=== PATIENT | male | born 1960 | race Caucasian/White ===

== ENCOUNTER 2018-01-31 13:59 | Inpatient (IN) | payer OTHER ==
[~2018-01-31] VITALS: Ht 186.7 cm; Wt 145.1 kg
[2018-01-31 15:31] VITALS: BP 176/78
[2018-01-31] MEDS ORDERED: ASPI-630 PO (16:04)
[2018-01-31] MEDS ORDERED: MULT1TAB52 PO (16:04)
[2018-01-31] MEDS ORDERED: CHOL100013 PO (16:04)
[2018-01-31] MEDS ORDERED: PIOG30TA41 PO (16:04)
[2018-01-31] MEDS ORDERED: LISI-130 PO (16:04)
[2018-01-31 16:24] LABS: BASO # 0.1 x10^3/uL (0.0-0.2); BASO % 1 % (0-3); EOS # 0.1 x10^3/uL (0.0-0.7); EOS % 1 % (0-3); HEMATOCRIT 42.6 % (39.0-53.0); HEMOGLOBIN 14.7 g/dL (13.0-17.5); LYMPH # 1.9 x10^3/uL (1.0-4.8); LYMPH % 24 % (24-48); MEAN CORPUSCULAR HEMOGLOBIN 32 pg (25-35); MEAN CORPUSCULAR HGB CONC 35 g/dL (31-37); MEAN CORPUSCULAR VOLUME 92 fL (79-100); MONO # 0.8 x10^3/uL (0.0-1.1); MONO % 10 % (0-9); NEUT # 5.3 x10^3uL (1.8-7.7); NEUT % 64 % (31-73); PLATELET COUNT 222 x10^3/uL (140-400); RED BLOOD COUNT 4.62 x10^6/uL (4.30-5.70); RED CELL DISTRIBUTION WIDTH 13.6 % (11.5-14.5); WHITE BLOOD COUNT 8.3 x10^3/uL (4.0-11.0)
[2018-01-31] MEDS: MORPHINE SULFATE 4 MG/ML VIAL. IV PRN ×2 (16:37→21:35)
[2018-01-31] MEDS ORDERED: methylPREDNISolone SOD SUCC PF 125 MG/2 ML VIAL. IV ONE (16:45)
[2018-01-31 16:55] LABS: ALBUMIN 3.4 g/dL (3.4-5.0); ALBUMIN/GLOBULIN RATIO 0.8 (1.0-1.7); CALCIUM 9.4 mg/dL (8.5-10.1); CREATININE 0.9 mg/dL (0.7-1.3); POTASSIUM 4.1 mmol/L (3.5-5.1); TOTAL BILIRUBIN 0.5 mg/dL (0.2-1.0); TOTAL PROTEIN 7.9 g/dL (6.4-8.2)
[2018-01-31] MEDS ORDERED: INSULIN LISPRO 300 UNITS/3 ML INSULN.PEN. SQ SCH (17:00)
[2018-01-31] MEDS ORDERED: DEXTROSE 50% 25 GM / 50ML DISP.SYRIN. IV PRN (18:30)
[2018-01-31 19:00] VITALS: BP 163/92
[2018-01-31] MEDS: HYDROcodone/APAP 5/325MG 1 TAB TABLET PO PRN (19:34)
[2018-01-31 23:00] VITALS: BP 170/87
[2018-02-01 03:00] VITALS: BP 162/78
[2018-02-01] MEDS: MORPHINE SULFATE 2 MG/ML VIAL. IV PRN ×2 (03:20→21:31)
[2018-02-01] MEDS ORDERED: PROPOFOL 20 ML IV ONE (06:54)
[2018-02-01 07:00] VITALS: BP 158/85
--- NOTE | 2018-02-01 08:34 | RAD ---
EXAM: Lumbar spine MRI without contrast. HISTORY: Back pain and leg weakness. TECHNIQUE: Multiplanar, multisequence magnetic resonance imaging of the lumbar spine was performed without contrast. COMPARISON: None. FINDINGS: There is a moderate subacute compression fracture of L1 with approximately 50 percent loss of central vertebral body height. There is no significant retropulsion of the cortex at this level. There is a moderate to severe compression fracture at L4 with approximately 75 percent loss of central vertebral height. This demonstrates slight edema along the fracture line, suggesting a late subacute etiology. There is no retropulsion of the cortex at this level. There is a moderate to severe compression fracture of L3 with approximately 75 percent loss of central vertebral height. This demonstrates trace edema along the fracture line, suggesting a late subacute to early chronic etiology. There is no retropulsion of the cortex at this level. There is a chronic mild compression fracture of T11, chronic moderate compression fracture of L2 and chronic minimal compression fracture of L5, none of which demonstrate retropulsion of the cortex into the central canal. There is mild scoliosis. There is grade 1 anterolisthesis of L5 on S1, measuring 12 mm. There are pars defects at this level. There is degenerative endplate remodeling and Schmorl's node formation at all levels. There is disc desiccation at multiple levels. There is endplate remodeling with disc space narrowing predominantly at L5-S1. There is congenital narrowing of the central canal at the upper and mid lumbar levels. There is epidural lipomatosis primarily at the lower lumbar levels and within the sacral canal. At T12-L1, there is mild bilateral facet arthropathy. There is epidural lipomatosis. There is congenital narrowing of the central canal. There is mild central canal stenosis. At L1-L2, there is a mild disc bulge and endplate remodeling. There is mild bilateral facet arthropathy. There is epidural lipomatosis. There is congenital narrowing of the central canal. There is mild bilateral foraminal stenosis. There is moderate central canal stenosis. At L2-L3, there is a disc bulge and endplate osteophytosis. There is mild left greater than right facet arthropathy. There is epidural lipomatosis. There is congenital narrowing of the central canal. There is moderate central canal stenosis with crowding of the nerve roots. At L3-L4, there is a diffuse disc bulge and endplate osteophytosis. There is mild bilateral facet arthropathy. There is epidural lipomatosis. There is congenital narrowing of the central canal. There is moderate to severe central canal stenosis with crowding of the nerve roots. At L4-L5, there is a disc bulge and endplate osteophytosis. There is moderate bilateral facet arthropathy. There is mild right foraminal stenosis. There is epidural lipomatosis. There is mild central canal stenosis. At L5-S1, there is a right foraminal to extra foraminal disc protrusion superior extrusion superimposed on a disc bulge and endplate osteophytosis. There is moderate facet arthropathy. There is grade 1 anterolisthesis with pars defects. There is epidural lipomatosis. There is severe right and mild left foraminal stenosis. There is moderate narrowing of the thecal sac and crowding of the nerve roots due to aforementioned epidural lipomatosis. IMPRESSION: 1. Moderate subacute compression fracture of L1. 2. Moderate to severe suspected late subacute compression fracture of L4. 3. Moderate to severe suspected late subacute to early chronic compression fracture of L3. 4. Chronic mild compression fracture of T11, chronic moderate compression fracture of L2 and chronic minimal compression fracture of L5. 5. Multilevel degenerative change throughout the lumbar spine, described in detail above. The combination of degenerative changes and epidural lipomatosis and congenital narrowing of the central canal results in stenosis noted above. 6. Grade 1 anterolisthesis of L5 on S1 with associated bilateral pars defects. Electronically signed by: Argelia Bradford MD (02/01/2018 8:30 AM) [id number]
[2018-02-01] MEDS: MORPHINE SULFATE 4 MG/ML VIAL. IV PRN ×3 (08:54→17:46)
[2018-02-01] MEDS: MULTIVITAMIN with MINERAL TABLET. PO SCH (08:55)
[2018-02-01] MEDS: PIOGLITAZONE 15 MG TABLET. PO SCH (08:55)
[2018-02-01] MEDS: LISINOPRIL 20 MG TABLET PO SCH (08:55)
[2018-02-01] MEDS: ASPIRIN CHEWABLE 81 MG TABLET. PO SCH (08:55)
[2018-02-01] MEDS: CHOLECALCIFEROL (VITAMIN D3) 1,000 UNIT TABLET PO SCH (08:55)
--- NOTE | 2018-02-01 09:01 | HP ---
ADMIT DATE: 01/31/2018 CHIEF COMPLAINT AND HISTORY OF PRESENT ILLNESS: This 58-year-old white male is well known to me from followup in the office. The patient was admitted for intractable back pain with lumbar radiculopathy. This has been going on at least 6 weeks. We did, after initial denials for MRI of the lumbar spine, have him sit up earlier this week and his pain was so severe he was not able to lay down for it. It was felt that he needed to be admitted for better pain control and possibly sedation to get an MRI done. The pain is predominantly back related, goes down his left thigh on the outside with a burning. It is much worse lying down. He does notice increased pain with cough or sneeze. He denies any definite weakness or bladder difficulties with the same. PAST MEDICAL HISTORY: Remarkable for diabetes, prior Krum-Schlatter surgery as a teenager. 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 MEDICATIONS: Brought with the patient, listed on the computer, have been addressed. ALLERGIES: He has no known drug allergies. SOCIAL HISTORY: He is a tobacco as well as alcohol user, but not to excess. Single, lives with his mom and cares for his elderly mother, works at [employer]. FAMILY HISTORY: Noncontributory. REVIEW OF SYSTEMS: As mentioned above. PHYSICAL EXAMINATION: GENERAL: He is well-developed, well-nourished white male in a moderate amount of distress, sitting up in the bed. VITAL SIGNS: Remarkable for elevated blood pressure, likely due to pain. He is afebrile. HEAD, EYES, EARS, NOSE AND THROAT: Remarkable for glasses. NECK: Supple without adenopathy or thyromegaly. CHEST: Clear to auscultation and percussion. HEART: Regular rate and rhythm without S3, S4 or murmur. ABDOMEN: Soft, nontender, without hepatosplenomegaly or masses. EXTREMITIES: Without cyanosis, clubbing, edema. NEUROLOGIC: He is intact. IMPRESSION: Intractable lumbar radiculopathy. PLAN: At this point, his aspirin will be held in hopes of an epidural steroid injection. I am going to ask Dr. Peralta from pain management for the same. Dr. Deutsch to see him in consultation for possible surgery if needed. He does seem to be somewhat improved this morning after the dose of Solu-Medrol, although it has raised his blood sugars, but this may be something we have to tolerate for the meantime to get him relief enough to be able to function as an outpatient. BUSTER LEMONS MD DR: JAZIEL/helene JOB#: [id number] / [id number]
[2018-02-01] MEDS: INSULIN LISPRO 300 UNITS/3 ML INSULN.PEN. SQ SCH ×3 (09:03→17:56)
[2018-02-01] MEDS: HYDROcodone/APAP 5/325MG 1 TAB TABLET PO PRN ×2 (10:08→15:02)
[2018-02-01] MEDS ORDERED: IOHEXOL 180 MG/ML 10 ML VIAL. ONE (10:37)
[2018-02-01] MEDS ORDERED: methylPREDNISolone ACETATE 80 MG/ML VIAL. ONE (10:37)
[2018-02-01] MEDS ORDERED: methylPREDNISolone ACETATE 40 MG/ML VIAL. ONE (10:37)
[2018-02-01 10:49] VITALS: BP 172/82
[2018-02-01] MEDS ORDERED: DOCUSATE SODIUM 100 MG CAPSULE. PO PRN (12:00)
[2018-02-01 15:00] VITALS: BP 142/78
--- NOTE | 2018-02-01 15:24 | PDOC ---
SUBJECTIVE Subjective low back and left leg pain OBJECTIVE Objective 58 yo male C/O low back and left LE pain X 6 weeks, no specific injury/accident Vital Signs Vital Signs Date Time Temp Pulse Resp B/P (MAP) Pulse Ox O2 Delivery O2 Flow Rate FiO2 02/01/18 15:02 Room Air 02/01/18 14:00 Room Air 02/01/18 13:20 Room Air 02/01/18 11:52 Room Air 02/01/18 10:49 97.9 99 20 172/82 (112) 98 Room Air 97.9 02/01/18 10:08 20 93 Room Air 02/01/18 08:55 87 164/89 02/01/18 08:54 Room Air 02/01/18 08:15 98.1 90 15 173/86 98 Room Air 98.1 02/01/18 07:00 97.7 80 20 158/85 (109) 97 Room Air 97.7 02/01/18 03:53 15 92 Room Air 02/01/18 03:20 17 92 Room Air 02/01/18 03:00 98.2 98 18 162/78 (106) 92 Room Air 98.2 01/31/18 23:00 98.2 105 20 170/87 (114) 92 Room Air 98.2 01/31/18 22:58 14 96 01/31/18 21:35 15 96 Room Air 01/31/18 20:41 14 96 01/31/18 19:34 15 96 Room Air 01/31/18 19:00 98.3 77 18 163/92 (115) 93 Room Air 98.3 01/31/18 16:37 Room Air 01/31/18 16:29 Room Air 01/31/18 15:31 98.0 83 16 176/78 (110) 96 Room Air 98.0 I & O Intake and Output 02/01/18 07:00 Intake Total 100 ml Balance 100 ml Intake Oral 100 ml # Voids 3 PHYSICAL EXAM Physical Exam A&O X 3 HEENT NCAT BS= and clear Heart s1,s2 clear Abd obese, soft nd,nt LE DTR's 1+/$ bilat; motor 4/5left; 5/5right Back with increased pain with extension and when standing ASSESSMENT/PLAN Assessment/Plan MRI reviewed with pt. Rubi MTZ today F/U as OP COMMENT Lab Laboratory Tests Test 01/31/18 15:46 01/31/18 16:10 01/31/18 19:46 02/01/18 08:52 Glucose (Fingerstick) 107 mg/dL (70-99) 245 mg/dL (70-99) 166 mg/dL (70-99) White Blood Count 8.3 x10^3/uL (4.0-11.0) Red Blood Count 4.62 x10^6/uL (4.30-5.70) Hemoglobin 14.7 g/dL (13.0-17.5) Hematocrit 42.6 % (39.0-53.0) Mean Corpuscular Volume 92 fL (79-100) Mean Corpuscular Hemoglobin 32 pg (25-35) Mean Corpuscular Hemoglobin Concent 35 g/dL (31-37) Red Cell Distribution Width 13.6 % (11.5-14.5) Platelet Count 222 x10^3/uL (140-400) Neutrophils (%) (Auto) 64 % (31-73) Lymphocytes (%) (Auto) 24 % (24-48) Monocytes (%) (Auto) 10 % (0-9) Eosinophils (%) (Auto) 1 % (0-3) Basophils (%) (Auto) 1 % (0-3) Neutrophils # (Auto) 5.3 x10^3uL (1.8-7.7) Lymphocytes # (Auto) 1.9 x10^3/uL (1.0-4.8) Monocytes # (Auto) 0.8 x10^3/uL (0.0-1.1) Eosinophils # (Auto) 0.1 x10^3/uL (0.0-0.7) Basophils # (Auto) 0.1 x10^3/uL (0.0-0.2) Sodium Level 132 mmol/L (136-145) Potassium Level 4.1 mmol/L (3.5-5.1) Chloride Level 95 mmol/L (98-107) Carbon Dioxide Level 29 mmol/L (21-32) Anion Gap 8 (6-14) Blood Urea Nitrogen 18 mg/dL (8-26) Creatinine 0.9 mg/dL (0.7-1.3) Estimated GFR (Cockcroft-Gault) 87.0 BUN/Creatinine Ratio 20 (6-20) Glucose Level 127 mg/dL (70-99) Calcium Level 9.4 mg/dL (8.5-10.1) Total Bilirubin 0.5 mg/dL (0.2-1.0) Aspartate Amino Transf (AST/SGOT) 20 U/L (15-37) Alanine Aminotransferase (ALT/SGPT) 29 U/L (16-63) Alkaline Phosphatase 167 U/L (46-116) Total Protein 7.9 g/dL (6.4-8.2) Albumin 3.4 g/dL (3.4-5.0) Albumin/Globulin Ratio 0.8 (1.0-1.7) Test 02/01/18 11:05 Glucose (Fingerstick) 201 mg/dL (70-99) MANJINDER MIN MD Feb 01, 2018 15:24
[2018-02-01 19:00] VITALS: BP 130/68
[2018-02-01 23:00] VITALS: BP 115/73
[2018-02-02] MEDS: HYDROcodone/APAP 5/325MG 1 TAB TABLET PO PRN ×3 (00:44→12:30)
[2018-02-02 03:00] VITALS: BP 155/77
[2018-02-02] MEDS: MORPHINE SULFATE 2 MG/ML VIAL. IV PRN (03:43)
[2018-02-02 07:00] VITALS: BP 165/84
[2018-02-02] MEDS: CHOLECALCIFEROL (VITAMIN D3) 1,000 UNIT TABLET PO SCH (08:35)
[2018-02-02] MEDS: PIOGLITAZONE 15 MG TABLET. PO SCH (08:35)
[2018-02-02] MEDS: MULTIVITAMIN with MINERAL TABLET. PO SCH (08:35)
[2018-02-02] MEDS: ASPIRIN CHEWABLE 81 MG TABLET. PO SCH (08:36)
[2018-02-02] MEDS: LISINOPRIL 20 MG TABLET PO SCH (08:36)
[2018-02-02] MEDS: MORPHINE SULFATE 4 MG/ML VIAL. IV PRN (08:37)
[2018-02-02] MEDS: INSULIN LISPRO 300 UNITS/3 ML INSULN.PEN. SQ SCH ×2 (08:43→12:00)
--- NOTE | 2018-02-02 08:46 | PDOC ---
GENERAL General: see discharge summary. VITAL SIGNS Vital Signs: Vital Signs Date Time Temp Pulse Resp B/P (MAP) Pulse Ox O2 Delivery O2 Flow Rate FiO2 02/02/18 08:43 Room Air 02/02/18 08:36 64 165/84 02/02/18 04:30 13 97 02/02/18 03:00 97.7 97.7 I & O I & O Intake and Output 02/02/18 07:00 Intake Total 780 ml Balance 780 ml Intake Oral 780 ml # Voids 4 ALLERGIES Allergies: Allergies Coded Allergies Type Severity Reaction Last Updated Verified No Known Drug Allergies 01/31/18 No MEDS Medications: Current Medications Medications (Trade) Dose Ordered Sig/Triny Start Time Stop Time Status Last Admin Dose Admin Acetaminophen/ Hydrocodone Bitart (Lortab 5/325) 1 tab PRN Q4HRS PRN 01/31/18 15:45 02/02/18 07:23 1 TAB Aspirin (Children'S Aspirin) 81 mg DAILY 02/01/18 09:00 02/02/18 08:36 81 MG Dextrose (Dextrose 50%-Water Syringe) 12.5 gm PRN Q15MIN PRN 01/31/18 18:30 Docusate Sodium (Colace) 100 mg PRN DAILY PRN 02/01/18 12:00 02/01/18 13:19 100 MG Insulin Human Lispro (HumaLOG) 0-5 UNITS TIDWMEALS 02/01/18 08:00 02/02/18 08:43 2 UNITS Iohexol (Omnipaque 180 Mg/ml) 10 ml STK-MED ONCE 02/01/18 10:37 02/01/18 10:38 DC Lisinopril (Prinivil) 40 mg DAILY 02/01/18 09:00 02/02/18 08:36 40 MG Methylprednisolone Acetate (DEPO-Medrol 40MG VIAL) 40 mg STK-MED ONCE 02/01/18 10:37 02/01/18 10:38 DC Methylprednisolone Acetate (DEPO-Medrol 80MG VIAL) 80 mg STK-MED ONCE 02/01/18 10:37 02/01/18 10:38 DC Methylprednisolone Sodium Succinate (SOLU-Medrol 125MG VIAL) 125 mg 1X ONCE 01/31/18 16:45 01/31/18 16:46 DC 11/28/18 16:37 125 MG Morphine Sulfate (Morphine Sulfate) 4 mg PRN Q4HRS PRN 01/31/18 15:45 02/02/18 08:37 4 MG Multivitamins (Thera M Plus) 1 tab DAILY 02/01/18 09:00 02/02/18 08:35 1 TAB Pioglitazone HCl (Actos) 30 mg DAILY 02/01/18 09:00 02/02/18 08:35 30 MG Polyethylene Glycol (miraLAX PACKET) 34 gm DAILY 02/02/18 09:00 02/02/18 08:35 34 GM Propofol 20 ml @ As Directed STK-MED ONCE 02/01/18 06:54 02/01/18 06:55 DC Vitamin D (Vitamin D3) 1,000 unit DAILY 02/01/18 09:00 02/02/18 08:35 1,000 UNIT LAB Lab: Laboratory Tests Test 02/01/18 08:52 02/01/18 11:05 02/01/18 17:28 02/01/18 19:56 Glucose (Fingerstick) 166 mg/dL (70-99) 201 mg/dL (70-99) 162 mg/dL (70-99) 275 mg/dL (70-99) Test 02/02/18 07:32 Glucose (Fingerstick) 184 mg/dL (70-99) BUSTER LEMONS MD Feb 02, 2018 08:46
[2018-02-02] MEDS ORDERED: POLYETHYLENE GLYCOL 3350 17 GM PACKET. PO SCH (09:00)
[2018-02-02 11:00] VITALS: BP 144/74
--- NOTE | 2018-02-03 21:38 | PN ---
DATE: 02/02/2018 PRIMARY DIAGNOSIS: Intractable lumbar radiculopathy. ADDITIONAL DIAGNOSES: Multiple subacute compression fractures of the dorsal spine of uncertain etiology, diabetes mellitus, prior toe amputation due to diabetes, hypertension. CHIEF COMPLAINT AND HISTORY OF PRESENT ILLNESS: This is a 58-year-old white male well known to me comes in for followup in the office. The patient was admitted for intractable back pain with lumbar radiculopathy. This has been going on for at least 6 weeks. We did after initial denials the MRI of the lumbar spine, had been set up earlier this year to get the same done and pain was so severe he was unable to lay down for it. It was felt he needed to be admitted for pain control and sedation and get the MRI done. Pain is predominantly back related, goes down left thigh on the outside with a severe burning. It is much worse to him lying down. He has noticed increased pain, cough or sneeze. Denies any weakness or bladder dysfunction with the same. SUMMARY OF STAY: The patient was admitted. He was sedated. MRI was obtained. To my surprise, MRI had multiple abnormalities with a moderate subacute compression fracture of L1 and [id number] suspected late subacute compression fracture of L4, moderate-to severe suspected late subacute to early chronic compression fracture of L3 with chronic mild compression fracture of T11 and chronic moderate compression fracture of L1 and chronic minimal compression fracture of L5. He had multilevel degenerative changes throughout the lumbar spine. The combination of degenerative changes epidural lipomatosis and congenital narrowing of the spinal canal results in spinal stenosis with grade 1 anterolisthesis of L5 on S1. Dr. Stu Peralta saw in consultation, did an epidural steroid injection with much improvement in his pain symptomatology, but on the day of discharge, saw neurosurgery, although note not available, but was told they did not feel this was a surgical problem. He was pushing for discharge with his brother visiting from [place], his pain being decreased, and this was accomplished on the day of dismissal. DISPOSITION: The patient is discharged to home, ADA diet, activity as tolerated, office early next week. DISCHARGE MEDICATIONS: Those of his regular home medications and we are going to have to embark on a workup of the reasons why he may have all these compression fractures, as there is no good etiology present by history of an injury to cause such the same. Total protein and his bloods are normal, calcium levels are normal and I am not sure how to explain these unexplained fractures. BUSTER LEMONS MD DR: JAZIEL/helene JOB#: [id number] / [id number]
== END 2018-02-02 13:47 | disposition home or self-care (01) | DRG 552 ==
LOC: 5 SOUTH 13:59
PROVIDERS: ADMIT Family Medicine; ATTEND Family Medicine
PROC: 3E0S33Z Introduction of Anti-inflammatory into Epidural Space, Percutaneous Approach (ICD-10-PCS; principal; 2018-01-31)
PROC: 3E0S3BZ Introduction of Anesthetic Agent into Epidural Space, Percutaneous Approach (ICD-10-PCS; 2018-01-31)
DX: M54.16 Radiculopathy, lumbar region (principal); M48.56XA Collapsed vertebra, not elsewhere classified, lumbar region, initial encounter for fracture; M48.061 Spinal stenosis, lumbar region without neurogenic claudication; I10 Essential (primary) hypertension; E11.9 Type 2 diabetes mellitus without complications; Z89.439 Acquired absence of unspecified foot
CPT/HCPCS: 36415; 62323; 72148; 80053; 82962; 85025; J1030; J1040; J1815; J2270; J2704; J2930; Q9965

== ENCOUNTER 2019-02-01 12:31 | Emergency (ER) | payer SELFPAY ==
[~2019-02-01] VITALS: Ht 185.4 cm; Wt 145.1 kg
[~2019-02-01 12:31] MED LIST: ASPI-630 PO; CHOL100013 PO; LISI-130 PO; MULT1TAB52 PO; PIOG30TA41 PO
[2019-02-01 13:08] VITALS: BP 181/78
--- NOTE | 2019-02-01 14:10 | RAD ---
HIP RIGHT 2V WITH PELVIS DATE: 02/01/2019 12:00 AM INDICATION: Right hip pain for one week COMPARISON: None. FINDINGS: Bones: There is no evidence of acute fracture or dislocation. Joints: The joint spaces are normal. Miscellaneous: None. IMPRESSION: No evidence of acute fracture. Electronically signed by: Camron Thorpe MD (02/01/2019 2:07 PM) [id number]
--- NOTE | 2019-02-01 14:18 | PHYS DOC ---
Past Medical History Past Medical History: Diabetes-Type II, High Cholesterol, Hypertension, Other Additional Past Medical Histor: CHRONIC BACK PAIN (LEIGH ASH APRN) Past Surgical History: Knee Replacement Additional Past Surgical Histo: TOE AMPUTATION (LEIGH ASH APRN) Alcohol Use: Heavy Additional Information: "6PK A DAY, FEW SHOTS" Drug Use: Marijuana (LEIGH ASH APRN) Attending Signature I have participated in the care of this patient and I have reviewed and agree with all pertinent clinical information above including history, exam, and recommendations. (SARAH ALLRED MD) Adult General Chief Complaint Chief Complaint: HIP PAIN HPI HPI Patient is a 59 year old male who presents to the emergency department with complaints of right hip pain for the last week. Patient states that he started to fall in the catching himself awkwardly a week ago. He reports having right hip pain since the injury. Patient denies ever falling. He states he has been taking his hydrocodone at home for relief of the pain reports that the pain persists. He denies any inability to ambulate, he reports pain with ambulation. Currently the patient rates his pain a 6 out of 10 on the pain scale, the pain increases with weightbearing and movement, there are no alleviating factors. All other ROS is neg unless otherwise noted in HPI. (LEIGH ASH APRN) Review of Systems Review of Systems See Above (LEIGH ASH APRN) Allergies Allergies Allergies Coded Allergies Type Severity Reaction Last Updated Verified No Known Drug Allergies 01/31/18 No (SARAH ALLRED MD) Physical Exam Physical Exam See Above Constitutional: Well developed, well nourished, no acute distress, non-toxic appearance, Obese. [] HENT: Normocephalic, atraumatic, bilateral external ears normal, nose normal. [] Eyes: PERRLA, EOMI, conjunctiva normal, no discharge. [] Neck: Normal range of motion, no stridor. [] Lungs & Thorax: Respirations even and unlabored, no retractions, no respiratory distress Skin: Warm, dry, no erythema, no rash. [] Extremities: R hip; no cyanosis, no clubbing, ROM intact, no edema; pain in R groin with ROM. [] Neurologic: Alert and oriented X 3, no focal deficits noted. [] Psychologic: Affect normal, judgement normal, mood normal. [] (LEIGH ASH APRN) Current Patient Data Vital Signs Vital Signs Date Time Temp Pulse Resp B/P (MAP) Pulse Ox O2 Delivery O2 Flow Rate FiO2 02/01/19 13:08 98.8 88 16 181/78 (112) 97 Room Air 98.8 (SARAH ALLRED MD) EKG EKG [] (LEIGH ASH APRN) Radiology/Procedures Radiology/Procedures PROCEDURE: HIP RIGHT 2V WITH PELVIS HIP RIGHT 2V WITH PELVIS DATE: 02/01/2019 12:00 AM INDICATION: Right hip pain for one week COMPARISON: None. FINDINGS: Bones: There is no evidence of acute fracture or dislocation. Joints: The joint spaces are normal. Miscellaneous: None. IMPRESSION: No evidence of acute fracture. [] (LEIGH ASH APRN) Course & Med Decision Making Course & Med Decision Making Pertinent Labs and Imaging studies reviewed. (See chart for details) Patient is a 59-year-old obese male who presented to the emergency department with complaints of right hip pain for the last week. Patient reported a injury 1 week ago. He denied any fall. While in the emergency department the patient did have high blood pressure. Patient denied history of high blood pressure however reports that his blood pressure does get high when he has pain. His x-ray was negative for any acute fracture. Advised the patient that this is likely a strain. Continue taking his hydrocodone we'll prescribe and naproxen. Patient declined a muscle relaxer. Encouraged patient to follow-up with his primary care doctor next week for further evaluation of hypertension and groin strain. Patient verbalized an understanding of home care, medications, follow-up, and return to ED instructions and was in agreement with the plan of care. [] (LEIGH ASH APRN) Dragon Disclaimer Dragon Disclaimer This electronic medical record was generated, in whole or in part, using a voice recognition dictation system. (LEIGH ASH APRN) Departure Departure Impression: Primary Impression: Strain of right hip Additional Impression: Hypertension Disposition: HOME, SELF-CARE Condition: STABLE Referrals: BUSTER LEMONS MD (PCP) Patient Instructions: Hip Pain, Hypertension, [id number], Muscle Strain, [id number] Additional Instructions: Fill the prescription and use as directed. Take your hydrocodone as needed for severe pain. Activity as tolerated. Your blood pressure today was 185/77, follow up with your doctor in 1-2 days about your blood pressure and for reevaluation. Return to the ER if symptoms worsen. Scripts Naproxen (NAPROXEN) 500 Mg Tablet 1 TAB PO BID for pain for 10 Days, #20 TAB 0 Refills Prov: LEIGH ASH APRN 02/01/19 Problem Qualifiers Primary Impression: Strain of right hip Encounter type: initial encounter Qualified Codes: S76.011A - Strain of muscle, fascia and tendon of right hip, initial encounter Additional Impression: Hypertension Hypertension type: unspecified Qualified Codes: I10 - Essential (primary) hypertension LEIGH ASH APRN Feb 01, 2019 14:18 SARAH ALLRED MD Feb 02, 2019 19:03
[2019-02-01] MEDS ORDERED: NAPR-514 PO (14:42)
== END 2019-02-01 15:00 | disposition home or self-care (01) ==
LOC: ER 12:31
DX: S76.011A Strain of muscle, fascia and tendon of right hip, initial encounter (principal); G89.29 Other chronic pain; I10 Essential (primary) hypertension; E11.9 Type 2 diabetes mellitus without complications; E78.00 Pure hypercholesterolemia, unspecified; Z68.41 Body mass index [BMI] 40.0-44.9, adult; E66.9 Obesity, unspecified; F10.20 Alcohol dependence, uncomplicated; F12.90 Cannabis use, unspecified, uncomplicated; Y90.9 Presence of alcohol in blood, level not specified; F17.210 Nicotine dependence, cigarettes, uncomplicated; Z96.659 Presence of unspecified artificial knee joint; W18.39XA Other fall on same level, initial encounter; Y93.89 Activity, other specified; Y92.89 Other specified places as the place of occurrence of the external cause; Y99.8 Other external cause status
CPT/HCPCS: 73502; 99284

== ENCOUNTER 2020-05-04 10:50 | Inpatient (IN) | payer MEDICARE, OTHER ==
[~2020-05-04] VITALS: Ht 185.4 cm; Wt 155.1 kg
[2020-05-04] VITALS (18 sets, daily range): BP systolic 50–144; BP diastolic 32–64
[~2020-05-04 10:50] MED LIST changes: +AMLO-186 PO; +AMOX1TAB11 PO; +DICL75TA PO; +FURO40TA4 PO; +Fluconazole PO; +HYDR-2759 PO; +LISI30TA4 PO; +MULT-445 PO; -MULT1TAB52 PO; +NAPR-514 PO
[2020-05-04 11:28] LABS: BILIRUBIN,URINE SMALL (NEG); CLARITY,URINE CLOUDY; COLOR,URINE AMBER; NITRITE,URINE NEGATIVE (NEG); PROTEIN,URINE 100 mg/dL (NEG-TRACE)
[2020-05-04 11:39] LABS: BASO % 0 % (0-3); EOS % 0 % (0-3); HEMATOCRIT 38.8 % (39.0-53.0); HEMOGLOBIN 13.2 g/dL (13.0-17.5); LYMPH # 0.1 x10^3/uL (1.0-4.8); LYMPH % 14 % (24-48); MEAN CORPUSCULAR HEMOGLOBIN 28 pg (25-35); MEAN CORPUSCULAR HGB CONC 34 g/dL (31-37); MEAN CORPUSCULAR VOLUME 83 fL (79-100); MONO # 0.3 x10^3/uL (0.0-1.1); MONO % 49 % (0-9); NEUT # 0.2 x10^3/uL (1.8-7.7); NEUT % 37 % (31-73); PLATELET COUNT 86 x10^3/uL (140-400); RED BLOOD COUNT 4.68 x10^6/uL (4.30-5.70); RED CELL DISTRIBUTION WIDTH 19.3 % (11.5-14.5)
[2020-05-04 11:41] LABS: WHITE BLOOD COUNT 0.7 x10^3/uL (4.0-11.0)
[2020-05-04 11:41] LABS: BARBITURATES NEG (NEG); BENZODIAZEPINES NEG (NEG); CANNABINOIDS NEG (NEG); COCAINE NEG (NEG); METHADONE NEG (NEG); OPIATES POS (NEG); PHENCYCLIDINE NEG (NEG)
[2020-05-04 11:42] LABS: BACTERIA,URINE MANY /HPF (0-FEW); RBC,URINE 20-40 /HPF (0-2); WBC,URINE >40 /HPF (0-4)
[2020-05-04 11:45] LABS: AMPHETAMINE/METHAMPHETAMINE NEG (NEG)
[2020-05-04] MEDS ORDERED: cefTRIAXone IV Push 1 GM VIAL. IVP ONE (11:45)
[2020-05-04] MEDS ORDERED: IV NORMAL SALINE 1000ML BAG 1,000 ML IV ONE (11:45)
[2020-05-04 11:56] LABS: ALBUMIN 2.5 g/dL (3.4-5.0); ALBUMIN/GLOBULIN RATIO 0.6 (1.0-1.7); CALCIUM 8.4 mg/dL (8.5-10.1); CREATININE 3.4 mg/dL (0.7-1.3); GFR 18.6; POTASSIUM 5.6 mmol/L (3.5-5.1); TOTAL BILIRUBIN 1.8 mg/dL (0.2-1.0); TOTAL PROTEIN 6.4 g/dL (6.4-8.2)
[2020-05-04 12:03] LABS: BASE EXCESS ABG -7 mmol/L (-3-3); HCO3 ABG 18 mmol/L (21-28); PCO2 ABG 34 mmHg (35-46); PO2 ABG 75 mmHg (65-108); SAT O2 ABG 94 % (92-99)
[2020-05-04 12:04] LABS: FIO2 ABG 40%/ 5LNC
--- NOTE | 2020-05-04 12:09 | RAD ---
CT HEAD WITHOUT CONTRAST 05/04/2020 11:23 AM Indication: Reason: BACK PAIN S/P FALL / Spl. Instructions: / History: Procedure: Multidetector CT imaging of the head was performed without the administration of contrast. Findings: There is no evidence of acute intracranial hemorrhage. There is no evidence of acute territ orial infarction. Please note that CT is limited for evaluation of acute ischemia. No mass effect or midline shift is identified . The ventricles and basilar cisterns have an appropriate appearance. No abnormal extra-axial fluid collections are seen. No acute osseous changes are identified. Impression: No evidence of acute intracranial abnormality CT DOSING PQRS STATEMENT: One or more of the following individualized dose reduction techniques were utilized for this examinat ion: 1. Automated exposure control 2. Adjustment of the mA and/or kV according to patient size 3. Use of iterative reconstruction technique Electronically signed by: Will Crooks MD (05/04/2020 12:07 PM) [id number]
--- NOTE | 2020-05-04 12:09 | EKG ---
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
[2020-05-04 12:30] LABS: % BANDS 5 % (0-9); % BASOS 1 % (0-3); % EOS 1 % (0-5); % LYMPHS 17 % (24-48); % MONOS 45 % (0-10); % SEGS 31 % (35-66); PLT ESTIMATE DECREASED (ADEQUATE); TOXIC GRANULATION MARKED; TOXIC VACUOLATION MARKED
--- NOTE | 2020-05-04 12:30 | RAD ---
Examination: CT lumbar spine without contrast HISTORY: History of fall, confusion COMPARISON: MRI from 03/18/2019 TECHNIQUE: Axial CT images of the lumbar spine was performed without contrast. Coronal and sagittal r eformats are performed Exposure: One or more of the following individualized dose reduction techniques were utilized for thi s examination: 1. Automated exposure control 2. Adjustment of the mA and/or kV according to patient size 3. Use of iterative reconstruction technique FINDINGS: Moderate compression changes of T12, L1, L2, L3, L4, L5 vertebral level identified with lucency ident ified in the L1 vertebral body with comminution. Moderate multilevel disc bulge identified in the lum bar spine likely degenerative changes. Mild bibasilar lung atelectasis. Moderate aortic atherosclerosis. IMPRESSION: 1. Lucency identified in the L1 vertebral body with comminution could be subacute or acute fracture. Recommend MRI for further evaluation. 2. Moderate compression changes of the lumbar vertebral bodies likely chronic. Electronically signed by: Nick Garcia MD (05/04/2020 12:28 PM) [id number]
--- NOTE | 2020-05-04 13:10 | RAD ---
XR CHEST 1V 05/04/2020 12:59 PM INDICATION: Shortness of breath, low blood cell count COMPARISON: None available TECHNIQUE: Portable frontal view of the chest is provided. FINDINGS: The cardiomediastinal silhouette is borderline enlarged. Mild pulmonary vascular congestion. No pleural effusions or pneumothorax. Fusion hardware identified within the mid thoracic spine. IMPRESSION: Constellation of findings suggestive of congestive heart failure. Interstitial pneumonitis may have s imilar appearance. Electronically signed by: Tianna Mckenna MD (05/04/2020 1:07 PM) [id number]
--- NOTE | 2020-05-04 13:44 | ED.ADGEN ---
Past Medical History Past Medical History: Diabetes-Type II, High Cholesterol, Hypertension, Other Additional Past Medical Histor: CHRONIC BACK PAIN Past Surgical History: Knee Replacement Additional Past Surgical Histo: TOE AMPUTATION Smoking Status: Current Some Day Smoker Alcohol Use: Heavy Drug Use: Marijuana General Adult EDM: Chief Complaint: MULTIPLE COMPLAINTS HPI: HPI: Patient is 60-year-old male who presents to the emergency room with altered mental status. According to EMS the call was for patient fell on the ground and had back pain. Patient has known chronic back pain. Upon arrival to the emergency room patient appears to be confused. He is unable to answer any questions appropriately. He was able to tell us he thinks he fell yesterday and has been laying on the floor since that time. Other history is unable to be obtained due to patient's altered mental status. Review of Systems: Review of Systems: Unable to obtain Current Medications: Current Medications Medications (Trade) Dose Ordered Sig/Triny Start Time Stop Time Status Last Admin Dose Admin Ceftriaxone Sodium (Rocephin) 1 gm 1X ONCE 05/04/20 11:45 05/04/20 11:46 DC 05/04/20 11:33 1 GM Sodium Chloride 1,000 ml @ 1,000 mls/hr 1X ONCE 05/04/20 11:45 05/04/20 12:44 DC 05/04/20 11:32 1,000 MLS/HR Allergies: Allergies: Allergies Coded Allergies Type Severity Reaction Last Updated Verified No Known Drug Allergies 01/31/18 No Physical Exam: PE: General: Awake, NAD. Ill-appearing HEENT: Atraumatic, EOMI, PERRL, airway patent, dry oral mucosa Neck: Supple, trachea midline Respiratory: Decreased breath sounds bilaterally with diffuse minimal crackles CV: RRR, no murmur GI: Soft, nondistended, nontender, no masses MSK: No obvious deformities Skin: Cool, mottled, decreased capillary refill at greater than 5 seconds Neuro: A&O x0, confused, does not follow commands, GCS12 Current Patient Data: Labs: Laboratory Tests Test 05/04/20 11:04 05/04/20 11:13 05/04/20 11:20 05/04/20 12:04 Glucose (Fingerstick) 171 mg/dL (70-99) H Urine Collection Type Unknown Urine Color Luisa Urine Clarity Cloudy Urine pH 7.0 (<5.0-8.0) Urine Specific [place] 1.020 (1.000-1.030) Urine Protein 100 mg/dL (NEG-TRACE) Urine Glucose (UA) Negative mg/dL (NEG) Urine Ketones (Stick) Trace mg/dL (NEG) Urine Blood Large (NEG) Urine Nitrite Negative (NEG) Urine Bilirubin Small (NEG) Urine Urobilinogen Dipstick 1.0 mg/dL (0.2 mg/dL) Urine Leukocyte Esterase Large (NEG) Urine RBC 20-40 /HPF (0-2) Urine WBC >40 /HPF (0-4) Urine Squamous Epithelial Cells Few /LPF Urine Bacteria Many /HPF (0-FEW) Urine Opiates Screen Pos (NEG) Urine Methadone Screen Neg (NEG) Urine Barbiturates Neg (NEG) Urine Phencyclidine Screen Neg (NEG) Urine Amphetamine/Methamphetamine Neg (NEG) Urine Benzodiazepines Screen Neg (NEG) Urine Cocaine Screen Neg (NEG) Urine Cannabinoids Screen Neg (NEG) Urine Ethyl Alcohol Neg (NEG) White Blood Count 0.7 x10^3/uL (4.0-11.0) *L Red Blood Count 4.68 x10^6/uL (4.30-5.70) Hemoglobin 13.2 g/dL (13.0-17.5) Hematocrit 38.8 % (39.0-53.0) L Mean Corpuscular Volume 83 fL (79-100) Mean Corpuscular Hemoglobin 28 pg (25-35) Mean Corpuscular Hemoglobin Concent 34 g/dL (31-37) Red Cell Distribution Width 19.3 % (11.5-14.5) H Platelet Count 86 x10^3/uL (140-400) L Neutrophils (%) (Auto) 37 % (31-73) Lymphocytes (%) (Auto) 14 % (24-48) L Monocytes (%) (Auto) 49 % (0-9) H Eosinophils (%) (Auto) 0 % (0-3) Basophils (%) (Auto) 0 % (0-3) Neutrophils # (Auto) 0.2 x10^3/uL (1.8-7.7) L Lymphocytes # (Auto) 0.1 x10^3/uL (1.0-4.8) L Monocytes # (Auto) 0.3 x10^3/uL (0.0-1.1) Eosinophils # (Auto) 0.0 x10^3/uL (0.0-0.7) Basophils # (Auto) 0.0 x10^3/uL (0.0-0.2) Segmented Neutrophils % 31 % (35-66) L Band Neutrophils % 5 % (0-9) Lymphocytes % 17 % (24-48) L Monocytes % 45 % (0-10) H Eosinophils % 1 % (0-5) Basophils % 1 % (0-3) Toxic Granulation Marked Toxic Vacuolation Marked Platelet Estimate Decreased (ADEQUATE) Sodium Level 119 mmol/L (136-145) *L Potassium Level 5.6 mmol/L (3.5-5.1) H Chloride Level 85 mmol/L (98-107) L Carbon Dioxide Level 19 mmol/L (21-32) L Anion Gap 15 (6-14) H Blood Urea Nitrogen 92 mg/dL (8-26) H Creatinine 3.4 mg/dL (0.7-1.3) H Estimated GFR (Cockcroft-Gault) 18.6 BUN/Creatinine Ratio 27 (6-20) H Glucose Level 154 mg/dL (70-99) H Lactic Acid Level 3.1 mmol/L (0.4-2.0) H Calcium Level 8.4 mg/dL (8.5-10.1) L Total Bilirubin 1.8 mg/dL (0.2-1.0) H Aspartate Amino Transferase (AST) 117 U/L (15-37) H Alanine Aminotransferase (ALT) 101 U/L (16-63) H Alkaline Phosphatase 256 U/L (46-116) H Ammonia < 10 mcmol/L (11-34) L Creatine Kinase 1234 U/L (39-308) H Troponin I Quantitative < 0.017 ng/mL (0.000-0.055) QN-Nnf-T-Type Natriuretic Peptide 6764 pg/mL (0-124) H Total Protein 6.4 g/dL (6.4-8.2) Albumin 2.5 g/dL (3.4-5.0) L Albumin/Globulin Ratio 0.6 (1.0-1.7) L Lipase 361 U/L (73-393) Ethyl Alcohol Level < 10 mg/dL (0-10) O2 Saturation 94 % (92-99) Arterial Blood pH 7.33 (7.35-7.45) L Arterial Blood pCO2 at Patient Temp 34 mmHg (35-46) L Arterial Blood pO2 at Patient Temp 75 mmHg (65-108) Arterial Blood HCO3 18 mmol/L (21-28) L Arterial Blood Base Excess -7 mmol/L (-3-3) L FiO2 40%/ 5lnc Test 05/04/20 13:44 05/04/20 14:45 SARS-CoV-2 Antigen (Rapid) Negative (NEGATIVE) Lactic Acid Level 3.1 mmol/L (0.4-2.0) H Laboratory Tests 05/04/20 11:20 Laboratory Tests 05/04/20 11:20 Vital Signs: Vital Signs Date Time Temp Pulse Resp B/P (MAP) Pulse Ox O2 Delivery O2 Flow Rate FiO2 05/04/20 13:42 86 18 112/52 (72) 95 Nasal Cannula 5.0 05/04/20 11:08 98.9 98.9 EKG: EKG: [] Heart Score: Risk Factors: Risk Factors: DM, Current or recent (<one month) smoker, HTN, HLP, family history of CAD, obesity. Risk Scores: Score 0 - 3: 2.5% MACE over next 6 weeks - Discharge Home Score 4 - 6: 20.3% MACE over next 6 weeks - Admit for Clinical Observation Score 7 - 10: 72.7% MACE over next 6 weeks - Early Invasive Strategies Radiology/Procedures: Radiology/Procedures: [] Course & Med Decision Making: Course & Med Decision Making Pertinent Labs and Imaging studies reviewed. (See chart for details) Patient is a 57-year-old male with a history of diabetes and hypertension who presents to the Emergency Room with altered mental status. On exam, patient is confused, mottled, hypoxic. At this time it is unclear what is causing the patient's altered mental status, however they do not appear to be at their baseline. Differential includes infection, electrolyte imbalance, ACS, stroke, intracranial bleed, polypharmacy, dehydration, dementia, renal failure rhabdomyolysis, congestive heart failure. Patient does not have hypo-or hyperthermia. No history was provided to suggest seizure with postictal state. Glucose is normal upon arrival. At arrival, patient is protecting their airway and does not need to be intubated. There are signs of trauma, however patient is moving all extremities and there is no obvious deformity. To evaluate the patient's altered mental status, CBC, CMP, UA, troponin, EKG, CT head, CT lumbar spine, blood cultures, lactic, ammonia, Covid test will be ordered. Upon r sureshw work-up patient has bilateral infiltrates and is requiring 5 L of nasal cannula. He is in acute kidney failure with a sodium of 119 and a BUN of 92. Potassium is 5.6. It is unclear at this time whether his infiltrates are due to pneumonia or congestive heart failure. Patient remains confused. His white blood cell count is 0.7. Patient will need to be admitted to the ICU. Nephrology will be consulted. Hematology will also be consulted. Dragon Disclaimer: Dragon Disclaimer: This electronic medical record was generated, in whole or in part, using a voice recognition dictation system. Critical Care Time Critical Care: Authorized and Performed by: Everardo Oneill MD Total critical care time: approximately 45 minutes Due to a high probability of clinically significant, life threatening deterioration, the patient required my highest level of preparedness to intervene emergently and I personally spent this critical care time directly and personally managing the patient. This critical care time included obtaining a history; examining the patient; pulse oximetry; ventilator management if necessary; ordering and review of studies; arranging urgent treatment with development of a management plan; evaluation of patient's response to treatment; frequent reassessment; discussion with patient/family; and, discussions with other providers. This critical care time was performed to assess and manage the high probability of imminent, life-threatening deterioration that could result in multi-organ failure. It was exclusive of separately billable procedures and treating other patients and teaching time. Please see MDM section and the rest of the note for further information on patient assessment and treatment. Departure Departure Impression: Primary Impression: Acute kidney failure Additional Impressions: Hyperuricemia Hyperkalemia Altered mental status Lymphopenia Respiratory failure with hypoxia Disposition: ADMITTED INPT THIS HOSP Condition: GUARDED Referrals: BUSTER LEMONS MD (PCP) Problem Qualifiers EVERARDO ONEILL MD May 04, 2020 13:44
[2020-05-04] MEDS ORDERED: NALOXONE 0.4 MG/ML VIAL. IV ONE (17:00)
[2020-05-04] MEDS ORDERED: NOREPINEPHRINE VIAL 8 MG in IV DEXTROSE 5% 250 ML IV PRN (17:00)
[2020-05-04 17:12] LABS: BASE EXCESS ABG -8 mmol/L (-3-3); HCO3 ABG 21 mmol/L (21-28); PCO2 ABG 54 mmHg (35-46); PO2 ABG 74 mmHg (65-108); SAT O2 ABG 91 % (92-99)
[2020-05-04 17:17] LABS: FIO2 ABG 50
[2020-05-04] MEDS ORDERED: ETOMIDATE 20 MG/10 ML VIAL. IV ONE ×2 (17:20→18:00)
[2020-05-04] MEDS ORDERED: PROPOFOL 0 ML IV ONE (17:20)
[2020-05-04] MEDS ORDERED: SUCCINYLCHOLINE 200 MG/10 ML VIAL. ONE ×2 (17:20→18:00)
[2020-05-04] MEDS ORDERED: ROCURONIUM 50 MG/5 ML VIAL. ONE ×2 (17:20→18:00)
[2020-05-04] MEDS ORDERED: PHENYLEPHRINE in 0.9% NACL PF 1 MG/10 ML SYRINGE. IV ONE (18:00)
[2020-05-04] MEDS ORDERED: PROPOFOL 10 MG/ML (100ML) VIAL. IV ONE (18:00)
[2020-05-04] MEDS: SODIUM BICARBONATE VIAL 150 MEQ in IV DEXTROSE 5% 1,000 ML IV SCH (18:30)
--- NOTE | 2020-05-04 18:33 | RAD ---
Study: XR CHEST 1V Indication: Intubation. OG tube placement. Comparison: 05/04/2020 at 1251 hours Findings: Endotracheal tube tip 4.5 cm above the jennifer. An enteric tube terminates beyond the inferior field o f view. Thoracic dorsal fusion construct. Redemonstrated enlargement of the cardiomediastinal silhouette. Ill-defined haziness of both lungs an d increased interstitial markings are similar to the prior noting differences in patient positioning. Impression: 1. Normally positioned endotracheal tube terminating 4.5 cm above the jennifer. Enteric tube tip is loc ated beyond the inferior field of view. 2. The cardiomediastinal silhouette is again noted to be enlarged. Similar appearance of the lungs fr om the same day comparison. Electronically signed by: ANIRUDH ARTEAGA MD (05/04/2020 6:30 PM) [facility]
[2020-05-04] MEDS: NOREPINEPHRINE VIAL 32 MG in IV DEXTROSE 5% 250 ML IV PRN (19:30)
--- NOTE | 2020-05-04 20:00 | NUR ---
Pt admitted to 102 via gurney at approx 1700. On arrival, pt completely unresponsive and snoring, does not open eyes, move extremities or withdraw from pain. ABG drawn, see results. Dr. Arechiga consulted and notified, decision to intubate patient made, see intervention. Pt also extremely hemodynamically unstable, requiring large doses of vasopressors- see IV spreadsheet. Dr. Doherty consulted, return call received- see orders. Dr. Hanna also notified of consult, pt placed in neutropenic precautions. Patient has 5 brothers, several have called unit. Oldest, Manuel ([phone])- called unit, update given- did say that patient was in the hospital for several months last year, [facility] and then [facility]- not sure of the exact reason. Will obtain records. Admission paperwork done to best of ability.
[2020-05-04 20:02] LABS: BASE EXCESS ABG -9 mmol/L (-3-3); HCO3 ABG 19 mmol/L (21-28); PCO2 ABG 53 mmHg (35-46); PO2 ABG 121 mmHg (65-108); SAT O2 ABG 98 % (92-99)
[2020-05-04 20:05] LABS: FIO2 ABG 100
[2020-05-04 22:26] LABS: CALCIUM 8.1 mg/dL (8.5-10.1); CREATININE 4.1 mg/dL (0.7-1.3); POTASSIUM 5.1 mmol/L (3.5-5.1)
[2020-05-05] VITALS (27 sets, daily range): BP systolic 83–121; BP diastolic 41–61
[2020-05-05] MEDS: SODIUM BICARBONATE VIAL 150 MEQ in IV DEXTROSE 5% 1,000 ML IV SCH ×4 (01:09→23:33)
[2020-05-05] MEDS: MIDAZOLAM 100mg/100ml NS BAG 100 ML IV PRN (05:20)
[2020-05-05 05:36] LABS: BASO # 0.1 x10^3/uL (0.0-0.2); BASO % 0 % (0-3); EOS # 0.8 x10^3/uL (0.0-0.7); EOS % 5 % (0-3); HEMATOCRIT 34.6 % (39.0-53.0); HEMOGLOBIN 11.4 g/dL (13.0-17.5); LYMPH # 0.5 x10^3/uL (1.0-4.8); LYMPH % 3 % (24-48); MEAN CORPUSCULAR HEMOGLOBIN 27 pg (25-35); MEAN CORPUSCULAR HGB CONC 33 g/dL (31-37); MEAN CORPUSCULAR VOLUME 82 fL (79-100); MONO # 0.9 x10^3/uL (0.0-1.1); MONO % 5 % (0-9); NEUT # 14.1 x10^3/uL (1.8-7.7); NEUT % 87 % (31-73); PLATELET COUNT 78 x10^3/uL (140-400); RED BLOOD COUNT 4.21 x10^6/uL (4.30-5.70); RED CELL DISTRIBUTION WIDTH 18.9 % (11.5-14.5); WHITE BLOOD COUNT 16.2 x10^3/uL (4.0-11.0)
[2020-05-05 05:57] LABS: CALCIUM 7.7 mg/dL (8.5-10.1); CREATININE 3.7 mg/dL (0.7-1.3); GFR 16.9; PHOSPHORUS 4.8 mg/dL (2.6-4.7); POTASSIUM 4.7 mmol/L (3.5-5.1)
[2020-05-05 07:04] LABS: % BANDS 9 % (0-9); % LYMPHS 6 % (24-48); % MONOS 6 % (0-10); % SEGS 79 % (35-66)
[2020-05-05 07:05] LABS: PLT ESTIMATE DECREASED (ADEQUATE)
[2020-05-05 07:06] LABS: TOXIC VACUOLATION PRESENT
[2020-05-05 07:07] LABS: TOXIC GRANULATION PRESENT
--- NOTE | 2020-05-05 07:14 | PDOC ---
Date and Time Called to intubate pt for respiratory failure. 7.5 Ettube placed with size 4 glidescope. Etomidate 16mg, Rocuronium 50. SBP 50's after intubation. Total of 800mg of phenylephrine given over 15min. RN increased Levo gtt. [place] placed L radial with use of ultrasound Current Medications Current Medications Sodium Chloride 1,000 ml @ 1,000 mls/hr 1X ONCE IV Last administered on 05/04/20at 11:32; Start 05/04/20 at 11:45; Stop 05/04/20 at 12:44; Status DC Ceftriaxone Sodium (Rocephin) 1 gm 1X ONCE IVP Last administered on 05/04/20at 11:33; Start 05/04/20 at 11:45; Stop 05/04/20 at 11:46; Status DC Norepinephrine Bitartrate 8 mg/ Dextrose 258 ml @ 35.314 mls/ hr CONT PRN IV PER PROTOCOL Last administered on 05/04/20at 17:00; Start 05/04/20 at 17:00; Stop 05/04/20 at 18:09; Status DC Naloxone HCl (Narcan) 0.4 mg 1X ONCE IV Last administered on 05/04/20at 17:00; Start 05/04/20 at 17:00; Stop 05/04/20 at 17:01; Status DC Propofol 0 ml @ As Directed STK-MED ONCE IV ; Start 05/04/20 at 17:20; Stop 05/04/20 at 17:20; Status DC Succinylcholine Chloride ([place]) 200 mg STK-MED ONCE .ROUTE ; Start 05/04/20 at 17:20; Stop 05/04/20 at 17:20; Status DC Rocuronium [place] (Zemuron) 50 mg STK-MED ONCE .ROUTE ; Start 05/04/20 at 17:20; Stop 05/04/20 at 17:21; Status DC Etomidate (A[place]ate) 20 mg STK-MED ONCE IV ; Start 05/04/20 at 17:20; Stop 05/04/20 at 17:21; Status DC Sodium Bicarbonate 150 meq/Dextrose 1,150 ml @ 200 mls/hr Q5H45M IV Last administered on 05/05/20at 06:35; Start 05/04/20 at 18:30 Fentanyl Citrate 30 ml @ 0 mls/hr CONT PRN IV SEE PROTOCOL; Start 05/04/20 at 18:15 Midazolam HCl 100 ml @ 0 mls/hr CONT PRN IV SEE PROTOCOL Last administered on 05/05/20at 05:20; Start 05/04/20 at 18:15 Norepinephrine Bitartrate 32 mg/ Dextrose 282 ml @ 9.65 mls/hr CONT PRN IV PER PROTOCOL Last administered on 05/04/20at 19:30; Start 05/04/20 at 18:15 Active Scripts Active [Fluconazole] 100 MG Tablet 200 Mg PO DAILY 10 Days Amox Tr-K Clv 875-125 Mg Tab (Amoxicillin/Potassium Clav) 1 Each Tablet 1 Tab PO BID 10 Days Reported Hydrocodone-Acetamin 5-325 mg (Hydrocodone/Acetaminophen) 1 Each Tablet 1 Each PO PRN Q6HRS PRN Diclofenac Sodium 75 Mg Tablet.dr 1 Tab PO BID Amlodipine Besylate 5 Mg Tablet 5 Mg PO DAILY Furosemide 40 Mg Tablet 1 Tab PO DAILY Lisinopril 30 Mg Tablet 1 Tab PO DAILY Actos (Pioglitazone Hcl) 30 Mg Tablet 1 Tab PO DAILY Pertinent Labs/Test Laboratory Tests Test 05/04/20 11:04 05/04/20 11:13 05/04/20 11:20 05/04/20 12:04 Glucose (Fingerstick) 171 mg/dL (70-99) Urine Collection Type Unknown Urine Color Luisa Urine Clarity Cloudy Urine pH 7.0 (<5.0-8.0) Urine Specific [place] 1.020 (1.000-1.030) Urine Protein 100 mg/dL (NEG-TRACE) Urine Glucose (UA) Negative mg/dL (NEG) Urine Ketones (Stick) Trace mg/dL (NEG) Urine Blood Large (NEG) Urine Nitrite Negative (NEG) Urine Bilirubin Small (NEG) Urine Urobilinogen Dipstick 1.0 mg/dL (0.2 mg/dL) Urine Leukocyte Esterase Large (NEG) Urine RBC 20-40 /HPF (0-2) Urine WBC >40 /HPF (0-4) Urine Squamous Epithelial Cells Few /LPF Urine Bacteria Many /HPF (0-FEW) Urine Opiates Screen Pos (NEG) Urine Methadone Screen Neg (NEG) Urine Barbiturates Neg (NEG) Urine Phencyclidine Screen Neg (NEG) Urine Amphetamine/Methamphetamine Neg (NEG) Urine Benzodiazepines Screen Neg (NEG) Urine Cocaine Screen Neg (NEG) Urine Cannabinoids Screen Neg (NEG) Urine Ethyl Alcohol Neg (NEG) White Blood Count 0.7 x10^3/uL (4.0-11.0) Red Blood Count 4.68 x10^6/uL (4.30-5.70) Hemoglobin 13.2 g/dL (13.0-17.5) Hematocrit 38.8 % (39.0-53.0) Mean Corpuscular Volume 83 fL (79-100) Mean Corpuscular Hemoglobin 28 pg (25-35) Mean Corpuscular Hemoglobin Concent 34 g/dL (31-37) Red Cell Distribution Width 19.3 % (11.5-14.5) Platelet Count 86 x10^3/uL (140-400) Neutrophils (%) (Auto) 37 % (31-73) Lymphocytes (%) (Auto) 14 % (24-48) Monocytes (%) (Auto) 49 % (0-9) Eosinophils (%) (Auto) 0 % (0-3) Basophils (%) (Auto) 0 % (0-3) Neutrophils # (Auto) 0.2 x10^3/uL (1.8-7.7) Lymphocytes # (Auto) 0.1 x10^3/uL (1.0-4.8) Monocytes # (Auto) 0.3 x10^3/uL (0.0-1.1) Eosinophils # (Auto) 0.0 x10^3/uL (0.0-0.7) Basophils # (Auto) 0.0 x10^3/uL (0.0-0.2) Segmented Neutrophils % 31 % (35-66) Band Neutrophils % 5 % (0-9) Lymphocytes % 17 % (24-48) Monocytes % 45 % (0-10) Eosinophils % 1 % (0-5) Basophils % 1 % (0-3) Toxic Granulation Marked Toxic Vacuolation Marked Platelet Estimate Decreased (ADEQUATE) Sodium Level 119 mmol/L (136-145) Potassium Level 5.6 mmol/L (3.5-5.1) Chloride Level 85 mmol/L (98-107) Carbon Dioxide Level 19 mmol/L (21-32) Anion Gap 15 (6-14) Blood Urea Nitrogen 92 mg/dL (8-26) Creatinine 3.4 mg/dL (0.7-1.3) Estimated GFR (Cockcroft-Gault) 18.6 BUN/Creatinine Ratio 27 (6-20) Glucose Level 154 mg/dL (70-99) Lactic Acid Level 3.1 mmol/L (0.4-2.0) Calcium Level 8.4 mg/dL (8.5-10.1) Total Bilirubin 1.8 mg/dL (0.2-1.0) Aspartate Amino Transf (AST/SGOT) 117 U/L (15-37) Alanine Aminotransferase (ALT/SGPT) 101 U/L (16-63) Alkaline Phosphatase 256 U/L (46-116) Ammonia < 10 mcmol/L (11-34) Creatine Kinase 1234 U/L (39-308) Troponin I Quantitative < 0.017 ng/mL (0.000-0.055) ZA-Qbq-Z-Type Natriuretic Peptide 6764 pg/mL (0-124) Total Protein 6.4 g/dL (6.4-8.2) Albumin 2.5 g/dL (3.4-5.0) Albumin/Globulin Ratio 0.6 (1.0-1.7) Lipase 361 U/L (73-393) Ethyl Alcohol Level < 10 mg/dL (0-10) O2 Saturation 94 % (92-99) Arterial Blood pH 7.33 (7.35-7.45) Arterial Blood pCO2 at Patient Temp 34 mmHg (35-46) Arterial Blood pO2 at Patient Temp 75 mmHg (65-108) Arterial Blood HCO3 18 mmol/L (21-28) Arterial Blood Base Excess -7 mmol/L (-3-3) FiO2 40%/ 5lnc Test 05/04/20 13:44 05/04/20 14:45 05/04/20 16:39 05/04/20 17:05 SARS-CoV-2 Antigen (Rapid) Negative (NEGATIVE) Lactic Acid Level 3.1 mmol/L (0.4-2.0) Glucose (Fingerstick) 120 mg/dL (70-99) O2 Saturation 91 % (92-99) Arterial Blood pH 7.20 (7.35-7.45) Arterial Blood pCO2 at Patient Temp 54 mmHg (35-46) Arterial Blood pO2 at Patient Temp 74 mmHg (65-108) Arterial Blood HCO3 21 mmol/L (21-28) Arterial Blood Base Excess -8 mmol/L (-3-3) FiO2 50 Test 05/04/20 19:38 05/04/20 22:05 05/05/20 05:25 O2 Saturation 98 % (92-99) Arterial Blood pH 7.18 (7.35-7.45) Arterial Blood pCO2 at Patient Temp 53 mmHg (35-46) Arterial Blood pO2 at Patient Temp 121 mmHg (65-108) Arterial Blood HCO3 19 mmol/L (21-28) Arterial Blood Base Excess -9 mmol/L (-3-3) FiO2 100 Sodium Level 117 mmol/L (136-145) 119 mmol/L (136-145) Potassium Level 5.1 mmol/L (3.5-5.1) 4.7 mmol/L (3.5-5.1) Chloride Level 86 mmol/L (98-107) 87 mmol/L (98-107) Carbon Dioxide Level 19 mmol/L (21-32) 22 mmol/L (21-32) Anion Gap 12 (6-14) 10 (6-14) Blood Urea Nitrogen 90 mg/dL (8-26) 94 mg/dL (8-26) Creatinine 4.1 mg/dL (0.7-1.3) 3.7 mg/dL (0.7-1.3) Estimated GFR (Cockcroft-Gault) 15.0 16.9 Glucose Level 210 mg/dL (70-99) 236 mg/dL (70-99) Calcium Level 8.1 mg/dL (8.5-10.1) 7.7 mg/dL (8.5-10.1) White Blood Count 16.2 x10^3/uL (4.0-11.0) Red Blood Count 4.21 x10^6/uL (4.30-5.70) Hemoglobin 11.4 g/dL (13.0-17.5) Hematocrit 34.6 % (39.0-53.0) Mean Corpuscular Volume 82 fL (79-100) Mean Corpuscular Hemoglobin 27 pg (25-35) Mean Corpuscular Hemoglobin Concent 33 g/dL (31-37) Red Cell Distribution Width 18.9 % (11.5-14.5) Platelet Count 78 x10^3/uL (140-400) Neutrophils (%) (Auto) 87 % (31-73) Lymphocytes (%) (Auto) 3 % (24-48) Monocytes (%) (Auto) 5 % (0-9) Eosinophils (%) (Auto) 5 % (0-3) Basophils (%) (Auto) 0 % (0-3) Neutrophils # (Auto) 14.1 x10^3/uL (1.8-7.7) Lymphocytes # (Auto) 0.5 x10^3/uL (1.0-4.8) Monocytes # (Auto) 0.9 x10^3/uL (0.0-1.1) Eosinophils # (Auto) 0.8 x10^3/uL (0.0-0.7) Basophils # (Auto) 0.1 x10^3/uL (0.0-0.2) Segmented Neutrophils % 79 % (35-66) Band Neutrophils % 9 % (0-9) Lymphocytes % 6 % (24-48) Monocytes % 6 % (0-10) Toxic Granulation Present Toxic Vacuolation Present Platelet Estimate Decreased (ADEQUATE) Large Platelets Present Phosphorus Level 4.8 mg/dL (2.6-4.7) Magnesium Level 2.0 mg/dL (1.8-2.4) Creatine Kinase 750 U/L (39-308) Laboratory Tests Test 05/04/20 11:04 05/04/20 11:13 05/04/20 11:20 05/04/20 12:04 Glucose (Fingerstick) 171 mg/dL (70-99) Urine Collection Type Unknown Urine Color Luisa Urine Clarity Cloudy Urine pH 7.0 (<5.0-8.0) Urine Specific [place] 1.020 (1.000-1.030) Urine Protein 100 mg/dL (NEG-TRACE) Urine Glucose (UA) Negative mg/dL (NEG) Urine Ketones (Stick) Trace mg/dL (NEG) Urine Blood Large (NEG) Urine Nitrite Negative (NEG) Urine Bilirubin Small (NEG) Urine Urobilinogen Dipstick 1.0 mg/dL (0.2 mg/dL) Urine Leukocyte Esterase Large (NEG) Urine RBC 20-40 /HPF (0-2) Urine WBC >40 /HPF (0-4) Urine Squamous Epithelial Cells Few /LPF Urine Bacteria Many /HPF (0-FEW) Urine Opiates Screen Pos (NEG) Urine Methadone Screen Neg (NEG) Urine Barbiturates Neg (NEG) Urine Phencyclidine Screen Neg (NEG) Urine Amphetamine/Methamphetamine Neg (NEG) Urine Benzodiazepines Screen Neg (NEG) Urine Cocaine Screen Neg (NEG) Urine Cannabinoids Screen Neg (NEG) Urine Ethyl Alcohol Neg (NEG) White Blood Count 0.7 x10^3/uL (4.0-11.0) Red Blood Count 4.68 x10^6/uL (4.30-5.70) Hemoglobin 13.2 g/dL (13.0-17.5) Hematocrit 38.8 % (39.0-53.0) Mean Corpuscular Volume 83 fL (79-100) Mean Corpuscular Hemoglobin 28 pg (25-35) Mean Corpuscular Hemoglobin Concent 34 g/dL (31-37) Red Cell Distribution Width 19.3 % (11.5-14.5) Platelet Count 86 x10^3/uL (140-400) Neutrophils (%) (Auto) 37 % (31-73) Lymphocytes (%) (Auto) 14 % (24-48) Monocytes (%) (Auto) 49 % (0-9) Eosinophils (%) (Auto) 0 % (0-3) Basophils (%) (Auto) 0 % (0-3) Neutrophils # (Auto) 0.2 x10^3/uL (1.8-7.7) Lymphocytes # (Auto) 0.1 x10^3/uL (1.0-4.8) Monocytes # (Auto) 0.3 x10^3/uL (0.0-1.1) Eosinophils # (Auto) 0.0 x10^3/uL (0.0-0.7) Basophils # (Auto) 0.0 x10^3/uL (0.0-0.2) Segmented Neutrophils % 31 % (35-66) Band Neutrophils % 5 % (0-9) Lymphocytes % 17 % (24-48) Monocytes % 45 % (0-10) Eosinophils % 1 % (0-5) Basophils % 1 % (0-3) Toxic Granulation Marked Toxic Vacuolation Marked Platelet Estimate Decreased (ADEQUATE) Sodium Level 119 mmol/L (136-145) Potassium Level 5.6 mmol/L (3.5-5.1) Chloride Level 85 mmol/L (98-107) Carbon Dioxide Level 19 mmol/L (21-32) Anion Gap 15 (6-14) Blood Urea Nitrogen 92 mg/dL (8-26) Creatinine 3.4 mg/dL (0.7-1.3) Estimated GFR (Cockcroft-Gault) 18.6 BUN/Creatinine Ratio 27 (6-20) Glucose Level 154 mg/dL (70-99) Lactic Acid Level 3.1 mmol/L (0.4-2.0) Calcium Level 8.4 mg/dL (8.5-10.1) Total Bilirubin 1.8 mg/dL (0.2-1.0) Aspartate Amino Transf (AST/SGOT) 117 U/L (15-37) Alanine Aminotransferase (ALT/SGPT) 101 U/L (16-63) Alkaline Phosphatase 256 U/L (46-116) Ammonia < 10 mcmol/L (11-34) Creatine Kinase 1234 U/L (39-308) Troponin I Quantitative < 0.017 ng/mL (0.000-0.055) HT-Zpw-M-Type Natriuretic Peptide 6764 pg/mL (0-124) Total Protein 6.4 g/dL (6.4-8.2) Albumin 2.5 g/dL (3.4-5.0) Albumin/Globulin Ratio 0.6 (1.0-1.7) Lipase 361 U/L (73-393) Ethyl Alcohol Level < 10 mg/dL (0-10) O2 Saturation 94 % (92-99) Arterial Blood pH 7.33 (7.35-7.45) Arterial Blood pCO2 at Patient Temp 34 mmHg (35-46) Arterial Blood pO2 at Patient Temp 75 mmHg (65-108) Arterial Blood HCO3 18 mmol/L (21-28) Arterial Blood Base Excess -7 mmol/L (-3-3) FiO2 40%/ 5lnc Test 05/04/20 13:44 05/04/20 14:45 05/04/20 16:39 05/04/20 17:05 SARS-CoV-2 Antigen (Rapid) Negative (NEGATIVE) Lactic Acid Level 3.1 mmol/L (0.4-2.0) Glucose (Fingerstick) 120 mg/dL (70-99) O2 Saturation 91 % (92-99) Arterial Blood pH 7.20 (7.35-7.45) Arterial Blood pCO2 at Patient Temp 54 mmHg (35-46) Arterial Blood pO2 at Patient Temp 74 mmHg (65-108) Arterial Blood HCO3 21 mmol/L (21-28) Arterial Blood Base Excess -8 mmol/L (-3-3) FiO2 50 Test 05/04/20 19:38 05/04/20 22:05 05/05/20 05:25 O2 Saturation 98 % (92-99) Arterial Blood pH 7.18 (7.35-7.45) Arterial Blood pCO2 at Patient Temp 53 mmHg (35-46) Arterial Blood pO2 at Patient Temp 121 mmHg (65-108) Arterial Blood HCO3 19 mmol/L (21-28) Arterial Blood Base Excess -9 mmol/L (-3-3) FiO2 100 Sodium Level 117 mmol/L (136-145) 119 mmol/L (136-145) Potassium Level 5.1 mmol/L (3.5-5.1) 4.7 mmol/L (3.5-5.1) Chloride Level 86 mmol/L (98-107) 87 mmol/L (98-107) Carbon Dioxide Level 19 mmol/L (21-32) 22 mmol/L (21-32) Anion Gap 12 (6-14) 10 (6-14) Blood Urea Nitrogen 90 mg/dL (8-26) 94 mg/dL (8-26) Creatinine 4.1 mg/dL (0.7-1.3) 3.7 mg/dL (0.7-1.3) Estimated GFR (Cockcroft-Gault) 15.0 16.9 Glucose Level 210 mg/dL (70-99) 236 mg/dL (70-99) Calcium Level 8.1 mg/dL (8.5-10.1) 7.7 mg/dL (8.5-10.1) White Blood Count 16.2 x10^3/uL (4.0-11.0) Red Blood Count 4.21 x10^6/uL (4.30-5.70) Hemoglobin 11.4 g/dL (13.0-17.5) Hematocrit 34.6 % (39.0-53.0) Mean Corpuscular Volume 82 fL (79-100) Mean Corpuscular Hemoglobin 27 pg (25-35) Mean Corpuscular Hemoglobin Concent 33 g/dL (31-37) Red Cell Distribution Width 18.9 % (11.5-14.5) Platelet Count 78 x10^3/uL (140-400) Neutrophils (%) (Auto) 87 % (31-73) Lymphocytes (%) (Auto) 3 % (24-48) Monocytes (%) (Auto) 5 % (0-9) Eosinophils (%) (Auto) 5 % (0-3) Basophils (%) (Auto) 0 % (0-3) Neutrophils # (Auto) 14.1 x10^3/uL (1.8-7.7) Lymphocytes # (Auto) 0.5 x10^3/uL (1.0-4.8) Monocytes # (Auto) 0.9 x10^3/uL (0.0-1.1) Eosinophils # (Auto) 0.8 x10^3/uL (0.0-0.7) Basophils # (Auto) 0.1 x10^3/uL (0.0-0.2) Segmented Neutrophils % 79 % (35-66) Band Neutrophils % 9 % (0-9) Lymphocytes % 6 % (24-48) Monocytes % 6 % (0-10) Toxic Granulation Present Toxic Vacuolation Present Platelet Estimate Decreased (ADEQUATE) Large Platelets Present Phosphorus Level 4.8 mg/dL (2.6-4.7) Magnesium Level 2.0 mg/dL (1.8-2.4) Creatine Kinase 750 U/L (39-308) LAST VITALS Vital Signs Date Time Temp Pulse Resp B/P (MAP) Pulse Ox O2 Delivery O2 Flow Rate FiO2 05/05/20 06:00 57 26 85/44 (58) 98 Ventilator 05/05/20 04:00 98.5 98.5 05/04/20 17:30 5.0 YURIALEXIS Fer JORDAN May 05, 2020 07:14
--- NOTE | 2020-05-05 07:28 | PDOC ---
Infectious Disease Note Vital Sign Vital Signs Vital Signs Date Time Temp Pulse Resp B/P (MAP) Pulse Ox O2 Delivery O2 Flow Rate FiO2 05/05/20 06:00 57 26 85/44 (58) 98 Ventilator 05/05/20 04:00 98.5 98.5 05/04/20 17:30 5.0 Labs Lab Laboratory Tests Test 05/04/20 11:04 05/04/20 11:13 05/04/20 11:20 05/04/20 12:04 Glucose (Fingerstick) 171 mg/dL (70-99) Urine Collection Type Unknown Urine Color Luisa Urine Clarity Cloudy Urine pH 7.0 (<5.0-8.0) Urine Specific [place] 1.020 (1.000-1.030) Urine Protein 100 mg/dL (NEG-TRACE) Urine Glucose (UA) Negative mg/dL (NEG) Urine Ketones (Stick) Trace mg/dL (NEG) Urine Blood Large (NEG) Urine Nitrite Negative (NEG) Urine Bilirubin Small (NEG) Urine Urobilinogen Dipstick 1.0 mg/dL (0.2 mg/dL) Urine Leukocyte Esterase Large (NEG) Urine RBC 20-40 /HPF (0-2) Urine WBC >40 /HPF (0-4) Urine Squamous Epithelial Cells Few /LPF Urine Bacteria Many /HPF (0-FEW) Urine Opiates Screen Pos (NEG) Urine Methadone Screen Neg (NEG) Urine Barbiturates Neg (NEG) Urine Phencyclidine Screen Neg (NEG) Urine Amphetamine/Methamphetamine Neg (NEG) Urine Benzodiazepines Screen Neg (NEG) Urine Cocaine Screen Neg (NEG) Urine Cannabinoids Screen Neg (NEG) Urine Ethyl Alcohol Neg (NEG) White Blood Count 0.7 x10^3/uL (4.0-11.0) Red Blood Count 4.68 x10^6/uL (4.30-5.70) Hemoglobin 13.2 g/dL (13.0-17.5) Hematocrit 38.8 % (39.0-53.0) Mean Corpuscular Volume 83 fL (79-100) Mean Corpuscular Hemoglobin 28 pg (25-35) Mean Corpuscular Hemoglobin Concent 34 g/dL (31-37) Red Cell Distribution Width 19.3 % (11.5-14.5) Platelet Count 86 x10^3/uL (140-400) Neutrophils (%) (Auto) 37 % (31-73) Lymphocytes (%) (Auto) 14 % (24-48) Monocytes (%) (Auto) 49 % (0-9) Eosinophils (%) (Auto) 0 % (0-3) Basophils (%) (Auto) 0 % (0-3) Neutrophils # (Auto) 0.2 x10^3/uL (1.8-7.7) Lymphocytes # (Auto) 0.1 x10^3/uL (1.0-4.8) Monocytes # (Auto) 0.3 x10^3/uL (0.0-1.1) Eosinophils # (Auto) 0.0 x10^3/uL (0.0-0.7) Basophils # (Auto) 0.0 x10^3/uL (0.0-0.2) Segmented Neutrophils % 31 % (35-66) Band Neutrophils % 5 % (0-9) Lymphocytes % 17 % (24-48) Monocytes % 45 % (0-10) Eosinophils % 1 % (0-5) Basophils % 1 % (0-3) Toxic Granulation Marked Toxic Vacuolation Marked Platelet Estimate Decreased (ADEQUATE) Sodium Level 119 mmol/L (136-145) Potassium Level 5.6 mmol/L (3.5-5.1) Chloride Level 85 mmol/L (98-107) Carbon Dioxide Level 19 mmol/L (21-32) Anion Gap 15 (6-14) Blood Urea Nitrogen 92 mg/dL (8-26) Creatinine 3.4 mg/dL (0.7-1.3) Estimated GFR (Cockcroft-Gault) 18.6 BUN/Creatinine Ratio 27 (6-20) Glucose Level 154 mg/dL (70-99) Lactic Acid Level 3.1 mmol/L (0.4-2.0) Calcium Level 8.4 mg/dL (8.5-10.1) Total Bilirubin 1.8 mg/dL (0.2-1.0) Aspartate Amino Transf (AST/SGOT) 117 U/L (15-37) Alanine Aminotransferase (ALT/SGPT) 101 U/L (16-63) Alkaline Phosphatase 256 U/L (46-116) Ammonia < 10 mcmol/L (11-34) Creatine Kinase 1234 U/L (39-308) Troponin I Quantitative < 0.017 ng/mL (0.000-0.055) HG-Sky-C-Type Natriuretic Peptide 6764 pg/mL (0-124) Total Protein 6.4 g/dL (6.4-8.2) Albumin 2.5 g/dL (3.4-5.0) Albumin/Globulin Ratio 0.6 (1.0-1.7) Lipase 361 U/L (73-393) Ethyl Alcohol Level < 10 mg/dL (0-10) O2 Saturation 94 % (92-99) Arterial Blood pH 7.33 (7.35-7.45) Arterial Blood pCO2 at Patient Temp 34 mmHg (35-46) Arterial Blood pO2 at Patient Temp 75 mmHg (65-108) Arterial Blood HCO3 18 mmol/L (21-28) Arterial Blood Base Excess -7 mmol/L (-3-3) FiO2 40%/ 5lnc Test 05/04/20 13:44 05/04/20 14:45 05/04/20 16:39 05/04/20 17:05 SARS-CoV-2 Antigen (Rapid) Negative (NEGATIVE) Lactic Acid Level 3.1 mmol/L (0.4-2.0) Glucose (Fingerstick) 120 mg/dL (70-99) O2 Saturation 91 % (92-99) Arterial Blood pH 7.20 (7.35-7.45) Arterial Blood pCO2 at Patient Temp 54 mmHg (35-46) Arterial Blood pO2 at Patient Temp 74 mmHg (65-108) Arterial Blood HCO3 21 mmol/L (21-28) Arterial Blood Base Excess -8 mmol/L (-3-3) FiO2 50 Test 05/04/20 19:38 05/04/20 22:05 05/05/20 05:25 O2 Saturation 98 % (92-99) Arterial Blood pH 7.18 (7.35-7.45) Arterial Blood pCO2 at Patient Temp 53 mmHg (35-46) Arterial Blood pO2 at Patient Temp 121 mmHg (65-108) Arterial Blood HCO3 19 mmol/L (21-28) Arterial Blood Base Excess -9 mmol/L (-3-3) FiO2 100 Sodium Level 117 mmol/L (136-145) 119 mmol/L (136-145) Potassium Level 5.1 mmol/L (3.5-5.1) 4.7 mmol/L (3.5-5.1) Chloride Level 86 mmol/L (98-107) 87 mmol/L (98-107) Carbon Dioxide Level 19 mmol/L (21-32) 22 mmol/L (21-32) Anion Gap 12 (6-14) 10 (6-14) Blood Urea Nitrogen 90 mg/dL (8-26) 94 mg/dL (8-26) Creatinine 4.1 mg/dL (0.7-1.3) 3.7 mg/dL (0.7-1.3) Estimated GFR (Cockcroft-Gault) 15.0 16.9 Glucose Level 210 mg/dL (70-99) 236 mg/dL (70-99) Calcium Level 8.1 mg/dL (8.5-10.1) 7.7 mg/dL (8.5-10.1) White Blood Count 16.2 x10^3/uL (4.0-11.0) Red Blood Count 4.21 x10^6/uL (4.30-5.70) Hemoglobin 11.4 g/dL (13.0-17.5) Hematocrit 34.6 % (39.0-53.0) Mean Corpuscular Volume 82 fL (79-100) Mean Corpuscular Hemoglobin 27 pg (25-35) Mean Corpuscular Hemoglobin Concent 33 g/dL (31-37) Red Cell Distribution Width 18.9 % (11.5-14.5) Platelet Count 78 x10^3/uL (140-400) Neutrophils (%) (Auto) 87 % (31-73) Lymphocytes (%) (Auto) 3 % (24-48) Monocytes (%) (Auto) 5 % (0-9) Eosinophils (%) (Auto) 5 % (0-3) Basophils (%) (Auto) 0 % (0-3) Neutrophils # (Auto) 14.1 x10^3/uL (1.8-7.7) Lymphocytes # (Auto) 0.5 x10^3/uL (1.0-4.8) Monocytes # (Auto) 0.9 x10^3/uL (0.0-1.1) Eosinophils # (Auto) 0.8 x10^3/uL (0.0-0.7) Basophils # (Auto) 0.1 x10^3/uL (0.0-0.2) Segmented Neutrophils % 79 % (35-66) Band Neutrophils % 9 % (0-9) Lymphocytes % 6 % (24-48) Monocytes % 6 % (0-10) Toxic Granulation Present Toxic Vacuolation Present Platelet Estimate Decreased (ADEQUATE) Large Platelets Present Phosphorus Level 4.8 mg/dL (2.6-4.7) Magnesium Level 2.0 mg/dL (1.8-2.4) Creatine Kinase 750 U/L (39-308) Objective Assessment pt seen, consult dictated Plan Plan of Care // CURT POST MD May 05, 2020 07:28
[2020-05-05] MEDS: NOREPINEPHRINE VIAL 32 MG in IV DEXTROSE 5% 250 ML IV PRN (07:49)
[2020-05-05 08:08] LABS: BASE EXCESS ABG -1 mmol/L (-3-3); HCO3 ABG 22 mmol/L (21-28); PCO2 ABG 32 mmHg (35-46); PO2 ABG 80 mmHg (65-108); SAT O2 ABG 96 % (92-99)
[2020-05-05] MEDS: PIPERACILLIN/TAZOBACTAM 2.25 GM in IV NORMAL SALINE 50ML 50 ML IV SCH ×4 (08:41→23:34)
[2020-05-05] MEDS ORDERED: NORMAL SALINE IV SCH (09:00)
[2020-05-05] MEDS ORDERED: DAPTOMYCIN IV SCH (09:00)
--- NOTE | 2020-05-05 09:13 | PDOC ---
Provider Note Date of Service: DATE: 05/05/20 TIME: 09:12 Provider Note dictated Justifications for Admission Other Justification MARGARET DUDLEY MD May 05, 2020 09:13
--- NOTE | 2020-05-05 09:16 | PDOC2 ---
CONSULT Date of Consult Date of Consult DATE: 05/05/20 TIME: 09:09 Reason for Consult Reason for Consult: AUGUSTINE Identification/Chief Complaint Chief Complaint Unable to Obtain, Intubated, on MV Source Source: Chart review History of Present Illness Reason for Visit: Patient is 60-year-old CM presented to the emergency room with altered mental status. According to EMS the call was for patient fell on the ground and had back pain. Patient has known chronic back pain. Upon arrival to the emergency room patient was confused. He was unable to answer any questions appropriately. He was able to tell that he thinks he fell on Monday and has been laying on the floor since that time. He deteriorated further in the ICU ,became hypoxic, less responsive and required intubation. Currently he is intubated, on vasopressor support. Past Medical History Cardiovascular: HTN GI: Constipation Psych: Addictions Musculoskeletal: low back pain, Osteoarthritis Endocrine: Diabetes Past Surgical History Past Surgical History: Other Current Problem List Problem List Problems Medical Problems: (1) Acute kidney failure Status: Acute (2) Altered mental status Status: Acute (3) Hyperkalemia Status: Acute (4) Hyperuricemia Status: Acute (5) Lymphopenia Status: Acute (6) Respiratory failure with hypoxia Status: Acute Current Medications Current Medications Current Medications Sodium Chloride 1,000 ml @ 1,000 mls/hr 1X ONCE IV Last administered on 05/04/20at 11:32; Start 05/04/20 at 11:45; Stop 05/04/20 at 12:44; Status DC Ceftriaxone Sodium (Rocephin) 1 gm 1X ONCE IVP Last administered on 05/04/20at 11:33; Start 05/04/20 at 11:45; Stop 05/04/20 at 11:46; Status DC Norepinephrine Bitartrate 8 mg/ Dextrose 258 ml @ 35.314 mls/ hr CONT PRN IV PER PROTOCOL Last administered on 05/04/20at 17:00; Start 05/04/20 at 17:00; Stop 05/04/20 at 18:09; Status DC Naloxone HCl (Narcan) 0.4 mg 1X ONCE IV Last administered on 05/04/20at 17:00; Start 05/04/20 at 17:00; Stop 05/04/20 at 17:01; Status DC Propofol 0 ml @ As Directed STK-MED ONCE IV ; Start 05/04/20 at 17:20; Stop 05/04/20 at 17:20; Status DC Succinylcholine Chloride (Anectine) 200 mg STK-MED ONCE .ROUTE ; Start 05/04/20 at 17:20; Stop 05/04/20 at 17:20; Status DC Rocuronium [place] (Zemuron) 50 mg STK-MED ONCE .ROUTE ; Start 05/04/20 at 17:20; Stop 05/04/20 at 17:21; Status DC Etomidate (Amidate) 20 mg STK-MED ONCE IV ; Start 05/04/20 at 17:20; Stop 05/04/20 at 17:21; Status DC Sodium Bicarbonate 150 meq/Dextrose 1,150 ml @ 200 mls/hr Q5H45M IV Last administered on 05/05/20at 06:35; Start 05/04/20 at 18:30 Fentanyl Citrate 30 ml @ 0 mls/hr CONT PRN IV SEE PROTOCOL; Start 05/04/20 at 18:15 Midazolam HCl 100 ml @ 0 mls/hr CONT PRN IV SEE PROTOCOL Last administered on 05/05/20at 05:20; Start 05/04/20 at 18:15 Norepinephrine Bitartrate 32 mg/ Dextrose 282 ml @ 9.65 mls/hr CONT PRN IV PER PROTOCOL Last administered on 05/05/20at 07:49; Start 05/04/20 at 18:15 Piperacillin Sod/ Tazobactam Sod 2.25 gm/Sodium Chloride 50 ml @ 100 mls/hr Q6HRS IV Last administered on 05/05/20at 08:41; Start 05/05/20 at 08:00 Daptomycin 700 mg/ Sodium Chloride 50 ml @ 100 mls/hr Q48H IV Last administered on 05/05/20at 08:42; Start 05/05/20 at 09:00 Active Scripts Active [Fluconazole] 100 MG Tablet 200 Mg PO DAILY 10 Days Amox Tr-K Clv 875-125 Mg Tab (Amoxicillin/Potassium Clav) 1 Each Tablet 1 Tab PO BID 10 Days Reported Hydrocodone-Acetamin 5-325 mg (Hydrocodone/Acetaminophen) 1 Each Tablet 1 Each PO PRN Q6HRS PRN Diclofenac Sodium 75 Mg Tablet.dr 1 Tab PO BID Amlodipine Besylate 5 Mg Tablet 5 Mg PO DAILY Furosemide 40 Mg Tablet 1 Tab PO DAILY Lisinopril 30 Mg Tablet 1 Tab PO DAILY Actos (Pioglitazone Hcl) 30 Mg Tablet 1 Tab PO DAILY Allergies Allergies: Coded Allergies: No Known Drug Allergies (Unverified , 01/31/18) ROS Review of System Unable to Obtain 2/2 Intubated, MV Physical Exam Physical Exam GENERAL: Sedated, not in any distress. HEENT: Both pupils are round and reacting. Orally intubated NECK: Supple, LUNGS: Decreased breath sounds. HEART: S1, S2 regular. No gallop or murmur. ABDOMEN: Soft, obese EXTREMITIES: No edema or cyanosis. SKIN: Unremarkable, No Rash NEUROLOGIC:sedated, orally intubated, moving all the extremities before intubation per the ENRICO Duggan present PSYCH Unable to assess Vital Signs Vital Signs Date Time Temp Pulse Resp B/P (MAP) Pulse Ox O2 Delivery O2 Flow Rate FiO2 05/05/20 09:00 57 26 90/52 (65) 99 Ventilator 05/05/20 08:00 98.7 98.7 05/04/20 17:30 5.0 Assessment & Plan AUGUSTINE - Currently Non Oliguric , ATN, Mild Rhabdo, Cr improving Continue the same management started last evening - dw nursing , Currently in IV Bicarb gtt , UOP adequate, Avoid nephrotoxins HypoNatremia - after correcting for hyperglycemia little some improvement, Monitor . If persistent switch t 3% and dc IV Bicarb Metabolic Acidosis POA - resolved with IV bicarb gtt ? UTI - defer to ID Rhabdo- minimally elevated CK , on IVF , improving Acute hypoxic respiratory failure secondary to acute encephalopathy . Bilateral interstitial infiltrates Encephalopathy. Leukopenia POA - resolved, now Leukocytosis Thrombocytopenia - defer to primary Labs Labs Laboratory Tests Test 05/04/20 11:04 05/04/20 11:13 05/04/20 11:20 05/04/20 12:04 Glucose (Fingerstick) 171 mg/dL (70-99) Urine Collection Type Unknown Urine Color Luisa Urine Clarity Cloudy Urine pH 7.0 (<5.0-8.0) Urine Specific [place] 1.020 (1.000-1.030) Urine Protein 100 mg/dL (NEG-TRACE) Urine Glucose (UA) Negative mg/dL (NEG) Urine Ketones (Stick) Trace mg/dL (NEG) Urine Blood Large (NEG) Urine Nitrite Negative (NEG) Urine Bilirubin Small (NEG) Urine Urobilinogen Dipstick 1.0 mg/dL (0.2 mg/dL) Urine Leukocyte Esterase Large (NEG) Urine RBC 20-40 /HPF (0-2) Urine WBC >40 /HPF (0-4) Urine Squamous Epithelial Cells Few /LPF Urine Bacteria Many /HPF (0-FEW) Urine Opiates Screen Pos (NEG) Urine Methadone Screen Neg (NEG) Urine Barbiturates Neg (NEG) Urine Phencyclidine Screen Neg (NEG) Urine Amphetamine/Methamphetamine Neg (NEG) Urine Benzodiazepines Screen Neg (NEG) Urine Cocaine Screen Neg (NEG) Urine Cannabinoids Screen Neg (NEG) Urine Ethyl Alcohol Neg (NEG) White Blood Count 0.7 x10^3/uL (4.0-11.0) Red Blood Count 4.68 x10^6/uL (4.30-5.70) Hemoglobin 13.2 g/dL (13.0-17.5) Hematocrit 38.8 % (39.0-53.0) Mean Corpuscular Volume 83 fL (79-100) Mean Corpuscular Hemoglobin 28 pg (25-35) Mean Corpuscular Hemoglobin Concent 34 g/dL (31-37) Red Cell Distribution Width 19.3 % (11.5-14.5) Platelet Count 86 x10^3/uL (140-400) Neutrophils (%) (Auto) 37 % (31-73) Lymphocytes (%) (Auto) 14 % (24-48) Monocytes (%) (Auto) 49 % (0-9) Eosinophils (%) (Auto) 0 % (0-3) Basophils (%) (Auto) 0 % (0-3) Neutrophils # (Auto) 0.2 x10^3/uL (1.8-7.7) Lymphocytes # (Auto) 0.1 x10^3/uL (1.0-4.8) Monocytes # (Auto) 0.3 x10^3/uL (0.0-1.1) Eosinophils # (Auto) 0.0 x10^3/uL (0.0-0.7) Basophils # (Auto) 0.0 x10^3/uL (0.0-0.2) Segmented Neutrophils % 31 % (35-66) Band Neutrophils % 5 % (0-9) Lymphocytes % 17 % (24-48) Monocytes % 45 % (0-10) Eosinophils % 1 % (0-5) Basophils % 1 % (0-3) Toxic Granulation Marked Toxic Vacuolation Marked Platelet Estimate Decreased (ADEQUATE) Sodium Level 119 mmol/L (136-145) Potassium Level 5.6 mmol/L (3.5-5.1) Chloride Level 85 mmol/L (98-107) Carbon Dioxide Level 19 mmol/L (21-32) Anion Gap 15 (6-14) Blood Urea Nitrogen 92 mg/dL (8-26) Creatinine 3.4 mg/dL (0.7-1.3) Estimated GFR (Cockcroft-Gault) 18.6 BUN/Creatinine Ratio 27 (6-20) Glucose Level 154 mg/dL (70-99) Lactic Acid Level 3.1 mmol/L (0.4-2.0) Calcium Level 8.4 mg/dL (8.5-10.1) Total Bilirubin 1.8 mg/dL (0.2-1.0) Aspartate Amino Transf (AST/SGOT) 117 U/L (15-37) Alanine Aminotransferase (ALT/SGPT) 101 U/L (16-63) Alkaline Phosphatase 256 U/L (46-116) Ammonia < 10 mcmol/L (11-34) Creatine Kinase 1234 U/L (39-308) Troponin I Quantitative < 0.017 ng/mL (0.000-0.055) CV-Gqs-Z-Type Natriuretic Peptide 6764 pg/mL (0-124) Total Protein 6.4 g/dL (6.4-8.2) Albumin 2.5 g/dL (3.4-5.0) Albumin/Globulin Ratio 0.6 (1.0-1.7) Lipase 361 U/L (73-393) Ethyl Alcohol Level < 10 mg/dL (0-10) O2 Saturation 94 % (92-99) Arterial Blood pH 7.33 (7.35-7.45) Arterial Blood pCO2 at Patient Temp 34 mmHg (35-46) Arterial Blood pO2 at Patient Temp 75 mmHg (65-108) Arterial Blood HCO3 18 mmol/L (21-28) Arterial Blood Base Excess -7 mmol/L (-3-3) FiO2 40%/ 5lnc Test 05/04/20 13:44 05/04/20 14:45 05/04/20 16:39 05/04/20 17:05 SARS-CoV-2 Antigen (Rapid) Negative (NEGATIVE) Lactic Acid Level 3.1 mmol/L (0.4-2.0) Glucose (Fingerstick) 120 mg/dL (70-99) O2 Saturation 91 % (92-99) Arterial Blood pH 7.20 (7.35-7.45) Arterial Blood pCO2 at Patient Temp 54 mmHg (35-46) Arterial Blood pO2 at Patient Temp 74 mmHg (65-108) Arterial Blood HCO3 21 mmol/L (21-28) Arterial Blood Base Excess -8 mmol/L (-3-3) FiO2 50 Test 05/04/20 19:38 05/04/20 22:05 05/05/20 05:25 O2 Saturation 98 % (92-99) Arterial Blood pH 7.18 (7.35-7.45) Arterial Blood pCO2 at Patient Temp 53 mmHg (35-46) Arterial Blood pO2 at Patient Temp 121 mmHg (65-108) Arterial Blood HCO3 19 mmol/L (21-28) Arterial Blood Base Excess -9 mmol/L (-3-3) FiO2 100 Sodium Level 117 mmol/L (136-145) 119 mmol/L (136-145) Potassium Level 5.1 mmol/L (3.5-5.1) 4.7 mmol/L (3.5-5.1) Chloride Level 86 mmol/L (98-107) 87 mmol/L (98-107) Carbon Dioxide Level 19 mmol/L (21-32) 22 mmol/L (21-32) Anion Gap 12 (6-14) 10 (6-14) Blood Urea Nitrogen 90 mg/dL (8-26) 94 mg/dL (8-26) Creatinine 4.1 mg/dL (0.7-1.3) 3.7 mg/dL (0.7-1.3) Estimated GFR (Cockcroft-Gault) 15.0 16.9 Glucose Level 210 mg/dL (70-99) 236 mg/dL (70-99) Calcium Level 8.1 mg/dL (8.5-10.1) 7.7 mg/dL (8.5-10.1) White Blood Count 16.2 x10^3/uL (4.0-11.0) Red Blood Count 4.21 x10^6/uL (4.30-5.70) Hemoglobin 11.4 g/dL (13.0-17.5) Hematocrit 34.6 % (39.0-53.0) Mean Corpuscular Volume 82 fL (79-100) Mean Corpuscular Hemoglobin 27 pg (25-35) Mean Corpuscular Hemoglobin Concent 33 g/dL (31-37) Red Cell Distribution Width 18.9 % (11.5-14.5) Platelet Count 78 x10^3/uL (140-400) Neutrophils (%) (Auto) 87 % (31-73) Lymphocytes (%) (Auto) 3 % (24-48) Monocytes (%) (Auto) 5 % (0-9) Eosinophils (%) (Auto) 5 % (0-3) Basophils (%) (Auto) 0 % (0-3) Neutrophils # (Auto) 14.1 x10^3/uL (1.8-7.7) Lymphocytes # (Auto) 0.5 x10^3/uL (1.0-4.8) Monocytes # (Auto) 0.9 x10^3/uL (0.0-1.1) Eosinophils # (Auto) 0.8 x10^3/uL (0.0-0.7) Basophils # (Auto) 0.1 x10^3/uL (0.0-0.2) Segmented Neutrophils % 79 % (35-66) Band Neutrophils % 9 % (0-9) Lymphocytes % 6 % (24-48) Monocytes % 6 % (0-10) Toxic Granulation Present Toxic Vacuolation Present Platelet Estimate Decreased (ADEQUATE) Large Platelets Present Phosphorus Level 4.8 mg/dL (2.6-4.7) Magnesium Level 2.0 mg/dL (1.8-2.4) Creatine Kinase 750 U/L (39-308) Laboratory Tests Test 05/04/20 11:04 05/04/20 11:13 05/04/20 11:20 05/04/20 12:04 Glucose (Fingerstick) 171 mg/dL (70-99) Urine Collection Type Unknown Urine Color Luisa Urine Clarity Cloudy Urine pH 7.0 (<5.0-8.0) Urine Specific [place] 1.020 (1.000-1.030) Urine Protein 100 mg/dL (NEG-TRACE) Urine Glucose (UA) Negative mg/dL (NEG) Urine Ketones (Stick) Trace mg/dL (NEG) Urine Blood Large (NEG) Urine Nitrite Negative (NEG) Urine Bilirubin Small (NEG) Urine Urobilinogen Dipstick 1.0 mg/dL (0.2 mg/dL) Urine Leukocyte Esterase Large (NEG) Urine RBC 20-40 /HPF (0-2) Urine WBC >40 /HPF (0-4) Urine Squamous Epithelial Cells Few /LPF Urine Bacteria Many /HPF (0-FEW) Urine Opiates Screen Pos (NEG) Urine Methadone Screen Neg (NEG) Urine Barbiturates Neg (NEG) Urine Phencyclidine Screen Neg (NEG) Urine Amphetamine/Methamphetamine Neg (NEG) Urine Benzodiazepines Screen Neg (NEG) Urine Cocaine Screen Neg (NEG) Urine Cannabinoids Screen Neg (NEG) Urine Ethyl Alcohol Neg (NEG) White Blood Count 0.7 x10^3/uL (4.0-11.0) Red Blood Count 4.68 x10^6/uL (4.30-5.70) Hemoglobin 13.2 g/dL (13.0-17.5) Hematocrit 38.8 % (39.0-53.0) Mean Corpuscular Volume 83 fL (79-100) Mean Corpuscular Hemoglobin 28 pg (25-35) Mean Corpuscular Hemoglobin Concent 34 g/dL (31-37) Red Cell Distribution Width 19.3 % (11.5-14.5) Platelet Count 86 x10^3/uL (140-400) Neutrophils (%) (Auto) 37 % (31-73) Lymphocytes (%) (Auto) 14 % (24-48) Monocytes (%) (Auto) 49 % (0-9) Eosinophils (%) (Auto) 0 % (0-3) Basophils (%) (Auto) 0 % (0-3) Neutrophils # (Auto) 0.2 x10^3/uL (1.8-7.7) Lymphocytes # (Auto) 0.1 x10^3/uL (1.0-4.8) Monocytes # (Auto) 0.3 x10^3/uL (0.0-1.1) Eosinophils # (Auto) 0.0 x10^3/uL (0.0-0.7) Basophils # (Auto) 0.0 x10^3/uL (0.0-0.2) Segmented Neutrophils % 31 % (35-66) Band Neutrophils % 5 % (0-9) Lymphocytes % 17 % (24-48) Monocytes % 45 % (0-10) Eosinophils % 1 % (0-5) Basophils % 1 % (0-3) Toxic Granulation Marked Toxic Vacuolation Marked Platelet Estimate Decreased (ADEQUATE) Sodium Level 119 mmol/L (136-145) Potassium Level 5.6 mmol/L (3.5-5.1) Chloride Level 85 mmol/L (98-107) Carbon Dioxide Level 19 mmol/L (21-32) Anion Gap 15 (6-14) Blood Urea Nitrogen 92 mg/dL (8-26) Creatinine 3.4 mg/dL (0.7-1.3) Estimated GFR (Cockcroft-Gault) 18.6 BUN/Creatinine Ratio 27 (6-20) Glucose Level 154 mg/dL (70-99) Lactic Acid Level 3.1 mmol/L (0.4-2.0) Calcium Level 8.4 mg/dL (8.5-10.1) Total Bilirubin 1.8 mg/dL (0.2-1.0) Aspartate Amino Transf (AST/SGOT) 117 U/L (15-37) Alanine Aminotransferase (ALT/SGPT) 101 U/L (16-63) Alkaline Phosphatase 256 U/L (46-116) Ammonia < 10 mcmol/L (11-34) Creatine Kinase 1234 U/L (39-308) Troponin I Quantitative < 0.017 ng/mL (0.000-0.055) [place]-Naq-C-Type Natriuretic Peptide 6764 pg/mL (0-124) Total Protein 6.4 g/dL (6.4-8.2) Albumin 2.5 g/dL (3.4-5.0) Albumin/Globulin Ratio 0.6 (1.0-1.7) Lipase 361 U/L (73-393) Ethyl Alcohol Level < 10 mg/dL (0-10) O2 Saturation 94 % (92-99) Arterial Blood pH 7.33 (7.35-7.45) Arterial Blood pCO2 at Patient Temp 34 mmHg (35-46) Arterial Blood pO2 at Patient Temp 75 mmHg (65-108) Arterial Blood HCO3 18 mmol/L (21-28) Arterial Blood Base Excess -7 mmol/L (-3-3) FiO2 40%/ 5lnc Test 05/04/20 13:44 05/04/20 14:45 05/04/20 16:39 05/04/20 17:05 SARS-CoV-2 Antigen (Rapid) Negative (NEGATIVE) Lactic Acid Level 3.1 mmol/L (0.4-2.0) Glucose (Fingerstick) 120 mg/dL (70-99) O2 Saturation 91 % (92-99) Arterial Blood pH 7.20 (7.35-7.45) Arterial Blood pCO2 at Patient Temp 54 mmHg (35-46) Arterial Blood pO2 at Patient Temp 74 mmHg (65-108) Arterial Blood HCO3 21 mmol/L (21-28) Arterial Blood Base Excess -8 mmol/L (-3-3) FiO2 50 Test 05/04/20 19:38 05/04/20 22:05 05/05/20 05:25 O2 Saturation 98 % (92-99) Arterial Blood pH 7.18 (7.35-7.45) Arterial Blood pCO2 at Patient Temp 53 mmHg (35-46) Arterial Blood pO2 at Patient Temp 121 mmHg (65-108) Arterial Blood HCO3 19 mmol/L (21-28) Arterial Blood Base Excess -9 mmol/L (-3-3) FiO2 100 Sodium Level 117 mmol/L (136-145) 119 mmol/L (136-145) Potassium Level 5.1 mmol/L (3.5-5.1) 4.7 mmol/L (3.5-5.1) Chloride Level 86 mmol/L (98-107) 87 mmol/L (98-107) Carbon Dioxide Level 19 mmol/L (21-32) 22 mmol/L (21-32) Anion Gap 12 (6-14) 10 (6-14) Blood Urea Nitrogen 90 mg/dL (8-26) 94 mg/dL (8-26) Creatinine 4.1 mg/dL (0.7-1.3) 3.7 mg/dL (0.7-1.3) Estimated GFR (Cockcroft-Gault) 15.0 16.9 Glucose Level 210 mg/dL (70-99) 236 mg/dL (70-99) Calcium Level 8.1 mg/dL (8.5-10.1) 7.7 mg/dL (8.5-10.1) White Blood Count 16.2 x10^3/uL (4.0-11.0) Red Blood Count 4.21 x10^6/uL (4.30-5.70) Hemoglobin 11.4 g/dL (13.0-17.5) Hematocrit 34.6 % (39.0-53.0) Mean Corpuscular Volume 82 fL (79-100) Mean Corpuscular Hemoglobin 27 pg (25-35) Mean Corpuscular Hemoglobin Concent 33 g/dL (31-37) Red Cell Distribution Width 18.9 % (11.5-14.5) Platelet Count 78 x10^3/uL (140-400) Neutrophils (%) (Auto) 87 % (31-73) Lymphocytes (%) (Auto) 3 % (24-48) Monocytes (%) (Auto) 5 % (0-9) Eosinophils (%) (Auto) 5 % (0-3) Basophils (%) (Auto) 0 % (0-3) Neutrophils # (Auto) 14.1 x10^3/uL (1.8-7.7) Lymphocytes # (Auto) 0.5 x10^3/uL (1.0-4.8) Monocytes # (Auto) 0.9 x10^3/uL (0.0-1.1) Eosinophils # (Auto) 0.8 x10^3/uL (0.0-0.7) Basophils # (Auto) 0.1 x10^3/uL (0.0-0.2) Segmented Neutrophils % 79 % (35-66) Band Neutrophils % 9 % (0-9) Lymphocytes % 6 % (24-48) Monocytes % 6 % (0-10) Toxic Granulation Present Toxic Vacuolation Present Platelet Estimate Decreased (ADEQUATE) Large Platelets Present Phosphorus Level 4.8 mg/dL (2.6-4.7) Magnesium Level 2.0 mg/dL (1.8-2.4) Creatine Kinase 750 U/L (39-308) Review All relevant outside records, renal labs, imaging studies, telemetry/EKG's were reviewed. Images Images XR CHEST 1V 05/04/2020 12:59 PM INDICATION: Shortness of breath, low blood cell count COMPARISON: None available TECHNIQUE: Portable frontal view of the chest is provided. FINDINGS: The cardiomediastinal silhouette is borderline enlarged. Mild pulmonary vascular congestion. No pleural effusions or pneumothorax. Fusion hardware identified within the mid thoracic spine. IMPRESSION: Constellation of findings suggestive of congestive heart failure. Interstitial pneumonitis may have similar appearance. Examination: CT lumbar spine without contrast HISTORY: History of fall, confusion COMPARISON: MRI from 03/18/2019 TECHNIQUE: Axial CT images of the lumbar spine was performed without contrast. Coronal and sagittal reformats are performed Exposure: One or more of the following individualized dose reduction techniques were utilized for this examination: 1. Automated exposure control 2. Adjustment of the mA and/or kV according to patient size 3. Use of iterative reconstruction technique FINDINGS: Moderate compression changes of T12, L1, L2, L3, L4, L5 vertebral level identified with lucency identified in the L1 vertebral body with comminution. Moderate multilevel disc bulge identified in the lumbar spine likely degenerative changes. Mild bibasilar lung atelectasis. Moderate aortic atherosclerosis. IMPRESSION: 1. Lucency identified in the L1 vertebral body with comminution could be subacute or acute fracture. Recommend MRI for further evaluation. 2. Moderate compression changes of the lumbar vertebral bodies likely chronic. LEYDI MOSLEY MD May 05, 2020 09:16
--- NOTE | 2020-05-05 09:42 | CONS ---
DATE OF CONSULTATION: 05/05/2020 REQUESTING PHYSICIAN: Nitin Deleon MD REASON FOR CONSULTATION: Possible sepsis. HISTORY OF PRESENT ILLNESS: This is a 60-year-old gentleman who has multiple medical problems including obesity, who fell on the ground and had back pain. The patient was not able to get up and the patient was confused, somehow ambulance was called, either by him or the neighbor and the patient was brought in. The patient was okay until he was in ICU, then he further deteriorated, became hypoxic, less responsive and required intubation. The patient is currently orally intubated, on vasopressor support. The patient also was found to have acute kidney injury, hyponatremia. He came in with white count of 0.7, elevated liver function tests, lactic acid 3.1, abnormal urinalysis. His lumbar spine CT was unremarkable. Head CT was unremarkable. A chest x-ray is not showing any acute changes. No nausea, vomiting, diarrhea or fever noted here. PAST MEDICAL HISTORY: Positive for hypertension, hyperlipidemia, obesity, congestive heart failure, osteoarthritis, has had knee replacement. SOCIAL HISTORY: Positive alcohol use. Positive for smoking. No drug use. ALLERGIES: No known drug allergies. CURRENT MEDICATIONS: Reviewed. The patient received 1 dose of Rocephin. REVIEW OF SYSTEMS: As per HPI, all other systems reviewed are negative. PHYSICAL EXAMINATION: GENERAL: Sedated, orally intubated gentleman, not in any distress. VITAL SIGNS: Temperature 98.5, pulse 57, respirations 26, blood pressure 85/44. HEENT: Both pupils are round and reacting. No conjunctival lesion. Orally intubated, unable to see the mouth. NECK: Supple, no JVP, no lymphadenopathy. LUNGS: Decreased breath sounds. HEART: S1, S2 regular. No gallop or murmur. ABDOMEN: Soft, nontender, no organomegaly. EXTREMITIES: No edema or cyanosis. SKIN: Unremarkable. NEUROLOGIC: The patient is sedated, orally intubated, unable to receptionist clerk, although he was moving all the extremities before intubation as per the RN. LABORATORY DATA: White count is 0.7 on admission, today is 16.2; platelets are 86,000. BUN and creatinine is 92 and 3.4, was normal in July of last year, at least in our records. Lactic acid 3.1. AST 117, ALT 101. Total bilirubin 1.8. CK is 1234. Drug screen is negative. Urinalysis showed more than 40 wbc's and 20-40 rbc. COVID rapid antigen negative. PCR is pending. Chest x-ray, CT all that as I mentioned in the HPI. IMPRESSION: 1. Encephalopathy. 2. Leukopenia, rule out sepsis. 3. Respiratory failure. 4. Hyponatremia. 5. Acute kidney injury. 6. Circulatory failure. 7. Obesity. 8. COVID patient under investigation. RECOMMENDATIONS: 1. Continue supportive care. 2. Hydration. 3. Initiate daptomycin and Zosyn. 4. We will follow the blood cultures and also obtain urine culture, supportive care and we will continue to follow. Thank you very much, Dr. Deleon, for giving me the opportunity to participate in this patient's care. CURT POST MD DR: LEOLA/helene JOB#: [id number] / [id number]
--- NOTE | 2020-05-05 09:44 | PDOC2 ---
NEUROLOGY CONSULT Date of Service DOS: DATE: 05/05/20 TIME: 09:31 Reason for Consult Reason for Consult: Altered mental status Referring Physician Referring Physician: Dr. Faith Source Source: Chart review History of Present Illness History of Present Illness The patient is a 60-year-old right-handed male who presented to the emergency department yesterday with altered mental status. We do not know who called emergency medical services, but he was found on the ground with back pain. Patient was confused in the emergency department. He then developed respiratory failure and has been found to be in renal failure. He is sedated on the ventilator but did stir quite a bit for the nurse she says when she relaxed the sedation. We do not do not know of any history of stroke, seizure, or injury. I last saw him in July of last year for chronic back pain, he did have a vertebroplasty in March 2019. 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, vertebroplasty) Family History Family History: Other (dementia) Social History Social History Single, disabled, thanks applied of alcohol a day, smokes a pack of cigarettes per day Current Medications Current Medications Current Medications Sodium Chloride 1,000 ml @ 1,000 mls/hr 1X ONCE IV Last administered on 05/04/20at 11:32; Start 05/04/20 at 11:45; Stop 05/04/20 at 12:44; Status DC Ceftriaxone Sodium (Rocephin) 1 gm 1X ONCE IVP Last administered on 05/04/20at 11:33; Start 05/04/20 at 11:45; Stop 05/04/20 at 11:46; Status DC Norepinephrine Bitartrate 8 mg/ Dextrose 258 ml @ 35.314 mls/ hr CONT PRN IV PER PROTOCOL Last administered on 05/04/20at 17:00; Start 05/04/20 at 17:00; Stop 05/04/20 at 18:09; Status DC Naloxone HCl (Narcan) 0.4 mg 1X ONCE IV Last administered on 05/04/20at 17:00; Start 05/04/20 at 17:00; Stop 05/04/20 at 17:01; Status DC Propofol 0 ml @ As Directed STK-MED ONCE IV ; Start 05/04/20 at 17:20; Stop 05/04/20 at 17:20; Status DC Succinylcholine Chloride (Anectine) 200 mg STK-MED ONCE .ROUTE ; Start 05/04/20 at 17:20; Stop 05/04/20 at 17:20; Status DC Rocuronium [place] (Zemuron) 50 mg STK-MED ONCE .ROUTE ; Start 05/04/20 at 17:20; Stop 05/04/20 at 17:21; Status DC Etomidate (Amidate) 20 mg STK-MED ONCE IV ; Start 05/04/20 at 17:20; Stop 05/04/20 at 17:21; Status DC Sodium Bicarbonate 150 meq/Dextrose 1,150 ml @ 200 mls/hr Q5H45M IV Last administered on 05/05/20at 06:35; Start 05/04/20 at 18:30 Fentanyl Citrate 30 ml @ 0 mls/hr CONT PRN IV SEE PROTOCOL; Start 05/04/20 at 18:15 Midazolam HCl 100 ml @ 0 mls/hr CONT PRN IV SEE PROTOCOL Last administered on 05/05/20at 05:20; Start 05/04/20 at 18:15 Norepinephrine Bitartrate 32 mg/ Dextrose 282 ml @ 9.65 mls/hr CONT PRN IV PER PROTOCOL Last administered on 05/05/20at 07:49; Start 05/04/20 at 18:15 Piperacillin Sod/ Tazobactam Sod 2.25 gm/Sodium Chloride 50 ml @ 100 mls/hr Q6HRS IV Last administered on 05/05/20at 08:41; Start 05/05/20 at 08:00 Daptomycin 700 mg/ Sodium Chloride 50 ml @ 100 mls/hr Q48H IV Last administered on 05/05/20at 08:42; Start 05/05/20 at 09:00 Insulin Glargine (Lantus Syringe) 20 unit DAILY10 SQ ; Start 05/05/20 at 10:00 Insulin Human Lispro (HumaLOG) 0-7 UNITS TIDWMEALS SQ ; Start 05/05/20 at 12:00 Dextrose (Dextrose 50%-Water Syringe) 12.5 gm PRN Q15MIN PRN IV SEE COMMENTS; Start 05/05/20 at 09:15 Active Scripts Active [Fluconazole] 100 MG Tablet 200 Mg PO DAILY 10 Days Amox Tr-K Clv 875-125 Mg Tab (Amoxicillin/Potassium Clav) 1 Each Tablet 1 Tab PO BID 10 Days Reported Hydrocodone-Acetamin 5-325 mg (Hydrocodone/Acetaminophen) 1 Each Tablet 1 Each PO PRN Q6HRS PRN Diclofenac Sodium 75 Mg Tablet.dr 1 Tab PO BID Amlodipine Besylate 5 Mg Tablet 5 Mg PO DAILY Furosemide 40 Mg Tablet 1 Tab PO DAILY Lisinopril 30 Mg Tablet 1 Tab PO DAILY Actos (Pioglitazone Hcl) 30 Mg Tablet 1 Tab PO DAILY Allergies Allergies: Coded Allergies: No Known Drug Allergies (Unverified , 01/31/18) ROS Review of System Negative for fever, chills, weight loss, shortness of breath, chest pain, indigestion, hematochezia, melena, and dysuria. Full 14-point review of systems is negative. Physical Exam Physical Examination General: Well-developed, well-nourished white male in no acute distress HEENT: Normocephalic andatraumatic. Temporal arteriespulsatiler. Neck: Supple without bruit, no meningismus Back: Some mid thoracic tenderness, no obvious deformity Musculoskeletal: Stability:see neurologic. Gait exam:see neurologic. Tone:see neurologic.Strength:see neurologic.Legs: edematous, erythematous Neurological: Mental Status:orientation, memory, attention span/concentration, language, fund of knowledge: Intubated and sedated. Cranial Nerves:Pupils equal and reactive to light, extraocular movements areintact. There is no facial asymmetry. Vestibulo-ocular reflex is intact. All other cranial related problems are negative except as mentioned before.Reflexes:0+ and symmetric with flexor plantar responses. Motor:Withdraws slightly to pain. Coordinationand gait:not tested. Sensory:Not cooperative. Vitals VITALS Vital Signs Date Time Temp Pulse Resp B/P (MAP) Pulse Ox O2 Delivery O2 Flow Rate FiO2 05/05/20 09:00 57 26 90/52 (65) 99 Ventilator 05/05/20 08:00 98.7 98.7 05/04/20 17:30 5.0 Labs Labs Laboratory Tests Test 05/04/20 11:04 05/04/20 11:13 05/04/20 11:20 05/04/20 12:04 Glucose (Fingerstick) 171 mg/dL (70-99) Urine Collection Type Unknown Urine Color Luisa Urine Clarity Cloudy Urine pH 7.0 (<5.0-8.0) Urine Specific [place] 1.020 (1.000-1.030) Urine Protein 100 mg/dL (NEG-TRACE) Urine Glucose (UA) Negative mg/dL (NEG) Urine Ketones (Stick) Trace mg/dL (NEG) Urine Blood Large (NEG) Urine Nitrite Negative (NEG) Urine Bilirubin Small (NEG) Urine Urobilinogen Dipstick 1.0 mg/dL (0.2 mg/dL) Urine Leukocyte Esterase Large (NEG) Urine RBC 20-40 /HPF (0-2) Urine WBC >40 /HPF (0-4) Urine Squamous Epithelial Cells Few /LPF Urine Bacteria Many /HPF (0-FEW) Urine Opiates Screen Pos (NEG) Urine Methadone Screen Neg (NEG) Urine Barbiturates Neg (NEG) Urine Phencyclidine Screen Neg (NEG) Urine Amphetamine/Methamphetamine Neg (NEG) Urine Benzodiazepines Screen Neg (NEG) Urine Cocaine Screen Neg (NEG) Urine Cannabinoids Screen Neg (NEG) Urine Ethyl Alcohol Neg (NEG) White Blood Count 0.7 x10^3/uL (4.0-11.0) Red Blood Count 4.68 x10^6/uL (4.30-5.70) Hemoglobin 13.2 g/dL (13.0-17.5) Hematocrit 38.8 % (39.0-53.0) Mean Corpuscular Volume 83 fL (79-100) Mean Corpuscular Hemoglobin 28 pg (25-35) Mean Corpuscular Hemoglobin Concent 34 g/dL (31-37) Red Cell Distribution Width 19.3 % (11.5-14.5) Platelet Count 86 x10^3/uL (140-400) Neutrophils (%) (Auto) 37 % (31-73) Lymphocytes (%) (Auto) 14 % (24-48) Monocytes (%) (Auto) 49 % (0-9) Eosinophils (%) (Auto) 0 % (0-3) Basophils (%) (Auto) 0 % (0-3) Neutrophils # (Auto) 0.2 x10^3/uL (1.8-7.7) Lymphocytes # (Auto) 0.1 x10^3/uL (1.0-4.8) Monocytes # (Auto) 0.3 x10^3/uL (0.0-1.1) Eosinophils # (Auto) 0.0 x10^3/uL (0.0-0.7) Basophils # (Auto) 0.0 x10^3/uL (0.0-0.2) Segmented Neutrophils % 31 % (35-66) Band Neutrophils % 5 % (0-9) Lymphocytes % 17 % (24-48) Monocytes % 45 % (0-10) Eosinophils % 1 % (0-5) Basophils % 1 % (0-3) Toxic Granulation Marked Toxic Vacuolation Marked Platelet Estimate Decreased (ADEQUATE) Sodium Level 119 mmol/L (136-145) Potassium Level 5.6 mmol/L (3.5-5.1) Chloride Level 85 mmol/L (98-107) Carbon Dioxide Level 19 mmol/L (21-32) Anion Gap 15 (6-14) Blood Urea Nitrogen 92 mg/dL (8-26) Creatinine 3.4 mg/dL (0.7-1.3) Estimated GFR (Cockcroft-Gault) 18.6 BUN/Creatinine Ratio 27 (6-20) Glucose Level 154 mg/dL (70-99) Lactic Acid Level 3.1 mmol/L (0.4-2.0) Calcium Level 8.4 mg/dL (8.5-10.1) Total Bilirubin 1.8 mg/dL (0.2-1.0) Aspartate Amino Transf (AST/SGOT) 117 U/L (15-37) Alanine Aminotransferase (ALT/SGPT) 101 U/L (16-63) Alkaline Phosphatase 256 U/L (46-116) Ammonia < 10 mcmol/L (11-34) Creatine Kinase 1234 U/L (39-308) Troponin I Quantitative < 0.017 ng/mL (0.000-0.055) RA-Kfz-[id number]-Type Natriuretic Peptide 6764 pg/mL (0-124) Total Protein 6.4 g/dL (6.4-8.2) Albumin 2.5 g/dL (3.4-5.0) Albumin/Globulin Ratio 0.6 (1.0-1.7) Lipase 361 U/L (73-393) Ethyl Alcohol Level < 10 mg/dL (0-10) O2 Saturation 94 % (92-99) Arterial Blood pH 7.33 (7.35-7.45) Arterial Blood pCO2 at Patient Temp 34 mmHg (35-46) Arterial Blood pO2 at Patient Temp 75 mmHg (65-108) Arterial Blood HCO3 18 mmol/L (21-28) Arterial Blood Base Excess -7 mmol/L (-3-3) FiO2 40%/ 5lnc Test 05/04/20 13:44 05/04/20 14:45 05/04/20 16:39 05/04/20 17:05 SARS-CoV-2 Antigen (Rapid) Negative (NEGATIVE) Lactic Acid Level 3.1 mmol/L (0.4-2.0) Glucose (Fingerstick) 120 mg/dL (70-99) O2 Saturation 91 % (92-99) Arterial Blood pH 7.20 (7.35-7.45) Arterial Blood pCO2 at Patient Temp 54 mmHg (35-46) Arterial Blood pO2 at Patient Temp 74 mmHg (65-108) Arterial Blood HCO3 21 mmol/L (21-28) Arterial Blood Base Excess -8 mmol/L (-3-3) FiO2 50 Test 05/04/20 19:38 05/04/20 22:05 05/05/20 05:25 O2 Saturation 98 % (92-99) Arterial Blood pH 7.18 (7.35-7.45) Arterial Blood pCO2 at Patient Temp 53 mmHg (35-46) Arterial Blood pO2 at Patient Temp 121 mmHg (65-108) Arterial Blood HCO3 19 mmol/L (21-28) Arterial Blood Base Excess -9 mmol/L (-3-3) FiO2 100 Sodium Level 117 mmol/L (136-145) 119 mmol/L (136-145) Potassium Level 5.1 mmol/L (3.5-5.1) 4.7 mmol/L (3.5-5.1) Chloride Level 86 mmol/L (98-107) 87 mmol/L (98-107) Carbon Dioxide Level 19 mmol/L (21-32) 22 mmol/L (21-32) Anion Gap 12 (6-14) 10 (6-14) Blood Urea Nitrogen 90 mg/dL (8-26) 94 mg/dL (8-26) Creatinine 4.1 mg/dL (0.7-1.3) 3.7 mg/dL (0.7-1.3) Estimated GFR (Cockcroft-Gault) 15.0 16.9 Glucose Level 210 mg/dL (70-99) 236 mg/dL (70-99) Calcium Level 8.1 mg/dL (8.5-10.1) 7.7 mg/dL (8.5-10.1) White Blood Count 16.2 x10^3/uL (4.0-11.0) Red Blood Count 4.21 x10^6/uL (4.30-5.70) Hemoglobin 11.4 g/dL (13.0-17.5) Hematocrit 34.6 % (39.0-53.0) Mean Corpuscular Volume 82 fL (79-100) Mean Corpuscular Hemoglobin 27 pg (25-35) Mean Corpuscular Hemoglobin Concent 33 g/dL (31-37) Red Cell Distribution Width 18.9 % (11.5-14.5) Platelet Count 78 x10^3/uL (140-400) Neutrophils (%) (Auto) 87 % (31-73) Lymphocytes (%) (Auto) 3 % (24-48) Monocytes (%) (Auto) 5 % (0-9) Eosinophils (%) (Auto) 5 % (0-3) Basophils (%) (Auto) 0 % (0-3) Neutrophils # (Auto) 14.1 x10^3/uL (1.8-7.7) Lymphocytes # (Auto) 0.5 x10^3/uL (1.0-4.8) Monocytes # (Auto) 0.9 x10^3/uL (0.0-1.1) Eosinophils # (Auto) 0.8 x10^3/uL (0.0-0.7) Basophils # (Auto) 0.1 x10^3/uL (0.0-0.2) Segmented Neutrophils % 79 % (35-66) Band Neutrophils % 9 % (0-9) Lymphocytes % 6 % (24-48) Monocytes % 6 % (0-10) Toxic Granulation Present Toxic Vacuolation Present Platelet Estimate Decreased (ADEQUATE) Large Platelets Present Phosphorus Level 4.8 mg/dL (2.6-4.7) Magnesium Level 2.0 mg/dL (1.8-2.4) Creatine Kinase 750 U/L (39-308) Laboratory Tests Test 05/04/20 11:04 05/04/20 11:13 05/04/20 11:20 05/04/20 12:04 Glucose (Fingerstick) 171 mg/dL (70-99) Urine Collection Type Unknown Urine Color Luisa Urine Clarity Cloudy Urine pH 7.0 (<5.0-8.0) Urine Specific [place] 1.020 (1.000-1.030) Urine Protein 100 mg/dL (NEG-TRACE) Urine Glucose (UA) Negative mg/dL (NEG) Urine Ketones (Stick) Trace mg/dL (NEG) Urine Blood Large (NEG) Urine Nitrite Negative (NEG) Urine Bilirubin Small (NEG) Urine Urobilinogen Dipstick 1.0 mg/dL (0.2 mg/dL) Urine Leukocyte Esterase Large (NEG) Urine RBC 20-40 /HPF (0-2) Urine WBC >40 /HPF (0-4) Urine Squamous Epithelial Cells Few /LPF Urine Bacteria Many /HPF (0-FEW) Urine Opiates Screen Pos (NEG) Urine Methadone Screen Neg (NEG) Urine Barbiturates Neg (NEG) Urine Phencyclidine Screen Neg (NEG) Urine Amphetamine/Methamphetamine Neg (NEG) Urine Benzodiazepines Screen Neg (NEG) Urine Cocaine Screen Neg (NEG) Urine Cannabinoids Screen Neg (NEG) Urine Ethyl Alcohol Neg (NEG) White Blood Count 0.7 x10^3/uL (4.0-11.0) Red Blood Count 4.68 x10^6/uL (4.30-5.70) Hemoglobin 13.2 g/dL (13.0-17.5) Hematocrit 38.8 % (39.0-53.0) Mean Corpuscular Volume 83 fL (79-100) Mean Corpuscular Hemoglobin 28 pg (25-35) Mean Corpuscular Hemoglobin Concent 34 g/dL (31-37) Red Cell Distribution Width 19.3 % (11.5-14.5) Platelet Count 86 x10^3/uL (140-400) Neutrophils (%) (Auto) 37 % (31-73) Lymphocytes (%) (Auto) 14 % (24-48) Monocytes (%) (Auto) 49 % (0-9) Eosinophils (%) (Auto) 0 % (0-3) Basophils (%) (Auto) 0 % (0-3) Neutrophils # (Auto) 0.2 x10^3/uL (1.8-7.7) Lymphocytes # (Auto) 0.1 x10^3/uL (1.0-4.8) Monocytes # (Auto) 0.3 x10^3/uL (0.0-1.1) Eosinophils # (Auto) 0.0 x10^3/uL (0.0-0.7) Basophils # (Auto) 0.0 x10^3/uL (0.0-0.2) Segmented Neutrophils % 31 % (35-66) Band Neutrophils % 5 % (0-9) Lymphocytes % 17 % (24-48) Monocytes % 45 % (0-10) Eosinophils % 1 % (0-5) Basophils % 1 % (0-3) Toxic Granulation Marked Toxic Vacuolation Marked Platelet Estimate Decreased (ADEQUATE) Sodium Level 119 mmol/L (136-145) Potassium Level 5.6 mmol/L (3.5-5.1) Chloride Level 85 mmol/L (98-107) Carbon Dioxide Level 19 mmol/L (21-32) Anion Gap 15 (6-14) Blood Urea Nitrogen 92 mg/dL (8-26) Creatinine 3.4 mg/dL (0.7-1.3) Estimated GFR (Cockcroft-Gault) 18.6 BUN/Creatinine Ratio 27 (6-20) Glucose Level 154 mg/dL (70-99) Lactic Acid Level 3.1 mmol/L (0.4-2.0) Calcium Level 8.4 mg/dL (8.5-10.1) Total Bilirubin 1.8 mg/dL (0.2-1.0) Aspartate Amino Transf (AST/SGOT) 117 U/L (15-37) Alanine Aminotransferase (ALT/SGPT) 101 U/L (16-63) Alkaline Phosphatase 256 U/L (46-116) Ammonia < 10 mcmol/L (11-34) Creatine Kinase 1234 U/L (39-308) Troponin I Quantitative < 0.017 ng/mL (0.000-0.055) JH-Fhz-L-Type Natriuretic Peptide 6764 pg/mL (0-124) Total Protein 6.4 g/dL (6.4-8.2) Albumin 2.5 g/dL (3.4-5.0) Albumin/Globulin Ratio 0.6 (1.0-1.7) Lipase 361 U/L (73-393) Ethyl Alcohol Level < 10 mg/dL (0-10) O2 Saturation 94 % (92-99) Arterial Blood pH 7.33 (7.35-7.45) Arterial Blood pCO2 at Patient Temp 34 mmHg (35-46) Arterial Blood pO2 at Patient Temp 75 mmHg (65-108) Arterial Blood HCO3 18 mmol/L (21-28) Arterial Blood Base Excess -7 mmol/L (-3-3) FiO2 40%/ 5lnc Test 05/04/20 13:44 05/04/20 14:45 05/04/20 16:39 05/04/20 17:05 SARS-CoV-2 Antigen (Rapid) Negative (NEGATIVE) Lactic Acid Level 3.1 mmol/L (0.4-2.0) Glucose (Fingerstick) 120 mg/dL (70-99) O2 Saturation 91 % (92-99) Arterial Blood pH 7.20 (7.35-7.45) Arterial Blood pCO2 at Patient Temp 54 mmHg (35-46) Arterial Blood pO2 at Patient Temp 74 mmHg (65-108) Arterial Blood HCO3 21 mmol/L (21-28) Arterial Blood Base Excess -8 mmol/L (-3-3) FiO2 50 Test 05/04/20 19:38 05/04/20 22:05 05/05/20 05:25 O2 Saturation 98 % (92-99) Arterial Blood pH 7.18 (7.35-7.45) Arterial Blood pCO2 at Patient Temp 53 mmHg (35-46) Arterial Blood pO2 at Patient Temp 121 mmHg (65-108) Arterial Blood HCO3 19 mmol/L (21-28) Arterial Blood Base Excess -9 mmol/L (-3-3) FiO2 100 Sodium Level 117 mmol/L (136-145) 119 mmol/L (136-145) Potassium Level 5.1 mmol/L (3.5-5.1) 4.7 mmol/L (3.5-5.1) Chloride Level 86 mmol/L (98-107) 87 mmol/L (98-107) Carbon Dioxide Level 19 mmol/L (21-32) 22 mmol/L (21-32) Anion Gap 12 (6-14) 10 (6-14) Blood Urea Nitrogen 90 mg/dL (8-26) 94 mg/dL (8-26) Creatinine 4.1 mg/dL (0.7-1.3) 3.7 mg/dL (0.7-1.3) Estimated GFR (Cockcroft-Gault) 15.0 16.9 Glucose Level 210 mg/dL (70-99) 236 mg/dL (70-99) Calcium Level 8.1 mg/dL (8.5-10.1) 7.7 mg/dL (8.5-10.1) White Blood Count 16.2 x10^3/uL (4.0-11.0) Red Blood Count 4.21 x10^6/uL (4.30-5.70) Hemoglobin 11.4 g/dL (13.0-17.5) Hematocrit 34.6 % (39.0-53.0) Mean Corpuscular Volume 82 fL (79-100) Mean Corpuscular Hemoglobin 27 pg (25-35) Mean Corpuscular Hemoglobin Concent 33 g/dL (31-37) Red Cell Distribution Width 18.9 % (11.5-14.5) Platelet Count 78 x10^3/uL (140-400) Neutrophils (%) (Auto) 87 % (31-73) Lymphocytes (%) (Auto) 3 % (24-48) Monocytes (%) (Auto) 5 % (0-9) Eosinophils (%) (Auto) 5 % (0-3) Basophils (%) (Auto) 0 % (0-3) Neutrophils # (Auto) 14.1 x10^3/uL (1.8-7.7) Lymphocytes # (Auto) 0.5 x10^3/uL (1.0-4.8) Monocytes # (Auto) 0.9 x10^3/uL (0.0-1.1) Eosinophils # (Auto) 0.8 x10^3/uL (0.0-0.7) Basophils # (Auto) 0.1 x10^3/uL (0.0-0.2) Segmented Neutrophils % 79 % (35-66) Band Neutrophils % 9 % (0-9) Lymphocytes % 6 % (24-48) Monocytes % 6 % (0-10) Toxic Granulation Present Toxic Vacuolation Present Platelet Estimate Decreased (ADEQUATE) Large Platelets Present Phosphorus Level 4.8 mg/dL (2.6-4.7) Magnesium Level 2.0 mg/dL (1.8-2.4) Creatine Kinase 750 U/L (39-308) Images Images CT HEAD WITHOUT CONTRAST 05/04/2020 11:23 AM Indication: Reason: BACK PAIN S/P FALL / Spl. Instructions: / History: Procedure: Multidetector CT imaging of the head was performed without the administration of contrast. Findings: There is no evidence of acute intracranial hemorrhage. There is no evidence of acute territorial infarction. Please note that CT is limited for evaluation of acute ischemia. No mass effect or midline shift is identified . The ventricles and basilar cisterns have an appropriate appearance. No abnormal extra-axial fluid collections are seen. No acute osseous changes are identified. Impression: No evidence of acute intracranial abnormality CT lumbar spine without contrast HISTORY: History of fall, confusion COMPARISON: MRI from 03/18/2019 TECHNIQUE: Axial CT images of the lumbar spine was performed without contrast. Coronal and sagittal reformats are performed Exposure: One or more of the following individualized dose reduction techniques were utilized for this examination: 1. Automated exposure control 2. Adjustment of the mA and/or kV according to patient size 3. Use of iterative reconstruction technique FINDINGS: Moderate compression changes of T12, L1, L2, L3, L4, L5 vertebral level identified with lucency identified in the L1 vertebral body with comminution. Moderate multilevel disc bulge identified in the lumbar spine likely degenerative changes. Mild bibasilar lung atelectasis. Moderate aortic atherosclerosis. IMPRESSION: 1. Lucency identified in the L1 vertebral body with comminution could be subacute or acute fracture. Recommend MRI for further evaluation. 2. Moderate compression changes of the lumbar vertebral bodies likely chronic. Assessment/Plan Assessment/Plan Impression: Metabolic encephalopathy due to renal failure, respiratory failure, no evidence of primary neurological issue such as stroke, seizures, central nervous system infection. 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 Recommendations: Treat medical diseases Holding off on additional neurological studies such as electroencephalogram Thank you for letting me help with the patient's care. VERO GOMEZ MD May 05, 2020 09:44
[2020-05-05] MEDS ORDERED: INSULIN GLARGINE SYRINGE. SQ SCH (10:00)
--- NOTE | 2020-05-05 10:36 | HP ---
ADMIT DATE: 05/04/2020 CHIEF COMPLAINT: Unresponsiveness and renal failure. HISTORY OF PRESENT ILLNESS: A 60-year-old patient of Dr. Carroll, known to me, came into the ER with near obtundation, hypotension and acute renal failure. He was found to have severe leukopenia with a white count of 700 and low platelets at 86,000, but no known hematologic problems in the past. Past record, a year and a half ago, showed normal CBC and renal function. He is apparently a diabetic and hypertensive, who takes chronic opioids for pain. He is a smoker and drinker as well. He became progressively more acidotic and unresponsive and was intubated in the ER. He is now on the ventilator with some Levophed drip because of persistent hypotension. No one is able to provide further history at this time as he is still COVID excluded before his family. PAST MEDICAL HISTORY: Unknown at this time. MEDICATIONS: Per old chart including Actos, lisinopril HCT, and amlodipine and opioids as hydrocodone. ALLERGIES: No allergies are known. SOCIAL HISTORY: Unknown. FAMILY HISTORY: Unknown. REVIEW OF SYSTEMS: No other known problems. OBJECTIVE: ENT: Orally intubated. EYES: Unresponsive. NECK: No masses, nodes or bruits. LUNGS: Decreased breath sounds, on the ventilator. CARDIOVASCULAR: Tachycardia. No murmurs heard. ABDOMEN: Obese, soft, benign. EXTREMITIES: He has 3+ edema, reduced pedal pulses. NEUROLOGIC: Unresponsive, obtunded, immobile secondary to medications. ASSESSMENT: Appears to be sepsis with severe metabolic acidosis from acute renal failure, history of hypertension, dehydration and possible substance abuse. He may have a hematologic disorder due to his initially very low white blood cell count, but previous diagnosis of leukemia does not seem to be confirmed. PLAN: As ordered. MARGARET DUDLEY MD DR: OBED/helene JOB#: [id number] / [id number]
--- NOTE | 2020-05-05 10:58 | CONS ---
DATE OF CONSULTATION: PULMONARY CONSULTATION ATTENDING PHYSICIAN: Nitin Deleon MD. REASON FOR CONSULTATION: Respiratory failure, rhabdomyolysis. HISTORY OF PRESENT ILLNESS: The patient is a 60-year-old obese male with a BMI of 51. The patient has history of hypertension, hyperlipidemia, underlying obesity, congestive heart failure. He was brought into the hospital after he fell on the ground and had a back pain. The patient was noted to be confused. The patient was seen in the Emergency Room and then transferred to the ICU. The patient's respiratory status deteriorated and became less responsive and was in respiratory distress as well. The patient was mechanically ventilated and currently is on vasopressor support. He was found to be in acute kidney injury. He was also found to be hyponatremic and leukopenic. The patient is currently making some urine. He has been hydrated. Clinical picture was consistent with rhabdomyolysis. I have reviewed the patient's chest x-ray and his labs. His arterial blood gases initially were highly abnormal. The patient had evidence of metabolic acidosis and hypoxia. ABGs initially showed a pH of 7.33, pCO2 of 34 and a pO2 of 75 with bicarbonate of 18. Followup ABGs got worse with a pH of 7.18, pCO2 of 53 and pO2 of 121 on 100% FiO2 and latest ABGs showed a pH of 7.45, pCO2 of 32 and a pO2 of 79 with bicarbonate of 22, on 60% FiO2, assist control mode, rate of 26. His chest x-ray revealed cardiomegaly along with slightly prominent interstitial infiltrates. The patient has some nails and rods in the thoracic spine. Endotracheal tube is about 3 cm above the jennifer. I have been asked to see him for further evaluation. PAST MEDICAL HISTORY: Significant for history of hypertension, hyperlipidemia, morbid obesity, congestive heart failure, unknown EF. PAST SURGICAL HISTORY: Knee replacement. SOCIAL HISTORY: Positive for alcohol use and smoking. ALLERGIES: None. MEDICATIONS: Reviewed as listed in the MRAD. REVIEW OF SYSTEMS: Unable to obtain from the patient. PHYSICAL EXAMINATION: VITAL SIGNS: Reviewed. Blood pressure 93 systolic, on low dose Levophed. Pulse ox 99%. GENERAL: Visual exam done due to COVID suspicion. He is morbidly obese. He is in sync with the ventilator. ABDOMEN: Obese. EXTREMITIES: With bilateral pitting edema. LABORATORY DATA: Reviewed. ABG discussed in my history of present illness. SARS-COVID rapid was negative. Urine drug screen positive for opiates. Sodium 119, potassium 4.7, bicarbonate 22, BUN 94, creatinine 3.7. His CPK is 1234. White cell count is now 16.2. IMPRESSION: 1. Acute hypoxic respiratory failure secondary to acute encephalopathy and acute rhabdomyolysis along with metabolic acidosis. 2. Acute rhabdomyolysis from fall, details not available. Urine drug screen also positive for opiates. Currently on a bicarbonate drip. Metabolic acidosis improving. CK will need to be repeated. 3. Bilateral interstitial infiltrates, likely suspect interstitial edema. 4. Leukopenia, which is now resolved and has leukocytosis, pending COVID. 5. Acute kidney injury secondary to rhabdomyolysis. 6. Hyponatremia. RECOMMENDATIONS: 1. Continue present assist control mode. We will make changes based on ABGs. We will reduce the rate today. 2. Wean FiO2. 3. Bicarb drip and IV hydration per Renal. 4. Monitor renal function. 5. Empiric antibiotic per ID. 6. Follow Neurology recommendation. 7. Add DVT prophylaxis. 8. Stress ulcer prophylaxis. 9. Discussed with RN and RT. Chart reviewed, imaging studies reviewed, labs reviewed. Critical care time 37 minutes. ASAD BISHOP MD DR: COLLEEN/helene JOB#: [id number] / [id number]
[2020-05-05] MEDS: INSULIN LISPRO 300 UNITS/3 ML VIAL. SQ SCH ×3 (12:03→23:35)
[2020-05-05 12:28] LABS: CALCIUM 7.6 mg/dL (8.5-10.1); CREATININE 3.5 mg/dL (0.7-1.3)
[2020-05-05 12:29] LABS: POTASSIUM 4.1 mmol/L (3.5-5.1)
[2020-05-05 12:43] LABS: FIO2 ABG 60% VENT
[2020-05-05 13:30] LABS: URIC ACID 10.1 mg/dL (3.5-7.2)
--- NOTE | 2020-05-05 14:04 | PDOC2 ---
CONSULT Date of Consult Date of Consult DATE: 05/05/20 TIME: 13:54 Reason for Consult Reason for Consult: Neutropenia and thrombocytopenia Referring Physician Referring Physician: Dr. Deleon Identification/Chief Complaint Chief Complaint Altered mental status Source Source: Caregiver, Chart review History of Present Illness Reason for Visit: Lee Scott is a 60-year-old male with medical history of hypertension, hyperlipidemia, obesity and CHF who was brought to the hospital after a fall. He was initially assessed in the emergency room and was found to be encephalopathy. He subsequently developed worsening acute respiratory failure and shock of undetermined etiology. He required intubation and mechanical ventilation. Lab studies had been obtained at the time of his hospitalization and showed leukope niru with WBC count of 0.7 and neutropenia. Additionally thrombocytopenia was also noted. A review of his baseline labs does not show any abnormalities in CBC. His current laboratory studies also indicate new onset renal failure, hyponatremia. He has been seen by pulmonology, nephrology. Hematology consultation has been sought due to neutropenia noted on admission labs. 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, vertebroplasty) Current Problem List Problem List Problems Medical Problems: (1) Acute kidney failure Status: Acute (2) Altered mental status Status: Acute (3) Hyperkalemia Status: Acute (4) Hyperuricemia Status: Acute (5) Lymphopenia Status: Acute (6) Respiratory failure with hypoxia Status: Acute Current Medications Current Medications Current Medications Sodium Chloride 1,000 ml @ 1,000 mls/hr 1X ONCE IV Last administered on 05/04at 11:32; Start 05/04/20 at 11:45; Stop 05/04/20 at 12:44; Status DC Ceftriaxone Sodium (Rocephin) 1 gm 1X ONCE IVP Last administered on 05/04/20at 11:33; Start 05/04/20 at 11:45; Stop 05/04/20 at 11:46; Status DC Norepinephrine Bitartrate 8 mg/ Dextrose 258 ml @ 35.314 mls/ hr CONT PRN IV PER PROTOCOL Last administered on 05/04/20at 17:00; Start 05/04/20 at 17:00; Stop 05/04/20 at 18:09; Status DC Naloxone HCl (Narcan) 0.4 mg 1X ONCE IV Last administered on 05/04/20at 17:00; Start 05/04/20 at 17:00; Stop 05/04/20 at 17:01; Status DC Propofol 0 ml @ As Directed STK-MED ONCE IV ; Start 05/04/20 at 17:20; Stop 05/04/20 at 17:20; Status DC Succinylcholine Chloride (Anectine) 200 mg STK-MED ONCE .ROUTE ; Start 05/04/20 at 17:20; Stop 05/04/20 at 17:20; Status DC Rocuronium [place] (Zemuron) 50 mg STK-MED ONCE .ROUTE ; Start 05/04/20 at 17:20; Stop 05/04/20 at 17:21; Status DC Etomidate (Amidate) 20 mg STK-MED ONCE IV ; Start 05/04/20 at 17:20; Stop 05/04/20 at 17:21; Status DC Sodium Bicarbonate 150 meq/Dextrose 1,150 ml @ 150 mls/hr Q7H40M IV Last administered on 05/05/20at 06:35; Start 05/04/20 at 18:30 Fentanyl Citrate 30 ml @ 0 mls/hr CONT PRN IV SEE PROTOCOL; Start 05/04/20 at 18:15 Midazolam HCl 100 ml @ 0 mls/hr CONT PRN IV SEE PROTOCOL Last administered on 05/05/20at 05:20; Start 05/04/20 at 18:15 Norepinephrine Bitartrate 32 mg/ Dextrose 282 ml @ 9.65 mls/hr CONT PRN IV PER PROTOCOL Last administered on 05/05/20at 07:49; Start 05/04/20 at 18:15 Piperacillin Sod/ Tazobactam Sod 2.25 gm/Sodium Chloride 50 ml @ 100 mls/hr Q6HRS IV Last administered on 05/05/20at 08:41; Start 05/05/20 at 08:00 Daptomycin 700 mg/ Sodium Chloride 50 ml @ 100 mls/hr Q48H IV Last administered on 05/05/20at 08:42; Start 05/05/20 at 09:00 Insulin Glargine (Lantus Syringe) 20 unit DAILY10 SQ Last administered on 05/05/20at 10:03; Start 05/05/20 at 10:00 Insulin Human Lispro (HumaLOG) 0-7 UNITS Q6HRS SQ Last administered on 05/05/20at 12:03; Start 05/05/20 at 12:00 Dextrose (Dextrose 50%-Water Syringe) 12.5 gm PRN Q15MIN PRN IV SEE COMMENTS; Start 05/05/20 at 09:15 Heparin Sodium (Porcine) (Heparin Sodium) 5,000 unit Q8HRS SQ ; Start 05/05/20 at 14:00 Famotidine (Pepcid Vial) 20 mg QHS IVP ; Start 05/05/20 at 21:00 Phenylephrine HCl (PHENYLEPHRINE in 0.9% NACL PF) 1 mg STK-MED ONCE IV ; Start 05/04/20 at 18:00; Stop 05/05/20 at 12:11; Status DC Etomidate (Amidate) 20 mg STK-MED ONCE IV ; Start 05/04/20 at 18:00; Stop 05/05/20 at 12:28; Status DC Rocuronium [place] (Zemuron) 50 mg STK-MED ONCE .ROUTE ; Start 05/04/20 at 18:00; Stop 05/05/20 at 12:28; Status DC Succinylcholine Chloride (Anectine) 200 mg STK-MED ONCE .ROUTE ; Start 05/04/20 at 18:00; Stop 05/05/20 at 12:28; Status DC Propofol (Diprivan) 1,000 mg STK-MED ONCE IV ; Start 05/04/20 at 18:00; Stop 05/05/20 at 12:28; Status DC Active Scripts Active [Fluconazole] 100 MG Tablet 200 Mg PO DAILY 10 Days Amox Tr-K Clv 875-125 Mg Tab (Amoxicillin/Potassium Clav) 1 Each Tablet 1 Tab PO BID 10 Days Reported Hydrocodone-Acetamin 5-325 mg (Hydrocodone/Acetaminophen) 1 Each Tablet 1 Each PO PRN Q6HRS PRN Diclofenac Sodium 75 Mg Tablet.dr 1 Tab PO BID Amlodipine Besylate 5 Mg Tablet 5 Mg PO DAILY Furosemide 40 Mg Tablet 1 Tab PO DAILY Lisinopril 30 Mg Tablet 1 Tab PO DAILY Actos (Pioglitazone Hcl) 30 Mg Tablet 1 Tab PO DAILY Allergies Allergies: Coded Allergies: No Known Drug Allergies (Unverified , 01/31/18) ROS Review of System Unable to obtain due to clinical status Physical Exam Physical Exam Intubated and sedated HEENT: Atraumatic Lungs: Other (Mechanical breath sounds) Heart: Regular rate Abdomen: Soft Neuro: Other (Unable to assess) Vitals VITALS Vital Signs Date Time Temp Pulse Resp B/P (MAP) Pulse Ox O2 Delivery O2 Flow Rate FiO2 05/05/20 13:00 59 26 95/55 (68) 99 Ventilator 05/05/20 12:00 98.8 98.8 05/04/20 17:30 5.0 Labs Labs Laboratory Tests Test 05/04/20 11:04 05/04/20 11:13 05/04/20 11:20 05/04/20 12:04 Glucose (Fingerstick) 171 mg/dL (70-99) Urine Collection Type Unknown Urine Color Luisa Urine Clarity Cloudy Urine pH 7.0 (<5.0-8.0) Urine Specific [place] 1.020 (1.000-1.030) Urine Protein 100 mg/dL (NEG-TRACE) Urine Glucose (UA) Negative mg/dL (NEG) Urine Ketones (Stick) Trace mg/dL (NEG) Urine Blood Large (NEG) Urine Nitrite Negative (NEG) Urine Bilirubin Small (NEG) Urine Urobilinogen Dipstick 1.0 mg/dL (0.2 mg/dL) Urine Leukocyte Esterase Large (NEG) Urine RBC 20-40 /HPF (0-2) Urine WBC >40 /HPF (0-4) Urine Squamous Epithelial Cells Few /LPF Urine Bacteria Many /HPF (0-FEW) Urine Opiates Screen Pos (NEG) Urine Methadone Screen Neg (NEG) Urine Barbiturates Neg (NEG) Urine Phencyclidine Screen Neg (NEG) Urine Amphetamine/Methamphetamine Neg (NEG) Urine Benzodiazepines Screen Neg (NEG) Urine Cocaine Screen Neg (NEG) Urine Cannabinoids Screen Neg (NEG) Urine Ethyl Alcohol Neg (NEG) White Blood Count 0.7 x10^3/uL (4.0-11.0) Red Blood Count 4.68 x10^6/uL (4.30-5.70) Hemoglobin 13.2 g/dL (13.0-17.5) Hematocrit 38.8 % (39.0-53.0) Mean Corpuscular Volume 83 fL (79-100) Mean Corpuscular Hemoglobin 28 pg (25-35) Mean Corpuscular Hemoglobin Concent 34 g/dL (31-37) Red Cell Distribution Width 19.3 % (11.5-14.5) Platelet Count 86 x10^3/uL (140-400) Neutrophils (%) (Auto) 37 % (31-73) Lymphocytes (%) (Auto) 14 % (24-48) Monocytes (%) (Auto) 49 % (0-9) Eosinophils (%) (Auto) 0 % (0-3) Basophils (%) (Auto) 0 % (0-3) Neutrophils # (Auto) 0.2 x10^3/uL (1.8-7.7) Lymphocytes # (Auto) 0.1 x10^3/uL (1.0-4.8) Monocytes # (Auto) 0.3 x10^3/uL (0.0-1.1) Eosinophils # (Auto) 0.0 x10^3/uL (0.0-0.7) Basophils # (Auto) 0.0 x10^3/uL (0.0-0.2) Segmented Neutrophils % 31 % (35-66) Band Neutrophils % 5 % (0-9) Lymphocytes % 17 % (24-48) Monocytes % 45 % (0-10) Eosinophils % 1 % (0-5) Basophils % 1 % (0-3) Toxic Granulation Marked Toxic Vacuolation Marked Platelet Estimate Decreased (ADEQUATE) Sodium Level 119 mmol/L (136-145) Potassium Level 5.6 mmol/L (3.5-5.1) Chloride Level 85 mmol/L (98-107) Carbon Dioxide Level 19 mmol/L (21-32) Anion Gap 15 (6-14) Blood Urea Nitrogen 92 mg/dL (8-26) Creatinine 3.4 mg/dL (0.7-1.3) Estimated GFR (Cockcroft-Gault) 18.6 BUN/Creatinine Ratio 27 (6-20) Glucose Level 154 mg/dL (70-99) Lactic Acid Level 3.1 mmol/L (0.4-2.0) Calcium Level 8.4 mg/dL (8.5-10.1) Total Bilirubin 1.8 mg/dL (0.2-1.0) Aspartate Amino Transf (AST/SGOT) 117 U/L (15-37) Alanine Aminotransferase (ALT/SGPT) 101 U/L (16-63) Alkaline Phosphatase 256 U/L (46-116) Ammonia < 10 mcmol/L (11-34) Creatine Kinase 1234 U/L (39-308) Troponin I Quantitative < 0.017 ng/mL (0.000-0.055) YP-Jni-X-Type Natriuretic Peptide 6764 pg/mL (0-124) Total Protein 6.4 g/dL (6.4-8.2) Albumin 2.5 g/dL (3.4-5.0) Albumin/Globulin Ratio 0.6 (1.0-1.7) Lipase 361 U/L (73-393) Ethyl Alcohol Level < 10 mg/dL (0-10) O2 Saturation 94 % (92-99) Arterial Blood pH 7.33 (7.35-7.45) Arterial Blood pCO2 at Patient Temp 34 mmHg (35-46) Arterial Blood pO2 at Patient Temp 75 mmHg (65-108) Arterial Blood HCO3 18 mmol/L (21-28) Arterial Blood Base Excess -7 mmol/L (-3-3) FiO2 40%/ 5lnc Test 05/04/20 13:44 05/04/20 14:45 05/04/20 16:39 05/04/20 17:05 SARS-CoV-2 Antigen (Rapid) Negative (NEGATIVE) Lactic Acid Level 3.1 mmol/L (0.4-2.0) Glucose (Fingerstick) 120 mg/dL (70-99) O2 Saturation 91 % (92-99) Arterial Blood pH 7.20 (7.35-7.45) Arterial Blood pCO2 at Patient Temp 54 mmHg (35-46) Arterial Blood pO2 at Patient Temp 74 mmHg (65-108) Arterial Blood HCO3 21 mmol/L (21-28) Arterial Blood Base Excess -8 mmol/L (-3-3) FiO2 50 Test 05/04/20 19:38 05/04/20 22:05 05/05/20 05:25 05/05/20 08:00 O2 Saturation 98 % (92-99) 96 % (92-99) Arterial Blood pH 7.18 (7.35-7.45) 7.46 (7.35-7.45) Arterial Blood pCO2 at Patient Temp 53 mmHg (35-46) 32 mmHg (35-46) Arterial Blood pO2 at Patient Temp 121 mmHg (65-108) 80 mmHg (65-108) Arterial Blood HCO3 19 mmol/L (21-28) 22 mmol/L (21-28) Arterial Blood Base Excess -9 mmol/L (-3-3) -1 mmol/L (-3-3) FiO2 100 60% vent Sodium Level 117 mmol/L (136-145) 119 mmol/L (136-145) Potassium Level 5.1 mmol/L (3.5-5.1) 4.7 mmol/L (3.5-5.1) Chloride Level 86 mmol/L (98-107) 87 mmol/L (98-107) Carbon Dioxide Level 19 mmol/L (21-32) 22 mmol/L (21-32) Anion Gap 12 (6-14) 10 (6-14) Blood Urea Nitrogen 90 mg/dL (8-26) 94 mg/dL (8-26) Creatinine 4.1 mg/dL (0.7-1.3) 3.7 mg/dL (0.7-1.3) Estimated GFR (Cockcroft-Gault) 15.0 16.9 Glucose Level 210 mg/dL (70-99) 236 mg/dL (70-99) Calcium Level 8.1 mg/dL (8.5-10.1) 7.7 mg/dL (8.5-10.1) White Blood Count 16.2 x10^3/uL (4.0-11.0) Red Blood Count 4.17 x10^6/uL (4.30-5.70) Hemoglobin 11.4 g/dL (13.0-17.5) Hematocrit 34.6 % (39.0-53.0) Mean Corpuscular Volume 82 fL (79-100) Mean Corpuscular Hemoglobin 27 pg (25-35) Mean Corpuscular Hemoglobin Concent 33 g/dL (31-37) Red Cell Distribution Width 18.9 % (11.5-14.5) Platelet Count 78 x10^3/uL (140-400) Neutrophils (%) (Auto) 87 % (31-73) Lymphocytes (%) (Auto) 3 % (24-48) Monocytes (%) (Auto) 5 % (0-9) Eosinophils (%) (Auto) 5 % (0-3) Basophils (%) (Auto) 0 % (0-3) Neutrophils # (Auto) 14.1 x10^3/uL (1.8-7.7) Lymphocytes # (Auto) 0.5 x10^3/uL (1.0-4.8) Monocytes # (Auto) 0.9 x10^3/uL (0.0-1.1) Eosinophils # (Auto) 0.8 x10^3/uL (0.0-0.7) Basophils # (Auto) 0.1 x10^3/uL (0.0-0.2) Segmented Neutrophils % 79 % (35-66) Band Neutrophils % 9 % (0-9) Lymphocytes % 6 % (24-48) Monocytes % 6 % (0-10) Toxic Granulation Present Toxic Vacuolation Present Platelet Estimate Decreased (ADEQUATE) Large Platelets Present Absolute Reticulocyte Count 0.058 x10^6/uL (0.020-0.120) Percent Reticulocyte Count 1.4 % (0.5-2.3) Immature Reticulocyte Fraction 0.59 (0.20-0.60) Phosphorus Level 4.8 mg/dL (2.6-4.7) Magnesium Level 2.0 mg/dL (1.8-2.4) Creatine Kinase 750 U/L (39-308) Test 05/05/20 11:47 05/05/20 12:00 Glucose (Fingerstick) 248 mg/dL (70-99) Sodium Level 123 mmol/L (136-145) Potassium Level 4.1 mmol/L (3.5-5.1) Chloride Level 87 mmol/L (98-107) Carbon Dioxide Level 24 mmol/L (21-32) Anion Gap 12 (6-14) Blood Urea Nitrogen 94 mg/dL (8-26) Creatinine 3.5 mg/dL (0.7-1.3) Estimated GFR (Cockcroft-Gault) 18.0 Glucose Level 243 mg/dL (70-99) Uric Acid 10.1 mg/dL (3.5-7.2) Calcium Level 7.6 mg/dL (8.5-10.1) Ferritin 195 ng/mL (26-388) Lactate Dehydrogenase 326 U/L (85-227) Laboratory Tests Test 05/04/20 14:45 05/04/20 16:39 05/04/20 17:05 05/04/20 19:38 Lactic Acid Level 3.1 mmol/L (0.4-2.0) Glucose (Fingerstick) 120 mg/dL (70-99) O2 Saturation 91 % (92-99) 98 % (92-99) Arterial Blood pH 7.20 (7.35-7.45) 7.18 (7.35-7.45) Arterial Blood pCO2 at Patient Temp 54 mmHg (35-46) 53 mmHg (35-46) Arterial Blood pO2 at Patient Temp 74 mmHg (65-108) 121 mmHg (65-108) Arterial Blood HCO3 21 mmol/L (21-28) 19 mmol/L (21-28) Arterial Blood Base Excess -8 mmol/L (-3-3) -9 mmol/L (-3-3) FiO2 50 100 Test 05/04/20 22:05 05/05/20 05:25 05/05/20 08:00 05/05/20 11:47 Sodium Level 117 mmol/L (136-145) 119 mmol/L (136-145) Potassium Level 5.1 mmol/L (3.5-5.1) 4.7 mmol/L (3.5-5.1) Chloride Level 86 mmol/L (98-107) 87 mmol/L (98-107) Carbon Dioxide Level 19 mmol/L (21-32) 22 mmol/L (21-32) Anion Gap 12 (6-14) 10 (6-14) Blood Urea Nitrogen 90 mg/dL (8-26) 94 mg/dL (8-26) Creatinine 4.1 mg/dL (0.7-1.3) 3.7 mg/dL (0.7-1.3) Estimated GFR (Cockcroft-Gault) 15.0 16.9 Glucose Level 210 mg/dL (70-99) 236 mg/dL (70-99) Calcium Level 8.1 mg/dL (8.5-10.1) 7.7 mg/dL (8.5-10.1) White Blood Count 16.2 x10^3/uL (4.0-11.0) Red Blood Count 4.17 x10^6/uL (4.30-5.70) Hemoglobin 11.4 g/dL (13.0-17.5) Hematocrit 34.6 % (39.0-53.0) Mean Corpuscular Volume 82 fL (79-100) Mean Corpuscular Hemoglobin 27 pg (25-35) Mean Corpuscular Hemoglobin Concent 33 g/dL (31-37) Red Cell Distribution Width 18.9 % (11.5-14.5) Platelet Count 78 x10^3/uL (140-400) Neutrophils (%) (Auto) 87 % (31-73) Lymphocytes (%) (Auto) 3 % (24-48) Monocytes (%) (Auto) 5 % (0-9) Eosinophils (%) (Auto) 5 % (0-3) Basophils (%) (Auto) 0 % (0-3) Neutrophils # (Auto) 14.1 x10^3/uL (1.8-7.7) Lymphocytes # (Auto) 0.5 x10^3/uL (1.0-4.8) Monocytes # (Auto) 0.9 x10^3/uL (0.0-1.1) Eosinophils # (Auto) 0.8 x10^3/uL (0.0-0.7) Basophils # (Auto) 0.1 x10^3/uL (0.0-0.2) Segmented Neutrophils % 79 % (35-66) Band Neutrophils % 9 % (0-9) Lymphocytes % 6 % (24-48) Monocytes % 6 % (0-10) Toxic Granulation Present Toxic Vacuolation Present Platelet Estimate Decreased (ADEQUATE) Large Platelets Present Absolute Reticulocyte Count 0.058 x10^6/uL (0.020-0.120) Percent Reticulocyte Count 1.4 % (0.5-2.3) Immature Reticulocyte Fraction 0.59 (0.20-0.60) Phosphorus Level 4.8 mg/dL (2.6-4.7) Magnesium Level 2.0 mg/dL (1.8-2.4) Creatine Kinase 750 U/L (39-308) O2 Saturation 96 % (92-99) Arterial Blood pH 7.46 (7.35-7.45) Arterial Blood pCO2 at Patient Temp 32 mmHg (35-46) Arterial Blood pO2 at Patient Temp 80 mmHg (65-108) Arterial Blood HCO3 22 mmol/L (21-28) Arterial Blood Base Excess -1 mmol/L (-3-3) FiO2 60% vent Glucose (Fingerstick) 248 mg/dL (70-99) Test 05/05/20 12:00 Sodium Level 123 mmol/L (136-145) Potassium Level 4.1 mmol/L (3.5-5.1) Chloride Level 87 mmol/L (98-107) Carbon Dioxide Level 24 mmol/L (21-32) Anion Gap 12 (6-14) Blood Urea Nitrogen 94 mg/dL (8-26) Creatinine 3.5 mg/dL (0.7-1.3) Estimated GFR (Cockcroft-Gault) 18.0 Glucose Level 243 mg/dL (70-99) Uric Acid 10.1 mg/dL (3.5-7.2) Calcium Level 7.6 mg/dL (8.5-10.1) Ferritin 195 ng/mL (26-388) Lactate Dehydrogenase 326 U/L (85-227) Assessment/Plan Assessment/Plan Assessment: Neutropenia, now resolved. Likely reactive as evidenced by neutrophilic leukocytosis on repeat CBC Thrombocytopenia, likely secondary to acute critical illness Acute renal failure, nonoliguric Metabolic acidosis Acute hypoxic respiratory failure Hyponatremia, improving Normocytic anemia Recommendations: -No additional work-up required for neutropenia given resolution -Check iron studies, B12, reticulocyte count, peripheral smear, EPO level, LDH and haptoglobin for evaluation of anemia and thrombocytopenia -Given renal failure and anemia, will evaluate for plasma cell dyscrasias with SPEP and free light chain assay -Continue management of acute respiratory failure per pulmonology service -Management of AUGUSTINE per nephrology -Rest per primary service Riley Bay MD Medical Oncology/Hematology Ph: [phone] BRIELLE BAY MD May 05, 2020 14:04
[2020-05-05] MEDS: HEPARIN for SUB-Q USE 5,000 UNIT/ML VIAL. SQ SCH ×2 (14:30→21:23)
--- NOTE | 2020-05-05 15:13 | NUR ---
SS following for discharge planning. SS reviewed pt chart and discussed with pt RN. Pt is from home with caregiver and is currently on the vent at 60%. COVID19 negative on rapid test. Pt on IV Daptomycin, IV Zosyn, and Levophed. SS will continue to follow for discharge planning.
[2020-05-05] MEDS: FAMOTIDINE 20 MG/2 ML VIAL IVP SCH (21:14)
[2020-05-06] VITALS (31 sets, daily range): BP systolic 86–154; BP diastolic 38–58
[2020-05-06] MEDS: MIDAZOLAM 100mg/100ml NS BAG 100 ML IV PRN ×2 (01:34→19:09)
[2020-05-06] MEDS: HEPARIN for SUB-Q USE 5,000 UNIT/ML VIAL. SQ SCH ×3 (06:35→21:07)
[2020-05-06] MEDS: INSULIN LISPRO 300 UNITS/3 ML VIAL. SQ SCH ×4 (06:35→23:52)
[2020-05-06] MEDS: PIPERACILLIN/TAZOBACTAM 2.25 GM in IV NORMAL SALINE 50ML 50 ML IV SCH (06:36)
[2020-05-06 06:48] LABS: CALCIUM 7.6 mg/dL (8.5-10.1); CREATININE 2.7 mg/dL (0.7-1.3); GFR 24.3; POTASSIUM 3.8 mmol/L (3.5-5.1)
--- NOTE | 2020-05-06 07:30 | PDOC ---
Infectious Disease Note Subjective Subjective pt is intubated on vent ROS ROS no n/v/d/fever Vital Sign Vital Signs Vital Signs Date Time Temp Pulse Resp B/P (MAP) Pulse Ox O2 Delivery O2 Flow Rate FiO2 05/06/20 06:00 62 26 95/45 (62) 100 Ventilator 05/06/20 04:00 99.4 99.4 Physical Exam PHYSICAL EXAM GENERAL: Sedated, orally intubated gentleman, not in any distress. VITAL SIGNS: stable HEENT: Both pupils are round and reacting. No conjunctival lesion. Orally intubated, unable to see the mouth. NECK: Supple, no JVP, no lymphadenopathy. LUNGS: Decreased breath sounds. HEART: S1, S2 regular. No gallop or murmur. ABDOMEN: Soft, nontender, no organomegaly. EXTREMITIES: No edema or cyanosis. SKIN: Unremarkable. NEUROLOGIC: The patient is sedated, orally intubated, unable to service delivery management consultant, although he was moving all the extremities before intubation as per the RN. Labs Lab Laboratory Tests Test 05/05/20 08:00 05/05/20 11:47 05/05/20 12:00 05/05/20 13:10 O2 Saturation 96 % (92-99) Arterial Blood pH 7.46 (7.35-7.45) Arterial Blood pCO2 at Patient Temp 32 mmHg (35-46) Arterial Blood pO2 at Patient Temp 80 mmHg (65-108) Arterial Blood HCO3 22 mmol/L (21-28) Arterial Blood Base Excess -1 mmol/L (-3-3) FiO2 60% vent Glucose (Fingerstick) 248 mg/dL (70-99) Sodium Level 123 mmol/L (136-145) Potassium Level 4.1 mmol/L (3.5-5.1) Chloride Level 87 mmol/L (98-107) Carbon Dioxide Level 24 mmol/L (21-32) Anion Gap 12 (6-14) Blood Urea Nitrogen 94 mg/dL (8-26) Creatinine 3.5 mg/dL (0.7-1.3) Estimated GFR (Cockcroft-Gault) 18.0 Glucose Level 243 mg/dL (70-99) Uric Acid 10.1 mg/dL (3.5-7.2) Calcium Level 7.6 mg/dL (8.5-10.1) Ferritin 195 ng/mL (26-388) Lactate Dehydrogenase 326 U/L (85-227) Haptoglobin 295 mg/dL (29-370) Test 05/05/20 18:20 05/05/20 23:32 05/06/20 06:30 05/06/20 06:33 Glucose (Fingerstick) 289 mg/dL (70-99) 283 mg/dL (70-99) 299 mg/dL (70-99) Sodium Level 127 mmol/L (136-145) Potassium Level 3.8 mmol/L (3.5-5.1) Chloride Level 89 mmol/L (98-107) Carbon Dioxide Level 28 mmol/L (21-32) Anion Gap 10 (6-14) Blood Urea Nitrogen 86 mg/dL (8-26) Creatinine 2.7 mg/dL (0.7-1.3) Estimated GFR (Cockcroft-Gault) 24.3 Glucose Level 301 mg/dL (70-99) Calcium Level 7.6 mg/dL (8.5-10.1) Micro BC G neg selvin Objective Assessment IMPRESSION: 1. Encephalopathy. 2. Leukopenia, from sepsis , now leukocytosis 3. Respiratory failure. 4. Hyponatremia. 5. Acute kidney injury. 6. Circulatory failure. 7. Obesity. 8. COVID neg 9 G neg selvin sepsis Plan Plan of Care 1. Continue supportive care. 2. Hydration. 3. cont Zosyn. d/c dapto 4. We will follow the blood cultures and also obtain urine culture, supportive care and we will continue to follow. CURT POST MD May 06, 2020 07:30
[2020-05-06 07:37] LABS: BASO % 0 % (0-3); EOS % 0 % (0-3); HEMATOCRIT 34.4 % (39.0-53.0); HEMOGLOBIN 11.5 g/dL (13.0-17.5); LYMPH # 0.6 x10^3/uL (1.0-4.8); LYMPH % 5 % (24-48); MEAN CORPUSCULAR HEMOGLOBIN 27 pg (25-35); MEAN CORPUSCULAR HGB CONC 34 g/dL (31-37); MEAN CORPUSCULAR VOLUME 81 fL (79-100); MONO # 0.3 x10^3/uL (0.0-1.1); MONO % 3 % (0-9); NEUT # 11.5 x10^3/uL (1.8-7.7); NEUT % 92 % (31-73); PLATELET COUNT 79 x10^3/uL (140-400); RED BLOOD COUNT 4.23 x10^6/uL (4.30-5.70); WHITE BLOOD COUNT 12.5 x10^3/uL (4.0-11.0)
[2020-05-06 07:37] LABS: BASE EXCESS ABG 3 mmol/L (-3-3); HCO3 ABG 24 mmol/L (21-28); PCO2 ABG 26 mmHg (35-46); PO2 ABG 77 mmHg (65-108); SAT O2 ABG 95 % (92-99)
[2020-05-06 07:38] LABS: FIO2 ABG 40 VENT
[2020-05-06] MEDS: SODIUM BICARBONATE VIAL 150 MEQ in IV DEXTROSE 5% 1,000 ML IV SCH ×2 (07:44→11:44)
--- NOTE | 2020-05-06 08:53 | PDOC ---
PROGRESS NOTES Date of Service DATE: 05/06/20 TIME: 08:50 Assessment Problems Medical Problems: (1) Acute kidney failure Status: Acute (2) Altered mental status Status: Acute (3) Hyperkalemia Status: Acute (4) Hyperuricemia Status: Acute (5) Lymphopenia Status: Acute (6) Respiratory failure with hypoxia Status: Acute Metabolic encephalopathy due to renal failure, respiratory failure, no evidence of primary neurological issue such as stroke, seizures, central nervous system infection. 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 Plan Hopefully can be extubated today Treat medical diseases Holding off on additional neurological studies such as electroencephalogram Subjective Indicates no pain Objective Vital Signs Date Time Temp Pulse Resp B/P (MAP) Pulse Ox O2 Delivery O2 Flow Rate FiO2 05/06/20 08:00 Mechanical Ventilator 05/06/20 08:00 56 104/47 (66) 05/06/20 08:00 22 99 05/06/20 04:00 99.4 99.4 Intake and Output 05/06/20 07:00 Intake Total 5509 ml Output Total 4150 ml Balance 1359 ml IV Total 4051 ml Tube Feeding 1058 ml Other 400 ml Output Urine Total 4150 ml PHYSICAL EXAM Alert, follows a few commands, gives a thumbs up sign when I mention that he might be extubated today PERRL. EOMI. CN: no focal findings. Muscle tone: normal. Muscle strength: Moves all extremities DTR: 0+ Plantar reflex: Flexor Gait: not examined in bed. Sensory exam: no abnormal findings. No cerebellar signs elicited. Review of Relevant I have reviewed the following items elina (where applicable) has been applied. Labs Laboratory Tests Test 05/04/20 11:04 05/04/20 11:13 05/04/20 11:20 05/04/20 12:04 Glucose (Fingerstick) 171 mg/dL (70-99) Urine Collection Type Unknown Urine Color Luisa Urine Clarity Cloudy Urine pH 7.0 (<5.0-8.0) Urine Specific [place] 1.020 (1.000-1.030) Urine Protein 100 mg/dL (NEG-TRACE) Urine Glucose (UA) Negative mg/dL (NEG) Urine Ketones (Stick) Trace mg/dL (NEG) Urine Blood Large (NEG) Urine Nitrite Negative (NEG) Urine Bilirubin Small (NEG) Urine Urobilinogen Dipstick 1.0 mg/dL (0.2 mg/dL) Urine Leukocyte Esterase Large (NEG) Urine RBC 20-40 /HPF (0-2) Urine WBC >40 /HPF (0-4) Urine Squamous Epithelial Cells Few /LPF Urine Bacteria Many /HPF (0-FEW) Urine Opiates Screen Pos (NEG) Urine Methadone Screen Neg (NEG) Urine Barbiturates Neg (NEG) Urine Phencyclidine Screen Neg (NEG) Urine Amphetamine/Methamphetamine Neg (NEG) Urine Benzodiazepines Screen Neg (NEG) Urine Cocaine Screen Neg (NEG) Urine Cannabinoids Screen Neg (NEG) Urine Ethyl Alcohol Neg (NEG) White Blood Count 0.7 x10^3/uL (4.0-11.0) Red Blood Count 4.68 x10^6/uL (4.30-5.70) Hemoglobin 13.2 g/dL (13.0-17.5) Hematocrit 38.8 % (39.0-53.0) Mean Corpuscular Volume 83 fL (79-100) Mean Corpuscular Hemoglobin 28 pg (25-35) Mean Corpuscular Hemoglobin Concent 34 g/dL (31-37) Red Cell Distribution Width 19.3 % (11.5-14.5) Platelet Count 86 x10^3/uL (140-400) Neutrophils (%) (Auto) 37 % (31-73) Lymphocytes (%) (Auto) 14 % (24-48) Monocytes (%) (Auto) 49 % (0-9) Eosinophils (%) (Auto) 0 % (0-3) Basophils (%) (Auto) 0 % (0-3) Neutrophils # (Auto) 0.2 x10^3/uL (1.8-7.7) Lymphocytes # (Auto) 0.1 x10^3/uL (1.0-4.8) Monocytes # (Auto) 0.3 x10^3/uL (0.0-1.1) Eosinophils # (Auto) 0.0 x10^3/uL (0.0-0.7) Basophils # (Auto) 0.0 x10^3/uL (0.0-0.2) Segmented Neutrophils % 31 % (35-66) Band Neutrophils % 5 % (0-9) Lymphocytes % 17 % (24-48) Monocytes % 45 % (0-10) Eosinophils % 1 % (0-5) Basophils % 1 % (0-3) Toxic Granulation Marked Toxic Vacuolation Marked Platelet Estimate Decreased (ADEQUATE) Sodium Level 119 mmol/L (136-145) Potassium Level 5.6 mmol/L (3.5-5.1) Chloride Level 85 mmol/L (98-107) Carbon Dioxide Level 19 mmol/L (21-32) Anion Gap 15 (6-14) Blood Urea Nitrogen 92 mg/dL (8-26) Creatinine 3.4 mg/dL (0.7-1.3) Estimated GFR (Cockcroft-Gault) 18.6 BUN/Creatinine Ratio 27 (6-20) Glucose Level 154 mg/dL (70-99) Lactic Acid Level 3.1 mmol/L (0.4-2.0) Calcium Level 8.4 mg/dL (8.5-10.1) Total Bilirubin 1.8 mg/dL (0.2-1.0) Aspartate Amino Transf (AST/SGOT) 117 U/L (15-37) Alanine Aminotransferase (ALT/SGPT) 101 U/L (16-63) Alkaline Phosphatase 256 U/L (46-116) Ammonia < 10 mcmol/L (11-34) Creatine Kinase 1234 U/L (39-308) Troponin I Quantitative < 0.017 ng/mL (0.000-0.055) HE-Tzm-C-Type Natriuretic Peptide 6764 pg/mL (0-124) Total Protein 6.4 g/dL (6.4-8.2) Albumin 2.5 g/dL (3.4-5.0) Albumin/Globulin Ratio 0.6 (1.0-1.7) Lipase 361 U/L (73-393) Ethyl Alcohol Level < 10 mg/dL (0-10) O2 Saturation 94 % (92-99) Arterial Blood pH 7.33 (7.35-7.45) Arterial Blood pCO2 at Patient Temp 34 mmHg (35-46) Arterial Blood pO2 at Patient Temp 75 mmHg (65-108) Arterial Blood HCO3 18 mmol/L (21-28) Arterial Blood Base Excess -7 mmol/L (-3-3) FiO2 40%/ 5lnc Test 05/04/20 13:44 05/04/20 14:45 05/04/20 16:39 05/04/20 17:05 Coronavirus (PCR) Not detected (Not Detected) SARS-CoV-2 Antigen (Rapid) Negative (NEGATIVE) Lactic Acid Level 3.1 mmol/L (0.4-2.0) Glucose (Fingerstick) 120 mg/dL (70-99) O2 Saturation 91 % (92-99) Arterial Blood pH 7.20 (7.35-7.45) Arterial Blood pCO2 at Patient Temp 54 mmHg (35-46) Arterial Blood pO2 at Patient Temp 74 mmHg (65-108) Arterial Blood HCO3 21 mmol/L (21-28) Arterial Blood Base Excess -8 mmol/L (-3-3) FiO2 50 Test 05/04/20 19:38 05/04/20 22:05 05/05/20 05:25 05/05/20 08:00 O2 Saturation 98 % (92-99) 96 % (92-99) Arterial Blood pH 7.18 (7.35-7.45) 7.46 (7.35-7.45) Arterial Blood pCO2 at Patient Temp 53 mmHg (35-46) 32 mmHg (35-46) Arterial Blood pO2 at Patient Temp 121 mmHg (65-108) 80 mmHg (65-108) Arterial Blood HCO3 19 mmol/L (21-28) 22 mmol/L (21-28) Arterial Blood Base Excess -9 mmol/L (-3-3) -1 mmol/L (-3-3) FiO2 100 60% vent Sodium Level 117 mmol/L (136-145) 119 mmol/L (136-145) Potassium Level 5.1 mmol/L (3.5-5.1) 4.7 mmol/L (3.5-5.1) Chloride Level 86 mmol/L (98-107) 87 mmol/L (98-107) Carbon Dioxide Level 19 mmol/L (21-32) 22 mmol/L (21-32) Anion Gap 12 (6-14) 10 (6-14) Blood Urea Nitrogen 90 mg/dL (8-26) 94 mg/dL (8-26) Creatinine 4.1 mg/dL (0.7-1.3) 3.7 mg/dL (0.7-1.3) Estimated GFR (Cockcroft-Gault) 15.0 16.9 Glucose Level 210 mg/dL (70-99) 236 mg/dL (70-99) Calcium Level 8.1 mg/dL (8.5-10.1) 7.7 mg/dL (8.5-10.1) White Blood Count 16.2 x10^3/uL (4.0-11.0) Red Blood Count 4.17 x10^6/uL (4.30-5.70) Hemoglobin 11.4 g/dL (13.0-17.5) Hematocrit 34.6 % (39.0-53.0) Mean Corpuscular Volume 82 fL (79-100) Mean Corpuscular Hemoglobin 27 pg (25-35) Mean Corpuscular Hemoglobin Concent 33 g/dL (31-37) Red Cell Distribution Width 18.9 % (11.5-14.5) Platelet Count 78 x10^3/uL (140-400) Neutrophils (%) (Auto) 87 % (31-73) Lymphocytes (%) (Auto) 3 % (24-48) Monocytes (%) (Auto) 5 % (0-9) Eosinophils (%) (Auto) 5 % (0-3) Basophils (%) (Auto) 0 % (0-3) Neutrophils # (Auto) 14.1 x10^3/uL (1.8-7.7) Lymphocytes # (Auto) 0.5 x10^3/uL (1.0-4.8) Monocytes # (Auto) 0.9 x10^3/uL (0.0-1.1) Eosinophils # (Auto) 0.8 x10^3/uL (0.0-0.7) Basophils # (Auto) 0.1 x10^3/uL (0.0-0.2) Segmented Neutrophils % 79 % (35-66) Band Neutrophils % 9 % (0-9) Lymphocytes % 6 % (24-48) Monocytes % 6 % (0-10) Toxic Granulation Present Toxic Vacuolation Present Platelet Estimate Decreased (ADEQUATE) Large Platelets Present Absolute Reticulocyte Count 0.058 x10^6/uL (0.020-0.120) Percent Reticulocyte Count 1.4 % (0.5-2.3) Immature Reticulocyte Fraction 0.59 (0.20-0.60) Phosphorus Level 4.8 mg/dL (2.6-4.7) Magnesium Level 2.0 mg/dL (1.8-2.4) Iron Level 12 ug/dL (65-175) Total Iron Binding Capacity 242 ug/dL (250-450) Iron Saturation 5 % (15-34) Creatine Kinase 750 U/L (39-308) Vitamin B12 Level > 2000 pg/mL (247-911) Test 05/05/20 11:47 05/05/20 12:00 05/05/20 13:10 05/05/20 18:20 Glucose (Fingerstick) 248 mg/dL (70-99) 289 mg/dL (70-99) Sodium Level 123 mmol/L (136-145) Potassium Level 4.1 mmol/L (3.5-5.1) Chloride Level 87 mmol/L (98-107) Carbon Dioxide Level 24 mmol/L (21-32) Anion Gap 12 (6-14) Blood Urea Nitrogen 94 mg/dL (8-26) Creatinine 3.5 mg/dL (0.7-1.3) Estimated GFR (Cockcroft-Gault) 18.0 Glucose Level 243 mg/dL (70-99) Uric Acid 10.1 mg/dL (3.5-7.2) Calcium Level 7.6 mg/dL (8.5-10.1) Ferritin 195 ng/mL (26-388) Lactate Dehydrogenase 326 U/L (85-227) Haptoglobin 295 mg/dL (29-370) Test 05/05/20 23:32 05/06/20 06:30 05/06/20 06:33 05/06/20 07:32 Glucose (Fingerstick) 283 mg/dL (70-99) 299 mg/dL (70-99) White Blood Count 12.5 x10^3/uL (4.0-11.0) Red Blood Count 4.23 x10^6/uL (4.30-5.70) Hemoglobin 11.5 g/dL (13.0-17.5) Hematocrit 34.4 % (39.0-53.0) Mean Corpuscular Volume 81 fL (79-100) Mean Corpuscular Hemoglobin 27 pg (25-35) Mean Corpuscular Hemoglobin Concent 34 g/dL (31-37) Red Cell Distribution Width 19.0 % (11.5-14.5) Platelet Count 79 x10^3/uL (140-400) Neutrophils (%) (Auto) 92 % (31-73) Lymphocytes (%) (Auto) 5 % (24-48) Monocytes (%) (Auto) 3 % (0-9) Eosinophils (%) (Auto) 0 % (0-3) Basophils (%) (Auto) 0 % (0-3) Neutrophils # (Auto) 11.5 x10^3/uL (1.8-7.7) Lymphocytes # (Auto) 0.6 x10^3/uL (1.0-4.8) Monocytes # (Auto) 0.3 x10^3/uL (0.0-1.1) Eosinophils # (Auto) 0.0 x10^3/uL (0.0-0.7) Basophils # (Auto) 0.0 x10^3/uL (0.0-0.2) Sodium Level 127 mmol/L (136-145) Potassium Level 3.8 mmol/L (3.5-5.1) Chloride Level 89 mmol/L (98-107) Carbon Dioxide Level 28 mmol/L (21-32) Anion Gap 10 (6-14) Blood Urea Nitrogen 86 mg/dL (8-26) Creatinine 2.7 mg/dL (0.7-1.3) Estimated GFR (Cockcroft-Gault) 24.3 Glucose Level 301 mg/dL (70-99) Calcium Level 7.6 mg/dL (8.5-10.1) O2 Saturation 95 % (92-99) Arterial Blood pH 7.58 (7.35-7.45) Arterial Blood pCO2 at Patient Temp 26 mmHg (35-46) Arterial Blood pO2 at Patient Temp 77 mmHg (65-108) Arterial Blood HCO3 24 mmol/L (21-28) Arterial Blood Base Excess 3 mmol/L (-3-3) FiO2 40 vent Laboratory Tests Test 05/05/20 11:47 05/05/20 12:00 05/05/20 13:10 05/05/20 18:20 Glucose (Fingerstick) 248 mg/dL (70-99) 289 mg/dL (70-99) Sodium Level 123 mmol/L (136-145) Potassium Level 4.1 mmol/L (3.5-5.1) Chloride Level 87 mmol/L (98-107) Carbon Dioxide Level 24 mmol/L (21-32) Anion Gap 12 (6-14) Blood Urea Nitrogen 94 mg/dL (8-26) Creatinine 3.5 mg/dL (0.7-1.3) Estimated GFR (Cockcroft-Gault) 18.0 Glucose Level 243 mg/dL (70-99) Uric Acid 10.1 mg/dL (3.5-7.2) Calcium Level 7.6 mg/dL (8.5-10.1) Ferritin 195 ng/mL (26-388) Lactate Dehydrogenase 326 U/L (85-227) Haptoglobin 295 mg/dL (29-370) Test 05/05/20 23:32 05/06/20 06:30 05/06/20 06:33 05/06/20 07:32 Glucose (Fingerstick) 283 mg/dL (70-99) 299 mg/dL (70-99) White Blood Count 12.5 x10^3/uL (4.0-11.0) Red Blood Count 4.23 x10^6/uL (4.30-5.70) Hemoglobin 11.5 g/dL (13.0-17.5) Hematocrit 34.4 % (39.0-53.0) Mean Corpuscular Volume 81 fL (79-100) Mean Corpuscular Hemoglobin 27 pg (25-35) Mean Corpuscular Hemoglobin Concent 34 g/dL (31-37) Red Cell Distribution Width 19.0 % (11.5-14.5) Platelet Count 79 x10^3/uL (140-400) Neutrophils (%) (Auto) 92 % (31-73) Lymphocytes (%) (Auto) 5 % (24-48) Monocytes (%) (Auto) 3 % (0-9) Eosinophils (%) (Auto) 0 % (0-3) Basophils (%) (Auto) 0 % (0-3) Neutrophils # (Auto) 11.5 x10^3/uL (1.8-7.7) Lymphocytes # (Auto) 0.6 x10^3/uL (1.0-4.8) Monocytes # (Auto) 0.3 x10^3/uL (0.0-1.1) Eosinophils # (Auto) 0.0 x10^3/uL (0.0-0.7) Basophils # (Auto) 0.0 x10^3/uL (0.0-0.2) Sodium Level 127 mmol/L (136-145) Potassium Level 3.8 mmol/L (3.5-5.1) Chloride Level 89 mmol/L (98-107) Carbon Dioxide Level 28 mmol/L (21-32) Anion Gap 10 (6-14) Blood Urea Nitrogen 86 mg/dL (8-26) Creatinine 2.7 mg/dL (0.7-1.3) Estimated GFR (Cockcroft-Gault) 24.3 Glucose Level 301 mg/dL (70-99) Calcium Level 7.6 mg/dL (8.5-10.1) O2 Saturation 95 % (92-99) Arterial Blood pH 7.58 (7.35-7.45) Arterial Blood pCO2 at Patient Temp 26 mmHg (35-46) Arterial Blood pO2 at Patient Temp 77 mmHg (65-108) Arterial Blood HCO3 24 mmol/L (21-28) Arterial Blood Base Excess 3 mmol/L (-3-3) FiO2 40 vent Microbiology 05/04/20 Blood Culture - Final, Complete 05/04/20 Urine Culture - Preliminary, Resulted Medications Current Medications Sodium Chloride 1,000 ml @ 1,000 mls/hr 1X ONCE IV Last administered on 05/04/20at 11:32; Start 05/04/20 at 11:45; Stop 05/04/20 at 12:44; Status DC Ceftriaxone Sodium (Rocephin) 1 gm 1X ONCE IVP Last administered on 05/04/20at 11:33; Start 05/04/20 at 11:45; Stop 05/04/20 at 11:46; Status DC Norepinephrine Bitartrate 8 mg/ Dextrose 258 ml @ 35.314 mls/ hr CONT PRN IV PER PROTOCOL Last administered on 05/04/20at 17:00; Start 05/04/20 at 17:00; Stop 05/04/20 at 18:09; Status DC Naloxone HCl (Narcan) 0.4 mg 1X ONCE IV Last administered on 05/04/20at 17:00; Start 05/04/20 at 17:00; Stop 05/04/20 at 17:01; Status DC Propofol 0 ml @ As Directed STK-MED ONCE IV ; Start 05/04/20 at 17:20; Stop 05/04/20 at 17:20; Status DC Succinylcholine Chloride (Anectine) 200 mg STK-MED ONCE .ROUTE ; Start 05/04/20 at 17:20; Stop 05/04/20 at 17:20; Status DC Rocuronium Sutton (Zemuron) 50 mg STK-MED ONCE .ROUTE ; Start 05/04/20 at 17:20; Stop 05/04/20 at 17:21; Status DC Etomidate (Amidate) 20 mg STK-MED ONCE IV ; Start 05/04/20 at 17:20; Stop 05/04/20 at 17:21; Status DC Sodium Bicarbonate 150 meq/Dextrose 1,150 ml @ 150 mls/hr Q7H40M IV Last administered on 05/06/20at 07:44; Start 05/04/20 at 18:30 Fentanyl Citrate 30 ml @ 0 mls/hr CONT PRN IV SEE PROTOCOL; Start 05/04/20 at 18:15 Midazolam HCl 100 ml @ 0 mls/hr CONT PRN IV SEE PROTOCOL Last administered on 05/06/20at 01:34; Start 05/04/20 at 18:15 Norepinephrine Bitartrate 32 mg/ Dextrose 282 ml @ 9.65 mls/hr CONT PRN IV PER PROTOCOL Last administered on 05/05/20at 07:49; Start 05/04/20 at 18:15 Piperacillin Sod/ Tazobactam Sod 2.25 gm/Sodium Chloride 50 ml @ 100 mls/hr Q6HRS IV Last administered on 05/06/20at 06:36; Start 05/05/20 at 08:00; Stop 05/06/20 at 08:39; Status DC Daptomycin 700 mg/ Sodium Chloride 50 ml @ 100 mls/hr Q48H IV Last administered on 05/05/20at 08:42; Start 05/05/20 at 09:00 Insulin Glargine (Lantus Syringe) 20 unit DAILY10 SQ Last administered on 05/05/20at 10:03; Start 05/05/20 at 10:00 Insulin Human Lispro (HumaLOG) 0-7 UNITS Q6HRS SQ Last administered on 05/06/20at 06:35; Start 05/05/20 at 12:00 Dextrose (Dextrose 50%-Water Syringe) 12.5 gm PRN Q15MIN PRN IV SEE COMMENTS; Start 05/05/20 at 09:15 Heparin Sodium (Porcine) (Heparin Sodium) 5,000 unit Q8HRS SQ Last administered on 05/06/20at 06:35; Start 05/05/20 at 14:00 Famotidine (Pepcid Vial) 20 mg QHS IVP Last administered on 05/05/20at 21:14; Start 05/05/20 at 21:00 Phenylephrine HCl (PHENYLEPHRINE in 0.9% NACL PF) 1 mg STK-MED ONCE IV ; Start 05/04/20 at 18:00; Stop 05/05/20 at 12:11; Status DC Etomidate (Amidate) 20 mg STK-MED ONCE IV ; Start 05/04/20 at 18:00; Stop 05/05/20 at 12:28; Status DC Rocuronium Sutton (Zemuron) 50 mg STK-MED ONCE .ROUTE ; Start 05/04/20 at 18:00; Stop 05/05/20 at 12:28; Status DC Succinylcholine Chloride (Anectine) 200 mg STK-MED ONCE .ROUTE ; Start 05/04/20 at 18:00; Stop 05/05/20 at 12:28; Status DC Propofol (Diprivan) 1,000 mg STK-MED ONCE IV ; Start 05/04/20 at 18:00; Stop 05/05/20 at 12:28; Status DC Piperacillin Sod/ Tazobactam Sod 3.375 gm/Sodium Chloride 50 ml @ 100 mls/hr Q6 HRS IV ; Start 05/06/20 at 12:00 Active Scripts Active [Fluconazole] 100 MG Tablet 200 Mg PO DAILY 10 Days Amox Tr-K Clv 875-125 Mg Tab (Amoxicillin/Potassium Clav) 1 Each Tablet 1 Tab PO BID 10 Days Reported Hydrocodone-Acetamin 5-325 mg (Hydrocodone/Acetaminophen) 1 Each Tablet 1 Each PO PRN Q6HRS PRN Diclofenac Sodium 75 Mg Tablet.dr 1 Tab PO BID Amlodipine Besylate 5 Mg Tablet 5 Mg PO DAILY Furosemide 40 Mg Tablet 1 Tab PO DAILY Lisinopril 30 Mg Tablet 1 Tab PO DAILY Actos (Pioglitazone Hcl) 30 Mg Tablet 1 Tab PO DAILY Vitals/I & O Vital Sign - Last 24 Hours 05/05/20 05/05/20 05/05/20 05/05/20 09:00 10:00 11:00 11:20 Pulse 57 56 54 Resp B/P (MAP) 90/52 (65) 102/53 (69) 95/53 (67) Pulse Ox 99 99 100 100 O2 Delivery Ventilator Ventilator Ventilator Ventilator 05/05/20 05/05/20 05/05/20 05/05/20 12:00 12:00 12:00 13:00 Temp 98.8 98.8 Pulse 55 55 59 B/P (MAP) 110/56 (74) 110/56 (74) 95/55 (68) Pulse Ox 99 99 O2 Delivery Mechanical Ventilator Ventilator Ventilator 05/05/20 05/05/20 05/05/20 05/05/20 14:00 15:00 16:00 16:00 Temp 98.7 98.7 Pulse 58 60 65 65 Resp B/P (MAP) 109/53 (71) 103/54 (70) 121/60 (80) 121/60 (80) Pulse Ox 99 100 100 O2 Delivery Ventilator Ventilator Ventilator 05/05/20 05/05/20 05/05/20 05/05/20 16:00 16:20 17:00 18:00 Pulse 61 62 Resp B/P (MAP) 106/55 (72) 102/51 (68) Pulse Ox 100 100 99 O2 Delivery Mechanical Ventilator Ventilator Ventilator Ventilator 05/05/20 05/05/20 05/05/20 05/05/20 19:00 20:00 20:00 20:00 Temp 98.3 98.3 Pulse 59 64 Resp B/P (MAP) 101/51 (68) 102/52 (69) Pulse Ox 100 100 O2 Delivery Ventilator Ventilator Mechanical Ventilator 05/05/20 05/05/20 05/05/20 05/05/20 20:04 21:00 22:00 22:15 Pulse 60 60 Resp B/P (MAP) 90/46 (61) 104/44 (64) 83/43 (56) Pulse Ox 100 100 100 O2 Delivery Ventilator Ventilator Ventilator 05/05/20 05/05/20 05/05/20 05/06/20 22:30 23:00 23:30 00:00 Pulse 65 Resp 26 B/P (MAP) 94/41 (58) 96/45 (62) Pulse Ox 98 O2 Delivery Ventilator Mechanical Ventilator 05/06/20 05/06/20 05/06/20 05/06/20 00:01 00:25 01:00 01:15 Temp 99.4 99.4 Pulse 60 67 Resp B/P (MAP) 110/50 (70) 108/47 (67) 106/46 (66) Pulse Ox 99 99 99 O2 Delivery Ventilator Ventilator Ventilator 05/06/20 05/06/20 05/06/20 05/06/20 02:00 02:15 03:00 03:45 Pulse 68 67 Resp B/P (MAP) 107/53 (71) 108/48 (68) 99/45 (63) Pulse Ox 100 100 O2 Delivery Ventilator Ventilator Mechanical Ventilator 05/06/20 05/06/20 05/06/20 05/06/20 04:00 04:00 04:30 04:45 Temp 99.4 99.4 Pulse 66 Resp B/P (MAP) 90/44 (59) 100/46 (64) Pulse Ox 100 100 O2 Delivery Ventilator Ventilator 05/06/20 05/06/20 05/06/20 05/06/20 05:00 06:00 07:00 07:29 Pulse 57 62 60 Resp 26 B/P (MAP) 102/47 (65) 95/45 (62) 101/46 (64) Pulse Ox 100 100 100 97 O2 Delivery Ventilator Ventilator Ventilator Ventilator 05/06/20 05/06/20 05/06/20 08:00 08:00 08:00 Pulse 56 56 Resp 22 B/P (MAP) 104/47 (66) 104/47 (66) Pulse Ox 99 O2 Delivery Ventilator Mechanical Ventilator Intake and Output 05/05/20 05/05/20 05/06/20 15:00 23:00 07:00 Intake Total 200 ml 2722 ml 2587 ml Output Total 1175 ml 1375 ml 1600 ml Balance -975 ml 1347 ml 987 ml Justicifation of Admission Dx: Justifications for Admission: Justification of Admission Dx: N/A VERO GOMEZ MD May 06, 2020 08:53
--- NOTE | 2020-05-06 09:03 | PDOC ---
DATE OF SERVICE DATE: 05/06/20 TIME: 08:53 SUBJECTIVE ROS Remains intubated, sedated OBJECTIVE Vital Signs Vital Signs Date Time Temp Pulse Resp B/P (MAP) Pulse Ox O2 Delivery O2 Flow Rate FiO2 05/06/20 08:00 Mechanical Ventilator 05/06/20 08:00 56 104/47 (66) 05/06/20 08:00 22 99 05/06/20 04:00 99.4 99.4 I & 0 Intake and Output 05/06/20 07:00 Intake Total 5509 ml Output Total 4150 ml Balance 1359 ml IV Total 4051 ml Tube Feeding 1058 ml Other 400 ml Output Urine Total 4150 ml PHYSICAL EXAM Physical Exam GENERAL: Sedated, not in any distress. HEENT: Both pupils are round and reacting. Orally intubated NECK: Supple, LUNGS: Decreased breath sounds. HEART: S1, S2 regular. No gallop or murmur. ABDOMEN: Soft, obese EXTREMITIES: Bilat LE edema 2-3+ SKIN: Unremarkable, No Rash NEUROLOGIC:sedated, orally intubated, moving all the extremities before intubation per the ENRICO Duggan present PSYCH Unable to assess DIAGNOSIS/ASSESSMENT Assessment & Plan AUGUSTINE - Currently Non Oliguric , ATN, Mild Rhabdo, renal function improving UOP adequate,monitor for polyuria, dc IVF , continue TF , Avoid nephrotoxins HypoNatremia - improving Metabolic Acidosis POA - resolved , dc IV bicarb gtt ? UTI - E Coli on culture, defer to ID Rhabdo- minimally elevated CK , on IVF , improving Acute hypoxic respiratory failure secondary to acute encephalopathy . Bilateral interstitial infiltrates Encephalopathy. Leukopenia POA - resolved, now Leukocytosis Thrombocytopenia - hem/Onc consulted COMMENT/RELEVANT DATA Meds Current Medications Medications (Trade) Dose Ordered Sig/Triny Start Time Stop Time Status Last Admin Dose Admin Ceftriaxone Sodium (Rocephin) 1 gm 1X ONCE 05/04/20 11:45 05/04/20 11:46 DC 05/04/20 11:33 1 GM Daptomycin 700 mg/ Sodium Chloride 50 ml @ 100 mls/hr Q48H 05/05/20 09:00 05/05/20 08:42 100 MLS/HR Dextrose (Dextrose 50%-Water Syringe) 12.5 gm PRN Q15MIN PRN 05/05/20 09:15 Etomidate (Amidate) 20 mg STK-MED ONCE 05/04/20 18:00 3/2/21 12:28 DC Famotidine (Pepcid Vial) 20 mg QHS 05/05/20 21:00 05/05/20 21:14 20 MG Fentanyl Citrate 30 ml @ 0 mls/hr CONT PRN 05/04/20 18:15 Heparin Sodium (Porcine) (Heparin Sodium) 5,000 unit Q8HRS 05/05/20 14:00 05/06/20 06:35 5,000 UNIT Insulin Glargine (Lantus Syringe) 20 unit DAILY10 05/05/20 10:00 05/05/20 10:03 20 UNIT Insulin Human Lispro (HumaLOG) 0-7 UNITS Q6HRS 05/05/20 12:00 05/06/20 06:35 6 UNITS Midazolam HCl 100 ml @ 0 mls/hr CONT PRN 05/04/20 18:15 05/06/20 01:34 5 MLS/HR Naloxone HCl (Narcan) 0.4 mg 1X ONCE 05/04/20 17:00 05/04/20 17:01 DC 05/04/20 17:00 0.4 MG Norepinephrine Bitartrate 32 mg/ Dextrose 282 ml @ 9.65 mls/hr CONT PRN 05/04/20 18:15 05/05/20 07:49 9.65 MLS/HR Norepinephrine Bitartrate 8 mg/ Dextrose 258 ml @ 35.314 mls/ hr CONT PRN 05/04/20 17:00 05/04/20 18:09 DC 05/04/20 17:00 35.314 MLS/HR Phenylephrine HCl (PHENYLEPHRINE in 0.9% NACL PF) 1 mg STK-MED ONCE 05/04/20 18:00 05/05/20 12:11 DC Piperacillin Sod/ Tazobactam Sod 2.25 gm/Sodium Chloride 50 ml @ 100 mls/hr Q6HRS 05/05/20 08:00 05/06/20 08:39 DC 05/06/20 06:36 100 MLS/HR Piperacillin Sod/ Tazobactam Sod 3.375 gm/Sodium Chloride 50 ml @ 100 mls/hr Q6HRS 05/06/20 12:00 Propofol (Diprivan) 1,000 mg STK-MED ONCE 05/04/20 18:00 05/05/20 12:28 DC Rocuronium [place] (Zemuron) 50 mg STK-MED ONCE 05/04/20 18:00 05/05/20 12:28 DC Sodium Bicarbonate 150 meq/Dextrose 1,150 ml @ 150 mls/hr Q7H40M 05/04/20 18:30 05/06/20 07:44 150 MLS/HR Sodium Chloride 1,000 ml @ 1,000 mls/hr 1X ONCE 05/04/20 11:45 05/04/20 12:44 DC 05/04/20 11:32 1,000 MLS/HR Succinylcholine Chloride (Anectine) 200 mg STK-MED ONCE 05/04/20 18:00 05/05/20 12:28 DC Lab Laboratory Tests Test 05/05/20 11:47 05/05/20 12:00 05/05/20 13:10 05/05/20 18:20 Glucose (Fingerstick) 248 mg/dL (70-99) 289 mg/dL (70-99) Sodium Level 123 mmol/L (136-145) Potassium Level 4.1 mmol/L (3.5-5.1) Chloride Level 87 mmol/L (98-107) Carbon Dioxide Level 24 mmol/L (21-32) Anion Gap 12 (6-14) Blood Urea Nitrogen 94 mg/dL (8-26) Creatinine 3.5 mg/dL (0.7-1.3) Estimated GFR (Cockcroft-Gault) 18.0 Glucose Level 243 mg/dL (70-99) Uric Acid 10.1 mg/dL (3.5-7.2) Calcium Level 7.6 mg/dL (8.5-10.1) Ferritin 195 ng/mL (26-388) Lactate Dehydrogenase 326 U/L (85-227) Haptoglobin 295 mg/dL (29-370) Test 05/05/20 23:32 05/06/20 06:30 05/06/20 06:33 05/06/20 07:32 Glucose (Fingerstick) 283 mg/dL (70-99) 299 mg/dL (70-99) White Blood Count 12.5 x10^3/uL (4.0-11.0) Red Blood Count 4.23 x10^6/uL (4.30-5.70) Hemoglobin 11.5 g/dL (13.0-17.5) Hematocrit 34.4 % (39.0-53.0) Mean Corpuscular Volume 81 fL (79-100) Mean Corpuscular Hemoglobin 27 pg (25-35) Mean Corpuscular Hemoglobin Concent 34 g/dL (31-37) Red Cell Distribution Width 19.0 % (11.5-14.5) Platelet Count 79 x10^3/uL (140-400) Neutrophils (%) (Auto) 92 % (31-73) Lymphocytes (%) (Auto) 5 % (24-48) Monocytes (%) (Auto) 3 % (0-9) Eosinophils (%) (Auto) 0 % (0-3) Basophils (%) (Auto) 0 % (0-3) Neutrophils # (Auto) 11.5 x10^3/uL (1.8-7.7) Lymphocytes # (Auto) 0.6 x10^3/uL (1.0-4.8) Monocytes # (Auto) 0.3 x10^3/uL (0.0-1.1) Eosinophils # (Auto) 0.0 x10^3/uL (0.0-0.7) Basophils # (Auto) 0.0 x10^3/uL (0.0-0.2) Sodium Level 127 mmol/L (136-145) Potassium Level 3.8 mmol/L (3.5-5.1) Chloride Level 89 mmol/L (98-107) Carbon Dioxide Level 28 mmol/L (21-32) Anion Gap 10 (6-14) Blood Urea Nitrogen 86 mg/dL (8-26) Creatinine 2.7 mg/dL (0.7-1.3) Estimated GFR (Cockcroft-Gault) 24.3 Glucose Level 301 mg/dL (70-99) Calcium Level 7.6 mg/dL (8.5-10.1) O2 Saturation 95 % (92-99) Arterial Blood pH 7.58 (7.35-7.45) Arterial Blood pCO2 at Patient Temp 26 mmHg (35-46) Arterial Blood pO2 at Patient Temp 77 mmHg (65-108) Arterial Blood HCO3 24 mmol/L (21-28) Arterial Blood Base Excess 3 mmol/L (-3-3) FiO2 40 vent Results All relevant outside records, renal labs, imaging studies, telemetry/EKG's were reviewed. Justicifation of Admission Dx: Justifications for Admission: Justification of Admission Dx: N/A LEYDI MOSLEY MD May 06, 2020 09:03
--- NOTE | 2020-05-06 09:05 | PDOC ---
Provider Note Date of Service: DATE: 05/06/20 TIME: 09:07 Provider Note no temp, bp and output better- renal albs mildly better, glucose up- ID of e coli pending- add more lantus, rest same Justifications for Admission Other Justification MARGARET DUDLEY MD May 06, 2020 09:05
[2020-05-06] MEDS ORDERED: INSULIN GLARGINE SYRINGE. SQ SCH (10:00)
[2020-05-06] MEDS: fentaNYL PF VIAL 100 MCG/2 ML VIAL IVP PRN ×2 (11:00→16:23)
--- NOTE | 2020-05-06 11:14 | PDOC ---
PULMONARY PROGRESS NOTES DATE: 05/06/20 TIME: 11:10 Subjective remains intubated/sedated AC mode Vitals Vital Signs Date Time Temp Pulse Resp B/P (MAP) Pulse Ox O2 Delivery O2 Flow Rate FiO2 05/06/20 09:00 68 22 128/56 (80) 97 Ventilator 05/06/20 04:00 99.4 99.4 Lungs: Clear Cardiovascular: S1 Abdomen: Soft, Other (obese) Extremities: Other (1+edema) Labs Laboratory Tests Test 05/04/20 11:13 05/04/20 11:20 05/04/20 12:04 05/04/20 13:44 Urine Collection Type Unknown Urine Color Luisa Urine Clarity Cloudy Urine pH 7.0 (<5.0-8.0) Urine Specific [place] 1.020 (1.000-1.030) Urine Protein 100 mg/dL (NEG-TRACE) Urine Glucose (UA) Negative mg/dL (NEG) Urine Ketones (Stick) Trace mg/dL (NEG) Urine Blood Large (NEG) Urine Nitrite Negative (NEG) Urine Bilirubin Small (NEG) Urine Urobilinogen Dipstick 1.0 mg/dL (0.2 mg/dL) Urine Leukocyte Esterase Large (NEG) Urine RBC 20-40 /HPF (0-2) Urine WBC >40 /HPF (0-4) Urine Squamous Epithelial Cells Few /LPF Urine Bacteria Many /HPF (0-FEW) Urine Opiates Screen Pos (NEG) Urine Methadone Screen Neg (NEG) Urine Barbiturates Neg (NEG) Urine Phencyclidine Screen Neg (NEG) Urine Amphetamine/Methamphetamine Neg (NEG) Urine Benzodiazepines Screen Neg (NEG) Urine Cocaine Screen Neg (NEG) Urine Cannabinoids Screen Neg (NEG) Urine Ethyl Alcohol Neg (NEG) White Blood Count 0.7 x10^3/uL (4.0-11.0) Red Blood Count 4.68 x10^6/uL (4.30-5.70) Hemoglobin 13.2 g/dL (13.0-17.5) Hematocrit 38.8 % (39.0-53.0) Mean Corpuscular Volume 83 fL (79-100) Mean Corpuscular Hemoglobin 28 pg (25-35) Mean Corpuscular Hemoglobin Concent 34 g/dL (31-37) Red Cell Distribution Width 19.3 % (11.5-14.5) Platelet Count 86 x10^3/uL (140-400) Neutrophils (%) (Auto) 37 % (31-73) Lymphocytes (%) (Auto) 14 % (24-48) Monocytes (%) (Auto) 49 % (0-9) Eosinophils (%) (Auto) 0 % (0-3) Basophils (%) (Auto) 0 % (0-3) Neutrophils # (Auto) 0.2 x10^3/uL (1.8-7.7) Lymphocytes # (Auto) 0.1 x10^3/uL (1.0-4.8) Monocytes # (Auto) 0.3 x10^3/uL (0.0-1.1) Eosinophils # (Auto) 0.0 x10^3/uL (0.0-0.7) Basophils # (Auto) 0.0 x10^3/uL (0.0-0.2) Segmented Neutrophils % 31 % (35-66) Band Neutrophils % 5 % (0-9) Lymphocytes % 17 % (24-48) Monocytes % 45 % (0-10) Eosinophils % 1 % (0-5) Basophils % 1 % (0-3) Toxic Granulation Marked Toxic Vacuolation Marked Platelet Estimate Decreased (ADEQUATE) Sodium Level 119 mmol/L (136-145) Potassium Level 5.6 mmol/L (3.5-5.1) Chloride Level 85 mmol/L (98-107) Carbon Dioxide Level 19 mmol/L (21-32) Anion Gap 15 (6-14) Blood Urea Nitrogen 92 mg/dL (8-26) Creatinine 3.4 mg/dL (0.7-1.3) Estimated GFR (Cockcroft-Gault) 18.6 BUN/Creatinine Ratio 27 (6-20) Glucose Level 154 mg/dL (70-99) Lactic Acid Level 3.1 mmol/L (0.4-2.0) Calcium Level 8.4 mg/dL (8.5-10.1) Total Bilirubin 1.8 mg/dL (0.2-1.0) Aspartate Amino Transf (AST/SGOT) 117 U/L (15-37) Alanine Aminotransferase (ALT/SGPT) 101 U/L (16-63) Alkaline Phosphatase 256 U/L (46-116) Ammonia < 10 mcmol/L (11-34) Creatine Kinase 1234 U/L (39-308) Troponin I Quantitative < 0.017 ng/mL (0.000-0.055) DE-Upd-C-Type Natriuretic Peptide 6764 pg/mL (0-124) Total Protein 6.4 g/dL (6.4-8.2) Albumin 2.5 g/dL (3.4-5.0) Albumin/Globulin Ratio 0.6 (1.0-1.7) Lipase 361 U/L (73-393) Ethyl Alcohol Level < 10 mg/dL (0-10) O2 Saturation 94 % (92-99) Arterial Blood pH 7.33 (7.35-7.45) Arterial Blood pCO2 at Patient Temp 34 mmHg (35-46) Arterial Blood pO2 at Patient Temp 75 mmHg (65-108) Arterial Blood HCO3 18 mmol/L (21-28) Arterial Blood Base Excess -7 mmol/L (-3-3) FiO2 40%/ 5lnc Coronavirus (PCR) Not detected (Not Detected) SARS-CoV-2 Antigen (Rapid) Negative (NEGATIVE) Test 05/04/20 14:45 05/04/20 16:39 05/04/20 17:05 05/04/20 19:38 Lactic Acid Level 3.1 mmol/L (0.4-2.0) Glucose (Fingerstick) 120 mg/dL (70-99) O2 Saturation 91 % (92-99) 98 % (92-99) Arterial Blood pH 7.20 (7.35-7.45) 7.18 (7.35-7.45) Arterial Blood pCO2 at Patient Temp 54 mmHg (35-46) 53 mmHg (35-46) Arterial Blood pO2 at Patient Temp 74 mmHg (65-108) 121 mmHg (65-108) Arterial Blood HCO3 21 mmol/L (21-28) 19 mmol/L (21-28) Arterial Blood Base Excess -8 mmol/L (-3-3) -9 mmol/L (-3-3) FiO2 50 100 Test 05/04/20 22:05 05/05/20 05:25 05/05/20 08:00 05/05/20 11:47 Sodium Level 117 mmol/L (136-145) 119 mmol/L (136-145) Potassium Level 5.1 mmol/L (3.5-5.1) 4.7 mmol/L (3.5-5.1) Chloride Level 86 mmol/L (98-107) 87 mmol/L (98-107) Carbon Dioxide Level 19 mmol/L (21-32) 22 mmol/L (21-32) Anion Gap 12 (6-14) 10 (6-14) Blood Urea Nitrogen 90 mg/dL (8-26) 94 mg/dL (8-26) Creatinine 4.1 mg/dL (0.7-1.3) 3.7 mg/dL (0.7-1.3) Estimated GFR (Cockcroft-Gault) 15.0 16.9 Glucose Level 210 mg/dL (70-99) 236 mg/dL (70-99) Calcium Level 8.1 mg/dL (8.5-10.1) 7.7 mg/dL (8.5-10.1) White Blood Count 16.2 x10^3/uL (4.0-11.0) Red Blood Count 4.17 x10^6/uL (4.30-5.70) Hemoglobin 11.4 g/dL (13.0-17.5) Hematocrit 34.6 % (39.0-53.0) Mean Corpuscular Volume 82 fL (79-100) Mean Corpuscular Hemoglobin 27 pg (25-35) Mean Corpuscular Hemoglobin Concent 33 g/dL (31-37) Red Cell Distribution Width 18.9 % (11.5-14.5) Platelet Count 78 x10^3/uL (140-400) Neutrophils (%) (Auto) 87 % (31-73) Lymphocytes (%) (Auto) 3 % (24-48) Monocytes (%) (Auto) 5 % (0-9) Eosinophils (%) (Auto) 5 % (0-3) Basophils (%) (Auto) 0 % (0-3) Neutrophils # (Auto) 14.1 x10^3/uL (1.8-7.7) Lymphocytes # (Auto) 0.5 x10^3/uL (1.0-4.8) Monocytes # (Auto) 0.9 x10^3/uL (0.0-1.1) Eosinophils # (Auto) 0.8 x10^3/uL (0.0-0.7) Basophils # (Auto) 0.1 x10^3/uL (0.0-0.2) Segmented Neutrophils % 79 % (35-66) Band Neutrophils % 9 % (0-9) Lymphocytes % 6 % (24-48) Monocytes % 6 % (0-10) Toxic Granulation Present Toxic Vacuolation Present Platelet Estimate Decreased (ADEQUATE) Large Platelets Present Absolute Reticulocyte Count 0.058 x10^6/uL (0.020-0.120) Percent Reticulocyte Count 1.4 % (0.5-2.3) Immature Reticulocyte Fraction 0.59 (0.20-0.60) Phosphorus Level 4.8 mg/dL (2.6-4.7) Magnesium Level 2.0 mg/dL (1.8-2.4) Iron Level 12 ug/dL (65-175) Total Iron Binding Capacity 242 ug/dL (250-450) Iron Saturation 5 % (15-34) Creatine Kinase 750 U/L (39-308) Vitamin B12 Level > 2000 pg/mL (247-911) O2 Saturation 96 % (92-99) Arterial Blood pH 7.46 (7.35-7.45) Arterial Blood pCO2 at Patient Temp 32 mmHg (35-46) Arterial Blood pO2 at Patient Temp 80 mmHg (65-108) Arterial Blood HCO3 22 mmol/L (21-28) Arterial Blood Base Excess -1 mmol/L (-3-3) FiO2 60% vent Glucose (Fingerstick) 248 mg/dL (70-99) Test 05/05/20 12:00 05/05/20 13:10 05/05/20 18:20 05/05/20 23:32 Sodium Level 123 mmol/L (136-145) Potassium Level 4.1 mmol/L (3.5-5.1) Chloride Level 87 mmol/L (98-107) Carbon Dioxide Level 24 mmol/L (21-32) Anion Gap 12 (6-14) Blood Urea Nitrogen 94 mg/dL (8-26) Creatinine 3.5 mg/dL (0.7-1.3) Estimated GFR (Cockcroft-Gault) 18.0 Glucose Level 243 mg/dL (70-99) Uric Acid 10.1 mg/dL (3.5-7.2) Calcium Level 7.6 mg/dL (8.5-10.1) Ferritin 195 ng/mL (26-388) Lactate Dehydrogenase 326 U/L (85-227) Haptoglobin 295 mg/dL (29-370) Glucose (Fingerstick) 289 mg/dL (70-99) 283 mg/dL (70-99) Test 05/06/20 06:30 05/06/20 06:33 05/06/20 07:32 White Blood Count 12.5 x10^3/uL (4.0-11.0) Red Blood Count 4.23 x10^6/uL (4.30-5.70) Hemoglobin 11.5 g/dL (13.0-17.5) Hematocrit 34.4 % (39.0-53.0) Mean Corpuscular Volume 81 fL (79-100) Mean Corpuscular Hemoglobin 27 pg (25-35) Mean Corpuscular Hemoglobin Concent 34 g/dL (31-37) Red Cell Distribution Width 19.0 % (11.5-14.5) Platelet Count 79 x10^3/uL (140-400) Neutrophils (%) (Auto) 92 % (31-73) Lymphocytes (%) (Auto) 5 % (24-48) Monocytes (%) (Auto) 3 % (0-9) Eosinophils (%) (Auto) 0 % (0-3) Basophils (%) (Auto) 0 % (0-3) Neutrophils # (Auto) 11.5 x10^3/uL (1.8-7.7) Lymphocytes # (Auto) 0.6 x10^3/uL (1.0-4.8) Monocytes # (Auto) 0.3 x10^3/uL (0.0-1.1) Eosinophils # (Auto) 0.0 x10^3/uL (0.0-0.7) Basophils # (Auto) 0.0 x10^3/uL (0.0-0.2) Sodium Level 127 mmol/L (136-145) Potassium Level 3.8 mmol/L (3.5-5.1) Chloride Level 89 mmol/L (98-107) Carbon Dioxide Level 28 mmol/L (21-32) Anion Gap 10 (6-14) Blood Urea Nitrogen 86 mg/dL (8-26) Creatinine 2.7 mg/dL (0.7-1.3) Estimated GFR (Cockcroft-Gault) 24.3 Glucose Level 301 mg/dL (70-99) Calcium Level 7.6 mg/dL (8.5-10.1) Glucose (Fingerstick) 299 mg/dL (70-99) O2 Saturation 95 % (92-99) Arterial Blood pH 7.58 (7.35-7.45) Arterial Blood pCO2 at Patient Temp 26 mmHg (35-46) Arterial Blood pO2 at Patient Temp 77 mmHg (65-108) Arterial Blood HCO3 24 mmol/L (21-28) Arterial Blood Base Excess 3 mmol/L (-3-3) FiO2 40 vent Laboratory Tests Test 05/05/20 11:47 05/05/20 12:00 05/05/20 13:10 05/05/20 18:20 Glucose (Fingerstick) 248 mg/dL (70-99) 289 mg/dL (70-99) Sodium Level 123 mmol/L (136-145) Potassium Level 4.1 mmol/L (3.5-5.1) Chloride Level 87 mmol/L (98-107) Carbon Dioxide Level 24 mmol/L (21-32) Anion Gap 12 (6-14) Blood Urea Nitrogen 94 mg/dL (8-26) Creatinine 3.5 mg/dL (0.7-1.3) Estimated GFR (Cockcroft-Gault) 18.0 Glucose Level 243 mg/dL (70-99) Uric Acid 10.1 mg/dL (3.5-7.2) Calcium Level 7.6 mg/dL (8.5-10.1) Ferritin 195 ng/mL (26-388) Lactate Dehydrogenase 326 U/L (85-227) Haptoglobin 295 mg/dL (29-370) Test 05/05/20 23:32 05/06/20 06:30 05/06/20 06:33 05/06/20 07:32 Glucose (Fingerstick) 283 mg/dL (70-99) 299 mg/dL (70-99) White Blood Count 12.5 x10^3/uL (4.0-11.0) Red Blood Count 4.23 x10^6/uL (4.30-5.70) Hemoglobin 11.5 g/dL (13.0-17.5) Hematocrit 34.4 % (39.0-53.0) Mean Corpuscular Volume 81 fL (79-100) Mean Corpuscular Hemoglobin 27 pg (25-35) Mean Corpuscular Hemoglobin Concent 34 g/dL (31-37) Red Cell Distribution Width 19.0 % (11.5-14.5) Platelet Count 79 x10^3/uL (140-400) Neutrophils (%) (Auto) 92 % (31-73) Lymphocytes (%) (Auto) 5 % (24-48) Monocytes (%) (Auto) 3 % (0-9) Eosinophils (%) (Auto) 0 % (0-3) Basophils (%) (Auto) 0 % (0-3) Neutrophils # (Auto) 11.5 x10^3/uL (1.8-7.7) Lymphocytes # (Auto) 0.6 x10^3/uL (1.0-4.8) Monocytes # (Auto) 0.3 x10^3/uL (0.0-1.1) Eosinophils # (Auto) 0.0 x10^3/uL (0.0-0.7) Basophils # (Auto) 0.0 x10^3/uL (0.0-0.2) Sodium Level 127 mmol/L (136-145) Potassium Level 3.8 mmol/L (3.5-5.1) Chloride Level 89 mmol/L (98-107) Carbon Dioxide Level 28 mmol/L (21-32) Anion Gap 10 (6-14) Blood Urea Nitrogen 86 mg/dL (8-26) Creatinine 2.7 mg/dL (0.7-1.3) Estimated GFR (Cockcroft-Gault) 24.3 Glucose Level 301 mg/dL (70-99) Calcium Level 7.6 mg/dL (8.5-10.1) O2 Saturation 95 % (92-99) Arterial Blood pH 7.58 (7.35-7.45) Arterial Blood pCO2 at Patient Temp 26 mmHg (35-46) Arterial Blood pO2 at Patient Temp 77 mmHg (65-108) Arterial Blood HCO3 24 mmol/L (21-28) Arterial Blood Base Excess 3 mmol/L (-3-3) FiO2 40 vent Medications Active Scripts Medications Dose Route/Sig Max Daily Dose Days Date Category [Fluconazole] 100 MG Tablet 200 Mg PO DAILY 10 5/13/20 Rx Amox Tr-K Clv 875-125 Mg Tab (Amoxicillin/Potassium Clav) 1 Each Tablet 1 Tab PO BID 10 07/17/19 Rx Hydrocodone-Acetamin 5-325 mg (Hydrocodone/Acetaminophen) 1 Each Tablet 1 Each PO PRN Q6HRS PRN 03/14/19 Reported Diclofenac Sodium 75 Mg Tablet.dr 1 Tab PO BID 03/14/19 Reported Amlodipine Besylate 5 Mg Tablet 5 Mg PO DAILY 03/14/19 Reported Furosemide 40 Mg Tablet 1 Tab PO DAILY 03/14/19 Reported Lisinopril 30 Mg Tablet 1 Tab PO DAILY 03/14/19 Reported Actos (Pioglitazone Hcl) 30 Mg Tablet 1 Tab PO DAILY 01/31/18 Reported Impression . 1. Acute hypoxic respiratory failure secondary to acute encephalopathy and acute rhabdomyolysis along with metabolic acidosis. 2. Acute rhabdomyolysis from fall, details not available. Urine drug screen also positive for opiates. Currently on a bicarbonate drip. Metabolic acidosis improving. CK will need to be repeated. 3. Bilateral interstitial infiltrates, likely suspect interstitial edema. 4. Leukopenia, which is now resolved and has leukocytosis, neg COVID. 5. Acute kidney injury secondary to rhabdomyolysis. 6. Hyponatremia. Plan . 1. Continue present assist control mode. We will make changes based on ABGs. We will reduce the rate today. 2. Wean FiO2. 3. Bicarb drip and IV hydration per Renal. 4. Monitor renal function. 5. Empiric antibiotic per ID. 6. Follow Neurology recommendation. 7. DVT prophylaxis. 8. Stress ulcer prophylaxis. 9. Discussed with RN and RT. Chart reviewed, imaging studies reviewed, labs reviewed. will start weaning sedation today. possible CPAP trial in am Critical care time 30 minutes. ASAD BISHOP MD May 06, 2020 11:14
[2020-05-06] MEDS ORDERED: fentaNYL PF VIAL 100 MCG/2 ML VIAL ONE ×2 (11:35→11:40)
[2020-05-06] MEDS: PIPERACILLIN/TAZOBACTAM 3.375 GM in IV NORMAL SALINE 50ML 50 ML IV SCH ×3 (12:19→23:51)
[2020-05-06] MEDS: NOREPINEPHRINE VIAL 32 MG in IV DEXTROSE 5% 250 ML IV PRN (14:08)
--- NOTE | 2020-05-06 15:15 | NUR ---
SS following up with discharge planning. SS reviewed pt chart and discussed with pt RN. Pt is currently on the vent at 40%. COVID19 negative. Pt on IV Zosyn and Levophed. Tube feeds. SS will continue to follow for discharge planning.
[2020-05-06 17:10] LABS: LAMBDA FREE 42.2 mg/L (5.7-26.3)
[2020-05-06] MEDS: FAMOTIDINE 20 MG/2 ML VIAL IVP SCH (21:06)
[2020-05-07] VITALS (27 sets, daily range): BP systolic 95–176; BP diastolic 47–68
[2020-05-07] MEDS: fentaNYL PF VIAL 100 MCG/2 ML VIAL IVP PRN ×2 (03:50→07:16)
[2020-05-07] MEDS: HEPARIN for SUB-Q USE 5,000 UNIT/ML VIAL. SQ SCH ×3 (06:35→22:06)
[2020-05-07] MEDS: PIPERACILLIN/TAZOBACTAM 3.375 GM in IV NORMAL SALINE 50ML 50 ML IV SCH ×3 (06:36→17:40)
[2020-05-07] MEDS: INSULIN LISPRO 300 UNITS/3 ML VIAL. SQ SCH ×3 (06:37→17:44)
--- NOTE | 2020-05-07 07:20 | PDOC ---
Provider Note Date of Service: DATE: 05/07/20 TIME: 07:18 Provider Note still intubated- no temp, better output- glucose still > 200, got > 60 u insilin 05/06- urine/blood cults show e coli, sens. pending- will increase lantus, cont zosyn , renal labs better as acidosis gone- Justifications for Admission Other Justification MARGARET DUDLEY MD May 07, 2020 07:20
[2020-05-07 07:25] LABS: ALBUMIN 1.5 g/dL (3.4-5.0); CALCIUM 8.3 mg/dL (8.5-10.1); CREATININE 1.9 mg/dL (0.7-1.3); GFR 36.5
[2020-05-07 07:28] LABS: BASE EXCESS ABG 5 mmol/L (-3-3); HCO3 ABG 29 mmol/L (21-28); PCO2 ABG 38 mmHg (35-46); PO2 ABG 229 mmHg (65-108); SAT O2 ABG 99 % (92-99)
[2020-05-07 07:29] LABS: FIO2 ABG 100 VENT
--- NOTE | 2020-05-07 07:34 | RAD ---
XR CHEST 1V INDICATION: Reason: on vent 102 / Spl. Instructions: / History: . COMPARISON STUDY: None. FINDINGS: Life Support Devices: Stable life support devices. Lungs: Normal lung volume. No focal airspace disease. Normal pulmonary vasculature. Pleura: No pleural effusion or pneumothorax. Heart and Mediastinum: Stable cardiomediastinal silhouette and great vessels. Bones and Soft Tissues: Stable regional skeleton and soft tissues. IMPRESSION: No acute cardiopulmonary process. XR CHEST 1V INDICATION: on vent 102 COMPARISON STUDY: 05/04/2020. FINDINGS: Life Support Devices: Stable endotracheal tube, enteric tube. Lungs: Normal lung volume. Increasing hazy bibasilar opacities. Pleura: Increased moderate bilateral pleural effusions. Heart and Mediastinum: Stable cardiomediastinal silhouette and great vessels. Bones and Soft Tissues: Stable regional skeleton and soft tissues. IMPRESSION: 1. Stable left support devices. 2. Increased moderate bilateral pleural effusions. 3. Increased hazy bibasilar opacities, probably layering pleural fluid. Electronically signed by: Camron Thorpe MD (05/07/2020 7:31 AM) [id number]
--- NOTE | 2020-05-07 07:39 | PDOC ---
Infectious Disease Note Subjective Subjective pt is intubated on vent ROS ROS no n/v/d/ Vital Sign Vital Signs Vital Signs Date Time Temp Pulse Resp B/P (MAP) Pulse Ox O2 Delivery O2 Flow Rate FiO2 05/07/20 07:16 93 Ventilator 05/07/20 07:00 64 16 176/66 (102) 05/07/20 04:00 98.1 98.1 Physical Exam PHYSICAL EXAM GENERAL: Sedated, orally intubated gentleman, not in any distress. VITAL SIGNS: stable HEENT: Both pupils are round and reacting. No conjunctival lesion. Orally intubated, unable to see the mouth. NECK: Supple, no JVP, no lymphadenopathy. LUNGS: Decreased breath sounds. HEART: S1, S2 regular. No gallop or murmur. ABDOMEN: Soft, nontender, no organomegaly. EXTREMITIES: No edema or cyanosis. SKIN: Unremarkable. 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 Labs Lab Laboratory Tests Test 05/06/20 12:24 05/06/20 17:49 05/06/20 23:45 05/07/20 06:20 Glucose (Fingerstick) 280 mg/dL (70-99) 313 mg/dL (70-99) 319 mg/dL (70-99) Sodium Level 133 mmol/L (136-145) Potassium Level 4.0 mmol/L (3.5-5.1) Chloride Level 95 mmol/L (98-107) Carbon Dioxide Level 30 mmol/L (21-32) Anion Gap 8 (6-14) Blood Urea Nitrogen 72 mg/dL (8-26) Creatinine 1.9 mg/dL (0.7-1.3) Estimated GFR (Cockcroft-Gault) 36.5 Glucose Level 260 mg/dL (70-99) Calcium Level 8.3 mg/dL (8.5-10.1) Albumin 1.5 g/dL (3.4-5.0) Test 05/07/20 06:33 05/07/20 07:24 Glucose (Fingerstick) 276 mg/dL (70-99) O2 Saturation 99 % (92-99) Arterial Blood pH 7.50 (7.35-7.45) Arterial Blood pCO2 at Patient Temp 38 mmHg (35-46) Arterial Blood pO2 at Patient Temp 229 mmHg (65-108) Arterial Blood HCO3 29 mmol/L (21-28) Arterial Blood Base Excess 5 mmol/L (-3-3) FiO2 100 vent Micro BC E coli Urine E coli Objective Assessment IMPRESSION: 1. Encephalopathy. 2. Leukopenia, from sepsis , now leukocytosis 3. Respiratory failure. 4. Hyponatremia. 5. Acute kidney injury. 6. Circulatory failure. 7. Obesity. 8. COVID neg 9 G neg selvin sepsis/ E coli 10 UTI with sepsis Plan Plan of Care 1. Continue supportive care. 2. Hydration. 3. cont Zosyn. 4. We will follow the blood cultures and also obtain urine culture, supportive care and we will continue to follow. will need ct abd , will wait for cr to improve CURT POST MD May 07, 2020 07:39
[2020-05-07 08:11] LABS: ALBUMIN 1.5 g/dL (3.4-5.0); DIRECT BILIRUBIN 2.2 mg/dL (0.0-0.2); TOTAL BILIRUBIN 2.6 mg/dL (0.2-1.0); TOTAL PROTEIN 6.1 g/dL (6.4-8.2)
[2020-05-07] MEDS: INSULIN GLARGINE SYRINGE. SQ SCH (09:02)
[2020-05-07] MEDS: PROPOFOL 100 ML IV PRN ×3 (09:39→22:02)
--- NOTE | 2020-05-07 09:46 | PDOC ---
DATE OF SERVICE DATE: 05/07/20 TIME: 09:38 SUBJECTIVE ROS Remains intubated, sedated OBJECTIVE Vital Signs Vital Signs Date Time Temp Pulse Resp B/P (MAP) Pulse Ox O2 Delivery O2 Flow Rate FiO2 05/07/20 09:00 69 16 170/66 (100) 99 Ventilator 05/07/20 08:00 97.5 97.5 I & 0 Intake and Output 05/07/20 07:00 Intake Total 2919 ml Output Total 5475 ml Balance -2556 ml IV Total 875 ml Tube Feeding 1544 ml Other 500 ml Output Urine Total 5475 ml # Bowel Movements 1 PHYSICAL EXAM Physical Exam GENERAL: Sedated, not in any distress. HEENT: Both pupils are round and reacting. Orally intubated NECK: Supple, LUNGS: Decreased breath sounds. HEART: S1, S2 regular. No gallop or murmur. ABDOMEN: Soft, obese EXTREMITIES: Bilat LE edema 2-3+ SKIN: Unremarkable, No Rash NEUROLOGIC:sedated, orally intubated, moving all the extremities before intubation per the ENRICO Duggan present PSYCH Unable to assess DIAGNOSIS/ASSESSMENT Assessment & Plan AUGUSTINE - Currently Non Oliguric , ATN, sepsis , renal function improving Monitor for Polyuria , Avoid nephrotoxins HypoNatremia - improving Metabolic Acidosis POA - resolved Sepsis- Gram negative rods UTI - E Coli on culture, defer to ID Elevated LFT's Rhabdo- minimally elevated CK Acute hypoxic respiratory failure secondary to acute encephalopathy . Cxr 4/3 Increased moderate bilateral pleural effusions. Increased hazy bibasilar opacities, probably layering pleural fluid. Encephalopathy. Severe Hypoalbumniemia - currently on TF Leukopenia POA - resolved, now Leukocytosis Thrombocytopenia - hem/Onc consulted, K/L mildly elevated . SPEP pending COMMENT/RELEVANT DATA Meds Current Medications Medications (Trade) Dose Ordered Sig/Triny Start Time Stop Time Status Last Admin Dose Admin Ceftriaxone Sodium (Rocephin) 1 gm 1X ONCE 05/04/20 11:45 05/04/20 11:46 DC 05/04/20 11:33 1 GM Daptomycin 700 mg/ Sodium Chloride 50 ml @ 100 mls/hr Q48H 05/05/20 09:00 05/06/20 09:09 DC 05/05/20 08:42 100 MLS/HR Dextrose (Dextrose 50%-Water Syringe) 12.5 gm PRN Q15MIN PRN 3/2/21 09:15 Etomidate (Amidate) 20 mg STK-MED ONCE 05/04/20 18:00 05/05/20 12:28 DC Famotidine (Pepcid Vial) 20 mg QHS 05/05/20 21:00 05/06/20 21:06 20 MG Fentanyl Citrate (Fentanyl 2ml Vial) 100 mcg STK-MED ONCE 05/06/20 11:40 05/07/20 08:51 DC Heparin Sodium (Porcine) (Heparin Sodium) 5,000 unit Q8HRS 05/05/20 14:00 05/07/20 06:35 5,000 UNIT Insulin Glargine (Lantus Syringe) 60 unit DAILY 05/07/20 09:00 05/07/20 09:02 60 UNIT Insulin Human Lispro (HumaLOG) 0-7 UNITS Q6HRS 05/05/20 12:00 05/07/20 06:37 6 UNITS Midazolam HCl 100 ml @ 0 mls/hr CONT PRN 05/04/20 18:15 05/06/20 19:09 5 MLS/HR Naloxone HCl (Narcan) 0.4 mg 1X ONCE 05/04/20 17:00 05/04/20 17:01 DC 05/04/20 17:00 0.4 MG Norepinephrine Bitartrate 32 mg/ Dextrose 282 ml @ 9.65 mls/hr CONT PRN 05/04/20 18:15 05/06/20 14:08 12.6 MLS/HR Norepinephrine Bitartrate 8 mg/ Dextrose 258 ml @ 35.314 mls/ hr CONT PRN 05/04/20 17:00 05/04/20 18:09 DC 05/04/20 17:00 35.314 MLS/HR Phenylephrine HCl (PHENYLEPHRINE in 0.9% NACL PF) 1 mg STK-MED ONCE 05/04/20 18:00 05/05/20 12:11 DC Piperacillin Sod/ Tazobactam Sod 2.25 gm/Sodium Chloride 50 ml @ 100 mls/hr Q6HRS 05/05/20 08:00 05/06/20 08:39 DC 05/06/20 06:36 100 MLS/HR Piperacillin Sod/ Tazobactam Sod 3.375 gm/Sodium Chloride 50 ml @ 100 mls/hr Q6HRS 05/06/20 12:00 05/07/20 06:36 100 MLS/HR Propofol 100 ml @ 5.247 mls/ hr CONT PRN 05/07/20 09:30 Propofol (Diprivan) 1,000 mg STK-MED ONCE 05/04/20 18:00 05/05/20 12:28 DC Rocuronium [place] (Zemuron) 50 mg STK-MED ONCE 05/04/20 18:00 05/05/20 12:28 DC Sodium Bicarbonate 150 meq/Dextrose 1,150 ml @ 150 mls/hr Q7H40M 05/04/20 18:30 05/06/20 16:49 DC 05/06/20 07:44 150 MLS/HR Sodium Chloride 1,000 ml @ 1,000 mls/hr 1X ONCE 05/04/20 11:45 05/04/20 12:44 DC 05/04/20 11:32 1,000 MLS/HR Succinylcholine Chloride (Anectine) 200 mg STK-MED ONCE 05/04/20 18:00 05/05/20 12:28 DC Lab Laboratory Tests Test 05/06/20 12:24 05/06/20 17:49 05/06/20 23:45 05/07/20 06:20 Glucose (Fingerstick) 280 mg/dL (70-99) 313 mg/dL (70-99) 319 mg/dL (70-99) Sodium Level 133 mmol/L (136-145) Potassium Level 4.0 mmol/L (3.5-5.1) Chloride Level 95 mmol/L (98-107) Carbon Dioxide Level 30 mmol/L (21-32) Anion Gap 8 (6-14) Blood Urea Nitrogen 72 mg/dL (8-26) Creatinine 1.9 mg/dL (0.7-1.3) Estimated GFR (Cockcroft-Gault) 36.5 Glucose Level 260 mg/dL (70-99) Calcium Level 8.3 mg/dL (8.5-10.1) Total Bilirubin 2.6 mg/dL (0.2-1.0) Direct Bilirubin 2.2 mg/dL (0.0-0.2) Aspartate Amino Transf (AST/SGOT) 186 U/L (15-37) Alanine Aminotransferase (ALT/SGPT) 165 U/L (16-63) Alkaline Phosphatase 354 U/L (46-116) Total Protein 6.1 g/dL (6.4-8.2) Albumin 1.5 g/dL (3.4-5.0) Test 05/07/20 06:33 05/07/20 07:24 Glucose (Fingerstick) 276 mg/dL (70-99) O2 Saturation 99 % (92-99) Arterial Blood pH 7.50 (7.35-7.45) Arterial Blood pCO2 at Patient Temp 38 mmHg (35-46) Arterial Blood pO2 at Patient Temp 229 mmHg (65-108) Arterial Blood HCO3 29 mmol/L (21-28) Arterial Blood Base Excess 5 mmol/L (-3-3) FiO2 100 vent Results All relevant outside records, renal labs, imaging studies, telemetry/EKG's were reviewed. Justicifation of Admission Dx: Justifications for Admission: Justification of Admission Dx: N/A LEYDI MOSLEY MD May 07, 2020 09:46
--- NOTE | 2020-05-07 10:09 | PDOC ---
PULMONARY PROGRESS NOTES DATE: 05/07/20 TIME: 10:03 Subjective remains intubated/off sedation increase R/R on CPAP trial AC mode Vitals Vital Signs Date Time Temp Pulse Resp B/P (MAP) Pulse Ox O2 Delivery O2 Flow Rate FiO2 05/07/20 09:00 69 16 170/66 (100) 99 Ventilator 05/07/20 08:00 97.5 97.5 General: Mild Distress Lungs: Clear Cardiovascular: S1 Abdomen: Soft, Other (obese) Extremities: Other (1+edema) Labs Laboratory Tests Test 05/05/20 11:47 05/05/20 12:00 05/05/20 13:10 05/05/20 18:20 Glucose (Fingerstick) 248 mg/dL (70-99) 289 mg/dL (70-99) Sodium Level 123 mmol/L (136-145) Potassium Level 4.1 mmol/L (3.5-5.1) Chloride Level 87 mmol/L (98-107) Carbon Dioxide Level 24 mmol/L (21-32) Anion Gap 12 (6-14) Blood Urea Nitrogen 94 mg/dL (8-26) Creatinine 3.5 mg/dL (0.7-1.3) Estimated GFR (Cockcroft-Gault) 18.0 Glucose Level 243 mg/dL (70-99) Uric Acid 10.1 mg/dL (3.5-7.2) Calcium Level 7.6 mg/dL (8.5-10.1) Ferritin 195 ng/mL (26-388) Lactate Dehydrogenase 326 U/L (85-227) Haptoglobin 295 mg/dL (29-370) Erythropoietin 54.9 mIU/mL (2.6-18.5) Immunoglobulin [place]/Lambda Ratio 1.80 (0.26-1.65) Free [place] Light Chains 76.0 mg/L (3.3-19.4) Free Lambda Light Chains 42.2 mg/L (5.7-26.3) Test 05/05/20 23:32 05/06/20 06:30 05/06/20 06:33 05/06/20 07:32 Glucose (Fingerstick) 283 mg/dL (70-99) 299 mg/dL (70-99) White Blood Count 12.5 x10^3/uL (4.0-11.0) Red Blood Count 4.23 x10^6/uL (4.30-5.70) Hemoglobin 11.5 g/dL (13.0-17.5) Hematocrit 34.4 % (39.0-53.0) Mean Corpuscular Volume 81 fL (79-100) Mean Corpuscular Hemoglobin 27 pg (25-35) Mean Corpuscular Hemoglobin Concent 34 g/dL (31-37) Red Cell Distribution Width 19.0 % (11.5-14.5) Platelet Count 79 x10^3/uL (140-400) Neutrophils (%) (Auto) 92 % (31-73) Lymphocytes (%) (Auto) 5 % (24-48) Monocytes (%) (Auto) 3 % (0-9) Eosinophils (%) (Auto) 0 % (0-3) Basophils (%) (Auto) 0 % (0-3) Neutrophils # (Auto) 11.5 x10^3/uL (1.8-7.7) Lymphocytes # (Auto) 0.6 x10^3/uL (1.0-4.8) Monocytes # (Auto) 0.3 x10^3/uL (0.0-1.1) Eosinophils # (Auto) 0.0 x10^3/uL (0.0-0.7) Basophils # (Auto) 0.0 x10^3/uL (0.0-0.2) Sodium Level 127 mmol/L (136-145) Potassium Level 3.8 mmol/L (3.5-5.1) Chloride Level 89 mmol/L (98-107) Carbon Dioxide Level 28 mmol/L (21-32) Anion Gap 10 (6-14) Blood Urea Nitrogen 86 mg/dL (8-26) Creatinine 2.7 mg/dL (0.7-1.3) Estimated GFR (Cockcroft-Gault) 24.3 Glucose Level 301 mg/dL (70-99) Calcium Level 7.6 mg/dL (8.5-10.1) O2 Saturation 95 % (92-99) Arterial Blood pH 7.58 (7.35-7.45) Arterial Blood pCO2 at Patient Temp 26 mmHg (35-46) Arterial Blood pO2 at Patient Temp 77 mmHg (65-108) Arterial Blood HCO3 24 mmol/L (21-28) Arterial Blood Base Excess 3 mmol/L (-3-3) FiO2 40 vent Test 05/06/20 12:24 05/06/20 17:49 05/06/20 23:45 05/07/20 06:20 Glucose (Fingerstick) 280 mg/dL (70-99) 313 mg/dL (70-99) 319 mg/dL (70-99) Sodium Level 133 mmol/L (136-145) Potassium Level 4.0 mmol/L (3.5-5.1) Chloride Level 95 mmol/L (98-107) Carbon Dioxide Level 30 mmol/L (21-32) Anion Gap 8 (6-14) Blood Urea Nitrogen 72 mg/dL (8-26) Creatinine 1.9 mg/dL (0.7-1.3) Estimated GFR (Cockcroft-Gault) 36.5 Glucose Level 260 mg/dL (70-99) Calcium Level 8.3 mg/dL (8.5-10.1) Total Bilirubin 2.6 mg/dL (0.2-1.0) Direct Bilirubin 2.2 mg/dL (0.0-0.2) Aspartate Amino Transf (AST/SGOT) 186 U/L (15-37) Alanine Aminotransferase (ALT/SGPT) 165 U/L (16-63) Alkaline Phosphatase 354 U/L (46-116) Total Protein 6.1 g/dL (6.4-8.2) Albumin 1.5 g/dL (3.4-5.0) Test 05/07/20 06:33 05/07/20 07:24 Glucose (Fingerstick) 276 mg/dL (70-99) O2 Saturation 99 % (92-99) Arterial Blood pH 7.50 (7.35-7.45) Arterial Blood pCO2 at Patient Temp 38 mmHg (35-46) Arterial Blood pO2 at Patient Temp 229 mmHg (65-108) Arterial Blood HCO3 29 mmol/L (21-28) Arterial Blood Base Excess 5 mmol/L (-3-3) FiO2 100 vent Laboratory Tests Test 05/06/20 12:24 05/06/20 17:49 05/06/20 23:45 05/07/20 06:20 Glucose (Fingerstick) 280 mg/dL (70-99) 313 mg/dL (70-99) 319 mg/dL (70-99) Sodium Level 133 mmol/L (136-145) Potassium Level 4.0 mmol/L (3.5-5.1) Chloride Level 95 mmol/L (98-107) Carbon Dioxide Level 30 mmol/L (21-32) Anion Gap 8 (6-14) Blood Urea Nitrogen 72 mg/dL (8-26) Creatinine 1.9 mg/dL (0.7-1.3) Estimated GFR (Cockcroft-Gault) 36.5 Glucose Level 260 mg/dL (70-99) Calcium Level 8.3 mg/dL (8.5-10.1) Total Bilirubin 2.6 mg/dL (0.2-1.0) Direct Bilirubin 2.2 mg/dL (0.0-0.2) Aspartate Amino Transf (AST/SGOT) 186 U/L (15-37) Alanine Aminotransferase (ALT/SGPT) 165 U/L (16-63) Alkaline Phosphatase 354 U/L (46-116) Total Protein 6.1 g/dL (6.4-8.2) Albumin 1.5 g/dL (3.4-5.0) Test 05/07/20 06:33 05/07/20 07:24 Glucose (Fingerstick) 276 mg/dL (70-99) O2 Saturation 99 % (92-99) Arterial Blood pH 7.50 (7.35-7.45) Arterial Blood pCO2 at Patient Temp 38 mmHg (35-46) Arterial Blood pO2 at Patient Temp 229 mmHg (65-108) Arterial Blood HCO3 29 mmol/L (21-28) Arterial Blood Base Excess 5 mmol/L (-3-3) FiO2 100 vent Medications Active Scripts Medications Dose Route/Sig Max Daily Dose Days Date Category [Fluconazole] 100 MG Tablet 200 Mg PO DAILY 07/17/19 Rx Amox Tr-K Clv 875-125 Mg Tab (Amoxicillin/Potassium Clav) 1 Each Tablet 1 Tab PO BID 07/17/19 Rx Hydrocodone-Acetamin 5-325 mg (Hydrocodone/Acetaminophen) 1 Each Tablet 1 Each PO PRN Q6HRS PRN 03/14/19 Reported Diclofenac Sodium 75 Mg Tablet.dr 1 Tab PO BID 03/14/19 Reported Amlodipine Besylate 5 Mg Tablet 5 Mg PO DAILY 03/14/19 Reported Furosemide 40 Mg Tablet 1 Tab PO DAILY 03/14/19 Reported Lisinopril 30 Mg Tablet 1 Tab PO DAILY 03/14/19 Reported Actos (Pioglitazone Hcl) 30 Mg Tablet 1 Tab PO DAILY 01/31/18 Reported Comments cxr 3/4 increase effusions Impression . 1. Acute hypoxic respiratory failure secondary to acute encephalopathy and acute rhabdomyolysis along with metabolic acidosis. 2. Acute rhabdomyolysis from fall, details not available. Urine drug screen also positive for opiates. Currently on a bicarbonate drip. Metabolic acidosis improving. CK will need to be repeated. 3. Bilateral interstitial infiltrates, likely suspect interstitial edema.now increase effusions 4. Leukopenia, which is now resolved and has leukocytosis, neg COVID. 5. Acute kidney injury secondary to rhabdomyolysis. 6. Hyponatremia. 7. E-Coli sepsis Plan . 1. Place back on AC mode Not ready yet 2. Wean FiO2. 3. off Bicarb drip . consider lasix in am, increase effusions 4. Monitor renal function. 5. Empiric antibiotic per ID. 6. Follow Neurology recommendation. 7. DVT prophylaxis. 8. Stress ulcer prophylaxis. 9. Discussed with RN and RT. Chart reviewed, imaging studies reviewed, labs reviewed.re sedate wit hpropofol. possible CPAP trial in am Critical care time 30 minutes. ASAD BISHOP MD May 07, 2020 10:09
--- NOTE | 2020-05-07 12:50 | PDOC ---
PROGRESS NOTES Date of Service DATE: 05/07/20 TIME: 12:46 Assessment Problems Medical Problems: (1) Acute kidney failure Status: Acute (2) Altered mental status Status: Acute (3) Hyperkalemia Status: Acute (4) Hyperuricemia Status: Acute (5) Lymphopenia Status: Acute (6) Respiratory failure with hypoxia Status: Acute Metabolic encephalopathy due to renal failure, respiratory failure, E-Coli sepsis, no evidence of primary neurological issue such as stroke, seizures, central nervous system infection. Rhabdomyolysis and leukopenia, improving Develop tachypnea on extubation attempt 05/06 Plan Treat medical diseases Holding off on additional neurological studies such as electroencephalogram Subjective None Objective Vital Signs Date Time Temp Pulse Resp B/P (MAP) Pulse Ox O2 Delivery O2 Flow Rate FiO2 05/07/20 12:00 Mechanical Ventilator 05/07/20 12:00 98.3 50 16 111/55 (73) 99 98.3 Intake and Output 05/07/20 07:00 Intake Total 2919 ml Output Total 5475 ml Balance -2556 ml IV Total 875 ml Tube Feeding 1544 ml Other 500 ml Output Urine Total 5475 ml # Bowel Movements 1 PHYSICAL EXAM Sedated, does respond to being moved PERRL. EOMI. CN: no focal findings. Muscle tone: normal. Muscle strength: Moves all extremities DTR: 0+ Plantar reflex: Flexor Gait: not examined in bed. Sensory exam: no abnormal findings. No cerebellar signs elicited. Review of Relevant I have reviewed the following items elina (where applicable) has been applied. Labs Laboratory Tests Test 05/05/20 13:10 05/05/20 18:20 05/05/20 23:32 05/06/20 06:30 Haptoglobin 295 mg/dL (29-370) Erythropoietin 54.9 mIU/mL (2.6-18.5) Immunoglobulin [place]/Lambda Ratio 1.80 (0.26-1.65) Free [place] Light Chains 76.0 mg/L (3.3-19.4) Free [place] Light Chains 42.2 mg/L (5.7-26.3) Glucose (Fingerstick) 289 mg/dL (70-99) 283 mg/dL (70-99) White Blood Count 12.5 x10^3/uL (4.0-11.0) Red Blood Count 4.23 x10^6/uL (4.30-5.70) Hemoglobin 11.5 g/dL (13.0-17.5) Hematocrit 34.4 % (39.0-53.0) Mean Corpuscular Volume 81 fL (79-100) Mean Corpuscular Hemoglobin 27 pg (25-35) Mean Corpuscular Hemoglobin Concent 34 g/dL (31-37) Red Cell Distribution Width 19.0 % (11.5-14.5) Platelet Count 79 x10^3/uL (140-400) Neutrophils (%) (Auto) 92 % (31-73) Lymphocytes (%) (Auto) 5 % (24-48) Monocytes (%) (Auto) 3 % (0-9) Eosinophils (%) (Auto) 0 % (0-3) Basophils (%) (Auto) 0 % (0-3) Neutrophils # (Auto) 11.5 x10^3/uL (1.8-7.7) Lymphocytes # (Auto) 0.6 x10^3/uL (1.0-4.8) Monocytes # (Auto) 0.3 x10^3/uL (0.0-1.1) Eosinophils # (Auto) 0.0 x10^3/uL (0.0-0.7) Basophils # (Auto) 0.0 x10^3/uL (0.0-0.2) Sodium Level 127 mmol/L (136-145) Potassium Level 3.8 mmol/L (3.5-5.1) Chloride Level 89 mmol/L (98-107) Carbon Dioxide Level 28 mmol/L (21-32) Anion Gap 10 (6-14) Blood Urea Nitrogen 86 mg/dL (8-26) Creatinine 2.7 mg/dL (0.7-1.3) Estimated GFR (Cockcroft-Gault) 24.3 Glucose Level 301 mg/dL (70-99) Calcium Level 7.6 mg/dL (8.5-10.1) Test 05/06/20 06:33 05/06/20 07:32 05/06/20 12:24 05/06/20 17:49 Glucose (Fingerstick) 299 mg/dL (70-99) 280 mg/dL (70-99) 313 mg/dL (70-99) O2 Saturation 95 % (92-99) Arterial Blood pH 7.58 (7.35-7.45) Arterial Blood pCO2 at Patient Temp 26 mmHg (35-46) Arterial Blood pO2 at Patient Temp 77 mmHg (65-108) Arterial Blood HCO3 24 mmol/L (21-28) Arterial Blood Base Excess 3 mmol/L (-3-3) FiO2 40 vent Test 05/06/20 23:45 05/07/20 06:20 05/07/20 06:33 05/07/20 07:24 Glucose (Fingerstick) 319 mg/dL (70-99) 276 mg/dL (70-99) Sodium Level 133 mmol/L (136-145) Potassium Level 4.0 mmol/L (3.5-5.1) Chloride Level 95 mmol/L (98-107) Carbon Dioxide Level 30 mmol/L (21-32) Anion Gap 8 (6-14) Blood Urea Nitrogen 72 mg/dL (8-26) Creatinine 1.9 mg/dL (0.7-1.3) Estimated GFR (Cockcroft-Gault) 36.5 Glucose Level 260 mg/dL (70-99) Calcium Level 8.3 mg/dL (8.5-10.1) Total Bilirubin 2.6 mg/dL (0.2-1.0) Direct Bilirubin 2.2 mg/dL (0.0-0.2) Aspartate Amino Transf (AST/SGOT) 186 U/L (15-37) Alanine Aminotransferase (ALT/SGPT) 165 U/L (16-63) Alkaline Phosphatase 354 U/L (46-116) Total Protein 6.1 g/dL (6.4-8.2) Albumin 1.5 g/dL (3.4-5.0) O2 Saturation 99 % (92-99) Arterial Blood pH 7.50 (7.35-7.45) Arterial Blood pCO2 at Patient Temp 38 mmHg (35-46) Arterial Blood pO2 at Patient Temp 229 mmHg (65-108) Arterial Blood HCO3 29 mmol/L (21-28) Arterial Blood Base Excess 5 mmol/L (-3-3) FiO2 100 vent Test 05/07/20 11:35 Glucose (Fingerstick) 247 mg/dL (70-99) Laboratory Tests Test 05/06/20 17:49 05/06/20 23:45 05/07/20 06:20 05/07/20 06:33 Glucose (Fingerstick) 313 mg/dL (70-99) 319 mg/dL (70-99) 276 mg/dL (70-99) Sodium Level 133 mmol/L (136-145) Potassium Level 4.0 mmol/L (3.5-5.1) Chloride Level 95 mmol/L (98-107) Carbon Dioxide Level 30 mmol/L (21-32) Anion Gap 8 (6-14) Blood Urea Nitrogen 72 mg/dL (8-26) Creatinine 1.9 mg/dL (0.7-1.3) Estimated GFR (Cockcroft-Gault) 36.5 Glucose Level 260 mg/dL (70-99) Calcium Level 8.3 mg/dL (8.5-10.1) Total Bilirubin 2.6 mg/dL (0.2-1.0) Direct Bilirubin 2.2 mg/dL (0.0-0.2) Aspartate Amino Transf (AST/SGOT) 186 U/L (15-37) Alanine Aminotransferase (ALT/SGPT) 165 U/L (16-63) Alkaline Phosphatase 354 U/L (46-116) Total Protein 6.1 g/dL (6.4-8.2) Albumin 1.5 g/dL (3.4-5.0) Test 05/07/20 07:24 05/07/20 11:35 O2 Saturation 99 % (92-99) Arterial Blood pH 7.50 (7.35-7.45) Arterial Blood pCO2 at Patient Temp 38 mmHg (35-46) Arterial Blood pO2 at Patient Temp 229 mmHg (65-108) Arterial Blood HCO3 29 mmol/L (21-28) Arterial Blood Base Excess 5 mmol/L (-3-3) FiO2 100 vent Glucose (Fingerstick) 247 mg/dL (70-99) Microbiology 05/04/20 Blood Culture - Final, Complete 05/04/20 Antimicrobic Susceptibility - Final, Complete 05/04/20 Urine Culture - Final, Complete 05/04/20 Antimicrobic Susceptibility - Final, Complete Medications Current Medications Sodium Chloride 1,000 ml @ 1,000 mls/hr 1X ONCE IV Last administered on 05/04/20at 11:32; Start 05/04/20 at 11:45; Stop 05/04/20 at 12:44; Status DC Ceftriaxone Sodium (Rocephin) 1 gm 1X ONCE IVP Last administered on 05/04/20at 11:33; Start 05/04/20 at 11:45; Stop 05/04/20 at 11:46; Status DC Norepinephrine Bitartrate 8 mg/ Dextrose 258 ml @ 35.314 mls/ hr CONT PRN IV PER PROTOCOL Last administered on 05/04/20at 17:00; Start 05/04/20 at 17:00; Stop 05/04/20 at 18:09; Status DC Naloxone HCl (Narcan) 0.4 mg 1X ONCE IV Last administered on 05/04/20at 17:00; Start 05/04/20 at 17:00; Stop 05/04/20 at 17:01; Status DC Propofol 0 ml @ As Directed STK-MED ONCE IV ; Start 05/04/20 at 17:20; Stop 05/04/20 at 17:20; Status DC Succinylcholine Chloride (Anectine) 200 mg STK-MED ONCE .ROUTE ; Start 05/04/20 at 17:20; Stop 05/04/20 at 17:20; Status DC Rocuronium [place] (Zemuron) 50 mg STK-MED ONCE .ROUTE ; Start 05/04/20 at 17:20; Stop 05/04/20 at 17:21; Status DC Etomidate (Amidate) 20 mg STK-MED ONCE IV ; Start 05/04/20 at 17:20; Stop 05/04/20 at 17:21; Status DC Sodium Bicarbonate 150 meq/Dextrose 1,150 ml @ 150 mls/hr Q7H40M IV Last administered on 05/06/20at 07:44; Start 05/04/20 at 18:30; Stop 05/06/20 at 16:49; Status DC Fentanyl Citrate 30 ml @ 0 mls/hr CONT PRN IV SEE PROTOCOL; Start 05/04/20 at 18:15 Midazolam HCl 100 ml @ 0 mls/hr CONT PRN IV SEE PROTOCOL Last administered on 05/06/20at 19:09; Start 05/04/20 at 18:15 Norepinephrine Bitartrate 32 mg/ Dextrose 282 ml @ 9.65 mls/hr CONT PRN IV PER PROTOCOL Last administered on 05/06/20at 14:08; Start 05/04/20 at 18:15 Piperacillin Sod/ Tazobactam Sod 2.25 gm/Sodium Chloride 50 ml @ 100 mls/hr Q6HRS IV Last administered on 05/06/20at 06:36; Start 05/05/20 at 08:00; Stop 05/06/20 at 08:39; Status DC Daptomycin 700 mg/ Sodium Chloride 50 ml @ 100 mls/hr Q48H IV Last administered on 05/05/20at 08:42; Start 05/05/20 at 09:00; Stop 05/06/20 at 09:09; Status DC Insulin Glargine (Lantus Syringe) 20 unit DAILY10 SQ Last administered on 05/05/20at 10:03; Start 05/05/20 at 10:00; Stop 05/06/20 at 09:08; Status DC Insulin Human Lispro (HumaLOG) 0-7 UNITS Q6HRS SQ Last administered on 05/07/20at 11:36; Start 05/05/20 at 12:00 Dextrose (Dextrose 50%-Water Syringe) 12.5 gm PRN Q15MIN PRN IV SEE COMMENTS; Start 05/05/20 at 09:15 Heparin Sodium (Porcine) (Heparin Sodium) 5,000 unit Q8HRS SQ Last administered on 05/07/20at 06:35; Start 05/05/20 at 14:00 Famotidine (Pepcid Vial) 20 mg QHS IVP Last administered on 05/06/20at 21:06; Start 05/05/20 at 21:00 Phenylephrine HCl (PHENYLEPHRINE in 0.9% NACL PF) 1 mg STK-MED ONCE IV ; Start 05/04/20 at 18:00; Stop 05/05/20 at 12:11; Status DC Etomidate (Amidate) 20 mg STK-MED ONCE IV ; Start 05/04/20 at 18:00; Stop 05/05/20 at 12:28; Status DC Rocuronium [place] (Zemuron) 50 mg STK-MED ONCE .ROUTE ; Start 05/04/20 at 18:00; Stop 05/05/20 at 12:28; Status DC Succinylcholine Chloride (Anectine) 200 mg STK-MED ONCE .ROUTE ; Start 05/04/20 at 18:00; Stop 05/05/20 at 12:28; Status DC Propofol (Diprivan) 1,000 mg STK-MED ONCE IV ; Start 05/04/20 at 18:00; Stop 05/05/20 at 12:28; Status DC Piperacillin Sod/ Tazobactam Sod 3.375 gm/Sodium Chloride 50 ml @ 100 mls/hr Q6HRS IV Last administered on 05/07/20at 11:31; Start 05/06/20 at 12:00 Insulin Glargine (Lantus Syringe) 40 unit DAILY10 SQ Last administered on 05/06/20at 09:37; Start 05/06/20 at 10:00; Stop 05/07/20 at 07:18; Status DC Fentanyl Citrate (Fentanyl 2ml Vial) 100 mcg STK-MED ONCE .ROUTE ; Start 05/06/20 at 11:35; Stop 05/06/20 at 11:35; Status DC Fentanyl Citrate (Fentanyl 2ml Vial) 50 mcg PRN Q2HR PRN IVP PAIN Last administered on 05/07/20at 07:16; Start 05/06/20 at 10:45 Insulin Glargine (Lantus Syringe) 60 unit DAILY SQ Last administered on 05/07/20at 09:02; Start 05/07/20 at 09:00 Fentanyl Citrate (Fentanyl 2ml Vial) 100 mcg STK-MED ONCE .ROUTE ; Start 05/06/20 at 11:40; Stop 05/07/20 at 08:51; Status DC Propofol 100 ml @ 5.247 mls/ hr CONT PRN IV PER PROTOCOL Last administered on 05/07/20at 09:39; Start 05/07/20 at 09:30 Active Scripts Active [Fluconazole] 100 MG Tablet 200 Mg PO DAILY 10 Days Amox Tr-K Clv 875-125 Mg Tab (Amoxicillin/Potassium Clav) 1 Each Tablet 1 Tab PO BID 10 Days Reported Hydrocodone-Acetamin 5-325 mg (Hydrocodone/Acetaminophen) 1 Each Tablet 1 Each PO PRN Q6HRS PRN Diclofenac Sodium 75 Mg Tablet.dr 1 Tab PO BID Amlodipine Besylate 5 Mg Tablet 5 Mg PO DAILY Furosemide 40 Mg Tablet 1 Tab PO DAILY Lisinopril 30 Mg Tablet 1 Tab PO DAILY Actos (Pioglitazone Hcl) 30 Mg Tablet 1 Tab PO DAILY Vitals/I & O Vital Sign - Last 24 Hours 3/3/05/06/20 05/06/20 05/06/20 13:00 14:00 15:00 15:37 Pulse 74 72 65 Resp 22 22 22 B/P (MAP) 134/58 (83) 142/58 (86) 134/56 (82) Pulse Ox 94 96 99 100 O2 Delivery Ventilator Ventilator Ventilator Ventilator 05/06/20 05/06/20 05/06/20 05/06/20 16:00 16:00 16:00 16:23 Temp 98.3 98.3 Pulse 64 64 Resp 22 B/P (MAP) 110/48 (68) 110/48 (68) Pulse Ox 100 100 O2 Delivery Mechanical Ventilator Ventilator 05/06/20 05/06/20 05/06/20 05/06/20 16:53 17:00 18:00 19:00 Pulse 61 60 60 Resp 22 B/P (MAP) 110/52 (71) 107/48 (67) 110/49 (69) Pulse Ox 100 100 100 100 O2 Delivery Ventilator Ventilator Ventilator 05/06/20 05/06/20 05/06/20 05/06/20 19:45 20:00 20:00 20:15 Temp 98.7 98.7 Pulse 56 Resp 22 B/P (MAP) 107/48 (67) Pulse Ox 100 100 O2 Delivery Mechanical Ventilator Ventilator Ventilator 05/06/20 05/06/20 05/06/20 05/06/20 20:45 21:00 22:00 22:15 Pulse 61 56 Resp 22 22 B/P (MAP) 108/50 (69) 107/49 (68) 106/49 (68) 104/46 (65) Pulse Ox 99 100 O2 Delivery Ventilator Ventilator 05/06/20 05/06/20 05/06/20 05/07/20 23:00 23:15 23:45 00:00 Pulse 54 Resp 22 B/P (MAP) 102/45 (64) 108/48 (68) 118/50 (72) Pulse Ox 100 O2 Delivery Ventilator 05/07/20 05/07/20 05/07/20 05/07/20 00:00 00:01 00:05 00:45 Temp 97.9 97.9 Pulse 59 Resp 22 B/P (MAP) 110/48 (68) 118/47 (70) Pulse Ox 100 100 O2 Delivery Mechanical Ventilator Ventilator Ventilator 305/07/20 05/07/20 05/07/20 01:00 02:00 02:15 03:00 Pulse 61 58 64 Resp 22 22 22 B/P (MAP) 121/48 (72) 118/48 (71) 130/50 (76) 124/50 (74) Pulse Ox 100 100 97 O2 Delivery Ventilator Ventilator Ventilator 05/07/20 05/07/20 05/07/20 05/07/20 03:15 03:50 04:00 04:00 Temp 98.1 98.1 Pulse 66 Resp 22 B/P (MAP) 124/50 (74) 130/56 (80) Pulse Ox 95 O2 Delivery Ventilator Ventilator 05/07/20 05/07/20 05/07/20 05/07/20 04:00 04:20 04:25 05:00 Pulse 59 Resp 22 B/P (MAP) 130/57 (81) Pulse Ox 100 95 O2 Delivery Mechanical Ventilator Ventilator Ventilator Ventilator 05/07/20 05/07/20 05/07/20 05/07/20 06:00 07:00 07:16 07:16 Pulse 88 64 Resp 22 16 B/P (MAP) 118/60 (79) 176/66 (102) Pulse Ox 93 95 94 93 O2 Delivery Ventilator Ventilator Ventilator 05/07/20 05/07/20 05/07/20 05/07/20 07:46 08:00 08:00 08:00 Temp 97.5 97.5 Pulse 66 66 Resp 16 B/P (MAP) 146/61 (89) 146/61 (89) Pulse Ox 96 100 O2 Delivery Ventilator Mechanical Ventilator Ventilator 05/07/20 05/07/20 05/07/20 05/07/20 09:00 10:00 11:00 11:31 Pulse 69 68 51 Resp 16 16 16 B/P (MAP) 170/66 (100) 137/56 (83) 101/53 (69) Pulse Ox 99 97 100 99 O2 Delivery Ventilator Ventilator Ventilator Ventilator 05/07/20 05/07/20 05/07/20 12:00 12:00 12:00 Temp 98.3 98.3 Pulse 50 50 Resp 16 B/P (MAP) 111/55 (73) 111/55 (73) Pulse Ox 99 O2 Delivery Ventilator Mechanical Ventilator l Intake and Output 05/06/20 05/06/20 05/07/20 15:00 23:00 07:00 Intake Total 701 ml 1137 ml 1081 ml Output Total 2425 ml 1700 ml 1350 ml Balance -1724 ml -563 ml -269 ml Justicifation of Admission Dx: Justifications for Admission: Justification of Admission Dx: N/A VERO GOMEZ MD May 07, 2020 12:50
--- NOTE | 2020-05-07 14:34 | NUR ---
SS following up with discharge planning. SS reviewed pt chart and discussed with pt RN. Pt is currently on the vent at 60%. COVID19 negative. Pt failed CPAP trial today. Pt on Propofol and Levophed. Pt on IV Zosyn. Tube feeds. Not stable. SS will continue to follow for discharge planning.
[2020-05-07 20:36] LABS: ALPHA 1 0.5 g/dL (0.0-0.4); ALPHA 2 0.9 g/dL (0.4-1.0); BETA 0.9 g/dL (0.7-1.3); GAMMA 0.8 g/dL (0.4-1.8); PROTEIN TOTAL 5.1 g/dL (6.0-8.5); SPEP AG RATIO 0.6 (0.7-1.7)
[2020-05-07] MEDS: FAMOTIDINE 20 MG/2 ML VIAL IVP SCH (22:02)
[2020-05-08] VITALS (24 sets, daily range): BP systolic 96–155; BP diastolic 48–82
[2020-05-08] MEDS: PIPERACILLIN/TAZOBACTAM 3.375 GM in IV NORMAL SALINE 50ML 50 ML IV SCH ×4 (00:16→17:41)
[2020-05-08] MEDS: INSULIN LISPRO 300 UNITS/3 ML VIAL. SQ SCH ×4 (00:20→17:41)
[2020-05-08] MEDS: PROPOFOL 100 ML IV PRN ×5 (06:20→21:04)
[2020-05-08] MEDS: HEPARIN for SUB-Q USE 5,000 UNIT/ML VIAL. SQ SCH ×3 (06:30→21:37)
[2020-05-08 06:53] LABS: CALCIUM 8.4 mg/dL (8.5-10.1); CREATININE 1.7 mg/dL (0.7-1.3); GFR 41.5; POTASSIUM 4.3 mmol/L (3.5-5.1)
--- NOTE | 2020-05-08 07:40 | PDOC ---
Infectious Disease Note Subjective Subjective pt is intubated on vent ROS ROS no n/v/d/ Vital Sign Vital Signs Vital Signs Date Time Temp Pulse Resp B/P (MAP) Pulse Ox O2 Delivery O2 Flow Rate FiO2 05/08/20 07:00 55 16 96/50 (65) 100 Ventilator 05/08/20 04:00 98.4 98.4 Physical Exam PHYSICAL EXAM GENERAL: Sedated, orally intubated gentleman, not in any distress. VITAL SIGNS: stable HEENT: Both pupils are round and reacting. No conjunctival lesion. Orally intubated, unable to see the mouth. NECK: Supple, no JVP, no lymphadenopathy. LUNGS: Decreased breath sounds. HEART: S1, S2 regular. No gallop or murmur. ABDOMEN: Soft, nontender, no organomegaly. EXTREMITIES: No edema or cyanosis. SKIN: Unremarkable. NEUROLOGIC: The patient is sedated, orally intubated, unable to vp client services, although he was moving all the extremities before intubation as per the RN. Labs Lab Laboratory Tests Test 05/07/20 11:35 05/07/20 17:42 05/08/20 00:16 05/08/20 06:28 Glucose (Fingerstick) 247 mg/dL (70-99) 294 mg/dL (70-99) 342 mg/dL (70-99) 329 mg/dL (70-99) Test 05/08/20 06:30 Sodium Level 132 mmol/L (136-145) Potassium Level 4.3 mmol/L (3.5-5.1) Chloride Level 96 mmol/L (98-107) Carbon Dioxide Level 31 mmol/L (21-32) Anion Gap 5 (6-14) Blood Urea Nitrogen 70 mg/dL (8-26) Creatinine 1.7 mg/dL (0.7-1.3) Estimated GFR (Cockcroft-Gault) 41.5 Glucose Level 333 mg/dL (70-99) Calcium Level 8.4 mg/dL (8.5-10.1) Micro BLOOD CULTURE LC Final Final GRAM NEGATIVE RODS FINAL ID= [ESCHERICHIA COLI] ESCHERICHIA COLI ANTIMICROBIAL SUSCEPTIBILITY Final Comment NEG RAD 56 ESCHERICHIA COLI ANTIBIOTIC RESULT INTERPRETATION AMPICILLIN/SULBACTAM <=4/2 S AMIKACIN <=16 S AMPICILLIN <=8 S AMOXICILLIN/K CLAVULANATE <=8/4 S AZTREONAM <=4 S CEFTRIAXONE <=1 S CEFTAZIDIME <=1 S CEFOTAXIME <=2 S CEFOXITIN <=8 S CEFAZOLIN <=2 S CIPROFLOXACIN <=0.25 S CEFEPIME <=2 S CEFUROXIME 8 S CEFTAZIDIME/AVIBACTAM <=4 S ERTAPENEM <=0.5 S GENTAMICIN <=2 S LEVOFLOXACIN <=0.5 S MEROPENEM <=1 S PIPERACILLIN/TAZOBACTAM <=8 S TRIMETHOPRIM/SULFAMETHOXAZOLE <=0.5/9.5 S TETRACYCLINE <=4 S TOBRAMYCIN <=2 S Unless otherwise specified, Testing Performed by: [facility] [address] [place] [address] For Inquires, the Physician may contact the Microbiology department at [phone] Objective Assessment IMPRESSION: 1. Encephalopathy. 2. Leukopenia, from sepsis , now leukocytosis 3. Respiratory failure. 4. Hyponatremia. 5. Acute kidney injury. 6. Circulatory failure. 7. Obesity. 8. COVID neg 9 G neg selvin sepsis/ E coli 10 UTI with sepsis Plan Plan of Care 1. Continue supportive care. 2. Hydration. 3. cont Zosyn. will need ct abd , will wait for cr to improve CURT POST MD May 08, 2020 07:40
[2020-05-08 08:03] LABS: BASE EXCESS ABG 7 mmol/L (-3-3); HCO3 ABG 31 mmol/L (21-28); PCO2 ABG 42 mmHg (35-46); PO2 ABG 84 mmHg (65-108); SAT O2 ABG 96 % (92-99)
[2020-05-08 08:12] LABS: FIO2 ABG 40% vent
--- NOTE | 2020-05-08 08:41 | PDOC ---
PROGRESS NOTES Date of Service DATE: 05/08/20 TIME: 08:40 Assessment Problems Medical Problems: (1) Acute kidney failure Status: Acute (2) Altered mental status Status: Acute (3) Hyperkalemia Status: Acute (4) Hyperuricemia Status: Acute (5) Lymphopenia Status: Acute (6) Respiratory failure with hypoxia Status: Acute Metabolic encephalopathy due to renal failure, respiratory failure, E-Coli sepsis, no evidence of primary neurological issue such as stroke, seizures, central nervous system infection. Rhabdomyolysis and leukopenia, improving Develop tachypnea on extubation attempt 05/06 Plan Treat medical diseases Holding off on additional neurological studies such as electroencephalogram Subjective None Objective Vital Signs Date Time Temp Pulse Resp B/P (MAP) Pulse Ox O2 Delivery O2 Flow Rate FiO2 05/08/20 08:08 100 Ventilator 05/08/20 08:00 99.1 61 16 107/55 (72) 99.1 Intake and Output 05/08/20 07:00 Intake Total 1541.9 ml Output Total 3440 ml Balance -1898.1 ml Intake Oral 0 ml IV Total 485.9 ml Tube Feeding 856 ml Other 200 ml Output Urine Total 3440 ml Gastric Drainage Total 0 ml # Bowel Movements 1 PHYSICAL EXAM Sedated, does respond to being moved PERRL. EOMI. CN: no focal findings. Muscle tone: normal. Muscle strength: Moves all extremities DTR: 0+ Plantar reflex: Flexor Gait: not examined in bed. Sensory exam: no abnormal findings. No cerebellar signs elicited. Review of Relevant I have reviewed the following items elina (where applicable) has been applied. Labs Laboratory Tests Test 05/06/20 12:24 05/06/20 17:49 05/06/20 23:45 05/07/20 06:20 Glucose (Fingerstick) 280 mg/dL (70-99) 313 mg/dL (70-99) 319 mg/dL (70-99) Sodium Level 133 mmol/L (136-145) Potassium Level 4.0 mmol/L (3.5-5.1) Chloride Level 95 mmol/L (98-107) Carbon Dioxide Level 30 mmol/L (21-32) Anion Gap 8 (6-14) Blood Urea Nitrogen 72 mg/dL (8-26) Creatinine 1.9 mg/dL (0.7-1.3) Estimated GFR (Cockcroft-Gault) 36.5 Glucose Level 260 mg/dL (70-99) Calcium Level 8.3 mg/dL (8.5-10.1) Total Bilirubin 2.6 mg/dL (0.2-1.0) Direct Bilirubin 2.2 mg/dL (0.0-0.2) Aspartate Amino Transf (AST/SGOT) 186 U/L (15-37) Alanine Aminotransferase (ALT/SGPT) 165 U/L (16-63) Alkaline Phosphatase 354 U/L (46-116) Total Protein 6.1 g/dL (6.4-8.2) Albumin 1.5 g/dL (3.4-5.0) Test 05/07/20 06:33 05/07/20 07:24 05/07/20 11:35 05/07/20 17:42 Glucose (Fingerstick) 276 mg/dL (70-99) 247 mg/dL (70-99) 294 mg/dL (70-99) O2 Saturation 99 % (92-99) Arterial Blood pH 7.50 (7.35-7.45) Arterial Blood pCO2 at Patient Temp 38 mmHg (35-46) Arterial Blood pO2 at Patient Temp 229 mmHg (65-108) Arterial Blood HCO3 29 mmol/L (21-28) Arterial Blood Base Excess 5 mmol/L (-3-3) FiO2 100 vent Test 05/08/20 00:16 05/08/20 06:28 05/08/20 06:30 05/08/20 08:00 Glucose (Fingerstick) 342 mg/dL (70-99) 329 mg/dL (70-99) Sodium Level 132 mmol/L (136-145) Potassium Level 4.3 mmol/L (3.5-5.1) Chloride Level 96 mmol/L (98-107) Carbon Dioxide Level 31 mmol/L (21-32) Anion Gap 5 (6-14) Blood Urea Nitrogen 70 mg/dL (8-26) Creatinine 1.7 mg/dL (0.7-1.3) Estimated GFR (Cockcroft-Gault) 41.5 Glucose Level 333 mg/dL (70-99) Calcium Level 8.4 mg/dL (8.5-10.1) O2 Saturation 96 % (92-99) Arterial Blood pH 7.49 (7.35-7.45) Arterial Blood pCO2 at Patient Temp 42 mmHg (35-46) Arterial Blood pO2 at Patient Temp 84 mmHg (65-108) Arterial Blood HCO3 31 mmol/L (21-28) Arterial Blood Base Excess 7 mmol/L (-3-3) FiO2 40% vent Laboratory Tests Test 05/07/20 11:35 05/07/20 17:42 05/08/20 00:16 05/08/20 06:28 Glucose (Fingerstick) 247 mg/dL (70-99) 294 mg/dL (70-99) 342 mg/dL (70-99) 329 mg/dL (70-99) Test 05/08/20 06:30 05/08/20 08:00 Sodium Level 132 mmol/L (136-145) Potassium Level 4.3 mmol/L (3.5-5.1) Chloride Level 96 mmol/L (98-107) Carbon Dioxide Level 31 mmol/L (21-32) Anion Gap 5 (6-14) Blood Urea Nitrogen 70 mg/dL (8-26) Creatinine 1.7 mg/dL (0.7-1.3) Estimated GFR (Cockcroft-Gault) 41.5 Glucose Level 333 mg/dL (70-99) Calcium Level 8.4 mg/dL (8.5-10.1) O2 Saturation 96 % (92-99) Arterial Blood pH 7.49 (7.35-7.45) Arterial Blood pCO2 at Patient Temp 42 mmHg (35-46) Arterial Blood pO2 at Patient Temp 84 mmHg (65-108) Arterial Blood HCO3 31 mmol/L (21-28) Arterial Blood Base Excess 7 mmol/L (-3-3) FiO2 40% vent Microbiology 05/04/20 Blood Culture - Final, Complete 05/04/20 Antimicrobic Susceptibility - Final, Complete 05/04/20 Urine Culture - Final, Complete 05/04/20 Antimicrobic Susceptibility - Final, Complete Medications Current Medications Sodium Chloride 1,000 ml @ 1,000 mls/hr 1X ONCE IV Last administered on 05/04/20at 11:32; Start 05/04/20 at 11:45; Stop 05/04/20 at 12:44; Status DC Ceftriaxone Sodium (Rocephin) 1 gm 1X ONCE IVP Last administered on 05/04/20at 11:33; Start 05/04/20 at 11:45; Stop 05/04/20 at 11:46; Status DC Norepinephrine Bitartrate 8 mg/ Dextrose 258 ml @ 35.314 mls/ hr CONT PRN IV PER PROTOCOL Last administered on 05/04/20at 17:00; Start 05/04/20 at 17:00; Stop 05/04/20 at 18:09; Status DC Naloxone HCl (Narcan) 0.4 mg 1X ONCE IV Last administered on 05/04/20at 17:00; Start 05/04/20 at 17:00; Stop 05/04/20 at 17:01; Status DC Propofol 0 ml @ As Directed STK-MED ONCE IV ; Start 05/04/20 at 17:20; Stop 05/04/20 at 17:20; Status DC Succinylcholine Chloride (Anectine) 200 mg STK-MED ONCE .ROUTE ; Start 05/04/20 at 17:20; Stop 05/04/20 at 17:20; Status DC Rocuronium [place] (Zemuron) 50 mg STK-MED ONCE .ROUTE ; Start 05/04/20 at 17:20; Stop 05/04/20 at 17:21; Status DC Etomidate (Amidate) 20 mg STK-MED ONCE IV ; Start 05/04/20 at 17:20; Stop 05/04/20 at 17:21; Status DC Sodium Bicarbonate 150 meq/Dextrose 1,150 ml @ 150 mls/hr Q7H40M IV Last administered on 05/06/20at 07:44; Start 05/04/20 at 18:30; Stop 05/06/20 at 16:49; Status DC Fentanyl Citrate 30 ml @ 0 mls/hr CONT PRN IV SEE PROTOCOL; Start 05/04/20 at 18:15 Midazolam HCl 100 ml @ 0 mls/hr CONT PRN IV SEE PROTOCOL Last administered on 05/06/20at 19:09; Start 05/04/20 at 18:15 Norepinephrine Bitartrate 32 mg/ Dextrose 282 ml @ 9.65 mls/hr CONT PRN IV PER PROTOCOL Last administered on 05/06/20at 14:08; Start 05/04/20 at 18:15 Piperacillin Sod/ Tazobactam Sod 2.25 gm/Sodium Chloride 50 ml @ 100 mls/hr Q6HRS IV Last administered on 05/06/20at 06:36; Start 05/05/20 at 08:00; Stop 05/06/20 at 08:39; Status DC Daptomycin 700 mg/ Sodium Chloride 50 ml @ 100 mls/hr Q48H IV Last administered on 05/05/20at 08:42; Start 05/05/20 at 09:00; Stop 05/06/20 at 09:09; Status DC Insulin Glargine (Lantus Syringe) 20 unit DAILY10 SQ Last administered on 05/05/20at 10:03; Start 05/05/20 at 10:00; Stop 05/06/20 at 09:08; Status DC Insulin Human Lispro (HumaLOG) 0-7 UNITS Q6HRS SQ Last administered on 05/08/20at 06:30; Start 05/05/20 at 12:00 Dextrose (Dextrose 50%-Water Syringe) 12.5 gm PRN Q15MIN PRN IV SEE COMMENTS; Start 05/05/20 at 09:15 Heparin Sodium (Porcine) (Heparin Sodium) 5,000 unit Q8HRS SQ Last administered on 05/08/20at 06:30; Start 05/05/20 at 14:00 Famotidine (Pepcid Vial) 20 mg QHS IVP Last administered on 05/07/20at 22:02; Start 05/05/20 at 21:00 Phenylephrine HCl (PHENYLEPHRINE in 0.9% NACL PF) 1 mg STK-MED ONCE IV ; Start 05/04/20 at 18:00; Stop 05/05/20 at 12:11; Status DC Etomidate (Amidate) 20 mg STK-MED ONCE IV ; Start 05/04/20 at 18:00; Stop 05/05/20 at 12:28; Status DC Rocuronium [place] (Zemuron) 50 mg STK-MED ONCE .ROUTE ; Start 05/04/20 at 18:00; Stop 05/05/20 at 12:28; Status DC Succinylcholine Chloride (Anectine) 200 mg STK-MED ONCE .ROUTE ; Start 05/04/20 at 18:00; Stop 05/05/20 at 12:28; Status DC Propofol (Diprivan) 1,000 mg STK-MED ONCE IV ; Start 05/04/20 at 18:00; Stop 05/05/20 at 12:28; Status DC Piperacillin Sod/ Tazobactam Sod 3.375 gm/Sodium Chloride 50 ml @ 100 mls/hr Q6HRS IV Last administered on 05/08/20at 06:20; Start 05/06/20 at 12:00 Insulin Glargine (Lantus Syringe) 40 unit DAILY10 SQ Last administered on 05/06/20at 09:37; Start 05/06/20 at 10:00; Stop 05/07/20 at 07:18; Status DC Fentanyl Citrate (Fentanyl 2ml Vial) 100 mcg STK-MED ONCE .ROUTE ; Start 05/06/20 at 11:35; Stop 05/06/20 at 11:35; Status DC Fentanyl Citrate (Fentanyl 2ml Vial) 50 mcg PRN Q2HR PRN IVP PAIN Last administered on 05/07/20at 07:16; Start 05/06/20 at 10:45 Insulin Glargine (Lantus Syringe) 60 unit DAILY SQ Last administered on 05/07/20at 09:02; Start 05/07/20 at 09:00 Fentanyl Citrate (Fentanyl 2ml Vial) 100 mcg STK-MED ONCE .ROUTE ; Start 05/06/20 at 11:40; Stop 05/07/20 at 08:51; Status DC Propofol 100 ml @ 5.247 mls/ hr CONT PRN IV PER PROTOCOL Last administered on 05/08/20at 08:06; Start 05/07/20 at 09:30 Active Scripts Active [Fluconazole] 100 MG Tablet 200 Mg PO DAILY 10 Days Amox Tr-K Clv 875-125 Mg Tab (Amoxicillin/Potassium Clav) 1 Each Tablet 1 Tab PO BID 10 Days Reported Hydrocodone-Acetamin 5-325 mg (Hydrocodone/Acetaminophen) 1 Each Tablet 1 Each PO PRN Q6HRS PRN Diclofenac Sodium 75 Mg Tablet.dr 1 Tab PO BID Amlodipine Besylate 5 Mg Tablet 5 Mg PO DAILY Furosemide 40 Mg Tablet 1 Tab PO DAILY Lisinopril 30 Mg Tablet 1 Tab PO DAILY Actos (Pioglitazone Hcl) 30 Mg Tablet 1 Tab PO DAILY Vitals/I & O Vital Sign - Last 24 Hours 05/07/20 05/07/20 05/07/20 05/07/20 09:00 10:00 11:00 11:31 Pulse 69 68 51 Resp 16 16 16 B/P (MAP) 170/66 (100) 137/56 (83) 101/53 (69) Pulse Ox 99 97 100 99 O2 Delivery Ventilator Ventilator Ventilator Ventilator 05/07/20 05/07/20 05/07/20 05/07/20 12:00 12:00 12:00 13:00 Temp 98.3 98.3 Pulse 50 50 60 Resp 16 16 B/P (MAP) 111/55 (73) 111/55 (73) 109/54 (72) Pulse Ox 99 100 O2 Delivery Ventilator Mechanical Ventilator Ventilator 05/07/20 05/07/20 05/07/20 05/07/20 14:00 15:00 15:38 16:00 Temp 98.7 98.7 Pulse 63 59 58 Resp 16 16 16 B/P (MAP) 115/55 (75) 107/56 (73) 102/49 (66) Pulse Ox 100 100 99 100 O2 Delivery Ventilator Ventilator Ventilator Ventilator 05/07/20 05/07/20 05/07/20 05/07/20 16:00 16:00 17:00 18:00 Pulse 58 58 72 Resp 16 16 B/P (MAP) 102/49 (66) 106/50 (68) 95/52 (66) Pulse Ox 100 100 O2 Delivery Mechanical Ventilator Ventilator Ventilator 05/07/20 05/07/20 05/07/20 05/07/20 19:00 20:00 20:00 20:00 Temp 97.8 97.8 Pulse 63 54 Resp 16 16 B/P (MAP) 119/58 (78) 115/68 (84) Pulse Ox 100 100 O2 Delivery Ventilator Mechanical Ventilator Ventilator 05/07/20 05/07/20 05/07/20 05/07/20 20:30 21:00 22:00 23:00 Pulse 55 63 61 Resp 16 16 16 B/P (MAP) 116/64 (81) 122/60 (80) 104/54 (71) Pulse Ox 99 100 100 100 O2 Delivery Ventilator Ventilator Ventilator Ventilator 05/08/20 05/08/20 05/08/20 05/08/20 00:00 00:00 00:00 00:06 Temp 98.0 98.0 Pulse 57 Resp 16 B/P (MAP) 114/55 (74) Pulse Ox 100 100 O2 Delivery Mechanical Ventilator Ventilator Ventilator 05/08/20 05/08/20 05/08/205/21 01:00 02:00 03:00 04:00 Pulse 60 61 56 Resp 16 16 16 B/P (MAP) 106/54 (71) 110/53 (72) 104/52 (69) Pulse Ox 100 100 100 O2 Delivery Ventilator Ventilator Ventilator Mechanical Ventilator 05/08/20 05/08/20 05/08/20 05/08/20 04:00 04:00 04:22 05:00 Temp 98.4 98.4 Pulse 60 58 Resp 16 16 B/P (MAP) 101/54 (70) 107/58 (74) Pulse Ox 100 100 100 O2 Delivery Ventilator Ventilator Ventilator 05/08/20 05/08/20 05/08/20 05/08/20 06:00 07:00 08:00 08:00 Temp 99.1 99.1 Pulse 63 55 61 61 Resp 16 16 16 B/P (MAP) 99/54 (69) 96/50 (65) 107/55 (72) 107/55 (72) Pulse Ox 100 100 100 O2 Delivery Ventilator Ventilator Ventilator 05/08/20 05/08/20 08:00 08:08 Pulse Ox 100 O2 Delivery Mechanical Ventilator Ventilator Intake and Output 05/07/20 05/07/20 05/08/20 15:00 23:00 07:00 Intake Total 264 ml 1103.5 ml 174.4 ml Output Total 1510 ml 925 ml 1005 ml Balance -1246 ml 178.5 ml -830.6 ml Justicifation of Admission Dx: Justifications for Admission: Justification of Admission Dx: N/A VERO GOMEZ MD May 08, 2020 08:41
[2020-05-08] MEDS: INSULIN GLARGINE SYRINGE. SQ SCH (09:01)
--- NOTE | 2020-05-08 09:04 | PDOC ---
Provider Note Date of Service: DATE: 05/08/20 TIME: 09:02 Provider Note blood/urine show e coli sens to all- glucose higher despite more lantus- TAs, bili up , will get gb sono, follow- lantus from 60 to 90u now- Justifications for Admission Other Justification MARGARET DUDLEY MD May 08, 2020 09:04
--- NOTE | 2020-05-08 09:27 | PDOC ---
DATE OF SERVICE DATE: 05/08/20 TIME: 09:25 SUBJECTIVE ROS Remains intubated, sedated OBJECTIVE Vital Signs Vital Signs Date Time Temp Pulse Resp B/P (MAP) Pulse Ox O2 Delivery O2 Flow Rate FiO2 05/08/20 09:00 61 16 101/50 (67) 100 Ventilator 05/08/20 08:00 99.1 99.1 I & 0 Intake and Output 05/08/20 07:00 Intake Total 1541.9 ml Output Total 3440 ml Balance -1898.1 ml Intake Oral 0 ml IV Total 485.9 ml Tube Feeding 856 ml Other 200 ml Output Urine Total 3440 ml Gastric Drainage Total 0 ml # Bowel Movements 1 PHYSICAL EXAM Physical Exam GENERAL: Sedated, not in any distress. HEENT: Both pupils are round and reacting. Orally intubated NECK: Supple, LUNGS: Decreased breath sounds. HEART: S1, S2 regular. No gallop or murmur. ABDOMEN: Soft, obese EXTREMITIES: Bilat LE edema 2-3+ SKIN: Unremarkable, No Rash NEUROLOGIC:sedated, orally intubated, moving all the extremities before in tubation per the RN JOSE R Duggan present PSYCH Unable to assess DIAGNOSIS/ASSESSMENT Assessment & Plan AUGUSTINE - Currently Non Oliguric , ATN, sepsis , renal function improving Avoid nephrotoxins HypoNatremia - resolved correct for high glucose DM- BS high Primary managing Metabolic Acidosis POA - resolved Sepsis- Gram negative rods UTI - E Coli on culture, defer to ID Elevated LFT's Rhabdo- minimally elevated CK Acute hypoxic respiratory failure secondary to acute encephalopathy . Cxr 4/3 Increased moderate bilateral pleural effusions. Increased hazy bibasilar opacities, probably layering pleural fluid Encephalopathy. Severe Hypoalbumniemia - currently on TF Leukopenia POA - resolved, now Leukocytosis Thrombocytopenia - hem/Onc consulted, K/L mildly elevated . SPEP pending COMMENT/RELEVANT DATA Meds Current Medications Medications (Trade) Dose Ordered Sig/Triny Start Time Stop Time Status Last Admin Dose Admin Ceftriaxone Sodium (Rocephin) 1 gm 1X ONCE 05/04/20 11:45 05/04/20 11:46 DC 05/04/20 11:33 1 GM Daptomycin 700 mg/ Sodium Chloride 50 ml @ 100 mls/hr Q48H 05/05/20 09:00 05/06/20 09:09 DC 05/05/20 08:42 100 MLS/HR Dextrose (Dextrose 50%-Water Syringe) 12.5 gm PRN Q15MIN PRN 05/05/20 09:15 Etomidate (Amidate) 20 mg STK-MED ONCE 05/04/20 18:00 05/05/20 12:28 DC Famotidine (Pepcid Vial) 20 mg QHS 05/05/20 21:00 05/07/20 22:02 20 MG Fentanyl Citrate (Fentanyl 2ml Vial) 100 mcg STK-MED ONCE 05/06/20 11:40 05/07/20 08:51 DC Furosemide (Lasix) 40 mg 1X ONCE 05/08/20 10:00 05/08/20 10:01 Heparin Sodium (Porcine) (Heparin Sodium) 5,000 unit Q8HRS 05/05/20 14:00 05/08/20 06:30 5,000 UNIT Insulin Glargine (Lantus Syringe) 30 unit 1X ONCE 05/08/20 09:30 05/08/20 09:31 Insulin Human Lispro (HumaLOG) 0-7 UNITS Q6HRS 05/05/20 12:00 05/08/20 06:30 7 UNITS Midazolam HCl 100 ml @ 0 mls/hr CONT PRN 05/04/20 18:15 05/06/20 19:09 5 MLS/HR Naloxone HCl (Narcan) 0.4 mg 1X ONCE 05/04/20 17:00 05/04/20 17:01 DC 05/04/20 17:00 0.4 MG Norepinephrine Bitartrate 32 mg/ Dextrose 282 ml @ 9.65 mls/hr CONT PRN 05/04/20 18:15 05/06/20 14:08 12.6 MLS/HR Norepinephrine Bitartrate 8 mg/ Dextrose 258 ml @ 35.314 mls/ hr CONT PRN 05/04/20 17:00 05/04/20 18:09 DC 05/04/20 17:00 35.314 MLS/HR Phenylephrine HCl (PHENYLEPHRINE in 0.9% NACL PF) 1 mg STK-MED ONCE 05/04/20 18:00 05/05/20 12:11 DC Piperacillin Sod/ Tazobactam Sod 2.25 gm/Sodium Chloride 50 ml @ 100 mls/hr Q6HRS 05/05/20 08:00 05/06/20 08:39 DC 05/06/20 06:36 100 MLS/HR Piperacillin Sod/ Tazobactam Sod 3.375 gm/Sodium Chloride 50 ml @ 100 mls/hr Q6HRS 05/06/20 12:00 05/08/20 06:20 100 MLS/HR Propofol 100 ml @ 5.247 mls/ hr CONT PRN 05/07/20 09:30 05/08/20 08:06 26.9 MLS/HR Propofol (Diprivan) 1,000 mg STK-MED ONCE 05/04/20 18:00 05/05/20 12:28 DC Rocuronium [place] (Zemuron) 50 mg STK-MED ONCE 05/04/20 18:00 05/05/20 12:28 DC Sodium Bicarbonate 150 meq/Dextrose 1,150 ml @ 150 mls/hr Q7H40M 05/04/20 18:30 05/06/20 16:49 DC 05/06/20 07:44 150 MLS/HR Sodium Chloride 1,000 ml @ 1,000 mls/hr 1X ONCE 05/04/20 11:45 05/04/20 12:44 DC 05/04/20 11:32 1,000 MLS/HR Succinylcholine Chloride (Anectine) 200 mg STK-MED ONCE 05/04/20 18:00 05/05/20 12:28 DC Lab Laboratory Tests Test 05/07/20 11:35 05/07/20 17:42 05/08/20 00:16 05/08/20 06:28 Glucose (Fingerstick) 247 mg/dL (70-99) 294 mg/dL (70-99) 342 mg/dL (70-99) 329 mg/dL (70-99) Test 05/08/20 06:30 05/08/20 08:00 Sodium Level 132 mmol/L (136-145) Potassium Level 4.3 mmol/L (3.5-5.1) Chloride Level 96 mmol/L (98-107) Carbon Dioxide Level 31 mmol/L (21-32) Anion Gap 5 (6-14) Blood Urea Nitrogen 70 mg/dL (8-26) Creatinine 1.7 mg/dL (0.7-1.3) Estimated GFR (Cockcroft-Gault) 41.5 Glucose Level 333 mg/dL (70-99) Calcium Level 8.4 mg/dL (8.5-10.1) O2 Saturation 96 % (92-99) Arterial Blood pH 7.49 (7.35-7.45) Arterial Blood pCO2 at Patient Temp 42 mmHg (35-46) Arterial Blood pO2 at Patient Temp 84 mmHg (65-108) Arterial Blood HCO3 31 mmol/L (21-28) Arterial Blood Base Excess 7 mmol/L (-3-3) FiO2 40% vent Results All relevant outside records, renal labs, imaging studies, telemetry/EKG's were reviewed. Justicifation of Admission Dx: Justifications for Admission: Justification of Admission Dx: N/A LEYDI MOSLEY MD May 08, 2020 09:27
[2020-05-08] MEDS ORDERED: INSULIN GLARGINE SYRINGE. SQ ONE (09:30)
[2020-05-08] MEDS ORDERED: FUROSEMIDE 40 MG/4 ML VIAL. IVP ONE (10:00)
--- NOTE | 2020-05-08 10:14 | PDOC ---
PULMONARY PROGRESS NOTES DATE: 05/08/20 TIME: 10:12 Subjective remains intubated/on sedation increase R/R on CPAP trial 05/07 AC mode Vitals Vital Signs Date Time Temp Pulse Resp B/P (MAP) Pulse Ox O2 Delivery O2 Flow Rate FiO2 05/08/20 09:00 61 16 101/50 (67) 100 Ventilator 05/08/20 08:00 99.1 99.1 Lungs: Clear Cardiovascular: S1 Abdomen: Soft, Other (obese) Extremities: Other (2+edema) Labs Laboratory Tests Test 05/06/20 12:24 05/06/20 17:49 05/06/20 23:45 05/07/20 06:20 Glucose (Fingerstick) 280 mg/dL (70-99) 313 mg/dL (70-99) 319 mg/dL (70-99) Sodium Level 133 mmol/L (136-145) Potassium Level 4.0 mmol/L (3.5-5.1) Chloride Level 95 mmol/L (98-107) Carbon Dioxide Level 30 mmol/L (21-32) Anion Gap 8 (6-14) Blood Urea Nitrogen 72 mg/dL (8-26) Creatinine 1.9 mg/dL (0.7-1.3) Estimated GFR (Cockcroft-Gault) 36.5 Glucose Level 260 mg/dL (70-99) Calcium Level 8.3 mg/dL (8.5-10.1) Total Bilirubin 2.6 mg/dL (0.2-1.0) Direct Bilirubin 2.2 mg/dL (0.0-0.2) Aspartate Amino Transf (AST/SGOT) 186 U/L (15-37) Alanine Aminotransferase (ALT/SGPT) 165 U/L (16-63) Alkaline Phosphatase 354 U/L (46-116) Total Protein 6.1 g/dL (6.4-8.2) Albumin 1.5 g/dL (3.4-5.0) Test 05/07/20 06:33 05/07/20 07:24 05/07/20 11:35 05/07/20 17:42 Glucose (Fingerstick) 276 mg/dL (70-99) 247 mg/dL (70-99) 294 mg/dL (70-99) O2 Saturation 99 % (92-99) Arterial Blood pH 7.50 (7.35-7.45) Arterial Blood pCO2 at Patient Temp 38 mmHg (35-46) Arterial Blood pO2 at Patient Temp 229 mmHg (65-108) Arterial Blood HCO3 29 mmol/L (21-28) Arterial Blood Base Excess 5 mmol/L (-3-3) FiO2 100 vent Test 05/08/20 00:16 05/08/20 06:28 05/08/20 06:30 05/08/20 08:00 Glucose (Fingerstick) 342 mg/dL (70-99) 329 mg/dL (70-99) Sodium Level 132 mmol/L (136-145) Potassium Level 4.3 mmol/L (3.5-5.1) Chloride Level 96 mmol/L (98-107) Carbon Dioxide Level 31 mmol/L (21-32) Anion Gap 5 (6-14) Blood Urea Nitrogen 70 mg/dL (8-26) Creatinine 1.7 mg/dL (0.7-1.3) Estimated GFR (Cockcroft-Gault) 41.5 Glucose Level 333 mg/dL (70-99) Calcium Level 8.4 mg/dL (8.5-10.1) O2 Saturation 96 % (92-99) Arterial Blood pH 7.49 (7.35-7.45) Arterial Blood pCO2 at Patient Temp 42 mmHg (35-46) Arterial Blood pO2 at Patient Temp 84 mmHg (65-108) Arterial Blood HCO3 31 mmol/L (21-28) Arterial Blood Base Excess 7 mmol/L (-3-3) FiO2 40% vent Laboratory Tests Test 05/07/20 11:35 05/07/20 17:42 05/08/20 00:16 05/08/20 06:28 Glucose (Fingerstick) 247 mg/dL (70-99) 294 mg/dL (70-99) 342 mg/dL (70-99) 329 mg/dL (70-99) Test 05/08/20 06:30 05/08/20 08:00 Sodium Level 132 mmol/L (136-145) Potassium Level 4.3 mmol/L (3.5-5.1) Chloride Level 96 mmol/L (98-107) Carbon Dioxide Level 31 mmol/L (21-32) Anion Gap 5 (6-14) Blood Urea Nitrogen 70 mg/dL (8-26) Creatinine 1.7 mg/dL (0.7-1.3) Estimated GFR (Cockcroft-Gault) 41.5 Glucose Level 333 mg/dL (70-99) Calcium Level 8.4 mg/dL (8.5-10.1) O2 Saturation 96 % (92-99) Arterial Blood pH 7.49 (7.35-7.45) Arterial Blood pCO2 at Patient Temp 42 mmHg (35-46) Arterial Blood pO2 at Patient Temp 84 mmHg (65-108) Arterial Blood HCO3 31 mmol/L (21-28) Arterial Blood Base Excess 7 mmol/L (-3-3) FiO2 40% vent Medications Active Scripts Medications Dose Route/Sig Max Daily Dose Days Date Category [Fluconazole] 100 MG Tablet 200 Mg PO DAILY 07/17/19 Rx Amox Tr-K Clv 875-125 Mg Tab (Amoxicillin/Potassium Clav) 1 Each Tablet 1 Tab PO BID 07/17/19 Rx Hydrocodone-Acetamin 5-325 mg (Hydrocodone/Acetaminophen) 1 Each Tablet 1 Each PO PRN Q6HRS PRN 03/14/19 Reported Diclofenac Sodium 75 Mg Tablet.dr 1 Tab PO BID 03/14/19 Reported Amlodipine Besylate 5 Mg Tablet 5 Mg PO DAILY 03/14/19 Reported Furosemide 40 Mg Tablet 1 Tab PO DAILY 03/14/19 Reported Lisinopril 30 Mg Tablet 1 Tab PO DAILY 03/14/19 Reported Actos (Pioglitazone Hcl) 30 Mg Tablet 1 Tab PO DAILY 01/31/18 Reported Comments cxr 3/4 increase effusions Impression . 1. Acute hypoxic respiratory failure secondary to acute encephalopathy and acute rhabdomyolysis along with metabolic acidosis. 2. Acute rhabdomyolysis from fall, details not available. Urine drug screen also positive for opiates. Currently on a bicarbonate drip. Metabolic acidosis improving. CK will need to be repeated. 3. Bilateral interstitial infiltrates, likely suspect interstitial edema.now increase effusions 4. Leukopenia, which is now resolved and has leukocytosis, neg COVID. 5. Acute kidney injury secondary to rhabdomyolysis. 6. Hyponatremia. 7. E-Coli sepsis Plan . 1. dc sedation, CPAP trial today 2. Wean FiO2. 3. off Bicarb drip . prn lasix , increase effusions 4. Monitor renal function. 5. antibiotic per ID. 6. Follow Neurology recommendation. 7. DVT prophylaxis. 8. Stress ulcer prophylaxis. 9. Discussed with RN and RT. Chart reviewed, imaging studies reviewed, labs reviewed.d/w renal Critical care time 30 minutes. ASAD BISHOP MD May 08, 2020 10:14
--- NOTE | 2020-05-08 13:42 | NUR ---
SS following up with discharge planning. SS reviewed pt chart and discussed with pt RN. Pt is currently on the vent at 45%. Pt failed CPAP trial this morning. COVID19 negative. Pt on IV Zosyn and tube feeds. Pt on propofol. Not stable. SS will continue to follow for discharge planning.
--- NOTE | 2020-05-08 17:09 | RAD ---
EXAMINATION: LIMITED RIGHT UPPER QUADRANT ULTRASOUND CLINICAL HISTORY: Transaminitis TECHNIQUE: Sonography of the right upper quadrant was performed. COMPARISON: None FINDINGS: Limited evaluation secondary to patient's physical condition on ventilator and large body habitus. Pancreas: Limited evaluation of the head and proximal body unremarkable. Liver: No evidence of focal hepatic lesion on limited evaluation. Biliary: No evidence of intrahepatic biliary duct dilation on limited evaluation. - CBD: Not visualized. - Gallbladder: Unremarkable on limited evaluation. Right Kidney: Measures 12.7 cm in length. No evidence of hydronephrosis or focal lesion on limited ev aluation. Ascites: None. IVC: Partially visualized IVC unremarkable. IMPRESSION: Significantly limited evaluation of the right upper quadrant is unremarkable. Electronically signed by: Bc Omer DO (05/08/2020 5:07 PM) [id number]
[2020-05-08] MEDS: FAMOTIDINE 20 MG/2 ML VIAL IVP SCH (21:36)
[2020-05-09] VITALS (24 sets, daily range): BP systolic 110–191; BP diastolic 52–78
[2020-05-09] MEDS: PIPERACILLIN/TAZOBACTAM 3.375 GM in IV NORMAL SALINE 50ML 50 ML IV SCH ×4 (01:01→16:54)
[2020-05-09] MEDS: PROPOFOL 100 ML IV PRN ×8 (01:03→22:51)
[2020-05-09] MEDS: INSULIN LISPRO 300 UNITS/3 ML VIAL. SQ SCH ×4 (01:10→16:55)
[2020-05-09] MEDS: HEPARIN for SUB-Q USE 5,000 UNIT/ML VIAL. SQ SCH ×3 (07:44→21:54)
[2020-05-09 07:48] LABS: CALCIUM 8.3 mg/dL (8.5-10.1); CREATININE 1.3 mg/dL (0.7-1.3); GFR 56.5; POTASSIUM 4.4 mmol/L (3.5-5.1)
[2020-05-09 07:56] LABS: BASE EXCESS ABG 6 mmol/L (-3-3); HCO3 ABG 30 mmol/L (21-28); PCO2 ABG 42 mmHg (35-46); PO2 ABG 101 mmHg (65-108); SAT O2 ABG 97 % (92-99)
[2020-05-09 07:56] LABS: ALBUMIN 1.6 g/dL (3.4-5.0); DIRECT BILIRUBIN 1.9 mg/dL (0.0-0.2); TOTAL BILIRUBIN 2.3 mg/dL (0.2-1.0); TOTAL PROTEIN 5.7 g/dL (6.4-8.2)
--- NOTE | 2020-05-09 08:18 | PDOC ---
Infectious Disease Note Subjective Subjective pt is intubated on vent ROS ROS no n/v/d/sob Vital Sign Vital Signs Vital Signs Date Time Temp Pulse Resp B/P (MAP) Pulse Ox O2 Delivery O2 Flow Rate FiO2 05/09/20 08:00 98.0 71 16 153/72 (99) 100 Ventilator 98.0 Physical Exam PHYSICAL EXAM GENERAL: Sedated, orally intubated gentleman, not in any distress. VITAL SIGNS: stable HEENT: Both pupils are round and reacting. No conjunctival lesion. Orally intubated, unable to see the mouth. NECK: Supple, no JVP, no lymphadenopathy. LUNGS: Decreased breath sounds. HEART: S1, S2 regular. No gallop or murmur. ABDOMEN: Soft, nontender, no organomegaly. EXTREMITIES: No edema or cyanosis. SKIN: Unremarkable. 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 Labs Lab Laboratory Tests Test 05/08/20 11:11 05/08/20 17:39 05/09/20 07:25 05/09/20 07:35 Glucose (Fingerstick) 332 mg/dL (70-99) 224 mg/dL (70-99) 236 mg/dL (70-99) Sodium Level 138 mmol/L (136-145) Potassium Level 4.4 mmol/L (3.5-5.1) Chloride Level 99 mmol/L (98-107) Carbon Dioxide Level 32 mmol/L (21-32) Anion Gap 7 (6-14) Blood Urea Nitrogen 54 mg/dL (8-26) Creatinine 1.3 mg/dL (0.7-1.3) Estimated GFR (Cockcroft-Gault) 56.5 Glucose Level 245 mg/dL (70-99) Calcium Level 8.3 mg/dL (8.5-10.1) Total Bilirubin 2.3 mg/dL (0.2-1.0) Direct Bilirubin 1.9 mg/dL (0.0-0.2) Aspartate Amino Transf (AST/SGOT) 94 U/L (15-37) Alanine Aminotransferase (ALT/SGPT) 154 U/L (16-63) Alkaline Phosphatase 407 U/L (46-116) Total Protein 5.7 g/dL (6.4-8.2) Albumin 1.6 g/dL (3.4-5.0) Micro BLOOD CULTURE LC Final Final GRAM NEGATIVE RODS FINAL ID= [ESCHERICHIA COLI] ESCHERICHIA COLI ANTIMICROBIAL SUSCEPTIBILITY Final Comment NEG RAD 56 ESCHERICHIA COLI ANTIBIOTIC RESULT INTERPRETATION AMPICILLIN/SULBACTAM <=4/2 S AMIKACIN <=16 S AMPICILLIN <=8 S AMOXICILLIN/K CLAVULANATE <=8/4 S AZTREONAM <=4 S CEFTRIAXONE <=1 S CEFTAZIDIME <=1 S CEFOTAXIME <=2 S CEFOXITIN <=8 S CEFAZOLIN <=2 S CIPROFLOXACIN <=0.25 S CEFEPIME <=2 S CEFUROXIME 8 S CEFTAZIDIME/AVIBACTAM <=4 S ERTAPENEM <=0.5 S GENTAMICIN <=2 S LEVOFLOXACIN <=0.5 S MEROPENEM <=1 S PIPERACILLIN/TAZOBACTAM <=8 S TRIMETHOPRIM/SULFAMETHOXAZOLE <=0.5/9.5 S TETRACYCLINE <=4 S TOBRAMYCIN <=2 S Unless otherwise specified, Testing Performed by: [place] [address] For Inquires, the Physician may contact the Microbiology department at [phone] Objective Assessment IMPRESSION: 1. Encephalopathy. 2. Leukopenia, from sepsis , now leukocytosis 3. Respiratory failure. 4. Hyponatremia. 5. Acute kidney injury. 6. Circulatory failure. 7. Obesity. 8. COVID neg 9 G neg selvin sepsis/ E coli 10 UTI with sepsis Plan Plan of Care 1. Continue supportive care. 2. Hydration. 3. cont Zosyn. CURT POST MD May 09, 2020 08:18
[2020-05-09 08:24] LABS: FIO2 ABG 45
[2020-05-09] MEDS ORDERED: INSULIN GLARGINE SYRINGE. SQ SCH (09:00)
--- NOTE | 2020-05-09 09:14 | PDOC ---
PULMONARY PROGRESS NOTES DATE: 05/09/20 TIME: 09:10 Subjective remains intubated/on sedation on propofol increase R/R on CPAP trial 05/08 AC mode peep 6 fio2 45% Vitals Vital Signs Date Time Temp Pulse Resp B/P (MAP) Pulse Ox O2 Delivery O2 Flow Rate FiO2 05/09/20 08:00 98.0 71 16 153/72 (99) 100 Ventilator 98.0 Comments on vent sedated HEENT: Other (nc at perrl nose clear orally intubated neck no lad no thyromegaly) Lungs: Other (b lat diminished bs ) Cardiovascular: S1, S2 Abdomen: Soft, Non-tender, Other (obese) Extremities: Other (2+edema) Skin: Warm Labs Laboratory Tests Test 05/07/20 11:35 05/07/20 17:42 05/08/20 00:16 05/08/20 06:28 Glucose (Fingerstick) 247 mg/dL (70-99) 294 mg/dL (70-99) 342 mg/dL (70-99) 329 mg/dL (70-99) Test 05/08/20 06:30 05/08/20 08:00 05/08/20 11:11 05/08/20 17:39 Sodium Level 132 mmol/L (136-145) Potassium Level 4.3 mmol/L (3.5-5.1) Chloride Level 96 mmol/L (98-107) Carbon Dioxide Level 31 mmol/L (21-32) Anion Gap 5 (6-14) Blood Urea Nitrogen 70 mg/dL (8-26) Creatinine 1.7 mg/dL (0.7-1.3) Estimated GFR (Cockcroft-Gault) 41.5 Glucose Level 333 mg/dL (70-99) Calcium Level 8.4 mg/dL (8.5-10.1) O2 Saturation 96 % (92-99) Arterial Blood pH 7.49 (7.35-7.45) Arterial Blood pCO2 at Patient Temp 42 mmHg (35-46) Arterial Blood pO2 at Patient Temp 84 mmHg (65-108) Arterial Blood HCO3 31 mmol/L (21-28) Arterial Blood Base Excess 7 mmol/L (-3-3) FiO2 40% vent Glucose (Fingerstick) 332 mg/dL (70-99) 224 mg/dL (70-99) Test 05/09/20 07:25 05/09/20 07:35 05/09/20 08:00 Sodium Level 138 mmol/L (136-145) Potassium Level 4.4 mmol/L (3.5-5.1) Chloride Level 99 mmol/L (98-107) Carbon Dioxide Level 32 mmol/L (21-32) Anion Gap 7 (6-14) Blood Urea Nitrogen 54 mg/dL (8-26) Creatinine 1.3 mg/dL (0.7-1.3) Estimated GFR (Cockcroft-Gault) 56.5 Glucose Level 245 mg/dL (70-99) Calcium Level 8.3 mg/dL (8.5-10.1) Total Bilirubin 2.3 mg/dL (0.2-1.0) Direct Bilirubin 1.9 mg/dL (0.0-0.2) Aspartate Amino Transf (AST/SGOT) 94 U/L (15-37) Alanine Aminotransferase (ALT/SGPT) 154 U/L (16-63) Alkaline Phosphatase 407 U/L (46-116) Total Protein 5.7 g/dL (6.4-8.2) Albumin 1.6 g/dL (3.4-5.0) Glucose (Fingerstick) 236 mg/dL (70-99) O2 Saturation 97 % (92-99) Arterial Blood pH 7.48 (7.35-7.45) Arterial Blood pCO2 at Patient Temp 42 mmHg (35-46) Arterial Blood pO2 at Patient Temp 101 mmHg (65-108) Arterial Blood HCO3 30 mmol/L (21-28) Arterial Blood Base Excess 6 mmol/L (-3-3) FiO2 45 Laboratory Tests Test 05/08/20 11:11 05/08/20 17:39 05/09/20 07:25 05/09/20 07:35 Glucose (Fingerstick) 332 mg/dL (70-99) 224 mg/dL (70-99) 236 mg/dL (70-99) Sodium Level 138 mmol/L (136-145) Potassium Level 4.4 mmol/L (3.5-5.1) Chloride Level 99 mmol/L (98-107) Carbon Dioxide Level 32 mmol/L (21-32) Anion Gap 7 (6-14) Blood Urea Nitrogen 54 mg/dL (8-26) Creatinine 1.3 mg/dL (0.7-1.3) Estimated GFR (Cockcroft-Gault) 56.5 Glucose Level 245 mg/dL (70-99) Calcium Level 8.3 mg/dL (8.5-10.1) Total Bilirubin 2.3 mg/dL (0.2-1.0) Direct Bilirubin 1.9 mg/dL (0.0-0.2) Aspartate Amino Transf (AST/SGOT) 94 U/L (15-37) Alanine Aminotransferase (ALT/SGPT) 154 U/L (16-63) Alkaline Phosphatase 407 U/L (46-116) Total Protein 5.7 g/dL (6.4-8.2) Albumin 1.6 g/dL (3.4-5.0) Test 05/09/20 08:00 O2 Saturation 97 % (92-99) Arterial Blood pH 7.48 (7.35-7.45) Arterial Blood pCO2 at Patient Temp 42 mmHg (35-46) Arterial Blood pO2 at Patient Temp 101 mmHg (65-108) Arterial Blood HCO3 30 mmol/L (21-28) Arterial Blood Base Excess 6 mmol/L (-3-3) FiO2 45 Medications Active Scripts Medications Dose Route/Sig Max Daily Dose Days Date Category [Fluconazole] 100 MG Tablet 200 Mg PO DAILY 10 07/17/19 Rx Amox Tr-K Clv 875-125 Mg Tab (Amoxicillin/Potassium Clav) 1 Each Tablet 1 Tab PO BID 10 07/17/19 Rx Hydrocodone-Acetamin 5-325 mg (Hydrocodone/Acetaminophen) 1 Each Tablet 1 Each PO PRN Q6HRS PRN 03/14/19 Reported Diclofenac Sodium 75 Mg Tablet.dr 1 Tab PO BID 03/14/19 Reported Amlodipine Besylate 5 Mg Tablet 5 Mg PO DAILY 03/14/19 Reported Furosemide 40 Mg Tablet 1 Tab PO DAILY 03/14/19 Reported Lisinopril 30 Mg Tablet 1 Tab PO DAILY 03/14/19 Reported Actos (Pioglitazone Hcl) 30 Mg Tablet 1 Tab PO DAILY 01/31/18 Reported Comments cxr 3/4 increase effusions Impression . 1. Acute hypoxic respiratory failure secondary to acute encephalopathy and acute rhabdomyolysis along with metabolic acidosis. 2. Acute rhabdomyolysis from fall, details not available. Urine drug screen also positive for opiates. Currently on a bicarbonate drip. Metabolic acidosis improving. CK will need to be repeated. 3. Bilateral interstitial infiltrates, likely suspect interstitial edema.now increase effusions 4. Leukopenia, which is now resolved and has leukocytosis, neg COVID. 5. Acute kidney injury secondary to rhabdomyolysis. 6. Hyponatremia. resolved 7. E-Coli sepsis 8. obesity suspect justin Plan . 1. cont vent support setting reviewed, abg reviewed will decrease peep to 5 fio2 to 40%, will decrease sedation sbt when awake 2. Wean FiO2. 3. prn lasix , increase effusions 4. Monitor renal function. 5. antibiotic per ID. 6. Follow Neurology recommendation. 7. DVT prophylaxis. 8. Stress ulcer prophylaxis. 9. psg out pt Discussed with RN and RT. ENRIQUETA LOZANO MD May 09, 2020 09:14
--- NOTE | 2020-05-09 09:49 | PDOC ---
Provider Note Date of Service: DATE: 05/09/20 TIME: 09:46 Provider Note gb sono ok, LFTs about the same, glucose still up so more lantus as insulin resistant, follow , ro has NAFLD re poorly controlled dm Justifications for Admission Other Justification MARGARET DUDLEY MD May 09, 2020 09:49
--- NOTE | 2020-05-09 10:11 | PDOC ---
DATE OF SERVICE DATE: 05/09/20 TIME: 10:11 SUBJECTIVE ROS Remains intubated, on Vent OBJECTIVE Vital Signs Vital Signs Date Time Temp Pulse Resp B/P (MAP) Pulse Ox O2 Delivery O2 Flow Rate FiO2 05/09/20 10:00 73 16 154/65 (94) 100 Ventilator 05/09/20 08:00 98.0 98.0 I & 0 Intake and Output 05/09/20 07:00 Intake Total 1955 ml Output Total 4005 ml Balance -2050 ml Intake Oral 0 ml IV Total 724 ml Tube Feeding 1031 ml Other 200 ml Output Urine Total 4005 ml Gastric Drainage Total 0 ml # Bowel Movements 1 PHYSICAL EXAM Physical Exam GENERAL: Intubated HEENT: Both pupils are round and reacting. Orally intubated NECK: Supple, LUNGS: Decreased breath sounds. HEART: S1, S2 regular. No gallop or murmur. ABDOMEN: Soft, obese EXTREMITIES: Bilat LE edema 3++ SKIN: Unremarkable, No Rash NEUROLOGIC: orally intubated, [place] present PSYCH Unable to assess DIAGNOSIS/ASSESSMENT Assessment & Plan AUGUSTINE - Currently Non Oliguric , ATN, sepsis , renal function improving . Avoid nephrotoxins Edema - IV lasix prn , if enal function stays can consider Lasix gtt . Severe Hypoalbuminemia HypoNatremia - resolved correct for high glucose DM- BS high Primary managing Metabolic Acidosis POA - resolved Sepsis- Gram negative rods UTI - E Coli on culture, Elevated LFT's Rhabdo- minimally elevated CK at presentation Acute hypoxic respiratory failure secondary to acute encephalopathy . Cxr 4/3 Increased moderate bilateral pleural effusions. Increased hazy bibasilar opacit ies, probably layering pleural fluid Encephalopathy. Severe Hypoalbumniemia - currently on TF Leukopenia POA - resolved, Thrombocytopenia - hem/Onc consulted, K/L mildly elevated . No M spike COMMENT/RELEVANT DATA Meds Current Medications Medications (Trade) Dose Ordered Sig/Triny Start Time Stop Time Status Last Admin Dose Admin Ceftriaxone Sodium (Rocephin) 1 gm 1X ONCE 05/04/20 11:45 05/04/20 11:46 DC 05/04/20 11:33 1 GM Daptomycin 700 mg/ Sodium Chloride 50 ml @ 100 mls/hr Q48H 05/05/20 09:00 05/06/20 09:09 DC 05/05/20 08:42 100 MLS/HR Dextrose (Dextrose 50%-Water Syringe) 12.5 gm PRN Q15MIN PRN 05/05/20 09:15 Etomidate (Amidate) 20 mg STK-MED ONCE 05/04/20 18:00 05/05/20 12:28 DC Famotidine (Pepcid Vial) 20 mg QHS 05/05/20 21:00 05/08/20 21:36 20 MG Fentanyl Citrate (Fentanyl 2ml Vial) 100 mcg STK-MED ONCE 05/06/20 11:40 05/07/20 08:51 DC Furosemide (Lasix) 40 mg 1X ONCE 05/08/20 10:00 05/08/20 10:01 DC 05/08/20 09:32 40 MG Heparin Sodium (Porcine) (Heparin Sodium) 5,000 unit Q8HRS 05/05/20 14:00 05/09/20 07:44 5,000 UNIT Insulin Glargine (Lantus Syringe) 100 unit DAILY 05/10/20 09:00 Insulin Human Lispro (HumaLOG) 0-7 UNITS Q6HRS 05/05/20 12:00 05/09/20 07:43 4 UNITS Midazolam HCl 100 ml @ 0 mls/hr CONT PRN 05/04/20 18:15 05/06/20 19:09 5 MLS/HR Naloxone HCl (Narcan) 0.4 mg 1X ONCE 05/04/20 17:00 05/04/20 17:01 DC 05/04/20 17:00 0.4 MG Norepinephrine Bitartrate 32 mg/ Dextrose 282 ml @ 9.65 mls/hr CONT PRN 05/04/20 18:15 05/06/20 14:08 12.6 MLS/HR Norepinephrine Bitartrate 8 mg/ Dextrose 258 ml @ 35.314 mls/ hr CONT PRN 05/04/20 17:00 05/04/20 18:09 DC 05/04/20 17:00 35.314 MLS/HR Pantoprazole Sodium (PROTONIX VIAL for IV PUSH) 40 mg DAILYAC 05/10/20 07:30 UNV Phenylephrine HCl (PHENYLEPHRINE in 0.9% NACL PF) 1 mg STK-MED ONCE 05/04/20 18:00 05/05/20 12:11 DC Piperacillin Sod/ Tazobactam Sod 2.25 gm/Sodium Chloride 50 ml @ 100 mls/hr Q6HRS 05/05/20 08:00 05/06/20 08:39 DC 05/06/20 06:36 100 MLS/HR Piperacillin Sod/ Tazobactam Sod 3.375 gm/Sodium Chloride 50 ml @ 100 mls/hr Q6HRS 05/06/20 12:00 05/09/20 07:39 100 MLS/HR Propofol 100 ml @ 5.247 mls/ hr CONT PRN 05/07/20 09:30 05/09/20 08:07 26.235 MLS/HR Propofol (Diprivan) 1,000 mg STK-MED ONCE 05/04/20 18:00 05/05/20 12:28 DC Rocuronium [place] (Zemuron) 50 mg STK-MED ONCE 05/04/20 18:00 05/05/20 12:28 DC Sodium Bicarbonate 150 meq/Dextrose 1,150 ml @ 150 mls/hr Q7H40M 05/04/20 18:30 05/06/20 16:49 DC 05/06/20 07:44 150 MLS/HR Sodium Chloride 1,000 ml @ 1,000 mls/hr 1X ONCE 05/04/20 11:45 05/04/20 12:44 DC 05/04/20 11:32 1,000 MLS/HR Succinylcholine Chloride (Anectine) 200 mg STK-MED ONCE 05/04/20 18:00 05/05/20 12:28 DC Lab Laboratory Tests Test 05/08/20 11:11 05/08/20 17:39 05/09/20 07:25 05/09/20 07:35 Glucose (Fingerstick) 332 mg/dL (70-99) 224 mg/dL (70-99) 236 mg/dL (70-99) Sodium Level 138 mmol/L (136-145) Potassium Level 4.4 mmol/L (3.5-5.1) Chloride Level 99 mmol/L (98-107) Carbon Dioxide Level 32 mmol/L (21-32) Anion Gap 7 (6-14) Blood Urea Nitrogen 54 mg/dL (8-26) Creatinine 1.3 mg/dL (0.7-1.3) Estimated GFR (Cockcroft-Gault) 56.5 Glucose Level 245 mg/dL (70-99) Calcium Level 8.3 mg/dL (8.5-10.1) Total Bilirubin 2.3 mg/dL (0.2-1.0) Direct Bilirubin 1.9 mg/dL (0.0-0.2) Aspartate Amino Transf (AST/SGOT) 94 U/L (15-37) Alanine Aminotransferase (ALT/SGPT) 154 U/L (16-63) Alkaline Phosphatase 407 U/L (46-116) Total Protein 5.7 g/dL (6.4-8.2) Albumin 1.6 g/dL (3.4-5.0) Test 05/09/20 08:00 O2 Saturation 97 % (92-99) Arterial Blood pH 7.48 (7.35-7.45) Arterial Blood pCO2 at Patient Temp 42 mmHg (35-46) Arterial Blood pO2 at Patient Temp 101 mmHg (65-108) Arterial Blood HCO3 30 mmol/L (21-28) Arterial Blood Base Excess 6 mmol/L (-3-3) FiO2 45 Results All relevant outside records, renal labs, imaging studies, telemetry/EKG's were reviewed. Justicifation of Admission Dx: Justifications for Admission: Justification of Admission Dx: N/A LEYDI MOSLEY MD May 09, 2020 10:11
[2020-05-09] MEDS ORDERED: FUROSEMIDE 40 MG/4 ML VIAL. IVP ONE (11:00)
[2020-05-09] MEDS ORDERED: hydrALAZINE 20 MG/ML VIAL. IVP PRN (11:15)
--- NOTE | 2020-05-09 11:51 | NUR ---
Sedation turned off patient to start CPAP trial, Dr. Hunt requested pressure support of 5 with a peep of 5. Patient woke up, eyes were open and moving arms appropriately. CPAP trial started by RT, after about a minute, patient's respiratory rate was 46 and tidal volume was around 290, BP was 190/80, HR maintained in the 70s. Patient switched back over to previous ventilator settings and re-sedated.
[2020-05-09] MEDS: fentaNYL PF VIAL 100 MCG/2 ML VIAL IVP PRN ×2 (11:59→16:56)
[2020-05-10] VITALS (25 sets, daily range): BP systolic 94–180; BP diastolic 52–72
[2020-05-10] MEDS: PIPERACILLIN/TAZOBACTAM 3.375 GM in IV NORMAL SALINE 50ML 50 ML IV SCH ×5 (00:39→23:57)
[2020-05-10] MEDS: INSULIN LISPRO 300 UNITS/3 ML VIAL. SQ SCH ×4 (00:42→17:07)
[2020-05-10] MEDS: PROPOFOL 100 ML IV PRN ×3 (01:25→06:17)
[2020-05-10] MEDS: HEPARIN for SUB-Q USE 5,000 UNIT/ML VIAL. SQ SCH ×3 (05:45→22:16)
[2020-05-10 06:18] LABS: CALCIUM 8.4 mg/dL (8.5-10.1); CREATININE 1.1 mg/dL (0.7-1.3); GFR 68.5; POTASSIUM 4.2 mmol/L (3.5-5.1)
--- NOTE | 2020-05-10 08:12 | PDOC ---
Provider Note Date of Service: DATE: 05/10/20 TIME: 08:11 Provider Note same resp status, glucose still high- edema from low albumin- will onc lantus to 110, follow TAs/platlets, will need lasix re edema Justifications for Admission Other Justification MARGARET DUDLEY MD May 10, 2020 08:12
[2020-05-10] MEDS: PANTOPRAZOLE IV PUSH 40 MG VIAL. IVP SCH (08:19)
--- NOTE | 2020-05-10 08:42 | PDOC ---
Infectious Disease Note Subjective Subjective pt is intubated on vent ROS ROS No nausea vomiting diarrhea Vital Sign Vital Signs Vital Signs Date Time Temp Pulse Resp B/P (MAP) Pulse Ox O2 Delivery O2 Flow Rate FiO2 05/10/20 07:57 100 Ventilator 05/10/20 07:00 75 16 159/63 (95) 05/10/20 04:00 98.8 98.8 Physical Exam PHYSICAL EXAM GENERAL: Sedated, orally intubated gentleman, not in any distress. VITAL SIGNS: stable HEENT: Both pupils are round and reacting. No conjunctival lesion. Orally intubated, unable to see the mouth. NECK: Supple, no JVP, no lymphadenopathy. LUNGS: Decreased breath sounds. HEART: S1, S2 regular. No gallop or murmur. ABDOMEN: Soft, nontender, no organomegaly. EXTREMITIES: No edema or cyanosis. SKIN: Unremarkable. 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 Labs Lab Laboratory Tests Test 05/09/20 11:15 05/09/20 16:51 05/10/20 00:40 05/10/20 05:30 Glucose (Fingerstick) 223 mg/dL (70-99) 234 mg/dL (70-99) 285 mg/dL (70-99) Sodium Level 141 mmol/L (136-145) Potassium Level 4.2 mmol/L (3.5-5.1) Chloride Level 102 mmol/L (98-107) Carbon Dioxide Level 33 mmol/L (21-32) Anion Gap 6 (6-14) Blood Urea Nitrogen 48 mg/dL (8-26) Creatinine 1.1 mg/dL (0.7-1.3) Estimated GFR (Cockcroft-Gault) 68.5 Glucose Level 267 mg/dL (70-99) Calcium Level 8.4 mg/dL (8.5-10.1) Test 05/10/20 05:31 Glucose (Fingerstick) 264 mg/dL (70-99) Micro BLOOD CULTURE LC Final Final GRAM NEGATIVE RODS FINAL ID= [ESCHERICHIA COLI] ESCHERICHIA COLI ANTIMICROBIAL SUSCEPTIBILITY Final Comment NEG RAD 56 ESCHERICHIA COLI ANTIBIOTIC RESULT INTERPRETATION AMPICILLIN/SULBACTAM <=4/2 S AMIKACIN <=16 S AMPICILLIN <=8 S AMOXICILLIN/K CLAVULANATE <=8/4 S AZTREONAM <=4 S CEFTRIAXONE <=1 S CEFTAZIDIME <=1 S CEFOTAXIME <=2 S CEFOXITIN <=8 S CEFAZOLIN <=2 S CIPROFLOXACIN <=0.25 S CEFEPIME <=2 S CEFUROXIME 8 S CEFTAZIDIME/AVIBACTAM <=4 S ERTAPENEM <=0.5 S GENTAMICIN <=2 S LEVOFLOXACIN <=0.5 S MEROPENEM <=1 S PIPERACILLIN/TAZOBACTAM <=8 S TRIMETHOPRIM/SULFAMETHOXAZOLE <=0.5/9.5 S TETRACYCLINE <=4 S TOBRAMYCIN <=2 S Unless otherwise specified, Testing Performed by: [address] [address] For Inquires, the Physician may contact the Microbiology department at [phone] Objective Assessment IMPRESSION: 1. Encephalopathy. 2. Leukopenia, from sepsis , now leukocytosis 3. Respiratory failure. 4. Hyponatremia. 5. Acute kidney injury. 6. Circulatory failure. 7. Obesity. 8. COVID neg 9 G neg selvin sepsis/ E coli 10 UTI with sepsis Plan Plan of Care 1. Continue supportive care. 2. Hydration. 3. cont Zosyn. CURT POST MD May 10, 2020 08:42
[2020-05-10 08:43] LABS: BASE EXCESS ABG 7 mmol/L (-3-3); HCO3 ABG 32 mmol/L (21-28); PCO2 ABG 44 mmHg (35-46); PO2 ABG 76 mmHg (65-108); SAT O2 ABG 95 % (92-99)
[2020-05-10 09:00] LABS: FIO2 ABG 40% VENT
[2020-05-10] MEDS ORDERED: INSULIN GLARGINE SYRINGE. SQ SCH (09:00)
--- NOTE | 2020-05-10 09:42 | PDOC ---
PULMONARY PROGRESS NOTES DATE: 05/10/20 TIME: 09:41 Subjective remains intubated/on sedation on propofol increase rr on CPAP trial 05/09, agitated off sedation AC mode peep 5 fio2 40% mod ett secretion Vitals Vital Signs Date Time Temp Pulse Resp B/P (MAP) Pulse Ox O2 Delivery O2 Flow Rate FiO2 05/10/20 09:00 76 16 137/59 (85) 100 Ventilator 05/10/20 08:00 98.3 98.3 Comments on vent sedated HEENT: Other (nc at perrl nose clear orally intubated neck no lad no thyromegaly) Lungs: Other (b lat diminished bs ) Cardiovascular: S1, S2 Abdomen: Soft, Non-tender, Other (obese) Extremities: Other (2+edema) Skin: Warm Labs Laboratory Tests Test 05/08/20 11:11 05/08/20 17:39 05/09/20 07:25 05/09/20 07:35 Glucose (Fingerstick) 332 mg/dL (70-99) 224 mg/dL (70-99) 236 mg/dL (70-99) Sodium Level 138 mmol/L (136-145) Potassium Level 4.4 mmol/L (3.5-5.1) Chloride Level 99 mmol/L (98-107) Carbon Dioxide Level 32 mmol/L (21-32) Anion Gap 7 (6-14) Blood Urea Nitrogen 54 mg/dL (8-26) Creatinine 1.3 mg/dL (0.7-1.3) Estimated GFR (Cockcroft-Gault) 56.5 Glucose Level 245 mg/dL (70-99) Calcium Level 8.3 mg/dL (8.5-10.1) Total Bilirubin 2.3 mg/dL (0.2-1.0) Direct Bilirubin 1.9 mg/dL (0.0-0.2) Aspartate Amino Transf (AST/SGOT) 94 U/L (15-37) Alanine Aminotransferase (ALT/SGPT) 154 U/L (16-63) Alkaline Phosphatase 407 U/L (46-116) Total Protein 5.7 g/dL (6.4-8.2) Albumin 1.6 g/dL (3.4-5.0) Test 05/09/20 08:00 05/09/20 11:15 05/09/20 16:51 05/10/20 00:40 O2 Saturation 97 % (92-99) Arterial Blood pH 7.48 (7.35-7.45) Arterial Blood pCO2 at Patient Temp 42 mmHg (35-46) Arterial Blood pO2 at Patient Temp 101 mmHg (65-108) Arterial Blood HCO3 30 mmol/L (21-28) Arterial Blood Base Excess 6 mmol/L (-3-3) FiO2 45 Glucose (Fingerstick) 223 mg/dL (70-99) 234 mg/dL (70-99) 285 mg/dL (70-99) Test 05/10/20 05:30 05/10/20 05:31 05/10/20 08:00 05/10/20 08:34 Sodium Level 141 mmol/L (136-145) Potassium Level 4.2 mmol/L (3.5-5.1) Chloride Level 102 mmol/L (98-107) Carbon Dioxide Level 33 mmol/L (21-32) Anion Gap 6 (6-14) Blood Urea Nitrogen 48 mg/dL (8-26) Creatinine 1.1 mg/dL (0.7-1.3) Estimated GFR (Cockcroft-Gault) 68.5 Glucose Level 267 mg/dL (70-99) Calcium Level 8.4 mg/dL (8.5-10.1) Glucose (Fingerstick) 264 mg/dL (70-99) O2 Saturation 95 % (92-99) Arterial Blood pH 7.47 (7.35-7.45) Arterial Blood pCO2 at Patient Temp 44 mmHg (35-46) Arterial Blood pO2 at Patient Temp 76 mmHg (65-108) Arterial Blood HCO3 32 mmol/L (21-28) Arterial Blood Base Excess 7 mmol/L (-3-3) FiO2 40% vent Platelet Count 194 x10^3/uL (140-400) Laboratory Tests Test 05/09/20 11:15 05/09/20 16:51 05/10/20 00:40 05/10/20 05:30 Glucose (Fingerstick) 223 mg/dL (70-99) 234 mg/dL (70-99) 285 mg/dL (70-99) Sodium Level 141 mmol/L (136-145) Potassium Level 4.2 mmol/L (3.5-5.1) Chloride Level 102 mmol/L (98-107) Carbon Dioxide Level 33 mmol/L (21-32) Anion Gap 6 (6-14) Blood Urea Nitrogen 48 mg/dL (8-26) Creatinine 1.1 mg/dL (0.7-1.3) Estimated GFR (Cockcroft-Gault) 68.5 Glucose Level 267 mg/dL (70-99) Calcium Level 8.4 mg/dL (8.5-10.1) Test 05/10/20 05:31 05/10/20 08:00 05/10/20 08:34 Glucose (Fingerstick) 264 mg/dL (70-99) O2 Saturation 95 % (92-99) Arterial Blood pH 7.47 (7.35-7.45) Arterial Blood pCO2 at Patient Temp 44 mmHg (35-46) Arterial Blood pO2 at Patient Temp 76 mmHg (65-108) Arterial Blood HCO3 32 mmol/L (21-28) Arterial Blood Base Excess 7 mmol/L (-3-3) FiO2 40% vent Platelet Count 194 x10^3/uL (140-400) Medications Active Scripts Medications Dose Route/Sig Max Daily Dose Days Date Category [Fluconazole] 100 MG Tablet 200 Mg PO DAILY 10 07/17/19 Rx Amox Tr-K Clv 875-125 Mg Tab (Amoxicillin/Potassium Clav) 1 Each Tablet 1 Tab PO BID 10 07/17/19 Rx Hydrocodone-Acetamin 5-325 mg (Hydrocodone/Acetaminophen) 1 Each Tablet 1 Each PO PRN Q6HRS PRN 03/14/19 Reported Diclofenac Sodium 75 Mg Tablet.dr 1 Tab PO BID 03/14/19 Reported Amlodipine Besylate 5 Mg Tablet 5 Mg PO DAILY 03/14/19 Reported Furosemide 40 Mg Tablet 1 Tab PO DAILY 03/14/19 Reported Lisinopril 30 Mg Tablet 1 Tab PO DAILY 03/14/19 Reported Actos (Pioglitazone Hcl) 30 Mg Tablet 1 Tab PO DAILY 01/31/18 Reported Comments cxr 3/4 increase effusions Impression . 1. Acute hypoxic respiratory failure secondary to acute encephalopathy and acute rhabdomyolysis along with metabolic acidosis. 2. Acute rhabdomyolysis from fall, details not available. Urine drug screen also positive for opiates. Currently on a bicarbonate drip. Metabolic acidosis improving. CK will need to be repeated. 3. Bilateral interstitial infiltrates, likely suspect interstitial edema.now increase effusions 4. Leukopenia, which is now resolved and has leukocytosis, improving, neg COVID. 5. Acute kidney injury secondary to rhabdomyolysis. 6. Hyponatremia. resolved 7. E-Coli sepsis 8. obesity suspect justin Plan . 1. cont vent support setting reviewed, abg reviewed on 5, fio2 to 40%, agitated off sedation will add prcedex try to taper off propofol sbt when more awake 2. Wean FiO2. 3. lasix 40 mg iv x 1 4. Monitor renal function. 5. antibiotic per ID. 6. Follow Neurology recommendation. 7. DVT prophylaxis. 8. Stress ulcer prophylaxis. 9. psg out pt Discussed with RN and RT. ENRIQUETA LOZANO MD May 10, 2020 09:42
[2020-05-10] MEDS: INSULIN GLARGINE SYRINGE. SQ SCH (10:05)
[2020-05-10] MEDS ORDERED: IV NORMAL SALINE 500ML BAG 500 ML IV PRN (10:30)
[2020-05-10] MEDS ORDERED: ATROPINE 0.5 MG/5 ML DISP.SYRINGE. IV PRN (10:30)
--- NOTE | 2020-05-10 10:52 | PDOC ---
DATE OF SERVICE DATE: 05/10/20 TIME: 10:47 SUBJECTIVE ROS Remains intubated, on Vent OBJECTIVE Vital Signs Vital Signs Date Time Temp Pulse Resp B/P (MAP) Pulse Ox O2 Delivery O2 Flow Rate FiO2 05/10/20 10:00 76 16 145/62 (89) 100 Ventilator 05/10/20 08:00 98.3 98.3 I & 0 Intake and Output 05/10/20 07:00 Intake Total 3068 ml Output Total 3670 ml Balance -602 ml IV Total 994 ml Tube Feeding 1774 ml Other 300 ml Output Urine Total 3670 ml Gastric Drainage Total 0 ml # Bowel Movements 1 PHYSICAL EXAM Physical Exam GENERAL: Intubated HEENT: Both pupils are round and reacting. Orally intubated NECK: Supple, LUNGS: Decreased breath sounds. HEART: S1, S2 regular. No gallop or murmur. ABDOMEN: Soft, obese EXTREMITIES: Bilat LE edema 2+, changes of CVI + SKIN: Unremarkable, No Rash NEUROLOGIC: orally intubated, JOSE R Duggan present PSYCH Unable to assess DIAGNOSIS/ASSESSMENT Assessment & Plan AUGUSTINE - Currently Non Oliguric , ATN, sepsis , renal function improving . Avoid nephrotoxins Edema - IV lasix prn x 1 again today , if renal function stable consider Lasix gtt . Severe Hypoalbuminemia HypoNatremia - resolved correct for high glucose DM- BS high Primary managing Metabolic Acidosis POA - resolved Sepsis- Gram negative rods UTI - E Coli on culture, Elevated LFT's Rhabdo- minimally elevated CK at presentation Acute hypoxic respiratory failure secondary to acute encephalopathy . Cxr 4/3 Increased moderate bilateral pleural effusions. Increased hazy bibasilar opacities, probably layering pleural fluid Encephalopathy. Severe Hypoalbumniemia - currently on TF Leukopenia POA - resolved, Thrombocytopenia - hem/Onc consulted, K/L mildly elevated . No M spike COMMENT/RELEVANT DATA Meds Current Medications Medications (Trade) Dose Ordered Sig/Triny Start Time Stop Time Status Last Admin Dose Admin Atropine Sulfate (ATROPINE 0.5mg SYRINGE) 0.5 mg PRN Q5MIN PRN 05/10/20 10:30 Ceftriaxone Sodium (Rocephin) 1 gm 1X ONCE 05/04/20 11:45 05/04/20 11:46 DC 05/04/20 11:33 1 GM Daptomycin 700 mg/ Sodium Chloride 50 ml @ 100 mls/hr Q48H 05/05/20 09:00 05/06/20 09:09 DC 05/05/20 08:42 100 MLS/HR Dexmedetomidine HCl 400 mcg/ Sodium Chloride 100 ml @ 0 mls/hr CONT PRN 05/10/20 10:30 Dextrose (Dextrose 50%-Water Syringe) 12.5 gm PRN Q15MIN PRN 05/05/20 09:15 Etomidate (Amidate) 20 mg STK-MED ONCE 05/04/20 18:00 05/05/20 12:28 DC Famotidine (Pepcid Vial) 20 mg QHS 05/05/20 21:00 05/09/20 10:18 DC 05/08/20 21:36 20 MG Fentanyl Citrate (Fentanyl 2ml Vial) 100 mcg STK-MED ONCE 05/06/20 11:40 05/07/20 08:51 DC Furosemide (Lasix) 40 mg 1X ONCE 05/09/20 11:00 05/09/20 11:02 DC 05/09/20 11:09 40 MG Heparin Sodium (Porcine) (Heparin Sodium) 5,000 unit Q8HRS 05/05/20 14:00 05/10/20 05:45 5,000 UNIT Hydralazine HCl (Apresoline Inj) 10 mg PRN Q4HRS PRN 05/09/20 11:15 05/09/20 11:10 10 MG Insulin Glargine (Lantus Syringe) 110 unit DAILY 05/10/20 09:00 05/10/20 10:05 110 UNIT Insulin Human Lispro (HumaLOG) 0-7 UNITS Q6HRS 05/05/20 12:00 05/10/20 05:33 6 UNITS Midazolam HCl 100 ml @ 0 mls/hr CONT PRN 05/04/20 18:15 05/06/20 19:09 5 MLS/HR Naloxone HCl (Narcan) 0.4 mg 1X ONCE 05/04/20 17:00 05/04/20 17:01 DC 05/04/20 17:00 0.4 MG Norepinephrine Bitartrate 32 mg/ Dextrose 282 ml @ 9.65 mls/hr CONT PRN 05/04/20 18:15 05/06/20 14:08 12.6 MLS/HR Norepinephrine Bitartrate 8 mg/ Dextrose 258 ml @ 35.314 mls/ hr CONT PRN 05/04/20 17:00 05/04/20 18:09 DC 05/04/20 17:00 35.314 MLS/HR Pantoprazole Sodium (PROTONIX VIAL for IV PUSH) 40 mg DAILYAC 05/10/20 07:30 05/10/20 08:19 40 MG Phenylephrine HCl (PHENYLEPHRINE in 0.9% NACL PF) 1 mg STK-MED ONCE 05/04/20 18:00 05/05/20 12:11 DC Piperacillin Sod/ Tazobactam Sod 2.25 gm/Sodium Chloride 50 ml @ 100 mls/hr Q6HRS 05/05/20 08:00 05/06/20 08:39 DC 05/06/20 06:36 100 MLS/HR Piperacillin Sod/ Tazobactam Sod 3.375 gm/Sodium Chloride 50 ml @ 100 mls/hr Q6HRS 05/06/20 12:00 05/10/20 05:29 100 MLS/HR Propofol 100 ml @ 5.247 mls/ hr CONT PRN 05/07/20 09:30 05/10/20 06:17 36.729 MLS/HR Propofol (Diprivan) 1,000 mg STK-MED ONCE 05/04/20 18:00 05/05/20 12:28 DC Rocuronium [place] (Zemuron) 50 mg STK-MED ONCE 05/04/20 18:00 05/05/20 12:28 DC Sodium Bicarbonate 150 meq/Dextrose 1,150 ml @ 150 mls/hr Q7H40M 05/04/20 18:30 05/06/20 16:49 DC 05/06/20 07:44 150 MLS/HR Sodium Chloride 500 ml @ 500 mls/hr 1X PRN PRN 05/10/20 10:30 Succinylcholine Chloride (Anectine) 200 mg STK-MED ONCE 05/04/20 18:00 05/05/20 12:28 DC Lab Laboratory Tests Test 05/09/20 11:15 05/09/20 16:51 05/10/20 00:40 05/10/20 05:30 Glucose (Fingerstick) 223 mg/dL (70-99) 234 mg/dL (70-99) 285 mg/dL (70-99) Sodium Level 141 mmol/L (136-145) Potassium Level 4.2 mmol/L (3.5-5.1) Chloride Level 102 mmol/L (98-107) Carbon Dioxide Level 33 mmol/L (21-32) Anion Gap 6 (6-14) Blood Urea Nitrogen 48 mg/dL (8-26) Creatinine 1.1 mg/dL (0.7-1.3) Estimated GFR (Cockcroft-Gault) 68.5 Glucose Level 267 mg/dL (70-99) Calcium Level 8.4 mg/dL (8.5-10.1) Test 05/10/20 05:31 05/10/20 08:00 05/10/20 08:34 Glucose (Fingerstick) 264 mg/dL (70-99) O2 Saturation 95 % (92-99) Arterial Blood pH 7.47 (7.35-7.45) Arterial Blood pCO2 at Patient Temp 44 mmHg (35-46) Arterial Blood pO2 at Patient Temp 76 mmHg (65-108) Arterial Blood HCO3 32 mmol/L (21-28) Arterial Blood Base Excess 7 mmol/L (-3-3) FiO2 40% vent Platelet Count 194 x10^3/uL (140-400) Results All relevant outside records, renal labs, imaging studies, telemetry/EKG's were reviewed. Justicifation of Admission Dx: Justifications for Admission: Justification of Admission Dx: N/A LEYDI MOSLEY MD May 10, 2020 10:52
[2020-05-10] MEDS ORDERED: FUROSEMIDE 40 MG/4 ML VIAL. IVP ONE (11:00)
[2020-05-10] MEDS: DEXMEDETOMIDINE 400 MCG in IV NORMAL SALINE 100ML 96 ML IV PRN ×5 (11:20→23:13)
[2020-05-10] MEDS ORDERED: DAPTOMYCIN IV SCH (20:00)
[2020-05-10] MEDS ORDERED: NORMAL SALINE IV SCH (20:00)
[2020-05-10] MEDS ORDERED: ACETAMINOPHEN 650 MG/20.3 ML SOLUTION. PEG PRN (20:00)
[2020-05-11] VITALS (27 sets, daily range): BP systolic 101–151; BP diastolic 38–67
[2020-05-11] MEDS: fentaNYL PF VIAL 100 MCG/2 ML VIAL IVP PRN ×2 (01:47→08:10)
[2020-05-11] MEDS: DEXMEDETOMIDINE 400 MCG in IV NORMAL SALINE 100ML 96 ML IV PRN ×4 (02:22→11:37)
[2020-05-11] MEDS: PIPERACILLIN/TAZOBACTAM 3.375 GM in IV NORMAL SALINE 50ML 50 ML IV SCH (05:31)
[2020-05-11] MEDS: HEPARIN for SUB-Q USE 5,000 UNIT/ML VIAL. SQ SCH ×3 (05:31→22:15)
[2020-05-11] MEDS: INSULIN LISPRO 300 UNITS/3 ML VIAL. SQ SCH ×4 (05:32→18:00)
[2020-05-11 06:16] LABS: CALCIUM 7.8 mg/dL (8.5-10.1); CREATININE 1.3 mg/dL (0.7-1.3); GFR 56.5
[2020-05-11 06:22] LABS: ALBUMIN 1.5 g/dL (3.4-5.0); TOTAL BILIRUBIN 1.5 mg/dL (0.2-1.0); TOTAL PROTEIN 6.7 g/dL (6.4-8.2)
[2020-05-11 07:27] LABS: BASE EXCESS ABG 3 mmol/L (-3-3); HCO3 ABG 27 mmol/L (21-28); PCO2 ABG 39 mmHg (35-46); PO2 ABG 101 mmHg (65-108); SAT O2 ABG 97 % (92-99)
[2020-05-11 07:39] LABS: FIO2 ABG 40
--- NOTE | 2020-05-11 07:39 | PDOC ---
Infectious Disease Note Subjective Subjective pt is intubated on vent ROS ROS no n/v/d/sob Vital Sign Vital Signs Vital Signs Date Time Temp Pulse Resp B/P (MAP) Pulse Ox O2 Delivery O2 Flow Rate FiO2 05/11/20 07:21 98 Ventilator 05/11/20 07:00 60 24 139/64 (89) 05/11/20 04:00 99.5 99.5 Physical Exam PHYSICAL EXAM GENERAL: Sedated, orally intubated gentleman, not in any distress. VITAL SIGNS: stable HEENT: Both pupils are round and reacting. No conjunctival lesion. Orally intubated, unable to see the mouth. NECK: Supple, no JVP, no lymphadenopathy. LUNGS: Decreased breath sounds. HEART: S1, S2 regular. No gallop or murmur. ABDOMEN: Soft, nontender, no organomegaly. EXTREMITIES: No edema or cyanosis. SKIN: Unremarkable. NEUROLOGIC: The patient is sedated, orally intubated, unable to placing judge, although he was moving all the extremities before intubation as per the RN. Labs Lab Laboratory Tests Test 05/10/20 08:00 05/10/20 08:34 05/10/20 12:07 05/10/20 17:06 O2 Saturation 95 % (92-99) Arterial Blood pH 7.47 (7.35-7.45) Arterial Blood pCO2 at Patient Temp 44 mmHg (35-46) Arterial Blood pO2 at Patient Temp 76 mmHg (65-108) Arterial Blood HCO3 32 mmol/L (21-28) Arterial Blood Base Excess 7 mmol/L (-3-3) FiO2 40% vent Platelet Count 194 x10^3/uL (140-400) Glucose (Fingerstick) 265 mg/dL (70-99) 205 mg/dL (70-99) Test 05/10/20 23:59 05/11/20 05:30 05/11/20 05:32 Glucose (Fingerstick) 235 mg/dL (70-99) 241 mg/dL (70-99) Sodium Level 145 mmol/L (136-145) Potassium Level 4.0 mmol/L (3.5-5.1) Chloride Level 108 mmol/L (98-107) Carbon Dioxide Level 31 mmol/L (21-32) Anion Gap 6 (6-14) Blood Urea Nitrogen 55 mg/dL (8-26) Creatinine 1.3 mg/dL (0.7-1.3) Estimated GFR (Cockcroft-Gault) 56.5 Glucose Level 249 mg/dL (70-99) Calcium Level 7.8 mg/dL (8.5-10.1) Total Bilirubin 1.5 mg/dL (0.2-1.0) Direct Bilirubin 1.0 mg/dL (0.0-0.2) Aspartate Amino Transf (AST/SGOT) 43 U/L (15-37) Alanine Aminotransferase (ALT/SGPT) 78 U/L (16-63) Alkaline Phosphatase 273 U/L (46-116) Total Protein 6.7 g/dL (6.4-8.2) Albumin 1.5 g/dL (3.4-5.0) Micro BLOOD CULTURE LC Final Final GRAM NEGATIVE RODS FINAL ID= [ESCHERICHIA COLI] ESCHERICHIA COLI ANTIMICROBIAL SUSCEPTIBILITY Final Comment NEG RAD 56 ESCHERICHIA COLI ANTIBIOTIC RESULT INTERPRETATION AMPICILLIN/SULBACTAM <=4/2 S AMIKACIN <=16 S AMPICILLIN <=8 S AMOXICILLIN/K CLAVULANATE <=8/4 S AZTREONAM <=4 S CEFTRIAXONE <=1 S CEFTAZIDIME <=1 S CEFOTAXIME <=2 S CEFOXITIN <=8 S CEFAZOLIN <=2 S CIPROFLOXACIN <=0.25 S CEFEPIME <=2 S CEFUROXIME 8 S CEFTAZIDIME/AVIBACTAM <=4 S ERTAPENEM <=0.5 S GENTAMICIN <=2 S LEVOFLOXACIN <=0.5 S MEROPENEM <=1 S PIPERACILLIN/TAZOBACTAM <=8 S TRIMETHOPRIM/SULFAMETHOXAZOLE <=0.5/9.5 S TETRACYCLINE <=4 S TOBRAMYCIN <=2 S Unless otherwise specified, Testing Performed by: [address] [address] For Inquires, the Physician may contact the Microbiology department at [phone] Objective Assessment IMPRESSION: 1. Encephalopathy. 2. Leukopenia, from sepsis , now leukocytosis 3. Respiratory failure. 4. Hyponatremia. 5. Acute kidney injury. 6. Circulatory failure. 7. Obesity. 8. COVID neg 9 G neg selvin sepsis/ E coli 10 UTI with sepsis Plan Plan of Care 1. Continue supportive care. 2. Hydration. 3. cont Zosyn. CURT POST MD May 11, 2020 07:39
[2020-05-11] MEDS: PANTOPRAZOLE IV PUSH 40 MG VIAL. IVP SCH (08:10)
[2020-05-11] MEDS: INSULIN GLARGINE SYRINGE. SQ SCH (08:11)
--- NOTE | 2020-05-11 09:23 | PDOC ---
PULMONARY PROGRESS NOTES DATE: 05/11/20 TIME: 09:23 Subjective Patient currently on assist control ventilation, 40%, 5 of PEEP Sedated No overnight events Vitals Vital Signs Date Time Temp Pulse Resp B/P (MAP) Pulse Ox O2 Delivery O2 Flow Rate FiO2 05/11/20 09:00 98 Ventilator 05/11/20 09:00 49 17 127/55 (79) 05/11/20 08:00 99.3 99.3 Comments on vent sedated Lungs: Other (b lat diminished bs ) Cardiovascular: S1, S2 Abdomen: Soft, Non-tender, Other (obese) Extremities: Other (2+edema) Skin: Warm Labs Laboratory Tests Test 05/09/20 11:15 05/09/20 16:51 05/10/20 00:40 05/10/20 05:30 Glucose (Fingerstick) 223 mg/dL (70-99) 234 mg/dL (70-99) 285 mg/dL (70-99) Sodium Level 141 mmol/L (136-145) Potassium Level 4.2 mmol/L (3.5-5.1) Chloride Level 102 mmol/L (98-107) Carbon Dioxide Level 33 mmol/L (21-32) Anion Gap 6 (6-14) Blood Urea Nitrogen 48 mg/dL (8-26) Creatinine 1.1 mg/dL (0.7-1.3) Estimated GFR (Cockcroft-Gault) 68.5 Glucose Level 267 mg/dL (70-99) Calcium Level 8.4 mg/dL (8.5-10.1) Test 05/10/20 05:31 05/10/20 08:00 05/10/20 08:34 05/10/20 12:07 Glucose (Fingerstick) 264 mg/dL (70-99) 265 mg/dL (70-99) O2 Saturation 95 % (92-99) Arterial Blood pH 7.47 (7.35-7.45) Arterial Blood pCO2 at Patient Temp 44 mmHg (35-46) Arterial Blood pO2 at Patient Temp 76 mmHg (65-108) Arterial Blood HCO3 32 mmol/L (21-28) Arterial Blood Base Excess 7 mmol/L (-3-3) FiO2 40% vent Platelet Count 194 x10^3/uL (140-400) Test 05/10/20 17:06 05/10/20 23:59 05/11/20 05:30 05/11/20 05:32 Glucose (Fingerstick) 205 mg/dL (70-99) 235 mg/dL (70-99) 241 mg/dL (70-99) Sodium Level 145 mmol/L (136-145) Potassium Level 4.0 mmol/L (3.5-5.1) Chloride Level 108 mmol/L (98-107) Carbon Dioxide Level 31 mmol/L (21-32) Anion Gap 6 (6-14) Blood Urea Nitrogen 55 mg/dL (8-26) Creatinine 1.3 mg/dL (0.7-1.3) Estimated GFR (Cockcroft-Gault) 56.5 Glucose Level 249 mg/dL (70-99) Calcium Level 7.8 mg/dL (8.5-10.1) Total Bilirubin 1.5 mg/dL (0.2-1.0) Direct Bilirubin 1.0 mg/dL (0.0-0.2) Aspartate Amino Transf (AST/SGOT) 43 U/L (15-37) Alanine Aminotransferase (ALT/SGPT) 78 U/L (16-63) Alkaline Phosphatase 273 U/L (46-116) Creatine Kinase 182 U/L (39-308) Total Protein 6.7 g/dL (6.4-8.2) Albumin 1.5 g/dL (3.4-5.0) Test 05/11/20 07:20 O2 Saturation 97 % (92-99) Arterial Blood pH 7.45 (7.35-7.45) Arterial Blood pCO2 at Patient Temp 39 mmHg (35-46) Arterial Blood pO2 at Patient Temp 101 mmHg (65-108) Arterial Blood HCO3 27 mmol/L (21-28) Arterial Blood Base Excess 3 mmol/L (-3-3) FiO2 40 Laboratory Tests Test 05/10/20 12:07 05/10/20 17:06 05/10/20 23:59 05/11/20 05:30 Glucose (Fingerstick) 265 mg/dL (70-99) 205 mg/dL (70-99) 235 mg/dL (70-99) Sodium Level 145 mmol/L (136-145) Potassium Level 4.0 mmol/L (3.5-5.1) Chloride Level 108 mmol/L (98-107) Carbon Dioxide Level 31 mmol/L (21-32) Anion Gap 6 (6-14) Blood Urea Nitrogen 55 mg/dL (8-26) Creatinine 1.3 mg/dL (0.7-1.3) Estimated GFR (Cockcroft-Gault) 56.5 Glucose Level 249 mg/dL (70-99) Calcium Level 7.8 mg/dL (8.5-10.1) Total Bilirubin 1.5 mg/dL (0.2-1.0) Direct Bilirubin 1.0 mg/dL (0.0-0.2) Aspartate Amino Transf (AST/SGOT) 43 U/L (15-37) Alanine Aminotransferase (ALT/SGPT) 78 U/L (16-63) Alkaline Phosphatase 273 U/L (46-116) Creatine Kinase 182 U/L (39-308) Total Protein 6.7 g/dL (6.4-8.2) Albumin 1.5 g/dL (3.4-5.0) Test 05/11/20 05:32 05/11/20 07:20 Glucose (Fingerstick) 241 mg/dL (70-99) O2 Saturation 97 % (92-99) Arterial Blood pH 7.45 (7.35-7.45) Arterial Blood pCO2 at Patient Temp 39 mmHg (35-46) Arterial Blood pO2 at Patient Temp 101 mmHg (65-108) Arterial Blood HCO3 27 mmol/L (21-28) Arterial Blood Base Excess 3 mmol/L (-3-3) FiO2 40 Medications Active Scripts Medications Dose Route/Sig Max Daily Dose Days Date Category [Fluconazole] 100 MG Tablet 200 Mg PO DAILY 07/17/19 Rx Amox Tr-K Clv 875-125 Mg Tab (Amoxicillin/Potassium Clav) 1 Each Tablet 1 Tab PO BID 07/17/19 Rx Hydrocodone-Acetamin 5-325 mg (Hydrocodone/Acetaminophen) 1 Each Tablet 1 Each PO PRN Q6HRS PRN 03/14/19 Reported Diclofenac Sodium 75 Mg Tablet.dr 1 Tab PO BID 03/14/19 Reported Amlodipine Besylate 5 Mg Tablet 5 Mg PO DAILY 03/14/19 Reported Furosemide 40 Mg Tablet 1 Tab PO DAILY 03/14/19 Reported Lisinopril 30 Mg Tablet 1 Tab PO DAILY 03/14/19 Reported Actos (Pioglitazone Hcl) 30 Mg Tablet 1 Tab PO DAILY 01/31/18 Reported Comments cxr 3/4 increase effusions Impression . 1. Acute hypoxic respiratory failure secondary to acute encephalopathy and acute rhabdomyolysis along with metabolic acidosis. 2. Acute rhabdomyolysis 3. Bilateral interstitial infiltrates, likely suspect interstitial edema.now increase effusions 4. Leukopenia, which is now resolved and has leukocytosis, improving, neg COVID. 5. Acute kidney injury secondary to rhabdomyolysis. 6. Hyponatremia. resolved 7. E-Coli sepsis 8. Obesity, suspect obstructive sleep apnea Plan . Case discussed with RN, hold sedation, possible spontaneous trial Wean FiO2 As needed Lasix Follow nephrology input Antibiotics per ID DVT GI prophylaxis Outpatient polysomnogram Total cumulative critical care time from 9:55 AM to 10:20 AM Discussed with RN and RT. DARI WEATHERS MD May 11, 2020 09:23
--- NOTE | 2020-05-11 10:06 | PDOC ---
PROGRESS NOTES Date of Service DATE: 05/11/20 TIME: 10:04 Assessment Problems Medical Problems: (1) Acute kidney failure Status: Acute (2) Altered mental status Status: Acute (3) Hyperkalemia Status: Acute (4) Hyperuricemia Status: Acute (5) Lymphopenia Status: Acute (6) Respiratory failure with hypoxia Status: Acute Metabolic encephalopathy due to renal failure, respiratory failure, E-Coli sepsis, no evidence of primary neurological issue such as stroke, seizures, central nervous system infection. Rhabdomyolysis and leukopenia, improving Develop tachypnea on extubation attempt 3/3 Also has acute kidney injury, COVID neg Plan Treat medical diseases Holding off on additional neurological studies such as electroencephalogram Subjective None Objective Vital Signs Date Time Temp Pulse Resp B/P (MAP) Pulse Ox O2 Delivery O2 Flow Rate FiO2 05/11/20 09:00 98 Ventilator 05/11/20 09:00 49 17 127/55 (79) 05/11/20 08:00 99.3 99.3 Intake and Output 05/11/20 07:00 Intake Total 3555 ml Output Total 2925 ml Balance 630 ml IV Total 1848 ml Tube Feeding 1507 ml Other 200 ml Output Urine Total 2925 ml Gastric Drainage Total 0 ml # Bowel Movements 1 PHYSICAL EXAM Eyes open, looks at observer, possibly follows commands I am not sure PERRL. EOMI. CN: no focal findings. Muscle tone: normal. Muscle strength: Moves all extremities DTR: 0+ Plantar reflex: Flexor Gait: not examined in bed. Sensory exam: no abnormal findings. No cerebellar signs elicited. Review of Relevant I have reviewed the following items elina (where applicable) has been applied. Labs Laboratory Tests Test 05/09/20 11:15 05/09/20 16:51 05/10/20 00:40 05/10/20 05:30 Glucose (Fingerstick) 223 mg/dL (70-99) 234 mg/dL (70-99) 285 mg/dL (70-99) Sodium Level 141 mmol/L (136-145) Potassium Level 4.2 mmol/L (3.5-5.1) Chloride Level 102 mmol/L (98-107) Carbon Dioxide Level 33 mmol/L (21-32) Anion Gap 6 (6-14) Blood Urea Nitrogen 48 mg/dL (8-26) Creatinine 1.1 mg/dL (0.7-1.3) Estimated GFR (Cockcroft-Gault) 68.5 Glucose Level 267 mg/dL (70-99) Calcium Level 8.4 mg/dL (8.5-10.1) Test 05/10/20 05:31 05/10/20 08:00 05/10/20 08:34 05/10/20 12:07 Glucose (Fingerstick) 264 mg/dL (70-99) 265 mg/dL (70-99) O2 Saturation 95 % (92-99) Arterial Blood pH 7.47 (7.35-7.45) Arterial Blood pCO2 at Patient Temp 44 mmHg (35-46) Arterial Blood pO2 at Patient Temp 76 mmHg (65-108) Arterial Blood HCO3 32 mmol/L (21-28) Arterial Blood Base Excess 7 mmol/L (-3-3) FiO2 40% vent Platelet Count 194 x10^3/uL (140-400) Test 05/10/20 17:06 05/10/20 23:59 05/11/20 05:30 05/11/20 05:32 Glucose (Fingerstick) 205 mg/dL (70-99) 235 mg/dL (70-99) 241 mg/dL (70-99) Sodium Level 145 mmol/L (136-145) Potassium Level 4.0 mmol/L (3.5-5.1) Chloride Level 108 mmol/L (98-107) Carbon Dioxide Level 31 mmol/L (21-32) Anion Gap 6 (6-14) Blood Urea Nitrogen 55 mg/dL (8-26) Creatinine 1.3 mg/dL (0.7-1.3) Estimated GFR (Cockcroft-Gault) 56.5 Glucose Level 249 mg/dL (70-99) Calcium Level 7.8 mg/dL (8.5-10.1) Total Bilirubin 1.5 mg/dL (0.2-1.0) Direct Bilirubin 1.0 mg/dL (0.0-0.2) Aspartate Amino Transf (AST/SGOT) 43 U/L (15-37) Alanine Aminotransferase (ALT/SGPT) 78 U/L (16-63) Alkaline Phosphatase 273 U/L (46-116) Creatine Kinase 182 U/L (39-308) Total Protein 6.7 g/dL (6.4-8.2) Albumin 1.5 g/dL (3.4-5.0) Test 05/11/20 07:20 O2 Saturation 97 % (92-99) Arterial Blood pH 7.45 (7.35-7.45) Arterial Blood pCO2 at Patient Temp 39 mmHg (35-46) Arterial Blood pO2 at Patient Temp 101 mmHg (65-108) Arterial Blood HCO3 27 mmol/L (21-28) Arterial Blood Base Excess 3 mmol/L (-3-3) FiO2 40 Laboratory Tests Test 05/10/20 12:07 05/10/20 17:06 05/10/20 23:59 05/11/20 05:30 Glucose (Fingerstick) 265 mg/dL (70-99) 205 mg/dL (70-99) 235 mg/dL (70-99) Sodium Level 145 mmol/L (136-145) Potassium Level 4.0 mmol/L (3.5-5.1) Chloride Level 108 mmol/L (98-107) Carbon Dioxide Level 31 mmol/L (21-32) Anion Gap 6 (6-14) Blood Urea Nitrogen 55 mg/dL (8-26) Creatinine 1.3 mg/dL (0.7-1.3) Estimated GFR (Cockcroft-Gault) 56.5 Glucose Level 249 mg/dL (70-99) Calcium Level 7.8 mg/dL (8.5-10.1) Total Bilirubin 1.5 mg/dL (0.2-1.0) Direct Bilirubin 1.0 mg/dL (0.0-0.2) Aspartate Amino Transf (AST/SGOT) 43 U/L (15-37) Alanine Aminotransferase (ALT/SGPT) 78 U/L (16-63) Alkaline Phosphatase 273 U/L (46-116) Creatine Kinase 182 U/L (39-308) Total Protein 6.7 g/dL (6.4-8.2) Albumin 1.5 g/dL (3.4-5.0) Test 05/11/20 05:32 05/11/20 07:20 Glucose (Fingerstick) 241 mg/dL (70-99) O2 Saturation 97 % (92-99) Arterial Blood pH 7.45 (7.35-7.45) Arterial Blood pCO2 at Patient Temp 39 mmHg (35-46) Arterial Blood pO2 at Patient Temp 101 mmHg (65-108) Arterial Blood HCO3 27 mmol/L (21-28) Arterial Blood Base Excess 3 mmol/L (-3-3) FiO2 40 Microbiology 05/04/20 Blood Culture - Final, Complete 05/04/20 Antimicrobic Susceptibility - Final, Complete 05/04/20 Urine Culture - Final, Complete 05/04/20 Antimicrobic Susceptibility - Final, Complete Medications Current Medications Sodium Chloride 1,000 ml @ 1,000 mls/hr 1X ONCE IV Last administered on 05/04/20at 11:32; Start 05/04/20 at 11:45; Stop 05/04/20 at 12:44; Status DC Ceftriaxone Sodium (Rocephin) 1 gm 1X ONCE IVP Last administered on 05/04/20at 11:33; Start 05/04/20 at 11:45; Stop 05/04/20 at 11:46; Status DC Norepinephrine Bitartrate 8 mg/ Dextrose 258 ml @ 35.314 mls/ hr CONT PRN IV PER PROTOCOL Last administered on 05/04/20at 17:00; Start 05/04/20 at 17:00; Stop 05/04/20 at 18:09; Status DC Naloxone HCl (Narcan) 0.4 mg 1X ONCE IV Last administered on 05/04/20at 17:00; Start 05/04/20 at 17:00; Stop 05/04/20 at 17:01; Status DC Propofol 0 ml @ As Directed STK-MED ONCE IV ; Start 05/04/20 at 17:20; Stop 05/04/20 at 17:20; Status DC Succinylcholine Chloride (Anectine) 200 mg STK-MED ONCE .ROUTE ; Start 05/04/20 at 17:20; Stop 05/04/20 at 17:20; Status DC Rocuronium Alma (Zemuron) 50 mg STK-MED ONCE .ROUTE ; Start 05/04/20 at 17:20; Stop 05/04/20 at 17:21; Status DC Etomidate (Amidate) 20 mg STK-MED ONCE IV ; Start 05/04/20 at 17:20; Stop 05/04/20 at 17:21; Status DC Sodium Bicarbonate 150 meq/Dextrose 1,150 ml @ 150 mls/hr Q7H40M IV Last administered on 05/06/20at 07:44; Start 05/04/20 at 18:30; Stop 05/06/20 at 16:49; Status DC Fentanyl Citrate 30 ml @ 0 mls/hr CONT PRN IV SEE PROTOCOL; Start 05/04/20 at 18:15 Midazolam HCl 100 ml @ 0 mls/hr CONT PRN IV SEE PROTOCOL Last administered on 05/06/20at 19:09; Start 05/04/20 at 18:15 Norepinephrine Bitartrate 32 mg/ Dextrose 282 ml @ 9.65 mls/hr CONT PRN IV PER PROTOCOL Last administered on 05/06/20at 14:08; Start 05/04/20 at 18:15 Piperacillin Sod/ Tazobactam Sod 2.25 gm/Sodium Chloride 50 ml @ 100 mls/hr Q6HRS IV Last administered on 05/06/20at 06:36; Start 05/05/20 at 08:00; Stop 05/06/20 at 08:39; Status DC Daptomycin 700 mg/ Sodium Chloride 50 ml @ 100 mls/hr Q48H IV Last administered on 05/05/20at 08:42; Start 05/05/20 at 09:00; Stop 05/06/20 at 09:09; Status DC Insulin Glargine (Lantus Syringe) 20 unit DAILY10 SQ Last administered on 05/05/20at 10:03; Start 05/05/20 at 10:00; Stop 05/06/20 at 09:08; Status DC Insulin Human Lispro (HumaLOG) 0-7 UNITS Q6HRS SQ Last administered on 05/11/20at 05:32; Start 05/05/20 at 12:00 Dextrose (Dextrose 50%-Water Syringe) 12.5 gm PRN Q15MIN PRN IV SEE COMMENTS; Start 05/05/20 at 09:15 Heparin Sodium (Porcine) (Heparin Sodium) 5,000 unit Q8HRS SQ Last administered on 05/11/20at 05:31; Start 05/05/20 at 14:00 Famotidine (Pepcid Vial) 20 mg QHS IVP Last administered on 05/08/20at 21:36; Start 05/05/20 at 21:00; Stop 05/09/20 at 10:18; Status DC Phenylephrine HCl (PHENYLEPHRINE in 0.9% NACL PF) 1 mg STK-MED ONCE IV ; Start 05/04/20 at 18:00; Stop 05/05/20 at 12:11; Status DC Etomidate (Amidate) 20 mg STK-MED ONCE IV ; Start 05/04/20 at 18:00; Stop 05/05/20 at 12:28; Status DC Rocuronium Alma (Zemuron) 50 mg STK-MED ONCE .ROUTE ; Start 05/04/20 at 18:00; Stop 05/05/20 at 12:28; Status DC Succinylcholine Chloride (Anectine) 200 mg STK-MED ONCE .ROUTE ; Start 05/04/20 at 18:00; Stop 05/05/20 at 12:28; Status DC Propofol (Diprivan) 1,000 mg STK-MED ONCE IV ; Start 05/04/20 at 18:00; Stop 05/05/20 at 12:28; Status DC Piperacillin Sod/ Tazobactam Sod 3.375 gm/Sodium Chloride 50 ml @ 100 mls/hr Q6HRS IV Last administered on 05/11/20at 05:31; Start 05/06/20 at 12:00 Insulin Glargine (Lantus Syringe) 40 unit DAILY10 SQ Last administered on 05/06/20at 09:37; Start 05/06/20 at 10:00; Stop 05/07/20 at 07:18; Status DC Fentanyl Citrate (Fentanyl 2ml Vial) 100 mcg STK-MED ONCE .ROUTE ; Start 05/06/20 at 11:35; Stop 05/06/20 at 11:35; Status DC Fentanyl Citrate (Fentanyl 2ml Vial) 50 mcg PRN Q2HR PRN IVP PAIN Last administered on 05/11/20at 08:10; Start 05/06/20 at 10:45 Insulin Glargine (Lantus Syringe) 60 unit DAILY SQ Last administered on 05/08/20at 09:01; Start 05/07/20 at 09:00; Stop 05/08/20 at 09:02; Status DC Fentanyl Citrate (Fentanyl 2ml Vial) 100 mcg STK-MED ONCE .ROUTE ; Start 05/06/20 at 11:40; Stop 05/07/20 at 08:51; Status DC Propofol 100 ml @ 5.247 mls/ hr CONT PRN IV PER PROTOCOL Last administered on 05/10/20at 06:17; Start 05/07/20 at 09:30 Insulin Glargine (Lantus Syringe) 90 unit DAILY SQ Last administered on 05/09/20at 08:22; Start 05/09/20 at 09:00; Stop 05/09/20 at 09:46; Status DC Insulin Glargine (Lantus Syringe) 30 unit 1X ONCE SQ Last administered on 05/08/20at 09:28; Start 05/08/20 at 09:30; Stop 05/08/20 at 09:31; Status DC Furosemide (Lasix) 40 mg 1X ONCE IVP Last administered on 05/08/20at 09:32; Start 05/08/20 at 10:00; Stop 05/08/20 at 10:01; Status DC Insulin Glargine (Lantus Syringe) 100 unit DAILY SQ ; Start 05/10/20 at 09:00; Stop 05/10/20 at 08:11; Status DC Pantoprazole Sodium (PROTONIX VIAL for IV PUSH) 40 mg DAILYAC IVP Last administered on 05/11/20at 08:10; Start 05/10/20 at 07:30 Furosemide (Lasix) 40 mg 1X ONCE IVP Last administered on 05/09/20at 11:09; Start 05/09/20 at 11:00; Stop 05/09/20 at 11:02; Status DC Hydralazine HCl (Apresoline Inj) 10 mg PRN Q4HRS PRN IVP ELEVATED BP, SEE COMMENTS Last administered on 05/09/20at 11:10; Start 05/09/20 at 11:15 Insulin Glargine (Lantus Syringe) 110 unit DAILY SQ Last administered on 05/11/20at 08:11; Start 05/10/20 at 09:00 Dexmedetomidine HCl 400 mcg/ Sodium Chloride 100 ml @ 0 mls/hr CONT PRN IV PER PROTOCOL Last administered on 05/11/20at 08:11; Start 05/10/20 at 10:30 Sodium Chloride 500 ml @ 500 mls/hr 1X PRN PRN IV SEE COMMENTS; Start 05/10/20 at 10:30 Atropine Sulfate (ATROPINE 0.5mg SYRINGE) 0.5 mg PRN Q5MIN PRN IV SEE COMMENTS; Start 05/10/20 at 10:30 Furosemide (Lasix) 40 mg 1X ONCE IVP Last administered on 05/10/20at 11:27; Start 05/10/20 at 11:00; Stop 05/10/20 at 11:01; Status DC Daptomycin 690 mg/ Sodium Chloride 50 ml @ 100 mls/hr Q24H IV Last administered on 05/10/20at 20:26; Start 05/10/20 at 20:00 Acetaminophen (Tylenol) 650 mg PRN Q6HRS PRN PEG MILD PAIN / TEMP > 100.3'F Last administered on 05/10/20at 20:20; Start 05/10/20 at 20:00 Active Scripts Active [Fluconazole] 100 MG Tablet 200 Mg PO DAILY 10 Days Amox Tr-K Clv 875-125 Mg Tab (Amoxicillin/Potassium Clav) 1 Each Tablet 1 Tab PO BID 10 Days Reported Hydrocodone-Acetamin 5-325 mg (Hydrocodone/Acetaminophen) 1 Each Tablet 1 Each PO PRN Q6HRS PRN Diclofenac Sodium 75 Mg Tablet.dr 1 Tab PO BID Amlodipine Besylate 5 Mg Tablet 5 Mg PO DAILY Furosemide 40 Mg Tablet 1 Tab PO DAILY Lisinopril 30 Mg Tablet 1 Tab PO DAILY Actos (Pioglitazone Hcl) 30 Mg Tablet 1 Tab PO DAILY Vitals/I & O Vital Sign - Last 24 Hours 05/10/20 05/10/20 05/10/20 05/10/20 11:00 11:45 12:00 12:00 Temp 99.6 99.6 Pulse 76 76 Resp 16 16 B/P (MAP) 132/60 (84) 132/60 (84) Pulse Ox 100 100 100 O2 Delivery Ventilator Ventilator Ventilator Mechanical Ventilator 05/10/20 05/10/20 05/10/20 05/10/20 12:00 13:04 14:00 15:00 Pulse 63 67 61 Resp 16 18 18 B/P (MAP) 102/56 (71) 94/56 (69) 104/56 (72) Pulse Ox 100 100 100 O2 Delivery Ventilator Ventilator Ventilator 05/10/20 05/10/20 05/10/20 05/10/20 15:43 16:00 16:00 17:02 Pulse 61 60 Resp 30 B/P (MAP) 117/56 (76) 117/71 (86) Pulse Ox 100 100 O2 Delivery Ventilator Mechanical Ventilator Ventilator 3/09/2305/10/20 05/10/20 05/10/20 18:00 19:00 19:45 19:45 Pulse 60 62 Resp 22 16 B/P (MAP) 110/60 (77) 105/54 (71) Pulse Ox 98 100 99 O2 Delivery Ventilator Ventilator Mechanical Ventilator Ventilator 05/10/20 05/10/20 05/10/20 05/10/20 19:45 20:00 21:00 22:00 Temp 102.1 102.1 Pulse 76 76 66 62 Resp 20 20 22 B/P (MAP) 116/60 (78) 119/59 (79) 104/52 (69) 100/54 (69) Pulse Ox 98 99 99 O2 Delivery Ventilator Ventilator Ventilator 05/10/20 05/11/20 05/11/20 05/11/20 23:00 00:00 00:00 00:00 Temp 101.0 101.0 Pulse 62 52 52 Resp 18 23 B/P (MAP) 100/52 (68) 101/48 (65) 101/48 (65) Pulse Ox 100 100 O2 Delivery Ventilator Mechanical Ventilator Ventilator 05/11/20 05/11/20 05/11/20 05/11/20 00:23 01:00 02:00 03:00 Pulse 55 57 48 Resp 22 22 20 B/P (MAP) 111/56 (74) 106/53 (70) 104/52 (69) Pulse Ox 100 100 100 100 O2 Delivery Ventilator Ventilator Ventilator Ventilator 05/11/20 05/11/20 05/11/20 05/11/20 03:45 03:45 04:00 04:58 Temp 99.5 99.5 Pulse 55 51 Resp 25 B/P (MAP) 112/53 (72) 121/58 (79) Pulse Ox 100 100 O2 Delivery Mechanical Ventilator Ventilator Ventilator 05/11/20 05/11/20 05/11/20 05/11/20 05:00 06:00 07:00 07:21 Pulse 54 51 60 Resp 18 22 24 B/P (MAP) 117/54 (75) 130/62 (84) 139/64 (89) Pulse Ox 100 100 100 98 O2 Delivery Ventilator Ventilator Ventilator Ventilator 05/11/20 05/11/20 05/11/20 05/11/20 08:00 08:00 08:00 08:10 Temp 99.3 99.3 Pulse 68 Resp 18 B/P (MAP) 140/62 (88) Pulse Ox 100 98 O2 Delivery Mechanical Ventilator Ventilator Ventilator 05/11/20 05/11/20 09:00 09:00 Pulse 49 Resp 17 B/P (MAP) 127/55 (79) Pulse Ox 97 98 O2 Delivery Ventilator Ventilator Intake and Output 05/10/20 05/10/20 05/11/20 15:00 23:00 07:00 Intake Total 200 ml 1437 ml 1918 ml Output Total 1275 ml 1010 ml 640 ml Balance -1075 ml 427 ml 1278 ml Justicifation of Admission Dx: Justifications for Admission: Justification of Admission Dx: N/A VERO GOMEZ MD May 11, 2020 10:06
--- NOTE | 2020-05-11 10:27 | PDOC ---
Renal-Progress Notes Subjective Notes Notes NONE History of Present Illness Hx of present illness INTUBATED Vitals Vitals Vital Signs Date Time Temp Pulse Resp B/P (MAP) Pulse Ox O2 Delivery O2 Flow Rate FiO2 05/11/20 10:00 52 17 142/58 (86) 100 Ventilator 05/11/20 08:00 99.3 99.3 Weight Weight [ ] I.O. Intake and Output Intake and Output 05/11/20 07:00 Intake Total 3555 ml Output Total 2925 ml Balance 630 ml IV Total 1848 ml Tube Feeding 1507 ml Other 200 ml Output Urine Total 2925 ml Gastric Drainage Total 0 ml # Bowel Movements 1 Labs Labs Laboratory Tests Test 05/10/20 12:07 05/10/20 17:06 05/10/20 23:59 05/11/20 05:30 Glucose (Fingerstick) 265 mg/dL (70-99) 205 mg/dL (70-99) 235 mg/dL (70-99) Sodium Level 145 mmol/L (136-145) Potassium Level 4.0 mmol/L (3.5-5.1) Chloride Level 108 mmol/L (98-107) Carbon Dioxide Level 31 mmol/L (21-32) Anion Gap 6 (6-14) Blood Urea Nitrogen 55 mg/dL (8-26) Creatinine 1.3 mg/dL (0.7-1.3) Estimated GFR (Cockcroft-Gault) 56.5 Glucose Level 249 mg/dL (70-99) Calcium Level 7.8 mg/dL (8.5-10.1) Total Bilirubin 1.5 mg/dL (0.2-1.0) Direct Bilirubin 1.0 mg/dL (0.0-0.2) Aspartate Amino Transf (AST/SGOT) 43 U/L (15-37) Alanine Aminotransferase (ALT/SGPT) 78 U/L (16-63) Alkaline Phosphatase 273 U/L (46-116) Creatine Kinase 182 U/L (39-308) Total Protein 6.7 g/dL (6.4-8.2) Albumin 1.5 g/dL (3.4-5.0) Test 05/11/20 05:32 05/11/20 07:20 Glucose (Fingerstick) 241 mg/dL (70-99) O2 Saturation 97 % (92-99) Arterial Blood pH 7.45 (7.35-7.45) Arterial Blood pCO2 at Patient Temp 39 mmHg (35-46) Arterial Blood pO2 at Patient Temp 101 mmHg (65-108) Arterial Blood HCO3 27 mmol/L (21-28) Arterial Blood Base Excess 3 mmol/L (-3-3) FiO2 40 Micro Micro Microbiology 05/04/20 Blood Culture - Final, Complete 05/04/20 Antimicrobic Susceptibility - Final, Complete 05/04/20 Urine Culture - Final, Complete 05/04/20 Antimicrobic Susceptibility - Final, Complete Review of Systems Constitutional: yes: unresponsive Physical Exam General Appearance: no apparent distress Skin: warm Respiratory: decreased breath sounds Heart: S1S2 Abdomen: soft Genitourinary: bladder flat, schaffer catheter Extremities: edema Assessment Assessment IMP AUGUSTINE-RESOLVING HYPONATREMIA-RESOLVED EDEMA SEPSIS ACUTE HYPOXIC RESP FAILURE RHABDOMYOLYSIS-IMPROVING PLAN F/U CPK IV LASIX TODAY ANTIBIOTICS LABS IN AM WILL FOLLOW DAVID STOVALL MD May 11, 2020 10:27
--- NOTE | 2020-05-11 10:43 | PN ---
DATE: 05/11/2020 DAILY PROGRESS NOTE LOCATION: He is in room ICU 102. SUBJECTIVE: The patient remains sedated on the ventilator. The case discussed with nursing in detail. The only change is he started spiking fevers up to 102 over the last 24 hours or so. Only rational possibility that nursing can think of is his art line. OBJECTIVE: VITAL SIGNS: Stable. T-max 102. Sugars remain high. CHEST: Clear. HEART: Irregular. ABDOMEN: Benign. LABORATORY AND DIAGNOSTIC DATA: Creatinine this morning is down to 1.3. Sugars have been running in the 200s. IMPRESSION: 1. Acute respiratory failure due to encephalopathy with great blood gases this morning and hopefully extubation. 2. Escherichia coli sepsis. 3. Leukopenia with no leukocytosis. 4. New fevers of uncertain etiology. 5. Acute kidney injury, improved to resolved. 6. Diabetes. PLAN: Continue present care. ID on case with the fevers. Hopefully, extubation today. Otherwise, supportive care. BUSTER LEMONS MD DR: JAZIEL/helene JOB#: [id number] / [id number]
[2020-05-11 13:52] LABS: BASE EXCESS ABG 6 mmol/L (-3-3); CORRECTED PCO2 ABG 44 mmHg; CORRECTED PH ABG 7.45; CORRECTED PO2 ABG 103 mmHg; HCO3 ABG 30 mmol/L (21-28); PCO2 ABG 41 mmHg (35-46); PO2 ABG 91 mmHg (65-108); SAT O2 ABG 97 % (92-99)
[2020-05-11 13:53] LABS: FIO2 ABG 40 VENT
[2020-05-11] MEDS: MEROPENEM 1 GM in IV NORMAL SALINE 100ML 100 ML IV SCH ×2 (15:30→22:13)
--- NOTE | 2020-05-11 15:44 | NUR ---
SS following up with discharge planning. SS reviewed pt chart and discussed with pt RN. Pt is now extubated and on three liters nasal canula. COVID19 negative. Pt on IV Meropenem. SS will continue to follow for discharge planning.
[2020-05-11] MEDS: IV DEXTROSE 5% 1,000 ML IV SCH (18:36)
[2020-05-12] VITALS (13 sets, daily range): BP systolic 106–161; BP diastolic 44–76
[2020-05-12] MEDS: DEXTROSE 50% 25 GM / 50ML DISP.SYRIN. IV PRN (00:24)
[2020-05-12] MEDS: INSULIN LISPRO 300 UNITS/3 ML VIAL. SQ SCH ×4 (06:00→19:18)
[2020-05-12] MEDS: HEPARIN for SUB-Q USE 5,000 UNIT/ML VIAL. SQ SCH ×3 (06:11→20:59)
[2020-05-12] MEDS: MEROPENEM 1 GM in IV NORMAL SALINE 100ML 100 ML IV SCH ×3 (06:12→20:58)
--- NOTE | 2020-05-12 06:15 | NUR ---
New bed patient is on is unable to weigh patient Addendum: 05/12/20 at 0616 by JESENIA HSU RN Amended: Links added.
--- NOTE | 2020-05-12 07:13 | PDOC ---
Infectious Disease Note Subjective Subjective extubated , feeling better ROS ROS no n/v/d/ Vital Sign Vital Signs Vital Signs Date Time Temp Pulse Resp B/P (MAP) Pulse Ox O2 Delivery O2 Flow Rate FiO2 05/12/20 06:00 78 24 135/71 (92) 97 Room Air 05/12/20 04:00 98.5 98.5 05/11/20 22:00 2.0 Physical Exam PHYSICAL EXAM GENERAL: awake, not in any distress. VITAL SIGNS: stable HEENT: Both pupils are round and reacting. No conjunctival lesion. Orally intubated, unable to see the mouth. NECK: Supple, no JVP, no lymphadenopathy. LUNGS: Decreased breath sounds. HEART: S1, S2 regular. No gallop or murmur. ABDOMEN: Soft, nontender, no organomegaly. EXTREMITIES: No edema or cyanosis. SKIN: Unremarkable. NEUROLOGIC: A and O x 3 , no focal deficit Labs Lab Laboratory Tests Test 05/11/20 07:20 05/11/20 12:33 05/11/20 13:47 05/11/20 18:12 O2 Saturation 97 % (92-99) 97 % (92-99) Arterial Blood pH 7.45 (7.35-7.45) 7.48 (7.35-7.45) Arterial Blood pCO2 at Patient Temp 39 mmHg (35-46) 41 mmHg (35-46) Arterial Blood pO2 at Patient Temp 101 mmHg (65-108) 91 mmHg (65-108) Arterial Blood HCO3 27 mmol/L (21-28) 30 mmol/L (21-28) Arterial Blood Base Excess 3 mmol/L (-3-3) 6 mmol/L (-3-3) FiO2 40 40 vent Glucose (Fingerstick) 233 mg/dL (70-99) 92 mg/dL (70-99) Arterial Blood pH (Temp corrected) 7.45 Arterial Blood pCO2 (Temp correct) 44 mmHg Arterial Blood pO2 (Temp corrected) 103 mmHg Test 05/12/20 00:19 05/12/20 03:13 05/12/20 06:07 Glucose (Fingerstick) 65 mg/dL (70-99) 109 mg/dL (70-99) 123 mg/dL (70-99) Micro BLOOD CULTURE LC Final Final GRAM NEGATIVE RODS FINAL ID= [ESCHERICHIA COLI] ESCHERICHIA COLI ANTIMICROBIAL SUSCEPTIBILITY Final Comment NEG RAD 56 ESCHERICHIA COLI ANTIBIOTIC RESULT INTERPRETATION AMPICILLIN/SULBACTAM <=4/2 S AMIKACIN <=16 S AMPICILLIN <=8 S AMOXICILLIN/K CLAVULANATE <=8/4 S AZTREONAM <=4 S CEFTRIAXONE <=1 S CEFTAZIDIME <=1 S CEFOTAXIME <=2 S CEFOXITIN <=8 S CEFAZOLIN <=2 S CIPROFLOXACIN <=0.25 S CEFEPIME <=2 S CEFUROXIME 8 S CEFTAZIDIME/AVIBACTAM <=4 S ERTAPENEM <=0.5 S GENTAMICIN <=2 S LEVOFLOXACIN <=0.5 S MEROPENEM <=1 S PIPERACILLIN/TAZOBACTAM <=8 S TRIMETHOPRIM/SULFAMETHOXAZOLE <=0.5/9.5 S TETRACYCLINE <=4 S TOBRAMYCIN <=2 S Unless otherwise specified, Testing Performed by: [address] [address] For Inquires, the Physician may contact the Microbiology department at [phone] Objective Assessment IMPRESSION: 1. Encephalopathy. 2. Leukopenia, from sepsis , now leukocytosis 3. Respiratory failure. 4. Hyponatremia. 5. Acute kidney injury. 6. Circulatory failure. 7. Obesity. 8. COVID neg 9 G neg selvin sepsis/ E coli 10 UTI with sepsis Plan Plan of Care 1. Continue supportive care. 2. Hydration. 3. cont CURT Chapman MD May 12, 2020 07:12
[2020-05-12] MEDS: INSULIN GLARGINE SYRINGE. SQ SCH (08:04)
[2020-05-12] MEDS: PANTOPRAZOLE IV PUSH 40 MG VIAL. IVP SCH (08:11)
--- NOTE | 2020-05-12 08:20 | PDOC ---
PULMONARY PROGRESS NOTES DATE: 05/12/20 TIME: 08:19 Subjective Patient did well yesterday on trial, extubated Is currently off of oxygen Awake alert no complaints of being short of breath Vitals Vital Signs Date Time Temp Pulse Resp B/P (MAP) Pulse Ox O2 Delivery O2 Flow Rate FiO2 05/12/20 07:00 97.8 80 16 135/71 (92) 98 Room Air 97.8 05/11/20 22:00 2.0 Comments Awake alert no respiratory distress Lungs: Other (b lat diminished bs ) Cardiovascular: S1, S2 Abdomen: Soft, Non-tender, Other (obese) Extremities: Other (2+edema) Skin: Warm Labs Laboratory Tests Test 05/10/20 08:34 05/10/20 12:07 05/10/20 17:06 05/10/20 23:59 Platelet Count 194 x10^3/uL (140-400) Glucose (Fingerstick) 265 mg/dL (70-99) 205 mg/dL (70-99) 235 mg/dL (70-99) Test 05/11/20 05:30 05/11/20 05:32 05/11/20 07:20 05/11/20 12:33 Sodium Level 145 mmol/L (136-145) Potassium Level 4.0 mmol/L (3.5-5.1) Chloride Level 108 mmol/L (98-107) Carbon Dioxide Level 31 mmol/L (21-32) Anion Gap 6 (6-14) Blood Urea Nitrogen 55 mg/dL (8-26) Creatinine 1.3 mg/dL (0.7-1.3) Estimated GFR (Cockcroft-Gault) 56.5 Glucose Level 249 mg/dL (70-99) Calcium Level 7.8 mg/dL (8.5-10.1) Total Bilirubin 1.5 mg/dL (0.2-1.0) Direct Bilirubin 1.0 mg/dL (0.0-0.2) Aspartate Amino Transf (AST/SGOT) 43 U/L (15-37) Alanine Aminotransferase (ALT/SGPT) 78 U/L (16-63) Alkaline Phosphatase 273 U/L (46-116) Creatine Kinase 182 U/L (39-308) Total Protein 6.7 g/dL (6.4-8.2) Albumin 1.5 g/dL (3.4-5.0) Glucose (Fingerstick) 241 mg/dL (70-99) 233 mg/dL (70-99) O2 Saturation 97 % (92-99) Arterial Blood pH 7.45 (7.35-7.45) Arterial Blood pCO2 at Patient Temp 39 mmHg (35-46) Arterial Blood pO2 at Patient Temp 101 mmHg (65-108) Arterial Blood HCO3 27 mmol/L (21-28) Arterial Blood Base Excess 3 mmol/L (-3-3) FiO2 40 Test 05/11/20 13:47 05/11/20 18:12 05/12/20 00:19 05/12/20 03:13 O2 Saturation 97 % (92-99) Arterial Blood pH 7.48 (7.35-7.45) Arterial Blood pH (Temp corrected) 7.45 Arterial Blood pCO2 at Patient Temp 41 mmHg (35-46) Arterial Blood pCO2 (Temp correct) 44 mmHg Arterial Blood pO2 at Patient Temp 91 mmHg (65-108) Arterial Blood pO2 (Temp corrected) 103 mmHg Arterial Blood HCO3 30 mmol/L (21-28) Arterial Blood Base Excess 6 mmol/L (-3-3) FiO2 40 vent Glucose (Fingerstick) 92 mg/dL (70-99) 65 mg/dL (70-99) 109 mg/dL (70-99) Test 05/12/20 06:07 05/12/20 08:02 Glucose (Fingerstick) 123 mg/dL (70-99) 105 mg/dL (70-99) Laboratory Tests Test 05/11/20 12:33 05/11/20 13:47 05/11/20 18:12 05/12/20 00:19 Glucose (Fingerstick) 233 mg/dL (70-99) 92 mg/dL (70-99) 65 mg/dL (70-99) O2 Saturation 97 % (92-99) Arterial Blood pH 7.48 (7.35-7.45) Arterial Blood pH (Temp corrected) 7.45 Arterial Blood pCO2 at Patient Temp 41 mmHg (35-46) Arterial Blood pCO2 (Temp correct) 44 mmHg Arterial Blood pO2 at Patient Temp 91 mmHg (65-108) Arterial Blood pO2 (Temp corrected) 103 mmHg Arterial Blood HCO3 30 mmol/L (21-28) Arterial Blood Base Excess 6 mmol/L (-3-3) FiO2 40 vent Test 05/12/20 03:13 05/12/20 06:07 05/12/20 08:02 Glucose (Fingerstick) 109 mg/dL (70-99) 123 mg/dL (70-99) 105 mg/dL (70-99) Medications Active Scripts Medications Dose Route/Sig Max Daily Dose Days Date Category [Fluconazole] 100 MG Tablet 200 Mg PO DAILY 10 07/17/19 Rx Amox Tr-K Clv 875-125 Mg Tab (Amoxicillin/Potassium Clav) 1 Each Tablet 1 Tab PO BID 10 07/17/19 Rx Hydrocodone-Acetamin 5-325 mg (Hydrocodone/Acetaminophen) 1 Each Tablet 1 Each PO PRN Q6HRS PRN 03/14/19 Reported Diclofenac Sodium 75 Mg Tablet.dr 1 Tab PO BID 03/14/19 Reported Amlodipine Besylate 5 Mg Tablet 5 Mg PO DAILY 03/14/19 Reported Furosemide 40 Mg Tablet 1 Tab PO DAILY 03/14/19 Reported Lisinopril 30 Mg Tablet 1 Tab PO DAILY 03/14/19 Reported Actos (Pioglitazone Hcl) 30 Mg Tablet 1 Tab PO DAILY 01/31/18 Reported Comments cxr 3/4 increase effusions Impression . 1. Acute hypoxic respiratory failure secondary to acute encephalopathy and acute rhabdomyolysis along with metabolic acidosis. 2. Acute rhabdomyolysis 3. Bilateral interstitial infiltrates, likely suspect interstitial edema.now increase effusions 4. Leukopenia, which is now resolved and has leukocytosis, improving, neg COVID. 5. Acute kidney injury secondary to rhabdomyolysis. 6. Hyponatremia. resolved 7. E-Coli sepsis 8. Obesity, suspect obstructive sleep apnea Plan . Off of oxygen supplementation doing well Transfer out of the ICU Antibiotics per ID Patient extubated on May 11, 2020 Wean FiO2 As needed Lasix Follow nephrology input DVT GI prophylaxis Outpatient polysomnogram Total cumulative critical care time from 8:50 AM to 9:15 AM Discussed with RN and RT. DARI WEATHERS MD May 12, 2020 08:19
[2020-05-12 08:47] LABS: CALCIUM 7.9 mg/dL (8.5-10.1); CREATININE 0.9 mg/dL (0.7-1.3); GFR 86.4; MAGNESIUM 2.6 mg/dL (1.8-2.4); POTASSIUM 4.6 mmol/L (3.5-5.1)
--- NOTE | 2020-05-12 09:51 | RAD ---
EXAM: Right upper extremity venous Doppler sonogram. HISTORY: Swelling and pain. TECHNIQUE: Ramírez scale and color Doppler sonographic evaluation of the right upper extremity veins wit h spectral waveform analysis was performed. FINDINGS: The exam is limited due to patient body habitus. The basilic vein in the forearm could not be assessed due to patient motion. There is normal color flow, normal compressibility and there are n ormal spectral waveforms in the remainder of the upper extremity veins. IMPRESSION: No Doppler evidence of upper extremity venous thrombosis, with nonassessment of the basil ic vein within the forearm due to patient motion. The exam is extremely limited to patient body habit us. Electronically signed by: Argelia Bradford MD (05/12/2020 9:49 AM) [id number]
--- NOTE | 2020-05-12 10:20 | PDOC ---
Renal-Progress Notes Subjective Notes Notes NO NEW COMPLAINTS History of Present Illness Hx of present illness NO ACUTE CHANGES Vitals Vitals Vital Signs Date Time Temp Pulse Resp B/P (MAP) Pulse Ox O2 Delivery O2 Flow Rate FiO2 05/12/20 08:00 Room Air 05/12/20 08:00 80 17 161/72 (101) 99 05/12/20 07:00 97.8 97.8 05/11/20 22:00 2.0 Weight Weight [ ] I.O. Intake and Output Intake and Output 05/12/20 07:00 Intake Total 2662 ml Output Total 3435 ml Balance -773 ml IV Total 1162 ml Tube Feeding 1500 ml Output Urine Total 3435 ml # Bowel Movements 3 Labs Labs Laboratory Tests Test 05/11/20 12:33 05/11/20 13:47 05/11/20 18:12 05/12/20 00:19 Glucose (Fingerstick) 233 mg/dL (70-99) 92 mg/dL (70-99) 65 mg/dL (70-99) O2 Saturation 97 % (92-99) Arterial Blood pH 7.48 (7.35-7.45) Arterial Blood pH (Temp corrected) 7.45 Arterial Blood pCO2 at Patient Temp 41 mmHg (35-46) Arterial Blood pCO2 (Temp correct) 44 mmHg Arterial Blood pO2 at Patient Temp 91 mmHg (65-108) Arterial Blood pO2 (Temp corrected) 103 mmHg Arterial Blood HCO3 30 mmol/L (21-28) Arterial Blood Base Excess 6 mmol/L (-3-3) FiO2 40 vent Test 05/12/20 03:13 05/12/20 06:07 05/12/20 07:30 05/12/20 08:02 Glucose (Fingerstick) 109 mg/dL (70-99) 123 mg/dL (70-99) 105 mg/dL (70-99) Sodium Level 149 mmol/L (136-145) Potassium Level 4.6 mmol/L (3.5-5.1) Chloride Level 111 mmol/L (98-107) Carbon Dioxide Level 27 mmol/L (21-32) Anion Gap 11 (6-14) Blood Urea Nitrogen 43 mg/dL (8-26) Creatinine 0.9 mg/dL (0.7-1.3) Estimated GFR (Cockcroft-Gault) 86.4 Glucose Level 99 mg/dL (70-99) Calcium Level 7.9 mg/dL (8.5-10.1) Magnesium Level 2.6 mg/dL (1.8-2.4) Creatine Kinase 702 U/L (39-308) Micro Micro Microbiology 05/10/20 Blood Culture - Final, Complete 05/04/20 Urine Culture - Final, Complete 05/04/20 Antimicrobic Susceptibility - Final, Complete Review of Systems Constitutional: yes: other (CONFUSED) Physical Exam General Appearance: no apparent distress Skin: warm Respiratory: decreased breath sounds Heart: S1S2 Abdomen: soft Genitourinary: bladder flat, schaffer catheter Extremities: edema Assessment Assessment IMP AUGUSTINE-RESOLVING HYPERNATREMIA EDEMA SEPSIS ACUTE HYPOXIC RESP FAILURE RHABDOMYOLYSIS-IMPROVING PLAN F/U CPK IV LASIX CONT D5W ANTIBIOTICS LABS IN AM WILL FOLLOW DAVID STOVALL MD May 12, 2020 10:20
[2020-05-12] MEDS ORDERED: FUROSEMIDE 40 MG/4 ML VIAL. IVP ONE (10:30)
--- NOTE | 2020-05-12 12:04 | PN ---
DATE: 05/12/2020 LOCATION: He is in room ICU 102. SUBJECTIVE: This 60-year-old white male, remains in the ICU. He was extubated yesterday afternoon, is currently awake, alert, albeit confused, though oxygen needs at this point in time with good sats. He does complain of some right arm pain. OBJECTIVE: VITAL SIGNS: Stable. He has been essentially afebrile over the last 24 hours. CHEST: Clear. HEART: Regular. ABDOMEN: Benign. LABORATORY DATA: Blood cultures as of the are still growing out gram-negative rods. Creatinine this morning is down to normal. Sugars have been very good once the tube feedings were stopped. We will expect him to start climbing possible as the day goes on. He will also have a swallow test today to see if he is safe to take oral feedings. His right arm is quite swollen, likely IV related, but will do an ultrasound to rule out DVT. IMPRESSION: 1. Acute respiratory failure due to encephalopathy with extubation on room air. 2. Escherichia coli sepsis with ongoing positive blood cultures that is hard to explain, but will defer to ID. 3. Fever curve better. 4. Acute kidney injury, resolved. 5. Diabetes, presently well controlled. PLAN: Ultrasound of the right arm, rule out DVT. We will watch sugars, swallow evaluation today. Up in chair. May transfer out to a telemetry floor. I will discussed with nursing this morning. BUSTER LEMONS MD DR: JAZIEL/helene JOB#: [id number] / [id number]
--- NOTE | 2020-05-12 14:35 | NUR ---
SS following up with discharge planning. SS reviewed pt chart and discussed with pt RN. Pt is currently on room air. Pt on IV Meropenem. NPO. COVID19 negative. PT/OT ordered. Pt transferred to room 676. Rocio CHAMBERLAIN, to follow.
[2020-05-12] MEDS: IV DEXTROSE 5% 1,000 ML IV SCH (19:34)
[2020-05-13] MEDS: INSULIN LISPRO 300 UNITS/3 ML VIAL. SQ SCH ×4 (01:33→18:00)
[2020-05-13 02:52] VITALS: BP 190/68
[2020-05-13] MEDS: MEROPENEM 1 GM in IV NORMAL SALINE 100ML 100 ML IV SCH ×3 (05:05→22:10)
[2020-05-13] MEDS: HEPARIN for SUB-Q USE 5,000 UNIT/ML VIAL. SQ SCH ×3 (05:07→22:17)
[2020-05-13] MEDS: INSULIN GLARGINE SYRINGE. SQ SCH (07:30)
[2020-05-13 07:34] VITALS: BP 170/67
[2020-05-13] MEDS: PANTOPRAZOLE IV PUSH 40 MG VIAL. IVP SCH (08:10)
--- NOTE | 2020-05-13 09:07 | PDOC ---
PULMONARY PROGRESS NOTES DATE: 05/13/20 TIME: 09:07 Subjective Patient wants to drink, Discussed with speech, he is currently n.p.o. Vitals Vital Signs Date Time Temp Pulse Resp B/P (MAP) Pulse Ox O2 Delivery O2 Flow Rate FiO2 05/13/20 08:00 Room Air 05/13/20 07:34 98.4 83 18 170/67 (101) 97 2.0 98.4 Comments Awake alert no respiratory distress Lungs: Other (b lat diminished bs ) Cardiovascular: S1, S2 Abdomen: Soft, Non-tender, Other (obese) Extremities: Other (2+edema) Skin: Warm Labs Laboratory Tests Test 05/11/20 12:33 05/11/20 13:47 05/11/20 18:12 05/12/20 00:19 Glucose (Fingerstick) 233 mg/dL (70-99) 92 mg/dL (70-99) 65 mg/dL (70-99) O2 Saturation 97 % (92-99) Arterial Blood pH 7.48 (7.35-7.45) Arterial Blood pH (Temp corrected) 7.45 Arterial Blood pCO2 at Patient Temp 41 mmHg (35-46) Arterial Blood pCO2 (Temp correct) 44 mmHg Arterial Blood pO2 at Patient Temp 91 mmHg (65-108) Arterial Blood pO2 (Temp corrected) 103 mmHg Arterial Blood HCO3 30 mmol/L (21-28) Arterial Blood Base Excess 6 mmol/L (-3-3) FiO2 40 vent Test 05/12/20 03:13 05/12/20 06:07 05/12/20 07:30 05/12/20 08:02 Glucose (Fingerstick) 109 mg/dL (70-99) 123 mg/dL (70-99) 105 mg/dL (70-99) Sodium Level 149 mmol/L (136-145) Potassium Level 4.6 mmol/L (3.5-5.1) Chloride Level 111 mmol/L (98-107) Carbon Dioxide Level 27 mmol/L (21-32) Anion Gap 11 (6-14) Blood Urea Nitrogen 43 mg/dL (8-26) Creatinine 0.9 mg/dL (0.7-1.3) Estimated GFR (Cockcroft-Gault) 86.4 Glucose Level 99 mg/dL (70-99) Calcium Level 7.9 mg/dL (8.5-10.1) Magnesium Level 2.6 mg/dL (1.8-2.4) Creatine Kinase 702 U/L (39-308) Test 05/12/20 10:57 05/12/20 17:33 05/12/20 19:14 05/13/20 01:29 Glucose (Fingerstick) 141 mg/dL (70-99) 166 mg/dL (70-99) 179 mg/dL (70-99) 160 mg/dL (70-99) Test 05/13/20 06:03 Glucose (Fingerstick) 188 mg/dL (70-99) Laboratory Tests Test 05/12/20 10:57 05/12/20 17:33 05/12/20 19:14 05/13/20 01:29 Glucose (Fingerstick) 141 mg/dL (70-99) 166 mg/dL (70-99) 179 mg/dL (70-99) 160 mg/dL (70-99) Test 05/13/20 06:03 Glucose (Fingerstick) 188 mg/dL (70-99) Medications Active Scripts Medications Dose Route/Sig Max Daily Dose Days Date Category [Fluconazole] 100 MG Tablet 200 Mg PO DAILY 10 07/17/19 Rx Amox Tr-K Clv 875-125 Mg Tab (Amoxicillin/Potassium Clav) 1 Each Tablet 1 Tab PO BID 10 07/17/19 Rx Hydrocodone-Acetamin 5-325 mg (Hydrocodone/Acetaminophen) 1 Each Tablet 1 Each PO PRN Q6HRS PRN 03/14/19 Reported Diclofenac Sodium 75 Mg Tablet.dr 1 Tab PO BID 03/14/19 Reported Amlodipine Besylate 5 Mg Tablet 5 Mg PO DAILY 03/14/19 Reported Furosemide 40 Mg Tablet 1 Tab PO DAILY 03/14/19 Reported Lisinopril 30 Mg Tablet 1 Tab PO DAILY 03/14/19 Reported Actos (Pioglitazone Hcl) 30 Mg Tablet 1 Tab PO DAILY 01/31/18 Reported Comments cxr 3/4 increase effusions Impression . 1. Acute hypoxic respiratory failure secondary to acute encephalopathy and acute rhabdomyolysis along with metabolic acidosis. 2. Acute rhabdomyolysis 3. Bilateral interstitial infiltrates, likely suspect interstitial edema.now increase effusions 4. Leukopenia, which is now resolved and has leukocytosis, improving, neg COVID. 5. Acute kidney injury secondary to rhabdomyolysis. 6. Hyponatremia. resolved 7. E-Coli sepsis 8. Obesity, suspect obstructive sleep apnea Plan . Updated 05/13/2020 Off of oxygen supplementation no respiratory distress Dysphagia, n.p.o. per speech Continue maintenance IV fluids Antibiotics per ID 05/12/2020 Off of oxygen supplementation doing well Transfer out of the ICU Antibiotics per ID Patient extubated on May 11, 2020 Wean FiO2 As needed Lasix Follow nephrology input DVT GI prophylaxis Outpatient polysomnogram DARI WEATHERS MD May 13, 2020 09:07
--- NOTE | 2020-05-13 09:08 | PN ---
DATE: 05/13/2020 LOCATION: He is in room 676. SUBJECTIVE: This 60-year-old white male remains hospitalized after sepsis, acute respiratory failure requiring intubation. He is more awake and alert this morning and seems to be tracking well. He complains bitterly of dry mouth and wanting something to drink. Nursing does tell me that he failed the swallowing test yesterday and he is not sure that he remembers even doing it. OBJECTIVE: VITAL SIGNS: Stable. He is afebrile. Blood pressures are starting to raise and we may need to address this in the next day or two. CHEST: Clear. HEART: Regular. ABDOMEN: Benign. LABORATORY DATA: Blood cultures once this morning are reporting out E. coli pansensitive. Again on blood cultures from 05/10/2020, which is unclear to me how this is a case with ongoing IV antibiotics since admission, but will defer to ID. Ultrasound of his right arm yesterday is negative for DVT. IMPRESSION: 1. Acute respiratory failure due to encephalopathy with intubation and now extubation, currently on 2 liters per nasal cannula this morning. E. coli sepsis with ongoing positive blood cultures. 2. Fevers, better. 3. Acute kidney injury, resolved. 4. Diabetes with decent blood sugars. PLAN: Continue IV antibiotics, supportive care, begin to mobilize daily swallow evaluation, blood pressure medicines likely in the near future. BUSTER LEMONS MD DR: JAZIEL/helene JOB#: [id number] / [id number]
[2020-05-13 09:37] LABS: CALCIUM 8.6 mg/dL (8.5-10.1); GFR 76.5; MAGNESIUM 2.6 mg/dL (1.8-2.4); POTASSIUM 3.3 mmol/L (3.5-5.1)
--- NOTE | 2020-05-13 11:01 | PDOC ---
Renal-Progress Notes Subjective Notes Notes SOME CONFUSION History of Present Illness Hx of present illness STABLE Vitals Vitals Vital Signs Date Time Temp Pulse Resp B/P (MAP) Pulse Ox O2 Delivery O2 Flow Rate FiO2 05/13/20 08:00 Room Air 05/13/20 07:34 98.4 83 18 170/67 (101) 97 2.0 98.4 Weight Weight [ ] I.O. Intake and Output Intake and Output 05/13/20 07:00 Intake Total 30 ml Output Total 1800 ml Balance -1770 ml Intake Oral 30 ml Output Urine Total 1800 ml # Bowel Movements 2 Labs Labs Laboratory Tests Test 05/12/20 17:33 05/12/20 19:14 05/13/20 01:29 05/13/20 06:03 Glucose (Fingerstick) 166 mg/dL (70-99) 179 mg/dL (70-99) 160 mg/dL (70-99) 188 mg/dL (70-99) Test 05/13/20 08:45 Sodium Level 148 mmol/L (136-145) Potassium Level 3.3 mmol/L (3.5-5.1) Chloride Level 113 mmol/L (98-107) Carbon Dioxide Level 28 mmol/L (21-32) Anion Gap 7 (6-14) Blood Urea Nitrogen 32 mg/dL (8-26) Creatinine 1.0 mg/dL (0.7-1.3) Estimated GFR (Cockcroft-Gault) 76.5 Glucose Level 184 mg/dL (70-99) Calcium Level 8.6 mg/dL (8.5-10.1) Phosphorus Level 3.0 mg/dL (2.6-4.7) Magnesium Level 2.6 mg/dL (1.8-2.4) Micro Micro Microbiology 05/10/20 Blood Culture - Preliminary, Resulted 05/04/20 Urine Culture - Final, Complete 05/04/20 Antimicrobic Susceptibility - Final, Complete Review of Systems Constitutional: yes: other (CONFUSED) Physical Exam General Appearance: no apparent distress Skin: warm Respiratory: decreased breath sounds Heart: S1S2 Abdomen: soft Genitourinary: bladder flat, schaffer catheter Extremities: edema Assessment Assessment IMP AUGUSTINE-RESOLVING HYPERNATREMIA HYPOKALEMIA EDEMA SEPSIS ACUTE HYPOXIC RESP FAILURE RHABDOMYOLYSIS-IMPROVING FAILED SWALLOW STUDY-DYSPHAGIA DECONDITIONING MET ENCEPHALOPATHY PLAN F/U CPK SCHEDULED IV LASIX STOP D5W PPN ANTIBIOTICS LABS IN AM WILL FOLLOW DAVID STOVALL MD May 13, 2020 11:01
[2020-05-13 11:12] VITALS: BP 187/72
--- NOTE | 2020-05-13 11:29 | PDOC ---
Infectious Disease Note Subjective Subjective awake, feeling good ROS ROS no n/v/d/ Vital Sign Vital Signs Vital Signs Date Time Temp Pulse Resp B/P (MAP) Pulse Ox O2 Delivery O2 Flow Rate FiO2 05/13/20 11:12 98.1 83 20 187/72 (110) 97 Nasal Cannula 2.0 98.1 Physical Exam PHYSICAL EXAM GENERAL awake, comfortable VITAL SIGNS: stable HEENT: Both pupils are round and reacting. No conjunctival lesion. Orally intubated, unable to see the mouth. NECK: Supple, no JVP, no lymphadenopathy. LUNGS: Decreased breath sounds. HEART: S1, S2 regular. No gallop or murmur. ABDOMEN: Soft, nontender, no organomegaly. EXTREMITIES: No edema or cyanosis. SKIN: Unremarkable. NEUROLOGIC: A and O x 3 , no focal deficit Labs Lab Laboratory Tests Test 05/12/20 17:33 05/12/20 19:14 05/13/20 01:29 05/13/20 06:03 Glucose (Fingerstick) 166 mg/dL (70-99) 179 mg/dL (70-99) 160 mg/dL (70-99) 188 mg/dL (70-99) Test 05/13/20 08:45 Sodium Level 148 mmol/L (136-145) Potassium Level 3.3 mmol/L (3.5-5.1) Chloride Level 113 mmol/L (98-107) Carbon Dioxide Level 28 mmol/L (21-32) Anion Gap 7 (6-14) Blood Urea Nitrogen 32 mg/dL (8-26) Creatinine 1.0 mg/dL (0.7-1.3) Estimated GFR (Cockcroft-Gault) 76.5 Glucose Level 184 mg/dL (70-99) Calcium Level 8.6 mg/dL (8.5-10.1) Phosphorus Level 3.0 mg/dL (2.6-4.7) Magnesium Level 2.6 mg/dL (1.8-2.4) Micro BLOOD CULTURE LC Final Final GRAM NEGATIVE RODS FINAL ID= [ESCHERICHIA COLI] ESCHERICHIA COLI ANTIMICROBIAL SUSCEPTIBILITY Final Comment NEG RAD 56 ESCHERICHIA COLI ANTIBIOTIC RESULT INTERPRETATION AMPICILLIN/SULBACTAM <=4/2 S AMIKACIN <=16 S AMPICILLIN <=8 S AMOXICILLIN/K CLAVULANATE <=8/4 S AZTREONAM <=4 S CEFTRIAXONE <=1 S CEFTAZIDIME <=1 S CEFOTAXIME <=2 S CEFOXITIN <=8 S CEFAZOLIN <=2 S CIPROFLOXACIN <=0.25 S CEFEPIME <=2 S CEFUROXIME 8 S CEFTAZIDIME/AVIBACTAM <=4 S ERTAPENEM <=0.5 S GENTAMICIN <=2 S LEVOFLOXACIN <=0.5 S MEROPENEM <=1 S PIPERACILLIN/TAZOBACTAM <=8 S TRIMETHOPRIM/SULFAMETHOXAZOLE <=0.5/9.5 S TETRACYCLINE <=4 S TOBRAMYCIN <=2 S Unless otherwise specified, Testing Performed by: [facility] [address] [place] [address] For Inquires, the Physician may contact the Microbiology department at [phone] -- Objective Assessment IMPRESSION: 1. Encephalopathy. 2. Leukopenia, from sepsis , now leukocytosis 3. Respiratory failure. 4. Hyponatremia. 5. Acute kidney injury. 6. Circulatory failure. 7. Obesity. 8. COVID neg 9 G neg selvin sepsis/ E coli 10 UTI with sepsis Plan Plan of Care 1. Continue supportive care. 2. Hydration. 3. cont Zosyn. CURT POST MD May 13, 2020 11:29
--- NOTE | 2020-05-13 12:03 | PDOC ---
PROGRESS NOTES Date of Service DATE: 05/13/20 TIME: 12:01 Assessment Problems Medical Problems: (1) Acute kidney failure Status: Acute (2) Altered mental status Status: Acute (3) Hyperkalemia Status: Acute (4) Hyperuricemia Status: Acute (5) Lymphopenia Status: Acute (6) Respiratory failure with hypoxia Status: Acute Metabolic encephalopathy due to renal failure, respiratory failure, E-Coli sepsis, no evidence of primary neurological issue such as stroke, seizures, central nervous system infection. Rhabdomyolysis and leukopenia, improving Develop tachypnea on extubation attempt 05/06 Also has acute kidney injury, COVID neg Extubated 05/11, still has some dysphagia Plan Treat medical diseases Holding off on additional neurological studies such as electroencephalogram Subjective Denies pain Objective Vital Signs Date Time Temp Pulse Resp B/P (MAP) Pulse Ox O2 Delivery O2 Flow Rate FiO2 05/13/20 11:12 98.1 83 20 187/72 (110) 97 Nasal Cannula 2.0 98.1 Intake and Output 05/13/20 07:00 Intake Total 30 ml Output Total 1800 ml Balance -1770 ml Intake Oral 30 ml Output Urine Total 1800 ml # Bowel Movements 2 PHYSICAL EXAM Eyes open, looks at observer,follows commands, knows he is in the hospital, does not know the date PERRL. EOMI. CN: no focal findings. Muscle tone: normal. Muscle strength: 3/5 DTR: 0+ Plantar reflex: Flexor Gait: not examined in bed. Sensory exam: no abnormal findings. No cerebellar signs elicited. Review of Relevant I have reviewed the following items elina (where applicable) has been applied. Labs Laboratory Tests Test 05/11/20 12:33 05/11/20 13:47 05/11/20 18:12 05/12/20 00:19 Glucose (Fingerstick) 233 mg/dL (70-99) 92 mg/dL (70-99) 65 mg/dL (70-99) O2 Saturation 97 % (92-99) Arterial Blood pH 7.48 (7.35-7.45) Arterial Blood pH (Temp corrected) 7.45 Arterial Blood pCO2 at Patient Temp 41 mmHg (35-46) Arterial Blood pCO2 (Temp correct) 44 mmHg Arterial Blood pO2 at Patient Temp 91 mmHg (65-108) Arterial Blood pO2 (Temp corrected) 103 mmHg Arterial Blood HCO3 30 mmol/L (21-28) Arterial Blood Base Excess 6 mmol/L (-3-3) FiO2 40 vent Test 05/12/20 03:13 05/12/20 06:07 05/12/20 07:30 05/12/20 08:02 Glucose (Fingerstick) 109 mg/dL (70-99) 123 mg/dL (70-99) 105 mg/dL (70-99) Sodium Level 149 mmol/L (136-145) Potassium Level 4.6 mmol/L (3.5-5.1) Chloride Level 111 mmol/L (98-107) Carbon Dioxide Level 27 mmol/L (21-32) Anion Gap 11 (6-14) Blood Urea Nitrogen 43 mg/dL (8-26) Creatinine 0.9 mg/dL (0.7-1.3) Estimated GFR (Cockcroft-Gault) 86.4 Glucose Level 99 mg/dL (70-99) Calcium Level 7.9 mg/dL (8.5-10.1) Magnesium Level 2.6 mg/dL (1.8-2.4) Creatine Kinase 702 U/L (39-308) Test 05/12/20 10:57 05/12/20 17:33 05/12/20 19:14 05/13/20 01:29 Glucose (Fingerstick) 141 mg/dL (70-99) 166 mg/dL (70-99) 179 mg/dL (70-99) 160 mg/dL (70-99) Test 05/13/20 06:03 05/13/20 08:45 05/13/20 11:36 Glucose (Fingerstick) 188 mg/dL (70-99) 183 mg/dL (70-99) Sodium Level 148 mmol/L (136-145) Potassium Level 3.3 mmol/L (3.5-5.1) Chloride Level 113 mmol/L (98-107) Carbon Dioxide Level 28 mmol/L (21-32) Anion Gap 7 (6-14) Blood Urea Nitrogen 32 mg/dL (8-26) Creatinine 1.0 mg/dL (0.7-1.3) Estimated GFR (Cockcroft-Gault) 76.5 Glucose Level 184 mg/dL (70-99) Calcium Level 8.6 mg/dL (8.5-10.1) Phosphorus Level 3.0 mg/dL (2.6-4.7) Magnesium Level 2.6 mg/dL (1.8-2.4) Laboratory Tests Test 05/12/20 17:33 05/12/20 19:14 05/13/20 01:29 05/13/20 06:03 Glucose (Fingerstick) 166 mg/dL (70-99) 179 mg/dL (70-99) 160 mg/dL (70-99) 188 mg/dL (70-99) Test 05/13/20 08:45 05/13/20 11:36 Sodium Level 148 mmol/L (136-145) Potassium Level 3.3 mmol/L (3.5-5.1) Chloride Level 113 mmol/L (98-107) Carbon Dioxide Level 28 mmol/L (21-32) Anion Gap 7 (6-14) Blood Urea Nitrogen 32 mg/dL (8-26) Creatinine 1.0 mg/dL (0.7-1.3) Estimated GFR (Cockcroft-Gault) 76.5 Glucose Level 184 mg/dL (70-99) Calcium Level 8.6 mg/dL (8.5-10.1) Phosphorus Level 3.0 mg/dL (2.6-4.7) Magnesium Level 2.6 mg/dL (1.8-2.4) Glucose (Fingerstick) 183 mg/dL (70-99) Microbiology 05/10/20 Blood Culture - Preliminary, Resulted 05/04/20 Urine Culture - Final, Complete 05/04/20 Antimicrobic Susceptibility - Final, Complete Medications Current Medications Sodium Chloride 1,000 ml @ 1,000 mls/hr 1X ONCE IV Last administered on 05/04/20at 11:32; Start 05/04/20 at 11:45; Stop 05/04/20 at 12:44; Status DC Ceftriaxone Sodium (Rocephin) 1 gm 1X ONCE IVP Last administered on 05/04/20at 11:33; Start 05/04/20 at 11:45; Stop 05/04/20 at 11:46; Status DC Norepinephrine Bitartrate 8 mg/ Dextrose 258 ml @ 35.314 mls/ hr CONT PRN IV PER PROTOCOL Last administered on 05/04/20at 17:00; Start 05/04/20 at 17:00; Stop 05/04/20 at 18:09; Status DC Naloxone HCl (Narcan) 0.4 mg 1X ONCE IV Last administered on 05/04/20at 17:00; Start 05/04/20 at 17:00; Stop 05/04/20 at 17:01; Status DC Propofol 0 ml @ As Directed STK-MED ONCE IV ; Start 05/04/20 at 17:20; Stop 05/04/20 at 17:20; Status DC Succinylcholine Chloride (Anectine) 200 mg STK-MED ONCE .ROUTE ; Start 05/04/20 at 17:20; Stop 05/04/20 at 17:20; Status DC Rocuronium Austin (Zemuron) 50 mg STK-MED ONCE .ROUTE ; Start 05/04/20 at 17:20; Stop 05/04/20 at 17:21; Status DC Etomidate (Amidate) 20 mg STK-MED ONCE IV ; Start 05/04/20 at 17:20; Stop 05/04/20 at 17:21; Status DC Sodium Bicarbonate 150 meq/Dextrose 1,150 ml @ 150 mls/hr Q7H40M IV Last administered on 05/06/20at 07:44; Start 05/04/20 at 18:30; Stop 05/06/20 at 16:49; Status DC Fentanyl Citrate 30 ml @ 0 mls/hr CONT PRN IV SEE PROTOCOL; Start 05/04/20 at 18:15; Stop 05/11/20 at 17:42; Status DC Midazolam HCl 100 ml @ 0 mls/hr CONT PRN IV SEE PROTOCOL Last administered on 05/06/20at 19:09; Start 05/04/20 at 18:15; Stop 05/11/20 at 17:42; Status DC Norepinephrine Bitartrate 32 mg/ Dextrose 282 ml @ 9.65 mls/hr CONT PRN IV PER PROTOCOL Last administered on 05/06/20at 14:08; Start 05/04/20 at 18:15; Stop 05/11/20 at 17:42; Status DC Piperacillin Sod/ Tazobactam Sod 2.25 gm/Sodium Chloride 50 ml @ 100 mls/hr Q6HRS IV Last administered on 05/06/20at 06:36; Start 05/05/20 at 08:00; Stop 05/06/20 at 08:39; Status DC Daptomycin 700 mg/ Sodium Chloride 50 ml @ 100 mls/hr Q48H IV Last administered on 05/05/20at 08:42; Start 05/05/20 at 09:00; Stop 05/06/20 at 09:09; Status DC Insulin Glargine (Lantus Syringe) 20 unit DAILY10 SQ Last administered on 05/05/20at 10:03; Start 05/05/20 at 10:00; Stop 05/06/20 at 09:08; Status DC Insulin Human Lispro (HumaLOG) 0-7 UNITS Q6HRS SQ Last administered on 05/11/20at 12:38; Start 05/05/20 at 12:00 Dextrose (Dextrose 50%-Water Syringe) 12.5 gm PRN Q15MIN PRN IV SEE COMMENTS Last administered on 05/12/20at 00:24; Start 05/05/20 at 09:15 Heparin Sodium (Porcine) (Heparin Sodium) 5,000 unit Q8HRS SQ Last administered on 05/13/20at 05:07; Start 05/05/20 at 14:00 Famotidine (Pepcid Vial) 20 mg QHS IVP Last administered on 05/08/20at 21:36; Start 05/05/20 at 21:00; Stop 05/09/20 at 10:18; Status DC Phenylephrine HCl (PHENYLEPHRINE in 0.9% NACL PF) 1 mg STK-MED ONCE IV ; Start 05/04/20 at 18:00; Stop 05/05/20 at 12:11; Status DC Etomidate (Amidate) 20 mg STK-MED ONCE IV ; Start 05/04/20 at 18:00; Stop 05/05/20 at 12:28; Status DC Rocuronium [place] (Zemuron) 50 mg STK-MED ONCE .ROUTE ; Start 05/04/20 at 18:00; Stop 05/05/20 at 12:28; Status DC Succinylcholine Chloride (Anectine) 200 mg STK-MED ONCE .ROUTE ; Start 05/04/20 at 18:00; Stop 05/05/20 at 12:28; Status DC Propofol (Diprivan) 1,000 mg STK-MED ONCE IV ; Start 05/04/20 at 18:00; Stop 05/05/20 at 12:28; Status DC Piperacillin Sod/ Tazobactam Sod 3.375 gm/Sodium Chloride 50 ml @ 100 mls/hr Q6HRS IV Last administered on 05/11/20 05:31; Start 05/06/20 at 12:00; Stop 05/11/20 at 10:49; Status DC Insulin Glargine (Lantus Syringe) 40 unit DAILY10 SQ Last administered on 05/06/20at 09:37; Start 05/06/20 at 10:00; Stop 05/07/20 at 07:18; Status DC Fentanyl Citrate (Fentanyl 2ml Vial) 100 mcg STK-MED ONCE .ROUTE ; Start 05/06/20 at 11:35; Stop 05/06/20 at 11:35; Status DC Fentanyl Citrate (Fentanyl 2ml Vial) 50 mcg PRN Q2HR PRN IVP PAIN Last administered on 05/11/20at 08:10; Start 05/06/20 at 10:45 Insulin Glargine (Lantus Syringe) 60 unit DAILY SQ Last administered on 05/08/20at 09:01; Start 05/07/20 at 09:00; Stop 05/08/20 at 09:02; Status DC Fentanyl Citrate (Fentanyl 2ml Vial) 100 mcg STK-MED ONCE .ROUTE ; Start 05/06/20 at 11:40; Stop 05/07/20 at 08:51; Status DC Propofol 100 ml @ 5.247 mls/ hr CONT PRN IV PER PROTOCOL Last administered on 05/10/20at 06:17; Start 05/07/20 at 09:30; Stop 05/11/20 at 17:42; Status DC Insulin Glargine (Lantus Syringe) 90 unit DAILY SQ Last administered on 05/09/20 08:22; Start 05/09/20 at 09:00; Stop 05/09/20 at 09:46; Status DC Insulin Glargine (Lantus Syringe) 30 unit 1X ONCE SQ Last administered on 05/08/20 09:28; Start 05/08/20 at 09:30; Stop 05/08/20 at 09:31; Status DC Furosemide (Lasix) 40 mg 1X ONCE IVP Last administered on 05/08/20at 09:32; Start 05/08/20 at 10:00; Stop 05/08/20 at 10:01; Status DC Insulin Glargine (Lantus Syringe) 100 unit DAILY SQ ; Start 05/10/20 at 09:00; Stop 05/10/20 at 08:11; Status DC Pantoprazole Sodium (PROTONIX VIAL for IV PUSH) 40 mg DAILYAC IVP Last administered on 05/13/20at 08:10; Start 05/10/20 at 07:30 Furosemide (Lasix) 40 mg 1X ONCE IVP Last administered on 05/09/20at 11:09; Start 05/09/20 at 11:00; Stop 05/09/20 at 11:02; Status DC Hydralazine HCl (Apresoline Inj) 10 mg PRN Q4HRS PRN IVP ELEVATED BP, SEE COMMENTS Last administered on 05/09/20at 11:10; Start 05/09/20 at 11:15 Insulin Glargine (Lantus Syringe) 110 unit DAILY SQ Last administered on 05/11/20at 08:11; Start 05/10/20 at 09:00 Dexmedetomidine HCl 400 mcg/ Sodium Chloride 100 ml @ 0 mls/hr CONT PRN IV PER PROTOCOL Last administered on 05/11/20at 11:37; Start 05/10/20 at 10:30; Stop 05/11/20 at 17:42; Status DC Sodium Chloride 500 ml @ 500 mls/hr 1X PRN PRN IV SEE COMMENTS; Start 05/10/20 at 10:30; Stop 05/11/20 at 17:42; Status DC Atropine Sulfate (ATROPINE 0.5mg SYRINGE) 0.5 mg PRN Q5MIN PRN IV SEE COMMENTS; Start 05/10/20 at 10:30; Stop 05/11/20 at 17:42; Status DC Furosemide (Lasix) 40 mg 1X ONCE IVP Last administered on 05/10/20at 11:27; Start 05/10/20 at 11:00; Stop 05/10/20 at 11:01; Status DC Daptomycin 690 mg/ Sodium Chloride 50 ml @ 100 mls/hr Q24H IV Last administered on 05/10/20at 20:26; Start 05/10/20 at 20:00; Stop 05/11/20 at 10:49; Status DC Acetaminophen (Tylenol) 650 mg PRN Q6HRS PRN PEG MILD PAIN / TEMP > 100.3'F Last administered on 05/10/20at 20:20; Start 05/10/20 at 20:00 Meropenem 1 gm/ Sodium Chloride 100 ml @ 200 mls/hr Q8HRS IV Last administered on 05/13/20at 05:05; Start 05/11/20 at 14:00 Dextrose 1,000 ml @ 50 mls/hr Q20H IV Last administered on 05/12/20at 19:34; Start 05/11/20 at 18:45; Stop 05/13/20 at 11:03; Status DC Furosemide (Lasix) 60 mg 1X ONCE IVP Last administered on 05/12/20at 10:35; Start 05/12/20 at 10:30; Stop 05/12/20 at 10:31; Status DC Potassium Chloride/Water 100 ml @ 100 mls/hr Q1H IV ; Start 05/13/20 at 12:00; Stop 05/13/20 at 13:59 Amino Acids/ Glycerin/ Electrolytes 1,000 ml @ 80 mls/hr [id number] IV ; Start 05/13/20 at 11:15 Furosemide (Lasix) 80 mg [id number] IVP ; Start 05/13/20 at 11:15 Active Scripts Active [Fluconazole] 100 MG Tablet 200 Mg PO DAILY 10 Days Amox Tr-K Clv 875-125 Mg Tab (Amoxicillin/Potassium Clav) 1 Each Tablet 1 Tab PO BID 10 Days Reported Hydrocodone-Acetamin 5-325 mg (Hydrocodone/Acetaminophen) 1 Each Tablet 1 Each PO PRN Q6HRS PRN Diclofenac Sodium 75 Mg Tablet.dr 1 Tab PO BID Amlodipine Besylate 5 Mg Tablet 5 Mg PO DAILY Furosemide 40 Mg Tablet 1 Tab PO DAILY Lisinopril 30 Mg Tablet 1 Tab PO DAILY Actos (Pioglitazone Hcl) 30 Mg Tablet 1 Tab PO DAILY Vitals/I & O Vital Sign - Last 24 Hours 05/12/20 05/12/20 05/12/20 05/12/20 15:00 19:00 20:05 23:00 Temp 97.6 97.8 97.9 97.6 97.8 97.9 Pulse 84 83 80 Resp 18 18 18 B/P (MAP) 130/50 (76) 154/65 (94) 158/68 (98) Pulse Ox 95 93 94 O2 Delivery Room Air Nasal Cannula Nasal Cannula Nasal Cannula O2 Flow Rate 2.0 2.0 2.0 05/13/20 05/13/20 05/13/20 05/13/20 02:52 07:34 08:00 11:12 Temp 98.2 98.4 98.1 98.2 98.4 98.1 Pulse 82 83 83 Resp 18 18 20 B/P (MAP) 190/68 (108) 170/67 (101) 187/72 (110) Pulse Ox 96 97 97 O2 Delivery Nasal Cannula Nasal Cannula Room Air Nasal Cannula O2 Flow Rate 2.0 2.0 2.0 Intake and Output 05/12/20 05/12/20 05/13/20 15:00 23:00 07:00 Intake Total 30 ml 0 ml Output Total 1800 ml Balance 30 ml 0 ml -1800 ml Justicifation of Admission Dx: Justifications for Admission: Justification of Admission Dx: N/A VERO GOMEZ MD May 13, 2020 12:03
--- NOTE | 2020-05-13 12:34 | NUR ---
CINTIA following for discharge planning. CINTIA spoke with RN and reviewed chart. Pt transferred to 6S from ICU. CINTIA met with pt and pt's brother Manuel at bedside ([phone]). Pt on 2l 02 and IV Meropenem. Pt extubated 05/11. Pt failed bed side swallow today, 05/13 per speech. Pt remains NPO and is to start of PPN. Pt COVID negative. Recommendation is for LTACH. Pt and pt's brother agreeable to referral to LTACH and stated no preference in provider. Pt choice of vendor form completed. Referral faxed to Leanna at [facility]. Pt has [employer] [place] Medicaid. CINTIA following. Addendum: 05/13/20 at 1416 by DANIEL CHAMBERLAIN CINTIA confirmed referral received by [place]. Referral being reviewed for possible discharge to [facility].
[2020-05-13] MEDS: AMINO AC 3%/ELECTROLYTE/GLYCER 1,000 ML IV SCH (14:20)
[2020-05-13] MEDS: POTASSIUM CHLORIDE 10MEQ 100 ML IV SCH ×2 (14:21→15:56)
[2020-05-13] MEDS: FUROSEMIDE 40 MG/4 ML VIAL. IVP SCH ×2 (14:22→15:56)
[2020-05-13 15:35] VITALS: BP 130/64
[2020-05-13 19:00] VITALS: BP 149/69
[2020-05-13 22:49] VITALS: BP 155/72
[2020-05-14 02:55] VITALS: BP 151/69
[2020-05-14] MEDS: AMINO AC 3%/ELECTROLYTE/GLYCER 1,000 ML IV SCH ×2 (04:28→15:28)
[2020-05-14] MEDS: MEROPENEM 1 GM in IV NORMAL SALINE 100ML 100 ML IV SCH ×3 (06:25→21:59)
[2020-05-14] MEDS: HEPARIN for SUB-Q USE 5,000 UNIT/ML VIAL. SQ SCH ×3 (06:31→22:01)
[2020-05-14 07:00] VITALS: BP 159/78
--- NOTE | 2020-05-14 08:49 | PDOC ---
PULMONARY PROGRESS NOTES DATE: 05/14/20 TIME: 08:49 Subjective Patient awake off of oxygen not more short of air Vitals Vital Signs Date Time Temp Pulse Resp B/P (MAP) Pulse Ox O2 Delivery O2 Flow Rate FiO2 05/14/20 07:00 102 18 159/78 (105) 95 Nasal Cannula 2.0 05/14/20 02:55 97.8 97.8 Comments Awake alert no respiratory distress Lungs: Other (b lat diminished bs ) Cardiovascular: S1, S2 Abdomen: Soft, Non-tender, Other (obese) Extremities: Other (2+edema) Skin: Warm Labs Laboratory Tests Test 05/12/20 10:57 05/12/20 17:33 05/12/20 19:14 05/13/20 01:29 Glucose (Fingerstick) 141 mg/dL (70-99) 166 mg/dL (70-99) 179 mg/dL (70-99) 160 mg/dL (70-99) Test 05/13/20 06:03 05/13/20 08:45 05/13/20 11:36 05/13/20 18:24 Glucose (Fingerstick) 188 mg/dL (70-99) 183 mg/dL (70-99) 196 mg/dL (70-99) Sodium Level 148 mmol/L (136-145) Potassium Level 3.3 mmol/L (3.5-5.1) Chloride Level 113 mmol/L (98-107) Carbon Dioxide Level 28 mmol/L (21-32) Anion Gap 7 (6-14) Blood Urea Nitrogen 32 mg/dL (8-26) Creatinine 1.0 mg/dL (0.7-1.3) Estimated GFR (Cockcroft-Gault) 76.5 Glucose Level 184 mg/dL (70-99) Calcium Level 8.6 mg/dL (8.5-10.1) Phosphorus Level 3.0 mg/dL (2.6-4.7) Magnesium Level 2.6 mg/dL (1.8-2.4) Test 05/14/20 00:50 05/14/20 06:14 Glucose (Fingerstick) 192 mg/dL (70-99) 219 mg/dL (70-99) Laboratory Tests Test 05/13/20 11:36 05/13/20 18:24 05/14/20 00:50 05/14/20 06:14 Glucose (Fingerstick) 183 mg/dL (70-99) 196 mg/dL (70-99) 192 mg/dL (70-99) 219 mg/dL (70-99) Medications Active Scripts Medications Dose Route/Sig Max Daily Dose Days Date Category [Fluconazole] 100 MG Tablet 200 Mg PO DAILY 10 07/17/19 Rx Amox Tr-K Clv 875-125 Mg Tab (Amoxicillin/Potassium Clav) 1 Each Tablet 1 Tab PO BID 07/17/19 Rx Hydrocodone-Acetamin 5-325 mg (Hydrocodone/Acetaminophen) 1 Each Tablet 1 Each PO PRN Q6HRS PRN 03/14/19 Reported Diclofenac Sodium 75 Mg Tablet.dr 1 Tab PO BID 03/14/19 Reported Amlodipine Besylate 5 Mg Tablet 5 Mg PO DAILY 03/14/19 Reported Furosemide 40 Mg Tablet 1 Tab PO DAILY 03/14/19 Reported Lisinopril 30 Mg Tablet 1 Tab PO DAILY 03/14/19 Reported Actos (Pioglitazone Hcl) 30 Mg Tablet 1 Tab PO DAILY 01/31/18 Reported Comments cxr 3/4 increase effusions Impression . 1. Acute hypoxic respiratory failure secondary to acute encephalopathy and acute rhabdomyolysis along with metabolic acidosis. 2. Acute rhabdomyolysis 3. Bilateral interstitial infiltrates, likely suspect interstitial edema.now increase effusions 4. Leukopenia, which is now resolved and has leukocytosis, improving, neg COVID. 5. Acute kidney injury secondary to rhabdomyolysis. 6. Hyponatremia. resolved 7. E-Coli sepsis 8. Obesity, suspect obstructive sleep apnea 9. Leukocytosis, per ID, Plan . Updated 05/14 CT abdomen pelvis per ID Discussed with speech follow-up dysphagia evaluation N.p.o. for now Antibiotics per ID Updated 05/13/2020 Off of oxygen supplementation no respiratory distress Dysphagia, n.p.o. per speech Continue maintenance IV fluids Antibiotics per ID 05/12/2020 Off of oxygen supplementation doing well Transfer out of the ICU Antibiotics per ID Patient extubated on May 11, 2020 Wean FiO2 As needed Lasix Follow nephrology input DVT GI prophylaxis Outpatient polysomnogram DARI WEATHERS MD May 14, 2020 08:49
[2020-05-14] MEDS: FUROSEMIDE 40 MG/4 ML VIAL. IVP SCH ×2 (09:17→16:41)
--- NOTE | 2020-05-14 09:17 | PDOC ---
Infectious Disease Note Subjective Subjective awake, feeling good ROS ROS no n/v/d/ Vital Sign Vital Signs Vital Signs Date Time Temp Pulse Resp B/P (MAP) Pulse Ox O2 Delivery O2 Flow Rate FiO2 05/14/20 07:00 102 18 159/78 (105) 95 Nasal Cannula 2.0 05/14/20 02:55 97.8 97.8 Physical Exam PHYSICAL EXAM GENERAL awake, comfortable VITAL SIGNS: stable HEENT: Both pupils are round and reacting. No conjunctival lesion. Orally intubated, unable to see the mouth. NECK: Supple, no JVP, no lymphadenopathy. LUNGS: Decreased breath sounds. HEART: S1, S2 regular. No gallop or murmur. ABDOMEN: Soft, nontender, no organomegaly. EXTREMITIES: No edema or cyanosis. SKIN: Unremarkable. NEUROLOGIC: A and O x 3 , no focal deficit Labs Lab Laboratory Tests Test 05/13/20 11:36 05/13/20 18:24 05/14/20 00:50 05/14/20 06:14 Glucose (Fingerstick) 183 mg/dL (70-99) 196 mg/dL (70-99) 192 mg/dL (70-99) 219 mg/dL (70-99) Test 05/14/20 08:50 Glucose (Fingerstick) 216 mg/dL (70-99) Micro BLOOD CULTURE LC Final Final GRAM NEGATIVE RODS FINAL ID= [ESCHERICHIA COLI] ESCHERICHIA COLI ANTIMICROBIAL SUSCEPTIBILITY Final Comment NEG RAD 56 ESCHERICHIA COLI ANTIBIOTIC RESULT INTERPRETATION AMPICILLIN/SULBACTAM <=4/2 S AMIKACIN <=16 S AMPICILLIN <=8 S AMOXICILLIN/K CLAVULANATE <=8/4 S AZTREONAM <=4 S CEFTRIAXONE <=1 S CEFTAZIDIME <=1 S CEFOTAXIME <=2 S CEFOXITIN <=8 S CEFAZOLIN <=2 S CIPROFLOXACIN <=0.25 S CEFEPIME <=2 S CEFUROXIME 8 S CEFTAZIDIME/AVIBACTAM <=4 S ERTAPENEM <=0.5 S GENTAMICIN <=2 S LEVOFLOXACIN <=0.5 S MEROPENEM <=1 S PIPERACILLIN/TAZOBACTAM <=8 S TRIMETHOPRIM/SULFAMETHOXAZOLE <=0.5/9.5 S TETRACYCLINE <=4 S TOBRAMYCIN <=2 S Unless otherwise specified, Testing Performed by: [address] [address] For Inquires, the Physician may contact the Microbiology department at [phone] Objective Assessment IMPRESSION: 1. Encephalopathy. 2. Leukopenia, from sepsis , now leukocytosis 3. Respiratory failure. 4. Hyponatremia. 5. Acute kidney injury. 6. Circulatory failure. 7. Obesity. 8. COVID neg 9 G neg selvin sepsis/ E coli 10 UTI with sepsis Plan Plan of Care ct abd and pelvis 1. Continue supportive care. 2. Hydration. 3. cont CURT Chapman MD May 14, 2020 09:17
[2020-05-14] MEDS: INSULIN GLARGINE SYRINGE. SQ SCH (09:21)
[2020-05-14] MEDS: INSULIN LISPRO 300 UNITS/3 ML VIAL. SQ SCH ×4 (09:23→17:13)
--- NOTE | 2020-05-14 10:10 | RAD ---
CT of the abdomen and pelvis without contrast 05/14/2020 INDICATION: Sepsis. COMPARISON STUDY: None available. TECHNIQUE: Multidetector CT imaging of the abdomen and pelvis performed without contrast. FINDINGS: Trace effusion in bilateral atelectasis is noted in the lung bases. The patient's arms over lie the upper abdomen. This in conjunction with body habitus limits evaluation of the upper abdomen. The apical most portion of the liver is not included on exam. No gross abnormality of the liver or sp sandra is identified. Gallbladder appears be grossly unremarkable. The adrenal glands are unremarkable. Pancreas is atrophic but otherwise unremarkable. Minimal nonspecific perinephric stranding is seen b ilaterally. No significant hydronephrosis is identified. However there is a 7 mm stone in the proximal left urete r. The bladder is essentially completely decompressed secondary to catheter placement. Right ureter i s normal in course and caliber. There is no bowel obstruction. No acute inflammatory change involving visualized bowel is identified. No acute osseous changes iden tified in the interim. Postoperative changes involving the T9 vertebra noted. These are partially visualized. Multilevel com pression deformities are seen involving the T11 , T12, and L1, L2, 3, and 4 vertebral bodies. L1 fra cture is similar morphology with respect to recent ct lumbar spine. Findings could reflect a posttrau matic etiology with poor bony healing and chronic osteoporosis. Given the somewhat unusual appearance , lytic process is difficult to exclude. History of bone marrow biopsies for elevated light chains an d possible multiple myeloma is noted, though no other lytic lesions are identified on today's exam. P rior sacroplasty noted. IMPRESSION: 1. 7 mm stone in the proximal left ureter without significant hydronephrosis. Minimal nonspecific per inephric stranding is noted bilaterally. 3. Similar morphology of the L1 vertebral fracture. This may represent poor healing of a traumatic fr acture. No lytic process is difficult to exclude as described. Multiple other chronic compression def ormities again noted.. Prior sacral plasty noted. 3. Trace bilateral pleural effusions with underlying compressive atelectasis CT DOSING PQRS STATEMENT: One or more of the following individualized dose reduction techniques were utilized for this examinat ion: 1. Automated exposure control 2. Adjustment of the mA and/or kV according to patient size 3. Use of iterative reconstruction technique Electronically signed by: Will Crooks MD (05/14/2020 10:08 AM) [id number]
[2020-05-14 11:00] VITALS: BP 187/88
[2020-05-14 11:05] LABS: CALCIUM 8.8 mg/dL (8.5-10.1); GFR 76.5; MAGNESIUM 2.3 mg/dL (1.8-2.4); PHOSPHORUS 3.3 mg/dL (2.6-4.7); POTASSIUM 3.4 mmol/L (3.5-5.1)
--- NOTE | 2020-05-14 11:10 | NUR ---
CINTIA following for discharge planning. Spoke with RN and reviewed chart. SW remains confused and NPO per failed swallow. Speech to see pt again today. Duggan to be removed today. Coordinated care with Leanna from [facility] and insurance authorization was submitted and remains pending. [facility] has beds with possible discharge tomorrow, 05/15. Dr. Carroll notified. CINTIA following.
--- NOTE | 2020-05-14 11:26 | PDOC ---
Renal-Progress Notes Subjective Notes Notes NO NEW COMPLAINTS History of Present Illness Hx of present illness REMAINS CONFUSED Vitals Vitals Vital Signs Date Time Temp Pulse Resp B/P (MAP) Pulse Ox O2 Delivery O2 Flow Rate FiO2 05/14/20 11:00 98.8 109 19 187/88 (121) 96 Nasal Cannula 2.0 98.8 Weight Weight [ ] I.O. Intake and Output Intake and Output 05/14/20 07:00 Intake Total 1200 ml Output Total 4930 ml Balance -3730 ml Intake Oral 0 ml IV Total 1100 ml Tube Feeding 100 ml Output Urine Total 4930 ml Labs Labs Laboratory Tests Test 05/13/20 11:36 05/13/20 18:24 05/14/20 00:50 05/14/20 06:14 Glucose (Fingerstick) 183 mg/dL (70-99) 196 mg/dL (70-99) 192 mg/dL (70-99) 219 mg/dL (70-99) Test 05/14/20 08:50 05/14/20 10:35 Glucose (Fingerstick) 216 mg/dL (70-99) Sodium Level 153 mmol/L (136-145) Potassium Level 3.4 mmol/L (3.5-5.1) Chloride Level 115 mmol/L (98-107) Carbon Dioxide Level 30 mmol/L (21-32) Anion Gap 8 (6-14) Blood Urea Nitrogen 34 mg/dL (8-26) Creatinine 1.0 mg/dL (0.7-1.3) Estimated GFR (Cockcroft-Gault) 76.5 Glucose Level 204 mg/dL (70-99) Calcium Level 8.8 mg/dL (8.5-10.1) Phosphorus Level 3.3 mg/dL (2.6-4.7) Magnesium Level 2.3 mg/dL (1.8-2.4) Micro Micro Microbiology 05/10/20 Blood Culture - Final, Complete 05/04/20 Urine Culture - Final, Complete 05/04/20 Antimicrobic Susceptibility - Final, Complete Review of Systems Constitutional: yes: other (CONFUSED) Physical Exam General Appearance: no apparent distress Skin: warm Respiratory: decreased breath sounds Heart: S1S2 Abdomen: soft Genitourinary: bladder flat, schaffer catheter Extremities: edema Assessment Assessment IMP AUGUSTINE-RESOLVING HYPERNATREMIA HYPOKALEMIA EDEMA SEPSIS ACUTE HYPOXIC RESP FAILURE RHABDOMYOLYSIS-IMPROVING FAILED SWALLOW STUDY-DYSPHAGIA DECONDITIONING MET ENCEPHALOPATHY PLAN CONT SCHEDULED IV LASIX NEEDS MORE NEG FLUID BALANCE REPLACE K PPN ANTIBIOTICS CT ABD/PELVIS PER ID LABS IN AM WILL FOLLOW DAVID STOVALL MD May 14, 2020 11:26
[2020-05-14] MEDS: fentaNYL PF VIAL 100 MCG/2 ML VIAL IVP PRN ×2 (11:31→15:27)
[2020-05-14] MEDS: PANTOPRAZOLE IV PUSH 40 MG VIAL. IVP SCH (12:29)
[2020-05-14 15:00] VITALS: BP 142/92
[2020-05-14 19:00] VITALS: BP 140/63
--- NOTE | 2020-05-14 23:30 | NUR ---
PPN infusing through PIV in left forearm. At shift change, noted that arm was swelling and IV had infiltrated. PPN switched to PIV in right forearm. Infusing without complications. Saline lock left arm removed.
[2020-05-14 23:44] VITALS: BP 128/58
[2020-05-15 03:00] VITALS: BP 132/63
--- NOTE | 2020-05-15 03:02 | PN ---
DATE: 05/14/2020 LOCATION: He is in room #674. SUBJECTIVE: The patient is awake and alert, lying in bed, still asking for something to drink. Nursing states that he did fail a swallow test once again yesterday. OBJECTIVE: VITAL SIGNS: Stable. He is afebrile. His voice is much clearer today and less gravelly, which would suspect he may pass a swallowing test today. CHEST: Clear. HEART: Regular. ABDOMEN: Benign. I discussed with ID the case and they are going to add a CT abdomen and pelvis due to the ongoing positive blood cultures despite good antibiotic therapy. IMPRESSION: 1. Gram-negative bacteremia with sepsis. 2. Leukopenia from sepsis, now with leukocytosis. 3. Acute kidney injury, resolved. 4. Respiratory failure with mechanical ventilation, resolved. PLAN: Continue present antibiotics. Mobilize as possible. Ongoing swallowing test where he can start taking stuff p.o., otherwise same. BUSTER LEMONS MD DR: JAZIEL/helene JOB#: [id number] / [id number]
[2020-05-15] MEDS: AMINO AC 3%/ELECTROLYTE/GLYCER 1,000 ML IV SCH ×2 (05:05→16:17)
[2020-05-15] MEDS: HEPARIN for SUB-Q USE 5,000 UNIT/ML VIAL. SQ SCH ×3 (05:07→21:45)
[2020-05-15] MEDS: MEROPENEM 1 GM in IV NORMAL SALINE 100ML 100 ML IV SCH (05:07)
[2020-05-15 05:10] LABS: CALCIUM 8.6 mg/dL (8.5-10.1); CREATININE 1.1 mg/dL (0.7-1.3); GFR 68.5; MAGNESIUM 2.3 mg/dL (1.8-2.4); POTASSIUM 3.3 mmol/L (3.5-5.1)
[2020-05-15] MEDS: INSULIN LISPRO 300 UNITS/3 ML VIAL. SQ SCH ×4 (06:00→16:46)
[2020-05-15 07:00] VITALS: BP 138/61
--- NOTE | 2020-05-15 08:46 | PDOC ---
Infectious Disease Note Subjective Subjective awake, feeling good ROS ROS No nausea vomiting diarrhea or pain Vital Sign Vital Signs Vital Signs Date Time Temp Pulse Resp B/P (MAP) Pulse Ox O2 Delivery O2 Flow Rate FiO2 05/15/20 07:00 98.6 95 22 138/61 (86) 95 Nasal Cannula 2.0 98.6 Physical Exam PHYSICAL EXAM GENERAL awake, comfortable VITAL SIGNS: stable HEENT: Both pupils are round and reacting. No conjunctival lesion. Orally intubated, unable to see the mouth. NECK: Supple, no JVP, no lymphadenopathy. LUNGS: Decreased breath sounds. HEART: S1, S2 regular. No gallop or murmur. ABDOMEN: Soft, nontender, no organomegaly. EXTREMITIES: No edema or cyanosis. SKIN: Unremarkable. NEUROLOGIC: A and O x 3 , no focal deficit Labs Lab Laboratory Tests Test 05/14/20 08:50 05/14/20 10:35 05/14/20 13:55 05/14/20 17:11 Glucose (Fingerstick) 216 mg/dL (70-99) 165 mg/dL (70-99) 175 mg/dL (70-99) Sodium Level 153 mmol/L (136-145) Potassium Level 3.4 mmol/L (3.5-5.1) Chloride Level 115 mmol/L (98-107) Carbon Dioxide Level 30 mmol/L (21-32) Anion Gap 8 (6-14) Blood Urea Nitrogen 34 mg/dL (8-26) Creatinine 1.0 mg/dL (0.7-1.3) Estimated GFR (Cockcroft-Gault) 76.5 Glucose Level 204 mg/dL (70-99) Calcium Level 8.8 mg/dL (8.5-10.1) Phosphorus Level 3.3 mg/dL (2.6-4.7) Magnesium Level 2.3 mg/dL (1.8-2.4) Test 05/15/20 04:00 05/15/20 06:03 Sodium Level 158 mmol/L (136-145) Potassium Level 3.3 mmol/L (3.5-5.1) Chloride Level 119 mmol/L (98-107) Carbon Dioxide Level 29 mmol/L (21-32) Anion Gap 10 (6-14) Blood Urea Nitrogen 42 mg/dL (8-26) Creatinine 1.1 mg/dL (0.7-1.3) Estimated GFR (Cockcroft-Gault) 68.5 Glucose Level 212 mg/dL (70-99) Calcium Level 8.6 mg/dL (8.5-10.1) Phosphorus Level 4.0 mg/dL (2.6-4.7) Magnesium Level 2.3 mg/dL (1.8-2.4) Glucose (Fingerstick) 192 mg/dL (70-99) Micro BLOOD CULTURE LC Final Final GRAM NEGATIVE RODS FINAL ID= [ESCHERICHIA COLI] ESCHERICHIA COLI ANTIMICROBIAL SUSCEPTIBILITY Final Comment NEG RAD 56 ESCHERICHIA COLI ANTIBIOTIC RESULT INTERPRETATION AMPICILLIN/SULBACTAM <=4/2 S AMIKACIN <=16 S AMPICILLIN <=8 S AMOXICILLIN/K CLAVULANATE <=8/4 S AZTREONAM <=4 S CEFTRIAXONE <=1 S CEFTAZIDIME <=1 S CEFOTAXIME <=2 S CEFOXITIN <=8 S CEFAZOLIN <=2 S CIPROFLOXACIN <=0.25 S CEFEPIME <=2 S CEFUROXIME 8 S CEFTAZIDIME/AVIBACTAM <=4 S ERTAPENEM <=0.5 S GENTAMICIN <=2 S LEVOFLOXACIN <=0.5 S MEROPENEM <=1 S PIPERACILLIN/TAZOBACTAM <=8 S TRIMETHOPRIM/SULFAMETHOXAZOLE <=0.5/9.5 S TETRACYCLINE <=4 S TOBRAMYCIN <=2 S Unless otherwise specified, Testing Performed by: [address] [id number] For Inquires, the Physician may contact the Microbiology department at [phone] Objective Assessment IMPRESSION: 1. Encephalopathy. 2. Leukopenia, from sepsis , now leukocytosis 3. Respiratory failure. 4. Hyponatremia. 5. Acute kidney injury. 6. Circulatory failure. 7. Obesity. 8. COVID neg 9 G neg selvin sepsis/ E coli 10 UTI with sepsis 7 mm ureteral stone Plan Plan of Care ct abd and pelvis noted 1. Continue supportive care. 2. Hydration. Antibiotic can be switched over to oral although patient is not allowed oral yet so will use Rocephin IV Ureteral stone is probably the reason why recurrence on E. coli bacteremia happened CURT POST MD May 15, 2020 08:46
--- NOTE | 2020-05-15 08:58 | PDOC ---
PROGRESS NOTES Date of Service DATE: 05/15/20 TIME: 08:30 Subjective Subjective Remains on 2 L nasal cannula. No new symptoms Objective Objective Vital Signs Date Time Temp Pulse Resp B/P (MAP) Pulse Ox O2 Delivery O2 Flow Rate FiO2 05/15/20 07:00 98.6 95 22 138/61 (86) 95 Nasal Cannula 2.0 98.6 Intake and Output 05/15/20 07:00 Intake Total 0 ml Output Total 3800 ml Balance -3800 ml Intake Oral 0 ml Output Urine Total 3800 ml Physical Exam Abdomen: Normal bowel sounds, Soft Heart: Regular rate General: Alert Lungs: Clear to auscultation Neuro: Normal speech Assessment Assessment Eschericia coli bacteremia Leukocytosis, likely reactive Thrombocytopenia, likely secondary to sepsis Acute renal failure,, now resolved Hypernatremia Normocytic anemia likely secondary to acute illness Plan Plan of Care -Reviewed results of serum protein electrophoresis and free light chains. SPEP did not show paraprotein. Free light chains are proportionately elevated, as expected with renal insufficiency and chronic inflammation. 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 -I reviewed the results of bone marrow biopsy obtained in March 2019. This does not show any evidence of neoplasia -Noted results of CT abdomen. Would recommend DEXA scan for assessment of bone density as outpatient -Would not recommend any additional hematologic evaluation at this time -Would recommend outpatient follow-up with primary care with repeat CBC 1 to 2 months after resolution of his current acute illness. He may benefit from hematology consultation if thrombocytopenia persists despite resolution of his current illness and bacteremia -Evaluation and management of bacteremia per infectious diseases service -Rest per Dr. [place] MD Medical Oncology/Hematology Ph: [phone] Comment Review of Relevant I have reviewed the following items elina (where applicable) has been applied. Labs Laboratory Tests Test 05/13/20 08:45 05/13/20 11:36 05/13/20 18:24 05/14/20 00:50 Sodium Level 148 mmol/L (136-145) Potassium Level 3.3 mmol/L (3.5-5.1) Chloride Level 113 mmol/L (98-107) Carbon Dioxide Level 28 mmol/L (21-32) Anion Gap 7 (6-14) Blood Urea Nitrogen 32 mg/dL (8-26) Creatinine 1.0 mg/dL (0.7-1.3) Estimated GFR (Cockcroft-Gault) 76.5 Glucose Level 184 mg/dL (70-99) Calcium Level 8.6 mg/dL (8.5-10.1) Phosphorus Level 3.0 mg/dL (2.6-4.7) Magnesium Level 2.6 mg/dL (1.8-2.4) Glucose (Fingerstick) 183 mg/dL (70-99) 196 mg/dL (70-99) 192 mg/dL (70-99) Test 05/14/20 06:14 05/14/20 08:50 05/14/20 10:35 05/14/20 13:55 Glucose (Fingerstick) 219 mg/dL (70-99) 216 mg/dL (70-99) 165 mg/dL (70-99) Sodium Level 153 mmol/L (136-145) Potassium Level 3.4 mmol/L (3.5-5.1) Chloride Level 115 mmol/L (98-107) Carbon Dioxide Level 30 mmol/L (21-32) Anion Gap 8 (6-14) Blood Urea Nitrogen 34 mg/dL (8-26) Creatinine 1.0 mg/dL (0.7-1.3) Estimated GFR (Cockcroft-Gault) 76.5 Glucose Level 204 mg/dL (70-99) Calcium Level 8.8 mg/dL (8.5-10.1) Phosphorus Level 3.3 mg/dL (2.6-4.7) Magnesium Level 2.3 mg/dL (1.8-2.4) Test 05/14/20 17:11 05/15/20 04:00 05/15/20 06:03 Glucose (Fingerstick) 175 mg/dL (70-99) 192 mg/dL (70-99) Sodium Level 158 mmol/L (136-145) Potassium Level 3.3 mmol/L (3.5-5.1) Chloride Level 119 mmol/L (98-107) Carbon Dioxide Level 29 mmol/L (21-32) Anion Gap 10 (6-14) Blood Urea Nitrogen 42 mg/dL (8-26) Creatinine 1.1 mg/dL (0.7-1.3) Estimated GFR (Cockcroft-Gault) 68.5 Glucose Level 212 mg/dL (70-99) Calcium Level 8.6 mg/dL (8.5-10.1) Phosphorus Level 4.0 mg/dL (2.6-4.7) Magnesium Level 2.3 mg/dL (1.8-2.4) Laboratory Tests Test 05/14/20 08:50 05/14/20 10:35 05/14/20 13:55 05/14/20 17:11 Glucose (Fingerstick) 216 mg/dL (70-99) 165 mg/dL (70-99) 175 mg/dL (70-99) Sodium Level 153 mmol/L (136-145) Potassium Level 3.4 mmol/L (3.5-5.1) Chloride Level 115 mmol/L (98-107) Carbon Dioxide Level 30 mmol/L (21-32) Anion Gap 8 (6-14) Blood Urea Nitrogen 34 mg/dL (8-26) Creatinine 1.0 mg/dL (0.7-1.3) Estimated GFR (Cockcroft-Gault) 76.5 Glucose Level 204 mg/dL (70-99) Calcium Level 8.8 mg/dL (8.5-10.1) Phosphorus Level 3.3 mg/dL (2.6-4.7) Magnesium Level 2.3 mg/dL (1.8-2.4) Test 05/15/20 04:00 05/15/20 06:03 Sodium Level 158 mmol/L (136-145) Potassium Level 3.3 mmol/L (3.5-5.1) Chloride Level 119 mmol/L (98-107) Carbon Dioxide Level 29 mmol/L (21-32) Anion Gap 10 (6-14) Blood Urea Nitrogen 42 mg/dL (8-26) Creatinine 1.1 mg/dL (0.7-1.3) Estimated GFR (Cockcroft-Gault) 68.5 Glucose Level 212 mg/dL (70-99) Calcium Level 8.6 mg/dL (8.5-10.1) Phosphorus Level 4.0 mg/dL (2.6-4.7) Magnesium Level 2.3 mg/dL (1.8-2.4) Glucose (Fingerstick) 192 mg/dL (70-99) Microbiology 05/10/20 Blood Culture - Final, Complete 05/04/20 Urine Culture - Final, Complete 05/04/20 Antimicrobic Susceptibility - Final, Complete Medications Current Medications Sodium Chloride 1,000 ml @ 1,000 mls/hr 1X ONCE IV Last administered on 05/04/20at 11:32; Start 05/04/20 at 11:45; Stop 05/04/20 at 12:44; Status DC Ceftriaxone Sodium (Rocephin) 1 gm 1X ONCE IVP Last administered on 05/04/20at 11:33; Start 05/04/20 at 11:45; Stop 05/04/20 at 11:46; Status DC Norepinephrine Bitartrate 8 mg/ Dextrose 258 ml @ 35.314 mls/ hr CONT PRN IV PER PROTOCOL Last administered on 05/04/20at 17:00; Start 05/04/20 at 17:00; Stop 05/04/20 at 18:09; Status DC Naloxone HCl (Narcan) 0.4 mg 1X ONCE IV Last administered on 05/04/20at 17:00; Start 05/04/20 at 17:00; Stop 05/04/20 at 17:01; Status DC Propofol 0 ml @ As Directed STK-MED ONCE IV ; Start 05/04/20 at 17:20; Stop 05/04/20 at 17:20; Status DC Succinylcholine Chloride (Anectine) 200 mg STK-MED ONCE .ROUTE ; Start 05/04/20 at 17:20; Stop 05/04/20 at 17:20; Status DC Rocuronium Woodruff (Zemuron) 50 mg STK-MED ONCE .ROUTE ; Start 05/04/20 at 17:20; Stop 05/04/20 at 17:21; Status DC Etomidate (Amidate) 20 mg STK-MED ONCE IV ; Start 05/04/20 at 17:20; Stop 05/04/20 at 17:21; Status DC Sodium Bicarbonate 150 meq/Dextrose 1,150 ml @ 150 mls/hr Q7H40M IV Last administered on 05/06/20at 07:44; Start 05/04/20 at 18:30; Stop 05/06/20 at 16:49; Status DC Fentanyl Citrate 30 ml @ 0 mls/hr CONT PRN IV SEE PROTOCOL; Start 05/04/20 at 18:15; Stop 05/11/20 at 17:42; Status DC Midazolam HCl 100 ml @ 0 mls/hr CONT PRN IV SEE PROTOCOL Last administered on 05/06/20at 19:09; Start 05/04/20 at 18:15; Stop 05/11/20 at 17:42; Status DC Norepinephrine Bitartrate 32 mg/ Dextrose 282 ml @ 9.65 mls/hr CONT PRN IV PER PROTOCOL Last administered on 05/06/20at 14:08; Start 05/04/20 at 18:15; Stop 05/11/20 at 17:42; Status DC Piperacillin Sod/ Tazobactam Sod 2.25 gm/Sodium Chloride 50 ml @ 100 mls/hr Q6HRS IV Last administered on 05/06/20at 06:36; Start 05/05/20 at 08:00; Stop 05/06/20 at 08:39; Status DC Daptomycin 700 mg/ Sodium Chloride 50 ml @ 100 mls/hr Q48H IV Last administered on 05/05/20at 08:42; Start 05/05/20 at 09:00; Stop 05/06/20 at 09:09; Status DC Insulin Glargine (Lantus Syringe) 20 unit DAILY10 SQ Last administered on 05/05/20at 10:03; Start 05/05/20 at 10:00; Stop 05/06/20 at 09:08; Status DC Insulin Human Lispro (HumaLOG) 0-7 UNITS Q6HRS SQ Last administered on 05/14/20at 09:23; Start 05/05/20 at 12:00 Dextrose (Dextrose 50%-Water Syringe) 12.5 gm PRN Q15MIN PRN IV SEE COMMENTS Last administered on 05/12/20at 00:24; Start 05/05/20 at 09:15 Heparin Sodium (Porcine) (Heparin Sodium) 5,000 unit Q8HRS SQ Last administered on 05/15/20at 05:07; Start 05/05/20 at 14:00 Famotidine (Pepcid Vial) 20 mg QHS IVP Last administered on 05/08/20at 21:36; Start 05/05/20 at 21:00; Stop 05/09/20 at 10:18; Status DC Phenylephrine HCl (PHENYLEPHRINE in 0.9% NACL PF) 1 mg STK-MED ONCE IV ; Start 05/04/20 at 18:00; Stop 05/05/20 at 12:11; Status DC Etomidate (Amidate) 20 mg STK-MED ONCE IV ; Start 05/04/20 at 18:00; Stop 05/05/20 at 12:28; Status DC Rocuronium Woodruff (Zemuron) 50 mg STK-MED ONCE .ROUTE ; Start 05/04/20 at 18:00; Stop 05/05/20 at 12:28; Status DC Succinylcholine Chloride (Anectine) 200 mg STK-MED ONCE .ROUTE ; Start 05/04/20 at 18:00; Stop 05/05/20 at 12:28; Status DC Propofol (Diprivan) 1,000 mg STK-MED ONCE IV ; Start 05/04/20 at 18:00; Stop 05/05/20 at 12:28; Status DC Piperacillin Sod/ Tazobactam Sod 3.375 gm/Sodium Chloride 50 ml @ 100 mls/hr Q6HRS IV Last administered on 05/11/20at 05:31; Start 05/06/20 at 12:00; Stop 05/11/20 at 10:49; Status DC Insulin Glargine (Lantus Syringe) 40 unit DAILY10 SQ Last administered on 05/06/20at 09:37; Start 05/06/20 at 10:00; Stop 05/07/20 at 07:18; Status DC Fentanyl Citrate (Fentanyl 2ml Vial) 100 mcg STK-MED ONCE .ROUTE ; Start 05/06/20 at 11:35; Stop 05/06/20 at 11:35; Status DC Fentanyl Citrate (Fentanyl 2ml Vial) 50 mcg PRN Q2HR PRN IVP PAIN Last administered on 05/14/20at 15:27; Start 05/06/20 at 10:45 Insulin Glargine (Lantus Syringe) 60 unit DAILY SQ Last administered on 05/08/20at 09:01; Start 05/07/20 at 09:00; Stop 05/08/20 at 09:02; Status DC Fentanyl Citrate (Fentanyl 2ml Vial) 100 mcg STK-MED ONCE .ROUTE ; Start 05/06/20 at 11:40; Stop 05/07/20 at 08:51; Status DC Propofol 100 ml @ 5.247 mls/ hr CONT PRN IV PER PROTOCOL Last administered on 05/10/20at 06:17; Start 05/07/20 at 09:30; Stop 05/11/20 at 17:42; Status DC Insulin Glargine (Lantus Syringe) 90 unit DAILY SQ Last administered on 05/09/20a t 08:22; Start 05/09/20 at 09:00; Stop 05/09/20 at 09:46; Status DC Insulin Glargine (Lantus Syringe) 30 unit 1X ONCE SQ Last administered on 05/08/20at 09:28; Start 05/08/20 at 09:30; Stop 05/08/20 at 09:31; Status DC Furosemide (Lasix) 40 mg 1X ONCE IVP Last administered on 05/08/20at 09:32; Start 05/08/20 at 10:00; Stop 05/08/20 at 10:01; Status DC Insulin Glargine (Lantus Syringe) 100 unit DAILY SQ ; Start 05/10/20 at 09:00; Stop 05/10/20 at 08:11; Status DC Pantoprazole Sodium (PROTONIX VIAL for IV PUSH) 40 mg DAILYAC IVP Last administered on 05/14/20at 12:29; Start 05/10/20 at 07:30 Furosemide (Lasix) 40 mg 1X ONCE IVP Last administered on 05/09/20at 11:09; Start 05/09/20 at 11:00; Stop 05/09/20 at 11:02; Status DC Hydralazine HCl (Apresoline Inj) 10 mg PRN Q4HRS PRN IVP ELEVATED BP, SEE COMMENTS Last administered on 05/09/20at 11:10; Start 05/09/20 at 11:15 Insulin Glargine (Lantus Syringe) 110 unit DAILY SQ Last administered on 05/14/20at 09:21; Start 05/10/20 at 09:00 Dexmedetomidine HCl 400 mcg/ Sodium Chloride 100 ml @ 0 mls/hr CONT PRN IV PER PROTOCOL Last administered on 05/11/20at 11:37; Start 05/10/20 at 10:30; Stop 05/11/20 at 17:42; Status DC Sodium Chloride 500 ml @ 500 mls/hr 1X PRN PRN IV SEE COMMENTS; Start 05/10/20 at 10:30; Stop 05/11/20 at 17:42; Status DC Atropine Sulfate (ATROPINE 0.5mg SYRINGE) 0.5 mg PRN Q5MIN PRN IV SEE COMMENTS; Start 05/10/20 at 10:30; Stop 05/11/20 at 17:42; Status DC Furosemide (Lasix) 40 mg 1X ONCE IVP Last administered on 05/10/20at 11:27; Start 05/10/20 at 11:00; Stop 05/10/20 at 11:01; Status DC Daptomycin 690 mg/ Sodium Chloride 50 ml @ 100 mls/hr Q24H IV Last administered on 05/10/20at 20:26; Start 05/10/20 at 20:00; Stop 05/11/20 at 10:49; Status DC Acetaminophen (Tylenol) 650 mg PRN Q6HRS PRN PEG MILD PAIN / TEMP > 100.3'F Last administered on 05/10/20at 20:20; Start 05/10/20 at 20:00 Meropenem 1 gm/ Sodium Chloride 100 ml @ 200 mls/hr Q8HRS IV Last administered on 05/15/20at 05:07; Start 05/11/20 at 14:00 Dextrose 1,000 ml @ 50 mls/hr Q20H IV Last administered on 05/12/20at 19:34; Start 05/11/20 at 18:45; Stop 05/13/20 at 11:03; Status DC Furosemide (Lasix) 60 mg 1X ONCE IVP Last administered on 05/12/20at 10:35; Start 05/12/20 at 10:30; Stop 05/12/20 at 10:31; Status DC Potassium Chloride/Water 100 ml @ 100 mls/hr Q1H IV Last administered on 05/13/20at 15:56; Start 05/13/20 at 12:00; Stop 05/13/20 at 13:59; Status DC Amino Acids/ Glycerin/ Electrolytes 1,000 ml @ 80 mls/hr [id number] IV Last administered on 05/15/20at 05:05; Start 05/13/20 at 11:15 Furosemide (Lasix) 80 mg [id number] IVP Last administered on 05/14/20at 16:41; Start 05/13/20 at 11:15 Active Scripts Active [Fluconazole] 100 MG Tablet 200 Mg PO DAILY 10 Days Amox Tr-K Clv 875-125 Mg Tab (Amoxicillin/Potassium Clav) 1 Each Tablet 1 Tab PO BID 10 Days Reported Hydrocodone-Acetamin 5-325 mg (Hydrocodone/Acetaminophen) 1 Each Tablet 1 Each PO PRN Q6HRS PRN Diclofenac Sodium 75 Mg Tablet.dr 1 Tab PO BID Amlodipine Besylate 5 Mg Tablet 5 Mg PO DAILY Furosemide 40 Mg Tablet 1 Tab PO DAILY Lisinopril 30 Mg Tablet 1 Tab PO DAILY Actos (Pioglitazone Hcl) 30 Mg Tablet 1 Tab PO DAILY Vitals/I & O Vital Sign - Last 24 Hours 05/14/20 05/14/20 05/14/20 05/14/20 11:00 11:31 12:20 15:00 Temp 98.8 97.7 98.8 97.7 Pulse 109 121 Resp 19 19 18 B/P (MAP) 187/88 (121) 142/92 (109) Pulse Ox 96 96 96 100 O2 Delivery Nasal Cannula Nasal Cannula Nasal Cannula Nasal Cannula O2 Flow Rate 2.0 2.0 2.0 2.0 05/14/20 05/14/20 05/14/20 05/14/20 15:27 16:05 19:00 20:00 Temp 99.1 99.1 Pulse 112 Resp 20 B/P (MAP) 140/63 (88) Pulse Ox 96 96 96 O2 Delivery Nasal Cannula Nasal Cannula Nasal Cannula Nasal Cannula O2 Flow Rate 2.0 2.0 2.0 2.0 05/14/20 05/15/20 05/15/20 23:44 03:00 07:00 Temp 99.3 98.2 98.6 99.3 98.2 98.6 Pulse 103 96 95 Resp 20 20 22 B/P (MAP) 128/58 (81) 132/63 (86) 138/61 (86) Pulse Ox 93 94 95 O2 Delivery Nasal Cannula Nasal Cannula Nasal Cannula O2 Flow Rate 2.0 2.0 2.0 Intake and Output 05/14/20 05/14/20 05/15/20 15:00 23:00 07:00 Intake Total 0 ml 0 ml Output Total 1350 ml 1850 ml 600 ml Balance -1350 ml -1850 ml -600 ml Justifications for Admission Other Justification BRIELLE BAY MD May 15, 2020 08:58
--- NOTE | 2020-05-15 09:48 | PDOC ---
PULMONARY PROGRESS NOTES DATE: 05/15/20 TIME: 09:48 Subjective Patient not more short of air. Currently has a fever. Vitals Vital Signs Date Time Temp Pulse Resp B/P (MAP) Pulse Ox O2 Delivery O2 Flow Rate FiO2 05/15/20 07:00 98.6 95 22 138/61 (86) 95 Nasal Cannula 2.0 98.6 Comments Awake alert no respiratory distress Lungs: Other (b lat diminished bs ) Cardiovascular: S1, S2 Abdomen: Soft, Non-tender, Other (obese) Extremities: Other (2+edema) Skin: Warm Labs Laboratory Tests Test 05/13/20 11:36 05/13/20 18:24 05/14/20 00:50 05/14/20 06:14 Glucose (Fingerstick) 183 mg/dL (70-99) 196 mg/dL (70-99) 192 mg/dL (70-99) 219 mg/dL (70-99) Test 05/14/20 08:50 05/14/20 10:35 05/14/20 13:55 05/14/20 17:11 Glucose (Fingerstick) 216 mg/dL (70-99) 165 mg/dL (70-99) 175 mg/dL (70-99) Sodium Level 153 mmol/L (136-145) Potassium Level 3.4 mmol/L (3.5-5.1) Chloride Level 115 mmol/L (98-107) Carbon Dioxide Level 30 mmol/L (21-32) Anion Gap 8 (6-14) Blood Urea Nitrogen 34 mg/dL (8-26) Creatinine 1.0 mg/dL (0.7-1.3) Estimated GFR (Cockcroft-Gault) 76.5 Glucose Level 204 mg/dL (70-99) Calcium Level 8.8 mg/dL (8.5-10.1) Phosphorus Level 3.3 mg/dL (2.6-4.7) Magnesium Level 2.3 mg/dL (1.8-2.4) Test 05/15/20 04:00 05/15/20 06:03 Sodium Level 158 mmol/L (136-145) Potassium Level 3.3 mmol/L (3.5-5.1) Chloride Level 119 mmol/L (98-107) Carbon Dioxide Level 29 mmol/L (21-32) Anion Gap 10 (6-14) Blood Urea Nitrogen 42 mg/dL (8-26) Creatinine 1.1 mg/dL (0.7-1.3) Estimated GFR (Cockcroft-Gault) 68.5 Glucose Level 212 mg/dL (70-99) Calcium Level 8.6 mg/dL (8.5-10.1) Phosphorus Level 4.0 mg/dL (2.6-4.7) Magnesium Level 2.3 mg/dL (1.8-2.4) Glucose (Fingerstick) 192 mg/dL (70-99) Laboratory Tests Test 05/14/20 10:35 05/14/20 13:55 05/14/20 17:11 05/15/20 04:00 Sodium Level 153 mmol/L (136-145) 158 mmol/L (136-145) Potassium Level 3.4 mmol/L (3.5-5.1) 3.3 mmol/L (3.5-5.1) Chloride Level 115 mmol/L (98-107) 119 mmol/L (98-107) Carbon Dioxide Level 30 mmol/L (21-32) 29 mmol/L (21-32) Anion Gap 8 (6-14) 10 (6-14) Blood Urea Nitrogen 34 mg/dL (8-26) 42 mg/dL (8-26) Creatinine 1.0 mg/dL (0.7-1.3) 1.1 mg/dL (0.7-1.3) Estimated GFR (Cockcroft-Gault) 76.5 68.5 Glucose Level 204 mg/dL (70-99) 212 mg/dL (70-99) Calcium Level 8.8 mg/dL (8.5-10.1) 8.6 mg/dL (8.5-10.1) Phosphorus Level 3.3 mg/dL (2.6-4.7) 4.0 mg/dL (2.6-4.7) Magnesium Level 2.3 mg/dL (1.8-2.4) 2.3 mg/dL (1.8-2.4) Glucose (Fingerstick) 165 mg/dL (70-99) 175 mg/dL (70-99) Test 05/15/20 06:03 Glucose (Fingerstick) 192 mg/dL (70-99) Medications Active Scripts Medications Dose Route/Sig Max Daily Dose Days Date Category [Fluconazole] 100 MG Tablet 200 Mg PO DAILY 10 07/17/19 Rx Amox Tr-K Clv 875-125 Mg Tab (Amoxicillin/Potassium Clav) 1 Each Tablet 1 Tab PO BID 10 07/17/19 Rx Hydrocodone-Acetamin 5-325 mg (Hydrocodone/Acetaminophen) 1 Each Tablet 1 Each PO PRN Q6HRS PRN 03/14/19 Reported Diclofenac Sodium 75 Mg Tablet.dr 1 Tab PO BID 03/14/19 Reported Amlodipine Besylate 5 Mg Tablet 5 Mg PO DAILY 03/14/19 Reported Furosemide 40 Mg Tablet 1 Tab PO DAILY 03/14/19 Reported Lisinopril 30 Mg Tablet 1 Tab PO DAILY 03/14/19 Reported Actos (Pioglitazone Hcl) 30 Mg Tablet 1 Tab PO DAILY 01/31/18 Reported Comments cxr 3/4 increase effusions Impression . 1. Acute hypoxic respiratory failure secondary to acute encephalopathy and acute rhabdomyolysis along with metabolic acidosis. 2. Acute rhabdomyolysis 3. Bilateral interstitial infiltrates, likely suspect interstitial edema.now increase effusions 4. Leukopenia, which is now resolved and has leukocytosis, improving, neg COVID. 5. Acute kidney injury secondary to rhabdomyolysis. 6. Hyponatremia. resolved 7. E-Coli sepsis 8. Obesity, suspect obstructive sleep apnea 9. Leukocytosis, per ID, 10. 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 Updated 05/15 Respiratory status compensated, patient continues to be on room air We will see as needed, call if needed. Updated 05/14 CT abdomen pelvis per ID Discussed with speech follow-up dysphagia evaluation N.p.o. for now Antibiotics per ID Updated 05/13/2020 Off of oxygen supplementation no respiratory distress Dysphagia, n.p.o. per speech Continue maintenance IV fluids Antibiotics per ID 05/12/2020 Off of oxygen supplementation doing well Transfer out of the ICU Antibiotics per ID Patient extubated on May 11, 2020 Wean FiO2 As needed Lasix Follow nephrology input DVT GI prophylaxis Outpatient polysomnogram DARI WEATHERS MD May 15, 2020 09:48
[2020-05-15] MEDS: PANTOPRAZOLE IV PUSH 40 MG VIAL. IVP SCH (10:10)
[2020-05-15] MEDS: cefTRIAXone IV Push 2 GM VIAL. IVP SCH (10:10)
[2020-05-15] MEDS: FUROSEMIDE 40 MG/4 ML VIAL. IVP SCH ×2 (10:11→16:18)
[2020-05-15] MEDS: INSULIN GLARGINE SYRINGE. SQ SCH (10:13)
[2020-05-15] MEDS: fentaNYL PF VIAL 100 MCG/2 ML VIAL IVP PRN (10:48)
[2020-05-15 11:00] VITALS: BP 142/83
--- NOTE | 2020-05-15 12:32 | PDOC ---
Renal-Progress Notes Subjective Notes Notes LESS CONFUSED History of Present Illness Hx of present illness STABLE Vitals Vitals Vital Signs Date Time Temp Pulse Resp B/P (MAP) Pulse Ox O2 Delivery O2 Flow Rate FiO2 05/15/20 11:00 98.6 99 22 142/83 (102) 94 Nasal Cannula 2.0 98.6 Weight Weight [ ] I.O. Intake and Output Intake and Output 05/15/20 07:00 Intake Total 0 ml Output Total 3800 ml Balance -3800 ml Intake Oral 0 ml Output Urine Total 3800 ml Labs Labs Laboratory Tests Test 05/14/20 13:55 05/14/20 17:11 05/15/20 04:00 05/15/20 06:03 Glucose (Fingerstick) 165 mg/dL (70-99) 175 mg/dL (70-99) 192 mg/dL (70-99) Sodium Level 158 mmol/L (136-145) Potassium Level 3.3 mmol/L (3.5-5.1) Chloride Level 119 mmol/L (98-107) Carbon Dioxide Level 29 mmol/L (21-32) Anion Gap 10 (6-14) Blood Urea Nitrogen 42 mg/dL (8-26) Creatinine 1.1 mg/dL (0.7-1.3) Estimated GFR (Cockcroft-Gault) 68.5 Glucose Level 212 mg/dL (70-99) Calcium Level 8.6 mg/dL (8.5-10.1) Phosphorus Level 4.0 mg/dL (2.6-4.7) Magnesium Level 2.3 mg/dL (1.8-2.4) Test 05/15/20 10:43 Glucose (Fingerstick) 197 mg/dL (70-99) Micro Micro Microbiology 05/10/20 Blood Culture - Final, Complete 05/04/20 Urine Culture - Final, Complete 05/04/20 Antimicrobic Susceptibility - Final, Complete Review of Systems Constitutional: yes: other (CONFUSED) Physical Exam General Appearance: no apparent distress Skin: warm Respiratory: decreased breath sounds Heart: S1S2 Abdomen: soft Genitourinary: bladder flat, schaffer catheter Extremities: edema Assessment Assessment IMP AUGUSTINE-RESOLVING HYPERNATREMIA HYPOKALEMIA EDEMA SEPSIS ACUTE HYPOXIC RESP FAILURE RHABDOMYOLYSIS-IMPROVING FAILED SWALLOW STUDY-DYSPHAGIA DECONDITIONING MET ENCEPHALOPATHY PLAN CONT SCHEDULED IV LASIX NEEDS MORE NEG FLUID BALANCE REPLACE K PPN ANTIBIOTICS CT ABD/PELVIS PER ID LABS IN AM WILL FOLLOW DAVID STOVALL MD May 15, 2020 12:32
[2020-05-15] MEDS: POTASSIUM CHLORIDE 10MEQ 100 ML IV SCH ×2 (13:04→14:09)
--- NOTE | 2020-05-15 14:20 | NUR ---
Per Dr. Carroll "Pt not ready to have Duggan Catheter removed."
[2020-05-15] MEDS ORDERED: ACETAMINOPHEN 650 MG SUPP.RECT. PR PRN (14:30)
--- NOTE | 2020-05-15 14:30 | NUR ---
Dr. Carroll notified of patient temperature of 102.1 per Axillary. Orders received to do blood cultures x2, Tylenol 650mg per rectal, and to notify Dr. Pang of the fever. Dr. Pang paged and orders received to start Daptomycin 6mg/kg daily.
--- NOTE | 2020-05-15 14:32 | NUR ---
CINTIA following for discharge planning. Spoke with RN and reviewed chart. Pt spiked a fever. Blood cultures pending. Pt not medically ready for discharge. CINTIA coordinated care with Leanna from [facility] who stated pt's insurance authorization request remains pending from 05/13. CINTIA called [facility] ([phone]) and spoke with Bridget who stated the request is currently under review with the medical equipment sales. Pt added to weekend discharge list for possible discharge pending insurance and results of cultures. CINTIA following. Addendum: 05/18/20 at 1223 by DANIEL CHAMBERLAIN Pt transferred to ICU
[2020-05-15 15:00] VITALS: BP 135/72
[2020-05-15] MEDS: NORMAL SALINE IV SCH (16:18)
[2020-05-15] MEDS: DAPTOMYCIN IV SCH (16:18)
[2020-05-15 19:00] VITALS: BP 151/77
[2020-05-15 23:06] VITALS: BP 151/80
--- NOTE | 2020-05-16 02:15 | PN ---
DATE: 05/15/2020 LOCATION: He is in room 674. SUBJECTIVE: The patient is awake and alert. When I saw this morning, a little bit more confused than the day before. He failed the swallowing test again yesterday and is still wanting stuffs to eat. Nursing has no specific concerns. OBJECTIVE: VITAL SIGNS: Stable. He is afebrile. CHEST: Clear. HEART: Regular. ABDOMEN: Benign. LABORATORY DATA: Sodium is elevated to 158, potassium 3.3, creatinine 1.1, BUN 42. Renal is following along for adjustments of fluids, diuresis, etc. He remains very deconditioned, difficulties even moving around in the bed. Since I saw him this morning and I have received calls from nursing that he spiked temperature to 102 again. Repeat blood cultures have been done and suggested they notify ID. He does have a left proximal ureteral stone on his CT yesterday and may need Urology evaluation. Once this is over as I fully expect we will see positive blood cultures with pansensitive Escherichia coli again, likely has a renal pelvis ____. IMPRESSION: 1. Sepsis with Escherichia coli, urinary tract source with recurrent fevers as discussed above. 2. Diabetes. 3. Status post acute respiratory failure with mechanical ventilation. 4. Worsening confusion, likely due to recurrent bacteremia. PLAN: Continue antibiotics. Follow ID's lead. Await recurrent blood cultures. Keep repeating swallow tests until he is able to swallow and again may need transfer to somewhere where Urology is available depending on ID's thoughts. BUSTER LEMONS MD DR: JZAIEL/helene JOB#: [id number] / [id number]
[2020-05-16] MEDS: AMINO AC 3%/ELECTROLYTE/GLYCER 1,000 ML IV SCH ×2 (02:18→14:21)
[2020-05-16 03:07] VITALS: BP 166/97
[2020-05-16 05:00] LABS: CALCIUM 9.1 mg/dL (8.5-10.1); CREATININE 1.1 mg/dL (0.7-1.3); GFR 68.5; MAGNESIUM 2.5 mg/dL (1.8-2.4); POTASSIUM 3.8 mmol/L (3.5-5.1)
[2020-05-16] MEDS: INSULIN LISPRO 300 UNITS/3 ML VIAL. SQ SCH ×4 (05:26→18:00)
[2020-05-16] MEDS: HEPARIN for SUB-Q USE 5,000 UNIT/ML VIAL. SQ SCH ×3 (05:52→23:46)
--- NOTE | 2020-05-16 06:37 | PDOC ---
Infectious Disease Note Subjective Subjective Doing ok. Throat dry Fever better No Pain/N/V/D/SOA ROS ROS o/w neg Vital Sign Vital Signs Vital Signs Date Time Temp Pulse Resp B/P (MAP) Pulse Ox O2 Delivery O2 Flow Rate FiO2 05/16/20 03:07 98.4 91 20 166/97 (120) 95 Room Air 98.4 05/15/20 20:00 2.0 Physical Exam PHYSICAL EXAM GENERAL awake, comfortable HEENT: Both pupils are round and reacting. No conjunctival lesion. ? Thrush NECK: Supple, no JVP, no lymphadenopathy. LUNGS: Decreased breath sounds. HEART: S1, S2 regular. No gallop or murmur. ABDOMEN: Soft, nontender, no organomegaly.Obese. No CVA tenderness : Duggan in place EXTREMITIES: No edema or cyanosis. SKIN: Unremarkable. NEUROLOGIC: A and O x 3 , no focal deficit Labs Lab Laboratory Tests Test 05/15/20 10:43 05/15/20 16:40 05/16/20 00:13 05/16/20 03:30 Glucose (Fingerstick) 197 mg/dL (70-99) 144 mg/dL (70-99) 131 mg/dL (70-99) Sodium Level 155 mmol/L (136-145) Potassium Level 3.8 mmol/L (3.5-5.1) Chloride Level 119 mmol/L (98-107) Carbon Dioxide Level 27 mmol/L (21-32) Anion Gap 9 (6-14) Blood Urea Nitrogen 51 mg/dL (8-26) Creatinine 1.1 mg/dL (0.7-1.3) Estimated GFR (Cockcroft-Gault) 68.5 Glucose Level 126 mg/dL (70-99) Calcium Level 9.1 mg/dL (8.5-10.1) Magnesium Level 2.5 mg/dL (1.8-2.4) Test 05/16/20 05:24 Glucose (Fingerstick) 141 mg/dL (70-99) Micro Microbiology 05/10/20 Blood Culture - Final, Complete 05/04/20 Urine Culture - Final, Complete 05/04/20 Antimicrobic Susceptibility - Final, Complete Objective Assessment IMPRESSION: Fever ? Thrush 1. Encephalopathy - better. 2. Leukopenia, from sepsis , now leukocytosis 3. Respiratory failure. 4. Hyponatremia. 5. Acute kidney injury. 6. Circulatory failure. 7. Obesity. 8. COVID neg 9 G neg selvin sepsis/ E coli 10 UTI with sepsis 7 mm ureteral stone Plan Plan of Care CBC/CPK today with previous elevation Micafungin for a few dose - ? Thrush and NPO ct abd and pelvis noted 05/14 Continue supportive care. Hydration. F/u blood cults 05/15 F/u labs - in am Ureteral stone is probably the reason why recurrence on E. coli bacteremia and fever Needs Urology - consider transfer Daptomycin started 05/15 cont NICK Shankar MD May 16, 2020 06:36
[2020-05-16 07:00] VITALS: BP 151/69
[2020-05-16] MEDS: MICAFUNGIN 100 MG in IV DEXTROSE 5% 100ML 100 ML IV SCH (08:49)
[2020-05-16] MEDS: PANTOPRAZOLE IV PUSH 40 MG VIAL. IVP SCH (08:49)
[2020-05-16] MEDS: FUROSEMIDE 40 MG/4 ML VIAL. IVP SCH ×2 (08:49→15:40)
[2020-05-16] MEDS: cefTRIAXone IV Push 2 GM VIAL. IVP SCH (08:50)
[2020-05-16] MEDS: INSULIN GLARGINE SYRINGE. SQ SCH (08:52)
[2020-05-16 10:14] LABS: BASO # 0.1 x10^3/uL (0.0-0.2); BASO % 1 % (0-3); EOS # 0.1 x10^3/uL (0.0-0.7); EOS % 2 % (0-3); HEMATOCRIT 36.3 % (39.0-53.0); HEMOGLOBIN 11.6 g/dL (13.0-17.5); LYMPH # 1.4 x10^3/uL (1.0-4.8); LYMPH % 16 % (24-48); MEAN CORPUSCULAR HEMOGLOBIN 28 pg (25-35); MEAN CORPUSCULAR HGB CONC 32 g/dL (31-37); MEAN CORPUSCULAR VOLUME 88 fL (79-100); MONO # 0.7 x10^3/uL (0.0-1.1); MONO % 8 % (0-9); NEUT # 6.5 x10^3/uL (1.8-7.7); NEUT % 74 % (31-73); PLATELET COUNT 432 x10^3/uL (140-400); RED BLOOD COUNT 4.11 x10^6/uL (4.30-5.70); RED CELL DISTRIBUTION WIDTH 20.2 % (11.5-14.5); WHITE BLOOD COUNT 8.9 x10^3/uL (4.0-11.0)
[2020-05-16 11:00] VITALS: BP 161/33
--- NOTE | 2020-05-16 13:11 | PDOC ---
PROGRESS NOTES Date of Service DATE: 05/16/20 TIME: 13:08 Subjective Subjective SEEN IN FOLLOW UP OF ANASARCA AND HYPERNATREMIA Objective Objective Vital Signs Date Time Temp Pulse Resp B/P (MAP) Pulse Ox O2 Delivery O2 Flow Rate FiO2 05/16/20 11:00 97.7 102 19 161/33 (75) 95 Room Air 97.7 05/15/20 20:00 2.0 Intake and Output 05/16/20 07:00 Intake Total 330 ml Output Total 3450 ml Balance -3120 ml IV Total 330 ml Output Urine Total 3450 ml Physical Exam Abdomen: Normal bowel sounds, Soft, No tenderness, No hepatosplenomegaly, No m asses Heart: Regular rate, Normal S1, Normal S2, No murmurs, Gallops Extremities: Other (4+ EDEMA) General: Other (SOMNULENT) Lungs: Clear to auscultation Diagnosis Other EDEMA AND HYPERNATREMIA Assessment Assessment Problems Medical Problems: (1) Acute kidney failure Status: Acute (2) Altered mental status Status: Acute (3) Hyperkalemia Status: Acute (4) Hyperuricemia Status: Acute (5) Lymphopenia Status: Acute (6) Respiratory failure with hypoxia Status: Acute Plan Plan of Care SERUM SODIUM IS BETTER. CONT PPN AND DIURESIS. HE STILL HAS SIGNIFICANT EDEMA Comment Review of Relevant I have reviewed the following items elina (where applicable) has been applied. Labs Laboratory Tests Test 05/14/20 13:55 05/14/20 17:11 05/15/20 04:00 05/15/20 06:03 Glucose (Fingerstick) 165 mg/dL (70-99) 175 mg/dL (70-99) 192 mg/dL (70-99) Sodium Level 158 mmol/L (136-145) Potassium Level 3.3 mmol/L (3.5-5.1) Chloride Level 119 mmol/L (98-107) Carbon Dioxide Level 29 mmol/L (21-32) Anion Gap 10 (6-14) Blood Urea Nitrogen 42 mg/dL (8-26) Creatinine 1.1 mg/dL (0.7-1.3) Estimated GFR (Cockcroft-Gault) 68.5 Glucose Level 212 mg/dL (70-99) Calcium Level 8.6 mg/dL (8.5-10.1) Phosphorus Level 4.0 mg/dL (2.6-4.7) Magnesium Level 2.3 mg/dL (1.8-2.4) Test 05/15/20 10:43 05/15/20 16:40 05/16/20 00:13 05/16/20 03:30 Glucose (Fingerstick) 197 mg/dL (70-99) 144 mg/dL (70-99) 131 mg/dL (70-99) Sodium Level 155 mmol/L (136-145) Potassium Level 3.8 mmol/L (3.5-5.1) Chloride Level 119 mmol/L (98-107) Carbon Dioxide Level 27 mmol/L (21-32) Anion Gap 9 (6-14) Blood Urea Nitrogen 51 mg/dL (8-26) Creatinine 1.1 mg/dL (0.7-1.3) Estimated GFR (Cockcroft-Gault) 68.5 Glucose Level 126 mg/dL (70-99) Calcium Level 9.1 mg/dL (8.5-10.1) Magnesium Level 2.5 mg/dL (1.8-2.4) Creatine Kinase 67 U/L (39-308) Test 05/16/20 05:24 05/16/20 09:50 05/16/20 12:14 Glucose (Fingerstick) 141 mg/dL (70-99) 124 mg/dL (70-99) White Blood Count 8.9 x10^3/uL (4.0-11.0) Red Blood Count 4.11 x10^6/uL (4.30-5.70) Hemoglobin 11.6 g/dL (13.0-17.5) Hematocrit 36.3 % (39.0-53.0) Mean Corpuscular Volume 88 fL (79-100) Mean Corpuscular Hemoglobin 28 pg (25-35) Mean Corpuscular Hemoglobin Concent 32 g/dL (31-37) Red Cell Distribution Width 20.2 % (11.5-14.5) Platelet Count 432 x10^3/uL (140-400) Neutrophils (%) (Auto) 74 % (31-73) Lymphocytes (%) (Auto) 16 % (24-48) Monocytes (%) (Auto) 8 % (0-9) Eosinophils (%) (Auto) 2 % (0-3) Basophils (%) (Auto) 1 % (0-3) Neutrophils # (Auto) 6.5 x10^3/uL (1.8-7.7) Lymphocytes # (Auto) 1.4 x10^3/uL (1.0-4.8) Monocytes # (Auto) 0.7 x10^3/uL (0.0-1.1) Eosinophils # (Auto) 0.1 x10^3/uL (0.0-0.7) Basophils # (Auto) 0.1 x10^3/uL (0.0-0.2) Laboratory Tests Test 05/15/20 16:40 05/16/20 00:13 05/16/20 03:30 05/16/20 05:24 Glucose (Fingerstick) 144 mg/dL (70-99) 131 mg/dL (70-99) 141 mg/dL (70-99) Sodium Level 155 mmol/L (136-145) Potassium Level 3.8 mmol/L (3.5-5.1) Chloride Level 119 mmol/L (98-107) Carbon Dioxide Level 27 mmol/L (21-32) Anion Gap 9 (6-14) Blood Urea Nitrogen 51 mg/dL (8-26) Creatinine 1.1 mg/dL (0.7-1.3) Estimated GFR (Cockcroft-Gault) 68.5 Glucose Level 126 mg/dL (70-99) Calcium Level 9.1 mg/dL (8.5-10.1) Magnesium Level 2.5 mg/dL (1.8-2.4) Creatine Kinase 67 U/L (39-308) Test 05/16/20 09:50 05/16/20 12:14 White Blood Count 8.9 x10^3/uL (4.0-11.0) Red Blood Count 4.11 x10^6/uL (4.30-5.70) Hemoglobin 11.6 g/dL (13.0-17.5) Hematocrit 36.3 % (39.0-53.0) Mean Corpuscular Volume 88 fL (79-100) Mean Corpuscular Hemoglobin 28 pg (25-35) Mean Corpuscular Hemoglobin Concent 32 g/dL (31-37) Red Cell Distribution Width 20.2 % (11.5-14.5) Platelet Count 432 x10^3/uL (140-400) Neutrophils (%) (Auto) 74 % (31-73) Lymphocytes (%) (Auto) 16 % (24-48) Monocytes (%) (Auto) 8 % (0-9) Eosinophils (%) (Auto) 2 % (0-3) Basophils (%) (Auto) 1 % (0-3) Neutrophils # (Auto) 6.5 x10^3/uL (1.8-7.7) Lymphocytes # (Auto) 1.4 x10^3/uL (1.0-4.8) Monocytes # (Auto) 0.7 x10^3/uL (0.0-1.1) Eosinophils # (Auto) 0.1 x10^3/uL (0.0-0.7) Basophils # (Auto) 0.1 x10^3/uL (0.0-0.2) Glucose (Fingerstick) 124 mg/dL (70-99) Microbiology 05/10/20 Blood Culture - Final, Complete 05/04/20 Urine Culture - Final, Complete 05/04/20 Antimicrobic Susceptibility - Final, Complete Medications Current Medications Sodium Chloride 1,000 ml @ 1,000 mls/hr 1X ONCE IV Last administered on 05/04/20at 11:32; Start 05/04/20 at 11:45; Stop 05/04/20 at 12:44; Status DC Ceftriaxone Sodium (Rocephin) 1 gm 1X ONCE IVP Last administered on 05/04/20at 11:33; Start 05/04/20 at 11:45; Stop 05/04/20 at 11:46; Status DC Norepinephrine Bitartrate 8 mg/ Dextrose 258 ml @ 35.314 mls/ hr CONT PRN IV PER PROTOCOL Last administered on 05/04/20at 17:00; Start 05/04/20 at 17:00; Stop 05/04/20 at 18:09; Status DC Naloxone HCl (Narcan) 0.4 mg 1X ONCE IV Last administered on 05/04/20at 17:00; Start 05/04/20 at 17:00; Stop 05/04/20 at 17:01; Status DC Propofol 0 ml @ As Directed STK-MED ONCE IV ; Start 05/04/20 at 17:20; Stop 05/04/20 at 17:20; Status DC Succinylcholine Chloride (Anectine) 200 mg STK-MED ONCE .ROUTE ; Start 05/04/20 at 17:20; Stop 05/04/20 at 17:20; Status DC Rocuronium [place] (Zemuron) 50 mg STK-MED ONCE .ROUTE ; Start 05/04/20 at 17:20; Stop 05/04/20 at 17:21; Status DC Etomidate (Amidate) 20 mg STK-MED ONCE IV ; Start 05/04/20 at 17:20; Stop 05/04/20 at 17:21; Status DC Sodium Bicarbonate 150 meq/Dextrose 1,150 ml @ 150 mls/hr Q7H40M IV Last administered on 05/06/20at 07:44; Start 05/04/20 at 18:30; Stop 05/06/20 at 16:49; Status DC Fentanyl Citrate 30 ml @ 0 mls/hr CONT PRN IV SEE PROTOCOL; Start 05/04/20 at 18:15; Stop 05/11/20 at 17:42; Status DC Midazolam HCl 100 ml @ 0 mls/hr CONT PRN IV SEE PROTOCOL Last administered on 05/06/20at 19:09; Start 05/04/20 at 18:15; Stop 05/11/20 at 17:42; Status DC Norepinephrine Bitartrate 32 mg/ Dextrose 282 ml @ 9.65 mls/hr CONT PRN IV PER PROTOCOL Last administered on 05/06/20at 14:08; Start 05/04/20 at 18:15; Stop 05/11/20 at 17:42; Status DC Piperacillin Sod/ Tazobactam Sod 2.25 gm/Sodium Chloride 50 ml @ 100 mls/hr Q6HRS IV Last administered on 05/06/20at 06:36; Start 05/05/20 at 08:00; Stop 05/06/20 at 08:39; Status DC Daptomycin 700 mg/ Sodium Chloride 50 ml @ 100 mls/hr Q48H IV Last administered on 05/05/20at 08:42; Start 05/05/20 at 09:00; Stop 05/06/20 at 09:09; Status DC Insulin Glargine (Lantus Syringe) 20 unit DAILY10 SQ Last administered on 05/05/20at 10:03; Start 05/05/20 at 10:00; Stop 05/06/20 at 09:08; Status DC Insulin Human Lispro (HumaLOG) 0-7 UNITS Q6HRS SQ Last administered on 05/14/20at 09:23; Start 05/05/20 at 12:00 Dextrose (Dextrose 50%-Water Syringe) 12.5 gm PRN Q15MIN PRN IV SEE COMMENTS La st administered on 05/12/20at 00:24; Start 05/05/20 at 09:15 Heparin Sodium (Porcine) (Heparin Sodium) 5,000 unit Q8HRS SQ Last administered on 05/16/20at 05:52; Start 05/05/20 at 14:00 Famotidine (Pepcid Vial) 20 mg QHS IVP Last administered on 05/08/20at 21:36; Start 05/05/20 at 21:00; Stop 05/09/20 at 10:18; Status DC Phenylephrine HCl (PHENYLEPHRINE in 0.9% NACL PF) 1 mg STK-MED ONCE IV ; Start 05/04/20 at 18:00; Stop 05/05/20 at 12:11; Status DC Etomidate (Amidate) 20 mg STK-MED ONCE IV ; Start 05/04/20 at 18:00; Stop 05/05/20 at 12:28; Status DC Rocuronium [place] (Zemuron) 50 mg STK-MED ONCE .ROUTE ; Start 05/04/20 at 18:00; Stop 05/05/20 at 12:28; Status DC Succinylcholine Chloride (Anectine) 200 mg STK-MED ONCE .ROUTE ; Start 05/04/20 at 18:00; Stop 05/05/20 at 12:28; Status DC Propofol (Diprivan) 1,000 mg STK-MED ONCE IV ; Start 05/04/20 at 18:00; Stop 05/05/20 at 12:28; Status DC Piperacillin Sod/ Tazobactam Sod 3.375 gm/Sodium Chloride 50 ml @ 100 mls/hr Q6HRS IV Last administered on 05/11/20at 05:31; Start 05/06/20 at 12:00; Stop 05/11/20 at 10:49; Status DC Insulin Glargine (Lantus Syringe) 40 unit DAILY10 SQ Last administered on at 09:37; Start 05/06/20 at 10:00; Stop 05/07/20 at 07:18; Status DC Fentanyl Citrate (Fentanyl 2ml Vial) 100 mcg STK-MED ONCE .ROUTE ; Start 05/06/20 at 11:35; Stop 05/06/20 at 11:35; Status DC Fentanyl Citrate (Fentanyl 2ml Vial) 50 mcg PRN Q2HR PRN IVP PAIN Last administered on 05/15/20at 10:48; Start 05/06/20 at 10:45 Insulin Glargine (Lantus Syringe) 60 unit DAILY SQ Last administered on 05/08/20at 09:01; Start 05/07/20 at 09:00; Stop 05/08/20 at 09:02; Status DC Fentanyl Citrate (Fentanyl 2ml Vial) 100 mcg STK-MED ONCE .ROUTE ; Start 05/06/20 at 11:40; Stop 05/07/20 at 08:51; Status DC Propofol 100 ml @ 5.247 mls/ hr CONT PRN IV PER PROTOCOL Last administered on 05/10/20at 06:17; Start 05/07/20 at 09:30; Stop 05/11/20 at 17:42; Status DC Insulin Glargine (Lantus Syringe) 90 unit DAILY SQ Last administered on 05/09/20at 08:22; Start 05/09/20 at 09:00; Stop 05/09/20 at 09:46; Status DC Insulin Glargine (Lantus Syringe) 30 unit 1X ONCE SQ Last administered on 05/08/20at 09:28; Start 05/08/20 at 09:30; Stop 05/08/20 at 09:31; Status DC Furosemide (Lasix) 40 mg 1X ONCE IVP Last administered on 05/08/20at 09:32; Start 05/08/20 at 10:00; Stop 05/08/20 at 10:01; Status DC Insulin Glargine (Lantus Syringe) 100 unit DAILY SQ ; Start 05/10/20 at 09:00; Stop 05/10/20 at 08:11; Status DC Pantoprazole Sodium (PROTONIX VIAL for IV PUSH) 40 mg DAILYAC IVP Last administered on 05/16/20at 08:49; Start 05/10/20 at 07:30 Furosemide (Lasix) 40 mg 1X ONCE IVP Last administered on 05/09/20at 11:09; Start 05/09/20 at 11:00; Stop 05/09/20 at 11:02; Status DC Hydralazine HCl (Apresoline Inj) 10 mg PRN Q4HRS PRN IVP ELEVATED BP, SEE COMMENTS Last administered on 05/09/20at 11:10; Start 05/09/20 at 11:15 Insulin Glargine (Lantus Syringe) 110 unit DAILY SQ Last administered on 05/16/20at 08:52; Start 05/10/20 at 09:00 Dexmedetomidine HCl 400 mcg/ Sodium Chloride 100 ml @ 0 mls/hr CONT PRN IV PER PROTOCOL Last administered on 05/11/20at 11:37; Start 05/10/20 at 10:30; Stop 05/11/20 at 17:42; Status DC Sodium Chloride 500 ml @ 500 mls/hr 1X PRN PRN IV SEE COMMENTS; Start 05/10/20 at 10:30; Stop 05/11/20 at 17:42; Status DC Atropine Sulfate (ATROPINE 0.5mg SYRINGE) 0.5 mg PRN Q5MIN PRN IV SEE COMMENTS; Start 05/10/20 at 10:30; Stop 05/11/20 at 17:42; Status DC Furosemide (Lasix) 40 mg 1X ONCE IVP Last administered on 05/10/20at 11:27; Start 05/10/20 at 11:00; Stop 05/10/20 at 11:01; Status DC Daptomycin 690 mg/ Sodium Chloride 50 ml @ 100 mls/hr Q24H IV Last administered on 05/10/20at 20:26; Start 05/10/20 at 20:00; Stop 05/11/20 at 10:49; Status DC Acetaminophen (Tylenol) 650 mg PRN Q6HRS PRN PEG MILD PAIN / TEMP > 100.3'F Last administered on 05/10/20at 20:20; Start 05/10/20 at 20:00 Meropenem 1 gm/ Sodium Chloride 100 ml @ 200 mls/hr Q8HRS IV Last administered on 05/15/20at 05:07; Start 05/11/20 at 14:00; Stop 05/15/20 at 08:45; Status DC Dextrose 1,000 ml @ 50 mls/hr Q20H IV Last administered on 05/12/20 19:34; Start 05/11/20 at 18:45; Stop 05/13/20 at 11:03; Status DC Furosemide (Lasix) 60 mg 1X ONCE IVP Last administered on 05/12/20 10:35; Start 05/12/20 at 10:30; Stop 05/12/20 at 10:31; Status DC Potassium Chloride/Water 100 ml @ 100 mls/hr Q1H IV Last administered on 05/04 at 15:56; Start 05/13/20 at 12:00; Stop 05/13/20 at 13:59; Status DC Amino Acids/ Glycerin/ Electrolytes 1,000 ml @ 80 mls/hr [id number] IV Last administered on 05/16/20 02:18; Start 05/13/20 at 11:15 Furosemide (Lasix) 80 mg [id number] IVP Last administered on 05/16/20 08:49; Start 05/13/20 at 11:15 Ceftriaxone Sodium (Rocephin) 2 gm Q24H IVP Last administered on 05/16/20 08:5 0; Start 05/15/20 at 09:00 Potassium Chloride/Water 100 ml @ 100 mls/hr Q1H IV Last administered on 05/15/20 14:09; Start 05/15/20 at 13:00; Stop 05/15/20 at 14:59; Status DC Acetaminophen (Tylenol Supp) 650 mg PRN Q6HRS PRN PA MILD PAIN / TEMP > 100.3'F Last administered on 05/15/20at 14:38; Start 05/15/20 at 14:30 Daptomycin 700 mg/ Sodium Chloride 50 ml @ 100 mls/hr Q24H IV Last administered on 05/15/20 16:18; Start 05/15/20 at 15:30 Micafungin Sodium 100 mg/Dextrose 100 ml @ 100 mls/hr Q24H IV Last administered on 05/16/20 08:49; Start 05/16/20 at 08:00 Active Scripts Active [Fluconazole] 100 MG Tablet 200 Mg PO DAILY 10 Days Amox Tr-K Clv 875-125 Mg Tab (Amoxicillin/Potassium Clav) 1 Each Tablet 1 Tab PO BID 10 Days Reported Hydrocodone-Acetamin 5-325 mg (Hydrocodone/Acetaminophen) 1 Each Tablet 1 Each PO PRN Q6HRS PRN Diclofenac Sodium 75 Mg Tablet. 1 Tab PO BID Amlodipine Besylate 5 Mg Tablet 5 Mg PO DAILY Furosemide 40 Mg Tablet 1 Tab PO DAILY Lisinopril 30 Mg Tablet 1 Tab PO DAILY Actos (Pioglitazone Hcl) 30 Mg Tablet 1 Tab PO DAILY Vitals/I & O Vital Sign - Last 24 Hours 05/15/20 05/15/20 05/15/20 05/15/20 14:18 15:00 19:00 20:00 Temp 102.1 102.3 96.7 102.1 102.3 96.7 Pulse 132 99 Resp 26 20 B/P (MAP) 135/72 (93) 151/77 (101) Pulse Ox 93 100 O2 Delivery Nasal Cannula Nasal Cannula Nasal Cannula O2 Flow Rate 2.0 2.0 05/15/20 05/16/20 05/16/20 05/16/20 23:06 03:07 07:00 07:52 Temp 97.8 98.4 97.7 97.8 98.4 97.7 Pulse 95 91 96 Resp 20 20 19 B/P (MAP) 151/80 (103) 166/97 (120) 151/69 (96) Pulse Ox 93 95 95 O2 Delivery Room Air Room Air Room Air Room Air 05/16/20 11:00 Temp 97.7 97.7 Pulse 102 Resp 19 B/P (MAP) 161/33 (75) Pulse Ox 95 O2 Delivery Room Air Intake and Output 05/15/20 05/15/20 05/16/20 15:00 23:00 07:00 Intake Total 330 ml Output Total 2500 ml 950 ml Balance -2170 ml -950 ml Justifications for Admission Other Justification FRANCIS GUERRERO MD May 16, 2020 13:11
--- NOTE | 2020-05-16 14:20 | PN ---
DATE: 05/16/2020 DAILY PROGRESS NOTE LOCATION: He is in room 674. SUBJECTIVE: The patient is awake and alert, remains mildly confused compared to a couple of days ago. He has continued to fail swallowing test on a daily basis, still was wanting something to eat and drink. He did spike another fever to 102.3 yesterday and repeat blood cultures were drawn. ID's were the same. OBJECTIVE: VITAL SIGNS: Stable. T-max 102.3. CHEST: Clear. HEART: Regular. ABDOMEN: Benign. LABORATORY DATA: Morning labs include sodium 155, BUN 51, creatinine 1.1. Sugars have been decent. Repeat CBC is pending and is 10:00 a.m. on Monday. Again, the 7 mm stone in the proximal ureter on CT scanning yesterday noted. IMPRESSION: 1. Sepsis with Escherichia coli urinary tract source with recurrent fevers 2. Diabetes. 3. Status post acute respiratory failure with mechanical ventilation. 4. Ongoing confusion, likely worse. Feeling being likely due to recurrent bacteremia. PLAN: Await blood cultures from yesterday. Follow ID's lead on antibiotics. Once again, may need some sort of urological evaluation for the stone as that would be the most likely cause of his recurrent problems. BUSTER LEMONS MD DR: JAZIEL/helene JOB#: [id number] / [id number]
[2020-05-16 15:00] VITALS: BP 130/67
[2020-05-16] MEDS: DAPTOMYCIN IV SCH (15:40)
[2020-05-16] MEDS: NORMAL SALINE IV SCH (15:40)
[2020-05-17] VITALS (26 sets, daily range): BP systolic 76–152; BP diastolic 36–77
--- NOTE | 2020-05-17 04:30 | NUR ---
Found pt breathing shallow breaths almost (agonal like) breathing, not responding... 85% RA, and shaking uncontrollable. FSBS 55, RR called. Dextrose 12.5 gm give(result 153 post dextrose), ST on tele 120, vitals on non rebreather 138/77, HR 120,m temp 100.3 axillary RR 20, 95%. RR team placed orders for lactic,and blood cultures. CRUTCHER HELPER placed pt on VM 50%FIO2.............................................................................. Neurologist notified and orders placed for CT of head. Pt more alert and eyes wide open and shaking head yes in response to questions.
[2020-05-17 05:06] LABS: ALBUMIN 1.5 g/dL (3.4-5.0); ALBUMIN/GLOBULIN RATIO 0.2 (1.0-1.7); CALCIUM 9.1 mg/dL (8.5-10.1); CREATININE 1.7 mg/dL (0.7-1.3); GFR 41.5; POTASSIUM 4.1 mmol/L (3.5-5.1); TOTAL BILIRUBIN 1.2 mg/dL (0.2-1.0); TOTAL PROTEIN 7.8 g/dL (6.4-8.2)
--- NOTE | 2020-05-17 05:10 | NUR ---
Rapid Response Note: Repaid response called by patient's RN for altered mental status and change in respiratory status. RN states patient was found at 0330 with shallow respirations, low oxygen saturation and not arousable. Upon arrival, patient with O2 at 100% NRB with eyes closed; when name called patient does open his eyes states "no" when asked if having any pain and again closes his eyes; patient does not follow any commands nor speak any other words--RN states this is patient's norm. Patient's torso and bilat upper extremitatis shacking but does not look like seizure behavior temperature 100.2 Ax, repeated 20 min later it had increased to 100.5 Ax . Heart tones S1S2, RRR, ST per tele monitor, O2 saturation now mid to upper 90's, lung sounds clear and decreased anteriorly to auscultation. RN stated patient FSBS war 55 at 0431 and he was given 1/2 amp D50, recheck FSBS 155. Lactic drawn--results pending and blood cultures x1 drawn, Paged Dr Mendoza, of above, orders received for CT Head now and notify PCP if no acute findings. Patient and RN notified; patient remains on unit. Addendum: 05/17/20 at 0737 by AME SNEED RN Amended: Links added.
[2020-05-17 05:19] LABS: BASO % 1 % (0-3); EOS % 1 % (0-3); HEMATOCRIT 37.2 % (39.0-53.0); HEMOGLOBIN 11.8 g/dL (13.0-17.5); LYMPH % 15 % (24-48); MEAN CORPUSCULAR HEMOGLOBIN 28 pg (25-35); MEAN CORPUSCULAR HGB CONC 32 g/dL (31-37); MEAN CORPUSCULAR VOLUME 89 fL (79-100); MONO # 0.7 x10^3/uL (0.0-1.1); MONO % 10 % (0-9); NEUT # 5.1 x10^3/uL (1.8-7.7); NEUT % 74 % (31-73); PLATELET COUNT 427 x10^3/uL (140-400); RED BLOOD COUNT 4.17 x10^6/uL (4.30-5.70); RED CELL DISTRIBUTION WIDTH 20.4 % (11.5-14.5); WHITE BLOOD COUNT 6.9 x10^3/uL (4.0-11.0)
[2020-05-17] MEDS: INSULIN LISPRO 300 UNITS/3 ML VIAL. SQ SCH ×2 (06:00)
[2020-05-17] MEDS ORDERED: IV 1/2 NORMAL SALINE 1,000 ML IV ONE (06:30)
[2020-05-17] MEDS: HEPARIN for SUB-Q USE 5,000 UNIT/ML VIAL. SQ SCH ×3 (06:41→21:39)
[2020-05-17] MEDS ORDERED: PIP/TAZO PER PHARMACY MC PRN (07:30)
--- NOTE | 2020-05-17 07:35 | PDOC ---
Infectious Disease Note Subjective Subjective Slow to respond ? C/o pain in abd No N/V/SOA ROS ROS Difficult to obtain Vital Sign Vital Signs Vital Signs Date Time Temp Pulse Resp B/P (MAP) Pulse Ox O2 Delivery O2 Flow Rate FiO2 05/17/20 05:02 152/47 (82) 95 Venturi Mask 15.0 05/17/20 04:30 100.3 120 20 100.3 Physical Exam PHYSICAL EXAM GENERAL awake, slow to respond HEENT: Both pupils are round and reacting. No conjunctival lesion. ? Thrush NECK: Supple, no JVP, no lymphadenopathy. LUNGS: Decreased breath sounds. HEART: S1, S2 regular. No gallop or murmur. ABDOMEN: Soft, ? mild tender, no organomegaly.Obese. No CVA tenderness : Duggan in place EXTREMITIES: No edema or cyanosis. SKIN: Unremarkable. NEUROLOGIC: Alert, no focal deficit Labs Lab Laboratory Tests Test 05/16/20 09:50 05/16/20 12:14 05/16/20 18:08 05/16/20 23:41 White Blood Count 8.9 x10^3/uL (4.0-11.0) Red Blood Count 4.11 x10^6/uL (4.30-5.70) Hemoglobin 11.6 g/dL (13.0-17.5) Hematocrit 36.3 % (39.0-53.0) Mean Corpuscular Volume 88 fL (79-100) Mean Corpuscular Hemoglobin 28 pg (25-35) Mean Corpuscular Hemoglobin Concent 32 g/dL (31-37) Red Cell Distribution Width 20.2 % (11.5-14.5) Platelet Count 432 x10^3/uL (140-400) Neutrophils (%) (Auto) 74 % (31-73) Lymphocytes (%) (Auto) 16 % (24-48) Monocytes (%) (Auto) 8 % (0-9) Eosinophils (%) (Auto) 2 % (0-3) Basophils (%) (Auto) 1 % (0-3) Neutrophils # (Auto) 6.5 x10^3/uL (1.8-7.7) Lymphocytes # (Auto) 1.4 x10^3/uL (1.0-4.8) Monocytes # (Auto) 0.7 x10^3/uL (0.0-1.1) Eosinophils # (Auto) 0.1 x10^3/uL (0.0-0.7) Basophils # (Auto) 0.1 x10^3/uL (0.0-0.2) Glucose (Fingerstick) 124 mg/dL (70-99) 69 mg/dL (70-99) 41 mg/dL (70-99) Test 05/17/20 00:09 05/17/20 03:30 05/17/20 04:00 05/17/20 04:31 Glucose (Fingerstick) 90 mg/dL (70-99) 55 mg/dL (70-99) Sodium Level 160 mmol/L (136-145) Potassium Level 4.1 mmol/L (3.5-5.1) Chloride Level 124 mmol/L (98-107) Carbon Dioxide Level 27 mmol/L (21-32) Anion Gap 9 (6-14) Blood Urea Nitrogen 55 mg/dL (8-26) Creatinine 1.7 mg/dL (0.7-1.3) Estimated GFR (Cockcroft-Gault) 41.5 BUN/Creatinine Ratio 32 (6-20) Glucose Level 95 mg/dL (70-99) Lactic Acid Level 4.8 mmol/L (0.4-2.0) Calcium Level 9.1 mg/dL (8.5-10.1) Total Bilirubin 1.2 mg/dL (0.2-1.0) Aspartate Amino Transf (AST/SGOT) 42 U/L (15-37) Alanine Aminotransferase (ALT/SGPT) 36 U/L (16-63) Alkaline Phosphatase 147 U/L (46-116) Total Protein 7.8 g/dL (6.4-8.2) Albumin 1.5 g/dL (3.4-5.0) Albumin/Globulin Ratio 0.2 (1.0-1.7) White Blood Count 6.9 x10^3/uL (4.0-11.0) Red Blood Count 4.17 x10^6/uL (4.30-5.70) Hemoglobin 11.8 g/dL (13.0-17.5) Hematocrit 37.2 % (39.0-53.0) Mean Corpuscular Volume 89 fL (79-100) Mean Corpuscular Hemoglobin 28 pg (25-35) Mean Corpuscular Hemoglobin Concent 32 g/dL (31-37) Red Cell Distribution Width 20.4 % (11.5-14.5) Platelet Count 427 x10^3/uL (140-400) Neutrophils (%) (Auto) 74 % (31-73) Lymphocytes (%) (Auto) 15 % (24-48) Monocytes (%) (Auto) 10 % (0-9) Eosinophils (%) (Auto) 1 % (0-3) Basophils (%) (Auto) 1 % (0-3) Neutrophils # (Auto) 5.1 x10^3/uL (1.8-7.7) Lymphocytes # (Auto) 1.0 x10^3/uL (1.0-4.8) Monocytes # (Auto) 0.7 x10^3/uL (0.0-1.1) Eosinophils # (Auto) 0.0 x10^3/uL (0.0-0.7) Basophils # (Auto) 0.0 x10^3/uL (0.0-0.2) Test 05/17/20 04:46 05/17/20 06:37 Glucose (Fingerstick) 158 mg/dL (70-99) 88 mg/dL (70-99) Micro Microbiology 05/10/20 Blood Culture - Final, Complete 05/04/20 Urine Culture - Final, Complete 05/04/20 Antimicrobic Susceptibility - Final, Complete Objective Assessment IMPRESSION: Fever ? Thrush 1. Encephalopathy - ? dehydration/Low blood sugar/ ? hypoventalation 2. Leukopenia, from sepsis , now leukocytosis 3. Respiratory failure. 4. Hyponatremia. 5. Acute kidney injury - worse. 6. Circulatory failure. 7. Obesity. 8. COVID neg 9 G neg selvin sepsis/ E coli 10 UTI with sepsis 7 mm ureteral stone Plan Plan of Care electrolytes per primary Ct abd/pel to check status of stone Broaden to zosyn per pharmacy 05/17 Micafungin for a few dose - ? Thrush and NPO 05/16 needs pulm f/u Continue supportive care. Hydration. F/u blood cults 05/15 F/u labs - in am Ureteral stone is probably the reason why recurrence on E. coli bacteremia and fever Needs Urology - consider transfer Daptomycin started 05/15 cont Colleen Robbins/w nursing NICK ARROYO MD May 17, 2020 07:35
--- NOTE | 2020-05-17 08:27 | RAD ---
EXAM: Head CT without contrast. HISTORY: Altered mental status. TECHNIQUE: Computed tomographic images of the head were obtained without contrast. *One or more of the following individualized dose reduction techniques were utilized for this examina tion: 1. Automated exposure control. 2. Adjustment of the mA and/or kV according to patient size. 3. Use of iterative reconstruction technique. COMPARISON: 05/04/2020. FINDINGS: There is no acute or subacute extra-axial or intraparenchymal hemorrhage. There is no mass effect or midline shift. There is no hydrocephalus. There are areas of decreased attenuation within the cerebral white matter, nonspecific and likely rel ated to chronic small vessel disease. The visualized portions of the orbits, paranasal sinuses and mastoid air cells are unremarkable. No s uspicious calvarial lesion is seen. IMPRESSION: 1. No acute intracranial finding. Note is made that MRI is more sensitive for acute infarction. 2. Bilateral cerebral white matter changes, likely due to chronic small vessel disease. Electronically signed by: Argelia Bradford MD (05/17/2020 8:25 AM) [id number]
--- NOTE | 2020-05-17 08:47 | RAD ---
EXAM: CT ABDOMEN/PELVIS WITHOUT CONTRAST. HISTORY: Renal stone, sepsis. TECHNIQUE: Computed tomography of the abdomen and pelvis was performed without intravenous contrast. One or more of the following individualized dose reduction techniques were utilized for this examinat ion: 1. Automated exposure control. 2. Adjustment of the mA and/or kV according to patient size. 3. Use of iterative reconstruction technique. COMPARISON: 05/14/2020. FINDINGS: Lung windows through the visualized portions of the bases reveal moderate atelectasis in th e left greater than right bases. Coronary atherosclerotic calcifications are noted. The left hemidiap hragm is mildly elevated. Bone windows reveal no suspicious lesions. Instrumented posterior fusion ch anges are again noted at T8-9. There our compression deformities at all visualized vertebral levels. There is an open fracture at L1, unchanged since the prior study. There is grade 2 anterolisthesis at L5-S1 from bilateral L5 pars interarticularis defects. There are also chronic fractures of the right superior and inferior pubic rami. Bilateral sacral plasty changes are noted. There are limitations from respiratory motion artifact. The liver, gallbladder, spleen, adrenal gland s and pancreas are unremarkable without contrast. A metallic foreign body projects within the subcuta neous tissues of the left lower quadrant. The appendix is not inflamed. There is no small bowel obstr uction. There are no pathologically enlarged lymph nodes. A small umbilical hernia contains only fat. A calculus just distal to the left ureteropelvic junction measures 5 mm. There is no hydronephrosis. There appears to be contrast within the bladder from a prior procedure. There are no suspicious renal lesions without contrast. The bladder is decompressed by a Duggan catheter. IMPRESSION: 1. 5 mm left proximal ureteral calculus in unchanged position. No hydronephrosis. 2. Open vertebral body fracture at L1, unchanged. 3. Left greater than right basilar atelectasis. 4. Small umbilical hernia containing only fat. Electronically signed by: Chris Gomez MD (05/17/2020 8:44 AM) [facility]
[2020-05-17 08:56] LABS: BASE EXCESS ABG 0 mmol/L (-3-3); HCO3 ABG 28 mmol/L (21-28); PCO2 ABG 59 mmHg (35-46); PO2 ABG 90 mmHg (65-108); SAT O2 ABG 96 % (92-99)
[2020-05-17 08:59] LABS: FIO2 ABG 32
[2020-05-17] MEDS: INSULIN GLARGINE SYRINGE. SQ SCH (09:00)
--- NOTE | 2020-05-17 09:30 | NUR ---
Dr. Carroll notified of patient blood glucose of 66. Half an amp of dextrose given to patient. Blood sugar rechecked-96. Will continue to monitor.
[2020-05-17] MEDS: DEXTROSE 50% 25 GM / 50ML DISP.SYRIN. IV PRN (09:37)
[2020-05-17] MEDS: AMINO AC 3%/ELECTROLYTE/GLYCER 1,000 ML IV SCH ×2 (09:40→15:50)
[2020-05-17] MEDS: PANTOPRAZOLE IV PUSH 40 MG VIAL. IVP SCH (09:41)
[2020-05-17] MEDS: MICAFUNGIN 100 MG in IV DEXTROSE 5% 100ML 100 ML IV SCH (09:42)
[2020-05-17] MEDS: FUROSEMIDE 40 MG/4 ML VIAL. IVP SCH ×2 (09:42→16:20)
[2020-05-17] MEDS: PIPERACILLIN/TAZOBACTAM 3.375 GM in IV NORMAL SALINE 50ML 50 ML IV SCH ×4 (09:42→23:42)
--- NOTE | 2020-05-17 10:26 | PDOC ---
PULMONARY PROGRESS NOTES DATE: 05/17/20 TIME: 10:24 Subjective Patient not more short of air. Currently has a fever. Vitals Vital Signs Date Time Temp Pulse Resp B/P (MAP) Pulse Ox O2 Delivery O2 Flow Rate FiO2 05/17/20 07:00 101.1 103 16 112/62 (79) 96 Nasal Cannula 2.0 101.1 Comments Awake alert no respiratory distress Lungs: Other (b lat diminished bs ) Cardiovascular: S1, S2 Abdomen: Soft, Non-tender, Other (obese) Extremities: Other (2+edema) Skin: Warm Labs Laboratory Tests Test 05/15/20 10:43 05/15/20 16:40 05/16/20 00:13 05/16/20 03:30 Glucose (Fingerstick) 197 mg/dL (70-99) 144 mg/dL (70-99) 131 mg/dL (70-99) Sodium Level 155 mmol/L (136-145) Potassium Level 3.8 mmol/L (3.5-5.1) Chloride Level 119 mmol/L (98-107) Carbon Dioxide Level 27 mmol/L (21-32) Anion Gap 9 (6-14) Blood Urea Nitrogen 51 mg/dL (8-26) Creatinine 1.1 mg/dL (0.7-1.3) Estimated GFR (Cockcroft-Gault) 68.5 Glucose Level 126 mg/dL (70-99) Calcium Level 9.1 mg/dL (8.5-10.1) Magnesium Level 2.5 mg/dL (1.8-2.4) Creatine Kinase 67 U/L (39-308) Test 05/16/20 05:24 05/16/20 09:50 05/16/20 12:14 05/16/20 18:08 Glucose (Fingerstick) 141 mg/dL (70-99) 124 mg/dL (70-99) 69 mg/dL (70-99) White Blood Count 8.9 x10^3/uL (4.0-11.0) Red Blood Count 4.11 x10^6/uL (4.30-5.70) Hemoglobin 11.6 g/dL (13.0-17.5) Hematocrit 36.3 % (39.0-53.0) Mean Corpuscular Volume 88 fL (79-100) Mean Corpuscular Hemoglobin 28 pg (25-35) Mean Corpuscular Hemoglobin Concent 32 g/dL (31-37) Red Cell Distribution Width 20.2 % (11.5-14.5) Platelet Count 432 x10^3/uL (140-400) Neutrophils (%) (Auto) 74 % (31-73) Lymphocytes (%) (Auto) 16 % (24-48) Monocytes (%) (Auto) 8 % (0-9) Eosinophils (%) (Auto) 2 % (0-3) Basophils (%) (Auto) 1 % (0-3) Neutrophils # (Auto) 6.5 x10^3/uL (1.8-7.7) Lymphocytes # (Auto) 1.4 x10^3/uL (1.0-4.8) Monocytes # (Auto) 0.7 x10^3/uL (0.0-1.1) Eosinophils # (Auto) 0.1 x10^3/uL (0.0-0.7) Basophils # (Auto) 0.1 x10^3/uL (0.0-0.2) Test 05/16/20 23:41 05/17/20 00:09 05/17/20 03:30 05/17/20 04:00 Glucose (Fingerstick) 41 mg/dL (70-99) 90 mg/dL (70-99) Sodium Level 160 mmol/L (136-145) Potassium Level 4.1 mmol/L (3.5-5.1) Chloride Level 124 mmol/L (98-107) Carbon Dioxide Level 27 mmol/L (21-32) Anion Gap 9 (6-14) Blood Urea Nitrogen 55 mg/dL (8-26) Creatinine 1.7 mg/dL (0.7-1.3) Estimated GFR (Cockcroft-Gault) 41.5 BUN/Creatinine Ratio 32 (6-20) Glucose Level 95 mg/dL (70-99) Lactic Acid Level 4.8 mmol/L (0.4-2.0) Calcium Level 9.1 mg/dL (8.5-10.1) Total Bilirubin 1.2 mg/dL (0.2-1.0) Aspartate Amino Transf (AST/SGOT) 42 U/L (15-37) Alanine Aminotransferase (ALT/SGPT) 36 U/L (16-63) Alkaline Phosphatase 147 U/L (46-116) Total Protein 7.8 g/dL (6.4-8.2) Albumin 1.5 g/dL (3.4-5.0) Albumin/Globulin Ratio 0.2 (1.0-1.7) White Blood Count 6.9 x10^3/uL (4.0-11.0) Red Blood Count 4.17 x10^6/uL (4.30-5.70) Hemoglobin 11.8 g/dL (13.0-17.5) Hematocrit 37.2 % (39.0-53.0) Mean Corpuscular Volume 89 fL (79-100) Mean Corpuscular Hemoglobin 28 pg (25-35) Mean Corpuscular Hemoglobin Concent 32 g/dL (31-37) Red Cell Distribution Width 20.4 % (11.5-14.5) Platelet Count 427 x10^3/uL (140-400) Neutrophils (%) (Auto) 74 % (31-73) Lymphocytes (%) (Auto) 15 % (24-48) Monocytes (%) (Auto) 10 % (0-9) Eosinophils (%) (Auto) 1 % (0-3) Basophils (%) (Auto) 1 % (0-3) Neutrophils # (Auto) 5.1 x10^3/uL (1.8-7.7) Lymphocytes # (Auto) 1.0 x10^3/uL (1.0-4.8) Monocytes # (Auto) 0.7 x10^3/uL (0.0-1.1) Eosinophils # (Auto) 0.0 x10^3/uL (0.0-0.7) Basophils # (Auto) 0.0 x10^3/uL (0.0-0.2) Test 05/17/20 04:31 05/17/20 04:46 05/17/20 06:37 05/17/20 08:40 Glucose (Fingerstick) 55 mg/dL (70-99) 158 mg/dL (70-99) 88 mg/dL (70-99) Lactic Acid Level 1.7 mmol/L (0.4-2.0) Test 05/17/20 08:58 05/17/20 09:34 O2 Saturation 96 % (92-99) Arterial Blood pH 7.29 (7.35-7.45) Arterial Blood pCO2 at Patient Temp 59 mmHg (35-46) Arterial Blood pO2 at Patient Temp 90 mmHg (65-108) Arterial Blood HCO3 28 mmol/L (21-28) Arterial Blood Base Excess 0 mmol/L (-3-3) FiO2 32 Glucose (Fingerstick) 66 mg/dL (70-99) Laboratory Tests Test 05/16/20 12:14 05/16/20 18:08 05/16/20 23:41 05/17/20 00:09 Glucose (Fingerstick) 124 mg/dL (70-99) 69 mg/dL (70-99) 41 mg/dL (70-99) 90 mg/dL (70-99) Test 05/17/20 03:30 05/17/20 04:00 05/17/20 04:31 05/17/20 04:46 Sodium Level 160 mmol/L (136-145) Potassium Level 4.1 mmol/L (3.5-5.1) Chloride Level 124 mmol/L (98-107) Carbon Dioxide Level 27 mmol/L (21-32) Anion Gap 9 (6-14) Blood Urea Nitrogen 55 mg/dL (8-26) Creatinine 1.7 mg/dL (0.7-1.3) Estimated GFR (Cockcroft-Gault) 41.5 BUN/Creatinine Ratio 32 (6-20) Glucose Level 95 mg/dL (70-99) Lactic Acid Level 4.8 mmol/L (0.4-2.0) Calcium Level 9.1 mg/dL (8.5-10.1) Total Bilirubin 1.2 mg/dL (0.2-1.0) Aspartate Amino Transf (AST/SGOT) 42 U/L (15-37) Alanine Aminotransferase (ALT/SGPT) 36 U/L (16-63) Alkaline Phosphatase 147 U/L (46-116) Total Protein 7.8 g/dL (6.4-8.2) Albumin 1.5 g/dL (3.4-5.0) Albumin/Globulin Ratio 0.2 (1.0-1.7) White Blood Count 6.9 x10^3/uL (4.0-11.0) Red Blood Count 4.17 x10^6/uL (4.30-5.70) Hemoglobin 11.8 g/dL (13.0-17.5) Hematocrit 37.2 % (39.0-53.0) Mean Corpuscular Volume 89 fL (79-100) Mean Corpuscular Hemoglobin 28 pg (25-35) Mean Corpuscular Hemoglobin Concent 32 g/dL (31-37) Red Cell Distribution Width 20.4 % (11.5-14.5) Platelet Count 427 x10^3/uL (140-400) Neutrophils (%) (Auto) 74 % (31-73) Lymphocytes (%) (Auto) 15 % (24-48) Monocytes (%) (Auto) 10 % (0-9) Eosinophils (%) (Auto) 1 % (0-3) Basophils (%) (Auto) 1 % (0-3) Neutrophils # (Auto) 5.1 x10^3/uL (1.8-7.7) Lymphocytes # (Auto) 1.0 x10^3/uL (1.0-4.8) Monocytes # (Auto) 0.7 x10^3/uL (0.0-1.1) Eosinophils # (Auto) 0.0 x10^3/uL (0.0-0.7) Basophils # (Auto) 0.0 x10^3/uL (0.0-0.2) Glucose (Fingerstick) 55 mg/dL (70-99) 158 mg/dL (70-99) Test 05/17/20 06:37 05/17/20 08:40 05/17/20 08:58 05/17/20 09:34 Glucose (Fingerstick) 88 mg/dL (70-99) 66 mg/dL (70-99) Lactic Acid Level 1.7 mmol/L (0.4-2.0) O2 Saturation 96 % (92-99) Arterial Blood pH 7.29 (7.35-7.45) Arterial Blood pCO2 at Patient Temp 59 mmHg (35-46) Arterial Blood pO2 at Patient Temp 90 mmHg (65-108) Arterial Blood HCO3 28 mmol/L (21-28) Arterial Blood Base Excess 0 mmol/L (-3-3) FiO2 32 Medications Active Scripts Medications Dose Route/Sig Max Daily Dose Days Date Category [Fluconazole] 100 MG Tablet 200 Mg PO DAILY 10 07/17/19 Rx Amox Tr-K Clv 875-125 Mg Tab (Amoxicillin/Potassium Clav) 1 Each Tablet 1 Tab PO BID 10 07/17/19 Rx Hydrocodone-Acetamin 5-325 mg (Hydrocodone/Acetaminophen) 1 Each Tablet 1 Each PO PRN Q6HRS PRN 03/14/19 Reported Diclofenac Sodium 75 Mg Tablet.dr 1 Tab PO BID 03/14/19 Reported Amlodipine Besylate 5 Mg Tablet 5 Mg PO DAILY 03/14/19 Reported Furosemide 40 Mg Tablet 1 Tab PO DAILY 03/14/19 Reported Lisinopril 30 Mg Tablet 1 Tab PO DAILY 03/14/19 Reported Actos (Pioglitazone Hcl) 30 Mg Tablet 1 Tab PO DAILY 01/31/18 Reported Comments cxr 3/ increase effusions Impression . 1. Acute hypoxic respiratory failure secondary to acute encephalopathy and acute rhabdomyolysis along with metabolic acidosis. 2. Acute rhabdomyolysis 3. Bilateral interstitial infiltrates, likely suspect interstitial edema.now increase effusions 4. Leukopenia, which is now resolved and has leukocytosis, improving, neg COVID. 5. Acute kidney injury secondary to rhabdomyolysis. 6. Hyponatremia. resolved 7. E-Coli sepsis 8. Obesity, suspect obstructive sleep apnea 9. Leukocytosis, per ID, 10. 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 Updated 05/15 Respiratory status compensated, patient continues to be on room air We will see as needed, call if needed. Updated 05/14 CT abdomen pelvis per ID Discussed with speech follow-up dysphagia evaluation N.p.o. for now Antibiotics per ID Updated 05/13/2020 Off of oxygen supplementation no respiratory distress Dysphagia, n.p.o. per speech Continue maintenance IV fluids Antibiotics per ID 05/12/2020 Off of oxygen supplementation doing well Transfer out of the ICU Antibiotics per ID Patient extubated on May 11, 2020 Wean FiO2 As needed Lasix Follow nephrology input DVT GI prophylaxis Outpatient polysomnogram DARI WEATHERS MD May 17, 2020 10:26
--- NOTE | 2020-05-17 11:30 | NUR ---
Notified Dr. Arechiga that patient oxygen saturations on Bipap are between 70-85% with shallow breathing. Orders received to increase the Epap to 24, transfer patient to ICU. Nursing Sheet Pile Driver Operator notified. Will continue to monitor.
[2020-05-17] MEDS ORDERED: IV DEXTROSE 5% 1,000 ML IV SCH (11:45)
[2020-05-17] MEDS ORDERED: ROCURONIUM 50 MG/5 ML VIAL. ONE (11:57)
[2020-05-17] MEDS ORDERED: ETOMIDATE 20 MG/10 ML VIAL. IV ONE ×2 (11:57→12:30)
--- NOTE | 2020-05-17 11:57 | NUR ---
Pt transferred to room 102. Report called to ENRICO Swartz.
--- NOTE | 2020-05-17 12:03 | PDOC ---
PROGRESS NOTES Date of Service DATE: 05/17/20 TIME: 11:59 Subjective Subjective SEEN IN FOLLOW UP OF HYPERNATREMIA, EDEMA AND ARF. Objective Objective Vital Signs Date Time Temp Pulse Resp B/P (MAP) Pulse Ox O2 Delivery O2 Flow Rate FiO2 05/17/20 10:54 87 BiPAP/CPAP 05/17/20 08:00 5.0 05/17/20 07:00 101.1 103 16 112/62 (79) 101.1 Intake and Output 05/17/20 07:00 Intake Total 0 ml Output Total 2450 ml Balance -2450 ml Intake Oral 0 ml Output Urine Total 2450 ml Physical Exam Abdomen: Normal bowel sounds, Soft, No tenderness, No hepatosplenomegaly, No masses Heart: Regular rate, Normal S1, Normal S2, No murmurs, Gallops Extremities: Other (BILAT EDEMA) General: Other (SOMNULENT) Lungs: Other (POOR AIR MOVEMENT WITH APNEIC SPELLS. ) Psych/Mental Status: Other (SOMNULANT AND LETHARGIC) Diagnosis RESPIRATORY FAILURE: Acute RENAL FAILURE: Acute (Acute tubular necrosis) Other EDEMA Assessment Assessment Problems Medical Problems: (1) Acute kidney failure Status: Acute (2) Altered mental status Status: Acute (3) Hyperkalemia Status: Acute (4) Hyperuricemia Status: Acute (5) Lymphopenia Status: Acute (6) Respiratory failure with hypoxia Status: Acute Plan Plan of Care HE IS BEING MOVED TO ICU FOR INTUBATION. HIS SERUM SODIUM IS WORSENING AND WILL REDUCE PPN AND ADD D5W. CONT FLUID BALANCE Comment Review of Relevant I have reviewed the following items elina (where applicable) has been applied. Labs Laboratory Tests Test 05/15/20 16:40 05/16/20 00:13 05/16/20 03:30 05/16/20 05:24 Glucose (Fingerstick) 144 mg/dL (70-99) 131 mg/dL (70-99) 141 mg/dL (70-99) Sodium Level 155 mmol/L (136-145) Potassium Level 3.8 mmol/L (3.5-5.1) Chloride Level 119 mmol/L (98-107) Carbon Dioxide Level 27 mmol/L (21-32) Anion Gap 9 (6-14) Blood Urea Nitrogen 51 mg/dL (8-26) Creatinine 1.1 mg/dL (0.7-1.3) Estimated GFR (Cockcroft-Gault) 68.5 Glucose Level 126 mg/dL (70-99) Calcium Level 9.1 mg/dL (8.5-10.1) Magnesium Level 2.5 mg/dL (1.8-2.4) Creatine Kinase 67 U/L (39-308) Test 05/16/20 09:50 05/16/20 12:14 05/16/20 18:08 05/16/20 23:41 White Blood Count 8.9 x10^3/uL (4.0-11.0) Red Blood Count 4.11 x10^6/uL (4.30-5.70) Hemoglobin 11.6 g/dL (13.0-17.5) Hematocrit 36.3 % (39.0-53.0) Mean Corpuscular Volume 88 fL (79-100) Mean Corpuscular Hemoglobin 28 pg (25-35) Mean Corpuscular Hemoglobin Concent 32 g/dL (31-37) Red Cell Distribution Width 20.2 % (11.5-14.5) Platelet Count 432 x10^3/uL (140-400) Neutrophils (%) (Auto) 74 % (31-73) Lymphocytes (%) (Auto) 16 % (24-48) Monocytes (%) (Auto) 8 % (0-9) Eosinophils (%) (Auto) 2 % (0-3) Basophils (%) (Auto) 1 % (0-3) Neutrophils # (Auto) 6.5 x10^3/uL (1.8-7.7) Lymphocytes # (Auto) 1.4 x10^3/uL (1.0-4.8) Monocytes # (Auto) 0.7 x10^3/uL (0.0-1.1) Eosinophils # (Auto) 0.1 x10^3/uL (0.0-0.7) Basophils # (Auto) 0.1 x10^3/uL (0.0-0.2) Glucose (Fingerstick) 124 mg/dL (70-99) 69 mg/dL (70-99) 41 mg/dL (70-99) Test 05/17/20 00:09 05/17/20 03:30 05/17/20 04:00 05/17/20 04:31 Glucose (Fingerstick) 90 mg/dL (70-99) 55 mg/dL (70-99) Sodium Level 160 mmol/L (136-145) Potassium Level 4.1 mmol/L (3.5-5.1) Chloride Level 124 mmol/L (98-107) Carbon Dioxide Level 27 mmol/L (21-32) Anion Gap 9 (6-14) Blood Urea Nitrogen 55 mg/dL (8-26) Creatinine 1.7 mg/dL (0.7-1.3) Estimated GFR (Cockcroft-Gault) 41.5 BUN/Creatinine Ratio 32 (6-20) Glucose Level 95 mg/dL (70-99) Lactic Acid Level 4.8 mmol/L (0.4-2.0) Calcium Level 9.1 mg/dL (8.5-10.1) Total Bilirubin 1.2 mg/dL (0.2-1.0) Aspartate Amino Transf (AST/SGOT) 42 U/L (15-37) Alanine Aminotransferase (ALT/SGPT) 36 U/L (16-63) Alkaline Phosphatase 147 U/L (46-116) Total Protein 7.8 g/dL (6.4-8.2) Albumin 1.5 g/dL (3.4-5.0) Albumin/Globulin Ratio 0.2 (1.0-1.7) White Blood Count 6.9 x10^3/uL (4.0-11.0) Red Blood Count 4.17 x10^6/uL (4.30-5.70) Hemoglobin 11.8 g/dL (13.0-17.5) Hematocrit 37.2 % (39.0-53.0) Mean Corpuscular Volume 89 fL (79-100) Mean Corpuscular Hemoglobin 28 pg (25-35) Mean Corpuscular Hemoglobin Concent 32 g/dL (31-37) Red Cell Distribution Width 20.4 % (11.5-14.5) Platelet Count 427 x10^3/uL (140-400) Neutrophils (%) (Auto) 74 % (31-73) Lymphocytes (%) (Auto) 15 % (24-48) Monocytes (%) (Auto) 10 % (0-9) Eosinophils (%) (Auto) 1 % (0-3) Basophils (%) (Auto) 1 % (0-3) Neutrophils # (Auto) 5.1 x10^3/uL (1.8-7.7) Lymphocytes # (Auto) 1.0 x10^3/uL (1.0-4.8) Monocytes # (Auto) 0.7 x10^3/uL (0.0-1.1) Eosinophils # (Auto) 0.0 x10^3/uL (0.0-0.7) Basophils # (Auto) 0.0 x10^3/uL (0.0-0.2) Test 05/17/20 04:46 05/17/20 06:37 05/17/20 08:40 05/17/20 08:58 Glucose (Fingerstick) 158 mg/dL (70-99) 88 mg/dL (70-99) Lactic Acid Level 1.7 mmol/L (0.4-2.0) O2 Saturation 96 % (92-99) Arterial Blood pH 7.29 (7.35-7.45) Arterial Blood pCO2 at Patient Temp 59 mmHg (35-46) Arterial Blood pO2 at Patient Temp 90 mmHg (65-108) Arterial Blood HCO3 28 mmol/L (21-28) Arterial Blood Base Excess 0 mmol/L (-3-3) FiO2 32 Test 05/17/20 09:34 05/17/20 10:44 Glucose (Fingerstick) 66 mg/dL (70-99) 96 mg/dL (70-99) Laboratory Tests Test 05/16/20 12:14 05/16/20 18:08 05/16/20 23:41 05/17/20 00:09 Glucose (Fingerstick) 124 mg/dL (70-99) 69 mg/dL (70-99) 41 mg/dL (70-99) 90 mg/dL (70-99) Test 05/17/20 03:30 05/17/20 04:00 05/17/20 04:31 05/17/20 04:46 Sodium Level 160 mmol/L (136-145) Potassium Level 4.1 mmol/L (3.5-5.1) Chloride Level 124 mmol/L (98-107) Carbon Dioxide Level 27 mmol/L (21-32) Anion Gap 9 (6-14) Blood Urea Nitrogen 55 mg/dL (8-26) Creatinine 1.7 mg/dL (0.7-1.3) Estimated GFR (Cockcroft-Gault) 41.5 BUN/Creatinine Ratio 32 (6-20) Glucose Level 95 mg/dL (70-99) Lactic Acid Level 4.8 mmol/L (0.4-2.0) Calcium Level 9.1 mg/dL (8.5-10.1) Total Bilirubin 1.2 mg/dL (0.2-1.0) Aspartate Amino Transf (AST/SGOT) 42 U/L (15-37) Alanine Aminotransferase (ALT/SGPT) 36 U/L (16-63) Alkaline Phosphatase 147 U/L (46-116) Total Protein 7.8 g/dL (6.4-8.2) Albumin 1.5 g/dL (3.4-5.0) Albumin/Globulin Ratio 0.2 (1.0-1.7) White Blood Count 6.9 x10^3/uL (4.0-11.0) Red Blood Count 4.17 x10^6/uL (4.30-5.70) Hemoglobin 11.8 g/dL (13.0-17.5) Hematocrit 37.2 % (39.0-53.0) Mean Corpuscular Volume 89 fL (79-100) Mean Corpuscular Hemoglobin 28 pg (25-35) Mean Corpuscular Hemoglobin Concent 32 g/dL (31-37) Red Cell Distribution Width 20.4 % (11.5-14.5) Platelet Count 427 x10^3/uL (140-400) Neutrophils (%) (Auto) 74 % (31-73) Lymphocytes (%) (Auto) 15 % (24-48) Monocytes (%) (Auto) 10 % (0-9) Eosinophils (%) (Auto) 1 % (0-3) Basophils (%) (Auto) 1 % (0-3) Neutrophils # (Auto) 5.1 x10^3/uL (1.8-7.7) Lymphocytes # (Auto) 1.0 x10^3/uL (1.0-4.8) Monocytes # (Auto) 0.7 x10^3/uL (0.0-1.1) Eosinophils # (Auto) 0.0 x10^3/uL (0.0-0.7) Basophils # (Auto) 0.0 x10^3/uL (0.0-0.2) Glucose (Fingerstick) 55 mg/dL (70-99) 158 mg/dL (70-99) Test 05/17/20 06:37 05/17/20 08:40 05/17/20 08:58 05/17/20 09:34 Glucose (Fingerstick) 88 mg/dL (70-99) 66 mg/dL (70-99) Lactic Acid Level 1.7 mmol/L (0.4-2.0) O2 Saturation 96 % (92-99) Arterial Blood pH 7.29 (7.35-7.45) Arterial Blood pCO2 at Patient Temp 59 mmHg (35-46) Arterial Blood pO2 at Patient Temp 90 mmHg (65-108) Arterial Blood HCO3 28 mmol/L (21-28) Arterial Blood Base Excess 0 mmol/L (-3-3) FiO2 32 Test 05/17/20 10:44 Glucose (Fingerstick) 96 mg/dL (70-99) Microbiology 05/15/20 Blood Culture - Preliminary, Resulted NO GROWTH AFTER 1 DAY 05/04/20 Urine Culture - Final, Complete 05/04/20 Antimicrobic Susceptibility - Final, Complete Medications Current Medications Sodium Chloride 1,000 ml @ 1,000 mls/hr 1X ONCE IV Last administered on 05/04/20at 11:32; Start 05/04/20 at 11:45; Stop 05/04/20 at 12:44; Status DC Ceftriaxone Sodium (Rocephin) 1 gm 1X ONCE IVP Last administered on 05/04/20at 11:33; Start 05/04/20 at 11:45; Stop 05/04/20 at 11:46; Status DC Norepinephrine Bitartrate 8 mg/ Dextrose 258 ml @ 35.314 mls/ hr CONT PRN IV PER PROTOCOL Last administered on 05/04/20at 17:00; Start 05/04/20 at 17:00; Stop 05/04/20 at 18:09; Status DC Naloxone HCl (Narcan) 0.4 mg 1X ONCE IV Last administered on 05/04/20at 17:00; Start 05/04/20 at 17:00; Stop 05/04/20 at 17:01; Status DC Propofol 0 ml @ As Directed STK-MED ONCE IV ; Start 05/04/20 at 17:20; Stop 05/04/20 at 17:20; Status DC Succinylcholine Chloride (Anectine) 200 mg STK-MED ONCE .ROUTE ; Start 05/04/20 at 17:20; Stop 05/04/20 at 17:20; Status DC Rocuronium Mcgehee (Zemuron) 50 mg STK-MED ONCE .ROUTE ; Start 05/04/20 at 17:20; Stop 05/04/20 at 17:21; Status DC Etomidate (Amidate) 20 mg STK-MED ONCE IV ; Start 05/04/20 at 17:20; Stop 05/04/20 at 17:21; Status DC Sodium Bicarbonate 150 meq/Dextrose 1,150 ml @ 150 mls/hr Q7H40M IV Last administered on 05/06/20at 07:44; Start 05/04/20 at 18:30; Stop 05/06/20 at 16:49; Status DC Fentanyl Citrate 30 ml @ 0 mls/hr CONT PRN IV SEE PROTOCOL; Start 05/04/20 at 18:15; Stop 05/11/20 at 17:42; Status DC Midazolam HCl 100 ml @ 0 mls/hr CONT PRN IV SEE PROTOCOL Last administered on 05/06/20at 19:09; Start 05/04/20 at 18:15; Stop 05/11/20 at 17:42; Status DC Norepinephrine Bitartrate 32 mg/ Dextrose 282 ml @ 9.65 mls/hr CONT PRN IV PER PROTOCOL Last administered on 05/06/20at 14:08; Start 05/04/20 at 18:15; Stop 05/11/20 at 17:42; Status DC Piperacillin Sod/ Tazobactam Sod 2.25 gm/Sodium Chloride 50 ml @ 100 mls/hr Q6HRS IV Last administered on 05/06/20at 06:36; Start 05/05/20 at 08:00; Stop 05/06/20 at 08:39; Status DC Daptomycin 700 mg/ Sodium Chloride 50 ml @ 100 mls/hr Q48H IV Last administered on 05/05/20at 08:42; Start 05/05/20 at 09:00; Stop 05/06/20 at 09:09; Status DC Insulin Glargine (Lantus Syringe) 20 unit DAILY10 SQ Last administered on 05/05/20at 10:03; Start 05/05/20 at 10:00; Stop 05/06/20 at 09:08; Status DC Insulin Human Lispro (HumaLOG) 0-7 UNITS Q6HRS SQ Last administered on 05/14/20at 09:23; Start 05/05/20 at 12:00; Stop 05/17/20 at 10:23; Status DC Dextrose (Dextrose 50%-Water Syringe) 12.5 gm PRN Q15MIN PRN IV SEE COMMENTS Last administered on 05/17/20at 09:37; Start 05/05/20 at 09:15 Heparin Sodium (Porcine) (Heparin Sodium) 5,000 unit Q8HRS SQ Last administered on 05/17/20at 06:41; Start 05/05/20 at 14:00 Famotidine (Pepcid Vial) 20 mg QHS IVP Last administered on 05/08/20at 21:36; Start 05/05/20 at 21:00; Stop 05/09/20 at 10:18; Status DC Phenylephrine HCl (PHENYLEPHRINE in 0.9% NACL PF) 1 mg STK-MED ONCE IV ; Start 05/04/20 at 18:00; Stop 05/05/20 at 12:11; Status DC Etomidate (Amidate) 20 mg STK-MED ONCE IV ; Start 05/04/20 at 18:00; Stop 05/05/20 at 12:28; Status DC Rocuronium Mcgehee (Zemuron) 50 mg STK-MED ONCE .ROUTE ; Start 05/04/20 at 18:00; Stop 05/05/20 at 12:28; Status DC Succinylcholine Chloride (Anectine) 200 mg STK-MED ONCE .ROUTE ; Start 05/04/20 at 18:00; Stop 05/05/20 at 12:28; Status DC Propofol (Diprivan) 1,000 mg STK-MED ONCE IV ; Start 05/04/20 at 18:00; Stop 05/05/20 at 12:28; Status DC Piperacillin Sod/ Tazobactam Sod 3.375 gm/Sodium Chloride 50 ml @ 100 mls/hr Q6HRS IV Last administered on 05/11/20at 05:31; Start 05/06/20 at 12:00; Stop 05/11/20 at 10:49; Status DC Insulin Glargine (Lantus Syringe) 40 unit DAILY10 SQ Last administered on 05/06/20at 09:37; Start 05/06/20 at 10:00; Stop 05/07/20 at 07:18; Status DC Fentanyl Citrate (Fentanyl 2ml Vial) 100 mcg STK-MED ONCE .ROUTE ; Start 05/06/20 at 11:35; Stop 05/06/20 at 11:35; Status DC Fentanyl Citrate (Fentanyl 2ml Vial) 50 mcg PRN Q2HR PRN IVP PAIN Last administered on 05/15/20at 10:48; Start 05/06/20 at 10:45 Insulin Glargine (Lantus Syringe) 60 unit DAILY SQ Last administered on 05/08/20at 09:01; Start 05/07/20 at 09:00; Stop 05/08/20 at 09:02; Status DC Fentanyl Citrate (Fentanyl 2ml Vial) 100 mcg STK-MED ONCE .ROUTE ; Start 05/06/20 at 11:40; Stop 05/07/20 at 08:51; Status DC Propofol 100 ml @ 5.247 mls/ hr CONT PRN IV PER PROTOCOL Last administered on 05/10/20at 06:17; Start 05/07/20 at 09:30; Stop 05/11/20 at 17:42; Status DC Insulin Glargine (Lantus Syringe) 90 unit DAILY SQ Last administered on 05/09/20at 08:22; Start 05/09/20 at 09:00; Stop 05/09/20 at 09:46; Status DC Insulin Glargine (Lantus Syringe) 30 unit 1X ONCE SQ Last administered on 05/08/20at 09:28; Start 05/08/20 at 09:30; Stop 05/08/20 at 09:31; Status DC Furosemide (Lasix) 40 mg 1X ONCE IVP Last administered on 05/08/20at 09:32; Start 05/08/20 at 10:00; Stop 05/08/20 at 10:01; Status DC Insulin Glargine (Lantus Syringe) 100 unit DAILY SQ ; Start 05/10/20 at 09:00; Stop 05/10/20 at 08:11; Status DC Pantoprazole Sodium (PROTONIX VIAL for IV PUSH) 40 mg DAILYAC IVP Last administered on 05/17/20at 09:41; Start 05/10/20 at 07:30 Furosemide (Lasix) 40 mg 1X ONCE IVP Last administered on 05/09/20at 11:09; Start 05/09/20 at 11:00; Stop 05/09/20 at 11:02; Status DC Hydralazine HCl (Apresoline Inj) 10 mg PRN Q4HRS PRN IVP ELEVATED BP, SEE COMMENTS Last administered on 05/09/20at 11:10; Start 05/09/20 at 11:15 Insulin Glargine (Lantus Syringe) 110 unit DAILY SQ Last administered on 05/16/20at 08:52; Start 05/10/20 at 09:00; Stop 05/17/20 at 10:23; Status DC Dexmedetomidine HCl 400 mcg/ Sodium Chloride 100 ml @ 0 mls/hr CONT PRN IV PER PROTOCOL Last administered on 05/11/20at 11:37; Start 05/10/20 at 10:30; Stop 05/11/20 at 17:42; Status DC Sodium Chloride 500 ml @ 500 mls/hr 1X PRN PRN IV SEE COMMENTS; Start 05/10/20 at 10:30; Stop 05/11/20 at 17:42; Status DC Atropine Sulfate (ATROPINE 0.5mg SYRINGE) 0.5 mg PRN Q5MIN PRN IV SEE COMMENTS; Start 05/10/20 at 10:30; Stop 05/11/20 at 17:42; Status DC Furosemide (Lasix) 40 mg 1X ONCE IVP Last administered on 05/10/20at 11:27; Start 05/10/20 at 11:00; Stop 05/10/20 at 11:01; Status DC Daptomycin 690 mg/ Sodium Chloride 50 ml @ 100 mls/hr Q24H IV Last administered on 05/10/20at 20:26; Start 05/10/20 at 20:00; Stop 05/11/20 at 10:49; Status DC Acetaminophen (Tylenol) 650 mg PRN Q6HRS PRN PEG MILD PAIN / TEMP > 100.3'F Last administered on 05/10/20at 20:20; Start 05/10/20 at 20:00 Meropenem 1 gm/ Sodium Chloride 100 ml @ 200 mls/hr Q8HRS IV Last administered on 05/15/20at 05:07; Start 05/11/20 at 14:00; Stop 05/15/20 at 08:45; Status DC Dextrose 1,000 ml @ 50 mls/hr Q20H IV Last administered on 05/12/20at 19:34; Start 05/11/20 at 18:45; Stop 05/13/20 at 11:03; Status DC Furosemide (Lasix) 60 mg 1X ONCE IVP Last administered on 05/12/20at 10:35; Start 05/12/20 at 10:30; Stop 05/12/20 at 10:31; Status DC Potassium Chloride/Water 100 ml @ 100 mls/hr Q1H IV Last administered on 05/13/20at 15:56; Start 05/13/20 at 12:00; Stop 05/13/20 at 13:59; Status DC Amino Acids/ Glycerin/ Electrolytes 1,000 ml @ 40 mls/hr Q24H IV Last administered on 05/17/20at 09:40; Start 05/13/20 at 11:15 Furosemide (Lasix) 80 mg BID94 IVP Last administered on 05/17/20at 09:42; Start 05/13/20 at 11:15 Ceftriaxone Sodium (Rocephin) 2 gm Q24H IVP Last administered on 05/16/20at 08:50; Start 05/15/20 at 09:00; Stop 05/17/20 at 07:34; Status DC Potassium Chloride/Water 100 ml @ 100 mls/hr Q1H IV Last administered on 05/15/20at 14:09; Start 05/15/20 at 13:00; Stop 05/15/20 at 14:59; Status DC Acetaminophen (Tylenol Supp) 650 mg PRN Q6HRS PRN RI MILD PAIN / TEMP > 100.3'F Last administered on 05/15/20at 14:38; Start 05/15/20 at 14:30 Daptomycin 700 mg/ Sodium Chloride 50 ml @ 100 mls/hr Q24H IV Last admin istered on 05/16/20at 15:40; Start 05/15/20 at 15:30 Micafungin Sodium 100 mg/Dextrose 100 ml @ 100 mls/hr Q24H IV Last adminis tered on 05/17/20at 09:42; Start 05/16/20 at 08:00 Sodium Chloride 1,000 ml @ 1,000 mls/hr 1X ONCE IV Last administered on 05/04 06/24at 06:29; Start 05/17/20 at 06:30; Stop 05/17/20 at 07:29; Status DC Piperacillin Sod/ Tazobactam Sod (Zosyn Per Pharmacy) 1 each PRN DAILY PRN MC SEE COMMENTS; Start 05/17/20 at 07:30 Piperacillin Sod/ Tazobactam Sod 3.375 gm/Sodium Chloride 50 ml @ 100 mls/hr Q6HRS IV Last administered on 05/17/20at 09:42; Start 05/17/20 at 08:00 Dextrose 1,000 ml @ 40 mls/hr Q24H IV ; Start 05/17/20 at 11:45 Rocuronium Mcgehee (Zemuron) 50 mg STK-MED ONCE .ROUTE ; Start 05/17/20 at 11:57; Stop 05/17/20 at 11:57; Status DC Etomidate (Amidate) 20 mg STK-MED ONCE IV ; Start 05/17/20 at 11:57; Stop 05/17/20 at 11:58; Status DC Active Scripts Active [Fluconazole] 100 MG Tablet 200 Mg PO DAILY 10 Days Amox Tr-K Clv 875-125 Mg Tab (Amoxicillin/Potassium Clav) 1 Each Tablet 1 Tab PO BID 10 Days Reported Hydrocodone-Acetamin 5-325 mg (Hydrocodone/Acetaminophen) 1 Each Tablet 1 Each PO PRN Q6HRS PRN Diclofenac Sodium 75 Mg Tablet.dr 1 Tab PO BID Amlodipine Besylate 5 Mg Tablet 5 Mg PO DAILY Furosemide 40 Mg Tablet 1 Tab PO DAILY Lisinopril 30 Mg Tablet 1 Tab PO DAILY Actos (Pioglitazone Hcl) 30 Mg Tablet 1 Tab PO DAILY Vitals/I & O Vital Sign - Last 24 Hours 05/16/20 05/16/20 05/17/20 05/17/20 15:00 20:01 04:30 05:02 Temp 97.4 100.3 97.4 100.3 Pulse 111 120 Resp 20 20 B/P (MAP) 130/67 (88) 138/77 (97) 152/47 (82) Pulse Ox 94 95 95 O2 Delivery Room Air Room Air NonRebreather Mask Venturi Mask O2 Flow Rate 15.0 05/17/20 05/17/20 05/17/20 07:00 08:00 10:54 Temp 101.1 101.1 Pulse 103 Resp 16 B/P (MAP) 112/62 (79) Pulse Ox 96 87 O2 Delivery Nasal Cannula Nasal Cannula BiPAP/CPAP O2 Flow Rate 2.0 5.0 Intake and Output 05/16/20 05/16/20 05/17/20 15:00 23:00 07:00 Intake Total 0 ml 0 ml Output Total 2000 ml 450 ml Balance -2000 ml 0 ml -450 ml Justifications for Admission Other Justification FRANCIS GUERRERO MD May 17, 2020 12:03
--- NOTE | 2020-05-17 12:03 | NUR ---
This RN notified pt brother Ernesto of the transfer.
--- NOTE | 2020-05-17 12:18 | PDOC ---
PULMONARY PROGRESS NOTES DATE: 05/17/20 TIME: 12:[address] aFy to follow-up on patient Patient had a rapid response overnight ABG noted Patient currently in respiratory distress, I discussed it with RN and RT to initiate BiPAP. Vitals Vital Signs Date Time Temp Pulse Resp B/P (MAP) Pulse Ox O2 Delivery O2 Flow Rate FiO2 05/17/20 10:54 87 BiPAP/CPAP 05/17/20 08:00 5.0 05/17/20 07:00 101.1 103 16 112/62 (79) 101.1 Comments Awake alert no respiratory distress Lungs: Other (b lat diminished bs ) Cardiovascular: S1, S2 Abdomen: Soft, Non-tender, Other (obese) Extremities: Other (2+edema) Skin: Warm Labs Laboratory Tests Test 05/15/20 16:40 05/16/20 00:13 05/16/20 03:30 05/16/20 05:24 Glucose (Fingerstick) 144 mg/dL (70-99) 131 mg/dL (70-99) 141 mg/dL (70-99) Sodium Level 155 mmol/L (136-145) Potassium Level 3.8 mmol/L (3.5-5.1) Chloride Level 119 mmol/L (98-107) Carbon Dioxide Level 27 mmol/L (21-32) Anion Gap 9 (6-14) Blood Urea Nitrogen 51 mg/dL (8-26) Creatinine 1.1 mg/dL (0.7-1.3) Estimated GFR (Cockcroft-Gault) 68.5 Glucose Level 126 mg/dL (70-99) Calcium Level 9.1 mg/dL (8.5-10.1) Magnesium Level 2.5 mg/dL (1.8-2.4) Creatine Kinase 67 U/L (39-308) Test 05/16/20 09:50 05/16/20 12:14 05/16/20 18:08 05/16/20 23:41 White Blood Count 8.9 x10^3/uL (4.0-11.0) Red Blood Count 4.11 x10^6/uL (4.30-5.70) Hemoglobin 11.6 g/dL (13.0-17.5) Hematocrit 36.3 % (39.0-53.0) Mean Corpuscular Volume 88 fL (79-100) Mean Corpuscular Hemoglobin 28 pg (25-35) Mean Corpuscular Hemoglobin Concent 32 g/dL (31-37) Red Cell Distribution Width 20.2 % (11.5-14.5) Platelet Count 432 x10^3/uL (140-400) Neutrophils (%) (Auto) 74 % (31-73) Lymphocytes (%) (Auto) 16 % (24-48) Monocytes (%) (Auto) 8 % (0-9) Eosinophils (%) (Auto) 2 % (0-3) Basophils (%) (Auto) 1 % (0-3) Neutrophils # (Auto) 6.5 x10^3/uL (1.8-7.7) Lymphocytes # (Auto) 1.4 x10^3/uL (1.0-4.8) Monocytes # (Auto) 0.7 x10^3/uL (0.0-1.1) Eosinophils # (Auto) 0.1 x10^3/uL (0.0-0.7) Basophils # (Auto) 0.1 x10^3/uL (0.0-0.2) Glucose (Fingerstick) 124 mg/dL (70-99) 69 mg/dL (70-99) 41 mg/dL (70-99) Test 05/17/20 00:09 05/17/20 03:30 05/17/20 04:00 05/17/20 04:31 Glucose (Fingerstick) 90 mg/dL (70-99) 55 mg/dL (70-99) Sodium Level 160 mmol/L (136-145) Potassium Level 4.1 mmol/L (3.5-5.1) Chloride Level 124 mmol/L (98-107) Carbon Dioxide Level 27 mmol/L (21-32) Anion Gap 9 (6-14) Blood Urea Nitrogen 55 mg/dL (8-26) Creatinine 1.7 mg/dL (0.7-1.3) Estimated GFR (Cockcroft-Gault) 41.5 BUN/Creatinine Ratio 32 (6-20) Glucose Level 95 mg/dL (70-99) Lactic Acid Level 4.8 mmol/L (0.4-2.0) Calcium Level 9.1 mg/dL (8.5-10.1) Total Bilirubin 1.2 mg/dL (0.2-1.0) Aspartate Amino Transf (AST/SGOT) 42 U/L (15-37) Alanine Aminotransferase (ALT/SGPT) 36 U/L (16-63) Alkaline Phosphatase 147 U/L (46-116) Total Protein 7.8 g/dL (6.4-8.2) Albumin 1.5 g/dL (3.4-5.0) Albumin/Globulin Ratio 0.2 (1.0-1.7) White Blood Count 6.9 x10^3/uL (4.0-11.0) Red Blood Count 4.17 x10^6/uL (4.30-5.70) Hemoglobin 11.8 g/dL (13.0-17.5) Hematocrit 37.2 % (39.0-53.0) Mean Corpuscular Volume 89 fL (79-100) Mean Corpuscular Hemoglobin 28 pg (25-35) Mean Corpuscular Hemoglobin Concent 32 g/dL (31-37) Red Cell Distribution Width 20.4 % (11.5-14.5) Platelet Count 427 x10^3/uL (140-400) Neutrophils (%) (Auto) 74 % (31-73) Lymphocytes (%) (Auto) 15 % (24-48) Monocytes (%) (Auto) 10 % (0-9) Eosinophils (%) (Auto) 1 % (0-3) Basophils (%) (Auto) 1 % (0-3) Neutrophils # (Auto) 5.1 x10^3/uL (1.8-7.7) Lymphocytes # (Auto) 1.0 x10^3/uL (1.0-4.8) Monocytes # (Auto) 0.7 x10^3/uL (0.0-1.1) Eosinophils # (Auto) 0.0 x10^3/uL (0.0-0.7) Basophils # (Auto) 0.0 x10^3/uL (0.0-0.2) Test 05/17/20 04:46 05/17/20 06:37 05/17/20 08:40 05/17/20 08:58 Glucose (Fingerstick) 158 mg/dL (70-99) 88 mg/dL (70-99) Lactic Acid Level 1.7 mmol/L (0.4-2.0) O2 Saturation 96 % (92-99) Arterial Blood pH 7.29 (7.35-7.45) Arterial Blood pCO2 at Patient Temp 59 mmHg (35-46) Arterial Blood pO2 at Patient Temp 90 mmHg (65-108) Arterial Blood HCO3 28 mmol/L (21-28) Arterial Blood Base Excess 0 mmol/L (-3-3) FiO2 32 Test 05/17/20 09:34 05/17/20 10:44 Glucose (Fingerstick) 66 mg/dL (70-99) 96 mg/dL (70-99) Laboratory Tests Test 05/16/20 18:08 05/16/20 23:41 05/17/20 00:09 05/17/20 03:30 Glucose (Fingerstick) 69 mg/dL (70-99) 41 mg/dL (70-99) 90 mg/dL (70-99) Sodium Level 160 mmol/L (136-145) Potassium Level 4.1 mmol/L (3.5-5.1) Chloride Level 124 mmol/L (98-107) Carbon Dioxide Level 27 mmol/L (21-32) Anion Gap 9 (6-14) Blood Urea Nitrogen 55 mg/dL (8-26) Creatinine 1.7 mg/dL (0.7-1.3) Estimated GFR (Cockcroft-Gault) 41.5 BUN/Creatinine Ratio 32 (6-20) Glucose Level 95 mg/dL (70-99) Lactic Acid Level 4.8 mmol/L (0.4-2.0) Calcium Level 9.1 mg/dL (8.5-10.1) Total Bilirubin 1.2 mg/dL (0.2-1.0) Aspartate Amino Transf (AST/SGOT) 42 U/L (15-37) Alanine Aminotransferase (ALT/SGPT) 36 U/L (16-63) Alkaline Phosphatase 147 U/L (46-116) Total Protein 7.8 g/dL (6.4-8.2) Albumin 1.5 g/dL (3.4-5.0) Albumin/Globulin Ratio 0.2 (1.0-1.7) Test 05/17/20 04:00 05/17/20 04:31 05/17/20 04:46 05/17/20 06:37 White Blood Count 6.9 x10^3/uL (4.0-11.0) Red Blood Count 4.17 x10^6/uL (4.30-5.70) Hemoglobin 11.8 g/dL (13.0-17.5) Hematocrit 37.2 % (39.0-53.0) Mean Corpuscular Volume 89 fL (79-100) Mean Corpuscular Hemoglobin 28 pg (25-35) Mean Corpuscular Hemoglobin Concent 32 g/dL (31-37) Red Cell Distribution Width 20.4 % (11.5-14.5) Platelet Count 427 x10^3/uL (140-400) Neutrophils (%) (Auto) 74 % (31-73) Lymphocytes (%) (Auto) 15 % (24-48) Monocytes (%) (Auto) 10 % (0-9) Eosinophils (%) (Auto) 1 % (0-3) Basophils (%) (Auto) 1 % (0-3) Neutrophils # (Auto) 5.1 x10^3/uL (1.8-7.7) Lymphocytes # (Auto) 1.0 x10^3/uL (1.0-4.8) Monocytes # (Auto) 0.7 x10^3/uL (0.0-1.1) Eosinophils # (Auto) 0.0 x10^3/uL (0.0-0.7) Basophils # (Auto) 0.0 x10^3/uL (0.0-0.2) Glucose (Fingerstick) 55 mg/dL (70-99) 158 mg/dL (70-99) 88 mg/dL (70-99) Test 05/17/20 08:40 05/17/20 08:58 05/17/20 09:34 05/17/20 10:44 Lactic Acid Level 1.7 mmol/L (0.4-2.0) O2 Saturation 96 % (92-99) Arterial Blood pH 7.29 (7.35-7.45) Arterial Blood pCO2 at Patient Temp 59 mmHg (35-46) Arterial Blood pO2 at Patient Temp 90 mmHg (65-108) Arterial Blood HCO3 28 mmol/L (21-28) Arterial Blood Base Excess 0 mmol/L (-3-3) FiO2 32 Glucose (Fingerstick) 66 mg/dL (70-99) 96 mg/dL (70-99) Medications Active Scripts Medications Dose Route/Sig Max Daily Dose Days Date Category [Fluconazole] 100 MG Tablet 200 Mg PO DAILY 10 07/17/19 Rx Amox Tr-K Clv 875-125 Mg Tab (Amoxicillin/Potassium Clav) 1 Each Tablet 1 Tab PO BID 10 07/17/19 Rx Hydrocodone-Acetamin 5-325 mg (Hydrocodone/Acetaminophen) 1 Each Tablet 1 Each PO PRN Q6HRS PRN 03/14/19 Reported Diclofenac Sodium 75 Mg Tablet. 1 Tab PO BID 03/14/19 Reported Amlodipine Besylate 5 Mg Tablet 5 Mg PO DAILY 03/14/19 Reported Furosemide 40 Mg Tablet 1 Tab PO DAILY 03/14/19 Reported Lisinopril 30 Mg Tablet 1 Tab PO DAILY 03/14/19 Reported Actos (Pioglitazone Hcl) 30 Mg Tablet 1 Tab PO DAILY 01/31/18 Reported Comments cxr 3/4 increase effusions Impression . 1. Acute hypoxic respiratory failure secondary to acute encephalopathy and acute rhabdomyolysis along with metabolic acidosis. 2. Acute rhabdomyolysis 3. Bilateral interstitial infiltrates, likely suspect interstitial edema.now increase effusions 4. Leukopenia, which is now resolved and has leukocytosis, improving, neg COVID. 5. Acute kidney injury secondary to rhabdomyolysis. 6. Hyponatremia. resolved 7. E-Coli sepsis 8. Obesity, suspect obstructive sleep apnea 9. Leukocytosis, per ID, 10. 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 Hypernatremia 12. Fever, per ID 13. Urethral stone with recurrent E. coli bacteremia Plan . Updated 05/17 Dr. Fay asked me to revisit with the patient Patient is deteriorating, will initiate BiPAP Transfer to intensive care unit ID consult noted patient currently on Zosyn, ID recommended that patient be transferred to a facility where urological services are available Discussed with RT and RN Continue empiric antibiotics May require intubation Total cumulative critical care time of 30 minutes with no overlap Updated 05/15 Respiratory status compensated, patient continues to be on room air We will see as needed, call if needed. Updated 05/14 CT abdomen pelvis per ID Discussed with speech follow-up dysphagia evaluation N.p.o. for now Antibiotics per ID Updated 05/13/2020 Off of oxygen supplementation no respiratory distress Dysphagia, n.p.o. per speech Continue maintenance IV fluids Antibiotics per ID 05/12/2020 Off of oxygen supplementation doing well Transfer out of the ICU Antibiotics per ID Patient extubated on May 11, 2020 Wean FiO2 As needed Lasix Follow nephrology input DVT GI prophylaxis Outpatient polysomnogram DARI WEATHERS MD May 17, 2020 12:18
[2020-05-17] MEDS ORDERED: MIDAZOLAM HCL/PF 5 MG/5 ML VIAL. ONE (12:25)
[2020-05-17] MEDS ORDERED: ROCURONIUM 50 MG/5 ML VIAL. IV ONE (12:30)
[2020-05-17] MEDS ORDERED: fentaNYL PF VIAL 100 MCG/2 ML VIAL IV PRN ×2 (12:30)
[2020-05-17] MEDS ORDERED: MIDAZOLAM HCL/PF 5 MG/5 ML VIAL. IV ONE (12:30)
[2020-05-17] MEDS: MIDAZOLAM 100mg/100ml NS BAG 100 ML IV PRN ×2 (12:51→21:38)
--- NOTE | 2020-05-17 12:53 | RAD ---
XR CHEST 1V CLINICAL INDICATIONS: Reason: ET and OG placement COMPARISON: May 07, 2020. Findings: ET tube is in place and the tip is located 2 cm above the level of the jennifer. NG tube is i n place and the tip cannot be seen in this study but the tube is seen extending into at least the pro ximal body of the stomach. No pneumothorax is seen. There has been improvement of the bibasilar lung infiltrates since the prior study. The right lung field appears clear today. There is persistent left lung base infiltrate with a small left-sided pleural effusion. Heart size and mediastinum are stable . IMPRESSION: Resolution of right lung base infiltrate. Improvement in left lung base infiltrate. Persi stent small left-sided pleural effusion. Electronically signed by: Zach Rain MD (05/17/2020 12:51 PM) [id number]
--- NOTE | 2020-05-17 12:54 | PDOC ---
PROGRESS NOTES Date of Service DATE: 05/17/20 TIME: 12:52 Assessment Problems Medical Problems: (1) Acute kidney failure Status: Acute (2) Altered mental status Status: Acute (3) Hyperkalemia Status: Acute (4) Hyperuricemia Status: Acute (5) Lymphopenia Status: Acute (6) Respiratory failure with hypoxia Status: Acute Nurse called me early this morning, patient was pallorous, in respiratory distress. Advised transfer to ICU. They did try BiPAP but he ended up being re-intubated. Metabolic encephalopathy due to renal failure, respiratory failure, E-Coli sepsis, no evidence of primary neurological issue such as stroke, seizures, central nervous system infection. Rhabdomyolysis and leukopenia, improving Also has acute kidney injury, COVID neg Dysphagia after extubation on 05/[address], done, negative Treat medical diseases Subjective None Objective Vital Signs Date Time Temp Pulse Resp B/P (MAP) Pulse Ox O2 Delivery O2 Flow Rate FiO2 05/17/20 12:49 16 100 Ventilator 05/17/20 12:45 05/17/20 08:00 5.0 05/17/20 07:00 101.1 103 101.1 Intake and Output 05/17/20 07:00 Intake Total 0 ml Output Total 2450 ml Balance -2450 ml Intake Oral 0 ml Output Urine Total 2450 ml PHYSICAL EXAM Intubated and sedated PERRL. EOMI. CN: no focal findings. Muscle tone: normal. Muscle strength: Minimal withdrawal to pain DTR: 0+ Plantar reflex: Flexor Gait: not examined in bed. Sensory exam: Not testable. Cerebellar: Not testable Review of Relevant I have reviewed the following items elina (where applicable) has been applied. Labs Laboratory Tests Test 05/15/20 16:40 05/16/20 00:13 05/16/20 03:30 05/16/20 05:24 Glucose (Fingerstick) 144 mg/dL (70-99) 131 mg/dL (70-99) 141 mg/dL (70-99) Sodium Level 155 mmol/L (136-145) Potassium Level 3.8 mmol/L (3.5-5.1) Chloride Level 119 mmol/L (98-107) Carbon Dioxide Level 27 mmol/L (21-32) Anion Gap 9 (6-14) Blood Urea Nitrogen 51 mg/dL (8-26) Creatinine 1.1 mg/dL (0.7-1.3) Estimated GFR (Cockcroft-Gault) 68.5 Glucose Level 126 mg/dL (70-99) Calcium Level 9.1 mg/dL (8.5-10.1) Magnesium Level 2.5 mg/dL (1.8-2.4) Creatine Kinase 67 U/L (39-308) Test 05/16/20 09:50 05/16/20 12:14 05/16/20 18:08 05/16/20 23:41 White Blood Count 8.9 x10^3/uL (4.0-11.0) Red Blood Count 4.11 x10^6/uL (4.30-5.70) Hemoglobin 11.6 g/dL (13.0-17.5) Hematocrit 36.3 % (39.0-53.0) Mean Corpuscular Volume 88 fL (79-100) Mean Corpuscular Hemoglobin 28 pg (25-35) Mean Corpuscular Hemoglobin Concent 32 g/dL (31-37) Red Cell Distribution Width 20.2 % (11.5-14.5) Platelet Count 432 x10^3/uL (140-400) Neutrophils (%) (Auto) 74 % (31-73) Lymphocytes (%) (Auto) 16 % (24-48) Monocytes (%) (Auto) 8 % (0-9) Eosinophils (%) (Auto) 2 % (0-3) Basophils (%) (Auto) 1 % (0-3) Neutrophils # (Auto) 6.5 x10^3/uL (1.8-7.7) Lymphocytes # (Auto) 1.4 x10^3/uL (1.0-4.8) Monocytes # (Auto) 0.7 x10^3/uL (0.0-1.1) Eosinophils # (Auto) 0.1 x10^3/uL (0.0-0.7) Basophils # (Auto) 0.1 x10^3/uL (0.0-0.2) Glucose (Fingerstick) 124 mg/dL (70-99) 69 mg/dL (70-99) 41 mg/dL (70-99) Test 05/17/20 00:09 05/17/20 03:30 05/17/20 04:00 05/17/20 04:31 Glucose (Fingerstick) 90 mg/dL (70-99) 55 mg/dL (70-99) Sodium Level 160 mmol/L (136-145) Potassium Level 4.1 mmol/L (3.5-5.1) Chloride Level 124 mmol/L (98-107) Carbon Dioxide Level 27 mmol/L (21-32) Anion Gap 9 (6-14) Blood Urea Nitrogen 55 mg/dL (8-26) Creatinine 1.7 mg/dL (0.7-1.3) Estimated GFR (Cockcroft-Gault) 41.5 BUN/Creatinine Ratio 32 (6-20) Glucose Level 95 mg/dL (70-99) Lactic Acid Level 4.8 mmol/L (0.4-2.0) Calcium Level 9.1 mg/dL (8.5-10.1) Total Bilirubin 1.2 mg/dL (0.2-1.0) Aspartate Amino Transf (AST/SGOT) 42 U/L (15-37) Alanine Aminotransferase (ALT/SGPT) 36 U/L (16-63) Alkaline Phosphatase 147 U/L (46-116) Total Protein 7.8 g/dL (6.4-8.2) Albumin 1.5 g/dL (3.4-5.0) Albumin/Globulin Ratio 0.2 (1.0-1.7) White Blood Count 6.9 x10^3/uL (4.0-11.0) Red Blood Count 4.17 x10^6/uL (4.30-5.70) Hemoglobin 11.8 g/dL (13.0-17.5) Hematocrit 37.2 % (39.0-53.0) Mean Corpuscular Volume 89 fL (79-100) Mean Corpuscular Hemoglobin 28 pg (25-35) Mean Corpuscular Hemoglobin Concent 32 g/dL (31-37) Red Cell Distribution Width 20.4 % (11.5-14.5) Platelet Count 427 x10^3/uL (140-400) Neutrophils (%) (Auto) 74 % (31-73) Lymphocytes (%) (Auto) 15 % (24-48) Monocytes (%) (Auto) 10 % (0-9) Eosinophils (%) (Auto) 1 % (0-3) Basophils (%) (Auto) 1 % (0-3) Neutrophils # (Auto) 5.1 x10^3/uL (1.8-7.7) Lymphocytes # (Auto) 1.0 x10^3/uL (1.0-4.8) Monocytes # (Auto) 0.7 x10^3/uL (0.0-1.1) Eosinophils # (Auto) 0.0 x10^3/uL (0.0-0.7) Basophils # (Auto) 0.0 x10^3/uL (0.0-0.2) Test 05/17/20 04:46 05/17/20 06:37 05/17/20 08:40 05/17/20 08:58 Glucose (Fingerstick) 158 mg/dL (70-99) 88 mg/dL (70-99) Lactic Acid Level 1.7 mmol/L (0.4-2.0) O2 Saturation 96 % (92-99) Arterial Blood pH 7.29 (7.35-7.45) Arterial Blood pCO2 at Patient Temp 59 mmHg (35-46) Arterial Blood pO2 at Patient Temp 90 mmHg (65-108) Arterial Blood HCO3 28 mmol/L (21-28) Arterial Blood Base Excess 0 mmol/L (-3-3) FiO2 32 Test 05/17/20 09:34 05/17/20 10:44 Glucose (Fingerstick) 66 mg/dL (70-99) 96 mg/dL (70-99) Laboratory Tests Test 05/16/20 18:08 05/16/20 23:41 05/17/20 00:09 05/17/20 03:30 Glucose (Fingerstick) 69 mg/dL (70-99) 41 mg/dL (70-99) 90 mg/dL (70-99) Sodium Level 160 mmol/L (136-145) Potassium Level 4.1 mmol/L (3.5-5.1) Chloride Level 124 mmol/L (98-107) Carbon Dioxide Level 27 mmol/L (21-32) Anion Gap 9 (6-14) Blood Urea Nitrogen 55 mg/dL (8-26) Creatinine 1.7 mg/dL (0.7-1.3) Estimated GFR (Cockcroft-Gault) 41.5 BUN/Creatinine Ratio 32 (6-20) Glucose Level 95 mg/dL (70-99) Lactic Acid Level 4.8 mmol/L (0.4-2.0) Calcium Level 9.1 mg/dL (8.5-10.1) Total Bilirubin 1.2 mg/dL (0.2-1.0) Aspartate Amino Transf (AST/SGOT) 42 U/L (15-37) Alanine Aminotransferase (ALT/SGPT) 36 U/L (16-63) Alkaline Phosphatase 147 U/L (46-116) Total Protein 7.8 g/dL (6.4-8.2) Albumin 1.5 g/dL (3.4-5.0) Albumin/Globulin Ratio 0.2 (1.0-1.7) Test 05/17/20 04:00 05/17/20 04:31 05/17/20 04:46 05/17/20 06:37 White Blood Count 6.9 x10^3/uL (4.0-11.0) Red Blood Count 4.17 x10^6/uL (4.30-5.70) Hemoglobin 11.8 g/dL (13.0-17.5) Hematocrit 37.2 % (39.0-53.0) Mean Corpuscular Volume 89 fL (79-100) Mean Corpuscular Hemoglobin 28 pg (25-35) Mean Corpuscular Hemoglobin Concent 32 g/dL (31-37) Red Cell Distribution Width 20.4 % (11.5-14.5) Platelet Count 427 x10^3/uL (140-400) Neutrophils (%) (Auto) 74 % (31-73) Lymphocytes (%) (Auto) 15 % (24-48) Monocytes (%) (Auto) 10 % (0-9) Eosinophils (%) (Auto) 1 % (0-3) Basophils (%) (Auto) 1 % (0-3) Neutrophils # (Auto) 5.1 x10^3/uL (1.8-7.7) Lymphocytes # (Auto) 1.0 x10^3/uL (1.0-4.8) Monocytes # (Auto) 0.7 x10^3/uL (0.0-1.1) Eosinophils # (Auto) 0.0 x10^3/uL (0.0-0.7) Basophils # (Auto) 0.0 x10^3/uL (0.0-0.2) Glucose (Fingerstick) 55 mg/dL (70-99) 158 mg/dL (70-99) 88 mg/dL (70-99) Test 05/17/20 08:40 05/17/20 08:58 05/17/20 09:34 05/17/20 10:44 Lactic Acid Level 1.7 mmol/L (0.4-2.0) O2 Saturation 96 % (92-99) Arterial Blood pH 7.29 (7.35-7.45) Arterial Blood pCO2 at Patient Temp 59 mmHg (35-46) Arterial Blood pO2 at Patient Temp 90 mmHg (65-108) Arterial Blood HCO3 28 mmol/L (21-28) Arterial Blood Base Excess 0 mmol/L (-3-3) FiO2 32 Glucose (Fingerstick) 66 mg/dL (70-99) 96 mg/dL (70-99) Microbiology 05/15/20 Blood Culture - Preliminary, Resulted NO GROWTH AFTER 1 DAY 05/04/20 Urine Culture - Final, Complete 05/04/20 Antimicrobic Susceptibility - Final, Complete Medications Current Medications Sodium Chloride 1,000 ml @ 1,000 mls/hr 1X ONCE IV Last administered on 05/04/20at 11:32; Start 05/04/20 at 11:45; Stop 05/04/20 at 12:44; Status DC Ceftriaxone Sodium (Rocephin) 1 gm 1X ONCE IVP Last administered on 05/04/20at 11:33; Start 05/04/20 at 11:45; Stop 05/04/20 at 11:46; Status DC Norepinephrine Bitartrate 8 mg/ Dextrose 258 ml @ 35.314 mls/ hr CONT PRN IV PER PROTOCOL Last administered on 05/04/20at 17:00; Start 05/04/20 at 17:00; Stop 05/04/20 at 18:09; Status DC Naloxone HCl (Narcan) 0.4 mg 1X ONCE IV Last administered on 05/04/20at 17:00; Start 05/04/20 at 17:00; Stop 05/04/20 at 17:01; Status DC Propofol 0 ml @ As Directed STK-MED ONCE IV ; Start 05/04/20 at 17:20; Stop 05/04/20 at 17:20; Status DC Succinylcholine Chloride (Anectine) 200 mg STK-MED ONCE .ROUTE ; Start 05/04/20 at 17:20; Stop 05/04/20 at 17:20; Status DC Rocuronium [place] (Zemuron) 50 mg STK-MED ONCE .ROUTE ; Start 05/04/20 at 17:20; Stop 05/04/20 at 17:21; Status DC Etomidate (Amidate) 20 mg STK-MED ONCE IV ; Start 05/04/20 at 17:20; Stop 05/04/20 at 17:21; Status DC Sodium Bicarbonate 150 meq/Dextrose 1,150 ml @ 150 mls/hr Q7H40M IV Last administered on 05/06/20at 07:44; Start 05/04/20 at 18:30; Stop 05/06/20 at 16:49; Status DC Fentanyl Citrate 30 ml @ 0 mls/hr CONT PRN IV SEE PROTOCOL; Start 05/04/20 at 18:15; Stop 05/11/20 at 17:42; Status DC Midazolam HCl 100 ml @ 0 mls/hr CONT PRN IV SEE PROTOCOL Last administered on 05/06/20at 19:09; Start 05/04/20 at 18:15; Stop 05/11/20 at 17:42; Status DC Norepinephrine Bitartrate 32 mg/ Dextrose 282 ml @ 9.65 mls/hr CONT PRN IV PER PROTOCOL Last administered on 05/06/20at 14:08; Start 05/04/20 at 18:15; Stop 05/11/20 at 17:42; Status DC Piperacillin Sod/ Tazobactam Sod 2.25 gm/Sodium Chloride 50 ml @ 100 mls/hr Q6HRS IV Last administered on 05/06/20at 06:36; Start 05/05/20 at 08:00; Stop 05/06/20 at 08:39; Status DC Daptomycin 700 mg/ Sodium Chloride 50 ml @ 100 mls/hr Q48H IV Last administ ered on 05/05/20at 08:42; Start 05/05/20 at 09:00; Stop 05/06/20 at 09:09; Status DC Insulin Glargine (Lantus Syringe) 20 unit DAILY10 SQ Last administered on 05/05/20at 10:03; Start 05/05/20 at 10:00; Stop 05/06/20 at 09:08; Status DC Insulin Human Lispro (HumaLOG) 0-7 UNITS Q6HRS SQ Last administered on 05/14/20at 09:23; Start 05/05/20 at 12:00; Stop 05/17/20 at 10:23; Status DC Dextrose (Dextrose 50%-Water Syringe) 12.5 gm PRN Q15MIN PRN IV SEE COMMENTS Last administered on 05/17/20at 09:37; Start 05/05/20 at 09:15 Heparin Sodium (Porcine) (Heparin Sodium) 5,000 unit Q8HRS SQ Last administered on 05/17/20at 06:41; Start 05/05/20 at 14:00 Famotidine (Pepcid Vial) 20 mg QHS IVP Last administered on 05/08/20at 21:36; Start 05/05/20 at 21:00; Stop 05/09/20 at 10:18; Status DC Phenylephrine HCl (PHENYLEPHRINE in 0.9% NACL PF) 1 mg STK-MED ONCE IV ; Start 05/04/20 at 18:00; Stop 05/05/20 at 12:11; Status DC Etomidate (Amidate) 20 mg STK-MED ONCE IV ; Start 05/04/20 at 18:00; Stop 05/05/20 at 12:28; Status DC Rocuronium [place] (Zemuron) 50 mg STK-MED ONCE .ROUTE ; Start 05/04/20 at 18:00; Stop 05/05/20 at 12:28; Status DC Succinylcholine Chloride (Anectine) 200 mg STK-MED ONCE .ROUTE ; Start 05/04/20 at 18:00; Stop 05/05/20 at 12:28; Status DC Propofol (Diprivan) 1,000 mg STK-MED ONCE IV ; Start 05/04/20 at 18:00; Stop 05/05/20 at 12:28; Status DC Piperacillin Sod/ Tazobactam Sod 3.375 gm/Sodium Chloride 50 ml @ 100 mls/hr Q6HRS IV Last administered on 05/11/20at 05:31; Start 05/06/20 at 12:00; Stop 05/11/20 at 10:49; Status DC Insulin Glargine (Lantus Syringe) 40 unit DAILY10 SQ Last administered on 05/06/20at 09:37; Start 05/06/20 at 10:00; Stop 05/07/20 at 07:18; Status DC Fentanyl Citrate (Fentanyl 2ml Vial) 100 mcg STK-MED ONCE .ROUTE ; Start 05/06/20 at 11:35; Stop 05/06/20 at 11:35; Status DC Fentanyl Citrate (Fentanyl 2ml Vial) 50 mcg PRN Q2HR PRN IVP PAIN Last administered on 05/15/20at 10:48; Start 05/06/20 at 10:45 Insulin Glargine (Lantus Syringe) 60 unit DAILY SQ Last administered on 05/08/20at 09:01; Start 05/07/20 at 09:00; Stop 05/08/20 at 09:02; Status DC Fentanyl Citrate (Fentanyl 2ml Vial) 100 mcg STK-MED ONCE .ROUTE ; Start 05/06/20 at 11:40; Stop 05/07/20 at 08:51; Status DC Propofol 100 ml @ 5.247 mls/ hr CONT PRN IV PER PROTOCOL Last administered on 05/10/20at 06:17; Start 05/07/20 at 09:30; Stop 05/11/20 at 17:42; Status DC Insulin Glargine (Lantus Syringe) 90 unit DAILY SQ Last administered on 05/09/20at 08:22; Start 05/09/20 at 09:00; Stop 05/09/20 at 09:46; Status DC Insulin Glargine (Lantus Syringe) 30 unit 1X ONCE SQ Last administered on 05/08/20at 09:28; Start 05/08/20 at 09:30; Stop 05/08/20 at 09:31; Status DC Furosemide (Lasix) 40 mg 1X ONCE IVP Last administered on 05/08/20at 09:32; Start 05/08/20 at 10:00; Stop 05/08/20 at 10:01; Status DC Insulin Glargine (Lantus Syringe) 100 unit DAILY SQ ; Start 05/10/20 at 09:00; Stop 05/10/20 at 08:11; Status DC Pantoprazole Sodium (PROTONIX VIAL for IV PUSH) 40 mg DAILYAC IVP Last administered on 05/17/20at 09:41; Start 05/10/20 at 07:30 Furosemide (Lasix) 40 mg 1X ONCE IVP Last administered on 05/09/20at 11:09; Start 05/09/20 at 11:00; Stop 05/09/20 at 11:02; Status DC Hydralazine HCl (Apresoline Inj) 10 mg PRN Q4HRS PRN IVP ELEVATED BP, SEE COMMENTS Last administered on 05/09/20at 11:10; Start 05/09/20 at 11:15 Insulin Glargine (Lantus Syringe) 110 unit DAILY SQ Last administered on 05/16/20at 08:52; Start 05/10/20 at 09:00; Stop 05/17/20 at 10:23; Status DC Dexmedetomidine HCl 400 mcg/ Sodium Chloride 100 ml @ 0 mls/hr CONT PRN IV PER PROTOCOL Last administered on 05/11/20at 11:37; Start 05/10/20 at 10:30; Stop 05/11/20 at 17:42; Status DC Sodium Chloride 500 ml @ 500 mls/hr 1X PRN PRN IV SEE COMMENTS; Start 05/10/20 at 10:30; Stop 05/11/20 at 17:42; Status DC Atropine Sulfate (ATROPINE 0.5mg SYRINGE) 0.5 mg PRN Q5MIN PRN IV SEE COMMENTS; Start 05/10/20 at 10:30; Stop 05/11/20 at 17:42; Status DC Furosemide (Lasix) 40 mg 1X ONCE IVP Last administered on 05/10/20at 11:27; Start 05/10/20 at 11:00; Stop 05/10/20 at 11:01; Status DC Daptomycin 690 mg/ Sodium Chloride 50 ml @ 100 mls/hr Q24H IV Last administered on 05/10/20at 20:26; Start 05/10/20 at 20:00; Stop 05/11/20 at 10:49; Status DC Acetaminophen (Tylenol) 650 mg PRN Q6HRS PRN PEG MILD PAIN / TEMP > 100.3'F Last administered on 05/10/20at 20:20; Start 05/10/20 at 20:00 Meropenem 1 gm/ Sodium Chloride 100 ml @ 200 mls/hr Q8HRS IV Last administered on 05/15/20 05:07; Start 05/11/20 at 14:00; Stop 05/15/20 at 08:45; Status DC Dextrose 1,000 ml @ 50 mls/hr Q20H IV Last administered on 05/12/20at 19:34; Start 05/11/20 at 18:45; Stop 05/13/20 at 11:03; Status DC Furosemide (Lasix) 60 mg 1X ONCE IVP Last administered on 05/12/20at 10:35; Start 05/12/20 at 10:30; Stop 05/12/20 at 10:31; Status DC Potassium Chloride/Water 100 ml @ 100 mls/hr Q1H IV Last administered on 05/13/20 15:56; Start 05/13/20 at 12:00; Stop 05/13/20 at 13:59; Status DC Amino Acids/ Glycerin/ Electrolytes 1,000 ml @ 40 mls/hr Q24H IV Last administered on 05/17/20at 09:40; Start 05/13/20 at 11:15 Furosemide (Lasix) 80 mg BID94 IVP Last administered on 05/17/20 09:42; Start 05/13/20 at 11:15 Ceftriaxone Sodium (Rocephin) 2 gm Q24H IVP Last administered on 05/16/20 08:50; Start 05/15/20 at 09:00; Stop 05/17/20 at 07:34; Status DC Potassium Chloride/Water 100 ml @ 100 mls/hr Q1H IV Last administered on 05/15/20 14:09; Start 05/15/20 at 13:00; Stop 05/15/20 at 14:59; Status DC Acetaminophen (Tylenol Supp) 650 mg PRN Q6HRS PRN [place] MILD PAIN / TEMP > 100.3'F Last administered on 05/15/20at 14:38; Start 05/15/20 at 14:30 Daptomycin 700 mg/ Sodium Chloride 50 ml @ 100 mls/hr Q24H IV Last administered on 05/16/20at 15:40; Start 05/15/20 at 15:30 Micafungin Sodium 100 mg/Dextrose 100 ml @ 100 mls/hr Q24H IV Last administered on 3/14/21at 09:42; Start 05/16/20 at 08:00 Sodium Chloride 1,000 ml @ 1,000 mls/hr 1X ONCE IV Last administered on 05/17/20at 06:29; Start 05/17/20 at 06:30; Stop 05/17/20 at 07:29; Status DC Piperacillin Sod/ Tazobactam Sod (Zosyn Per Pharmacy) 1 each PRN DAILY PRN MC SEE COMMENTS; Start 05/17/20 at 07:30 Piperacillin Sod/ Tazobactam Sod 3.375 gm/Sodium Chloride 50 ml @ 100 mls/hr Q6HRS IV Last administered on 05/17/20at 09:42; Start 05/17/20 at 08:00 Dextrose 1,000 ml @ 40 mls/hr Q24H IV ; Start 05/17/20 at 11:45 Rocuronium [place] (Zemuron) 50 mg STK-MED ONCE .ROUTE ; Start 05/17/20 at 11 :57; Stop 05/17/20 at 11:57; Status DC Etomidate (Amidate) 20 mg STK-MED ONCE IV ; Start 05/17/20 at 11:57; Stop 05/17/20 at 11:58; Status DC Midazolam HCl (Versed) 5 mg STK-MED ONCE .ROUTE ; Start 05/17/20 at 12:25; Stop 05/17/20 at 12:25; Status DC Fentanyl Citrate 30 ml @ 0 mls/hr CONT PRN IV SEE PROTOCOL Last administered on 05/17/20at 12:49; Start 05/17/20 at 12:30 Fentanyl Citrate (Fentanyl 2ml Vial) 25 mcg PRN Q1HR PRN IV SEE COMMENTS; Start 05/17/20 at 12:30 Fentanyl Citrate (Fentanyl 2ml Vial) 50 mcg PRN Q1HR PRN IV SEE COMMENTS; Start 05/17/20 at 12:30 Chlorhexidine Gluconate (Peridex) 15 ml BID MM ; Start 05/17/20 at 21:00 Midazolam HCl 100 ml @ 0 mls/hr CONT PRN IV SEE PROTOCOL Last administered on 05/17/20at 12:51; Start 05/17/20 at 12:30 Etomidate (Amidate) 15 mg 1X ONCE IV Last administered on 05/17/20at 12:35; Start 05/17/20 at 12:30; Stop 05/17/20 at 12:31; Status DC Rocuronium [place] (Zemuron) 50 mg 1X ONCE IV Last administered on 05/17/20at 12:36; Start 05/17/20 at 12:30; Stop 05/17/20 at 12:31; Status DC Midazolam HCl (Versed) 5 mg 1X ONCE IV Last administered on 05/17/20at 12:33; Start 05/17/20 at 12:30; Stop 05/17/20 at 12:31; Status DC Active Scripts Active [Fluconazole] 100 MG Tablet 200 Mg PO DAILY 10 Days Amox Tr-K Clv 875-125 Mg Tab (Amoxicillin/Potassium Clav) 1 Each Tablet 1 Tab PO BID 10 Days Reported Hydrocodone-Acetamin 5-325 mg (Hydrocodone/Acetaminophen) 1 Each Tablet 1 Each PO PRN Q6HRS PRN Diclofenac Sodium 75 Mg Tablet.dr 1 Tab PO BID Amlodipine Besylate 5 Mg Tablet 5 Mg PO DAILY Furosemide 40 Mg Tablet 1 Tab PO DAILY Lisinopril 30 Mg Tablet 1 Tab PO DAILY Actos (Pioglitazone Hcl) 30 Mg Tablet 1 Tab PO DAILY Vitals/I & O Vital Sign - Last 24 Hours 05/16/20 05/16/20 05/17/20 05/17/20 15:00 20:01 04:30 05:02 Temp 97.4 100.3 97.4 100.3 Pulse 111 120 Resp 20 20 B/P (MAP) 130/67 (88) 138/77 (97) 152/47 (82) Pulse Ox 94 95 95 O2 Delivery Room Air Room Air NonRebreather Mask Venturi Mask O2 Flow Rate 15.0 05/17/20 05/17/20 05/17/20 05/17/20 07:00 08:00 10:54 12:11 Temp 101.1 101.1 Pulse 103 Resp 16 B/P (MAP) 112/62 (79) Pulse Ox 96 87 100 O2 Delivery Nasal Cannula Nasal Cannula BiPAP/CPAP Ventilator O2 Flow Rate 2.0 5.0 05/17/20 05/17/20 12:45 12:49 Resp 16 B/P (MAP) Pulse Ox 100 O2 Delivery Ventilator Intake and Output 05/16/20 05/16/20 05/17/20 15:00 23:00 07:00 Intake Total 0 ml 0 ml Output Total 2000 ml 450 ml Balance -2000 ml 0 ml -[address] without contrast. There is no acute or subacute extra-axial or intraparenchymal hemorrhage. There is no mass effect or midline shift. There is no hydrocephalus. There are areas of decreased attenuation within the cerebral white matter, nonspecific and likely related to chronic small vessel disease. The visualized portions of the orbits, paranasal sinuses and mastoid air cells are unremarkable. No suspicious calvarial lesion is seen. IMPRESSION: 1. No acute intracranial finding. Note is made that MRI is more sensitive for acute infarction. 2. Bilateral cerebral white matter changes, likely due to chronic small vessel disease. Justicifation of Admission Dx: Justifications for Admission: Justification of Admission Dx: N/A VERO GOMEZ MD May 17, 2020 12:54
[2020-05-17] MEDS: NOREPINEPHRINE VIAL 8 MG in IV DEXTROSE 5% 250 ML IV PRN ×2 (13:10→22:20)
[2020-05-17 13:13] LABS: BASE EXCESS ABG 3 mmol/L (-3-3); HCO3 ABG 30 mmol/L (21-28); PO2 ABG 86 mmHg (65-108); SAT O2 ABG 95 % (92-99)
[2020-05-17 13:14] LABS: PCO2 ABG 60 mmHg (35-46)
[2020-05-17] MEDS ORDERED: IV NORMAL SALINE 1000ML BAG 1,000 ML IV ONE (13:30)
[2020-05-17] MEDS: DAPTOMYCIN IV SCH (14:56)
[2020-05-17] MEDS: NORMAL SALINE IV SCH (14:56)
--- NOTE | 2020-05-17 16:00 | NUR ---
Patient transfer from [address] [place] [id number] Arechiga to intubate. Patient intubated at 1210. Placed on AC 16/600/5/40%. Arterial line placed, patient hypotensive, 1 liter bolus administered. Patient did not respond to bolus, started Levophed at 0.1 mc/kg/min. Map now greater than 65, and stable. Dr Phipps and family notified of patient transfer. Will monitor.
--- NOTE | 2020-05-17 16:06 | PN ---
DATE: 05/17/2020 LOCATION: He is in room 674. SUBJECTIVE: The patient is awake, alert, remains mentally obtunded, but is shaking head, yes or no appropriately. Had a rapid response during the night for hypoglycemia, was found to have an elevated lactic acid, was given a liter of fluids with resolution of the same, was also found to have sodium increased further to 160 and Lasix will be put on hold. Creatinine also has bumped up to 1.7 and feel like he is getting intravascularly dehydrated. Renal is following along with help sort this out. OBJECTIVE: VITAL SIGNS: Stable. He continues to run fevers about 101.1 this morning. CHEST: Reveals good breath sounds. HEART: Regular. ABDOMEN: Benign. He is mildly tachycardic. Laboratory carreno includes hypoglycemia. He has had the creatinine up to 1.7. Sodium 160. Lactic acid of 4.8 this morning, which is decreased to 1.7. This morning's blood gas showed respiratory acidosis with a pH of 7.29 and pO2 of 59. I have asked Pulmonary to revisit regarding this. IMPRESSION: 1. Viral sepsis with Escherichia coli with recurrent positive blood cultures despite good antibiotic therapy likely related to kidney stone. He had a repeat CT this morning showing ongoing left proximal ureteral calculus unchanged in position without any definite hydronephrosis. He had CT head also done with obtundation from the hypoglycemia showing no acute changes. 2. Diabetes with hypoglycemia. Insulin has been discontinued and will be held. 3. Hypoventilation with respiratory acidosis this morning and I have discussed with Pulmonary and likely will need some BiPAP. 4. Ongoing confusion, likely multifactorial related to the CO2 as well as the fevers 5. Recurrent blood cultures from 2 days ago are still negative. PLAN: Ongoing supportive care. I have spoke with the nursing supervisor firearms about transfer to [facility] for dealing with this left ureteral kidney stone, which I think is probably the biggest part of ongoing process with him at this point in time. He continues to be dysphagic, but likely lot of this is related to the confusion, which again is multifactorial. BUSTER LEMONS MD DR: JAZIEL/helene JOB#: [id number] / [id number]
[2020-05-17] MEDS: CHLORHEXIDINE 0.12% 15 ML MOUTHWASH. MM SCH (21:00)
[2020-05-18] VITALS (15 sets, daily range): BP systolic 84–133; BP diastolic 48–70
[2020-05-18 05:29] LABS: BASO # 0.1 x10^3/uL (0.0-0.2); BASO % 1 % (0-3); EOS # 0.1 x10^3/uL (0.0-0.7); EOS % 2 % (0-3); HEMATOCRIT 32.8 % (39.0-53.0); HEMOGLOBIN 10.5 g/dL (13.0-17.5); LYMPH # 2.1 x10^3/uL (1.0-4.8); LYMPH % 28 % (24-48); MEAN CORPUSCULAR HEMOGLOBIN 28 pg (25-35); MEAN CORPUSCULAR HGB CONC 32 g/dL (31-37); MEAN CORPUSCULAR VOLUME 88 fL (79-100); MONO # 0.7 x10^3/uL (0.0-1.1); MONO % 9 % (0-9); NEUT # 4.3 x10^3/uL (1.8-7.7); NEUT % 60 % (31-73); PLATELET COUNT 394 x10^3/uL (140-400); RED BLOOD COUNT 3.72 x10^6/uL (4.30-5.70); RED CELL DISTRIBUTION WIDTH 19.8 % (11.5-14.5); WHITE BLOOD COUNT 7.3 x10^3/uL (4.0-11.0)
[2020-05-18 05:53] LABS: ALBUMIN 1.3 g/dL (3.4-5.0); ALBUMIN/GLOBULIN RATIO 0.2 (1.0-1.7); CALCIUM 8.2 mg/dL (8.5-10.1); CREATININE 1.4 mg/dL (0.7-1.3); GFR 51.9; POTASSIUM 3.2 mmol/L (3.5-5.1); TOTAL BILIRUBIN 1.3 mg/dL (0.2-1.0); TOTAL PROTEIN 6.8 g/dL (6.4-8.2)
[2020-05-18] MEDS: PIPERACILLIN/TAZOBACTAM 3.375 GM in IV NORMAL SALINE 50ML 50 ML IV SCH (06:05)
[2020-05-18] MEDS: HEPARIN for SUB-Q USE 5,000 UNIT/ML VIAL. SQ SCH (06:13)
[2020-05-18 07:40] LABS: BASE EXCESS ABG 4 mmol/L (-3-3); HCO3 ABG 28 mmol/L (21-28); PCO2 ABG 39 mmHg (35-46); PO2 ABG 83 mmHg (65-108); SAT O2 ABG 96 % (92-99)
[2020-05-18 07:48] LABS: FIO2 ABG 40%+5
[2020-05-18] MEDS: MICAFUNGIN 100 MG in IV DEXTROSE 5% 100ML 100 ML IV SCH (07:54)
[2020-05-18] MEDS: FUROSEMIDE 40 MG/4 ML VIAL. IVP SCH (07:54)
[2020-05-18] MEDS: PANTOPRAZOLE IV PUSH 40 MG VIAL. IVP SCH (07:54)
[2020-05-18] MEDS: CHLORHEXIDINE 0.12% 15 ML MOUTHWASH. MM SCH (07:54)
--- NOTE | 2020-05-18 08:13 | PDOC ---
Infectious Disease Note Subjective: Subjective Pt was transferred to ICU for resp failure s/p intubation on low dose pressors low grade fevers d/w RN Vital Signs: Vital Signs Vital Signs Date Time Temp Pulse Resp B/P (MAP) Pulse Ox O2 Delivery O2 Flow Rate FiO2 05/18/20 07:55 20 96 Ventilator 05/18/20 06:30 107/60 (76) 05/18/20 06:00 70 05/18/20 04:00 99.8 99.8 05/17/20 08:00 5.0 Physical Exam: PHYSICAL EXAM GENERAL intubated, opens eyes transiently HEENT: Both pupils are round and reacting. ETT + NECK: Supple, LUNGS: Decreased breath sounds. HEART: S1, S2 ABDOMEN: Soft, Obese, BS + : Duggan in place EXTREMITIES: trace edema or cyanosis. SKIN: no gen rash NEUROLOGIC: intubated, opens eyes PIVs and EJ looks clean Medications: Inpatient Meds: Medications reviewed. Labs: Lab Laboratory Tests Test 05/17/20 08:40 05/17/20 08:58 05/17/20 09:34 05/17/20 10:44 Lactic Acid Level 1.7 mmol/L (0.4-2.0) O2 Saturation 96 % (92-99) Arterial Blood pH 7.29 (7.35-7.45) Arterial Blood pCO2 at Patient Temp 59 mmHg (35-46) Arterial Blood pO2 at Patient Temp 90 mmHg (65-108) Arterial Blood HCO3 28 mmol/L (21-28) Arterial Blood Base Excess 0 mmol/L (-3-3) FiO2 32 Glucose (Fingerstick) 66 mg/dL (70-99) 96 mg/dL (70-99) Test 05/17/20 12:55 05/17/20 13:00 05/17/20 23:41 05/18/20 05:00 Glucose (Fingerstick) 86 mg/dL (70-99) 141 mg/dL (70-99) O2 Saturation 95 % (92-99) Arterial Blood pH 7.32 (7.35-7.45) Arterial Blood pCO2 at Patient Temp 60 mmHg (35-46) Arterial Blood pO2 at Patient Temp 86 mmHg (65-108) Arterial Blood HCO3 30 mmol/L (21-28) Arterial Blood Base Excess 3 mmol/L (-3-3) FiO2 40/vent White Blood Count 7.3 x10^3/uL (4.0-11.0) Red Blood Count 3.72 x10^6/uL (4.30-5.70) Hemoglobin 10.5 g/dL (13.0-17.5) Hematocrit 32.8 % (39.0-53.0) Mean Corpuscular Volume 88 fL (79-100) Mean Corpuscular Hemoglobin 28 pg (25-35) Mean Corpuscular Hemoglobin Concent 32 g/dL (31-37) Red Cell Distribution Width 19.8 % (11.5-14.5) Platelet Count 394 x10^3/uL (140-400) Neutrophils (%) (Auto) 60 % (31-73) Lymphocytes (%) (Auto) 28 % (24-48) Monocytes (%) (Auto) 9 % (0-9) Eosinophils (%) (Auto) 2 % (0-3) Basophils (%) (Auto) 1 % (0-3) Neutrophils # (Auto) 4.3 x10^3/uL (1.8-7.7) Lymphocytes # (Auto) 2.1 x10^3/uL (1.0-4.8) Monocytes # (Auto) 0.7 x10^3/uL (0.0-1.1) Eosinophils # (Auto) 0.1 x10^3/uL (0.0-0.7) Basophils # (Auto) 0.1 x10^3/uL (0.0-0.2) Sodium Level 159 mmol/L (136-145) Potassium Level 3.2 mmol/L (3.5-5.1) Chloride Level 122 mmol/L (98-107) Carbon Dioxide Level 26 mmol/L (21-32) Anion Gap 11 (6-14) Blood Urea Nitrogen 57 mg/dL (8-26) Creatinine 1.4 mg/dL (0.7-1.3) Estimated GFR (Cockcroft-Gault) 51.9 BUN/Creatinine Ratio 41 (6-20) Glucose Level 165 mg/dL (70-99) Calcium Level 8.2 mg/dL (8.5-10.1) Total Bilirubin 1.3 mg/dL (0.2-1.0) Aspartate Amino Transf (AST/SGOT) 44 U/L (15-37) Alanine Aminotransferase (ALT/SGPT) 34 U/L (16-63) Alkaline Phosphatase 117 U/L (46-116) Total Protein 6.8 g/dL (6.4-8.2) Albumin 1.3 g/dL (3.4-5.0) Albumin/Globulin Ratio 0.2 (1.0-1.7) Test 05/18/20 07:30 O2 Saturation 96 % (92-99) Arterial Blood pH 7.47 (7.35-7.45) Arterial Blood pCO2 at Patient Temp 39 mmHg (35-46) Arterial Blood pO2 at Patient Temp 83 mmHg (65-108) Arterial Blood HCO3 28 mmol/L (21-28) Arterial Blood Base Excess 4 mmol/L (-3-3) FiO2 40%+5 Objective: Assessment: E coli bacteremia recurrent source UTI with sepsis 7 mm ureteral stone at renal pelvic ureteral junction, no hydronephrosis Fever pattern improved ? Thrush Acute hypoxic resp failure s/p reintubation Leukopenia, from sepsis , now leukocytosis now resolved Encephalopathy Hyponatremia., Acute kidney injury ,Rhabdomyolysis Circulatory failure. Obesity. COVID neg Plan: Plan of Care Cont Zosyn, changed 05/17 Cont micafungin for now Cont daptomycin for now F/U BC neg since 05/15 Team is planning for transfer to center with Urology Continue supportive care. Monitor labs in am D/w nursing WILI POST MD May 18, 2020 08:13
--- NOTE | 2020-05-18 09:07 | PDOC ---
DATE OF SERVICE DATE: 05/18/20 TIME: 09:06 SUBJECTIVE ROS Pt was transferred to ICU for resp failure,s/p intubation.on low dose pressors l OBJECTIVE Vital Signs Vital Signs Date Time Temp Pulse Resp B/P (MAP) Pulse Ox O2 Delivery O2 Flow Rate FiO2 05/18/20 08:00 Mechanical Ventilator 05/18/20 08:00 78 127/59 (81) 05/18/20 08:00 98.8 20 95 98.8 05/17/20 08:00 5.0 I & 0 Intake and Output 05/18/20 07:00 Intake Total 1733 ml Output Total 2860 ml Balance -1127 ml Intake Oral 0 ml IV Total 1733 ml Output Urine Total 2860 ml PHYSICAL EXAM Physical Exam GENERAL intubated, HEENT: Both pupils are round and reacting. ETT + NECK: Supple, LUNGS: Decreased breath sounds. HEART: S1, S2 ABDOMEN: Soft, Obese, BS + : Duggan in place EXTREMITIES: trace edema or cyanosis. SKIN: no gen rash NEUROLOGIC: intubated, opens eyes DIAGNOSIS/ASSESSMENT Assessment & Plan AUGUSTINE- 2/2 Sepsis, Improving renal function HyperNatremia- Continue D5 W, dw nursing HypoKlaemia - replace as needed E coli bacteremia recurrent source -Plan to transfer him to a facility with Urology per Primary team UTI with sepsis- On Abx Calculus - 7 mm ureteral stone at renal pelvic ureteral junction, no hydronephrosis Acute hypoxic resp failure s/p reintubation Encephalopathy COMMENT/RELEVANT DATA Meds Current Medications Medications (Trade) Dose Ordered Sig/Triny Start Time Stop Time Status Last Admin Dose Admin Acetaminophen (Tylenol Supp) 650 mg PRN Q6HRS PRN 05/15/20 14:30 05/15/20 14:38 650 MG Acetaminophen (Tylenol) 650 mg PRN Q6HRS PRN 05/10/20 20:00 05/10/20 20:20 650 MG Amino Acids/ Glycerin/ Electrolytes 1,000 ml @ 40 mls/hr Q24H 05/13/20 11:15 05/17/20 15:50 40 MLS/HR Atropine Sulfate (ATROPINE 0.5mg SYRINGE) 0.5 mg PRN Q5MIN PRN 05/10/20 10:30 05/11/20 17:42 DC Ceftriaxone Sodium (Rocephin) 2 gm Q24H 05/15/20 09:00 05/17/20 07:34 DC 05/16/20 08:50 2 GM Chlorhexidine Gluconate (Peridex) 15 ml BID 05/17/20 21:00 05/18/20 07:54 15 ML Daptomycin 690 mg/ Sodium Chloride 50 ml @ 100 mls/hr Q24H 05/10/20 20:00 05/11/20 10:49 DC 05/10/20 20:26 100 MLS/HR Daptomycin 700 mg/ Sodium Chloride 50 ml @ 100 mls/hr Q24H 05/15/20 15:30 05/17/20 14:56 100 MLS/HR Dexmedetomidine HCl 400 mcg/ Sodium Chloride 100 ml @ 0 mls/hr CONT PRN 05/10/20 10:30 05/11/20 17:42 DC 05/11/20 11:37 22.4 MLS/HR Dextrose 1,000 ml @ 40 mls/hr Q24H 05/17/20 11:45 05/17/20 12:58 40 MLS/HR Dextrose (Dextrose 50%-Water Syringe) 12.5 gm PRN Q15MIN PRN 05/05/20 09:15 05/17/20 09:37 12.5 GM Etomidate (Amidate) 15 mg 1X ONCE 05/17/20 12:30 05/17/20 12:31 DC 05/17/20 12:35 15 MG Famotidine (Pepcid Vial) 20 mg QHS 05/05/20 21:00 05/09/20 10:18 DC 05/08/20 21:36 20 MG Fentanyl Citrate (Fentanyl 2ml Vial) 50 mcg PRN Q1HR PRN 05/17/20 12:30 Furosemide (Lasix) 80 mg [id number] 05/13/20 11:15 05/18/20 07:54 80 MG Heparin Sodium (Porcine) (Heparin Sodium) 5,000 unit Q8HRS 05/05/20 14:00 05/18/20 06:13 5,000 UNIT Hydralazine HCl (Apresoline Inj) 10 mg PRN Q4HRS PRN 05/09/20 11:15 05/09/20 11:10 10 MG Insulin Glargine (Lantus Syringe) 110 unit DAILY 05/10/20 09:00 05/17/20 10:23 DC 05/16/20 08:52 110 UNIT Insulin Human Lispro (HumaLOG) 0-7 UNITS Q6HRS 05/05/20 12:00 05/17/20 10:23 DC 05/14/20 09:23 2 UNITS Meropenem 1 gm/ Sodium Chloride 100 ml @ 200 mls/hr Q8HRS 05/11/20 14:00 05/15/20 08:45 DC 05/15/20 05:07 200 MLS/HR Micafungin Sodium 100 mg/Dextrose 100 ml @ 100 mls/hr Q24H 05/16/20 08:00 05/18/20 07:54 100 MLS/HR Midazolam HCl (Versed) 5 mg 1X ONCE 05/17/20 12:30 05/17/20 12:31 DC 05/17/20 12:33 5 MG Naloxone HCl (Narcan) 0.4 mg 1X ONCE 05/04/20 17:00 05/04/20 17:01 DC 05/04/20 17:00 0.4 MG Norepinephrine Bitartrate 32 mg/ Dextrose 282 ml @ 9.65 mls/hr CONT PRN 05/04/20 18:15 05/11/20 17:42 DC 05/06/20 14:08 12.6 MLS/HR Norepinephrine Bitartrate 8 mg/ Dextrose 258 ml @ 30.786 mls/ hr CONT PRN 05/17/20 13:00 05/17/20 22:20 9.236 MLS/HR Pantoprazole Sodium (PROTONIX VIAL for IV PUSH) 40 mg DAILYAC 05/10/20 07:30 05/18/20 07:54 40 MG Phenylephrine HCl (PHENYLEPHRINE in 0.9% NACL PF) 1 mg STK-MED ONCE 05/04/20 18:00 05/05/20 12:11 DC Piperacillin Sod/ Tazobactam Sod (Zosyn Per Pharmacy) 1 each PRN DAILY PRN 05/17/20 07:30 Piperacillin Sod/ Tazobactam Sod 2.25 gm/Sodium Chloride 50 ml @ 100 mls/hr Q6HRS 05/05/20 08:00 05/06/20 08:39 DC 05/06/20 06:36 100 MLS/HR Piperacillin Sod/ Tazobactam Sod 3.375 gm/Sodium Chloride 50 ml @ 100 mls/hr Q6HRS 05/17/20 08:00 05/18/20 06:05 100 MLS/HR Potassium Chloride/Water 100 ml @ 100 mls/hr Q1H 05/15/20 13:00 05/15/20 14:59 DC 05/15/20 14:09 100 MLS/HR Propofol 100 ml @ 5.247 mls/ hr CONT PRN 05/07/20 09:30 05/11/20 17:42 DC 05/10/20 06:17 36.729 MLS/HR Propofol (Diprivan) 1,000 mg STK-MED ONCE 05/04/20 18:00 05/05/20 12:28 DC Rocuronium [place] (Zemuron) 50 mg 1X ONCE 05/17/20 12:30 05/17/20 12:31 DC 05/17/20 12:36 50 MG Sodium Bicarbonate 150 meq/Dextrose 1,150 ml @ 150 mls/hr Q7H40M 05/04/20 18:30 05/06/20 16:49 DC 05/06/20 07:44 150 MLS/HR Sodium Chloride 1,000 ml @ 1,000 mls/hr 1X ONCE 05/17/20 13:30 05/17/20 14:29 DC 05/17/20 14:06 1,000 MLS/HR Succinylcholine Chloride (Anectine) 200 mg STK-MED ONCE 05/04/20 18:00 05/05/20 12:28 DC Lab Laboratory Tests Test 05/17/20 09:34 05/17/20 10:44 05/17/20 12:55 05/17/20 13:00 Glucose (Fingerstick) 66 mg/dL (70-99) 96 mg/dL (70-99) 86 mg/dL (70-99) O2 Saturation 95 % (92-99) Arterial Blood pH 7.32 (7.35-7.45) Arterial Blood pCO2 at Patient Temp 60 mmHg (35-46) Arterial Blood pO2 at Patient Temp 86 mmHg (65-108) Arterial Blood HCO3 30 mmol/L (21-28) Arterial Blood Base Excess 3 mmol/L (-3-3) FiO2 40/vent Test 05/17/20 23:41 05/18/20 05:00 05/18/20 07:30 Glucose (Fingerstick) 141 mg/dL (70-99) White Blood Count 7.3 x10^3/uL (4.0-11.0) Red Blood Count 3.72 x10^6/uL (4.30-5.70) Hemoglobin 10.5 g/dL (13.0-17.5) Hematocrit 32.8 % (39.0-53.0) Mean Corpuscular Volume 88 fL (79-100) Mean Corpuscular Hemoglobin 28 pg (25-35) Mean Corpuscular Hemoglobin Concent 32 g/dL (31-37) Red Cell Distribution Width 19.8 % (11.5-14.5) Platelet Count 394 x10^3/uL (140-400) Neutrophils (%) (Auto) 60 % (31-73) Lymphocytes (%) (Auto) 28 % (24-48) Monocytes (%) (Auto) 9 % (0-9) Eosinophils (%) (Auto) 2 % (0-3) Basophils (%) (Auto) 1 % (0-3) Neutrophils # (Auto) 4.3 x10^3/uL (1.8-7.7) Lymphocytes # (Auto) 2.1 x10^3/uL (1.0-4.8) Monocytes # (Auto) 0.7 x10^3/uL (0.0-1.1) Eosinophils # (Auto) 0.1 x10^3/uL (0.0-0.7) Basophils # (Auto) 0.1 x10^3/uL (0.0-0.2) Sodium Level 159 mmol/L (136-145) Potassium Level 3.2 mmol/L (3.5-5.1) Chloride Level 122 mmol/L (98-107) Carbon Dioxide Level 26 mmol/L (21-32) Anion Gap 11 (6-14) Blood Urea Nitrogen 57 mg/dL (8-26) Creatinine 1.4 mg/dL (0.7-1.3) Estimated GFR (Cockcroft-Gault) 51.9 BUN/Creatinine Ratio 41 (6-20) Glucose Level 165 mg/dL (70-99) Calcium Level 8.2 mg/dL (8.5-10.1) Total Bilirubin 1.3 mg/dL (0.2-1.0) Aspartate Amino Transf (AST/SGOT) 44 U/L (15-37) Alanine Aminotransferase (ALT/SGPT) 34 U/L (16-63) Alkaline Phosphatase 117 U/L (46-116) Total Protein 6.8 g/dL (6.4-8.2) Albumin 1.3 g/dL (3.4-5.0) Albumin/Globulin Ratio 0.2 (1.0-1.7) O2 Saturation 96 % (92-99) Arterial Blood pH 7.47 (7.35-7.45) Arterial Blood pCO2 at Patient Temp 39 mmHg (35-46) Arterial Blood pO2 at Patient Temp 83 mmHg (65-108) Arterial Blood HCO3 28 mmol/L (21-28) Arterial Blood Base Excess 4 mmol/L (-3-3) FiO2 40%+5 Results All relevant outside records, renal labs, imaging studies, telemetry/EKG's were reviewed. Justicifation of Admission Dx: Justifications for Admission: Justification of Admission Dx: N/A LEYDI MOSLEY MD May 18, 2020 09:06
--- NOTE | 2020-05-18 09:29 | PN ---
DATE: 05/18/2020 DAILY PROGRESS NOTE LOCATION: He is in room ICU 102. SUBJECTIVE: This 60-year-old white male remains hospitalized with sepsis due to E. coli urinary tract infection with bacteremia. The patient deteriorated respiratory carreno yesterday, necessitating reintubation. He is back in the ICU on mechanical ventilation, low doses of pressors. We were attempting Urology transfer to [facility], but was aborted due to his deterioration. OBJECTIVE: VITAL SIGNS: His blood pressures in the 90-100 range on very low dose norepinephrine this morning. He is mildly tachycardic at 105. He is on 40% FiO2 with 5 of PEEP with this morning's blood gases not showing any more CO2 retention. T-max is around 100 over the last 24 hours. CHEST: Clear. HEART: Regular. ABDOMEN: Benign. NEUROLOGIC: Sedate, on a ventilator. LABORATORY DATA: Creatinine is decreased to 1.4 this morning. Sodium is still high at 159, potassium 3.2 and I will defer to Renal as far as adjustments here. He has received at least 2-3 liters of fluid resuscitation in the last 24 hours and lab carreno what appeared to still be fairly dry. White count is normal at 7300 with a normal differential. IMPRESSION: 1. Escherichia coli sepsis with what appeared to be renal source with obstructing kidney stone with likely renal collecting system above this full of pus. 2. Hypertension. 3. Respiratory failure. 4. Acute kidney injury, which is improved since admission. 5. Diabetes with no further hypoglycemia in the last 24 hours. PLAN: Continue supportive care nursing supervisor [place] to continue to work on transfer outside facility for Urology evaluation and treatment of obstructing ureteral calculus. If this is unable, I would think that a nephrostomy tube may need to be placed to compress the area. Help of all consultants appreciated. BUSTER LEMONS MD DR: JAZIEL/helene JOB#: [id number] / [id number]
--- NOTE | 2020-05-18 10:02 | PDOC ---
PROGRESS NOTES Date of Service DATE: 05/18/20 TIME: 09:59 Assessment Problems Medical Problems: (1) Acute kidney failure Status: Acute (2) Altered mental status Status: Acute (3) Hyperkalemia Status: Acute (4) Hyperuricemia Status: Acute (5) Lymphopenia Status: Acute (6) Respiratory failure with hypoxia Status: Acute Metabolic encephalopathy Respiratory faliure re-intubated 05/17. A little bit of myoclonus Renal failure, respiratory failure, E-Coli sepsis, rhabdomyolysis, leukopenia, acute kidney injury, COVID neg Dysphagia after first extubation on 05/11 Plan Hold on EEG, unlikely to affect management as he is on benzodiazepine sedation anyway Treat medical diseases Subjective None Objective Vital Signs Date Time Temp Pulse Resp B/P (MAP) Pulse Ox O2 Delivery O2 Flow Rate FiO2 05/18/20 09:00 80 20 133/60 (84) 96 Ventilator 05/18/20 08:00 98.8 98.8 05/17/20 08:00 5.0 Intake and Output 05/18/20 07:00 Intake Total 1733 ml Output Total 2860 ml Balance -1127 ml Intake Oral 0 ml IV Total 1733 ml Output Urine Total 2860 ml PHYSICAL EXAM Intubated and sedated Few twitching movements of arms PERRL. EOMI. CN: no focal findings. Muscle tone: normal. Muscle strength: Minimal withdrawal to pain DTR: 0+ Plantar reflex: Flexor Gait: not examined in bed. Sensory exam: Not testable. Cerebellar: Not testable Review of Relevant I have reviewed the following items elina (where applicable) has been applied. Labs Laboratory Tests Test 05/16/20 12:14 05/16/20 18:08 05/16/20 23:41 05/17/20 00:09 Glucose (Fingerstick) 124 mg/dL (70-99) 69 mg/dL (70-99) 41 mg/dL (70-99) 90 mg/dL (70-99) Test 05/17/20 03:30 05/17/20 04:00 05/17/20 04:31 05/17/20 04:46 Sodium Level 160 mmol/L (136-145) Potassium Level 4.1 mmol/L (3.5-5.1) Chloride Level 124 mmol/L (98-107) Carbon Dioxide Level 27 mmol/L (21-32) Anion Gap 9 (6-14) Blood Urea Nitrogen 55 mg/dL (8-26) Creatinine 1.7 mg/dL (0.7-1.3) Estimated GFR (Cockcroft-Gault) 41.5 BUN/Creatinine Ratio 32 (6-20) Glucose Level 95 mg/dL (70-99) Lactic Acid Level 4.8 mmol/L (0.4-2.0) Calcium Level 9.1 mg/dL (8.5-10.1) Total Bilirubin 1.2 mg/dL (0.2-1.0) Aspartate Amino Transf (AST/SGOT) 42 U/L (15-37) Alanine Aminotransferase (ALT/SGPT) 36 U/L (16-63) Alkaline Phosphatase 147 U/L (46-116) Total Protein 7.8 g/dL (6.4-8.2) Albumin 1.5 g/dL (3.4-5.0) Albumin/Globulin Ratio 0.2 (1.0-1.7) White Blood Count 6.9 x10^3/uL (4.0-11.0) Red Blood Count 4.17 x10^6/uL (4.30-5.70) Hemoglobin 11.8 g/dL (13.0-17.5) Hematocrit 37.2 % (39.0-53.0) Mean Corpuscular Volume 89 fL (79-100) Mean Corpuscular Hemoglobin 28 pg (25-35) Mean Corpuscular Hemoglobin Concent 32 g/dL (31-37) Red Cell Distribution Width 20.4 % (11.5-14.5) Platelet Count 427 x10^3/uL (140-400) Neutrophils (%) (Auto) 74 % (31-73) Lymphocytes (%) (Auto) 15 % (24-48) Monocytes (%) (Auto) 10 % (0-9) Eosinophils (%) (Auto) 1 % (0-3) Basophils (%) (Auto) 1 % (0-3) Neutrophils # (Auto) 5.1 x10^3/uL (1.8-7.7) Lymphocytes # (Auto) 1.0 x10^3/uL (1.0-4.8) Monocytes # (Auto) 0.7 x10^3/uL (0.0-1.1) Eosinophils # (Auto) 0.0 x10^3/uL (0.0-0.7) Basophils # (Auto) 0.0 x10^3/uL (0.0-0.2) Glucose (Fingerstick) 55 mg/dL (70-99) 158 mg/dL (70-99) Test 05/17/20 06:37 05/17/20 08:40 05/17/20 08:58 05/17/20 09:34 Glucose (Fingerstick) 88 mg/dL (70-99) 66 mg/dL (70-99) Lactic Acid Level 1.7 mmol/L (0.4-2.0) O2 Saturation 96 % (92-99) Arterial Blood pH 7.29 (7.35-7.45) Arterial Blood pCO2 at Patient Temp 59 mmHg (35-46) Arterial Blood pO2 at Patient Temp 90 mmHg (65-108) Arterial Blood HCO3 28 mmol/L (21-28) Arterial Blood Base Excess 0 mmol/L (-3-3) FiO2 32 Test 05/17/20 10:44 05/17/20 12:55 05/17/20 13:00 05/17/20 23:41 Glucose (Fingerstick) 96 mg/dL (70-99) 86 mg/dL (70-99) 141 mg/dL (70-99) O2 Saturation 95 % (92-99) Arterial Blood pH 7.32 (7.35-7.45) Arterial Blood pCO2 at Patient Temp 60 mmHg (35-46) Arterial Blood pO2 at Patient Temp 86 mmHg (65-108) Arterial Blood HCO3 30 mmol/L (21-28) Arterial Blood Base Excess 3 mmol/L (-3-3) FiO2 40/vent Test 05/18/20 05:00 05/18/20 07:30 White Blood Count 7.3 x10^3/uL (4.0-11.0) Red Blood Count 3.72 x10^6/uL (4.30-5.70) Hemoglobin 10.5 g/dL (13.0-17.5) Hematocrit 32.8 % (39.0-53.0) Mean Corpuscular Volume 88 fL (79-100) Mean Corpuscular Hemoglobin 28 pg (25-35) Mean Corpuscular Hemoglobin Concent 32 g/dL (31-37) Red Cell Distribution Width 19.8 % (11.5-14.5) Platelet Count 394 x10^3/uL (140-400) Neutrophils (%) (Auto) 60 % (31-73) Lymphocytes (%) (Auto) 28 % (24-48) Monocytes (%) (Auto) 9 % (0-9) Eosinophils (%) (Auto) 2 % (0-3) Basophils (%) (Auto) 1 % (0-3) Neutrophils # (Auto) 4.3 x10^3/uL (1.8-7.7) Lymphocytes # (Auto) 2.1 x10^3/uL (1.0-4.8) Monocytes # (Auto) 0.7 x10^3/uL (0.0-1.1) Eosinophils # (Auto) 0.1 x10^3/uL (0.0-0.7) Basophils # (Auto) 0.1 x10^3/uL (0.0-0.2) Sodium Level 159 mmol/L (136-145) Potassium Level 3.2 mmol/L (3.5-5.1) Chloride Level 122 mmol/L (98-107) Carbon Dioxide Level 26 mmol/L (21-32) Anion Gap 11 (6-14) Blood Urea Nitrogen 57 mg/dL (8-26) Creatinine 1.4 mg/dL (0.7-1.3) Estimated GFR (Cockcroft-Gault) 51.9 BUN/Creatinine Ratio 41 (6-20) Glucose Level 165 mg/dL (70-99) Calcium Level 8.2 mg/dL (8.5-10.1) Total Bilirubin 1.3 mg/dL (0.2-1.0) Aspartate Amino Transf (AST/SGOT) 44 U/L (15-37) Alanine Aminotransferase (ALT/SGPT) 34 U/L (16-63) Alkaline Phosphatase 117 U/L (46-116) Total Protein 6.8 g/dL (6.4-8.2) Albumin 1.3 g/dL (3.4-5.0) Albumin/Globulin Ratio 0.2 (1.0-1.7) O2 Saturation 96 % (92-99) Arterial Blood pH 7.47 (7.35-7.45) Arterial Blood pCO2 at Patient Temp 39 mmHg (35-46) Arterial Blood pO2 at Patient Temp 83 mmHg (65-108) Arterial Blood HCO3 28 mmol/L (21-28) Arterial Blood Base Excess 4 mmol/L (-3-3) FiO2 40%+5 Laboratory Tests Test 05/17/20 10:44 05/17/20 12:55 05/17/20 13:00 05/17/20 23:41 Glucose (Fingerstick) 96 mg/dL (70-99) 86 mg/dL (70-99) 141 mg/dL (70-99) O2 Saturation 95 % (92-99) Arterial Blood pH 7.32 (7.35-7.45) Arterial Blood pCO2 at Patient Temp 60 mmHg (35-46) Arterial Blood pO2 at Patient Temp 86 mmHg (65-108) Arterial Blood HCO3 30 mmol/L (21-28) Arterial Blood Base Excess 3 mmol/L (-3-3) FiO2 40/vent Test 05/18/20 05:00 05/18/20 07:30 White Blood Count 7.3 x10^3/uL (4.0-11.0) Red Blood Count 3.72 x10^6/uL (4.30-5.70) Hemoglobin 10.5 g/dL (13.0-17.5) Hematocrit 32.8 % (39.0-53.0) Mean Corpuscular Volume 88 fL (79-100) Mean Corpuscular Hemoglobin 28 pg (25-35) Mean Corpuscular Hemoglobin Concent 32 g/dL (31-37) Red Cell Distribution Width 19.8 % (11.5-14.5) Platelet Count 394 x10^3/uL (140-400) Neutrophils (%) (Auto) 60 % (31-73) Lymphocytes (%) (Auto) 28 % (24-48) Monocytes (%) (Auto) 9 % (0-9) Eosinophils (%) (Auto) 2 % (0-3) Basophils (%) (Auto) 1 % (0-3) Neutrophils # (Auto) 4.3 x10^3/uL (1.8-7.7) Lymphocytes # (Auto) 2.1 x10^3/uL (1.0-4.8) Monocytes # (Auto) 0.7 x10^3/uL (0.0-1.1) Eosinophils # (Auto) 0.1 x10^3/uL (0.0-0.7) Basophils # (Auto) 0.1 x10^3/uL (0.0-0.2) Sodium Level 159 mmol/L (136-145) Potassium Level 3.2 mmol/L (3.5-5.1) Chloride Level 122 mmol/L (98-107) Carbon Dioxide Level 26 mmol/L (21-32) Anion Gap 11 (6-14) Blood Urea Nitrogen 57 mg/dL (8-26) Creatinine 1.4 mg/dL (0.7-1.3) Estimated GFR (Cockcroft-Gault) 51.9 BUN/Creatinine Ratio 41 (6-20) Glucose Level 165 mg/dL (70-99) Calcium Level 8.2 mg/dL (8.5-10.1) Total Bilirubin 1.3 mg/dL (0.2-1.0) Aspartate Amino Transf (AST/SGOT) 44 U/L (15-37) Alanine Aminotransferase (ALT/SGPT) 34 U/L (16-63) Alkaline Phosphatase 117 U/L (46-116) Total Protein 6.8 g/dL (6.4-8.2) Albumin 1.3 g/dL (3.4-5.0) Albumin/Globulin Ratio 0.2 (1.0-1.7) O2 Saturation 96 % (92-99) Arterial Blood pH 7.47 (7.35-7.45) Arterial Blood pCO2 at Patient Temp 39 mmHg (35-46) Arterial Blood pO2 at Patient Temp 83 mmHg (65-108) Arterial Blood HCO3 28 mmol/L (21-28) Arterial Blood Base Excess 4 mmol/L (-3-3) FiO2 40%+5 Microbiology 05/17/20 Blood Culture - Preliminary, Resulted NO GROWTH AFTER 1 DAY 05/04/20 Urine Culture - Final, Complete 05/04/20 Antimicrobic Susceptibility - Final, Complete Medications Current Medications Sodium Chloride 1,000 ml @ 1,000 mls/hr 1X ONCE IV Last administered on 05/04/20at 11:32; Start 05/04/20 at 11:45; Stop 05/04/20 at 12:44; Status DC Ceftriaxone Sodium (Rocephin) 1 gm 1X ONCE IVP Last administered on 05/04/20at 11:33; Start 05/04/20 at 11:45; Stop 05/04/20 at 11:46; Status DC Norepinephrine Bitartrate 8 mg/ Dextrose 258 ml @ 35.314 mls/ hr CONT PRN IV PER PROTOCOL Last administered on 05/04/20at 17:00; Start 05/04/20 at 17:00; Stop 05/04/20 at 18:09; Status DC Naloxone HCl (Narcan) 0.4 mg 1X ONCE IV Last administered on 05/04/20at 17:00; Start 05/04/20 at 17:00; Stop 05/04/20 at 17:01; Status DC Propofol 0 ml @ As Directed STK-MED ONCE IV ; Start 05/04/20 at 17:20; Stop 05/04/20 at 17:20; Status DC Succinylcholine Chloride (Anectine) 200 mg STK-MED ONCE .ROUTE ; Start 05/04/20 at 17:20; Stop 05/04/20 at 17:20; Status DC Rocuronium [place] (Zemuron) 50 mg STK-MED ONCE .ROUTE ; Start 05/04/20 at 17:20; Stop 05/04/20 at 17:21; Status DC Etomidate (Amidate) 20 mg STK-MED ONCE IV ; Start 05/04/20 at 17:20; Stop 05/04/20 at 17:21; Status DC Sodium Bicarbonate 150 meq/Dextrose 1,150 ml @ 150 mls/hr Q7H40M IV Last administered on 05/06/20at 07:44; Start 05/04/20 at 18:30; Stop 05/06/20 at 16:49; Status DC Fentanyl Citrate 30 ml @ 0 mls/hr CONT PRN IV SEE PROTOCOL; Start 05/04/20 at 18:15; Stop 05/11/20 at 17:42; Status DC Midazolam HCl 100 ml @ 0 mls/hr CONT PRN IV SEE PROTOCOL Last administered on 05/06/20at 19:09; Start 05/04/20 at 18:15; Stop 05/11/20 at 17:42; Status DC Norepinephrine Bitartrate 32 mg/ Dextrose 282 ml @ 9.65 mls/hr CONT PRN IV PER PROTOCOL Last administered on 05/06/20at 14:08; Start 05/04/20 at 18:15; Stop 05/11/20 at 17:42; Status DC Piperacillin Sod/ Tazobactam Sod 2.25 gm/Sodium Chloride 50 ml @ 100 mls/hr Q6HRS IV Last administered on 05/06/20at 06:36; Start 05/05/20 at 08:00; Stop 05/06/20 at 08:39; Status DC Daptomycin 700 mg/ Sodium Chloride 50 ml @ 100 mls/hr Q48H IV Last administered on 05/05/20at 08:42; Start 05/05/20 at 09:00; Stop 05/06/20 at 09:09; Status DC Insulin Glargine (Lantus Syringe) 20 unit DAILY10 SQ Last administered on 05/05/20at 10:03; Start 05/05/20 at 10:00; Stop 05/06/20 at 09:08; Status DC Insulin Human Lispro (HumaLOG) 0-7 UNITS Q6HRS SQ Last administered on 05/14/20at 09:23; Start 05/05/20 at 12:00; Stop 05/17/20 at 10:23; Status DC Dextrose (Dextrose 50%-Water Syringe) 12.5 gm PRN Q15MIN PRN IV SEE COMMENTS Last administered on 05/17/20at 09:37; Start 05/05/20 at 09:15 Heparin Sodium (Porcine) (Heparin Sodium) 5,000 unit Q8HRS SQ Last administered on 05/18/20at 06:13; Start 05/05/20 at 14:00 Famotidine (Pepcid Vial) 20 mg QHS IVP Last administered on 05/08/20at 21:36; Start 05/05/20 at 21:00; Stop 05/09/20 at 10:18; Status DC Phenylephrine HCl (PHENYLEPHRINE in 0.9% NACL PF) 1 mg STK-MED ONCE IV ; Start 05/04/20 at 18:00; Stop 05/05/20 at 12:11; Status DC Etomidate (Amidate) 20 mg STK-MED ONCE IV ; Start 05/04/20 at 18:00; Stop 05/05/20 at 12:28; Status DC Rocuronium [place] (Zemuron) 50 mg STK-MED ONCE .ROUTE ; Start 05/04/20 at 18:00; Stop 05/05/20 at 12:28; Status DC Succinylcholine Chloride (Anectine) 200 mg STK-MED ONCE .ROUTE ; Start 05/04/20 at 18:00; Stop 05/05/20 at 12:28; Status DC Propofol (Diprivan) 1,000 mg STK-MED ONCE IV ; Start 05/04/20 at 18:00; Stop 05/05/20 at 12:28; Status DC Piperacillin Sod/ Tazobactam Sod 3.375 gm/Sodium Chloride 50 ml @ 100 mls/hr Q6HRS IV Last administered on 05/11/20at 05:31; Start 05/06/20 at 12:00; Stop 05/11/20 at 10:49; Status DC Insulin Glargine (Lantus Syringe) 40 unit DAILY10 SQ Last administered on 05/06/20at 09:37; Start 05/06/20 at 10:00; Stop 05/07/20 at 07:18; Status DC Fentanyl Citrate (Fentanyl 2ml Vial) 100 mcg STK-MED ONCE .ROUTE ; Start 05/06/20 at 11:35; Stop 05/06/20 at 11:35; Status DC Fentanyl Citrate (Fentanyl 2ml Vial) 50 mcg PRN Q2HR PRN IVP PAIN Last administered on 05/15/20at 10:48; Start 05/06/20 at 10:45 Insulin Glargine (Lantus Syringe) 60 unit DAILY SQ Last administered on 05/08/20at 09:01; Start 05/07/20 at 09:00; Stop 05/08/20 at 09:02; Status DC Fentanyl Citrate (Fentanyl 2ml Vial) 100 mcg STK-MED ONCE .ROUTE ; Start 05/06/20 at 11:40; Stop 05/07/20 at 08:51; Status DC Propofol 100 ml @ 5.247 mls/ hr CONT PRN IV PER PROTOCOL Last administered on 05/10/20at 06:17; Start 05/07/20 at 09:30; Stop 05/11/20 at 17:42; Status DC Insulin Glargine (Lantus Syringe) 90 unit DAILY SQ Last administered on 05/09/20at 08:22; Start 05/09/20 at 09:00; Stop 05/09/20 at 09:46; Status DC Insulin Glargine (Lantus Syringe) 30 unit 1X ONCE SQ Last administered on 05/08/20at 09:28; Start 05/08/20 at 09:30; Stop 05/08/20 at 09:31; Status DC Furosemide (Lasix) 40 mg 1X ONCE IVP Last administered on 05/08/20at 09:32; Start 05/08/20 at 10:00; Stop 05/08/20 at 10:01; Status DC Insulin Glargine (Lantus Syringe) 100 unit DAILY SQ ; Start 05/10/20 at 09:00; Stop 05/10/20 at 08:11; Status DC Pantoprazole Sodium (PROTONIX VIAL for IV PUSH) 40 mg DAILYAC IVP Last adm inistered on 05/18/20at 07:54; Start 05/10/20 at 07:30 Furosemide (Lasix) 40 mg 1X ONCE IVP Last administered on 05/09/20at 11:09; Start 05/09/20 at 11:00; Stop 05/09/20 at 11:02; Status DC Hydralazine HCl (Apresoline Inj) 10 mg PRN Q4HRS PRN IVP ELEVATED BP, SEE COMMENTS Last administered on 05/09/20at 11:10; Start 05/09/20 at 11:15 Insulin Glargine (Lantus Syringe) 110 unit DAILY SQ Last administered on 05/16/20at 08:52; Start 05/10/20 at 09:00; Stop 05/17/20 at 10:23; Status DC Dexmedetomidine HCl 400 mcg/ Sodium Chloride 100 ml @ 0 mls/hr CONT PRN IV PER PROTOCOL Last administered on 05/11/20at 11:37; Start 05/10/20 at 10:30; Stop 05/11 at 17:42; Status DC Sodium Chloride 500 ml @ 500 mls/hr 1X PRN PRN IV SEE COMMENTS; Start 05/10/20 at 10:30; Stop 05/11/20 at 17:42; Status DC Atropine Sulfate (ATROPINE 0.5mg SYRINGE) 0.5 mg PRN Q5MIN PRN IV SEE COMMENTS; Start 05/10/20 at 10:30; Stop 05/11/20 at 17:42; Status DC Furosemide (Lasix) 40 mg 1X ONCE IVP Last administered on 05/10/20at 11:27; Start 05/10/20 at 11:00; Stop 05/10/20 at 11:01; Status DC Daptomycin 690 mg/ Sodium Chloride 50 ml @ 100 mls/hr Q24H IV Last administered on 05/10/20at 20:26; Start 05/10/20 at 20:00; Stop 05/11/20 at 10:49; Status DC Acetaminophen (Tylenol) 650 mg PRN Q6HRS PRN PEG MILD PAIN / TEMP > 100.3'F Last administered on 05/10/20at 20:20; Start 05/10/20 at 20:00 Meropenem 1 gm/ Sodium Chloride 100 ml @ 200 mls/hr Q8HRS IV Last administered on 05/15/20at 05:07; Start 05/11/20 at 14:00; Stop 05/15/20 at 08:45; Status DC Dextrose 1,000 ml @ 50 mls/hr Q20H IV Last administered on 05/12/20at 19:34; Start 05/11/20 at 18:45; Stop 05/13/20 at 11:03; Status DC Furosemide (Lasix) 60 mg 1X ONCE IVP Last administered on 05/12/20at 10:35; Start 05/12/20 at 10:30; Stop 05/12/20 at 10:31; Status DC Potassium Chloride/Water 100 ml @ 100 mls/hr Q1H IV Last administered on 05/13/20at 15:56; Start 05/13/20 at 12:00; Stop 05/13/20 at 13:59; Status DC Amino Acids/ Glycerin/ Electrolytes 1,000 ml @ 40 mls/hr Q24H IV Last administered on 05/17/20at 15:50; Start 05/13/20 at 11:15 Furosemide (Lasix) 80 mg BID94 IVP Last administered on 05/18/20at 07:54; Start 05/13/20 at 11:15 Ceftriaxone Sodium (Rocephin) 2 gm Q24H IVP Last administered on 05/16/20at 08:50; Start 05/15/20 at 09:00; Stop 05/17/20 at 07:34; Status DC Potassium Chloride/Water 100 ml @ 100 mls/hr Q1H IV Last administered on 05/15/20at 14:09; Start 05/15/20 at 13:00; Stop 05/15/20 at 14:59; Status DC Acetaminophen (Tylenol Supp) 650 mg PRN Q6HRS PRN ND MILD PAIN / TEMP > 100.3'F Last administered on 05/15/20at 14:38; Start 05/15/20 at 14:30 Daptomycin 700 mg/ Sodium Chloride 50 ml @ 100 mls/hr Q24H IV Last administered on 05/17/20at 14:56; Start 05/15/20 at 15:30 Micafungin Sodium 100 mg/Dextrose 100 ml @ 100 mls/hr Q24H IV Last administered on 05/18/20at 07:54; Start 05/16/20 at 08:00 Sodium Chloride 1,000 ml @ 1,000 mls/hr 1X ONCE IV Last administered on 05/17/20at 06:29; Start 05/17/20 at 06:30; Stop 05/17/20 at 07:29; Status DC Piperacillin Sod/ Tazobactam Sod (Zosyn Per Pharmacy) 1 each PRN DAILY PRN MC SEE COMMENTS; Start 05/17/20 at 07:30 Piperacillin Sod/ Tazobactam Sod 3.375 gm/Sodium Chloride 50 ml @ 100 mls/hr Q6HRS IV Last administered on 05/18/20at 06:05; Start 05/17/20 at 08:00 Dextrose 1,000 ml @ 40 mls/hr Q24H IV Last administered on 05/17/20at 12:58; Start 05/17/20 at 11:45 Rocuronium [place] (Zemuron) 50 mg STK-MED ONCE .ROUTE ; Start 05/17/20 at 11: 57; Stop 05/17/20 at 11:57; Status DC Etomidate (Amidate) 20 mg STK-MED ONCE IV ; Start 05/17/20 at 11:57; Stop 05/17/20 at 11:58; Status DC Midazolam HCl (Versed) 5 mg STK-MED ONCE .ROUTE ; Start 05/17/20 at 12:25; Stop 05/17/20 at 12:25; Status DC Fentanyl Citrate 30 ml @ 0 mls/hr CONT PRN IV SEE PROTOCOL Last administered on 05/18/20at 07:55; Start 05/17/20 at 12:30 Fentanyl Citrate (Fentanyl 2ml Vial) 25 mcg PRN Q1HR PRN IV SEE COMMENTS; Start 05/17/20 at 12:30 Fentanyl Citrate (Fentanyl 2ml Vial) 50 mcg PRN Q1HR PRN IV SEE COMMENTS; Start 05/17/20 at 12:30 Chlorhexidine Gluconate (Peridex) 15 ml BID MM Last administered on 05/18/20at 07:54; Start 05/17/20 at 21:00 Midazolam HCl 100 ml @ 0 mls/hr CONT PRN IV SEE PROTOCOL Last administered on 05/17/20at 21:38; Start 05/17/20 at 12:30 Etomidate (Amidate) 15 mg 1X ONCE IV Last administered on 05/17/20at 12:35; Start 05/17/20 at 12:30; Stop 05/17/20 at 12:31; Status DC Rocuronium [place] (Zemuron) 50 mg 1X ONCE IV Last administered on 05/17/20at 12:36; Start 05/17/20 at 12:30; Stop 05/17/20 at 12:31; Status DC Midazolam HCl (Versed) 5 mg 1X ONCE IV Last administered on 05/17/20at 12:33; Start 05/17/20 at 12:30; Stop 05/17/20 at 12:31; Status DC Norepinephrine Bitartrate 8 mg/ Dextrose 258 ml @ 30.786 mls/ hr CONT PRN IV PER PROTOCOL Last administered on 05/17/20at 22:20; Start 05/17/20 at 13:00 Sodium Chloride 1,000 ml @ 1,000 mls/hr 1X ONCE IV Last administered on 05/17/20at 14:06; Start 05/17/20 at 13:30; Stop 05/17/20 at 14:29; Status DC Active Scripts Active [Fluconazole] 100 MG Tablet 200 Mg PO DAILY 10 Days Amox Tr-K Clv 875-125 Mg Tab (Amoxicillin/Potassium Clav) 1 Each Tablet 1 Tab PO BID 10 Days Reported Hydrocodone-Acetamin 5-325 mg (Hydrocodone/Acetaminophen) 1 Each Tablet 1 Each PO PRN Q6HRS PRN Diclofenac Sodium 75 Mg Tablet.dr 1 Tab PO BID Amlodipine Besylate 5 Mg Tablet 5 Mg PO DAILY Furosemide 40 Mg Tablet 1 Tab PO DAILY Lisinopril 30 Mg Tablet 1 Tab PO DAILY Actos (Pioglitazone Hcl) 30 Mg Tablet 1 Tab PO DAILY Vitals/I & O Vital Sign - Last 24 Hours 05/17/20 05/17/20 05/17/20 05/17/20 10:54 11:45 12:00 12:00 Temp 100.8 100.8 Pulse 106 106 Resp 20 20 B/P (MAP) 84/50 (61) 80/54 (63) Pulse Ox 87 97 97 O2 Delivery BiPAP/CPAP BiPAP/CPAP BiPAP/CPAP Mechanical Ventilator 05/17/20 05/17/20 05/17/20 05/17/20 12:11 12:15 12:30 12:45 Pulse 102 100 Resp 16 16 B/P (MAP) 99/50 (66) 76/42 (53) Pulse Ox 100 97 96 O2 Delivery Ventilator Ventilator Ventilator 05/17/20 05/17/20 05/17/20 05/17/20 12:45 12:49 13:00 13:15 Pulse 96 94 94 Resp 16 16 16 B/P (MAP) 81/44 (56) 84/36 (52) 136/54 (81) Pulse Ox 93 100 90 O2 Delivery Ventilator Ventilator Ventilator 05/17/20 05/17/20 05/17/20 05/17/20 13:19 13:30 13:45 14:00 Pulse 110 80 80 Resp 20 16 B/P (MAP) 132/56 (81) 130/54 (79) 124/52 (76) Pulse Ox 99 99 O2 Delivery Ventilator Ventilator 05/17/20 05/17/20 05/17/20 05/17/20 15:00 15:00 15:42 16:00 Temp 101.0 101.0 Pulse 72 69 70 Resp 20 16 16 B/P (MAP) 104/64 (77) 118/52 (74) 113/54 (73) Pulse Ox 98 99 98 98 O2 Delivery Ventilator Ventilator Ventilator Ventilator 05/17/20 05/17/20 05/17/20 05/17/20 16:00 16:00 16:00 16:00 Temp 99.1 99.1 Pulse 72 70 Resp 20 20 B/P (MAP) 151/72 (98) 132/52 (78) Pulse Ox 98 97 O2 Delivery Mechanical Ventilator Ventilator Ventilator 05/17/20 05/17/20 05/17/20 05/17/20 17:00 18:00 19:00 20:00 Pulse 70 79 68 Resp 20 20 20 B/P (MAP) 76/53 (61) 77/47 (57) 131/57 (81) Pulse Ox 98 98 98 O2 Delivery Ventilator Ventilator Ventilator 05/17/20 05/17/20 05/17/20 05/17/20 20:00 20:00 20:15 20:21 Temp 100.0 100.0 Pulse 75 Resp 20 B/P (MAP) 128/57 (80) 116/56 (76) Pulse Ox 97 97 O2 Delivery Ventilator Mechanical Ventilator Ventilator 05/17/20 05/17/20 05/17/20 05/17/20 20:30 20:45 21:00 21:15 Pulse 81 Resp 20 B/P (MAP) 112/51 (71) 101/53 (69) 105/55 (72) 92/49 (63) Pulse Ox 96 O2 Delivery Ventilator 05/17/20 05/17/20 05/17/20 05/17/20 22:00 23:00 23:54 23:54 Pulse 86 77 Resp 20 20 B/P (MAP) 80/49 (59) 90/54 (66) Pulse Ox 96 97 O2 Delivery Ventilator Ventilator Mechanical Ventilator 05/18/20 05/18/20 05/18/20 05/18/20 00:00 00:20 00:45 01:00 Temp 100.0 100.0 Pulse 76 77 Resp 20 20 B/P (MAP) 99/57 (71) 115/54 (74) 100/53 (69) Pulse Ox 97 97 97 O2 Delivery Ventilator Ventilator Ventilator 05/18/20 05/18/20 05/18/20 05/18/20 02:00 03:00 03:59 04:00 Pulse 78 73 Resp 20 20 B/P (MAP) 98/48 (65) 84/55 (65) Pulse Ox 97 99 98 O2 Delivery Ventilator Ventilator Ventilator Mechanical Ventilator 05/18/20 05/18/20 05/18/20 05/18/20 04:00 04:00 05:00 06:00 Temp 99.8 99.8 Pulse 77 71 70 Resp 20 20 20 B/P (MAP) 91/57 (68) 105/50 (68) 99/50 (66) Pulse Ox 98 97 97 O2 Delivery Ventilator Ventilator Ventilator 05/18/20 05/18/20 05/18/20 05/18/20 06:15 06:30 07:29 07:55 Resp 20 B/P (MAP) 126/56 (79) 107/60 (76) Pulse Ox 97 96 O2 Delivery Ventilator Ventilator 05/18/20 05/18/20 05/18/20 05/18/20 08:00 08:00 08:00 08:25 Temp 98.8 98.8 Pulse 70 78 Resp 20 20 B/P (MAP) 118/60 (79) 127/59 (81) Pulse Ox 95 95 O2 Delivery Ventilator Mechanical Ventilator Ventilator 05/18/20 09:00 Pulse 80 Resp 20 B/P (MAP) 133/60 (84) Pulse Ox 96 O2 Delivery Ventilator Intake and Output 05/17/20 05/17/20 05/18/20 15:00 23:00 07:00 Intake Total 0 ml 598 ml 1135 ml Output Total 800 ml 1165 ml 895 ml Balance -800 ml -567 ml 240 ml Justicifation of Admission Dx: Justifications for Admission: Justification of Admission Dx: N/A VERO GOMEZ MD May 18, 2020 10:02
[2020-05-18] MEDS: MIDAZOLAM 100mg/100ml NS BAG 100 ML IV PRN (10:31)
--- NOTE | 2020-05-18 11:20 | PDOC ---
PULMONARY PROGRESS NOTES DATE: 05/18/20 TIME: 11:16 Subjective Pt failed BiPAP., intubated 05/17 AC mode Vitals Vital Signs Date Time Temp Pulse Resp B/P (MAP) Pulse Ox O2 Delivery O2 Flow Rate FiO2 05/18/20 11:00 84 20 119/69 (86) 93 Ventilator 05/18/20 08:00 98.8 98.8 05/17/20 08:00 5.0 Lungs: Other (b lat diminished bs ) Cardiovascular: S1, S2 Abdomen: Soft, Non-tender, Other (obese) Extremities: Other (2+edema) Skin: Warm Labs Laboratory Tests Test 05/16/20 12:14 05/16/20 18:08 05/16/20 23:41 05/17/20 00:09 Glucose (Fingerstick) 124 mg/dL (70-99) 69 mg/dL (70-99) 41 mg/dL (70-99) 90 mg/dL (70-99) Test 05/17/20 03:30 05/17/20 04:00 05/17/20 04:31 05/17/20 04:46 Sodium Level 160 mmol/L (136-145) Potassium Level 4.1 mmol/L (3.5-5.1) Chloride Level 124 mmol/L (98-107) Carbon Dioxide Level 27 mmol/L (21-32) Anion Gap 9 (6-14) Blood Urea Nitrogen 55 mg/dL (8-26) Creatinine 1.7 mg/dL (0.7-1.3) Estimated GFR (Cockcroft-Gault) 41.5 BUN/Creatinine Ratio 32 (6-20) Glucose Level 95 mg/dL (70-99) Lactic Acid Level 4.8 mmol/L (0.4-2.0) Calcium Level 9.1 mg/dL (8.5-10.1) Total Bilirubin 1.2 mg/dL (0.2-1.0) Aspartate Amino Transf (AST/SGOT) 42 U/L (15-37) Alanine Aminotransferase (ALT/SGPT) 36 U/L (16-63) Alkaline Phosphatase 147 U/L (46-116) Total Protein 7.8 g/dL (6.4-8.2) Albumin 1.5 g/dL (3.4-5.0) Albumin/Globulin Ratio 0.2 (1.0-1.7) White Blood Count 6.9 x10^3/uL (4.0-11.0) Red Blood Count 4.17 x10^6/uL (4.30-5.70) Hemoglobin 11.8 g/dL (13.0-17.5) Hematocrit 37.2 % (39.0-53.0) Mean Corpuscular Volume 89 fL (79-100) Mean Corpuscular Hemoglobin 28 pg (25-35) Mean Corpuscular Hemoglobin Concent 32 g/dL (31-37) Red Cell Distribution Width 20.4 % (11.5-14.5) Platelet Count 427 x10^3/uL (140-400) Neutrophils (%) (Auto) 74 % (31-73) Lymphocytes (%) (Auto) 15 % (24-48) Monocytes (%) (Auto) 10 % (0-9) Eosinophils (%) (Auto) 1 % (0-3) Basophils (%) (Auto) 1 % (0-3) Neutrophils # (Auto) 5.1 x10^3/uL (1.8-7.7) Lymphocytes # (Auto) 1.0 x10^3/uL (1.0-4.8) Monocytes # (Auto) 0.7 x10^3/uL (0.0-1.1) Eosinophils # (Auto) 0.0 x10^3/uL (0.0-0.7) Basophils # (Auto) 0.0 x10^3/uL (0.0-0.2) Glucose (Fingerstick) 55 mg/dL (70-99) 158 mg/dL (70-99) Test 05/17/20 06:37 05/17/20 08:40 05/17/20 08:58 05/17/20 09:34 Glucose (Fingerstick) 88 mg/dL (70-99) 66 mg/dL (70-99) Lactic Acid Level 1.7 mmol/L (0.4-2.0) O2 Saturation 96 % (92-99) Arterial Blood pH 7.29 (7.35-7.45) Arterial Blood pCO2 at Patient Temp 59 mmHg (35-46) Arterial Blood pO2 at Patient Temp 90 mmHg (65-108) Arterial Blood HCO3 28 mmol/L (21-28) Arterial Blood Base Excess 0 mmol/L (-3-3) FiO2 32 Test 05/17/20 10:44 05/17/20 12:55 05/17/20 13:00 05/17/20 23:41 Glucose (Fingerstick) 96 mg/dL (70-99) 86 mg/dL (70-99) 141 mg/dL (70-99) O2 Saturation 95 % (92-99) Arterial Blood pH 7.32 (7.35-7.45) Arterial Blood pCO2 at Patient Temp 60 mmHg (35-46) Arterial Blood pO2 at Patient Temp 86 mmHg (65-108) Arterial Blood HCO3 30 mmol/L (21-28) Arterial Blood Base Excess 3 mmol/L (-3-3) FiO2 40/vent Test 05/18/20 05:00 05/18/20 07:30 White Blood Count 7.3 x10^3/uL (4.0-11.0) Red Blood Count 3.72 x10^6/uL (4.30-5.70) Hemoglobin 10.5 g/dL (13.0-17.5) Hematocrit 32.8 % (39.0-53.0) Mean Corpuscular Volume 88 fL (79-100) Mean Corpuscular Hemoglobin 28 pg (25-35) Mean Corpuscular Hemoglobin Concent 32 g/dL (31-37) Red Cell Distribution Width 19.8 % (11.5-14.5) Platelet Count 394 x10^3/uL (140-400) Neutrophils (%) (Auto) 60 % (31-73) Lymphocytes (%) (Auto) 28 % (24-48) Monocytes (%) (Auto) 9 % (0-9) Eosinophils (%) (Auto) 2 % (0-3) Basophils (%) (Auto) 1 % (0-3) Neutrophils # (Auto) 4.3 x10^3/uL (1.8-7.7) Lymphocytes # (Auto) 2.1 x10^3/uL (1.0-4.8) Monocytes # (Auto) 0.7 x10^3/uL (0.0-1.1) Eosinophils # (Auto) 0.1 x10^3/uL (0.0-0.7) Basophils # (Auto) 0.1 x10^3/uL (0.0-0.2) Sodium Level 159 mmol/L (136-145) Potassium Level 3.2 mmol/L (3.5-5.1) Chloride Level 122 mmol/L (98-107) Carbon Dioxide Level 26 mmol/L (21-32) Anion Gap 11 (6-14) Blood Urea Nitrogen 57 mg/dL (8-26) Creatinine 1.4 mg/dL (0.7-1.3) Estimated GFR (Cockcroft-Gault) 51.9 BUN/Creatinine Ratio 41 (6-20) Glucose Level 165 mg/dL (70-99) Calcium Level 8.2 mg/dL (8.5-10.1) Total Bilirubin 1.3 mg/dL (0.2-1.0) Aspartate Amino Transf (AST/SGOT) 44 U/L (15-37) Alanine Aminotransferase (ALT/SGPT) 34 U/L (16-63) Alkaline Phosphatase 117 U/L (46-116) Total Protein 6.8 g/dL (6.4-8.2) Albumin 1.3 g/dL (3.4-5.0) Albumin/Globulin Ratio 0.2 (1.0-1.7) O2 Saturation 96 % (92-99) Arterial Blood pH 7.47 (7.35-7.45) Arterial Blood pCO2 at Patient Temp 39 mmHg (35-46) Arterial Blood pO2 at Patient Temp 83 mmHg (65-108) Arterial Blood HCO3 28 mmol/L (21-28) Arterial Blood Base Excess 4 mmol/L (-3-3) FiO2 40%+5 Laboratory Tests Test 05/17/20 12:55 05/17/20 13:00 05/17/20 23:41 05/18/20 05:00 Glucose (Fingerstick) 86 mg/dL (70-99) 141 mg/dL (70-99) O2 Saturation 95 % (92-99) Arterial Blood pH 7.32 (7.35-7.45) Arterial Blood pCO2 at Patient Temp 60 mmHg (35-46) Arterial Blood pO2 at Patient Temp 86 mmHg (65-108) Arterial Blood HCO3 30 mmol/L (21-28) Arterial Blood Base Excess 3 mmol/L (-3-3) FiO2 40/vent White Blood Count 7.3 x10^3/uL (4.0-11.0) Red Blood Count 3.72 x10^6/uL (4.30-5.70) Hemoglobin 10.5 g/dL (13.0-17.5) Hematocrit 32.8 % (39.0-53.0) Mean Corpuscular Volume 88 fL (79-100) Mean Corpuscular Hemoglobin 28 pg (25-35) Mean Corpuscular Hemoglobin Concent 32 g/dL (31-37) Red Cell Distribution Width 19.8 % (11.5-14.5) Platelet Count 394 x10^3/uL (140-400) Neutrophils (%) (Auto) 60 % (31-73) Lymphocytes (%) (Auto) 28 % (24-48) Monocytes (%) (Auto) 9 % (0-9) Eosinophils (%) (Auto) 2 % (0-3) Basophils (%) (Auto) 1 % (0-3) Neutrophils # (Auto) 4.3 x10^3/uL (1.8-7.7) Lymphocytes # (Auto) 2.1 x10^3/uL (1.0-4.8) Monocytes # (Auto) 0.7 x10^3/uL (0.0-1.1) Eosinophils # (Auto) 0.1 x10^3/uL (0.0-0.7) Basophils # (Auto) 0.1 x10^3/uL (0.0-0.2) Sodium Level 159 mmol/L (136-145) Potassium Level 3.2 mmol/L (3.5-5.1) Chloride Level 122 mmol/L (98-107) Carbon Dioxide Level 26 mmol/L (21-32) Anion Gap 11 (6-14) Blood Urea Nitrogen 57 mg/dL (8-26) Creatinine 1.4 mg/dL (0.7-1.3) Estimated GFR (Cockcroft-Gault) 51.9 BUN/Creatinine Ratio 41 (6-20) Glucose Level 165 mg/dL (70-99) Calcium Level 8.2 mg/dL (8.5-10.1) Total Bilirubin 1.3 mg/dL (0.2-1.0) Aspartate Amino Transf (AST/SGOT) 44 U/L (15-37) Alanine Aminotransferase (ALT/SGPT) 34 U/L (16-63) Alkaline Phosphatase 117 U/L (46-116) Total Protein 6.8 g/dL (6.4-8.2) Albumin 1.3 g/dL (3.4-5.0) Albumin/Globulin Ratio 0.2 (1.0-1.7) Test 05/18/20 07:30 O2 Saturation 96 % (92-99) Arterial Blood pH 7.47 (7.35-7.45) Arterial Blood pCO2 at Patient Temp 39 mmHg (35-46) Arterial Blood pO2 at Patient Temp 83 mmHg (65-108) Arterial Blood HCO3 28 mmol/L (21-28) Arterial Blood Base Excess 4 mmol/L (-3-3) FiO2 40%+5 Medications Active Scripts Medications Dose Route/Sig Max Daily Dose Days Date Category [Fluconazole] 100 MG Tablet 200 Mg PO DAILY 10 07/17/19 Rx Amox Tr-K Clv 875-125 Mg Tab (Amoxicillin/Potassium Clav) 1 Each Tablet 1 Tab PO BID 10 07/17/19 Rx Hydrocodone-Acetamin 5-325 mg (Hydrocodone/Acetaminophen) 1 Each Tablet 1 Each PO PRN Q6HRS PRN 03/14/19 Reported Diclofenac Sodium 75 Mg Tablet.dr 1 Tab PO BID 03/14/19 Reported Amlodipine Besylate 5 Mg Tablet 5 Mg PO DAILY 03/14/19 Reported Furosemide 40 Mg Tablet 1 Tab PO DAILY 03/14/19 Reported Lisinopril 30 Mg Tablet 1 Tab PO DAILY 03/14/19 Reported Actos (Pioglitazone Hcl) 30 Mg Tablet 1 Tab PO DAILY 01/31/18 Reported Comments cxr 05/17 increase effusions Impression . 1. Acute hypoxic/ hypercapnic respiratory failure secondary to acute encephalopathy and acute rhabdomyolysis along with metabolic acidosis./ sepsis 2. Acute rhabdomyolysis 3. Bilateral interstitial infiltrates, likely suspect interstitial edema.now increase effusions 4. Leukopenia, which is now resolved and has leukocytosis, improving, neg COVID. 5. Acute kidney injury secondary to rhabdomyolysis. 6. Hypernatremia. / free water deficit 7. E-Coli sepsis/ UTI/ Bacteremia 8. Obesity, suspect obstructive sleep apnea 9. Leukocytosis, per ID, 10. 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 Fever, per ID 13. Urethral stone with recurrent E. coli bacteremia Plan . Updated 3/15 AC mode ID recommended that patient be transferred to a facility where urological services are available Discussed with RT and RN Continue empiric antibiotics free water replacement / water flushes per PCP monitor renal function Total cumulative critical care time of 30 minutes with no overlap Updated 05/15 Respiratory status compensated, patient continues to be on room air We will see as needed, call if needed. Updated 05/14 CT abdomen pelvis per ID Discussed with speech follow-up dysphagia evaluation N.p.o. for now Antibiotics per ID Updated 05/13/2020 Off of oxygen supplementation no respiratory distress Dysphagia, n.p.o. per speech Continue maintenance IV fluids Antibiotics per ID 05/12/2020 Off of oxygen supplementation doing well Transfer out of the ICU Antibiotics per ID Patient extubated on May 11, 2020 Wean FiO2 As needed Lasix Follow nephrology input DVT GI prophylaxis Outpatient polysomnogram ASAD BISHOP MD May 18, 2020 11:20
--- NOTE | 2020-05-18 12:09 | NUR ---
SS following up with discharge planning. SS reviewed pt chart and discussed with pt RN. Pt is currently on the vent at 40%. COVID19 negative. Pt was re-intubated on 05/17/2020. Pt is on IV Zosyn, IV Daptomycin, IV Micafungin, and PPN. SS received request for transfer for [facility] ([facility]) for urology services for kidney stone and re-occurring Ecoli. SS contacted [facility] transfer team, ; fax [phone], and made request for transfer. SS spoke with Allie. SS faxed records as requested. Images clouded to [facility] by radiology, [phone]. Pt accepted at [facility]. Bed# 487. Accepting physician, Dr. Paz. Report# [phone]. Pt will discharge to [facility] via [facility] transport, , at 1345. Packet, [facility] form, and transfer form on the chart. Pt's family notified.
[2020-05-18] MEDS ORDERED: MIDA1PLA IV ×2 (13:39→13:48)
--- NOTE | 2020-05-18 13:51 | NUR ---
TRANSFER/DISCHARGE NOTE PATIENT TRANSPORTED VIA [facility] TO [facility], LEFT UNIT AT 1300. PATIENT WAS PLACED ON EMS VENT AND ALL VSS. PATIENT BROTHER CONSTANCE AND TRICIA NOTIFIED OF TRANSFER AND CONSENTED TO TRANSFER FOR UROLOGY SERVICES. PATIENTS ONLY BELONGINGS WERE A PAIR OF PRESCRIPTION GLASS, GIVEN TO EMS, NO OTHER BELONGINGS COULD BE FOUND. PATIENT WAS SENT WITH VERSED GTT FOR SEDATION ON RIDE OVER.
== END 2020-05-18 13:00 | disposition short-term general hospital (02) | DRG 870 ==
LOC: ER 10:50 → 1 WEST ICU 14:40 → 6 SOUTH 05-12 11:22 → 1 WEST ICU 05-17 11:10
PROVIDERS: ADMIT Family Medicine; ATTEND Family Medicine
PROC: 5A1955Z Respiratory Ventilation, Greater than 96 Consecutive Hours (ICD-10-PCS; principal; 2020-05-04)
PROC: 5A09357 Assistance with Respiratory Ventilation, Less than 24 Consecutive Hours, Continuous Positive Airway Pressure (ICD-10-PCS; 2020-05-17)
PROC: 5A1945Z Respiratory Ventilation, 24-96 Consecutive Hours (ICD-10-PCS; 2020-05-17)
PROC: 0BH17EZ Insertion of Endotracheal Airway into Trachea, Via Natural or Artificial Opening (ICD-10-PCS; 2020-05-17)
DX: A41.51 Sepsis due to Escherichia coli [E. coli] (principal); J96.01 Acute respiratory failure with hypoxia; G93.41 Metabolic encephalopathy; J96.02 Acute respiratory failure with hypercapnia; N17.0 Acute kidney failure with tubular necrosis; E87.0 Hyperosmolality and hypernatremia; M62.82 Rhabdomyolysis; E87.1 Hypo-osmolality and hyponatremia; N20.2 Calculus of kidney with calculus of ureter; N39.0 Urinary tract infection, site not specified; R57.9 Shock, unspecified; Z68.42 Body mass index [BMI] 45.0-49.9, adult; E11.40 Type 2 diabetes mellitus with diabetic neuropathy, unspecified; I50.9 Heart failure, unspecified; E87.6 Hypokalemia; R13.10 Dysphagia, unspecified; B37.9 Candidiasis, unspecified; D64.9 Anemia, unspecified; D69.59 Other secondary thrombocytopenia; D72.810 Lymphocytopenia; E11.51 Type 2 diabetes mellitus with diabetic peripheral angiopathy without gangrene; E11.649 Type 2 diabetes mellitus with hypoglycemia without coma; E66.01 Morbid (severe) obesity due to excess calories; E78.00 Pure hypercholesterolemia, unspecified; E78.5 Hyperlipidemia, unspecified; E86.0 Dehydration; E87.5 Hyperkalemia; F17.210 Nicotine dependence, cigarettes, uncomplicated; G89.29 Other chronic pain; I11.0 Hypertensive heart disease with heart failure; N21.1 Calculus in urethra; Z20.822 Contact with and (suspected) exposure to COVID-19; Z79.891 Long term (current) use of opiate analgesic; Z85.6 Personal history of leukemia; Z96.659 Presence of unspecified artificial knee joint
CPT/HCPCS: 36415; 36600; 51702; 70450; 71045; 72131; 74176; 76705; 80048; 80053; 80076; 80307; 81001; 82040; 82140; 82550; 82607; 82668; 82728; 82805; 82962; 83010; 83520; 83540; 83550; 83605; 83615; 83690; 83735; 83880; 84100; 84165; 84484; 84550; 85007; 85025; 85045; 85049; 87040; 87077; 87086; 87186; 87205; 87426; 93005; 93971; 94002; 94003; 94640; 94660; 96361; 96374; 99291; C9113; G0480; J0330; J0360; J0696; J0878; J1644; J1815; J1940; J2185; J2248; J2250; J2310; J2370; J2543; J2704; J3010; J3480; J3490; J7030; J7060; U0003; 92526-GN; 92610-GN; 97530-GO; 97530-GP; 97535-GO; G0378

== ENCOUNTER 2020-06-18 15:50 | Inpatient (IN) | payer OTHER ==
[~2020-06-18] VITALS: Ht 185.4 cm; Wt 144.1 kg
[~2020-06-18 15:50] MED LIST changes: +MIDA1PLA IV
[2020-06-18] MEDS ORDERED: cefTRIAXone IV Push 1 GM VIAL. IVP ONE (16:00)
[2020-06-18] MEDS ORDERED: IV NORMAL SALINE 1000ML BAG 1,000 ML IV ONE (16:00)
[2020-06-18] MEDS ORDERED: ACETAMINOPHEN 650 MG SUPP.RECT. ONE (16:19)
[2020-06-18] MEDS ORDERED: ACETAMINOPHEN 500 MG TABLET PO ONE (16:30)
[2020-06-18 16:31] LABS: BASO % 0 % (0-3); EOS % 0 % (0-3); HEMATOCRIT 31.1 % (39.0-53.0); HEMOGLOBIN 10.6 g/dL (13.0-17.5); LYMPH # 1.2 x10^3/uL (1.0-4.8); LYMPH % 13 % (24-48); MEAN CORPUSCULAR HEMOGLOBIN 29 pg (25-35); MEAN CORPUSCULAR HGB CONC 34 g/dL (31-37); MEAN CORPUSCULAR VOLUME 86 fL (79-100); MONO # 0.6 x10^3/uL (0.0-1.1); MONO % 7 % (0-9); NEUT # 7.2 x10^3/uL (1.8-7.7); NEUT % 80 % (31-73); PLATELET COUNT 278 x10^3/uL (140-400); RED BLOOD COUNT 3.62 x10^6/uL (4.30-5.70); RED CELL DISTRIBUTION WIDTH 17.1 % (11.5-14.5)
--- NOTE | 2020-06-18 16:32 | RAD ---
EXAM: Chest, single view. HISTORY: Shortness of breath. COMPARISON: 05/17/2020 FINDINGS: A frontal view of the chest is obtained. There is a stable small left pleural effusion with lower lobe atelectasis or infiltrate. There is stable interstitial prominence and there is a stable prominent cardiac silhouette. There is thoracic fusion instrumentation. IMPRESSION: 1. Stable small left pleural effusion with lower lobe atelectasis or infiltrate. 2. Stable diffuse interstitial prominence. Electronically signed by: Argelia Bradford MD (06/18/2020 4:29 PM) [facility]
[2020-06-18 16:33] LABS: BILIRUBIN,URINE NEGATIVE (NEG); CLARITY,URINE CLEAR; COLOR,URINE YELLOW; NITRITE,URINE NEGATIVE (NEG); PH,URINE 6.5 (<5.0-8.0); PROTEIN,URINE NEGATIVE (NEG-TRACE)
[2020-06-18 16:33] LABS: BASE EXCESS COOX 0 mmol/L (-3-3); CORRECTED PCO2 COOX 32 mmHg; CORRECTED PH COOX 7.47; CORRECTED PO2 COOX 72 mmHg; HCO3 COOX 22 mmol/L (21-28); METHEMOGLOBIN 0.4 % (0.0-1.9); OXYHEMOGLOBIN 91.7 %; PCO2 COOX 29 mmHg (35-46); PO2 COOX 63 mmHg (65-108); SAT O2 COOX 92 % (92-99)
[2020-06-18 16:38] LABS: CALCIUM 7.8 mg/dL (8.5-10.1); CREATININE 0.7 mg/dL (0.7-1.3); GFR 115.4; POTASSIUM 4.6 mmol/L (3.5-5.1)
[2020-06-18 16:44] LABS: ALBUMIN 1.5 g/dL (3.4-5.0); ALBUMIN/GLOBULIN RATIO 0.3 (1.0-1.7); TOTAL BILIRUBIN 0.7 mg/dL (0.2-1.0); TOTAL PROTEIN 6.8 g/dL (6.4-8.2)
[2020-06-18 16:48] LABS: RBC,URINE RARE /HPF (0-2); WBC,URINE OCC /HPF (0-4)
[2020-06-18 16:51] LABS: BACTERIA,URINE 0 /HPF (0-FEW)
[2020-06-18 17:07] LABS: INFLUENZA A PATIENT NEGATIVE (NEGATIVE); INFLUENZA B PATIENT NEGATIVE (NEGATIVE)
--- NOTE | 2020-06-18 17:54 | ED.ADGEN ---
Past Medical History Past Medical History: Diabetes-Type II, High Cholesterol, Hypertension, Other Additional Past Medical Histor: CHRONIC BACK PAIN Past Surgical History: Knee Replacement Additional Past Surgical Histo: TOE AMPUTATION Smoking Status: Current Some Day Smoker Alcohol Use: Heavy Drug Use: Marijuana General Adult EDM: Chief Complaint: ALTERED MENTAL STATUS HPI: HPI: Patient 60-year-old male who presents to the emergency room from nursing facility for altered mental status. According to report patient was normal this morning but progressively became confused throughout the day. He got a temperature this afternoon. He has had increasing hypoxia throughout the day. He is not typically on oxygen but is requiring 4 L of oxygen at this time. Patient is complaining of back pain. He does have a decubitus ulcer there. He denies any other complaints. He does feel hot and sweaty at this time. He denies chest pain or shortness of breath. He does not have any abdominal pain, nausea, vomiting, headache. Review of Systems: Review of Systems: Complete ROS is negative unless otherwise documented in HPI Current Medications: Current Medications Medications (Trade) Dose Ordered Sig/Triny Start Time Stop Time Status Last Admin Dose Admin Acetaminophen (Tylenol Supp) 650 mg STK-MED ONCE 06/18/20 16:19 06/18/20 16:20 DC Acetaminophen (Tylenol) 1,000 mg 1X ONCE 06/18/20 16:30 06/18/20 16:31 DC 06/18/20 16:25 1,000 MG Ceftriaxone Sodium (Rocephin) 1 gm 1X ONCE 06/18/20 16:00 06/18/20 16:11 DC 06/18/20 16:22 1 GM Sodium Chloride 1,000 ml @ 1,000 mls/hr 1X ONCE 06/18/20 16:00 06/18/20 16:59 DC 06/18/20 16:17 1,000 MLS/HR Allergies: Allergies: Allergies Coded Allergies Type Severity Reaction Last Updated Verified No Known Drug Allergies 01/31/18 No Physical Exam: PE: General: Awake, alert, NAD. Well Nourished, well hydrated. Cooperative HEENT: Atraumatic, EOMI, PERRL, airway patent, moist oral mucosa Neck: Supple, trachea midline Respiratory: Increased work of breathing, mild tachypnea, decreased breath so unds bilaterally CV: Tachycardic, no murmur, cap refill <2 GI: Soft, nondistended, nontender, no masses MSK: No obvious deformities Skin: Warm, dry, large decubitus ulcer on buttocks and lower back with minimal bleeding Neuro: A&O x2, speech NL, sensory and motor grossly intact, no focal deficits Psych: Normal affect, normal mood, not suicidal or homicidal Current Patient Data: Labs: Laboratory Tests Test 06/18/20 16:00 06/18/20 16:14 06/18/20 16:30 06/18/20 16:32 White Blood Count 9.0 x10^3/uL (4.0-11.0) Red Blood Count 3.62 x10^6/uL (4.30-5.70) L Hemoglobin 10.6 g/dL (13.0-17.5) L Hematocrit 31.1 % (39.0-53.0) L Mean Corpuscular Volume 86 fL (79-100) Mean Corpuscular Hemoglobin 29 pg (25-35) Mean Corpuscular Hemoglobin Concent 34 g/dL (31-37) Red Cell Distribution Width 17.1 % (11.5-14.5) H Platelet Count 278 x10^3/uL (140-400) Neutrophils (%) (Auto) 80 % (31-73) H Lymphocytes (%) (Auto) 13 % (24-48) L Monocytes (%) (Auto) 7 % (0-9) Eosinophils (%) (Auto) 0 % (0-3) Basophils (%) (Auto) 0 % (0-3) Neutrophils # (Auto) 7.2 x10^3/uL (1.8-7.7) Lymphocytes # (Auto) 1.2 x10^3/uL (1.0-4.8) Monocytes # (Auto) 0.6 x10^3/uL (0.0-1.1) Eosinophils # (Auto) 0.0 x10^3/uL (0.0-0.7) Basophils # (Auto) 0.0 x10^3/uL (0.0-0.2) Urine Collection Type Unknown Urine Color Yellow Urine Clarity Clear Urine pH 6.5 (<5.0-8.0) Urine Specific [place] 1.010 (1.000-1.030) Urine Protein Negative mg/dL (NEG-TRACE) Urine Glucose (UA) Negative mg/dL (NEG) Urine Ketones (Stick) Negative mg/dL (NEG) Urine Blood Negative (NEG) Urine Nitrite Negative (NEG) Urine Bilirubin Negative (NEG) Urine Urobilinogen Dipstick 1.0 mg/dL (0.2 mg/dL) Urine Leukocyte Esterase Negative (NEG) Urine RBC Rare /HPF (0-2) Urine WBC Occ /HPF (0-4) Urine Squamous Epithelial Cells Few /LPF Urine Transitional Epithelial Cells Mod /LPF Urine Bacteria 0 /HPF (0-FEW) Sodium Level 130 mmol/L (136-145) L Potassium Level 4.6 mmol/L (3.5-5.1) Chloride Level 95 mmol/L (98-107) L Carbon Dioxide Level 23 mmol/L (21-32) Anion Gap 12 (6-14) Blood Urea Nitrogen 12 mg/dL (8-26) Creatinine 0.7 mg/dL (0.7-1.3) Estimated GFR (Cockcroft-Gault) 115.4 BUN/Creatinine Ratio 17 (6-20) Glucose Level 156 mg/dL (70-99) H Lactic Acid Level 1.8 mmol/L (0.4-2.0) Calcium Level 7.8 mg/dL (8.5-10.1) L Total Bilirubin 0.7 mg/dL (0.2-1.0) Aspartate Amino Transferase (AST) 50 U/L (15-37) H Alanine Aminotransferase (ALT) 42 U/L (16-63) Alkaline Phosphatase 260 U/L (46-116) H Troponin I Quantitative < 0.017 ng/mL (0.000-0.055) Total Protein 6.8 g/dL (6.4-8.2) Albumin 1.5 g/dL (3.4-5.0) L Albumin/Globulin Ratio 0.3 (1.0-1.7) L SARS-CoV-2 Antigen (Rapid) Negative (NEGATIVE) Influenza Type A Antigen Negative (NEGATIVE) Influenza Type B Antigen Negative (NEGATIVE) Ammonia 22 mcmol/L (11-34) O2 Saturation 92 % (92-99) Arterial Blood pH 7.50 (7.35-7.45) H Arterial Blood pH (Temp corrected) 7.47 Arterial Blood pCO2 at Patient Temp 29 mmHg (35-46) L Arterial Blood pCO2 (Temp correct) 32 mmHg Arterial Blood pO2 at Patient Temp 63 mmHg (65-108) L Arterial Blood pO2 (Temp corrected) 72 mmHg Arterial Blood HCO3 22 mmol/L (21-28) Arterial Blood Base Excess 0 mmol/L (-3-3) Oxyhemoglobin 91.7 % Methemoglobin 0.4 % (0.0-1.9) Carbon Monoxide, Quantitative 0.2 % (0.0-1.9) FiO2 4l nc/ 36% Laboratory Tests 06/18/20 16:00 Laboratory Tests 06/18/20 16:00 Vital Signs: Vital Signs Date Time Temp Pulse Resp B/P (MAP) Pulse Ox O2 Delivery O2 Flow Rate FiO2 06/18/20 15:54 101.4 129 26 131/67 (88) 97 Nasal Cannula 4.0 101.4 EKG: EKG: [] Heart Score: C/O Chest Pain: N/A Risk Factors: Risk Factors: DM, Current or recent (<one month) smoker, HTN, HLP, family history of CAD, obesity. Risk Scores: Score 0 - 3: 2.5% MACE over next 6 weeks - Discharge Home Score 4 - 6: 20.3% MACE over next 6 weeks - Admit for Clinical Observation Score 7 - 10: 72.7% MACE over next 6 weeks - Early Invasive Strategies Radiology/Procedures: Radiology/Procedures: [] Course & Med Decision Making: Course & Med Decision Making Pertinent Labs and Imaging studies reviewed. (See chart for details) Patient presents to the ED c/o fever and altered mental status.Upon arrival, patient meets SIRs criteria and their presentation is concerning for possible sepsis. Code sepsis was set off in triage. Sepsis work up including CBC, BMP, CXR, UA, blood cx were ordered. Patient was given antibiotics after cx were drawn. At this time patient does not show signs of shock and does not need the 30 ml/kg fluid bolus. He was given a liter of fluid given his heart rate of 130. He was given Rocephin. Covid and influenza swabs were sent. Patient is stable on 4 L of oxygen. ABG does not show hypercapnia at this time. Patient will be admitted to Dr. Sneed. Maegan Disclaimer: Maegan Disclaimer: This electronic medical record was generated, in whole or in part, using a voice recognition dictation system. Departure Departure Impression: Primary Impression: Sepsis Additional Impressions: Pneumonia Hypoxia Decubitus ulcer Disposition: ADMITTED INPATIENT Condition: STABLE Referrals: BUSTER LEMONS MD (PCP) Problem Qualifiers EVERARDO FRIAS MD Jun 18, 2020 17:54
[2020-06-18] MEDS ORDERED: MORPHINE SULFATE 4 MG/ML VIAL. IV ONE (18:15)
[2020-06-18 23:00] VITALS: BP 110/66
[2020-06-18 23:54] VITALS: BP 110/66
[2020-06-19] MEDS ORDERED: OXYC1TAB15 PO (00:07)
[2020-06-19] MEDS ORDERED: POTA20TA4 PO (00:48)
[2020-06-19] MEDS ORDERED: ACET325T21 PO (00:48)
[2020-06-19] MEDS ORDERED: INSU100V6 SQ (00:48)
[2020-06-19] MEDS ORDERED: BISA10SU55 RC (00:48)
[2020-06-19] MEDS ORDERED: PANT40TA77 PO (00:48)
[2020-06-19] MEDS ORDERED: POLY2500 PO (00:48)
[2020-06-19] MEDS ORDERED: MUPI15CR8 TP (00:58)
[2020-06-19] MEDS ORDERED: DOCU-109 PO (00:58)
[2020-06-19] MEDS ORDERED: LISI10TA16 PO (00:58)
[2020-06-19] MEDS ORDERED: INSU100I13 SQ (00:58)
[2020-06-19] MEDS ORDERED: MULT-496 PO (00:58)
[2020-06-19] MEDS ORDERED: ACETAMINOPHEN 325 MG TABLET. PO PRN (01:15)
[2020-06-19] MEDS: oxyCODONE/APAP 5/325 1 TAB TABLET PO PRN ×4 (01:26→21:01)
[2020-06-19 03:00] VITALS: BP 95/52
[2020-06-19 07:21] VITALS: BP 135/65
[2020-06-19 11:27] VITALS: BP 129/54
[2020-06-19] MEDS ORDERED: BISACODYL 10 MG SUPP.RECT. RC PRN (13:30)
--- NOTE | 2020-06-19 13:40 | NUR ---
SS following for discharge planning. SS reviewed pt chart and discussed with pt RN. Pt is from [facility], ; fax [phone]. Pt is currently a skilled resident at facility but is transitioning to LTC. Pt is currently requiring oxygen at two liters nasal canula. COVID19 negative. Pt on IV Zosyn. ID and wound care consulted. SS will continue to follow for discharge planning.
[2020-06-19 14:27] VITALS: BP 134/67
[2020-06-19] MEDS: PANTOPRAZOLE 40 MG TABLET.DR. PO SCH (14:52)
[2020-06-19] MEDS: POLYETHYLENE GLYCOL 3350 17 GM PACKET. PO SCH (14:52)
[2020-06-19] MEDS: LISINOPRIL 10 MG TABLET PO SCH (14:53)
[2020-06-19] MEDS: FUROSEMIDE 40 MG TABLET. PO SCH (14:53)
[2020-06-19] MEDS: PIPERACILLIN/TAZOBACTAM 3.375 GM in IV NORMAL SALINE 50ML 50 ML IV SCH ×3 (15:29→23:58)
--- NOTE | 2020-06-19 16:05 | NUR ---
Wound/Ostomy Care Wound Type/Assessment: Patient seen per wound care consult. See wound assessment. Patient has large unstageable PU to the sacrum, right knee abrasion, left arm skin tear, right thigh PU, and a left heel DFU. All wounds cleansed, assessed, measured, and pictured if needed. Treatment Recommendations/Plan: Recommendations for A&D ointment to sacrum, patient is incontinent of stool. To the right knee abrasion and left arm skin tear apply xeroform gauze and foam dressing. Skin prep to the right thigh DTI and lastly skin prep and foam to the left heel. All dressings applied. Education provided: Patient educated on dressing changes and PU treatment. Patient should be right and left side turns only, backside only for meals. Offloading surface/device: Patient is on a P-500 bed. Patient turned to left side using purple wedge. Recommended Referrals/Tests: N/A Discharge Recommendations for dressings: Dressing change instructions left in room. No other wounds noted. Bed lowered and call light in reach. Wound care will follow up on 06/23/20.
--- NOTE | 2020-06-19 17:02 | HP ---
ADMIT DATE: 06/19/2020 CHIEF COMPLAINT AND HISTORY OF PRESENT ILLNESS: This 60-year-old white male has been left nursing home/rehab following a lengthy hospitalization at [place] in [facility] for recurrent urosepsis due to E. coli. He had mechanical ventilation x 2 with respiratory failure and eventual transfer to [facility] for urological evaluation with the renal ____ was found full of pus at the time of manipulating the stone in which fashion I am not sure. After that he did seem to improve. He had recurrent bacteremia last hospitalization prior to the stone manipulation. He had been progressing slowly a rehab, but had altered mental status, requiring 4 liters of nasal cannula oxygen, febrile to 102 on the day of admission, was transferred to the emergency room where he was admitted for likely recurrent sepsis and hypoxia with nasal cannula O2 meeting his needs at the time of admission. PAST MEDICAL HISTORY: Again is well documented on old charts, does include the hospitalization as above. 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 He has a long history of diabetes, hypertension, hyperlipidemia, morbid obesity, congestive heart failure, thrombocytopenia, rhabdomyolysis, acute kidney injury with recovery during the last day which profoundly dehydrated in addition with profound hypernatremia. MEDICATIONS: Brought with the patient, listed on computer and have been addressed. ALLERGIES: He has no known drug allergies. SOCIAL HISTORY: He is a nonsmoker, does drink beer, does not abuse drugs. Single, lives at home alone. FAMILY HISTORY: Noncontributory. REVIEW OF SYSTEMS: Remarkable primarily for feeling crummy all over and wanting just feel good again. PHYSICAL EXAMINATION: GENERAL: He is a well-developed, well-nourished, obese white male in no acute distress at the time of my evaluation. VITAL SIGNS: Stable. He is afebrile. He is on nasal cannula O2. HEAD, EYES, EARS, NOSE AND THROAT: Remarkable for glasses. NECK: Supple without adenopathy or thyromegaly. CHEST: Clear to auscultation and percussion. HEART: Regular rate and rhythm without S3, S4 or murmur. ABDOMEN: Soft, nontender, without hepatosplenomegaly or masses. EXTREMITIES: Without cyanosis or clubbing. There is trace edema. NEUROLOGIC: He is intact. He does have a Duggan catheter indwelling and early skin breakdown over his posterior sacrum and buttocks area diffusely. LABORATORY DATA: Reveals normal white count 9000 with a left shift. Kidney function at this time is within normal limits with a BUN of 12, creatinine 0.7. Sodium was mildly low at 130, glucose of 156. Albumin is profoundly low at 1.5. Blood cultures have turned positive for Gram-negative rods again shortly into the admission suggesting recurrent bacteremia, likely related back to the urinary problems. Although, initial UA at this point in time is essentially unremarkable. IMPRESSION: 1. Sepsis. 2. Acute respiratory failure with hypoxia. ADDITIONAL DIAGNOSES: Decubitus ulcers, diabetes, bacteremia. PLAN: Ongoing IV Zosyn. ID evaluation, hydration. At this point, we will hold as he is going to be taking p.o. I think fairly well at the time of my initial evaluation and he was initially hypotensive, is pretty much improved. The patient will be monitored, managed and treated appropriately. BUSTER LEMONS MD DR: JAZIEL/helene JOB#: [id number] / [id number]
[2020-06-19] MEDS: POTASSIUM CHLORIDE 20 MEQ TABLET.ER. PO SCH (17:17)
[2020-06-19] MEDS: INSULIN LISPRO 300 UNITS/3 ML VIAL. SQ SCH (17:39)
--- NOTE | 2020-06-19 17:56 | NUR ---
non administer 1900 zosyn as not enough time in between.
[2020-06-19 19:20] VITALS: BP 102/65
[2020-06-19] MEDS: VITS A & D/LANOLIN TOPICAL OINTMENT 42GM TUBE. TP SCH (20:58)
[2020-06-19] MEDS: DOCUSATE SODIUM 100 MG CAPSULE. PO SCH (20:58)
[2020-06-19] MEDS: MUPIROCIN 2 % TOPICAL CREAM 30GM TUBE. TP SCH (20:59)
[2020-06-19] MEDS: INSULIN GLARGINE SYRINGE. SQ SCH (21:00)
[2020-06-19 23:18] VITALS: BP 121/61
[2020-06-20 03:05] VITALS: BP 120/67
[2020-06-20] MEDS: oxyCODONE/APAP 5/325 1 TAB TABLET PO PRN ×3 (03:19→19:03)
[2020-06-20] MEDS: PIPERACILLIN/TAZOBACTAM 3.375 GM in IV NORMAL SALINE 50ML 50 ML IV SCH ×4 (05:43→23:22)
[2020-06-20 07:00] VITALS: BP 106/52
[2020-06-20] MEDS: DOCUSATE SODIUM 100 MG CAPSULE. PO SCH ×2 (08:49→21:12)
[2020-06-20] MEDS: MULTIVITAMIN with MINERAL TABLET. PO SCH (08:50)
[2020-06-20] MEDS: LISINOPRIL 10 MG TABLET PO SCH (08:50)
[2020-06-20] MEDS: PANTOPRAZOLE 40 MG TABLET.DR. PO SCH (08:50)
[2020-06-20] MEDS: FUROSEMIDE 40 MG TABLET. PO SCH (08:50)
[2020-06-20] MEDS: POLYETHYLENE GLYCOL 3350 17 GM PACKET. PO SCH (08:50)
[2020-06-20] MEDS: POTASSIUM CHLORIDE 20 MEQ TABLET.ER. PO SCH ×3 (08:51→18:06)
[2020-06-20] MEDS: INSULIN LISPRO 300 UNITS/3 ML VIAL. SQ SCH ×3 (08:57→18:04)
[2020-06-20] MEDS: VITS A & D/LANOLIN TOPICAL OINTMENT 42GM TUBE. TP SCH ×2 (09:32→21:18)
[2020-06-20] MEDS: MUPIROCIN 2 % TOPICAL CREAM 30GM TUBE. TP SCH ×2 (09:33→21:18)
--- NOTE | 2020-06-20 09:47 | PDOC ---
Provider Note Date of Service: DATE: 06/20/20 TIME: 09:45 Provider Note no temp, bp low, will hold dora celestin pos for gram neg selvin- continue zosyn Justifications for Admission Other Justification MARGARET DUDLEY MD Jun 20, 2020 09:46
--- NOTE | 2020-06-20 10:00 | PDOC ---
Infectious Disease Note Vital Signs: Vital Signs Vital Signs Date Time Temp Pulse Resp B/P (MAP) Pulse Ox O2 Delivery O2 Flow Rate FiO2 06/20/20 08:50 88 106/52 06/20/20 08:00 Nasal Cannula 2.0 06/20/20 07:00 97.6 16 100 97.6 Medications: Inpatient Meds: Medications reviewed. Labs: Lab Laboratory Tests Test 06/19/20 16:11 06/19/20 20:46 06/20/20 07:53 Glucose (Fingerstick) 170 mg/dL (70-99) 162 mg/dL (70-99) 130 mg/dL (70-99) Objective: Assessment: Pt seen and examined ID consult dictated [id number] Plan: Plan of Care Cont zosyn micafungin off load Thank you WILI POST MD Jun 20, 2020 10:00
[2020-06-20 11:00] VITALS: BP 119/62
[2020-06-20] MEDS: MICAFUNGIN 100 MG in IV DEXTROSE 5% 100ML 100 ML IV SCH (12:42)
[2020-06-20] MEDS: ENOXAPARIN 40 MG/0.4 ML SYRINGE. SQ SCH ×2 (12:55→21:13)
[2020-06-20 15:00] VITALS: BP 137/70
[2020-06-20 18:40] VITALS: BP 138/67
[2020-06-20] MEDS: LACTOBACILLUS RHAMNOSUS GG 1 CAPSULE. PO SCH (21:12)
[2020-06-20] MEDS: INSULIN GLARGINE SYRINGE. SQ SCH (21:17)
--- NOTE | 2020-06-20 22:01 | CONS ---
DATE OF CONSULTATION: 06/20/2020 REFERRING PHYSICIAN: Camron Carroll MD REASON FOR CONSULTATION: Gram-negative sepsis. HISTORY OF PRESENT ILLNESS: A 60-year-old male, who was last admitted at [facility] for recurrent urosepsis due to Escherichia coli. Source was genitourinary tract, who underwent urologic procedure at [facility] prior to transfer to [facility] facility following a lengthy hospitalization at [facility] and [facility] recently. He was progressing slowly at rehab facility where he was found to have altered mental status requiring 4 liters of O2 by nasal cannula, along with fever of 102 prior to transfer to the ER here at [facility]. The patient's temperature was 98.9. White count was 9.0. Sodium of 130. Creatinine of 0.7, lactate of 1.8. Troponin was normal. Albumin was 1.7. UA showed occasional WBC, otherwise negative. SARS-COVID negative. Influenza screen negative. Blood culture from 06/18/2020 was positive for 1 out of 3 bottles with gram-negative selvin. The patient is on Zosyn. ID consultation has been requested for antibiotic management. Today, the patient appears more alert. He is on 2 liters O2 by nasal cannula. Complains of constipation. Has no bowel movement since last Monday. Complains of skin breakdown with pain in the buttock area. He denies any nausea, vomiting. Continues to have indwelling Duggan. PAST MEDICAL HISTORY: Prolonged hospitalization for recurrent E. coli urosepsis from ureteral stone, status post urologic procedure at [facility], multiple lumbar compression fractures of uncertain etiology. Bone marrow showed Polyclonal plasmacytosis. PAST MEDICAL HISTORY: Diabetes, hypertension, hyperlipidemia, morbid obesity, history of CHF, thrombocytopenia, rhabdomyolysis, AUGUSTINE with recovery. CURRENT MEDICATIONS: Zosyn. Other medications reviewed in medication list. ALLERGIES: No known drug allergies. SOCIAL HISTORY: Nonsmoker, no ETOH, no illicit drug use. Lived at home alone prior to last admission. FAMILY HISTORY: Noncontributory. REVIEW OF SYSTEMS: Limited, but negative except for above in HPI. PHYSICAL EXAMINATION: VITAL SIGNS: Temperature 98.1, pulse 97, respiratory rate 20, blood pressure 102/65, oxygen saturation 100% on 2 liters O2 by nasal cannula. GENERAL: Alert, awake male lying in bed comfortably, in no acute distress. HEENT: Normocephalic, atraumatic, anicteric. NECK: Supple, no JVD. LUNGS: Clear bilaterally. No wheezing. HEART: S1, S2. No gallops or murmurs. ABDOMEN: Soft, obese. Bowel sounds present, nontender, nondistended. GENITOURINARY: Duggan in place, which was placed today. EXTREMITIES: Trace edema, no cyanosis, no clubbing. DERMATOLOGIC: Warm, dry. No generalized rash. Skin breakdown extensively over the sacral and buttock area, diffuse disease bilaterally. PIV looks okay. LABORATORY DATA: WBC 9.0, hemoglobin 10.6, hematocrit 31.1, platelets 278, neutrophils 80%. Sodium 130, potassium 4.6, chloride 95, bicarbonate 23, BUN 12, creatinine 0.7, glucose 156. Lactate 1.8, albumin is 1.5. Troponin normal. Ammonia normal. Alkaline phosphatase 260, AST 20. UA negative. Influenza screen negative. SARS-COVID negative. IMAGING: Chest x-ray shows small left pleural effusion with left lobe atelectasis or infiltrate, stable diffuse interstitial prominence. MICROBIOLOGY: One out of three bottles positive for gram-negative rods from 06/18/2020. IMPRESSION: 1. Sepsis. 2. Gram-negative bacteremia. Source appears GI 3. Constipation. 4. Acute hypoxic respiratory failure, COVID-19 and influenza screen negative. 5. Diabetes. 6. Decubitus ulcers. 7. Generalized debility. 8. History of recent E. coli recurrent urosepsis. UA negative here 9. Protein-calorie malnutrition. 10. Encephalopathy likely metabolic improved 11. hyponatremia. RECOMMENDATIONS: 1. Continue Zosyn. 2. Follow up ID and RAD of gram-negative selvin in blood culture. 3. Treatment of constipation per primary. 4. Start micafungin. 5. Offload. 6. Continue local wound care. 7. Follow up labs and cultures. 8. Continue supportive care. Thank you, Dr. Carroll, for giving me an opportunity to participate in this patient's care. We will follow along with you. Discussed with nursing staff. WILI POST MD DR: SANDHYA/helene JOB#: [id number] / [id number] LALO
[2020-06-20 23:00] VITALS: BP_SYST 147; BP_SYST 154; BP_DIAS 58; BP_DIAS 62
[2020-06-21] MEDS: oxyCODONE/APAP 5/325 1 TAB TABLET PO PRN ×4 (00:41→21:36)
[2020-06-21 03:20] VITALS: BP 148/71
[2020-06-21] MEDS: PIPERACILLIN/TAZOBACTAM 3.375 GM in IV NORMAL SALINE 50ML 50 ML IV SCH ×4 (05:43→23:40)
[2020-06-21 07:00] VITALS: BP 135/73
[2020-06-21] MEDS: POTASSIUM CHLORIDE 20 MEQ TABLET.ER. PO SCH ×2 (08:37→17:36)
[2020-06-21] MEDS: PANTOPRAZOLE 40 MG TABLET.DR. PO SCH (08:37)
[2020-06-21] MEDS: MULTIVITAMIN with MINERAL TABLET. PO SCH (08:44)
[2020-06-21] MEDS: FUROSEMIDE 40 MG TABLET. PO SCH (08:44)
[2020-06-21] MEDS: POLYETHYLENE GLYCOL 3350 17 GM PACKET. PO SCH (08:44)
[2020-06-21] MEDS: LACTOBACILLUS RHAMNOSUS GG 1 CAPSULE. PO SCH ×2 (08:44→21:36)
[2020-06-21] MEDS: VITS A & D/LANOLIN TOPICAL OINTMENT 42GM TUBE. TP SCH ×2 (08:46→21:37)
[2020-06-21] MEDS: ENOXAPARIN 40 MG/0.4 ML SYRINGE. SQ SCH ×2 (08:51→21:38)
[2020-06-21] MEDS: INSULIN LISPRO 300 UNITS/3 ML VIAL. SQ SCH ×3 (08:52→17:43)
[2020-06-21] MEDS: DOCUSATE SODIUM 100 MG CAPSULE. PO SCH ×2 (08:57→21:36)
[2020-06-21] MEDS: MUPIROCIN 2 % TOPICAL CREAM 30GM TUBE. TP SCH ×2 (08:58→21:36)
[2020-06-21] MEDS: MICAFUNGIN 100 MG in IV DEXTROSE 5% 100ML 100 ML IV SCH (08:59)
--- NOTE | 2020-06-21 09:01 | PDOC ---
Infectious Disease Note Subjective: Subjective Patient complains of constipation Continues to have abdominal discomfort Denies fever, nausea, vomiting, or diarrhea, shortness of breath or cough Discussed with RN Vital Signs: Vital Signs Vital Signs Date Time Temp Pulse Resp B/P (MAP) Pulse Ox O2 Delivery O2 Flow Rate FiO2 06/21/20 07:00 97.7 85 16 135/73 (93) 92 Nasal Cannula 2.0 97.7 Physical Exam: PHYSICAL EXAM GENERAL: Alert, awake male lying in bed comfortably, in no acute distress. HEENT: Normocephalic, atraumatic, anicteric. NECK: Supple, no JVD. LUNGS: Clear bilaterally. No wheezing. HEART: S1, S2. No gallops or murmurs. ABDOMEN: Soft, obese. Bowel sounds present, nontender, nondistended. GENITOURINARY: Duggan in place, which was placed today. EXTREMITIES: Trace edema, no cyanosis, no clubbing. DERMATOLOGIC: Warm, dry. No generalized rash. Skin breakdown extensively over the sacral and buttock area, diffuse disease bilaterally. PIV looks okay. Medications: Inpatient Meds: Medications reviewed. Labs: Lab Laboratory Tests Test 06/20/20 12:13 06/20/20 17:57 06/20/20 21:11 06/21/20 07:57 Glucose (Fingerstick) 162 mg/dL (70-99) 135 mg/dL (70-99) 141 mg/dL (70-99) 127 mg/dL (70-99) Objective: Assessment: 1. Sepsis from gram-negative bacteremia. 2. Gram-negative bacteremia. Source likely GI 3. Constipation 4. Acute hypoxic respiratory failure, COVID-19 and influenza screen negative. 5. Diabetes. 6. Decubitus ulcers. 7. Generalized debility. 8. History of recent E. coli recurrent urosepsis. 9. Protein-calorie malnutrition. 10. Hyponatremia. Plan: Plan of Care Cont zosyn micafungin off load Continue local wound care. Follow up labs and cultures. Continue supportive care. Discussed with WILI HALE MD Jun 21, 2020 09:01
[2020-06-21 11:00] VITALS: BP 141/65
--- NOTE | 2020-06-21 11:02 | PDOC ---
Provider Note Date of Service: DATE: 06/21/20 TIME: 11:01 Provider Note has bilat deep gluteal wounds that look necrotic- will consult surgeon as may need operative debridement- rest of meds same for now Justifications for Admission Other Justification MARGARET DUDLEY MD Jun 21, 2020 11:02
--- NOTE | 2020-06-21 13:16 | PDOC2 ---
CONSULT Date of Consult Date of Consult DATE: 06/21/20 TIME: 13:03 Reason for Consult Reason for Consult: pressure ulcer with full thickness skin necrosis Identification/Chief Complaint Chief Complaint 60 y/o with morbid obesity who has been battling gi infection since mar. recently he fell and was at [facility]. transfer to rehab. sounds like he did not do much therapy and lied on his back. he developed pressure ulcer and is here for care. seen by wound service. consult for possible debridment. Source Source: Chart review, Patient History of Present Illness Reason for Visit: see above has not been working last 3 years due to back condiditon and surgery for back. disabled. Past Medical History Cardiovascular: CHF, HTN, Hyperlipidemia GI: Constipation Psych: Addictions Endocrine: Diabetes Past Surgical History Past Surgical History: Other Current Problem List Problem List Problems Medical Problems: (1) Decubitus ulcer Status: Acute (2) Hypoxia Status: Acute (3) Pneumonia Status: Acute (4) Sepsis Status: Acute Current Medications Current Medications Current Medications Ceftriaxone Sodium (Rocephin) 1 gm 1X ONCE IVP Last administered on 06/18/20at 16:22; Start 06/18/20 at 16:00; Stop 06/18/20 at 16:11; Status DC Sodium Chloride 1,000 ml @ 1,000 mls/hr 1X ONCE IV Last administered on 06/18/20at 16:17; Start 06/18/20 at 16:00; Stop 06/18/20 at 16:59; Status DC Acetaminophen (Tylenol Supp) 650 mg STK-MED ONCE .ROUTE ; Start 06/18/20 at 16:19; Stop 06/18/20 at 16:20; Status DC Acetaminophen (Tylenol) 1,000 mg 1X ONCE PO Last administered on 06/18/20at 16:25; Start 06/18/20 at 16:30; Stop 06/18/20 at 16:31; Status DC Morphine Sulfate (Morphine Sulfate) 4 mg 1X ONCE IV Last administered on 06/18/20at 18:15; Start 06/18/20 at 18:15; Stop 06/18/20 at 18:16; Status DC Acetaminophen (Tylenol) 650 mg PRN Q6HRS PRN PO PAIN MILD; Start 06/19/20 at 01:15 Oxycodone/ Acetaminophen (Percocet 5/325) 1 tab PRN Q6HRS PRN PO PAIN MODERATE TO SEVERE Last administered on 06/21/20at 08:38; Start 06/19/20 at 01:15 Piperacillin Sod/ Tazobactam Sod 3.375 gm/Sodium Chloride 50 ml @ 100 mls/hr Q6HRS IV Last administered on 06/21/20at 12:35; Start 06/19/20 at 14:00 Bisacodyl (Dulcolax Supp) 10 mg PRN DAILY PRN RC CONSTIPATION; Start 06/19/20 at 13:30 Docusate Sodium (Colace) 100 mg BID PO Last administered on 06/21/20 08:57; Start 06/19/20 at 21:00 Furosemide (Lasix) 40 mg DAILY PO Last administered on 06/21/20 08:44; Start 06/19/20 at 14:00 Insulin Human Lispro (HumaLOG) 4 units TIDWMEALS SQ Last administered on 06/21/20at 12:37; Start 06/19/20 at 17:00 Lisinopril (Prinivil) 10 mg DAILY PO Last administered on 06/20/20at 08:50; Start 06/19/20 at 14:00; Stop 06/20/20 at 09:45; Status DC Mupirocin (Bactroban) 1 linda BID TP Last administered on 06/21/20 08:58; Start 06/19/20 at 21:00 Pantoprazole Sodium (Protonix) 40 mg DAILYAC PO Last administered on 06/21/20at 08:37; Start 06/19/20 at 16:30 Potassium Chloride (Klor-Con) 20 meq BIDWMEALS PO Last administered on 06/20/20 08:51; Start 06/19/20 at 17:00; Stop 06/20/20 at 09:45; Status DC Insulin Glargine (Lantus Syringe) 45 unit QHS SQ Last administered on 06/20/20 21:17; Start 06/19/20 at 21:00 Multivitamins (Thera M Plus) 1 tab DAILY PO Last administered on 06/21/20 08:44; Start 06/20/20 at 09:00 Polyethylene Glycol (miraLAX PACKET) 17 gm DAILY PO Last administered on 06/21/20 08:44; Start 06/19/20 at 14:00 Vitamin A/Vitamin D (Vitamin A & D Ointment) 1 linda BID TP Last administered on 06/21/20at 08:46; Start 06/19/20 at 21:00 Potassium Chloride (Klor-Con) 10 meq BIDWMEALS PO Last administered on 06/21/20at 08:37; Start 06/20/20 at 10:00 Micafungin Sodium 100 mg/Dextrose 100 ml @ 100 mls/hr Q24H IV Last administered on 06/21/20at 08:59; Start 06/20/20 at 10:00 Lactobacillus Rhamnosus (Culturelle) 1 cap BID PO Last administered on 06/21/20at 08:44; Start 06/20/20 at 21:00 Enoxaparin Sodium (Lovenox 40mg Syringe) 40 mg Q12HR SQ Last administered on 06/21/20at 08:51; Start 06/20/20 at 12:00 Active Scripts Active Reported Lisinopril 10 Mg Tablet 1 Tab PO DAILY Lantus Solostar (Insulin Glargine,Hum.rec.anlog) 100 Unit/1 Ml Insuln.pen 45 Unit SQ QHS Daily Value (Multivitamin) 1 Each Tablet 1 Tab PO DAILY 30 Days Colace (Docusate Sodium) 100 Mg Capsule 1 Cap PO BID 30 Days Mupirocin Cream (Mupirocin) 15 Gm Cream..g. 1 Linda TP BID 10 Days Potassium Chloride (Potassium Chloride) 20 Meq Tablet.er 20 Meq PO BID Polyethylene Glycol 3350 2,500 Gm Powder 17 Gm PO DAILY Pantoprazole Sodium (Pantoprazole Sodium) 40 Mg Tablet.dr 40 Mg PO DAILYAC Humalog (Insulin Lispro) 100 Unit/1 Ml Vial 4 Unit SQ TIDAC Dulcolax (Bisacodyl) 10 Mg Supp.rect 1 Supp RC DAILY PRN 10 Days Acetaminophen 325 Mg Tablet 2 Tab PO Q6HRS PRN 30 Days Percocet 5-325 Mg Tablet (Oxycodone/Acetaminophen) 1 Each Tablet 1 Tab PO Q6HRS PRN MDD 2 Tablet(s) 5 Days Furosemide 40 Mg Tablet 1 Tab PO DAILY Allergies Allergies: Coded Allergies: No Known Drug Allergies (Unverified , 01/31/18) Physical Exam General: Alert, Oriented X3, Cooperative, No acute distress Skin: Other (lateral pressure, some area is clean and granulating, area of full thickness necrosis 3-4 cm areas on both sides.) Vitals VITALS Vital Signs Date Time Temp Pulse Resp B/P (MAP) Pulse Ox O2 Delivery O2 Flow Rate FiO2 06/21/20 11:00 98.0 92 18 141/65 (90) 97 Nasal Cannula 2.0 98.0 Labs Labs Laboratory Tests Test 06/19/20 16:11 06/19/20 20:46 06/20/20 07:53 06/20/20 12:13 Glucose (Fingerstick) 170 mg/dL (70-99) 162 mg/dL (70-99) 130 mg/dL (70-99) 162 mg/dL (70-99) Test 06/20/20 17:57 06/20/20 21:11 06/21/20 07:57 06/21/20 12:04 Glucose (Fingerstick) 135 mg/dL (70-99) 141 mg/dL (70-99) 127 mg/dL (70-99) 161 mg/dL (70-99) Laboratory Tests Test 06/20/20 17:57 06/20/20 21:11 06/21/20 07:57 06/21/20 12:04 Glucose (Fingerstick) 135 mg/dL (70-99) 141 mg/dL (70-99) 127 mg/dL (70-99) 161 mg/dL (70-99) Assessment/Plan Assessment/Plan lateral sacral pressure necrosis. dry. no drainage. not infected. covering for general surgery group this weekend. does not need emergent debridment today. will discuss with surgery group and they will f/u. JUAQUIN GUZMAN MD Jun 21, 2020 13:15
[2020-06-21 15:00] VITALS: BP 157/88
[2020-06-21 19:00] VITALS: BP 135/57
[2020-06-21] MEDS: INSULIN GLARGINE SYRINGE. SQ SCH (21:44)
[2020-06-21 23:25] VITALS: BP 151/77
[2020-06-22 02:57] VITALS: BP 187/89
[2020-06-22] MEDS: oxyCODONE/APAP 5/325 1 TAB TABLET PO PRN ×3 (04:35→17:58)
[2020-06-22] MEDS: PIPERACILLIN/TAZOBACTAM 3.375 GM in IV NORMAL SALINE 50ML 50 ML IV SCH ×3 (05:08→17:31)
[2020-06-22 07:00] VITALS: BP 152/63
[2020-06-22] MEDS: ENOXAPARIN 40 MG/0.4 ML SYRINGE. SQ SCH ×2 (08:32→21:59)
[2020-06-22] MEDS: LACTOBACILLUS RHAMNOSUS GG 1 CAPSULE. PO SCH ×2 (08:33→21:59)
[2020-06-22] MEDS: MULTIVITAMIN with MINERAL TABLET. PO SCH (08:33)
[2020-06-22] MEDS: POTASSIUM CHLORIDE 20 MEQ TABLET.ER. PO SCH ×2 (08:33→17:31)
[2020-06-22] MEDS: FUROSEMIDE 40 MG TABLET. PO SCH (08:33)
[2020-06-22] MEDS: PANTOPRAZOLE 40 MG TABLET.DR. PO SCH (08:34)
[2020-06-22] MEDS: MUPIROCIN 2 % TOPICAL CREAM 30GM TUBE. TP SCH ×2 (08:34→22:00)
[2020-06-22] MEDS: DOCUSATE SODIUM 100 MG CAPSULE. PO SCH ×2 (08:34→21:59)
[2020-06-22] MEDS: VITS A & D/LANOLIN TOPICAL OINTMENT 42GM TUBE. TP SCH ×2 (08:34→22:00)
[2020-06-22] MEDS: POLYETHYLENE GLYCOL 3350 17 GM PACKET. PO SCH (08:35)
[2020-06-22] MEDS: INSULIN LISPRO 300 UNITS/3 ML VIAL. SQ SCH ×3 (08:43→17:51)
[2020-06-22] MEDS ORDERED: IOHEXOL 240 MG/ML 50ML VIAL. PO ONE (08:45)
[2020-06-22] MEDS ORDERED: CONTRAST GIVEN. MC PRN (09:00)
--- NOTE | 2020-06-22 09:28 | PDOC ---
Infectious Disease Note Subjective: Subjective Patient says feels better Had large bowel movement multiple yesterday Denies fever, nausea, vomiting, or diarrhea, shortness of breath or cough Discussed with RN Vital Signs: Vital Signs Vital Signs Date Time Temp Pulse Resp B/P (MAP) Pulse Ox O2 Delivery O2 Flow Rate FiO2 06/22/20 07:00 98.1 85 18 152/63 (92) 96 Room Air 98.1 06/22/20 02:57 2.0 Physical Exam: PHYSICAL EXAM GENERAL: Alert, awake male lying in bed comfortably, in no acute distress. HEENT: Normocephalic, atraumatic, anicteric. NECK: Supple, no JVD. LUNGS: Clear bilaterally. No wheezing. HEART: S1, S2. No gallops or murmurs. ABDOMEN: Soft, obese. Bowel sounds present, nontender, nondistended. GENITOURINARY: Duggan in place, which was placed today. EXTREMITIES: Trace edema, no cyanosis, no clubbing. DERMATOLOGIC: Warm, dry. No generalized rash. Skin breakdown, superficial decubitus ulcers extensively over the sacral and buttock area, diffuse bilaterally. PIV looks okay. Medications: Inpatient Meds: Medications reviewed. Labs: Lab Laboratory Tests Test 06/21/20 12:04 06/21/20 17:15 06/21/20 21:11 06/22/20 07:55 Glucose (Fingerstick) 161 mg/dL (70-99) 160 mg/dL (70-99) 134 mg/dL (70-99) 134 mg/dL (70-99) Objective: Assessment: 1. Sepsis from gram-negative bacteremia. 2. E. coli bacteremia POA. Source likely , Recurrent , had e coli bacteremia in May 10 2020 was sent to [facility] for urology work up 3. Constipation 4. Acute hypoxic respiratory failure, COVID-19 and influenza screen negative. 5. Diabetes. 6. Decubitus ulcers. 7. Generalized debility. 8. History of recent E. coli recurrent urosepsis. 9. Protein-calorie malnutrition. 10. Hyponatremia. 11. H/O Ureteral stone Plan: Plan of Care Cont zosyfabian micafungin will obtain repeat CT Abdomen and pelvis Patient did not have urology follow-up as outpatient for ureteral stone after discharge from [facility] off load Continue local wound care. Follow up labs and cultures. Continue supportive care. Discussed with WILI HALE MD Jun 22, 2020 09:28
--- NOTE | 2020-06-22 09:38 | PDOC ---
WHITLEY BRIONES [employer]IST 06/22/20 0938: SURGICAL PROGRESS NOTE DATE: 06/22/20 TIME: 09:34 Subjective thinks wound for at least 3 weeks, is unsure pretty immobile at this point Vital Signs Vital Signs Date Time Temp Pulse Resp B/P (MAP) Pulse Ox O2 Delivery O2 Flow Rate FiO2 06/22/20 07:00 98.1 85 18 152/63 (92) 96 Room Air 98.1 06/22/20 02:57 2.0 I&O Intake and Output 06/22/20 07:00 Intake Total 437 ml Output Total 2925 ml Balance -2488 ml Intake Oral 437 ml Output Urine Total 2925 ml General: Cooperative, No acute distress Skin: Other (sacral wound with necrosis bilaterally, areas of tissue bleeding noted ) Labs Laboratory Tests Test 06/20/20 12:13 06/20/20 17:57 06/20/20 21:11 06/21/20 07:57 Glucose (Fingerstick) 162 mg/dL (70-99) 135 mg/dL (70-99) 141 mg/dL (70-99) 127 mg/dL (70-99) Test 06/21/20 12:04 06/21/20 17:15 06/21/20 21:11 06/22/20 07:55 Glucose (Fingerstick) 161 mg/dL (70-99) 160 mg/dL (70-99) 134 mg/dL (70-99) 134 mg/dL (70-99) Laboratory Tests Test 06/21/20 12:04 06/21/20 17:15 06/21/20 21:11 06/22/20 07:55 Glucose (Fingerstick) 161 mg/dL (70-99) 160 mg/dL (70-99) 134 mg/dL (70-99) 134 mg/dL (70-99) Problem List Problems Medical Problems: (1) Decubitus ulcer Status: Acute (2) Hypoxia Status: Acute (3) Pneumonia Status: Acute (4) Sepsis Status: Acute Assessment/Plan poor surgical candidate, will review with Dr Noel--consider debridement , wound care other current issues including + blood cultures and concern for urosepsis with previous hx of this--ID is following Justicifation of Admission Dx: Justifications for Admission: Justification of Admission Dx: N/A KATE NOEL MD 06/22/202010: SURGICAL PROGRESS NOTE Assessment/Plan Pt out of room for imaging. Will f/u in AM. WHITLEY BRIONES [employer] MANAG[employer] SPECIALIST Jun 22, 2020 09:38 KATE NOEL MD Jun 22, 2020 20:11
--- NOTE | 2020-06-22 10:24 | PN ---
DATE: 06/22/2020 DAILY PROGRESS NOTE LOCATION: He is in room 252. SUBJECTIVE: This 60-year-old white male remains hospitalized with E. coli bacteremia and sepsis. He is improving and feels better. He complains of not being able to reposition in bed ____ and his TV remote not working. He overall states he is feeling somewhat better and wishes he could get up and move around some. OBJECTIVE: VITAL SIGNS: Stable. He is afebrile. CHEST: Clear. HEART: Regular. ABDOMEN: Benign. LABORATORY DATA: Urine in Duggan is clear. He does have the bilateral gluteal and sacral breakdown. IMPRESSION: 1. Sepsis from Escherichia coli bacteremia. Infectious Disease feels probably a gastrointestinal source, although with recent history of being urinary and question of a stone, I am not sure whether this is the case. 2. Acute hypoxic respiratory failure. 3. Diabetes with decent blood sugars. 4. Decubitus ulcers. 5. Generalized weakness. 6. Protein-calorie malnutrition. PLAN: Continue present antibiotics. We will begin to mobilize, going to get a CT abdomen to look for other sources for the sepsis. This to me at least is very confusing. BUSTER LEMONS MD DR: JAZIEL/helene JOB#: [id number] / [id number]
[2020-06-22 11:00] VITALS: BP 152/84
[2020-06-22] MEDS: MICAFUNGIN 100 MG in IV DEXTROSE 5% 100ML 100 ML IV SCH (11:00)
--- NOTE | 2020-06-22 12:47 | NUR ---
SS following up with discharge planning. SS reviewed pt chart and discussed with pt RN. Pt is LTC resident from [facility], ; fax [phone]. Pt is currently on room air. Pt has large wound on coccyx. Wound care and surgery consulted. COVID19 negative. Pt on IV Micafungin and IV Zosyn. PT/OT ordered. Pt transferred to room 671 today. CINTIA, Rocio, to follow.
[2020-06-22] MEDS ORDERED: MORPHINE SULFATE 10 MG/ML VIAL. IV ONE (14:15)
--- NOTE | 2020-06-22 14:35 | NUR ---
Patient has been given morphine 10mg IV x [address] scan per pt request to be medicated, preferably "out". Patient c/o discomfort frequently, asks to be put on back. Nurse has reinforced with patient that it is important for him to avoid laying on back due to wounds on bottom. Patient does not demonstrate understanding, continues to ask to lay flat on back. Repositioning frequently (30min to 2hrs max with use of wedge and pillows.)
[2020-06-22 15:22] VITALS: BP 146/83
--- NOTE | 2020-06-22 15:26 | RAD ---
EXAM: Abdomen and pelvis CT without intravenous contrast. HISTORY: Sepsis. TECHNIQUE: Computed tomographic images of the abdomen and pelvis were obtained without intravenous co ntrast. Multiplanar reformatting was performed. *One or more of the following individualized dose reduction techniques were utilized for this examina tion: 1. Automated exposure control. 2. Adjustment of the mA and/or kV according to patient size. 3. Use of iterative reconstruction technique. COMPARISON: 05/17/2020. FINDINGS: Evaluation of the lower thorax demonstrates small left greater than right pleural effusions . There is partially consolidated left lower lobe infiltrate superimposed on bilateral lower lobe and lingular atelectasis. There is incidental gynecomastia. There is cardiomegaly. No hepatic lesion is seen on this noncontrast exam. There is suspected sludge within the gallbladder. The pancreas, spleen and adrenal glands are unremarkable. There is no appendicitis. There is no maddie l obstruction. There is a left nephroureteral stent in expected position. The previously demonstrated proximal urete ral stone is not seen. There is no hydronephrosis. There is suspected tiny nonobstructing stones or v ascular calcifications within the inferior poles of both kidneys. There is gas within the urinary gena dder likely due to recent catheterization. There is aortobiiliac atherosclerosis. There are prominent retroperitoneal lymph nodes. There is a sm all fat-containing umbilical hernia. There is gas within the right ventral abdominal wall due to a me dication injection site. There is also gas within the bilateral buttock subcutaneous fat which may be postprocedural. There are healed right pubic rami fractures. There is a severe comminuted open fracture of L1. There are is a severe chronic appearing impression fracture of T7 with slight retropulsion of the cortex. T here are mild and moderate compression fractures throughout the remainder of the visualized lumbar sp ine. There is lower thoracic demonstrated posterior spinal fusion. There is grade 1 anterolisthesis w ith bilateral pars defects at L5-S1. There aren't bilateral sacral insufficiency fractures with sacro plasty changes. IMPRESSION: 1. Interval left nephroureteral stent placement. The recently demonstrated obstructing ureteral stone is no longer seen. There is gas within the bladder due to recent catheterization. 2. Punctate nonobstructing bilateral renal stones or vascular calcifications. 3. Open comminuted L1 compression fracture, stable compared to the prior study. There are additional more chronic appearing compression fractures throughout the thoracic and lumbar spine and there are s acral insufficiency fracture status post sacroplasty. 4. Small bilateral pleural effusions and partial left lower lobe consolidation superimposed on bilate ral lower lobe atelectasis. 5. Suspected gallbladder sludge. 6. Gas within the buttock subcutaneous fat, possibly postprocedural or due to a medication injection sites. Correlate with exam findings to exclude an infectious etiology. There is also gas within the r ight ventral abdominal wall due to an injection site. Electronically signed by: Argelia Bradford MD (06/22/2020 3:24 PM) [id number]
[2020-06-22 19:00] VITALS: BP 118/81
[2020-06-22] MEDS: INSULIN GLARGINE SYRINGE. SQ SCH (22:06)
[2020-06-22 22:41] VITALS: BP 130/74
[2020-06-23] MEDS: oxyCODONE/APAP 5/325 1 TAB TABLET PO PRN ×5 (00:24→21:27)
[2020-06-23] MEDS: PIPERACILLIN/TAZOBACTAM 3.375 GM in IV NORMAL SALINE 50ML 50 ML IV SCH ×4 (00:25→17:20)
[2020-06-23 03:00] VITALS: BP 135/74
[2020-06-23 07:00] VITALS: BP 135/78
[2020-06-23] MEDS: PANTOPRAZOLE 40 MG TABLET.DR. PO SCH (08:38)
[2020-06-23] MEDS: FUROSEMIDE 40 MG TABLET. PO SCH (08:38)
[2020-06-23] MEDS: POLYETHYLENE GLYCOL 3350 17 GM PACKET. PO SCH (08:38)
[2020-06-23] MEDS: DOCUSATE SODIUM 100 MG CAPSULE. PO SCH ×2 (08:38→21:27)
[2020-06-23] MEDS: MULTIVITAMIN with MINERAL TABLET. PO SCH (08:38)
[2020-06-23] MEDS: LACTOBACILLUS RHAMNOSUS GG 1 CAPSULE. PO SCH ×2 (08:38→21:27)
[2020-06-23] MEDS: POTASSIUM CHLORIDE 20 MEQ TABLET.ER. PO SCH ×2 (08:39→17:22)
--- NOTE | 2020-06-23 08:41 | PDOC ---
[facility] [employer] 06/23/20 0841: SURGICAL PROGRESS NOTE DATE: 06/23/20 TIME: 08:39 Subjective having breakfast sore with current position Vital Signs Vital Signs Date Time Temp Pulse Resp B/P (MAP) Pulse Ox O2 Delivery O2 Flow Rate FiO2 06/23/20 07:00 98.1 92 20 135/78 (97) 96 Room Air 98.1 06/22/20 20:00 2.0 I&O Intake and Output 06/23/20 07:00 Intake Total 1260 ml Output Total 1350 ml Balance -90 ml Intake Oral 1060 ml IV Total 200 ml Output Urine Total 1350 ml General: Oriented X3, Cooperative Abdomen: Soft Labs Laboratory Tests Test 06/21/20 12:04 06/21/20 17:15 06/21/20 21:11 06/22/20 07:55 Glucose (Fingerstick) 161 mg/dL (70-99) 160 mg/dL (70-99) 134 mg/dL (70-99) 134 mg/dL (70-99) Test 06/22/20 11:49 06/22/20 16:57 06/22/20 19:15 06/23/20 07:08 Glucose (Fingerstick) 169 mg/dL (70-99) 126 mg/dL (70-99) 151 mg/dL (70-99) 126 mg/dL (70-99) Laboratory Tests Test 06/22/20 11:49 06/22/20 16:57 06/22/20 19:15 06/23/20 07:08 Glucose (Fingerstick) 169 mg/dL (70-99) 126 mg/dL (70-99) 151 mg/dL (70-99) 126 mg/dL (70-99) Problem List Problems Medical Problems: (1) Decubitus ulcer Status: Acute (2) Hypoxia Status: Acute (3) Pneumonia Status: Acute (4) Sepsis Status: Acute Assessment/Plan CT reviewed, gas in sub q of buttock Sepsis from gram-negative bacteremia will plan debridement tomorrow, NPO after MN, hold lovenox today Justicifation of Admission Dx: Justifications for Admission: Justification of Admission Dx: N/A KATE PUENTE MD 06/23/20 190: SURGICAL PROGRESS NOTE Assessment/Plan Pt seen and examined. Agree with Ms. Briones's note Pt with c/o pain in BLE reviewed wound pictures. Plan debridement in AM [facility] [employer] ADVISOR Jun 23, 2020 08:41 KATE PUENTE MD Jun 23, 2020 19:02
--- NOTE | 2020-06-23 08:51 | PDOC ---
Infectious Disease Note Subjective: Subjective Patient feels the same Last bowel movement was 2 days ago Denies fever, nausea, vomiting, or diarrhea, shortness of breath or cough Discussed with RN Vital Signs: Vital Signs Vital Signs Date Time Temp Pulse Resp B/P (MAP) Pulse Ox O2 Delivery O2 Flow Rate FiO2 06/23/20 07:00 98.1 92 20 135/78 (97) 96 Room Air 98.1 06/22/20 20:00 2.0 Physical Exam: PHYSICAL EXAM GENERAL: Alert, awake male lying in bed comfortably, in no acute distress. HEENT: Normocephalic, atraumatic, anicteric. NECK: Supple, no JVD. LUNGS: Clear bilaterally. No wheezing. HEART: S1, S2. No gallops or murmurs. ABDOMEN: Soft, obese. Bowel sounds present, nontender, nondistended. GENITOURINARY: Duggan in place, which was placed today. EXTREMITIES: Trace edema, no cyanosis, no clubbing. DERMATOLOGIC: Warm, dry. No generalized rash. Skin breakdown, decubitus ulcer with necrotic eschar extensively over the sacral and buttock area, diffuse bilaterally. PIV looks okay. Medications: Inpatient Meds: Medications reviewed. Labs: Lab Laboratory Tests Test 06/22/20 11:49 06/22/20 16:57 06/22/20 19:15 06/23/20 07:08 Glucose (Fingerstick) 169 mg/dL (70-99) 126 mg/dL (70-99) 151 mg/dL (70-99) 126 mg/dL (70-99) Micro CT abdomen and pelvis IMPRESSION: 1. Interval left nephroureteral stent placement. The recently demonstrated obstructing ureteral stone is no longer seen. There is gas within the bladder due to recent catheterization. 2. Punctate nonobstructing bilateral renal stones or vascular calcifications. 3. Open comminuted L1 compression fracture, stable compared to the prior study. There are additional more chronic appearing compression fractures throughout the thoracic and lumbar spine and there are sacral insufficiency fracture status post sacroplasty. 4. Small bilateral pleural effusions and partial left lower lobe consolidation superimposed on bilateral lower lobe atelectasis. 5. Suspected gallbladder sludge. 6. Gas within the buttock subcutaneous fat, possibly postprocedural or due to a medication injection sites. Correlate with exam findings to exclude an infectious etiology. There is also gas within the right ventral abdominal wall due to an injection site. Objective: Assessment: 1. Sepsis from gram-negative bacteremia. 2. E. coli bacteremia POA. 3. Constipation 4. Acute hypoxic respiratory failure, COVID-19 and influenza screen negative. 5. Diabetes. 6. Decubitus ulcers with necrotic eschcar..CT reviewed 7. Generalized debility. 8. History of recent E. coli recurrent urosepsis. 9. Protein-calorie malnutrition. 10. Hyponatremia. 11. H/O Ureteral stone status post ureteral stent repeat CT shows no residual ureteral stone Patient was not seen in outpatient urology clinic due to not being in network per discussion with advanced urology service Plan: Plan of Care Cont zosyn micafungin Will add daptomycin CT Abdomen and pelvis reviewed .General surgery is planning for I&D Patient did not have urology follow-up as outpatient for left ureteral stent and further management of nephrolithiasis due to being out of network per discussion with urology at [facility] load Continue local wound care. Follow up labs and cultures. Continue supportive care. Discussed with wound team Upon discharge patient will need follow-up with urology who is in patient's network for stent management Discussed with WILI HALE MD Jun 23, 2020 08:51
[2020-06-23] MEDS: INSULIN LISPRO 300 UNITS/3 ML VIAL. SQ SCH ×3 (09:04→17:28)
[2020-06-23] MEDS: MICAFUNGIN 100 MG in IV DEXTROSE 5% 100ML 100 ML IV SCH (10:00)
[2020-06-23 11:00] VITALS: BP 144/88
[2020-06-23] MEDS: MUPIROCIN 2 % TOPICAL CREAM 30GM TUBE. TP SCH ×2 (11:35→21:28)
[2020-06-23] MEDS: VITS A & D/LANOLIN TOPICAL OINTMENT 42GM TUBE. TP SCH ×2 (11:35→21:28)
[2020-06-23] MEDS: DAPTOmycin (GENERIC) IVPB 640 MG in IV NORMAL SALINE 50ML 50 ML IV SCH (12:47)
[2020-06-23 15:00] VITALS: BP 137/64
--- NOTE | 2020-06-23 16:05 | NUR ---
SW following for discharge planning. Spoke with RN and reviewed chart. COVID result is negative. Surgery scheduled for tomorrow, 06/24. Pt on room air and IV Micafungin. Discharge plan is SNU to LTC at [facility]. CINTIA printed and faxed clinicals. Coordinated care with Akil. SW following.
[2020-06-23 19:00] VITALS: BP 138/72
[2020-06-23] MEDS: INSULIN GLARGINE SYRINGE. SQ SCH (21:31)
[2020-06-23 22:54] VITALS: BP 132/75
[2020-06-24] VITALS (11 sets, daily range): BP systolic 99–145; BP diastolic 72–93
[2020-06-24] MEDS: PIPERACILLIN/TAZOBACTAM 3.375 GM in IV NORMAL SALINE 50ML 50 ML IV SCH ×5 (01:02→23:53)
[2020-06-24] MEDS: oxyCODONE/APAP 5/325 1 TAB TABLET PO PRN ×5 (01:37→21:58)
--- NOTE | 2020-06-24 02:31 | PN ---
DATE: 06/23/2020 DAILY PROGRESS NOTE LOCATION: He is in room 671. SUBJECTIVE: This 60-year-old white male remains hospitalized with Escherichia coli bacteremia and sepsis. He is improving and feels better. He does not like the positioning that he is getting in the bed for his sacral and buttocks ulcers because it makes his back pain, due to the compression fracture, worse. OBJECTIVE: VITAL SIGNS: Stable. He is afebrile. CHEST: Clear. HEART: Regular. ABDOMEN: Benign. IMAGING: CT scanning shows of the abdomen and pelvis yesterday shows a left nephroureteral stent. There was no stone seen there any longer. He has the open comminuted L1 compression fracture that appears stable. Gas is seen within the buttocks, subcutaneous fat, which to me would be suspicious for infectious etiology given physical findings there. Surgery has been consulted, but he was out of the room yesterday and we will see him this morning regarding the same. Urine in the Duggan is clear. IMPRESSION: 1. Sepsis from Escherichia coli bacteremia, of uncertain etiology at this point in time, but suspicious for urine with it being the case recently. Also, I have to consider the decubitus ulcers as a source in addition. 2. Acute hypoxic respiratory failure, with improvement in the same and back on room air at this point in time. 3. Diabetes. 4. Decubitus ulcers. 5. Severe protein-calorie malnutrition. 6. Generalized weakness. PLAN: Continue antibiotics. ID help appreciated. We will see where Surgery believes we need to go with the buttocks and this is overall a very difficult problem. It was encouraged once again to him to contact us from a nutritional standpoint and try to put up with our positioning . BUSTER LEMONS MD DR: JAZIEL/ehlene JOB#: [id number] / [id number]
[2020-06-24] MEDS ORDERED: fentaNYL PF VIAL 100 MCG/2 ML VIAL IVP PRN ×2 (06:00)
[2020-06-24] MEDS ORDERED: IV RINGERS,LACTATED 1000ML 1,000 ML IV SCH (06:00)
[2020-06-24] MEDS ORDERED: PROCHLORPERAZINE 10 MG/2 ML VIAL. IVP PRN (06:00)
[2020-06-24] MEDS: PANTOPRAZOLE 40 MG TABLET.DR. PO SCH (07:30)
--- NOTE | 2020-06-24 07:49 | PDOC ---
Infectious Disease Note Subjective: Subjective Patient feels the same had bm Denies fever, nausea, vomiting, or diarrhea, shortness of breath or cough Discussed with RN Vital Signs: Vital Signs Vital Signs Date Time Temp Pulse Resp B/P (MAP) Pulse Ox O2 Delivery O2 Flow Rate FiO2 06/24/20 06:11 Room Air 06/24/20 03:00 97.8 90 19 135/75 (95) 95 97.8 06/23/20 20:00 2.0 Physical Exam: PHYSICAL EXAM GENERAL: Alert, awake male lying in bed comfortably, in no acute distress. HEENT: Normocephalic, atraumatic, anicteric. NECK: Supple, no JVD. LUNGS: Clear bilaterally. No wheezing. HEART: S1, S2. No gallops or murmurs. ABDOMEN: Soft, obese. Bowel sounds present, nontender, nondistended. GENITOURINARY: Duggan in place, which was placed today. EXTREMITIES: Trace edema, no cyanosis, no clubbing. DERMATOLOGIC: Warm, dry. No generalized rash. Skin breakdown, decubitus ulcer with necrotic eschar extensively over the sacral and buttock area, diffuse bilaterally. PIV looks okay. Medications: Inpatient Meds: Medications reviewed. Labs: Lab Laboratory Tests Test 06/23/20 10:29 06/23/20 16:27 06/23/20 19:02 06/24/20 07:35 Glucose (Fingerstick) 181 mg/dL (70-99) 165 mg/dL (70-99) 187 mg/dL (70-99) 154 mg/dL (70-99) Micro RUN DATE: 06/22/20 [facility] *LIVE* PAGE 1 RUN TIME: 0820 Specimen Inquiry PATIENT: LILI MONTEMAYOR ACCT: [id number] LOC: 2 [facility] U: [id number] AGE/SX: 60/M ROOM: 252 RE06/18/[address]: BUSTER LEMONS MD : 1960 BED: 1 DIS: STATUS: ADM IN TLOC: SPEC #: [id number] GABRIELE: 06/18/20 STATUS: COMP REQ #: [id number] RECD: 06/18/20-[address]: EVERARDO FRIAS MD SOURCE: BLOOD ENTR: 06/19/[address]: BUSTER LEMONS MD [facility]: ORDERED: KANE VÁSQUEZ - LC Procedure Result BLOOD CULTURE LC Final Final GRAM NEGATIVE RODS FINAL ID= [ESCHERICHIA COLI] ESCHERICHIA COLI ANTIMICROBIAL SUSCEPTIBILITY Final Comment NEG RAD 56 ESCHERICHIA COLI ANTIBIOTIC RESULT INTERPRETATION AMPICILLIN/SULBACTAM <=4/2 S AMIKACIN <=16 S AMPICILLIN <=8 S AMOXICILLIN/K CLAVULANATE <=8/4 S AZTREONAM <=4 S CEFTRIAXONE <=1 S CEFTAZIDIME <=1 S CEFOTAXIME <=2 S CEFOXITIN <=8 S CEFAZOLIN <=2 S CIPROFLOXACIN <=0.25 S CEFEPIME <=2 S CEFUROXIME <=4 S CEFTAZIDIME/AVIBACTAM <=4 S ERTAPENEM <=0.5 S GENTAMICIN <=2 S LEVOFLOXACIN <=0.5 S MEROPENEM <=1 S PIPERACILLIN/TAZOBACTAM <=8 S TRIMETHOPRIM/SULFAMETHOXAZOLE <=0.5/9.5 S TETRACYCLINE <=4 S TOBRAMYCIN <=2 S Unless otherwise specified, Testing Performed by: [address] [address] For Inquires, the Physician may contact the Microbiology department at [phone] CT abdomen and pelvis IMPRESSION: 1. Interval left nephroureteral stent placement. The recently demonstrated obstructing ureteral stone is no longer seen. There is gas within the bladder due to recent catheterization. 2. Punctate nonobstructing bilateral renal stones or vascular calcifications. 3. Open comminuted L1 compression fracture, stable compared to the prior study. There are additional more chronic appearing compression fractures throughout the thoracic and lumbar spine and there are sacral insufficiency fracture status post sacroplasty. 4. Small bilateral pleural effusions and partial left lower lobe consolidation superimposed on bilateral lower lobe atelectasis. 5. Suspected gallbladder sludge. 6. Gas within the buttock subcutaneous fat, possibly postprocedural or due to a medication injection sites. Correlate with exam findings to exclude an infectious etiology. There is also gas within the right ventral abdominal wall due to an injection site. Objective: Assessment: 1. Sepsis from gram-negative bacteremia. 2. E. coli bacteremia POA. 3. Constipation 4. Acute hypoxic respiratory failure, COVID-19 and influenza screen negative. 5. Diabetes. 6. Decubitus ulcers with necrotic eschcar..CT reviewed 7. Generalized debility. 8. History of recent E. coli recurrent urosepsis. 9. Protein-calorie malnutrition. 10. Hyponatremia. 11. H/O Ureteral stone status post ureteral stent repeat CT shows no residual ureteral stone Patient was not seen in outpatient urology clinic due to not being in network per discussion with advanced urology service Plan: Plan of Care Cont zosyn/micafungin/daptomycin CT Abdomen and pelvis reviewed .General surgery is planning for I&D Continue local wound care. Follow up labs and cultures. Continue supportive care. Offload Discussed with wound team Patient did not have urology follow-up as outpatient after last discharge from [facility] for left ureteral stent management due to being out of network per discussion with urology at [facility] Upon discharge patient will need follow-up with urology who is in patient's network for further ureteral stent management Discussed with WILI HALE MD Jun 24, 2020 07:49
[2020-06-24] MEDS: INSULIN LISPRO 300 UNITS/3 ML VIAL. SQ SCH ×3 (08:00→17:05)
[2020-06-24] MEDS: POTASSIUM CHLORIDE 20 MEQ TABLET.ER. PO SCH ×2 (08:00→17:02)
[2020-06-24] MEDS: LACTOBACILLUS RHAMNOSUS GG 1 CAPSULE. PO SCH ×2 (09:00→20:18)
[2020-06-24] MEDS: FUROSEMIDE 40 MG TABLET. PO SCH (09:00)
[2020-06-24] MEDS: POLYETHYLENE GLYCOL 3350 17 GM PACKET. PO SCH (09:00)
[2020-06-24] MEDS: DOCUSATE SODIUM 100 MG CAPSULE. PO SCH ×2 (09:00→20:17)
[2020-06-24] MEDS: MULTIVITAMIN with MINERAL TABLET. PO SCH (09:00)
[2020-06-24] MEDS: VITS A & D/LANOLIN TOPICAL OINTMENT 42GM TUBE. TP SCH ×2 (10:37→20:22)
[2020-06-24] MEDS: MICAFUNGIN 100 MG in IV DEXTROSE 5% 100ML 100 ML IV SCH (10:37)
[2020-06-24] MEDS: MUPIROCIN 2 % TOPICAL CREAM 30GM TUBE. TP SCH ×2 (10:38→20:21)
[2020-06-24] MEDS: DAPTOmycin (GENERIC) IVPB 640 MG in IV NORMAL SALINE 50ML 50 ML IV SCH (12:43)
[2020-06-24] MEDS ORDERED: MIDAZOLAM HCL/PF 2 MG/2 ML VIAL. ONE (12:45)
[2020-06-24] MEDS ORDERED: SEVOFLURANE 31 TO 60 MINUTES. IH ONE (12:45)
[2020-06-24] MEDS ORDERED: PROPOFOL 10 MG/ML (20ML) VIAL. IV ONE (12:46)
[2020-06-24] MEDS ORDERED: DEXAMETHASONE SOD PHOS 4 MG/ML VIAL ONE (12:46)
[2020-06-24] MEDS ORDERED: fentaNYL PF VIAL 100 MCG/2 ML VIAL ONE ×2 (12:46→14:13)
[2020-06-24] MEDS ORDERED: LIDOCAINE 2% PF 5 ML VIAL. ONE (12:46)
[2020-06-24] MEDS ORDERED: ONDANSETRON PF 4 MG/2 ML VIAL. ONE (12:46)
--- NOTE | 2020-06-24 13:01 | PDOC ---
SURGICAL PROGRESS NOTE DATE: 06/24/20 TIME: 13:00 Subjective Pre-Op Note 60 yo M with sacral ulcer TO OR for debridement. R/R/B/A d/w pt. Vital Signs Vital Signs Date Time Temp Pulse Resp B/P (MAP) Pulse Ox O2 Delivery O2 Flow Rate FiO2 06/24/20 12:20 97.2 82 24 154/78 98 Room Air 97.2 06/23/20 20:00 2.0 I&O Intake and Output 06/24/20 07:00 Intake Total 300 ml Output Total 3175 ml Balance -2875 ml Intake Oral 300 ml Output Urine Total 3175 ml Labs Laboratory Tests Test 06/22/20 16:57 06/22/20 19:15 06/23/20 07:08 06/23/20 10:29 Glucose (Fingerstick) 126 mg/dL (70-99) 151 mg/dL (70-99) 126 mg/dL (70-99) 181 mg/dL (70-99) Test 06/23/20 16:27 06/23/20 19:02 06/24/20 07:35 06/24/20 10:57 Glucose (Fingerstick) 165 mg/dL (70-99) 187 mg/dL (70-99) 154 mg/dL (70-99) 129 mg/dL (70-99) Laboratory Tests Test 06/23/20 16:27 06/23/20 19:02 06/24/20 07:35 06/24/20 10:57 Glucose (Fingerstick) 165 mg/dL (70-99) 187 mg/dL (70-99) 154 mg/dL (70-99) 129 mg/dL (70-99) Problem List Problems Medical Problems: (1) Decubitus ulcer Status: Acute (2) Hypoxia Status: Acute (3) Pneumonia Status: Acute (4) Sepsis Status: Acute Justicifation of Admission Dx: Justifications for Admission: Justification of Admission Dx: N/A KATE PUENTE MD Jun 24, 2020 13:01
[2020-06-24] MEDS ORDERED: BUPIVACAINE-EPI 0.5%-1:200000 MPF 30 ML VIAL. ONE (13:19)
[2020-06-24] MEDS ORDERED: MORPHINE SULFATE 2 MG/ML VIAL. ONE (14:59)
[2020-06-24] MEDS: MORPHINE SULFATE 2 MG/ML VIAL. IVP PRN ×2 (15:03→15:11)
[2020-06-24] MEDS ORDERED: HYDROmorphone 2 MG/ML VIAL ONE (15:21)
[2020-06-24] MEDS: HYDROmorphone 2 MG/ML VIAL IVP PRN ×2 (15:27→15:39)
--- NOTE | 2020-06-24 17:02 | NUR ---
CINTIA following for discharge planning. Spoke with RN and reviewed chart. Pt having surgery today. Wound care following. Coordinated care with Akil jacinto [facility]. Discharge plan remains SNU to LTC. CINTIA following. Addendum: 06/24/20 at 1703 by DAINEL CHAMBERLAIN Pt on IV Micafungin and Zosyn.
--- NOTE | 2020-06-24 20:14 | PDOC4 ---
OPERATIVE NOTE Date: Date: Jun 24, 2020 Pre-Op Diagnosis: Sacral decub ulcer Post-Op Diagnosis: same Procedure Performed: Excisional debridement of skin and subcutaneous tissue overlying sacrum Surgeon: Maxime Puente Anesthesia Type: GETA Blood Loss: 50 Specimans Obtained: sacral ulcer Findings: necrotic skin of sacral ulcer Complications: none Operative Note: After obtaining informed consent, patient was taken to OR, induced under GETA and prepped in the usual fashion in a left decub position. Cautery used to excised multiple ulcers covering sacrum. Dissection continued down to subcutaneous tissues and excised and sent to pathology. Hemostasis obtained with cautery. Wound packed with iodoform gauze. Dressing placed. Patient sent to PACU in stable condition. All counts correct. Wound class is 4. KATE PUENTE MD Jun 24, 2020 20:14
[2020-06-24] MEDS ORDERED: 0.9 % SODIUM CHLORIDE 10 ML DISP.SYRIN. IV PRN (20:15)
[2020-06-24] MEDS ORDERED: IV NORMAL SALINE 1000ML BAG 1,000 ML IV SCH (20:15)
[2020-06-24] MEDS ORDERED: NALOXONE 0.4 MG/ML VIAL. IV PRN (20:15)
[2020-06-24] MEDS: MORPHINE SULFATE 4 MG/ML VIAL. IV PRN ×2 (20:17→23:56)
[2020-06-24] MEDS: INSULIN GLARGINE SYRINGE. SQ SCH (20:31)
[2020-06-25] MEDS: oxyCODONE/APAP 5/325 1 TAB TABLET PO PRN ×4 (02:32→17:01)
[2020-06-25 03:00] VITALS: BP 130/74
[2020-06-25 04:00] LABS: BASO % 0 % (0-3); EOS % 0 % (0-3); HEMATOCRIT 31.7 % (39.0-53.0); HEMOGLOBIN 10.5 g/dL (13.0-17.5); LYMPH # 1.4 x10^3/uL (1.0-4.8); LYMPH % 30 % (24-48); MEAN CORPUSCULAR HEMOGLOBIN 29 pg (25-35); MEAN CORPUSCULAR HGB CONC 33 g/dL (31-37); MEAN CORPUSCULAR VOLUME 87 fL (79-100); MONO # 0.3 x10^3/uL (0.0-1.1); MONO % 7 % (0-9); NEUT # 3.1 x10^3/uL (1.8-7.7); NEUT % 64 % (31-73); PLATELET COUNT 278 x10^3/uL (140-400); RED BLOOD COUNT 3.64 x10^6/uL (4.30-5.70); WHITE BLOOD COUNT 4.8 x10^3/uL (4.0-11.0)
[2020-06-25 04:18] LABS: ALBUMIN 1.6 g/dL (3.4-5.0); ALBUMIN/GLOBULIN RATIO 0.3 (1.0-1.7); C-REACTIVE PROTEIN 120.9 mg/L (0-3.3); CALCIUM 8.6 mg/dL (8.5-10.1); CREATININE 0.6 mg/dL (0.7-1.3); GFR 137.9; POTASSIUM 4.5 mmol/L (3.5-5.1); TOTAL BILIRUBIN 0.4 mg/dL (0.2-1.0); TOTAL PROTEIN 7.2 g/dL (6.4-8.2)
[2020-06-25] MEDS: MORPHINE SULFATE 4 MG/ML VIAL. IV PRN ×4 (04:18→21:24)
[2020-06-25] MEDS: PIPERACILLIN/TAZOBACTAM 3.375 GM in IV NORMAL SALINE 50ML 50 ML IV SCH ×3 (06:39→16:58)
[2020-06-25 07:00] VITALS: BP 155/84
[2020-06-25] MEDS: POTASSIUM CHLORIDE 20 MEQ TABLET.ER. PO SCH ×2 (08:36→16:59)
[2020-06-25] MEDS: POLYETHYLENE GLYCOL 3350 17 GM PACKET. PO SCH (08:36)
[2020-06-25] MEDS: FUROSEMIDE 40 MG TABLET. PO SCH (08:36)
[2020-06-25] MEDS: MULTIVITAMIN with MINERAL TABLET. PO SCH (08:36)
[2020-06-25] MEDS: PANTOPRAZOLE 40 MG TABLET.DR. PO SCH (08:36)
[2020-06-25] MEDS: LACTOBACILLUS RHAMNOSUS GG 1 CAPSULE. PO SCH ×2 (08:36→22:03)
[2020-06-25] MEDS: DOCUSATE SODIUM 100 MG CAPSULE. PO SCH ×2 (08:36→22:03)
[2020-06-25] MEDS: MUPIROCIN 2 % TOPICAL CREAM 30GM TUBE. TP SCH ×2 (08:39→21:00)
[2020-06-25] MEDS: VITS A & D/LANOLIN TOPICAL OINTMENT 42GM TUBE. TP SCH ×2 (08:39→21:00)
[2020-06-25] MEDS: INSULIN LISPRO 300 UNITS/3 ML VIAL. SQ SCH ×3 (08:40→17:08)
--- NOTE | 2020-06-25 09:34 | PDOC ---
Infectious Disease Note Subjective: Subjective Patient complains of postop site pain Denies fever, nausea, vomiting, shortness of breath or cough Vital Signs: Vital Signs Vital Signs Date Time Temp Pulse Resp B/P (MAP) Pulse Ox O2 Delivery O2 Flow Rate FiO2 06/25/20 08:35 17 Room Air 06/25/20 07:00 98.6 78 155/84 (107) 96 98.6 06/24/20 15:41 2 Physical Exam: PHYSICAL EXAM GENERAL: Alert, awake male lying in bed comfortably, in no acute distress. HEENT: Normocephalic, atraumatic, anicteric. NECK: Supple, no JVD. LUNGS: Clear bilaterally. No wheezing. HEART: S1, S2. No gallops or murmurs. ABDOMEN: Soft, obese. Bowel sounds present, nontender, nondistended. GENITOURINARY: Duggan in place, which was placed today. EXTREMITIES: Trace edema, no cyanosis, no clubbing. DERMATOLOGIC: Warm, dry. No generalized rash. Skin breakdown, decubitus ulcer with necrotic eschar extensively over the sacral and buttock area, diffuse bilaterally. PIV looks okay. Medications: Inpatient Meds: Medications reviewed. Labs: Lab Laboratory Tests Test 06/24/20 10:57 06/24/20 14:45 06/24/20 16:10 06/24/20 19:06 Glucose (Fingerstick) 129 mg/dL (70-99) 123 mg/dL (70-99) 142 mg/dL (70-99) 258 mg/dL (70-99) Test 06/25/20 03:35 06/25/20 07:11 White Blood Count 4.8 x10^3/uL (4.0-11.0) Red Blood Count 3.64 x10^6/uL (4.30-5.70) Hemoglobin 10.5 g/dL (13.0-17.5) Hematocrit 31.7 % (39.0-53.0) Mean Corpuscular Volume 87 fL (79-100) Mean Corpuscular Hemoglobin 29 pg (25-35) Mean Corpuscular Hemoglobin Concent 33 g/dL (31-37) Red Cell Distribution Width 17.0 % (11.5-14.5) Platelet Count 278 x10^3/uL (140-400) Neutrophils (%) (Auto) 64 % (31-73) Lymphocytes (%) (Auto) 30 % (24-48) Monocytes (%) (Auto) 7 % (0-9) Eosinophils (%) (Auto) 0 % (0-3) Basophils (%) (Auto) 0 % (0-3) Neutrophils # (Auto) 3.1 x10^3/uL (1.8-7.7) Lymphocytes # (Auto) 1.4 x10^3/uL (1.0-4.8) Monocytes # (Auto) 0.3 x10^3/uL (0.0-1.1) Eosinophils # (Auto) 0.0 x10^3/uL (0.0-0.7) Basophils # (Auto) 0.0 x10^3/uL (0.0-0.2) Erythrocyte Sedimentation Rate 127 (0-15) Sodium Level 136 mmol/L (136-145) Potassium Level 4.5 mmol/L (3.5-5.1) Chloride Level 102 mmol/L (98-107) Carbon Dioxide Level 27 mmol/L (21-32) Anion Gap 7 (6-14) Blood Urea Nitrogen 11 mg/dL (8-26) Creatinine 0.6 mg/dL (0.7-1.3) Estimated GFR (Cockcroft-Gault) 137.9 BUN/Creatinine Ratio 18 (6-20) Glucose Level 232 mg/dL (70-99) Calcium Level 8.6 mg/dL (8.5-10.1) Total Bilirubin 0.4 mg/dL (0.2-1.0) Aspartate Amino Transf (AST/SGOT) 27 U/L (15-37) Alanine Aminotransferase (ALT/SGPT) 25 U/L (16-63) Alkaline Phosphatase 200 U/L (46-116) C-Reactive Protein, Quantitative 120.9 mg/L (0-3.3) Total Protein 7.2 g/dL (6.4-8.2) Albumin 1.6 g/dL (3.4-5.0) Albumin/Globulin Ratio 0.3 (1.0-1.7) Glucose (Fingerstick) 221 mg/dL (70-99) Micro RUN DATE: 06/22/20 [facility] *LIVE* PAGE 1 RUN TIME: 08 Specimen Inquiry PATIENT: LILI MONTEMAYOR ACCT: [id number] LOC: [address] [place] [address] U: [id number] AGE/SX: 60/M ROOM: [facility] RE06/18/[address]: BUSTER LEMONS MD : 1960 BED: 1 DIS: STATUS: ADM IN TLOC: - SPEC #: [id number] GABRIELE: 06/18/20-1599 STATUS: COMP REQ #: [id number] RECD: 06/18/20-[address]: EVERARDO FRIAS MD SOURCE: BLOOD ENTR: 06/19/20-[address] [facility] [address]: BUSTER LEMONS MD [facility]: ORDERED: KANE CULT - LC Procedure Result BLOOD CULTURE LC Final Final GRAM NEGATIVE RODS FINAL ID= [ESCHERICHIA COLI] ESCHERICHIA COLI ANTIMICROBIAL SUSCEPTIBILITY Final Comment NEG RAD 56 ESCHERICHIA COLI ANTIBIOTIC RESULT INTERPRETATION AMPICILLIN/SULBACTAM <=4/2 S AMIKACIN <=16 S AMPICILLIN <=8 S AMOXICILLIN/K CLAVULANATE <=8/4 S AZTREONAM <=4 S CEFTRIAXONE <=1 S CEFTAZIDIME <=1 S CEFOTAXIME <=2 S CEFOXITIN <=8 S CEFAZOLIN <=2 S CIPROFLOXACIN <=0.25 S CEFEPIME <=2 S CEFUROXIME <=4 S CEFTAZIDIME/AVIBACTAM <=4 S ERTAPENEM <=0.5 S GENTAMICIN <=2 S LEVOFLOXACIN <=0.5 S MEROPENEM <=1 S PIPERACILLIN/TAZOBACTAM <=8 S TRIMETHOPRIM/SULFAMETHOXAZOLE <=0.5/9.5 S TETRACYCLINE <=4 S TOBRAMYCIN <=2 S Unless otherwise specified, Testing Performed by: [address] [address] For Inquires, the Physician may contact the Microbiology department at [phone] CT abdomen and pelvis IMPRESSION: 1. Interval left nephroureteral stent placement. The recently demonstrated obstructing ureteral stone is no longer seen. There is gas within the bladder due to recent catheterization. 2. Punctate nonobstructing bilateral renal stones or vascular calcifications. 3. Open comminuted L1 compression fracture, stable compared to the prior study. There are additional more chronic appearing compression fractures throughout the thoracic and lumbar spine and there are sacral insufficiency fracture status post sacroplasty. 4. Small bilateral pleural effusions and partial left lower lobe consolidation superimposed on bilateral lower lobe atelectasis. 5. Suspected gallbladder sludge. 6. Gas within the buttock subcutaneous fat, possibly postprocedural or due to a medication injection sites. Correlate with exam findings to exclude an infectious etiology. There is also gas within the right ventral abdominal wall due to an injection site. Objective: Assessment: 1. Sepsis from gram-negative bacteremia. 2. E. coli bacteremia POA. 3. Constipation 4. Acute hypoxic respiratory failure, COVID-19 and influenza screen negative. 5. Diabetes. 6. Decubitus ulcers with necrotic eschcar..CT reviewed June 24 2020 S/P Excisional debridement of skin and subcutaneous tissue overlying sacrum 7. Generalized debility. 8. History of recent E. coli recurrent urosepsis. 9. Protein-calorie malnutrition. 10. Hyponatremia. 11. H/O Ureteral stone status post ureteral stent repeat CT shows no residual ureteral stone Patient was not seen in outpatient urology clinic due to not being in network per discussion with advanced urology service Plan: Plan of Care Cont zosyn/micafungin/daptomycin F/U Intraop cults Continue local wound care. Follow up labs Continue supportive care. Offload Discussed with wound team Patient did not have urology follow-up as outpatient after last discharge from [facility] for left ureteral stent management due to being out of network per discussion with urology at [facility] Upon discharge patient will need follow-up with urology who is in patient's network for further ureteral stent management Discussed with WILI HALE MD Jun 25, 2020 09:34
[2020-06-25 11:00] VITALS: BP 127/72
[2020-06-25] MEDS: MICAFUNGIN 100 MG in IV DEXTROSE 5% 100ML 100 ML IV SCH (11:08)
--- NOTE | 2020-06-25 12:00 | PDOC ---
SURGICAL PROGRESS NOTE DATE: 06/25/20 TIME: 11:59 Subjective having breakfast reports minimal pain Vital Signs Vital Signs Date Time Temp Pulse Resp B/P (MAP) Pulse Ox O2 Delivery O2 Flow Rate FiO2 06/25/20 11:09 17 Room Air 06/25/20 11:00 98.4 85 127/72 (90) 93 98.4 06/24/20 15:41 2 I&O Intake and Output 06/25/20 07:00 Intake Total 1230 ml Output Total 2100 ml Balance -870 ml Intake Oral 930 ml IV Total 300 ml Output Urine Total 2050 ml Estimated Blood Loss 50 ml General: Alert, Cooperative Skin: Other (dressing not viewed, eating during rounds ) Labs Laboratory Tests Test 06/23/20 16:27 06/23/20 19:02 06/24/20 07:35 06/24/20 10:57 Glucose (Fingerstick) 165 mg/dL (70-99) 187 mg/dL (70-99) 154 mg/dL (70-99) 129 mg/dL (70-99) Test 06/24/20 14:45 06/24/20 16:10 06/24/20 19:06 06/25/20 03:35 Glucose (Fingerstick) 123 mg/dL (70-99) 142 mg/dL (70-99) 258 mg/dL (70-99) White Blood Count 4.8 x10^3/uL (4.0-11.0) Red Blood Count 3.64 x10^6/uL (4.30-5.70) Hemoglobin 10.5 g/dL (13.0-17.5) Hematocrit 31.7 % (39.0-53.0) Mean Corpuscular Volume 87 fL (79-100) Mean Corpuscular Hemoglobin 29 pg (25-35) Mean Corpuscular Hemoglobin Concent 33 g/dL (31-37) Red Cell Distribution Width 17.0 % (11.5-14.5) Platelet Count 278 x10^3/uL (140-400) Neutrophils (%) (Auto) 64 % (31-73) Lymphocytes (%) (Auto) 30 % (24-48) Monocytes (%) (Auto) 7 % (0-9) Eosinophils (%) (Auto) 0 % (0-3) Basophils (%) (Auto) 0 % (0-3) Neutrophils # (Auto) 3.1 x10^3/uL (1.8-7.7) Lymphocytes # (Auto) 1.4 x10^3/uL (1.0-4.8) Monocytes # (Auto) 0.3 x10^3/uL (0.0-1.1) Eosinophils # (Auto) 0.0 x10^3/uL (0.0-0.7) Basophils # (Auto) 0.0 x10^3/uL (0.0-0.2) Erythrocyte Sedimentation Rate 127 (0-15) Sodium Level 136 mmol/L (136-145) Potassium Level 4.5 mmol/L (3.5-5.1) Chloride Level 102 mmol/L (98-107) Carbon Dioxide Level 27 mmol/L (21-32) Anion Gap 7 (6-14) Blood Urea Nitrogen 11 mg/dL (8-26) Creatinine 0.6 mg/dL (0.7-1.3) Estimated GFR (Cockcroft-Gault) 137.9 BUN/Creatinine Ratio 18 (6-20) Glucose Level 232 mg/dL (70-99) Calcium Level 8.6 mg/dL (8.5-10.1) Total Bilirubin 0.4 mg/dL (0.2-1.0) Aspartate Amino Transf (AST/SGOT) 27 U/L (15-37) Alanine Aminotransferase (ALT/SGPT) 25 U/L (16-63) Alkaline Phosphatase 200 U/L (46-116) C-Reactive Protein, Quantitative 120.9 mg/L (0-3.3) Total Protein 7.2 g/dL (6.4-8.2) Albumin 1.6 g/dL (3.4-5.0) Albumin/Globulin Ratio 0.3 (1.0-1.7) Test 06/25/20 07:11 06/25/20 11:35 Glucose (Fingerstick) 221 mg/dL (70-99) 224 mg/dL (70-99) Laboratory Tests Test 06/24/20 14:45 06/24/20 16:10 06/24/20 19:06 06/25/20 03:35 Glucose (Fingerstick) 123 mg/dL (70-99) 142 mg/dL (70-99) 258 mg/dL (70-99) White Blood Count 4.8 x10^3/uL (4.0-11.0) Red Blood Count 3.64 x10^6/uL (4.30-5.70) Hemoglobin 10.5 g/dL (13.0-17.5) Hematocrit 31.7 % (39.0-53.0) Mean Corpuscular Volume 87 fL (79-100) Mean Corpuscular Hemoglobin 29 pg (25-35) Mean Corpuscular Hemoglobin Concent 33 g/dL (31-37) Red Cell Distribution Width 17.0 % (11.5-14.5) Platelet Count 278 x10^3/uL (140-400) Neutrophils (%) (Auto) 64 % (31-73) Lymphocytes (%) (Auto) 30 % (24-48) Monocytes (%) (Auto) 7 % (0-9) Eosinophils (%) (Auto) 0 % (0-3) Basophils (%) (Auto) 0 % (0-3) Neutrophils # (Auto) 3.1 x10^3/uL (1.8-7.7) Lymphocytes # (Auto) 1.4 x10^3/uL (1.0-4.8) Monocytes # (Auto) 0.3 x10^3/uL (0.0-1.1) Eosinophils # (Auto) 0.0 x10^3/uL (0.0-0.7) Basophils # (Auto) 0.0 x10^3/uL (0.0-0.2) Erythrocyte Sedimentation Rate 127 (0-15) Sodium Level 136 mmol/L (136-145) Potassium Level 4.5 mmol/L (3.5-5.1) Chloride Level 102 mmol/L (98-107) Carbon Dioxide Level 27 mmol/L (21-32) Anion Gap 7 (6-14) Blood Urea Nitrogen 11 mg/dL (8-26) Creatinine 0.6 mg/dL (0.7-1.3) Estimated GFR (Cockcroft-Gault) 137.9 BUN/Creatinine Ratio 18 (6-20) Glucose Level 232 mg/dL (70-99) Calcium Level 8.6 mg/dL (8.5-10.1) Total Bilirubin 0.4 mg/dL (0.2-1.0) Aspartate Amino Transf (AST/SGOT) 27 U/L (15-37) Alanine Aminotransferase (ALT/SGPT) 25 U/L (16-63) Alkaline Phosphatase 200 U/L (46-116) C-Reactive Protein, Quantitative 120.9 mg/L (0-3.3) Total Protein 7.2 g/dL (6.4-8.2) Albumin 1.6 g/dL (3.4-5.0) Albumin/Globulin Ratio 0.3 (1.0-1.7) Test 06/25/20 07:11 06/25/20 11:35 Glucose (Fingerstick) 221 mg/dL (70-99) 224 mg/dL (70-99) Problem List Problems Medical Problems: (1) Decubitus ulcer Status: Acute (2) Hypoxia Status: Acute (3) Pneumonia Status: Acute (4) Sepsis Status: Acute Assessment/Plan wound care to for ongoing dressing needs Justicifation of Admission Dx: Justifications for Admission: Justification of Admission Dx: N/A WHITLEY BRIONES APRN Jun 25, 2020 12:00
--- NOTE | 2020-06-25 13:38 | PN ---
DATE: 06/24/2020 LOCATION: He is in Room 671. SUBJECTIVE: This 60-year-old remains hospitalized with E. coli bacteremia and sepsis. He was initially hypoxic, but this has resolved. His major complaints are pain in his back and he does not like the positioning for his decubitus ulcers because it makes his back pain from the lumbar fracture worse. He is ready to have surgery today if it will help. OBJECTIVE: VITAL SIGNS: Stable. He is afebrile. CHEST: Clear. HEART: Regular. ABDOMEN: Benign. He appears uncomfortable. IMPRESSION: 1. Sepsis from Escherichia coli bacteremia of uncertain source at this point. With CT scanning of the abdomen negative, certainly I would lean towards ureteral stent possibly being infected, although his urine was clear at the time of admission. The decubitus ulcers were also a possible source. 2. Acute hypoxic respiratory failure with resolution. 3. Diabetes. 4. Decubitus ulcers. 5. Severe protein-calorie malnutrition. 6. Generalized weakness. PLAN: Continue antibiotic cocktail per ID. I and D planned by surgery today. Hopefully, surgical cultures will be helpful regarding further therapy. CHAD/ROZINA DR: Kobi TID: [id number]
[2020-06-25 15:00] VITALS: BP 134/76
--- NOTE | 2020-06-25 15:03 | NUR ---
CINTIA following for discharge planning. Spoke with RN and reviewed chart. Pt remains on IV abx. Coordinated care with Akil from [facility]. Discharge plan remains SNU to LTC. SW following.
[2020-06-25] MEDS: DAPTOmycin (GENERIC) IVPB 640 MG in IV NORMAL SALINE 50ML 50 ML IV SCH (15:15)
--- NOTE | 2020-06-25 15:36 | NUR ---
Wound/Ostomy Care Wound Type/Assessment: Wound care follow up for vac application on bilateral buttocks, s/p I&D 06/[address] Noel. Pt also has healing skin tear to RFA and left knee. Bilateral buttocks are necrotic with fat layer exposed and excoriated periwound. Treatment Recommendations/Plan: Cleansed wound, applied collagen to open areas on periwound, covered periwound with 4" ostomy rings. and applied veraflo cleanse wound vac to all 6 open wounds. Vac setting 125 mmHg continuous with 36ml NS cleanse for 5 minutes every 3 hours, change 2-3 times weekly Education provided: PU prevention discussed with pt but he still refused to turn on a side to offload wounds. Offloading surface/device: TQ2H with purple wedge Recommended Referrals/Tests: na Discharge Recommendations for dressings: pt will need wound vac upon discharge.
[2020-06-25 19:36] VITALS: BP 136/72
[2020-06-25] MEDS: INSULIN GLARGINE SYRINGE. SQ SCH (22:09)
[2020-06-25 23:30] VITALS: BP 138/77
[2020-06-26] MEDS: PIPERACILLIN/TAZOBACTAM 3.375 GM in IV NORMAL SALINE 50ML 50 ML IV SCH ×4 (00:32→17:53)
[2020-06-26] MEDS: oxyCODONE/APAP 5/325 1 TAB TABLET PO PRN ×5 (00:37→22:51)
[2020-06-26] MEDS: MORPHINE SULFATE 4 MG/ML VIAL. IV PRN ×4 (03:04→20:42)
[2020-06-26 03:21] VITALS: BP 144/92
--- NOTE | 2020-06-26 04:57 | PN ---
DATE: 06/25/2020 LOCATION: He is in Room 671. SUBJECTIVE: This 60-year-old white male remains hospitalized with E. coli bacteremia and sepsis. Initial hypoxia has resolved. His major complaints at this point in time include pain in his back and it continued throughout the leg with positioning yesterday for his decubitus ulcers. He had lot of pain throughout the night, requiring some IV morphine, but it is somewhat better this morning. He did have debridement of his sacral area yesterday down to subcutaneous tissue. OBJECTIVE: VITAL SIGNS: Stable. He is afebrile. CHEST: Clear. HEART: Regular. ABDOMEN: Benign. LABORATORY DATA: His sugars are higher today after surgery. Initial Gram stain culture shows E. coli and Staph epidermidis in small amounts and this I suppose could be the source of his bacteremia sepsis on admission. IMPRESSION: 1. Sepsis from Escherichia coli bacteremia of urinary or skin source. 2. Acute hypoxic respiratory failure, improved. 3. Diabetes with higher sugars today. 4. Decubitus ulcer status post debridement. 5. Severe protein-calorie malnutrition. 6. Generalized weakness. PLAN: Continue present antibiotics. Await cultures and sensitivities from surgery. Otherwise, continue supportive care. CHAD DR: Kobi TID: [id number]
[2020-06-26 07:35] VITALS: BP 139/73
--- NOTE | 2020-06-26 08:09 | PN ---
DATE: 06/26/2020 LOCATION: The patient is in room #671. SUBJECTIVE: This 60-year-old white male remains hospitalized with E. coli bacteremia and sepsis. Initial hypoxia has resolved. He continues to have back pain. He is status post debridement of his decubitus ulcers with final cultures pending. OBJECTIVE: VITAL SIGNS: Stable. He is afebrile. CHEST: Clear. HEART: Regular. ABDOMEN: Benign. LABORATORY DATA: Sugars are somewhat better today. Still waiting again on cultures from surgery to grow out. IMPRESSION: 1. Sepsis from Escherichia coli bacteremia of urinary or skin source. 2. Acute hypoxic respiratory failure, resolved. 3. Diabetes mellitus. 4. Decubitus ulcer, status post debridement. 5. Severe protein calorie malnutrition. 6. Generalized weakness. PLAN: Continue present antibiotics. Await final cultures. ID help appreciated. I see and notes that therapy was not going to work with him because he is felt to be a care home resident long-term and I did not agree with this at 60. He has been living at home by himself prior to becoming ill with E. coli sepsis and should be able to rehab back to an independent status at some point if given the chance and can keep him clear of infection. MAKENZIE DR: Kobi TID: [id number]
[2020-06-26] MEDS: PANTOPRAZOLE 40 MG TABLET.DR. PO SCH (08:36)
[2020-06-26] MEDS: INSULIN LISPRO 300 UNITS/3 ML VIAL. SQ SCH ×3 (08:42→18:02)
[2020-06-26] MEDS: POLYETHYLENE GLYCOL 3350 17 GM PACKET. PO SCH (09:00)
[2020-06-26] MEDS: MUPIROCIN 2 % TOPICAL CREAM 30GM TUBE. TP SCH ×2 (09:00→21:00)
[2020-06-26] MEDS: VITS A & D/LANOLIN TOPICAL OINTMENT 42GM TUBE. TP SCH ×2 (09:00→21:00)
[2020-06-26] MEDS: DOCUSATE SODIUM 100 MG CAPSULE. PO SCH ×2 (11:04→20:53)
[2020-06-26] MEDS: MULTIVITAMIN with MINERAL TABLET. PO SCH (11:04)
[2020-06-26] MEDS: LACTOBACILLUS RHAMNOSUS GG 1 CAPSULE. PO SCH ×2 (11:04→20:49)
[2020-06-26] MEDS: POTASSIUM CHLORIDE 20 MEQ TABLET.ER. PO SCH ×2 (11:05→17:52)
[2020-06-26] MEDS: MICAFUNGIN 100 MG in IV DEXTROSE 5% 100ML 100 ML IV SCH (11:06)
--- NOTE | 2020-06-26 11:07 | PDOC ---
Infectious Disease Note Subjective: Subjective Patient feels better Postop pain is under control Denies fever, nausea, vomiting, shortness of breath or cough Vital Signs: Vital Signs Vital Signs Date Time Temp Pulse Resp B/P (MAP) Pulse Ox O2 Delivery O2 Flow Rate FiO2 06/26/20 08:36 19 Room Air 06/26/20 07:35 97.8 85 139/73 (95) 95 97.8 06/25/20 17:01 2.0 Physical Exam: PHYSICAL EXAM GENERAL: Alert, awake male lying in bed comfortably, in no acute distress. HEENT: Normocephalic, atraumatic, anicteric. NECK: Supple, no JVD. LUNGS: Clear bilaterally. No wheezing. HEART: S1, S2. No gallops or murmurs. ABDOMEN: Soft, obese. Bowel sounds present, nontender, nondistended. GENITOURINARY: Duggan in place, which was placed today. EXTREMITIES: Trace edema, no cyanosis, no clubbing. DERMATOLOGIC: Warm, dry. No generalized rash. Skin breakdown, decubitus ulcer with necrotic eschar extensively over the sacral and buttock area, diffuse bilaterally. PIV looks okay. Medications: Inpatient Meds: Medications reviewed. Labs: Lab Laboratory Tests Test 06/25/20 11:35 06/25/20 16:39 06/25/20 20:11 06/26/20 07:07 Glucose (Fingerstick) 224 mg/dL (70-99) 177 mg/dL (70-99) 182 mg/dL (70-99) 124 mg/dL (70-99) Micro RUN DATE: 06/22/20 [facility] *LIVE* PAGE 1 RUN TIME: 0820 Specimen Inquiry PATIENT: LILI MONTEMAYOR ACCT: [id number] LOC: 2 [facility] U: [id number] AGE/SX: 60/M ROOM: 252 RE06/18/[address]: BUSTER LEMONS MD : 1960 BED: 1 DIS: STATUS: ADM IN TLOC: SPEC #: [id number] GABRIELE: 06/18/20 STATUS: COMP REQ #: [id number] RECD: 06/18/[address]: EVERARDO FRIAS MD SOURCE: BLOOD ENTR: 06/19/[address] [facility] [address]: BUSTER LEMONS MD [facility]: ORDERED: KANE CULT - LC Procedure Result BLOOD CULTURE LC Final Final GRAM NEGATIVE RODS FINAL ID= [ESCHERICHIA COLI] ESCHERICHIA COLI ANTIMICROBIAL SUSCEPTIBILITY Final Comment NEG RAD 56 ESCHERICHIA COLI ANTIBIOTIC RESULT INTERPRETATION AMPICILLIN/SULBACTAM <=4/2 S AMIKACIN <=16 S AMPICILLIN <=8 S AMOXICILLIN/K CLAVULANATE <=8/4 S AZTREONAM <=4 S CEFTRIAXONE <=1 S CEFTAZIDIME <=1 S CEFOTAXIME <=2 S CEFOXITIN <=8 S CEFAZOLIN <=2 S CIPROFLOXACIN <=0.25 S CEFEPIME <=2 S CEFUROXIME <=4 S CEFTAZIDIME/AVIBACTAM <=4 S ERTAPENEM <=0.5 S GENTAMICIN <=2 S LEVOFLOXACIN <=0.5 S MEROPENEM <=1 S PIPERACILLIN/TAZOBACTAM <=8 S TRIMETHOPRIM/SULFAMETHOXAZOLE <=0.5/9.5 S TETRACYCLINE <=4 S TOBRAMYCIN <=2 S Unless otherwise specified, Testing Performed by: [address] [address] For Inquires, the Physician may contact the Microbiology department at [phone] CT abdomen and pelvis IMPRESSION: 1. Interval left nephroureteral stent placement. The recently demonstrated obstructing ureteral stone is no longer seen. There is gas within the bladder due to recent catheterization. 2. Punctate nonobstructing bilateral renal stones or vascular calcifications. 3. Open comminuted L1 compression fracture, stable compared to the prior study. There are additional more chronic appearing compression fractures throughout the thoracic and lumbar spine and there are sacral insufficiency fracture status post sacroplasty. 4. Small bilateral pleural effusions and partial left lower lobe consolidation superimposed on bilateral lower lobe atelectasis. 5. Suspected gallbladder sludge. 6. Gas within the buttock subcutaneous fat, possibly postprocedural or due to a medication injection sites. Correlate with exam findings to exclude an infectious etiology. There is also gas within the right ventral abdominal wall due to an injection site. Objective: Assessment: 1. Sepsis from gram-negative bacteremia. 2. E. coli bacteremia POA. 3. Constipation 4. Acute hypoxic respiratory failure, COVID-19 and influenza screen negative. 5. Diabetes. 6. Decubitus ulcers with necrotic eschcar..CT reviewed June 24 2020 S/P Excisional debridement of skin and subcutaneous tissue overlying sacrum cults E. coli and staph epidermidis 7. Generalized debility. 8. History of recent E. coli recurrent urosepsis. 9. Protein-calorie malnutrition. 10. Hyponatremia. 11. H/O Ureteral stone status post ureteral stent repeat CT shows no residual ureteral stone Patient was not seen in outpatient urology clinic due to not being in network per discussion with advanced urology service Plan: Plan of Care Cont zosyn/micafungin/daptomycin F/U Intraop cults Continue local wound care. Follow up labs Continue supportive care. Offload Discussed with wound team Patient did not have urology follow-up as outpatient after last discharge from [facility] for left ureteral stent management due to being out of network per discussion with urology at [facility] Upon discharge patient will need follow-up with urology who is in patient's network for further ureteral stent management Discussed with WILI HALE MD Jun 26, 2020 11:07
[2020-06-26] MEDS: FUROSEMIDE 40 MG TABLET. PO SCH (11:08)
[2020-06-26 11:37] VITALS: BP 137/76
--- NOTE | 2020-06-26 12:14 | PDOC ---
SURGICAL PROGRESS NOTE DATE: 06/26/20 TIME: 12:11 Subjective doing ok just had a shave Vital Signs Vital Signs Date Time Temp Pulse Resp B/P (MAP) Pulse Ox O2 Delivery O2 Flow Rate FiO2 06/26/20 11:37 97.4 94 20 137/76 (96) 95 Room Air 97.4 06/25/20 17:01 2.0 I&O Intake and Output 06/26/20 07:00 Intake Total 600 ml Output Total 3750 ml Balance -3150 ml Intake Oral 500 ml IV Total 100 ml Output Urine Total 3750 ml General: Alert, Cooperative Skin: Other (vac now in place) Labs Laboratory Tests Test 06/24/20 14:45 06/24/20 16:10 06/24/20 19:06 06/25/20 03:35 Glucose (Fingerstick) 123 mg/dL (70-99) 142 mg/dL (70-99) 258 mg/dL (70-99) White Blood Count 4.8 x10^3/uL (4.0-11.0) Red Blood Count 3.64 x10^6/uL (4.30-5.70) Hemoglobin 10.5 g/dL (13.0-17.5) Hematocrit 31.7 % (39.0-53.0) Mean Corpuscular Volume 87 fL (79-100) Mean Corpuscular Hemoglobin 29 pg (25-35) Mean Corpuscular Hemoglobin Concent 33 g/dL (31-37) Red Cell Distribution Width 17.0 % (11.5-14.5) Platelet Count 278 x10^3/uL (140-400) Neutrophils (%) (Auto) 64 % (31-73) Lymphocytes (%) (Auto) 30 % (24-48) Monocytes (%) (Auto) 7 % (0-9) Eosinophils (%) (Auto) 0 % (0-3) Basophils (%) (Auto) 0 % (0-3) Neutrophils # (Auto) 3.1 x10^3/uL (1.8-7.7) Lymphocytes # (Auto) 1.4 x10^3/uL (1.0-4.8) Monocytes # (Auto) 0.3 x10^3/uL (0.0-1.1) Eosinophils # (Auto) 0.0 x10^3/uL (0.0-0.7) Basophils # (Auto) 0.0 x10^3/uL (0.0-0.2) Erythrocyte Sedimentation Rate 127 (0-15) Sodium Level 136 mmol/L (136-145) Potassium Level 4.5 mmol/L (3.5-5.1) Chloride Level 102 mmol/L (98-107) Carbon Dioxide Level 27 mmol/L (21-32) Anion Gap 7 (6-14) Blood Urea Nitrogen 11 mg/dL (8-26) Creatinine 0.6 mg/dL (0.7-1.3) Estimated GFR (Cockcroft-Gault) 137.9 BUN/Creatinine Ratio 18 (6-20) Glucose Level 232 mg/dL (70-99) Calcium Level 8.6 mg/dL (8.5-10.1) Total Bilirubin 0.4 mg/dL (0.2-1.0) Aspartate Amino Transf (AST/SGOT) 27 U/L (15-37) Alanine Aminotransferase (ALT/SGPT) 25 U/L (16-63) Alkaline Phosphatase 200 U/L (46-116) C-Reactive Protein, Quantitative 120.9 mg/L (0-3.3) Total Protein 7.2 g/dL (6.4-8.2) Albumin 1.6 g/dL (3.4-5.0) Albumin/Globulin Ratio 0.3 (1.0-1.7) Test 06/25/20 07:11 06/25/20 11:35 06/25/20 16:39 06/25/20 20:11 Glucose (Fingerstick) 221 mg/dL (70-99) 224 mg/dL (70-99) 177 mg/dL (70-99) 182 mg/dL (70-99) Test 06/26/20 07:07 06/26/20 11:42 Glucose (Fingerstick) 124 mg/dL (70-99) 183 mg/dL (70-99) Laboratory Tests Test 06/25/20 16:39 06/25/20 20:11 06/26/20 07:07 06/26/20 11:42 Glucose (Fingerstick) 177 mg/dL (70-99) 182 mg/dL (70-99) 124 mg/dL (70-99) 183 mg/dL (70-99) Problem List Problems Medical Problems: (1) Decubitus ulcer Status: Acute (2) Hypoxia Status: Acute (3) Pneumonia Status: Acute (4) Sepsis Status: Acute Assessment/Plan wound care vac now stable surgically Justicifation of Admission Dx: Justifications for Admission: Justification of Admission Dx: N/A WHITLEY BRIONES APRN Jun 26, 2020 12:14
--- NOTE | 2020-06-26 12:59 | NUR ---
SW following. Discussed with RN. 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 CINTIA faxed updates to [facility]. Pt added to weekend discharge list in case of discharge. CINTIA will continue to follow.
[2020-06-26] MEDS: DAPTOmycin (GENERIC) IVPB 640 MG in IV NORMAL SALINE 50ML 50 ML IV SCH (14:19)
[2020-06-26 15:11] VITALS: BP 137/76
--- NOTE | 2020-06-26 15:29 | NUR ---
Wound Care Vac dressing repaired after BM. will return Monday for next dressing change. Saline and canister replaced Addendum: 06/26/20 at 1532 by CHELA JOY RN WC cushion ordered Addendum: 06/26/20 at 1536 by CHELA JOY RN Vac settings changed to 26ml NS for 3 min soak every 3 hours
--- NOTE | 2020-06-26 18:06 | PATHOLOGY ---
[facility] Accession Number: [id number] . 01 Material submitted: . sacrum - SACRAL ULCER . 01 Clinical history: . DEBRIDEMENT AND DRAINAGE OF SACRAL ULCER SEPSIS PNEUMONIA . 02 Diagnosis: Segment of skin and subcutaneous tissue, sacral ulcer debridement: - Ulceration of skin with necrosis and acute inflammation of skin and subcutaneous tissue, consistent with decubitus ulcer. (JPM:pit 06/26/2020) QTP 06/26/2020 1708 Local . 02 Comment: There is no evidence of malignancy. . 02 Electronically signed: . Michael Hutchins MD, Pathologist NPI- [id number] . 01 Gross description: . The specimen is received in formalin, labeled "Helliker, Lee, sacral ulcer" and consist of a 5 x 2.5 x 1.5 cm portion of dorsey-garcia focally necrotic skin and subcutis. Bone is not identified. Sports Director sections A1.([facility]; 06/25/2020) YAJAIRA/YAJAIRA 06/25/2020 2115 Local . 02 Pathologist provided ICD-10: L98.499, I96, L98.9 . 02 CPT . 265047 Specimen Comment: A courtesy copy of this report has been sent to [phone] Specimen Comment: [id number] Specimen Comment: Report sent to / DR FRIAS Performed at: 01 [facility] [address], [place] [id number] MD Iván Martinez MD Phone: [phone] Performed at: 02 [facility] [address] [place], [place] [id number] MD Michael Hutchins MD Phone: [phone]
[2020-06-26 19:00] VITALS: BP 139/74
[2020-06-26] MEDS: INSULIN GLARGINE SYRINGE. SQ SCH (21:04)
[2020-06-26 23:00] VITALS: BP 142/56
[2020-06-27] MEDS: PIPERACILLIN/TAZOBACTAM 3.375 GM in IV NORMAL SALINE 50ML 50 ML IV SCH ×4 (00:56→17:51)
[2020-06-27] MEDS: MORPHINE SULFATE 4 MG/ML VIAL. IV PRN ×5 (00:58→20:31)
[2020-06-27 03:00] VITALS: BP 118/54
[2020-06-27] MEDS: oxyCODONE/APAP 5/325 1 TAB TABLET PO PRN ×5 (03:51→22:05)
[2020-06-27 07:00] VITALS: BP 135/78
[2020-06-27] MEDS: DOCUSATE SODIUM 100 MG CAPSULE. PO SCH ×2 (08:42→20:31)
[2020-06-27] MEDS: POTASSIUM CHLORIDE 20 MEQ TABLET.ER. PO SCH ×2 (08:42→17:50)
[2020-06-27] MEDS: FUROSEMIDE 40 MG TABLET. PO SCH (08:42)
[2020-06-27] MEDS: MULTIVITAMIN with MINERAL TABLET. PO SCH (08:42)
[2020-06-27] MEDS: LACTOBACILLUS RHAMNOSUS GG 1 CAPSULE. PO SCH ×2 (08:42→20:31)
[2020-06-27] MEDS: PANTOPRAZOLE 40 MG TABLET.DR. PO SCH (08:42)
[2020-06-27] MEDS: INSULIN LISPRO 300 UNITS/3 ML VIAL. SQ SCH ×3 (08:52→17:56)
[2020-06-27] MEDS: MICAFUNGIN 100 MG in IV DEXTROSE 5% 100ML 100 ML IV SCH (08:55)
[2020-06-27] MEDS: VITS A & D/LANOLIN TOPICAL OINTMENT 42GM TUBE. TP SCH ×2 (09:00→21:00)
[2020-06-27] MEDS: POLYETHYLENE GLYCOL 3350 17 GM PACKET. PO SCH (09:00)
[2020-06-27] MEDS: MUPIROCIN 2 % TOPICAL CREAM 30GM TUBE. TP SCH ×2 (09:00→21:00)
[2020-06-27 11:00] VITALS: BP 144/71
--- NOTE | 2020-06-27 14:18 | PDOC ---
Infectious Disease Note Subjective Subjective + BM yesterday, still feeling constipated. Passing gas. Appetite is ok. Ate some chili for lunch. Denies cramps/N/V/F/C/SOA/rash ROS ROS as mentioned above Vital Sign Vital Signs Vital Signs Date Time Temp Pulse Resp B/P (MAP) Pulse Ox O2 Delivery O2 Flow Rate FiO2 06/27/20 11:00 97.8 91 18 144/71 (95) 94 Room Air 97.8 Physical Exam PHYSICAL EXAM GENERAL: Propped up in bed, alert, watching TV HEENT: Anicteric. Oral cavity clear NECK: Supple, no JVD. LUNGS: Clear bilaterally. No wheezing. HEART: S1, S2. No gallops or murmurs. ABDOMEN: Soft, obese. Bowel sounds present, nontender, nondistended. GENITOURINARY: Duggan in place. EXTREMITIES: 1+ edema, no cyanosis, no clubbing. DERMATOLOGIC: Warm, dry. No generalized rash. Sacral wound vac in place. PIV looks okay. Labs Lab Laboratory Tests Test 06/26/20 16:40 06/26/20 21:01 06/27/20 07:42 06/27/20 11:31 Glucose (Fingerstick) 141 mg/dL (70-99) 128 mg/dL (70-99) 104 mg/dL (70-99) 138 mg/dL (70-99) Micro Microbiology 06/24/20 Gram Stain - Final, Resulted 06/24/20 Aerobic and Anaerobic Culture - Preliminary, Resulted 06/24/20 Antimicrobic Susceptibility - Preliminary, Resulted 06/18/20 Blood Culture - Final, Complete NO GROWTH AFTER 5 DAYS Objective Assessment Sepsis from gram-negative bacteremia. E. coli bacteremia POA. Constipation Acute hypoxic respiratory failure, COVID-19 and influenza screen negative. Diabetes. Decubitus ulcers with necrotic eschar..CT reviewed June 24 2020 - s/p excisional debridement of skin and subcutaneous tissue overlying sacrum cults E. coli and staph epidermidis Generalized debility. History of recent E. coli recurrent urosepsis. Protein-calorie malnutrition. Hyponatremia. H/O Ureteral stone status post ureteral stent repeat CT shows no residual ureteral stone Patient was not seen in outpatient urology clinic due to not being in network per discussion with advanced urology service Plan Plan of Care Cont zosyn/micafungin/daptomycin F/U Intraop cults Continue local wound care. Monitor labs. ESR 127. Ck 11 Offload Patient did not have urology follow-up as outpatient after last discharge from [facility] for left ureteral stent management due to being out of network per discussion with urology at [facility] Upon discharge patient will need follow-up with urology who is in patient's network for further ureteral stent management Feeling some better and doing extra rehab in his bed. Clinically looks well D/w nursing Attending Co-Sign Attending Co-Sign The patient was seen and interviewed as well as examined at the bedside. The chart was reviewed. The case was discussed. Agree with the plan of care. LONNIE LOPEZ APRN Jun 27, 2020 14:18 NICK ARROYO MD Jun 27, 2020 15:25
[2020-06-27 15:00] VITALS: BP 125/74
[2020-06-27] MEDS: DAPTOmycin (GENERIC) IVPB 640 MG in IV NORMAL SALINE 50ML 50 ML IV SCH (15:22)
--- NOTE | 2020-06-27 17:01 | PDOC ---
SURGICAL PROGRESS NOTE DATE: 06/27/20 TIME: 17:01 Subjective Pt with c/o soreness, but notes his urine is clearer Vital Signs Vital Signs Date Time Temp Pulse Resp B/P (MAP) Pulse Ox O2 Delivery O2 Flow Rate FiO2 06/27/20 15:25 18 Room Air 06/27/20 11:00 97.8 91 144/71 (95) 94 97.8 I&O Intake and Output 06/27/20 07:00 Intake Total 1180 ml Output Total 4050 ml Balance -2870 ml Intake Oral 1080 ml IV Total 100 ml Output Urine Total 4050 ml General: Alert, Oriented X3, Cooperative, No acute distress Abdomen: Soft Labs Laboratory Tests Test 06/25/20 20:11 06/26/20 07:07 06/26/20 11:42 06/26/20 12:00 Glucose (Fingerstick) 182 mg/dL (70-99) 124 mg/dL (70-99) 183 mg/dL (70-99) Creatine Kinase 11 U/L (39-308) Test 06/26/20 16:40 06/26/20 21:01 06/27/20 07:42 06/27/20 11:31 Glucose (Fingerstick) 141 mg/dL (70-99) 128 mg/dL (70-99) 104 mg/dL (70-99) 138 mg/dL (70-99) Test 06/27/20 16:27 Glucose (Fingerstick) 124 mg/dL (70-99) Laboratory Tests Test 06/26/20 21:01 06/27/20 07:42 06/27/20 11:31 06/27/20 16:27 Glucose (Fingerstick) 128 mg/dL (70-99) 104 mg/dL (70-99) 138 mg/dL (70-99) 124 mg/dL (70-99) Problem List Problems Medical Problems: (1) Decubitus ulcer Status: Acute (2) Hypoxia Status: Acute (3) Pneumonia Status: Acute (4) Sepsis Status: Acute Assessment/Plan s/p debridement cont wound vac Justicifation of Admission Dx: Justifications for Admission: Justification of Admission Dx: N/A KATE PUENTE MD Jun 27, 2020 17:01
[2020-06-27 19:00] VITALS: BP 142/82
[2020-06-27] MEDS: INSULIN GLARGINE SYRINGE. SQ SCH (20:41)
[2020-06-27 23:00] VITALS: BP 127/78
--- NOTE | 2020-06-27 23:53 | PN ---
DATE: 06/27/2020 DAILY PROGRESS NOTE LOCATION: He is in room 671. SUBJECTIVE: This 60-year-old white male remains hospitalized for E. coli bacteremia and sepsis. Initial hypoxia on admission is resolved. He continues to have back pain, but it seems better. He is status post debridement of his decubitus ulcers with final culture showing E. coli, pansensitive, which is consistent with his blood cultures. OBJECTIVE: VITAL SIGNS: Stable. He is afebrile. CHEST: Clear. HEART: Regular. EXTREMITIES: Benign. LABORATORY DATA: Sugars are better. I had a long discussion with him regarding future. He is quite motivated to get back up going back home at some point and I believe this is possible as the patient was living independently prior to his initial sepsis a couple of months ago. He is also only 60 years old. IMPRESSION: 1. Sepsis from Escherichia coli bacteremia, probably skin source at this point. 2. Acute hypoxic respiratory failure, resolved. 3. Diabetes. 4. Decubitus ulcer debrided. 5. Severe protein-calorie malnutrition. 6. Generalized weakness. PLAN: Continue present antibiotics per ID. Wound care is ongoing. It is time to start mobilizing and again my discharge strategy would not be back to a shelter, but to some sort of intensive rehabilitation and the patient is motivated to do the same. JONAS DR: Kobi TID: [id number]
[2020-06-28] VITALS (7 sets, daily range): BP systolic 109–180; BP diastolic 69–91
[2020-06-28] MEDS: PIPERACILLIN/TAZOBACTAM 3.375 GM in IV NORMAL SALINE 50ML 50 ML IV SCH ×4 (00:39→17:52)
[2020-06-28] MEDS: MORPHINE SULFATE 4 MG/ML VIAL. IV PRN ×5 (00:39→21:36)
[2020-06-28] MEDS: oxyCODONE/APAP 5/325 1 TAB TABLET PO PRN ×5 (04:20→22:45)
[2020-06-28] MEDS: FUROSEMIDE 40 MG TABLET. PO SCH (09:48)
[2020-06-28] MEDS: POLYETHYLENE GLYCOL 3350 17 GM PACKET. PO SCH (09:48)
[2020-06-28] MEDS: POTASSIUM CHLORIDE 20 MEQ TABLET.ER. PO SCH ×2 (09:49→17:12)
[2020-06-28] MEDS: DOCUSATE SODIUM 100 MG CAPSULE. PO SCH ×2 (09:49→20:32)
[2020-06-28] MEDS: LACTOBACILLUS RHAMNOSUS GG 1 CAPSULE. PO SCH ×2 (09:49→20:32)
[2020-06-28] MEDS: MULTIVITAMIN with MINERAL TABLET. PO SCH (09:49)
[2020-06-28] MEDS: PANTOPRAZOLE 40 MG TABLET.DR. PO SCH (09:50)
[2020-06-28] MEDS: MUPIROCIN 2 % TOPICAL CREAM 30GM TUBE. TP SCH ×2 (09:55→21:38)
[2020-06-28] MEDS: VITS A & D/LANOLIN TOPICAL OINTMENT 42GM TUBE. TP SCH ×2 (09:56→21:39)
[2020-06-28] MEDS: INSULIN LISPRO 300 UNITS/3 ML VIAL. SQ SCH ×3 (10:02→17:20)
[2020-06-28] MEDS: DAPTOmycin (GENERIC) IVPB 640 MG in IV NORMAL SALINE 50ML 50 ML IV SCH (12:53)
[2020-06-28] MEDS: MICAFUNGIN 100 MG in IV DEXTROSE 5% 100ML 100 ML IV SCH (12:59)
--- NOTE | 2020-06-28 14:10 | PN ---
DATE: 06/28/2020 DAILY PROGRESS NOTE LOCATION: He is in room 671. SUBJECTIVE: This 60-year-old white male remains hospitalized for Escherichia coli bacteremia and sepsis. Initial hypoxia on admission is resolved. He continues to have back pain, but it is somewhat better. He is status post debridement of decubitus ulcers with final cultures showing Escherichia coli, pansensitive, which is consistent with his blood cultures. OBJECTIVE: VITAL SIGNS: Stable. He is afebrile. CHEST: Clear. HEART: Regular. ABDOMEN: Benign. LABORATORY DATA: Sugars are acceptable. He is very motivated at this point in time to get back up, get going, get home. This is first time in 2+ months that he has not been intermittently bacteremic and septic and I believe that that is probably possible. IMPRESSION: 1. Sepsis from Escherichia coli bacteremia, probably skin source at this point. 2. Acute hypoxic respiratory failure, resolved. 3. Diabetes mellitus. 4. Decubitus ulcer debrided. 5. Severe protein calorie malnutrition. 6. Generalized weakness. PLAN: Continue present antibiotics per ID. Wound care is ongoing with a wound VAC. I am going to push for some sort of inpatient intensive rehabilitation at discharge. ARIADNA DR: Kobi TID: [id number]
--- NOTE | 2020-06-28 15:15 | NUR ---
Pt transferred to room 404 per bed. Report was given to Hieu WESTON.
[2020-06-28] MEDS: INSULIN GLARGINE SYRINGE. SQ SCH (20:38)
[2020-06-29] MEDS: PIPERACILLIN/TAZOBACTAM 3.375 GM in IV NORMAL SALINE 50ML 50 ML IV SCH ×4 (00:04→17:44)
[2020-06-29] MEDS: MORPHINE SULFATE 4 MG/ML VIAL. IV PRN ×5 (01:52→19:55)
[2020-06-29 02:59] VITALS: BP 155/94
[2020-06-29] MEDS: PANTOPRAZOLE 40 MG TABLET.DR. PO SCH (05:03)
[2020-06-29] MEDS: oxyCODONE/APAP 5/325 1 TAB TABLET PO PRN ×5 (05:03→22:02)
[2020-06-29 06:12] LABS: BASO % 0 % (0-3); EOS # 0.1 x10^3/uL (0.0-0.7); EOS % 2 % (0-3); HEMATOCRIT 30.3 % (39.0-53.0); HEMOGLOBIN 10.2 g/dL (13.0-17.5); LYMPH # 3.1 x10^3/uL (1.0-4.8); LYMPH % 40 % (24-48); MEAN CORPUSCULAR HEMOGLOBIN 29 pg (25-35); MEAN CORPUSCULAR HGB CONC 34 g/dL (31-37); MEAN CORPUSCULAR VOLUME 87 fL (79-100); MONO # 0.9 x10^3/uL (0.0-1.1); MONO % 11 % (0-9); NEUT # 3.6 x10^3/uL (1.8-7.7); NEUT % 47 % (31-73); PLATELET COUNT 322 x10^3/uL (140-400); RED BLOOD COUNT 3.48 x10^6/uL (4.30-5.70); RED CELL DISTRIBUTION WIDTH 17.2 % (11.5-14.5); WHITE BLOOD COUNT 7.7 x10^3/uL (4.0-11.0)
[2020-06-29 06:19] LABS: CALCIUM 8.5 mg/dL (8.5-10.1); CREATININE 0.5 mg/dL (0.7-1.3); GFR 170.2; POTASSIUM 3.8 mmol/L (3.5-5.1)
[2020-06-29 07:00] VITALS: BP 131/73
[2020-06-29] MEDS: INSULIN LISPRO 300 UNITS/3 ML VIAL. SQ SCH ×3 (08:44→17:49)
[2020-06-29] MEDS: MUPIROCIN 2 % TOPICAL CREAM 30GM TUBE. TP SCH ×2 (09:00→21:00)
[2020-06-29] MEDS: VITS A & D/LANOLIN TOPICAL OINTMENT 42GM TUBE. TP SCH ×2 (09:00→21:00)
[2020-06-29] MEDS: POLYETHYLENE GLYCOL 3350 17 GM PACKET. PO SCH (09:00)
--- NOTE | 2020-06-29 09:00 | PDOC ---
SURGICAL PROGRESS NOTE DATE: 06/29/20 TIME: 08:59 Subjective doing ok sore from laying on side Vital Signs Vital Signs Date Time Temp Pulse Resp B/P (MAP) Pulse Ox O2 Delivery O2 Flow Rate FiO2 06/29/20 07:00 97.4 86 16 131/73 (92) 94 Room Air 97.4 06/28/20 22:45 2.0 I&O Intake and Output 06/29/20 06:59 Intake Total 360 ml Output Total 2250 ml Balance -1890 ml Intake Oral 360 ml Output Urine Total 2250 ml # Bowel Movements 1 General: Alert, Oriented X3, Cooperative Skin: Other (vac in place) Labs Laboratory Tests Test 06/27/20 11:31 06/27/20 16:27 06/27/20 19:40 06/28/20 07:13 Glucose (Fingerstick) 138 mg/dL (70-99) 124 mg/dL (70-99) 143 mg/dL (70-99) 145 mg/dL (70-99) Test 06/28/20 10:25 06/28/20 16:05 06/28/20 20:36 06/29/20 05:35 Glucose (Fingerstick) 195 mg/dL (70-99) 135 mg/dL (70-99) 161 mg/dL (70-99) White Blood Count 7.7 x10^3/uL (4.0-11.0) Red Blood Count 3.48 x10^6/uL (4.30-5.70) Hemoglobin 10.2 g/dL (13.0-17.5) Hematocrit 30.3 % (39.0-53.0) Mean Corpuscular Volume 87 fL (79-100) Mean Corpuscular Hemoglobin 29 pg (25-35) Mean Corpuscular Hemoglobin Concent 34 g/dL (31-37) Red Cell Distribution Width 17.2 % (11.5-14.5) Platelet Count 322 x10^3/uL (140-400) Neutrophils (%) (Auto) 47 % (31-73) Lymphocytes (%) (Auto) 40 % (24-48) Monocytes (%) (Auto) 11 % (0-9) Eosinophils (%) (Auto) 2 % (0-3) Basophils (%) (Auto) 0 % (0-3) Neutrophils # (Auto) 3.6 x10^3/uL (1.8-7.7) Lymphocytes # (Auto) 3.1 x10^3/uL (1.0-4.8) Monocytes # (Auto) 0.9 x10^3/uL (0.0-1.1) Eosinophils # (Auto) 0.1 x10^3/uL (0.0-0.7) Basophils # (Auto) 0.0 x10^3/uL (0.0-0.2) Sodium Level 136 mmol/L (136-145) Potassium Level 3.8 mmol/L (3.5-5.1) Chloride Level 102 mmol/L (98-107) Carbon Dioxide Level 29 mmol/L (21-32) Anion Gap 5 (6-14) Blood Urea Nitrogen 10 mg/dL (8-26) Creatinine 0.5 mg/dL (0.7-1.3) Estimated GFR (Cockcroft-Gault) 170.2 Glucose Level 114 mg/dL (70-99) Calcium Level 8.5 mg/dL (8.5-10.1) Test 06/29/20 07:34 Glucose (Fingerstick) 93 mg/dL (70-99) Laboratory Tests Test 06/28/20 10:25 06/28/20 16:05 06/28/20 20:36 06/29/20 05:35 Glucose (Fingerstick) 195 mg/dL (70-99) 135 mg/dL (70-99) 161 mg/dL (70-99) White Blood Count 7.7 x10^3/uL (4.0-11.0) Red Blood Count 3.48 x10^6/uL (4.30-5.70) Hemoglobin 10.2 g/dL (13.0-17.5) Hematocrit 30.3 % (39.0-53.0) Mean Corpuscular Volume 87 fL (79-100) Mean Corpuscular Hemoglobin 29 pg (25-35) Mean Corpuscular Hemoglobin Concent 34 g/dL (31-37) Red Cell Distribution Width 17.2 % (11.5-14.5) Platelet Count 322 x10^3/uL (140-400) Neutrophils (%) (Auto) 47 % (31-73) Lymphocytes (%) (Auto) 40 % (24-48) Monocytes (%) (Auto) 11 % (0-9) Eosinophils (%) (Auto) 2 % (0-3) Basophils (%) (Auto) 0 % (0-3) Neutrophils # (Auto) 3.6 x10^3/uL (1.8-7.7) Lymphocytes # (Auto) 3.1 x10^3/uL (1.0-4.8) Monocytes # (Auto) 0.9 x10^3/uL (0.0-1.1) Eosinophils # (Auto) 0.1 x10^3/uL (0.0-0.7) Basophils # (Auto) 0.0 x10^3/uL (0.0-0.2) Sodium Level 136 mmol/L (136-145) Potassium Level 3.8 mmol/L (3.5-5.1) Chloride Level 102 mmol/L (98-107) Carbon Dioxide Level 29 mmol/L (21-32) Anion Gap 5 (6-14) Blood Urea Nitrogen 10 mg/dL (8-26) Creatinine 0.5 mg/dL (0.7-1.3) Estimated GFR (Cockcroft-Gault) 170.2 Glucose Level 114 mg/dL (70-99) Calcium Level 8.5 mg/dL (8.5-10.1) Test 06/29/20 07:34 Glucose (Fingerstick) 93 mg/dL (70-99) Problem List Problems Medical Problems: (1) Decubitus ulcer Status: Acute (2) Hypoxia Status: Acute (3) Pneumonia Status: Acute (4) Sepsis Status: Acute Assessment/Plan wound care, will FU on wound eval today Justicifation of Admission Dx: Justifications for Admission: Justification of Admission Dx: N/A WHITLEY BRIONES [employer] Jun 29, 2020 09:00
[2020-06-29] MEDS: DOCUSATE SODIUM 100 MG CAPSULE. PO SCH ×2 (09:22→22:02)
[2020-06-29] MEDS: FUROSEMIDE 40 MG TABLET. PO SCH (09:23)
[2020-06-29] MEDS: LACTOBACILLUS RHAMNOSUS GG 1 CAPSULE. PO SCH ×2 (09:23→22:02)
[2020-06-29] MEDS: MULTIVITAMIN with MINERAL TABLET. PO SCH (09:23)
[2020-06-29] MEDS: POTASSIUM CHLORIDE 10 MEQ TABLET.ER. PO SCH ×2 (09:23→17:20)
--- NOTE | 2020-06-29 09:41 | PN ---
DATE: 06/29/2020 DAILY PROGRESS NOTE LOCATION: He is in room 404. SUBJECTIVE: This 60-year-old white male remains hospitalized for E. coli bacteremia and sepsis. Initial hypoxia on admission has resolved. He continues to have back pain, although it does seem to be somewhat better. He is status post debridement of decubitus ulcers with final culture showing E. coli, pansensitive, which is consistent with his blood cultures. OBJECTIVE: VITAL SIGNS: Stable. He is afebrile. CHEST: Clear. HEART: Regular. ABDOMEN: Benign. He remains on an air flotation bed. LABORATORY DATA: Sugars are acceptable. He remains extremely motivated to get back to his prior level of function, which was independent. BMP this morning is essentially unremarkable as is his CBC. IMPRESSION: 1. Sepsis from Escherichia coli bacteremia, probably skin source. 2. Acute hypoxic respiratory failure, resolved. 3. Diabetes. 4. Decubitus ulcer debrided with ongoing wound care and wound VAC. 5. Severe protein calorie malnutrition. 6. Generalized weakness. PLAN: Continue present antibiotics per ID. Wound care is ongoing. I am going to have him evaluated for inpatient rehab, which he seems very motivated at this point in time and I think he would progress there better than any other type setting. THEO/ROZINA DR: Kobi TID: [id number]
--- NOTE | 2020-06-29 10:10 | PDOC ---
Infectious Disease Note Subjective: Subjective Patient complains of bloating, has a lot of gas No BM today Postoperative pain is under control Denies cramps/N/V/F/C/SOA/rash Vital Signs: Vital Signs Vital Signs Date Time Temp Pulse Resp B/P (MAP) Pulse Ox O2 Delivery O2 Flow Rate FiO2 06/29/20 09:23 Room Air 06/29/20 07:00 97.4 86 16 131/73 (92) 94 97.4 06/28/20 22:45 2.0 Physical Exam: PHYSICAL EXAM GENERAL: Propped up in bed, alert, watching TV HEENT: Anicteric. Oral cavity clear NECK: Supple, no JVD. LUNGS: Clear bilaterally. No wheezing. HEART: S1, S2. No gallops or murmurs. ABDOMEN: Soft, obese. Bowel sounds present, nontender, nondistended. GENITOURINARY: Duggan in place. EXTREMITIES: 1+ edema, no cyanosis, no clubbing. DERMATOLOGIC: Warm, dry. No generalized rash. Sacral wound vac in place. PIV looks okay. Medications: Inpatient Meds: Medications reviewed. Labs: Lab Laboratory Tests Test 06/28/20 10:25 06/28/20 16:05 06/28/20 20:36 06/29/20 05:35 Glucose (Fingerstick) 195 mg/dL (70-99) 135 mg/dL (70-99) 161 mg/dL (70-99) White Blood Count 7.7 x10^3/uL (4.0-11.0) Red Blood Count 3.48 x10^6/uL (4.30-5.70) Hemoglobin 10.2 g/dL (13.0-17.5) Hematocrit 30.3 % (39.0-53.0) Mean Corpuscular Volume 87 fL (79-100) Mean Corpuscular Hemoglobin 29 pg (25-35) Mean Corpuscular Hemoglobin Concent 34 g/dL (31-37) Red Cell Distribution Width 17.2 % (11.5-14.5) Platelet Count 322 x10^3/uL (140-400) Neutrophils (%) (Auto) 47 % (31-73) Lymphocytes (%) (Auto) 40 % (24-48) Monocytes (%) (Auto) 11 % (0-9) Eosinophils (%) (Auto) 2 % (0-3) Basophils (%) (Auto) 0 % (0-3) Neutrophils # (Auto) 3.6 x10^3/uL (1.8-7.7) Lymphocytes # (Auto) 3.1 x10^3/uL (1.0-4.8) Monocytes # (Auto) 0.9 x10^3/uL (0.0-1.1) Eosinophils # (Auto) 0.1 x10^3/uL (0.0-0.7) Basophils # (Auto) 0.0 x10^3/uL (0.0-0.2) Sodium Level 136 mmol/L (136-145) Potassium Level 3.8 mmol/L (3.5-5.1) Chloride Level 102 mmol/L (98-107) Carbon Dioxide Level 29 mmol/L (21-32) Anion Gap 5 (6-14) Blood Urea Nitrogen 10 mg/dL (8-26) Creatinine 0.5 mg/dL (0.7-1.3) Estimated GFR (Cockcroft-Gault) 170.2 Glucose Level 114 mg/dL (70-99) Calcium Level 8.5 mg/dL (8.5-10.1) Test 06/29/20 07:34 Glucose (Fingerstick) 93 mg/dL (70-99) Micro RUN DATE: 06/22/20 [place] [facility] *LIVE* PAGE 1 RUN TIME: 0820 Specimen Inquiry PATIENT: LILI MONTEMAYOR ACCT: [id number] LOC: 2 [facility] U: [id number] AGE/SX: 60/M ROOM: 252 RE06/18/[address]: BUSTER LEMONS MD : 1960 BED: 1 DIS: STATUS: ADM IN TLOC: ------ ------ SPEC #: [id number] GABRIELE: 06/18/20 STATUS: COMP REQ #: [id number] RECD: 06/18/[address]: EVERARDO FRIAS MD SOURCE: BLOOD ENTR: 06/19/[address] [facility] DR: BUST[facility] LEMONS [facility] ORDERED: BLD CULT - LC Procedure Result BLOOD CULTURE LC Final Final GRAM NEGATIVE RODS FINAL ID= [ESCHERICHIA COLI] ESCHERICHIA COLI ANTIMICROBIAL SUSCEPTIBILITY Final Comment NEG RAD 56 ESCHERICHIA COLI ANTIBIOTIC RESULT INTERPRETATION AMPICILLIN/SULBACTAM <=4/2 S AMIKACIN <=16 S AMPICILLIN <=8 S AMOXICILLIN/K CLAVULANATE <=8/4 S AZTREONAM <=4 S CEFTRIAXONE <=1 S CEFTAZIDIME <=1 S CEFOTAXIME <=2 S CEFOXITIN <=8 S CEFAZOLIN <=2 S CIPROFLOXACIN <=0.25 S CEFEPIME <=2 S CEFUROXIME <=4 S CEFTAZIDIME/AVIBACTAM <=4 S ERTAPENEM <=0.5 S GENTAMICIN <=2 S LEVOFLOXACIN <=0.5 S MEROPENEM <=1 S PIPERACILLIN/TAZOBACTAM <=8 S TRIMETHOPRIM/SULFAMETHOXAZOLE <=0.5/9.5 S TETRACYCLINE <=4 S TOBRAMYCIN <=2 S Unless otherwise specified, Testing Performed by: [address] [address] For Inquires, the Physician may contact the Microbiology department at [phone] CT abdomen and pelvis IMPRESSION: 1. Interval left nephroureteral stent placement. The recently demonstrated obstructing ureteral stone is no longer seen. There is gas within the bladder due to recent catheterization. 2. Punctate nonobstructing bilateral renal stones or vascular calcifications. 3. Open comminuted L1 compression fracture, stable compared to the prior study. There are additional more chronic appearing compression fractures throughout the thoracic and lumbar spine and there are sacral insufficiency fracture status post sacroplasty. 4. Small bilateral pleural effusions and partial left lower lobe consolidation superimposed on bilateral lower lobe atelectasis. 5. Suspected gallbladder sludge. 6. Gas within the buttock subcutaneous fat, possibly postprocedural or due to a medication injection sites. Correlate with exam findings to exclude an infectious etiology. There is also gas within the right ventral abdominal wall due to an injection site. Objective: Assessment: 1. Sepsis from gram-negative bacteremia. 2. E. coli bacteremia POA. 3. Constipation 4. Acute hypoxic respiratory failure, COVID-19 and influenza screen negative. 5. Diabetes. 6. Decubitus ulcers with necrotic eschcar..CT reviewed June 24 2020 S/P Excisional debridement of skin and subcutaneous tissue overlying sacrum cults E. coli and staph epidermidis 7. Generalized debility. 8. History of recent E. coli recurrent urosepsis. 9. Protein-calorie malnutrition. 10. Hyponatremia. 11. H/O Ureteral stone status post ureteral stent repeat CT shows no residual ureteral stone Patient was not seen in outpatient urology clinic due to not being in network per discussion with advanced urology service Plan: Plan of Care Cont zosyn/micafungin/daptomycin F/U Intraop cults Continue local wound care. Monitor labs. ESR 127. Ck 11 Offload Patient did not have urology follow-up as outpatient after last discharge from [facility] for left ureteral stent management due to being out of network per discussion with urology at [facility] Upon discharge patient will need follow-up with urology who is in patient's network for further ureteral stent management WILI POST MD Jun 29, 2020 10:10
[2020-06-29] MEDS: MICAFUNGIN 100 MG in IV DEXTROSE 5% 100ML 100 ML IV SCH (10:34)
[2020-06-29 11:05] VITALS: BP 137/82
--- NOTE | 2020-06-29 12:35 | NUR ---
Report called to ENRICO Bell at [facility]. Currently awaiting transport on patient. Will continue to monitor patient until transport personnel arrives. Addendum: 06/29/20 at 1243 by ESTELA WALL RN Documented on wrong patient.
[2020-06-29] MEDS: DAPTOmycin (GENERIC) IVPB 640 MG in IV NORMAL SALINE 50ML 50 ML IV SCH (12:49)
--- NOTE | 2020-06-29 12:51 | NUR ---
SW following. Discussed with RN, pt from [facility], but can return SNF. Pt requiring 3 IV abx, therapy and wound care. SW spoke with pt RE referral to LTAC, pt agreeable to referral being sent to [facility], but is not 100% agreeing to go at this time. Referral phoned and faxed to [facility], awaiting acceptance decision. RN will notify SW when pt is close to discharge. SW will continue to follow.
[2020-06-29 14:00] VITALS: BP 124/77
--- NOTE | 2020-06-29 17:15 | NUR ---
Wound/Ostomy Care Wound Type/Assessment: Wound care follow up for vac application on bilateral buttocks, s/p I&D 06/[address] Noel. Bilateral buttocks are necrotic with fat and muscle layer exposed and excoriated periwound. wounds and periwound are improved. Treatment Recommendations/Plan: Cleansed wound, applied collagen to open areas on periwound, covered periwound with 4" ostomy rings. and applied veraflo cleanse wound vac to all 6 open wounds. Vac setting 125 mmHg continuous with 26ml NS cleanse for 3 minutes every 3 hours, change 2-3 times weekly Education provided: PU prevention discussed with pt but he still refused to turn on a side to offload wounds. Offloading surface/device: TQ2H with purple wedge Recommended Referrals/Tests: na Discharge Recommendations for dressings: pt will need wound vac upon discharge.
[2020-06-29 19:00] VITALS: BP 134/88
[2020-06-29] MEDS: INSULIN GLARGINE SYRINGE. SQ SCH (22:01)
[2020-06-29 23:12] VITALS: BP 141/84
[2020-06-30] MEDS: PIPERACILLIN/TAZOBACTAM 3.375 GM in IV NORMAL SALINE 50ML 50 ML IV SCH ×4 (00:13→19:28)
[2020-06-30] MEDS: MORPHINE SULFATE 4 MG/ML VIAL. IV PRN ×6 (00:13→21:51)
[2020-06-30] MEDS: oxyCODONE/APAP 5/325 1 TAB TABLET PO PRN ×5 (02:03→19:29)
[2020-06-30 03:00] VITALS: BP 138/79
[2020-06-30] MEDS: PANTOPRAZOLE 40 MG TABLET.DR. PO SCH (06:09)
[2020-06-30] MEDS: POTASSIUM CHLORIDE 10 MEQ TABLET.ER. PO SCH ×2 (06:09→17:26)
[2020-06-30 07:00] VITALS: BP 102/78
[2020-06-30] MEDS: INSULIN LISPRO 300 UNITS/3 ML VIAL. SQ SCH ×3 (08:00→17:29)
[2020-06-30] MEDS: LACTOBACILLUS RHAMNOSUS GG 1 CAPSULE. PO SCH ×2 (08:15→21:50)
[2020-06-30] MEDS: FUROSEMIDE 40 MG TABLET. PO SCH (08:15)
[2020-06-30] MEDS: MULTIVITAMIN with MINERAL TABLET. PO SCH (08:15)
[2020-06-30] MEDS: DOCUSATE SODIUM 100 MG CAPSULE. PO SCH ×2 (08:15→21:50)
[2020-06-30] MEDS: POLYETHYLENE GLYCOL 3350 17 GM PACKET. PO SCH (08:16)
--- NOTE | 2020-06-30 08:51 | PN ---
DATE: 06/30/2020 SUBJECTIVE: This 60-year-old white male who remains hospitalized with E. coli bacteremia and sepsis on admission, likely at this point from his decubitus ulcers with a clear urine during this admission. He also had acute respiratory failure on admission, which is improved. He is feeling better daily and motivated to do therapy to get back up going and eventually get home. OBJECTIVE: VITAL SIGNS: Stable. He is afebrile. CHEST: Clear. HEART: Regular. ABDOMEN: Benign, remains on air flotation bed. Sugars are acceptable. IMPRESSION: 1. Sepsis from Escherichia coli bacteremia, probable skin source. 2. Acute hypoxic respiratory failure, resolved. 3. Diabetes. 4. Decubitus ulcer debrided with ongoing wound care and wound VAC. 5. Severe protein-calorie malnutrition. 6. Generalized weakness. PLAN: Continue antibiotics per ID. Wound care is ongoing, therapy to work with the patient on a daily basis and we are looking towards transfer to some sort of higher level rehabilitation if he can be accepted. DEYSI DR: Kobi TID: [id number]
--- NOTE | 2020-06-30 08:57 | PDOC ---
Infectious Disease Note Subjective: Subjective Patient feels better Had multiple bowel movements yesterday which made his back pain worse Gas pain has subsided Postoperative pain is under control Denies cramps/N/V/F/C/SOA/rash Vital Signs: Vital Signs Vital Signs Date Time Temp Pulse Resp B/P (MAP) Pulse Ox O2 Delivery O2 Flow Rate FiO2 06/30/20 08:16 Room Air 06/30/20 07:00 97.4 85 17 102/78 (86) 95 97.4 06/30/20 06:40 2.0 Physical Exam: PHYSICAL EXAM GENERAL: Propped up in bed, alert, watching TV HEENT: Anicteric. Oral cavity clear NECK: Supple, no JVD. LUNGS: Clear bilaterally. No wheezing. HEART: S1, S2. No gallops or murmurs. ABDOMEN: Soft, obese. Bowel sounds present, nontender, nondistended. GENITOURINARY: Duggan in place. EXTREMITIES: 1+ edema, no cyanosis, no clubbing. DERMATOLOGIC: Warm, dry. No generalized rash. Sacral wound vac in place. PIV looks okay. Medications: Inpatient Meds: Medications reviewed. Labs: Lab Laboratory Tests Test 06/29/20 10:28 06/29/20 17:22 06/29/20 21:53 06/30/20 07:07 Glucose (Fingerstick) 131 mg/dL (70-99) 137 mg/dL (70-99) 175 mg/dL (70-99) 100 mg/dL (70-99) Micro RUN DATE: 06/22/20 [facility] *LIVE* PAGE 1 RUN TIME: 819 Specimen Inquiry PATIENT: LILI MONTEMAYOR ACCT: [id number] LOC: 2 [facility] U: [id number] AGE/SX: 60/M ROOM: 252 RE06/18/[address]: BUSTER LEMONS MD : 1960 BED: 1 DIS: STATUS: ADM IN TLOC: SPEC #: [id number] GABRIELE: 06/18/20 STATUS: COMP REQ #: [id number] RECD: 06/18/20-[address]: EVERARDO FRIAS MD SOURCE: BLOOD ENTR: 06/19/[address] [facility] DR: BUSTER LEMONS MD [facility]: ORDERED: KANE VÁSQUEZ - LC - Procedure Result BLOOD CULTURE LC Final Final GRAM NEGATIVE RODS FINAL ID= [ESCHERICHIA COLI] ESCHERICHIA COLI ANTIMICROBIAL SUSCEPTIBILITY Final Comment NEG RAD 56 ESCHERICHIA COLI ANTIBIOTIC RESULT INTERPRETATION AMPICILLIN/SULBACTAM <=4/2 S AMIKACIN <=16 S AMPICILLIN <=8 S AMOXICILLIN/K CLAVULANATE <=8/4 S AZTREONAM <=4 S CEFTRIAXONE <=1 S CEFTAZIDIME <=1 S CEFOTAXIME <=2 S CEFOXITIN <=8 S CEFAZOLIN <=2 S CIPROFLOXACIN <=0.25 S CEFEPIME <=2 S CEFUROXIME <=4 S CEFTAZIDIME/AVIBACTAM <=4 S ERTAPENEM <=0.5 S GENTAMICIN <=2 S LEVOFLOXACIN <=0.5 S MEROPENEM <=1 S PIPERACILLIN/TAZOBACTAM <=8 S TRIMETHOPRIM/SULFAMETHOXAZOLE <=0.5/9.5 S TETRACYCLINE <=4 S TOBRAMYCIN <=2 S Unless otherwise specified, Testing Performed by: [address] [address] For Inquires, the Physician may contact the Microbiology department at [phone] CT abdomen and pelvis IMPRESSION: 1. Interval left nephroureteral stent placement. The recently demonstrated obstructing ureteral stone is no longer seen. There is gas within the bladder due to recent catheterization. 2. Punctate nonobstructing bilateral renal stones or vascular calcifications. 3. Open comminuted L1 compression fracture, stable compared to the prior study. There are additional more chronic appearing compression fractures throughout the thoracic and lumbar spine and there are sacral insufficiency fracture status post sacroplasty. 4. Small bilateral pleural effusions and partial left lower lobe consolidation superimposed on bilateral lower lobe atelectasis. 5. Suspected gallbladder sludge. 6. Gas within the buttock subcutaneous fat, possibly postprocedural or due to a medication injection sites. Correlate with exam findings to exclude an infectious etiology. There is also gas within the right ventral abdominal wall due to an injection site. Objective: Assessment: 1. Sepsis from gram-negative bacteremia. 2. E. coli bacteremia POA. 3. Constipation 4. Acute hypoxic respiratory failure, COVID-19 and influenza screen negative. 5. Diabetes. 6. Decubitus ulcers with necrotic eschcar..CT reviewed June 24 2020 S/P Excisional debridement of skin and subcutaneous tissue overlying sacrum cults E. coli and staph epidermidis 7. Generalized debility. 8. History of recent E. coli recurrent urosepsis. 9. Protein-calorie malnutrition. 10. Hyponatremia. 11. H/O Ureteral stone status post ureteral stent repeat CT shows no residual ureteral stone Patient was not seen in outpatient urology clinic due to not being in network per discussion with advanced urology service Plan: Plan of Care Cont zosyn/micafungin/daptomycin F/U Intraop cults Continue local wound care. Monitor labs. ESR 127. Ck 11 Offload Patient did not have urology follow-up as outpatient after last discharge from [facility] for left ureteral stent management due to being out of network per discussion with urology at [facility] Upon discharge patient will need follow-up with urology who is in patient's network for further ureteral stent management WILI POST MD Jun 30, 2020 08:57
[2020-06-30] MEDS: MUPIROCIN 2 % TOPICAL CREAM 30GM TUBE. TP SCH ×2 (09:00→21:00)
[2020-06-30] MEDS: VITS A & D/LANOLIN TOPICAL OINTMENT 42GM TUBE. TP SCH ×2 (09:00→21:00)
--- NOTE | 2020-06-30 10:07 | NUR ---
SW following. Discussed with RN, pt from [facility], room air, ada diet. Pt accepted at [facility] pending insurance auth. CINTIA will continue to follow.
[2020-06-30] MEDS: MICAFUNGIN 100 MG in IV DEXTROSE 5% 100ML 100 ML IV SCH (10:54)
[2020-06-30 11:00] VITALS: BP 121/60
[2020-06-30] MEDS: DAPTOmycin (GENERIC) IVPB 640 MG in IV NORMAL SALINE 50ML 50 ML IV SCH (12:35)
[2020-06-30 15:00] VITALS: BP 145/83
[2020-06-30 19:15] VITALS: BP 161/84
[2020-06-30] MEDS: INSULIN GLARGINE SYRINGE. SQ SCH (21:54)
--- NOTE | 2020-06-30 23:03 | PDOC ---
SURGICAL PROGRESS NOTE DATE: 06/30/20 TIME: 23:02 Subjective Pt without new c/o Vital Signs Vital Signs Date Time Temp Pulse Resp B/P (MAP) Pulse Ox O2 Delivery O2 Flow Rate FiO2 06/30/20 21:51 20 93 Room Air 06/30/20 19:15 97.9 101 161/84 (109) 97.9 06/30/20 06:40 2.0 I&O Intake and Output 06/30/20 07:00 Intake Total 550 ml Output Total 3925 ml Balance -3375 ml Intake Oral 300 ml IV Total 250 ml Output Urine Total 2225 ml Stool Total 1700 ml General: Alert, Oriented X3, Cooperative, No acute distress Abdomen: Other (wound vac on) Labs Laboratory Tests Test 06/29/20 05:35 06/29/20 07:34 06/29/20 10:28 06/29/20 17:22 White Blood Count 7.7 x10^3/uL (4.0-11.0) Red Blood Count 3.48 x10^6/uL (4.30-5.70) Hemoglobin 10.2 g/dL (13.0-17.5) Hematocrit 30.3 % (39.0-53.0) Mean Corpuscular Volume 87 fL (79-100) Mean Corpuscular Hemoglobin 29 pg (25-35) Mean Corpuscular Hemoglobin Concent 34 g/dL (31-37) Red Cell Distribution Width 17.2 % (11.5-14.5) Platelet Count 322 x10^3/uL (140-400) Neutrophils (%) (Auto) 47 % (31-73) Lymphocytes (%) (Auto) 40 % (24-48) Monocytes (%) (Auto) 11 % (0-9) Eosinophils (%) (Auto) 2 % (0-3) Basophils (%) (Auto) 0 % (0-3) Neutrophils # (Auto) 3.6 x10^3/uL (1.8-7.7) Lymphocytes # (Auto) 3.1 x10^3/uL (1.0-4.8) Monocytes # (Auto) 0.9 x10^3/uL (0.0-1.1) Eosinophils # (Auto) 0.1 x10^3/uL (0.0-0.7) Basophils # (Auto) 0.0 x10^3/uL (0.0-0.2) Sodium Level 136 mmol/L (136-145) Potassium Level 3.8 mmol/L (3.5-5.1) Chloride Level 102 mmol/L (98-107) Carbon Dioxide Level 29 mmol/L (21-32) Anion Gap 5 (6-14) Blood Urea Nitrogen 10 mg/dL (8-26) Creatinine 0.5 mg/dL (0.7-1.3) Estimated GFR (Cockcroft-Gault) 170.2 Glucose Level 114 mg/dL (70-99) Calcium Level 8.5 mg/dL (8.5-10.1) Glucose (Fingerstick) 93 mg/dL (70-99) 131 mg/dL (70-99) 137 mg/dL (70-99) Test 06/29/20 21:53 06/30/20 07:07 Glucose (Fingerstick) 175 mg/dL (70-99) 100 mg/dL (70-99) Laboratory Tests Test 06/30/20 07:07 Glucose (Fingerstick) 100 mg/dL (70-99) Problem List Problems Medical Problems: (1) Decubitus ulcer Status: Acute (2) Hypoxia Status: Acute (3) Pneumonia Status: Acute (4) Sepsis Status: Acute Assessment/Plan s/p debridement cont per wound care with vac will sign off, but please call for questions. Justicifation of Admission Dx: Justifications for Admission: Justification of Admission Dx: N/A KATE PUENTE MD Jun 30, 2020 23:03
[2020-06-30 23:22] VITALS: BP 147/77
[2020-07-01] MEDS: oxyCODONE/APAP 5/325 1 TAB TABLET PO PRN ×6 (00:21→23:56)
[2020-07-01] MEDS: PIPERACILLIN/TAZOBACTAM 3.375 GM in IV NORMAL SALINE 50ML 50 ML IV SCH ×5 (00:31→23:54)
[2020-07-01] MEDS: MORPHINE SULFATE 4 MG/ML VIAL. IV PRN ×5 (02:24→21:26)
[2020-07-01 03:31] VITALS: BP 119/79
[2020-07-01] MEDS: PANTOPRAZOLE 40 MG TABLET.DR. PO SCH (05:09)
[2020-07-01] MEDS: POTASSIUM CHLORIDE 10 MEQ TABLET.ER. PO SCH ×2 (06:20→15:36)
[2020-07-01 07:00] VITALS: BP 141/76
[2020-07-01] MEDS: MULTIVITAMIN with MINERAL TABLET. PO SCH (07:46)
[2020-07-01] MEDS: LACTOBACILLUS RHAMNOSUS GG 1 CAPSULE. PO SCH ×2 (07:46→21:26)
[2020-07-01] MEDS: DOCUSATE SODIUM 100 MG CAPSULE. PO SCH ×2 (07:46→21:00)
[2020-07-01] MEDS: FUROSEMIDE 40 MG TABLET. PO SCH (07:47)
[2020-07-01] MEDS: MUPIROCIN 2 % TOPICAL CREAM 30GM TUBE. TP SCH ×2 (07:47→22:33)
[2020-07-01] MEDS: VITS A & D/LANOLIN TOPICAL OINTMENT 42GM TUBE. TP SCH ×2 (07:47→22:33)
[2020-07-01] MEDS: POLYETHYLENE GLYCOL 3350 17 GM PACKET. PO SCH (07:48)
[2020-07-01] MEDS: INSULIN LISPRO 300 UNITS/3 ML VIAL. SQ SCH ×3 (08:00→18:05)
--- NOTE | 2020-07-01 08:35 | PDOC ---
Infectious Disease Note Subjective: Subjective Patient feels better Postoperative pain is under control Denies cramps/N/V/F/C/SOA/rash Vital Signs: Vital Signs Vital Signs Date Time Temp Pulse Resp B/P (MAP) Pulse Ox O2 Delivery O2 Flow Rate FiO2 07/01/20 07:47 Room Air 07/01/20 07:00 97.6 88 17 141/76 (97) 95 97.6 07/01/20 02:54 2.0 Physical Exam: PHYSICAL EXAM GENERAL: Alert oriented x3 male lying in bed comfortably no acute distress watching TV HEENT: Anicteric. No thrush NECK: Supple, no JVD. LUNGS: Clear bilaterally. HEART: S1, S2. No murmurs. ABDOMEN: Soft, obese. Bowel sounds present, nontender, nondistended. GENITOURINARY: Duggan in place. EXTREMITIES: 1+ edema, no cyanosis, no clubbing. DERMATOLOGIC: Warm, dry. No generalized rash. Sacral wound vac in place. PIV looks okay. Medications: Inpatient Meds: Medications reviewed. Labs: Micro RUN DATE: 06/22/20 [facility] LAB *LIVE* PAGE 1 RUN TIME: 0820 Specimen Inquiry PATIENT: LILI MONTEMAYOR ACCT: [id number] LOC: [address] [place] [address] U: [id number] AGE/SX: 60/M ROOM: [facility] RE06/18/[address]: BUSTER LEMONS MD : 1960 BED: 1 DIS: STATUS: ADM IN TLOC: SPEC #: [id number] GABRIELE: 06/18/20 STATUS: COMP REQ #: [id number] RECD: 06/18/[address] [facility] [address]: EVERARDO FRIAS MD SOURCE: BLOOD ENTR: 06/19/[address] [facility] [address]: BUSTER LEMONS MD [facility]: ORDERED: BLD CULT - LC Procedure Result BLOOD CULTURE LC Final Final GRAM NEGATIVE RODS FINAL ID= [ESCHERICHIA COLI] ESCHERICHIA COLI ANTIMICROBIAL SUSCEPTIBILITY Final Comment NEG RAD 56 ESCHERICHIA COLI ANTIBIOTIC RESULT INTERPRETATION AMPICILLIN/SULBACTAM <=4/2 S AMIKACIN <=16 S AMPICILLIN <=8 S AMOXICILLIN/K CLAVULANATE <=8/4 S AZTREONAM <=4 S CEFTRIAXONE <=1 S CEFTAZIDIME <=1 S CEFOTAXIME <=2 S CEFOXITIN <=8 S CEFAZOLIN <=2 S CIPROFLOXACIN <=0.25 S CEFEPIME <=2 S CEFUROXIME <=4 S CEFTAZIDIME/AVIBACTAM <=4 S ERTAPENEM <=0.5 S GENTAMICIN <=2 S LEVOFLOXACIN <=0.5 S MEROPENEM <=1 S PIPERACILLIN/TAZOBACTAM <=8 S TRIMETHOPRIM/SULFAMETHOXAZOLE <=0.5/9.5 S TETRACYCLINE <=4 S TOBRAMYCIN <=2 S Unless otherwise specified, Testing Performed by: [address] [address] For Inquires, the Physician may contact the Microbiology department at [phone] CT abdomen and pelvis IMPRESSION: 1. Interval left nephroureteral stent placement. The recently demonstrated obstructing ureteral stone is no longer seen. There is gas within the bladder due to recent catheterization. 2. Punctate nonobstructing bilateral renal stones or vascular calcifications. 3. Open comminuted L1 compression fracture, stable compared to the prior study. There are additional more chronic appearing compression fractures throughout the thoracic and lumbar spine and there are sacral insufficiency fracture status post sacroplasty. 4. Small bilateral pleural effusions and partial left lower lobe consolidation superimposed on bilateral lower lobe atelectasis. 5. Suspected gallbladder sludge. 6. Gas within the buttock subcutaneous fat, possibly postprocedural or due to a medication injection sites. Correlate with exam findings to exclude an infectious etiology. There is also gas within the right ventral abdominal wall due to an injection site. Objective: Assessment: 1. Sepsis from gram-negative bacteremia. 2. E. coli bacteremia POA. 3. Constipation 4. Acute hypoxic respiratory failure, COVID-19 and influenza screen negative. 5. Diabetes. 6. Decubitus ulcers with necrotic eschcar..CT reviewed June 24 2020 S/P Excisional debridement of skin and subcutaneous tissue overlying sacrum cults E. coli and staph epidermidis 7. Generalized debility. 8. History of recent E. coli recurrent urosepsis here and at [facility] May 2020. 9. Protein-calorie malnutrition. 10. Hyponatremia. 11. H/O Ureteral stone status post ureteral stent repeat CT shows no residual ureteral stone Patient was not seen in outpatient urology clinic due to not being in network per discussion with advanced urology service Plan: Plan of Care Cont zosyn/micafungin/daptomycin for now F/U Intraop cults Continue local wound /vac care as directed. Monitor labs. ESR 127. Ck 11 Encouraged for offloading, patient does not comply with the same Patient did not have urology follow-up as outpatient after last discharge from [facility] for left ureteral stent management due to being out of network per discussion with urology at [facility] Upon discharge patient will need follow-up with urology who is in patient's network for further ureteral stent management PICC line Patient is awaiting transfer to LTAC later today Discussed with nursing staff WILI POST MD Jul 01, 2020 08:35
[2020-07-01] MEDS: MICAFUNGIN 100 MG in IV DEXTROSE 5% 100ML 100 ML IV SCH (09:55)
--- NOTE | 2020-07-01 10:06 | NUR ---
CINTIA following. Discussed with RN, pt from [facility], room air, ada diet. Pt accepted at [facility] pending insurance auth. CINTIA will continue to follow. Addendum: 07/01/20 at 1007 by ALEJANDRO CHAMBERLAIN Auth submitted 06/30/20 at 1145am.
--- NOTE | 2020-07-01 10:54 | NUR ---
PICC pre-insertion note Allergies and reactions NKDA INR N/A BUN 10 Cr 0.5 Platelets 322 Blood culture done Y blood culture results no growth x5 days Order Verified Y Consent signed Y Previous PICC placement N Past Medical/Surgical history and current diagnosis reviewed Y Patient Medical /Surgical History Related to PICC line placement Diabetes Infectious Disease consult Special considerations for PICC line placement None PICC placement indication custodial antibiotic usage, Ernestina Wilkes RN PICC Nurse Addendum: 07/01/20 at 1156 by ERNESTINA WILKES RN Amended: Links added.
[2020-07-01 11:00] VITALS: BP 158/81
--- NOTE | 2020-07-01 11:40 | NUR ---
PICC line insertion note Procedure: Following complete explanation of the PICC procedure including the indications, risks, and potential complications, informed consent was obtained. The possibility for infection was discussed along with signs, symptoms, and prevention. All the questions were answered. Written and verbal patient education was provided. Hand hygiene performed. Standardized central line checklist was utilized. The patient was placed in the supine position, the arm was prepped with chlorhexidine and patient draped with maximum sterile barrier. 4 mL 1% lidocaine was infiltrated into the skin to provide local anesthesia. A thorough assessment of right upper extremity completed. Using real-time ultrasound guidance and standardized micro puncture set, the basilic vein was punctured and a peel away sheath was placed using the modified Seldinger technique. A tip location device was used to ensure adequate catheter placement. The catheter was secured using a securement device and an antimicrobial patch was applied directly on the insertion site followed by a transparent dressing. All ports withdraw blood and flush without resistance. Patient tolerated the procedure without apparent complication(s). Single Lumen Power PICC placement successful and uncomplicated. Placement verified by EKG tip confirmation system and/or chest x-ray. Tip located in the CAJ/SVC Complications: None Catheter trimmed at 46cm with 1cm visible at insertion site.
[2020-07-01] MEDS: DAPTOmycin (GENERIC) IVPB 640 MG in IV NORMAL SALINE 50ML 50 ML IV SCH (12:08)
[2020-07-01 15:00] VITALS: BP 176/85
--- NOTE | 2020-07-01 17:17 | NUR ---
Wound Care Pt seen to assess wound vac dressing, pt stated he had a bowel movement awhile ago but didn't feel like moving until it was time to take his pain meds. Pt turned onto R side, large stool cleaned up, wound vac remains intact, but soiled vac drape was cut back and new applied. Vac showing strong seal at -125 mmHg, no leaks noted. Will keep current dressing in place, d/t the fact that pt may leave tomorrow for LTAC. If pt does not discharge, wound vac dressing will be changed tomorrow. Repositioned pt, but pt declined turning to L or R side, stated he would turn to his side after dinner. Pt again reminded about continued pressure on buttocks wounds slowing down wound healing, pt v/u.
--- NOTE | 2020-07-01 17:42 | PN ---
DATE: 07/01/2020 He is in room 404. SUBJECTIVE: This 60-year-old white male remains hospitalized, E. coli bacteremia and sepsis. He has had debridement of decubitus ulcers ____ with E. coli growing out of the same. He had acute respiratory failure on admission which is improved. He continues to be very motivated, but very weak. OBJECTIVE: VITAL SIGNS: Stable. He is afebrile. CHEST: Clear. HEART: Regular. ABDOMEN: Benign. He needs nail care. Sugars have been acceptable. ASSESSMENT: 1. Sepsis from Escherichia coli bacteremia, probably skin source. 2. Acute hypoxic respiratory failure, resolved. 3. Diabetes. 4. Decubitus ulcer, debrided with ongoing wound care and wound VAC. 5. Severe protein-calorie malnutrition. 6. Generalized weakness. PLAN: Continue antibiotics per ID. Wound care is ongoing. Therapy is working with the patient. He is diligent about doing exercises in the bed even when they are not there. We are awaiting approval for her transfer to LTAC on discharge. I am going to ask Podiatry to see him for nail care. TONY/BOB DR: Kobi TID: [id number]
[2020-07-01 19:00] VITALS: BP 138/80
[2020-07-01] MEDS: INSULIN GLARGINE SYRINGE. SQ SCH (22:35)
[2020-07-01 23:00] VITALS: BP 137/69
[2020-07-02] MEDS: MORPHINE SULFATE 4 MG/ML VIAL. IV PRN ×3 (03:04→13:19)
[2020-07-02] MEDS: oxyCODONE/APAP 5/325 1 TAB TABLET PO PRN ×3 (04:34→15:26)
[2020-07-02] MEDS: PANTOPRAZOLE 40 MG TABLET.DR. PO SCH ×2 (05:37→08:34)
[2020-07-02] MEDS: PIPERACILLIN/TAZOBACTAM 3.375 GM in IV NORMAL SALINE 50ML 50 ML IV SCH ×2 (05:37→10:24)
[2020-07-02 07:00] VITALS: BP 136/78
[2020-07-02] MEDS: LACTOBACILLUS RHAMNOSUS GG 1 CAPSULE. PO SCH (08:34)
[2020-07-02] MEDS: POTASSIUM CHLORIDE 10 MEQ TABLET.ER. PO SCH (08:34)
[2020-07-02] MEDS: MULTIVITAMIN with MINERAL TABLET. PO SCH (08:34)
[2020-07-02] MEDS: FUROSEMIDE 40 MG TABLET. PO SCH (08:35)
[2020-07-02] MEDS: MICAFUNGIN 100 MG in IV DEXTROSE 5% 100ML 100 ML IV SCH (08:36)
[2020-07-02] MEDS: MUPIROCIN 2 % TOPICAL CREAM 30GM TUBE. TP SCH (08:36)
[2020-07-02] MEDS: VITS A & D/LANOLIN TOPICAL OINTMENT 42GM TUBE. TP SCH (08:36)
--- NOTE | 2020-07-02 08:52 | PDOC ---
Infectious Disease Note Subjective: Subjective Patient feels better Postoperative pain is under control Had bowel movement yesterday Denies fever, nausea, vomiting, shortness of breath, diarrhea, abdominal pain, rash Otherwise as above Vital Signs: Vital Signs Vital Signs Date Time Temp Pulse Resp B/P (MAP) Pulse Ox O2 Delivery O2 Flow Rate FiO2 07/02/20 07:00 98.1 88 16 136/78 (97) 93 Room Air 98.1 Physical Exam: PHYSICAL EXAM GENERAL: Alert oriented x3 male lying in bed comfortably no acute distress watching TV HEENT: Anicteric. No thrush NECK: Supple, no JVD. LUNGS: Clear bilaterally. HEART: S1, S2. No murmurs. ABDOMEN: Soft, obese. Bowel sounds present, nontender, nondistended. GENITOURINARY: Duggan in place. EXTREMITIES: 1+ edema, no cyanosis, no clubbing. DERMATOLOGIC: Warm, dry. No generalized rash. Sacral wound vac in place. Right upper extremity PICC line clean Medications: Inpatient Meds: Medications reviewed. Labs: Lab Laboratory Tests Test 07/01/20 12:19 07/01/20 17:14 07/01/20 21:23 07/02/20 07:25 Glucose (Fingerstick) 118 mg/dL (70-99) 161 mg/dL (70-99) 148 mg/dL (70-99) 139 mg/dL (70-99) Micro RUN DATE: 06/22/20 [facility] LAB *LIVE* PAGE 1 RUN TIME: 819 Specimen Inquiry -- PATIENT: LILI MONTEMAYOR ACCT: [id number] LOC: [facility] U: [id number] AGE/SX: 60/M ROOM: 252 RE06/18/[address]: BUSTER LEMONS MD : 1960 BED: 1 DIS: STATUS: ADM IN TLOC: SPEC #: [id number] GABRIELE: 06/18/20 STATUS: COMP REQ #: [id number] RECD: 06/18/[address]: EVERARDO FRIAS MD SOURCE: BLOOD ENTR: 06/19/20 [facility] DR: BUSTER LEMONS MD [facility]: ORDERED: BLD CULT - LC Procedure Result BLOOD CULTURE LC Final Final GRAM NEGATIVE RODS FINAL ID= [ESCHERICHIA COLI] ESCHERICHIA COLI ANTIMICROBIAL SUSCEPTIBILITY Final Comment NEG RAD 56 ESCHERICHIA COLI ANTIBIOTIC RESULT INTERPRETATION AMPICILLIN/SULBACTAM <=4/2 S AMIKACIN <=16 S AMPICILLIN <=8 S AMOXICILLIN/K CLAVULANATE <=8/4 S AZTREONAM <=4 S CEFTRIAXONE <=1 S CEFTAZIDIME <=1 S CEFOTAXIME <=2 S CEFOXITIN <=8 S CEFAZOLIN <=2 S CIPROFLOXACIN <=0.25 S CEFEPIME <=2 S CEFUROXIME <=4 S CEFTAZIDIME/AVIBACTAM <=4 S ERTAPENEM <=0.5 S GENTAMICIN <=2 S LEVOFLOXACIN <=0.5 S MEROPENEM <=1 S PIPERACILLIN/TAZOBACTAM <=8 S TRIMETHOPRIM/SULFAMETHOXAZOLE <=0.5/9.5 S TETRACYCLINE <=4 S TOBRAMYCIN <=2 S Unless otherwise specified, Testing Performed by: [address] [address] For Inquires, the Physician may contact the Microbiology department at [phone] CT abdomen and pelvis IMPRESSION: 1. Interval left nephroureteral stent placement. The recently demonstrated obstructing ureteral stone is no longer seen. There is gas within the bladder due to recent catheterization. 2. Punctate nonobstructing bilateral renal stones or vascular calcifications. 3. Open comminuted L1 compression fracture, stable compared to the prior study. There are additional more chronic appearing compression fractures throughout the thoracic and lumbar spine and there are sacral insufficiency fracture status post sacroplasty. 4. Small bilateral pleural effusions and partial left lower lobe consolidation superimposed on bilateral lower lobe atelectasis. 5. Suspected gallbladder sludge. 6. Gas within the buttock subcutaneous fat, possibly postprocedural or due to a medication injection sites. Correlate with exam findings to exclude an infectious etiology. There is also gas within the right ventral abdominal wall due to an injection site. Objective: Assessment: 1. Sepsis from gram-negative bacteremia. 2. E. coli bacteremia POA. 3. Constipation 4. Acute hypoxic respiratory failure, COVID-19 and influenza screen negative. 5. Diabetes. 6. Decubitus ulcers with necrotic eschcar..CT reviewed June 24 2020 S/P Excisional debridement of skin and subcutaneous tissue overlying sacrum cults E. coli and staph epidermidis,latter suscep pending 7. Generalized debility. 8. History of recent E. coli recurrent urosepsis here and at [facility] May 2020. 9. Protein-calorie malnutrition. 10. Hyponatremia. 11. H/O Ureteral stone status post ureteral stent repeat CT shows no residual ureteral stone Patient was not seen in outpatient urology clinic due to not being in network per discussion with advanced urology service Plan: Plan of Care Cont zosyn/micafungin/daptomycin F/U Intraop cults,d/w micro staph epidermidis suscep pending Susceptibilities will be available latest by Monday per discussion with micro team at [facility] Continue local wound /vac care as directed. Monitor labs. ESR 127. Ck 11 Encouraged for offloading, patient does not comply with the same per team PICC line ordering clinician Patient is awaiting transfer to LTAC later today Patient did not have urology follow-up as outpatient after [facility] for [facility] ureteral stent management due to being out of network per discussion with urology at [facility] Upon discharge patient will need follow-up with urology who is in patient's network for further ureteral stent management Discussed with nursing staff WILI POST MD Jul 02, 2020 08:52
[2020-07-02] MEDS: DOCUSATE SODIUM 100 MG CAPSULE. PO SCH (08:55)
[2020-07-02] MEDS: POLYETHYLENE GLYCOL 3350 17 GM PACKET. PO SCH (08:55)
[2020-07-02] MEDS: INSULIN LISPRO 300 UNITS/3 ML VIAL. SQ SCH ×2 (08:55→12:46)
--- NOTE | 2020-07-02 09:42 | NUR ---
SW following. Discussed with RN, pt accepted at [facility] pending insurance auth. [facility] faxed updates to [facility]. Awaiting auth. [facility] has a bed for pt today if auth comes through. CINTIA will continue to follow. Addendum: 07/02/20 at 1254 by ALEJANDRO CHAMBERLAIN Insurance approved [facility]. Discharge paperwork faxed over. Transportation set up for 1530 with [facility]. RN and patient notified. No further SW needs.
[2020-07-02 11:00] VITALS: BP 151/70
[2020-07-02] MEDS: DAPTOmycin (GENERIC) IVPB 640 MG in IV NORMAL SALINE 50ML 50 ML IV SCH (12:42)
--- NOTE | 2020-07-02 14:08 | NUR ---
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
--- NOTE | 2020-07-02 15:10 | NUR ---
Wound/Ostomy Care Wound Type/Assessment: Patient seen per wound care for follow for removal of vac and dressing change as patient is scheduled to discharge today to [facility]. Patient is s/p I&D 06/[address] Noel to the right and left buttocks. Vac removed and wounds cleansed, assessed, measured, and pictured. Bilateral buttocks are necrotic with fat layer exposed and excoriated periwound, veraflo has begun to break down some of the tissue. Patient had BM and was cleaned up with chux changed. Treatment Recommendations/Plan: Recommendations for the vac at 125mmHg continuous to be resumed upon admission to [facility]. Wound redressed for discharged with saline moistened kerlix, ABD pads, and tape. Education provided: Patient eduated on dressing changes and PU treatment and management but patient still requested to lay on back side at this time. Offloading surface/device: TQ2H with purple wedge and a low air loss bed. Recommended Referrals/Tests: N/A Discharge Recommendations for dressings: Continue with wound vac therapy. Patient should follow up in the wound clinic after discharge from [facility] as well. The [facility] number is [phone]. Discussed POC with RN. Bed lowered and call light in reach.
--- NOTE | 2020-07-02 16:30 | NUR ---
Patient discharged with schaffer and Single lumen PICC.
--- NOTE | 2020-07-03 01:08 | PN ---
DATE: 07/02/2020 LOCATION: He is in room #404. SUBJECTIVE: This 60-year-old white male remains hospitalized with E. coli bacteremia and sepsis and acute respiratory failure, both of which are improved. He is awake and alert and very motivated to improve. We are awaiting approval from his insurance company for transfer to [facility]. OBJECTIVE: VITAL SIGNS: Stable. He is afebrile. CHEST: Clear. HEART: Regular. ABDOMEN: Benign. LABORATORY DATA: Sugars are good. IMPRESSION: 1. Sepsis from Escherichia coli bacteremia with probable skin source from his decubitus, which has been debrided and grew out E. coli. 2. Acute hypoxic respiratory failure, resolved. 3. Diabetes. 4. Severe protein-calorie malnutrition. 5. Generalized weakness. PLAN: Continue present antibiotics. Wound care is ongoing. We are awaiting LTAC transfer with the plan ____ therapy along with the wound care and antibiotics ____ and hopefully acute rehabilitation ____ getting back to a position of function where he could return to home, which is where he was prior to all this illness, which now is getting 2 months or more into it MAKENZIE/KRISTI DR: Kobi TID: [id number]
== END 2020-07-02 16:20 | DRG 853 ==
LOC: ER 15:50 → ED HOLD 17:45 → 2 SOUTH 22:43 → 6 SOUTH 06-22 11:32 → 4 NORTH 06-28 15:38
PROVIDERS: ADMIT Family Medicine; ATTEND Family Medicine
PROC: 0JB70ZZ Excision of Back Subcutaneous Tissue and Fascia, Open Approach (ICD-10-PCS; principal; 2020-06-24 14:15)
PROC: 02HV33Z Insertion of Infusion Device into Superior Vena Cava, Percutaneous Approach (ICD-10-PCS; 2020-07-01)
PROC: B548ZZA Ultrasonography of Superior Vena Cava, Guidance (ICD-10-PCS; 2020-07-01)
DX: A41.51 Sepsis due to Escherichia coli [E. coli] (principal); J18.9 Pneumonia, unspecified organism; J96.01 Acute respiratory failure with hypoxia; E43 Unspecified severe protein-calorie malnutrition; E11.52 Type 2 diabetes mellitus with diabetic peripheral angiopathy with gangrene; E87.1 Hypo-osmolality and hyponatremia; A09 Infectious gastroenteritis and colitis, unspecified; J98.11 Atelectasis; N20.2 Calculus of kidney with calculus of ureter; G93.40 Encephalopathy, unspecified; E11.9 Type 2 diabetes mellitus without complications; K59.00 Constipation, unspecified; Z20.822 Contact with and (suspected) exposure to COVID-19; Z87.442 Personal history of urinary calculi; E66.01 Morbid (severe) obesity due to excess calories; E78.00 Pure hypercholesterolemia, unspecified; E78.5 Hyperlipidemia, unspecified; I11.0 Hypertensive heart disease with heart failure; I50.9 Heart failure, unspecified; L98.429 Non-pressure chronic ulcer of back with unspecified severity; Z87.891 Personal history of nicotine dependence; Z96.659 Presence of unspecified artificial knee joint; L89.159 Pressure ulcer of sacral region, unspecified stage
CPT/HCPCS: 36415; 36569; 36600; 51702; 71045; 74176; 80048; 80053; 81001; 82140; 82550; 82805; 82962; 83605; 84484; 85025; 85651; 86140; 87040; 87071; 87075; 87077; 87186; 87205; 87426; 87804; 88304; 93005; 96361; 96374; 96375; A4930; A6253; A6266; A6402; J0696; J0878; J1100; J1170; J1650; J1815; J2248; J2250; J2270; J2405; J2543; J2704; J3010; J7030; J7060; Q9966; U0003; U0005; 97110-GP; 97112-GO; 97164-GP; 97530-GO; 97530-GP; 97535-GO; 99285-25; G0378

== ENCOUNTER 2021-06-01 17:59 | Inpatient (IN) | payer MEDICARE, OTHER ==
[~2021-06-01] VITALS: Ht 185.4 cm; Wt 115.6 kg
[~2021-06-01 17:59] MED LIST changes: +ACET325T21 PO; +BISA10SU55 RC; +DOCU-109 PO; +INSU100I13 SQ; +INSU100V6 SQ; +LISI10TA16 PO; +MULT-496 PO; +MUPI15CR8 TP; +OXYC1TAB15 PO; +PANT40TA77 PO; +POLY2500 PO; +POTA20TA4 PO
[2021-06-01] MEDS ORDERED: IV NORMAL SALINE 1000ML BAG 1,000 ML IV ONE (19:00)
--- NOTE | 2021-06-01 19:09 | PHYS DOC ---
Past Medical History Past Medical History: Diabetes-Type II, High Cholesterol, Hypertension, Other Additional Past Medical Histor: CHRONIC BACK PAIN, chronic bed sores, CDIFF (GA JUAREZ APRN) Past Surgical History: Knee Replacement Additional Past Surgical Histo: TOE AMPUTATION, ostomy placement,back surgery, wound debridement (GA JUAREZ APRN) Smoking Status: Former Smoker Alcohol Use: Heavy Drug Use: Marijuana (GA JUAREZ APRN) General Adult EDM: Chief Complaint: OSTOMY PROBLEM HPI: HPI: Patient is a 61-year-old male that presents today with diarrhea. Patient has a colostomy and he states since around 4:00 this morning he has had to change his colostomy bags approximately 10 times due to stool leaking from his ostomy bags. Patient states he did have a knee injection yesterday and Dr. Fay's office, and up until that time he had been in normal health. Patient denies chest pain, shortness of breath, fever, nausea, and vomiting, he says he has been increasing his by mouth fluid intake and he says once he eats something negative straight through and he stools it out in his bag. (GA JUAREZ TILE ROOFER) Review of Systems: Review of Systems: Constitutional: Denies fever or chills. [] Eyes: Denies change in visual acuity. [] HENT: Denies nasal congestion or sore throat. [] Respiratory: Denies cough or shortness of breath. [] Cardiovascular: Denies chest pain or edema. [] GI: Diarrhea stool from stoma site denies abdominal pain, nausea, vomiting, bloody stools. : Denies dysuria. [] Musculoskeletal: Denies back pain or joint pain. [] Integument: Denies rash. [] Neurologic: Denies headache, focal weakness or sensory changes. [] Endocrine: Denies polyuria or polydipsia. [] Lymphatic: Denies swollen glands. [] Psychiatric: Denies depression or anxiety. [] (GA JUAREZ TILE ROOFER) Heart Score: C/O Chest Pain: No Risk Factors: Risk Factors: DM, Current or recent (<one month) smoker, HTN, HLP, family history of CAD, obesity. Risk Scores: Score 0 - 3: 2.5% MACE over next 6 weeks - Discharge Home Score 4 - 6: 20.3% MACE over next 6 weeks - Admit for Clinical Observation Score 7 - 10: 72.7% MACE over next 6 weeks - Early Invasive Strategies (GA JUAREZ APRN) Allergies: Allergies: Allergies Coded Allergies Type Severity Reaction Last Updated Verified ibuprofen Adverse Reaction Intermediate abd pain 06/01/21 Yes (GA JUAREZ APRN) Physical Exam: PE: Constitutional: Well developed, well nourished, MILD distress, non-toxic appearance. [] HENT: Normocephalic, atraumatic, bilateral external ears normal, oropharynx moist, no oral exudates, nose normal. [] Eyes: PERRLA, EOMI, conjunctiva normal, no discharge. [] Neck: Normal range of motion, no tenderness, supple, no stridor. [] Cardiovascular:Heart rate regular rhythm, no murmur [] Lungs & Thorax: Bilateral breath sounds clear to auscultation [] Abdomen: Bowel sounds hyperactive, abdomen is bloated, tenderness located in the right upper quadrant, stoma is located in the right upper quadrant skin around the stoma is very erythema around the stoma site, colostomy bag is in place Skin: Warm, dry, no erythema, no rash. [] Back: No tenderness, no CVA tenderness. [] Extremities: No tenderness, no cyanosis, no clubbing, ROM intact, 1+ edema bilateral legs Neurologic: Alert and oriented X 3, normal motor function, normal sensory function, no focal deficits noted. [] Psychologic: Affect normal, judgement normal, mood normal. [] (GA JUAREZ TILE ROOFER) Current Patient Data: Labs: Laboratory Tests Test 06/01/21 18:47 Urine Collection Type Unknown Urine Color (Auto) Light orange Urine Turbidity Hazy Urine pH (Auto) 5.[address] [place] 1.023 Urine Protein (Auto) 100 mg/dL Urine Glucose (Auto)(UA) Negative mg/dL Urine Ketones (Auto) Negative mg/dL Urine Blood (Auto) Large Urine Nitrite Negative Urine Bilirubin (Auto) Negative Urine Urobilinogen (Auto) Normal mg/dL Urine Leukocyte Esterase (Auto) Large Urine RBC Tntc /HPF Urine WBC Tntc /HPF Urine Bacteria 0 /HPF Urine Mucus Mod /LPF Urine Yeast Present /HPF Current Medications Medications (Trade) Dose Ordered Sig/Triny Route PRN Reason Start Time Stop Time Status Last Admin Dose Admin Sodium Chloride 1,000 ml @ 999 mls/hr 1X ONCE IV 06/01/21 19:00 06/01/21 20:00 DC 06/01/21 20:19 Vital Signs: Vital Signs Date Time Temp Pulse Resp B/P (MAP) Pulse Ox O2 Delivery O2 Flow Rate FiO2 06/01/21 18:45 99.7 109 20 148/68 (94) 99 Room Air 99.7 (GA JUAREZ TILE ROOFER) EKG: EKG: [] (GA JUAREZ TILE ROOFER) Radiology/Procedures: Radiology/Procedures: [] (GA JUAREZ APRN) Radiology/Procedures: EXAMINATION: CT ABDOMEN+PELVIS W CLINICAL HISTORY: DIARRHEA AND ABDOMINAL PAIN. TECHNIQUE: CT of the abdomen and pelvis was performed using standard technique, scanning from just above the dome of the diaphragm to the symphysis pubis following administration of intravenous contrast. CT Dose Reduction Employed: One or more of the following individualized dose reduction techniques were utilized for this examination: 1. Automated exposure control 2. Adjustment of the mA and/or kV according to patient size 3. Use of iterative reconstruction technique. COMPARISON: 06/22/2020 FINDINGS: Coronary atherosclerotic calcifications/stents, incompletely evaluated. Mild bibasilar subsegmental atelectasis and/or scarring. Partial fatty atrophy of the pancreas. Liver, gallbladder, spleen, and adrenal glands unremarkable. Left nephroureteral stent with mild pelviectasis and prominent peripelvic and periureteral stranding. Small nonobstructive bilateral renal calculi. Mildly filled urinary bladder. Nonenlarged prostate with central calcifications. No bowel dilation or definite wall thickening. Right lower quadrant ostomy. [id number] arterial atherosclerotic ossification without aneurysm. No evidence of acute osseous abnormality. Chronic changes and postoperative findings in the thoracolumbar spine and sacrum, similar to prior study. IMPRESSION: Left nephroureteral stent with mild pelviectasis and peripelvic and periureteral stranding, correlate for infection. Right lower quadrant ostomy. Additional nonacute findings as described, similar to prior study. Electronically signed by: Bc Denny DO (06/02/2021 12:54 AM) [facility] DICTATED and SIGNED BY: BC DENNY DO DATE: 06/02/21 0046 (ART BERNARD MD) Course & Med Decision Making: Course & Med Decision Making Pertinent Labs and Imaging studies reviewed. (See chart for details) 2030 continue to await lab results, will sign out to Dr. Bernard. (GA JUAREZ APRN) Course & Med Decision Making I assumed care from the midlevel practitioner at the end of her shift. In brief, 61-year-old comorbid male presenting for evaluation of copious watery ostomy output over the course of the last day. Vital signs and clinical examination are generally reassuring. Patient declines to allow me to examine his sacral decubitus wound but assures me that it is at baseline, was just redressed by his home health nurse earlier today, and is not bothering him today. Labs and imaging with results as above, significant primarily for evidence of left-sided pyelonephritis by urine testing and CT. Rest of lab work is generally benign. Have opted to cover broadly with a dose of Zosyn after cultures given comorbidities and intercurrent watery diarrhea. Have sent an enteric panel. Patient resting comfortably in no acute distress on serial reassessments. Will bring in for further care under Dr. Lemons, who graciously accepts the patient to his service. We will place a consult to urology for evaluation given pyelonephritis in the setting of ureteral stenting on the left. (ART BERNARD MD) Dragon Disclaimer: Dragon Disclaimer: This electronic medical record was generated, in whole or in part, using a voice recognition dictation system. (GA JUAREZ APRN) Departure Departure Impression: Primary Impression: Acute pyelonephritis Additional Impression: Acute diarrhea Disposition: ADMITTED INPATIENT Condition: STABLE Referrals: BUSTER LEMONS MD (PCP) GA JUAREZ APRN Jun 01, 2021 19:09 ART BERNARD MD Jun 02, 2021 01:30
[2021-06-01 19:28] LABS: BACTERIA,URINE 0 /HPF (0-FEW); RBC,URINE TNTC /HPF (0-2); WBC,URINE TNTC /HPF (0-4); YEAST,URINE PRESENT /HPF
[2021-06-01 21:35] LABS: BASO % 0 % (0-3); EOS % 0 % (0-3); HEMATOCRIT 35.6 % (39.0-53.0); LYMPH # 0.3 x10^3/uL (1.0-4.8); LYMPH % 4 % (24-48); MEAN CORPUSCULAR HEMOGLOBIN 27 pg (25-35); MEAN CORPUSCULAR HGB CONC 34 g/dL (31-37); MEAN CORPUSCULAR VOLUME 79 fL (79-100); MONO # 0.8 x10^3/uL (0.0-1.1); MONO % 11 % (0-9); NEUT # 6.4 x10^3/uL (1.8-7.7); NEUT % 85 % (31-73); PLATELET COUNT 270 x10^3/uL (140-400); RED BLOOD COUNT 4.52 x10^6/uL (4.30-5.70); RED CELL DISTRIBUTION WIDTH 18.4 % (11.5-14.5); WHITE BLOOD COUNT 7.5 x10^3/uL (4.0-11.0)
[2021-06-01 22:04] LABS: ALBUMIN 3.5 g/dL (3.4-5.0); ALBUMIN/GLOBULIN RATIO 0.7 (1.0-1.7); CALCIUM 9.3 mg/dL (8.5-10.1); CREATININE 1.1 mg/dL (0.7-1.3); GFR 68.3; POTASSIUM 4.5 mmol/L (3.5-5.1); TOTAL BILIRUBIN 0.4 mg/dL (0.2-1.0); TOTAL PROTEIN 8.3 g/dL (6.4-8.2)
[2021-06-01] MEDS ORDERED: CONTRAST GIVEN. MC PRN (22:30)
[2021-06-01] MEDS ORDERED: IOHEXOL 300 MG/ML 100ML VIAL. IV ONE (23:00)
[2021-06-01] MEDS ORDERED: HYDROmorphone 2 MG/ML INJ. IVP ONE (23:30)
[2021-06-02] MEDS ORDERED: PIPERACILLIN/TAZOBACTAM 4.5 GM in IV DEXTROSE 5% 100ML 100 ML IV ONE (00:30)
--- NOTE | 2021-06-02 00:56 | RAD ---
EXAMINATION: CT ABDOMEN+PELVIS W CLINICAL HISTORY: DIARRHEA AND ABDOMINAL PAIN. TECHNIQUE: CT of the abdomen and pelvis was performed using standard technique, scanning from just ab ove the dome of the diaphragm to the symphysis pubis following administration of intravenous contrast . CT Dose Reduction Employed: One or more of the following individualized dose reduction techniques wer e utilized for this examination: 1. Automated exposure control 2. Adjustment of the mA and/or kV ac cording to patient size 3. Use of iterative reconstruction technique. COMPARISON: 06/22/2020 FINDINGS: Coronary atherosclerotic calcifications/stents, incompletely evaluated. Mild bibasilar subsegmental a telectasis and/or scarring. Partial fatty atrophy of the pancreas. Liver, gallbladder, spleen, and adrenal glands unremarkable. Left nephroureteral stent with mild pelviectasis and prominent peripelvic and periureteral stranding. Small nonobstructive bilateral renal calculi. Mildly filled urinary bladder. Nonenlarged prostate with central calcifications. No bowel dilation or definite wall thickening. Right lower quadrant ostomy. [id number] arterial atherosclerotic ossification without aneurysm. No evidence of acute osseous abnormality. Chronic changes and postoperative findings in the thoracolu mbar spine and sacrum, similar to prior study. IMPRESSION: Left nephroureteral stent with mild pelviectasis and peripelvic and periureteral stranding, correlate for infection. Right lower quadrant ostomy. Additional nonacute findings as described, similar to prior study. Electronically signed by: Bc Omer DO (06/02/2021 12:54 AM) [facility]
[2021-06-02] MEDS ORDERED: PIPERACILLIN/TAZOBACTAM 4.5 GM in IV NORMAL SALINE 100ML 100 ML IV ONE (01:00)
[2021-06-02] MEDS ORDERED: ACETAMINOPHEN 325 MG TABLET. PO PRN (01:30)
[2021-06-02] MEDS ORDERED: MORPHINE SULFATE 2 MG/ML INJ. IVP PRN (01:30)
[2021-06-02] MEDS ORDERED: PIP/TAZO PER PHARMACY MC PRN (01:30)
[2021-06-02] MEDS ORDERED: ONDANSETRON PF 4 MG/2 ML VIAL. IVP PRN (01:30)
[2021-06-02 03:13] VITALS: BP 147/68
[2021-06-02] MEDS: IV NORMAL SALINE 1000ML BAG 1,000 ML IV SCH ×2 (04:28→17:05)
[2021-06-02] MEDS: PIPERACILLIN/TAZOBACTAM 3.375 GM in IV NORMAL SALINE 50ML 50 ML IV SCH ×3 (06:10→17:04)
[2021-06-02 07:00] VITALS: BP 156/78
[2021-06-02] MEDS: MULTIVITAMIN with MINERAL TABLET. PO SCH (09:58)
[2021-06-02] MEDS: LISINOPRIL 10 MG TABLET PO SCH (09:59)
[2021-06-02 11:00] VITALS: BP 146/71
--- NOTE | 2021-06-02 11:22 | PREOP HP ---
DATE OF SERVICE: 06/02/2021 LOCATION: He is in room 663. HISTORY OF PRESENT ILLNESS: This 61-year-old male contacted me on the phone yesterday with profuse diarrhea. He has been through 12 colostomy bags. He was becoming progressively weaker. He had been on a clear liquid diet and was sent to the ER where he was admitted for the same. PAST MEDICAL HISTORY: Past medical history is extensive and includes type 2 diabetes, hyperlipidemia, hypertension, chronic back pain. He has had C. diff. He has a diverting colostomy because of sacral decubitus ulcers which have been very slow to heal. Has ongoing wound care per home health at home. He has had a prior knee replacement, toe amputation, ileostomy placement, back surgery, wound debridement. MEDICATIONS: Brought with the patient, listed on the computer have been addressed. ALLERGIES: HE IS ALLERGIC TO IBUPROFEN. SOCIAL HISTORY: Former smoker, drinks relatively heavily, does use marijuana. FAMILY HISTORY: Noncontributory. REVIEW OF SYSTEMS: As mentioned above. OBJECTIVE: GENERAL: He is a well-developed, well-nourished male, awake, alert, oriented, does feel like the diarrhea has slowed down somewhat. Has IV fluids running. HEAD, EYES, EARS, NOSE AND THROAT: Unremarkable. NECK: Supple, without adenopathy or thyromegaly. CHEST: Clear to auscultation. HEART: Regular rate and rhythm. ABDOMEN: Soft, nontender, without hepatosplenomegaly or masses. He does have a peristomal hernia. EXTREMITIES: Without cyanosis, clubbing, significant edema. NEUROLOGIC: He is intact. His sacral wounds were dressed. LABORATORY DATA: Initial laboratory is remarkable for normal white count. Chemistry panel predominantly remarkable for BUN of 36, creatinine 1.1, consistent with some dehydration. Lactic acid was normal. Procalcitonin mildly elevated. Urine shows evidence of urinary tract infection and abdomen and pelvis CT scanning shows a left nephroureteral stent with probable pyelonephritis, along with right lower quadrant ostomy. I cannot recall when the left ureteral stent was placed and for why and we will have to have Urology come by to help us with the same. He has been to multiple different venues over a long illness. IMPRESSION: 1. Profuse diarrhea with dehydration. 2. Urinary tract infection with likely pyelonephritis. 3. Ongoing wounds, particularly sacral. PLAN: Hydration. Diet: Clear liquids. At this point, Urology and Wound Care consults. Continue antibiotics for UTI until we get bugs back. TONY DR: Kobi TID: [id number]
--- NOTE | 2021-06-02 11:33 | NUR ---
SS following for discharge planning. SS reviewed pt chart and discussed with pt RN. Pt is from home and is currently room air. Urology and wound care following. Pt on IV Zosyn. SS will continue to follow for discharge planning.
[2021-06-02] MEDS: oxyCODONE/APAP 5/325 1 TAB TABLET PO PRN ×3 (11:53→18:38)
--- NOTE | 2021-06-02 12:23 | PDOC2 ---
UROLOGY CONSULT Date of Service DATE: 06/02/21 TIME: 12:13 Reason for Consult Reason for Consult: retained stent Identification/Chief Complaint Chief Complaint diarrhea History of Present Illness Reason for Visit: 61yo male presented to ER for diarrhea ongoing for several days leading to progressive weakness. CT a/p in the ER showed retained left ureteral stent. UA showed RBC/WBC but no bacteria. Pt was started on abx and admitted for further care. He is currently on a clear liquid diet. Pt is very irritated on my visit, stating that he hasn't gotten any pain medication for several hours. Also c/o that his colostomy bag is full and needs to empty it. He is unclear about the circumstances regarding stent placement--date, location, surgeon, indication. He was unaware that he even had a stent in place. Upon review of [facility] records, Dr. Gamez at [facility] performed left ureteroscopy for UPJ stone on 06/02/2020 and left a stent in place. Pt was a no-show to his urology follow-up. Denies fevers. Past Medical History Cardiovascular: CHF, HTN, Hyperlipidemia GI: Constipation Psych: Addictions Endocrine: Diabetes Past Surgical History Past Surgical History: Other Family History Family History: Family History Unknown Current Medications Current Medications Current Medications Acetaminophen (Tylenol) 650 mg PRN Q4HRS PRN PO FEVER > 100.3'F; Start 06/02/21 at 01:30; Stop 06/03/21 at 01:29 Hydromorphone HCl (Dilaudid) 1 mg 1X ONCE IVP Last administered on 06/01/21at 23:08; Start 06/01/21 at 23:30; Stop 06/01/21 at 23:31; Status DC Info (CONTRAST GIVEN -- Rx MONITORING) 1 each PRN DAILY PRN MC SEE COMMENTS; Start 06/01/21 at 22:30; Stop 06/03/21 at 22:29 Iohexol (Omnipaque 300 Mg/ml) 75 ml 1X ONCE IV Last administered on 06/01/21at 23:00; Start 06/01/21 at 23:00; Stop 06/01/21 at 23:01; Status DC Lisinopril (Prinivil) 10 mg DAILY PO Last administered on 06/02/21at 09:59; Start 06/02/21 at 09:00 Morphine Sulfate (Morphine Sulfate) 2 mg PRN Q2HR PRN IVP SEVERE PAIN 7-10 Last administered on 06/02/21at 06:10; Start 06/02/21 at 01:30; Stop 06/03/21 at 01:29 Multivitamins (Thera M Plus) 1 tab DAILY PO Last administered on 06/02/21at 09:58; Start 06/02/21 at 09:00 Ondansetron HCl (Zofran) 4 mg PRN Q8HRS PRN IVP NAUSEA/VOMITING 1ST CHOICE; Start 06/02/21 at 01:30; Stop 06/03/21 at 01:29 Oxycodone/ Acetaminophen (Percocet 5/325) 1 tab PRN Q6HRS PRN PO PAIN; Start 06/02/21 at 08:00 Pantoprazole Sodium (Protonix) 40 mg DAILYAC PO ; Start 06/03/21 at 07:30 Piperacillin Sod/ Tazobactam Sod (Zosyn Per Pharmacy) 1 each PRN DAILY PRN MC SEE COMMENTS; Start 06/02/21 at 01:30 Piperacillin Sod/ Tazobactam Sod 3.375 gm/Sodium Chloride 50 ml @ 100 mls/hr Q6HRS IV Last administered on 06/02/21at 11:54; Start 06/02/21 at 06:00 Piperacillin Sod/ Tazobactam Sod 4.5 gm/Dextrose 100 ml @ 200 mls/hr 1X ONCE IV Last administered on 06/02/21at 01:13; Start 06/02/21 at 00:30; Stop 06/02/21 at 00:59; Status DC Piperacillin Sod/ Tazobactam Sod 4.5 gm/Sodium Chloride 100 ml @ 200 mls/hr 1X ONCE IV ; Start 06/02/21 at 01:00; Stop 06/02/21 at 01:29; Status Cancel Sodium Chloride 1,000 ml @ 75 mls/hr [id number] IV Last administered on 06/02/21at 04:28; Start 06/02/21 at 02:00; Stop 06/03/21 at 01:59 Sodium Chloride 1,000 ml @ 999 mls/hr 1X ONCE IV Last administered on 06/01/21at 20:19; Start 06/01/21 at 19:00; Stop 06/01/21 at 20:00; Status DC Allergies Allergies: Coded Allergies: ibuprofen (Verified Adverse Reaction, Intermediate, abd pain, 06/01/21) ROS Review Of Systems: CONSTITUTIONAL: No fever or chills EYES: No recent changes SKIN: No rash or itching CARDIOVASCULAR: No chest pain, syncope, palpitations, or edema RESPIRATORY: No SOB or cough GASTROINTESTINAL: diarrhea NEUROLOGICAL: No headaches or weakness ENDOCRINE: No cold or heat intolerance GENITOURINARY: No urgency or frequency of urination MUSCULOSKELETAL: No back pain or joint pain LYMPHATICS: No enlarged lymph nodes PSYCHIATRIC: No anxiety or depression Physical Exam Physical Exam: General: Pleasant, no acute distress, well groomed Eyes: conjunctiva anicteric, eyes full range of motion ENT: moist oral mucosa, normal dentition Neck: Trachea midline, no masses Respiratory: unlabored breathing, not using accessory muscles, no crackles or wheezes Cardiovascular: Regular rate and rhythm, no peripheral edema Abdomen: nontender, nondistended, colostomy in place Skin: no rashes or skin lesions on visualized skin Psych: normal mood, affect. Alert and oriented x 3. Vitals VITALS Vital Signs Date Time Temp Pulse Resp B/P (MAP) Pulse Ox O2 Delivery O2 Flow Rate FiO2 06/02/21 11:00 98.7 86 18 146/71 (96) 96 Room Air 98.7 Labs Labs Laboratory Tests Test 06/01/21 18:47 06/01/21 21:00 06/01/21 21:05 06/02/21 08:12 Urine Collection Type Unknown Urine Color (Auto) Light orange Urine Turbidity Hazy Urine pH (Auto) 5.5 (<5.0-8.0) Urine Specific [place] 1.023 (1.000-1.030) Urine Protein (Auto) 100 mg/dL (Negative) Urine Glucose (Auto)(UA) Negative mg/dL (Negative) Urine Ketones (Auto) Negative mg/dL (Negative) Urine Blood (Auto) Large (Negative) Urine Nitrite Negative (Negative) Urine Bilirubin (Auto) Negative (Negative) Urine Urobilinogen (Auto) Normal mg/dL (Normal) Urine Leukocyte Esterase (Auto) Large (Negative) Urine RBC Tntc /HPF (0-2) Urine WBC Tntc /HPF (0-4) Urine Bacteria 0 /HPF (0-FEW) Urine Mucus Mod /LPF Urine Yeast Present /HPF White Blood Count 7.5 x10^3/uL (4.0-11.0) Red Blood Count 4.52 x10^6/uL (4.30-5.70) Hemoglobin 12.0 g/dL (13.0-17.5) Hematocrit 35.6 % (39.0-53.0) Mean Corpuscular Volume 79 fL (79-100) Mean Corpuscular Hemoglobin 27 pg (25-35) Mean Corpuscular Hemoglobin Concent 34 g/dL (31-37) Red Cell Distribution Width 18.4 % (11.5-14.5) Platelet Count 270 x10^3/uL (140-400) Neutrophils (%) (Auto) 85 % (31-73) Lymphocytes (%) (Auto) 4 % (24-48) Monocytes (%) (Auto) 11 % (0-9) Eosinophils (%) (Auto) 0 % (0-3) Basophils (%) (Auto) 0 % (0-3) Neutrophils # (Auto) 6.4 x10^3/uL (1.8-7.7) Lymphocytes # (Auto) 0.3 x10^3/uL (1.0-4.8) Monocytes # (Auto) 0.8 x10^3/uL (0.0-1.1) Eosinophils # (Auto) 0.0 x10^3/uL (0.0-0.7) Basophils # (Auto) 0.0 x10^3/uL (0.0-0.2) Sodium Level 133 mmol/L (136-145) Potassium Level 4.5 mmol/L (3.5-5.1) Chloride Level 100 mmol/L (98-107) Carbon Dioxide Level 22 mmol/L (21-32) Anion Gap 11 (6-14) Blood Urea Nitrogen 36 mg/dL (8-26) Creatinine 1.1 mg/dL (0.7-1.3) Estimated GFR (Cockcroft-Gault) 68.3 BUN/Creatinine Ratio 33 (6-20) Glucose Level 131 mg/dL (70-99) Calcium Level 9.3 mg/dL (8.5-10.1) Total Bilirubin 0.4 mg/dL (0.2-1.0) Aspartate Amino Transf (AST/SGOT) 24 U/L (15-37) Alanine Aminotransferase (ALT/SGPT) 17 U/L (16-63) Alkaline Phosphatase 105 U/L (46-116) Total Protein 8.3 g/dL (6.4-8.2) Albumin 3.5 g/dL (3.4-5.0) Albumin/Globulin Ratio 0.7 (1.0-1.7) Procalcitonin 0.13 ng/mL (0.00-0.10) Lactic Acid Level 1.6 mmol/L (0.4-2.0) Glucose (Fingerstick) 138 mg/dL (70-99) Test 06/02/21 11:28 Glucose (Fingerstick) 123 mg/dL (70-99) Laboratory Tests Test 06/01/21 18:47 06/01/21 21:00 06/01/21 21:05 06/02/21 08:12 Urine Collection Type Unknown Urine Color (Auto) Light orange Urine Turbidity Hazy Urine pH (Auto) 5.5 (<5.0-8.0) Urine Specific [place] 1.023 (1.000-1.030) Urine Protein (Auto) 100 mg/dL (Negative) Urine Glucose (Auto)(UA) Negative mg/dL (Negative) Urine Ketones (Auto) Negative mg/dL (Negative) Urine Blood (Auto) Large (Negative) Urine Nitrite Negative (Negative) Urine Bilirubin (Auto) Negative (Negative) Urine Urobilinogen (Auto) Normal mg/dL (Normal) Urine Leukocyte Esterase (Auto) Large (Negative) Urine RBC Tntc /HPF (0-2) Urine WBC Tntc /HPF (0-4) Urine Bacteria 0 /HPF (0-FEW) Urine Mucus Mod /LPF Urine Yeast Present /HPF White Blood Count 7.5 x10^3/uL (4.0-11.0) Red Blood Count 4.52 x10^6/uL (4.30-5.70) Hemoglobin 12.0 g/dL (13.0-17.5) Hematocrit 35.6 % (39.0-53.0) Mean Corpuscular Volume 79 fL (79-100) Mean Corpuscular Hemoglobin 27 pg (25-35) Mean Corpuscular Hemoglobin Concent 34 g/dL (31-37) Red Cell Distribution Width 18.4 % (11.5-14.5) Platelet Count 270 x10^3/uL (140-400) Neutrophils (%) (Auto) 85 % (31-73) Lymphocytes (%) (Auto) 4 % (24-48) Monocytes (%) (Auto) 11 % (0-9) Eosinophils (%) (Auto) 0 % (0-3) Basophils (%) (Auto) 0 % (0-3) Neutrophils # (Auto) 6.4 x10^3/uL (1.8-7.7) Lymphocytes # (Auto) 0.3 x10^3/uL (1.0-4.8) Monocytes # (Auto) 0.8 x10^3/uL (0.0-1.1) Eosinophils # (Auto) 0.0 x10^3/uL (0.0-0.7) Basophils # (Auto) 0.0 x10^3/uL (0.0-0.2) Sodium Level 133 mmol/L (136-145) Potassium Level 4.5 mmol/L (3.5-5.1) Chloride Level 100 mmol/L (98-107) Carbon Dioxide Level 22 mmol/L (21-32) Anion Gap 11 (6-14) Blood Urea Nitrogen 36 mg/dL (8-26) Creatinine 1.1 mg/dL (0.7-1.3) Estimated GFR (Cockcroft-Gault) 68.3 BUN/Creatinine Ratio 33 (6-20) Glucose Level 131 mg/dL (70-99) Calcium Level 9.3 mg/dL (8.5-10.1) Total Bilirubin 0.4 mg/dL (0.2-1.0) Aspartate Amino Transf (AST/SGOT) 24 U/L (15-37) Alanine Aminotransferase (ALT/SGPT) 17 U/L (16-63) Alkaline Phosphatase 105 U/L (46-116) Total Protein 8.3 g/dL (6.4-8.2) Albumin 3.5 g/dL (3.4-5.0) Albumin/Globulin Ratio 0.7 (1.0-1.7) Procalcitonin 0.13 ng/mL (0.00-0.10) Lactic Acid Level 1.6 mmol/L (0.4-2.0) Glucose (Fingerstick) 138 mg/dL (70-99) Test 06/02/21 11:28 Glucose (Fingerstick) 123 mg/dL (70-99) Images Images FINDINGS: Coronary atherosclerotic calcifications/stents, incompletely evaluated. Mild bibasilar subsegmental atelectasis and/or scarring. Partial fatty atrophy of the pancreas. Liver, gallbladder, spleen, and adrenal glands unremarkable. Left nephroureteral stent with mild pelviectasis and prominent peripelvic and periureteral stranding. Small nonobstructive bilateral renal calculi. Mildly filled urinary bladder. Nonenlarged prostate with central calcifications. No bowel dilation or definite wall thickening. Right lower quadrant ostomy. [id number]-[id number] arterial atherosclerotic ossification without aneurysm. No evidence of acute osseous abnormality. Chronic changes and postoperative findings in the thoracolumbar spine and sacrum, similar to prior study. IMPRESSION: Left nephroureteral stent with mild pelviectasis and peripelvic and periureteral stranding, correlate for infection. Right lower quadrant ostomy. Additional nonacute findings as described, similar to prior study. Electronically signed by: Bc Omer DO (06/02/2021 12:54 AM) [facility] Assessment/Plan Assessment/Plan Retained left ureteral stent UA with RBC, WBC, no bacteria. May be due to stent however empiric abx on-board, f/u cultures. Reviewed images, stent does not appear to be severely encrusted. Recommend cystoscopy, left ureteral stent removal at bedside. D/w pt process of removal. He was very adamant that he did not want this done today because he does not feel well. I discussed with him the risk of retained stent and importance of removal. He voiced understanding of this, now that he is aware of the stent. Will see him again tomorrow. Will work on scheduling patient for stent removal in the clinic with Dr. Gamez. D/w Dr. Walton. NANCY YOUNG Jun 02, 2021 12:23
[2021-06-02 15:00] VITALS: BP 169/77
--- NOTE | 2021-06-02 18:36 | NUR ---
Patient's and daughter were at bedside for discharge instructions and to transport patient home. All questions answered. All were comfortable with discharge.
[2021-06-02 19:47] VITALS: BP 150/75
[2021-06-02 22:23] VITALS: BP 162/78
[2021-06-03] MEDS: PIPERACILLIN/TAZOBACTAM 3.375 GM in IV NORMAL SALINE 50ML 50 ML IV SCH ×4 (00:14→17:12)
[2021-06-03] MEDS: oxyCODONE/APAP 5/325 1 TAB TABLET PO PRN ×5 (00:20→21:21)
[2021-06-03 03:23] VITALS: BP 174/71
[2021-06-03 05:13] LABS: BASO % 0 % (0-3); EOS % 0 % (0-3); HEMATOCRIT 35.1 % (39.0-53.0); HEMOGLOBIN 11.3 g/dL (13.0-17.5); LYMPH # 0.7 x10^3/uL (1.0-4.8); LYMPH % 15 % (24-48); MEAN CORPUSCULAR HEMOGLOBIN 26 pg (25-35); MEAN CORPUSCULAR HGB CONC 32 g/dL (31-37); MEAN CORPUSCULAR VOLUME 80 fL (79-100); MONO # 0.7 x10^3/uL (0.0-1.1); MONO % 16 % (0-9); NEUT # 3.2 x10^3/uL (1.8-7.7); NEUT % 69 % (31-73); PLATELET COUNT 188 x10^3/uL (140-400); RED BLOOD COUNT 4.42 x10^6/uL (4.30-5.70); RED CELL DISTRIBUTION WIDTH 18.3 % (11.5-14.5); WHITE BLOOD COUNT 4.7 x10^3/uL (4.0-11.0)
[2021-06-03 05:45] LABS: ALBUMIN 3.2 g/dL (3.4-5.0); ALBUMIN/GLOBULIN RATIO 0.8 (1.0-1.7); CALCIUM 8.5 mg/dL (8.5-10.1); CREATININE 0.9 mg/dL (0.7-1.3); GFR 86.1; POTASSIUM 3.8 mmol/L (3.5-5.1); TOTAL BILIRUBIN 0.2 mg/dL (0.2-1.0); TOTAL PROTEIN 7.3 g/dL (6.4-8.2)
[2021-06-03 07:00] VITALS: BP 162/80
[2021-06-03] MEDS: PANTOPRAZOLE 40 MG TABLET.DR. PO SCH (07:57)
[2021-06-03] MEDS: LACTOBACILLUS RHAMNOSUS GG 1 CAPSULE. PO SCH ×2 (09:57→20:11)
[2021-06-03] MEDS: LISINOPRIL 10 MG TABLET PO SCH (09:57)
[2021-06-03] MEDS: MULTIVITAMIN with MINERAL TABLET. PO SCH (09:57)
[2021-06-03 11:00] VITALS: BP 152/78
[2021-06-03] MEDS ORDERED: HYDROcodone/APAP 7.5/325MG 1 TAB TABLET PO PRN (13:45)
--- NOTE | 2021-06-03 14:00 | NUR ---
Wound Care Wound Type/Assessment: patient seen per wound care consult. see wound assessment. patient has a sacral/coccyx wound patient said he has had for a while that patient has home health to help with dressing changes. the wound was cleaned, measured, pictured and redressed at this time with recommendations of ioplex with an abd pad and tape, change every 2-3 days. Treatment Recommendations/Plan: Recommendations to cleanse the wound to the sacral/coccyx area then apply ioplex (dressings left in room with patient) with an abd pad over and tape. Education provided: Educated patient on the POC Offloading surface/device: Wound care will order a wheelchair cushion for patient. Discharge Recommendations for dressings: Wound care will continue to f/u
[2021-06-03 14:46] VITALS: BP 141/75
--- NOTE | 2021-06-03 15:06 | PDOC ---
SUBJECTIVE Subjective Pt reports continued diarrhea states he will not f/u outpatient for stent removal OBJECTIVE Vital Signs Vital Signs Date Time Temp Pulse Resp B/P (MAP) Pulse Ox O2 Delivery O2 Flow Rate FiO2 06/03/21 14:46 98.2 75 18 141/75 (97) 97 Room Air 98.2 06/03/21 13:51 16 96 Room Air 06/03/21 13:02 16 96 Room Air 06/03/21 11:00 98.8 83 16 152/78 (102) 96 Room Air 98.8 06/03/21 09:57 77 162/80 06/03/21 08:23 Room Air 06/03/21 07:40 16 97 Room Air 06/03/21 07:00 98.4 77 18 162/80 (107) 94 Room Air 98.4 06/03/21 06:31 20 Room Air 06/03/21 03:23 98.5 79 18 174/71 (105) 97 Room Air 98.5 06/03/21 00:50 Room Air 06/03/21 00:20 18 Room Air 06/02/21 22:23 98.9 77 16 162/78 (106) 96 Room Air 98.9 06/02/21 20:00 Room Air 06/02/21 19:47 98.4 97 18 150/75 (100) 98 Room Air 98.4 06/02/21 19:08 Room Air 06/02/21 18:38 97 Room Air I & O Intake and Output 06/03/21 07:00 Intake Total 2100 ml Output Total 4975 ml Balance -2875 ml Intake Oral 200 ml IV Total 1900 ml Output Urine Total 2200 ml Stool Total 2775 ml PHYSICAL EXAM Physical Exam NAD Unlabored breathing Colostomy w liquid stool ASSESSMENT/PLAN Assessment/Plan Retained left ureteral stent UA with RBC, WBC, no bacteria. May be due to stent however empiric abx on-board, f/u cultures. Reviewed images, stent does not appear to be severely encrusted. Recommend cystoscopy, left ureteral stent removal. Pt refused yesterday. Concern for compliance with follow-up outpatient for removal. Pt scheduled for cystoscopy, left ureteral stent removal, possible ureteroscopy and laser stones (if stent is severely encrusted) on 06/[address] Walton. NPO at [place]. COMMENT Lab Laboratory Tests Test 06/02/21 17:16 06/02/21 20:52 06/03/21 04:00 06/03/21 08:10 Glucose (Fingerstick) 97 mg/dL (70-99) 108 mg/dL (70-99) 88 mg/dL (70-99) White Blood Count 4.7 x10^3/uL (4.0-11.0) Red Blood Count 4.42 x10^6/uL (4.30-5.70) Hemoglobin 11.3 g/dL (13.0-17.5) Hematocrit 35.1 % (39.0-53.0) Mean Corpuscular Volume 80 fL (79-100) Mean Corpuscular Hemoglobin 26 pg (25-35) Mean Corpuscular Hemoglobin Concent 32 g/dL (31-37) Red Cell Distribution Width 18.3 % (11.5-14.5) Platelet Count 188 x10^3/uL (140-400) Neutrophils (%) (Auto) 69 % (31-73) Lymphocytes (%) (Auto) 15 % (24-48) Monocytes (%) (Auto) 16 % (0-9) Eosinophils (%) (Auto) 0 % (0-3) Basophils (%) (Auto) 0 % (0-3) Neutrophils # (Auto) 3.2 x10^3/uL (1.8-7.7) Lymphocytes # (Auto) 0.7 x10^3/uL (1.0-4.8) Monocytes # (Auto) 0.7 x10^3/uL (0.0-1.1) Eosinophils # (Auto) 0.0 x10^3/uL (0.0-0.7) Basophils # (Auto) 0.0 x10^3/uL (0.0-0.2) Sodium Level 136 mmol/L (136-145) Potassium Level 3.8 mmol/L (3.5-5.1) Chloride Level 103 mmol/L (98-107) Carbon Dioxide Level 22 mmol/L (21-32) Anion Gap 11 (6-14) Blood Urea Nitrogen 20 mg/dL (8-26) Creatinine 0.9 mg/dL (0.7-1.3) Estimated GFR (Cockcroft-Gault) 86.1 BUN/Creatinine Ratio 22 (6-20) Glucose Level 87 mg/dL (70-99) Calcium Level 8.5 mg/dL (8.5-10.1) Total Bilirubin 0.2 mg/dL (0.2-1.0) Aspartate Amino Transf (AST/SGOT) 29 U/L (15-37) Alanine Aminotransferase (ALT/SGPT) 20 U/L (16-63) Alkaline Phosphatase 90 U/L (46-116) Total Protein 7.3 g/dL (6.4-8.2) Albumin 3.2 g/dL (3.4-5.0) Albumin/Globulin Ratio 0.8 (1.0-1.7) Test 06/03/21 11:27 Glucose (Fingerstick) 91 mg/dL (70-99) Justifications for Admission Other Justification NANCY YOUNG Jun 03, 2021 15:05
--- NOTE | 2021-06-03 15:14 | NUR ---
SS following for discharge planning. SS reviewed pt chart and discussed with pt RN. Pt is from home alone and is currently on room air. Urology consulted. Pt scheduled for procedure with Urology tomorrow. CDIFF pending. Pt reported that he has a RN come every other day to his home. SS will continue to follow for discharge planning.
[2021-06-03 19:17] VITALS: BP 134/71
[2021-06-03 22:31] VITALS: BP 156/80
[2021-06-04] VITALS (7 sets, daily range): BP systolic 127–164; BP diastolic 63–77
[2021-06-04] MEDS: PIPERACILLIN/TAZOBACTAM 3.375 GM in IV NORMAL SALINE 50ML 50 ML IV SCH ×4 (00:51→17:22)
--- NOTE | 2021-06-04 01:17 | PN ---
DATE: 06/03/2021 DAILY PROGRESS NOTE LOCATION: He is in room 663. SUBJECTIVE: This 61-year-old male remains hospitalized with profuse diarrhea. It has slowed down somewhat. He has been found to have an incidental stent, which has been traced back to a year ago and Urology is dealing with the same. We are not providing good pain control. We adjust pain meds for the same. He does remain weak. With the diarrhea, he has become very hungry. OBJECTIVE: VITAL SIGNS: Stable. He is afebrile. GENERAL: He is awake and alert. CHEST: Clear. HEART: Regular. ABDOMEN: Benign. There is minimal formed contents in his ostomy bag. EXTREMITIES: He has no significant edema. We are still awaiting wound care consult. ASSESSMENT: 1. Severe diarrhea with dehydration. 2. Left ureteral stent. 3. Possible urinary tract infection with cultures pending. PLAN: Continue hydration with eye towards discharge once the diarrhea will allow. Urology hopefully will remove the stent while he is in the hospital. We will adjust pain medicines back to his home dose. JAZIEL/MARIBEL/KRISTI DR: JAZIEL/helene TID: [id number]
[2021-06-04] MEDS: oxyCODONE/APAP 5/325 1 TAB TABLET PO PRN ×3 (05:21→14:23)
[2021-06-04] MEDS ORDERED: PROCHLORPERAZINE 10 MG/2 ML VIAL. IVP PRN (06:00)
[2021-06-04] MEDS ORDERED: fentaNYL PF VIAL 100 MCG/2 ML VIAL IVP PRN ×2 (06:00)
[2021-06-04] MEDS ORDERED: HYDROmorphone 2 MG/ML INJ. IVP PRN (06:00)
[2021-06-04] MEDS ORDERED: IV RINGERS,LACTATED 1000ML 1,000 ML IV SCH (06:00)
[2021-06-04] MEDS: LACTOBACILLUS RHAMNOSUS GG 1 CAPSULE. PO SCH ×2 (08:38→21:07)
[2021-06-04] MEDS: LISINOPRIL 10 MG TABLET PO SCH (08:40)
[2021-06-04] MEDS: PANTOPRAZOLE 40 MG TABLET.DR. PO SCH (08:40)
[2021-06-04] MEDS: MULTIVITAMIN with MINERAL TABLET. PO SCH (08:40)
--- NOTE | 2021-06-04 13:45 | NUR ---
SS following up with discharge planning. SS reviewed pt chart and discussed with pt RN. Pt is currently on room air. COVID19 negative. CDIFF negative. Urology following. Pt having stent removal with Urology today. Discharge plan is currently to home when medically ready for discharge. SS will continue to follow for discharge planning.
[2021-06-04] MEDS ORDERED: IOHEXOL 300 MG/ML 50 ML VIAL. ONE (14:33)
[2021-06-04] MEDS ORDERED: LIDOCAINE 2% JELLY 6ML IN APPLICATOR. ONE (14:34)
[2021-06-04] MEDS ORDERED: AMLO-186 PO (14:52)
[2021-06-04] MEDS ORDERED: PIOG30TA41 PO (14:52)
[2021-06-04] MEDS ORDERED: OXYC1TAB19 PO (14:52)
[2021-06-04] MEDS ORDERED: ROPI0.254 PO (14:52)
[2021-06-04] MEDS ORDERED: DEXTROSE 50% 25 GM / 50ML DISP.SYRIN. IV ONE (14:53)
[2021-06-04] MEDS ORDERED: PROPOFOL 10 MG/ML (20ML) VIAL. IV ONE (14:54)
[2021-06-04] MEDS ORDERED: DEXAMETHASONE SOD PHOS 4 MG/ML VIAL ONE (14:54)
[2021-06-04] MEDS ORDERED: FAMOTIDINE 20 MG/2 ML VIAL ONE (14:54)
[2021-06-04] MEDS ORDERED: LIDOCAINE 2% PF 5 ML VIAL. ONE (14:54)
[2021-06-04] MEDS ORDERED: fentaNYL PF VIAL 100 MCG/2 ML VIAL ONE (14:54)
[2021-06-04] MEDS ORDERED: ONDANSETRON PF 4 MG/2 ML VIAL. ONE (14:54)
[2021-06-04] MEDS ORDERED: ceFAZolin SODIUM IV Push 1 GM VIAL. IVP PRN (15:00)
[2021-06-04] MEDS ORDERED: IV DEXTROSE 5% 250 ML BAG. IV PRN (15:00)
[2021-06-04] MEDS ORDERED: DEXTROSE 50% 25 GM / 50ML DISP.SYRIN. IV PRN (15:00)
[2021-06-04] MEDS ORDERED: INSULIN LISPRO 100 UNIT/ML 3ML VIAL for OP,RR ONLY. SQ PRN (15:00)
[2021-06-04] MEDS: MORPHINE SULFATE 2 MG/ML INJ. IVP PRN ×2 (15:50→16:05)
[2021-06-04] MEDS ORDERED: MORPHINE SULFATE 2 MG/ML INJ. ONE (16:01)
--- NOTE | 2021-06-04 16:03 | PDOC4 ---
OPERATIVE NOTE Date: Date: Jun 04, 2021 Pre-Op Diagnosis: Retained foreign body Pyelonephritis Post-Op Diagnosis: same Procedure Performed: Cystoscopy Stent removal Surgeon: Blaise Walton MD Anesthesia Type: general Blood Loss: 0cc Specimans Obtained: none Findings: moderately encrusted stent Complications: none Operative Note: The patient was taken to the OR on the above date after informed consent. General anesthesia was administered and the patient placed in the dorsal lithotomy position. After the patient was prepped and draped cystoscopy was performed with a rigid cystoscope. This revealed no abnormalities. The left ur eter had a stent with mild encrustation and this was grabbed with stent graspers and gently removed with minimal resistance. The bladder was drained and the patient tolerated the procedure well then taken to the recover in stable condition after being awoken from anesthesia. Plan: Return to floor. CAMERON WALTON MD Jun 04, 2021 16:03
[2021-06-04] MEDS: oxyCODONE/APAP 7.5/325 1 TAB TABLET PO PRN (18:31)
--- NOTE | 2021-06-04 19:03 | NUR ---
Patient's monitor in room & most of frequent vital signs were lost after cystoscopy, however vitals were stable. Patient has been awake since procedure, resting in bed. Patient said he had some pain & small amount of blood when he first urinated after procedure. Will continue to monitor.
[2021-06-04] MEDS ORDERED: FLUCONAZOLE 100 MG TABLET. PO ONE (21:00)
[2021-06-04] MEDS: rOPINIRole 0.25 MG TABLET. PO SCH (21:07)
[2021-06-05] MEDS: PIPERACILLIN/TAZOBACTAM 3.375 GM in IV NORMAL SALINE 50ML 50 ML IV SCH ×2 (00:25→05:38)
[2021-06-05 03:25] VITALS: BP 183/89
[2021-06-05] MEDS: oxyCODONE/APAP 7.5/325 1 TAB TABLET PO PRN ×4 (05:47→20:04)
[2021-06-05 07:00] VITALS: BP 172/93
[2021-06-05] MEDS: LACTOBACILLUS RHAMNOSUS GG 1 CAPSULE. PO SCH ×2 (08:48→20:03)
[2021-06-05] MEDS: PANTOPRAZOLE 40 MG TABLET.DR. PO SCH (08:48)
[2021-06-05] MEDS: MULTIVITAMIN with MINERAL TABLET. PO SCH (08:48)
[2021-06-05] MEDS: PIOGLITAZONE 15 MG TABLET. PO SCH (08:48)
[2021-06-05] MEDS: LISINOPRIL 10 MG TABLET PO SCH (08:49)
--- NOTE | 2021-06-05 09:48 | PDOC ---
Provider Note Date of Service: DATE: 06/05/21 TIME: 09:37 Provider Note still has diarrhea and wants to hold dc until better- tests neg- will add flucon and dc zosyn te urine cult-, follow Justifications for Admission Other Justification MARGARET DUDLEY MD Jun 05, 2021 09:48
--- NOTE | 2021-06-05 10:23 | PDOC ---
PROGRESS NOTE DATE OF SERVICE: DATE: 06/05/21 TIME: 10:20 CHIEF COMPLAINT: diarrhea SUBJECTIVE: HPI: Patient resting in bed. No complaints. Problems: Problems Medical Problems: (1) Acute diarrhea Status: Acute (2) Acute pyelonephritis Status: Acute OBJECTIVE: Vital Signs: Vital Signs Date Time Temp Pulse Resp B/P (MAP) Pulse Ox O2 Delivery O2 Flow Rate FiO2 06/05/21 08:49 72 172/93 06/05/21 08:49 72 172/93 06/05/21 07:00 98.2 72 18 172/93 (119) 97 Room Air 98.2 06/05/21 06:20 Room Air 06/05/21 05:47 Room Air 06/05/21 03:25 97.0 68 18 183/89 (120) 98 Room Air 97.0 06/04/21 23:53 Room Air 06/04/21 23:00 97.1 63 18 127/63 (84) 98 Room Air 97.1 06/04/21 22:46 16 97 Room Air 06/04/21 20:00 Room Air 06/04/21 20:00 Room Air 06/04/21 20:00 Room Air 06/04/21 20:00 Room Air 06/04/21 19:44 97.0 97.0 06/04/21 18:31 Room Air 06/04/21 18:02 63 136/67 (90) 97 Room Air 06/04/21 17:32 66 164/77 (106) 98 Room Air 06/04/21 16:05 20 99 Room Air 06/04/21 15:59 62 20 154/78 97 Room Air 06/04/21 15:50 20 99 Room Air 06/04/21 15:44 66 20 137/74 100 Room Air 06/04/21 15:03 97.0 69 18 155/82 98 Room Air 97.0 06/04/21 14:53 Room Air 06/04/21 14:44 97.8 70 19 137/69 (91) 98 Room Air 97.8 06/04/21 14:23 Room Air 06/04/21 11:00 97.4 65 19 154/75 (101) 98 Room Air 97.4 06/04/21 10:53 Room Air 06/04/21 10:23 Room Air I & O Intake and Output 06/05/21 07:00 Intake Total 1360 ml Output Total 2650 ml Balance -1290 ml Intake Oral 760 ml IV Total 600 ml Output Urine Total 950 ml Stool Total 1700 ml PHYSICAL EXAM: Physical Exam: General: Pleasant, no acute distress, well groomed Eyes: conjunctiva anicteric, eyes full range of motion ENT: moist oral mucosa, normal dentition Neck: Trachea midline, no masses Respiratory: unlabored breathing, not using accessory muscles, no crackles or wheezes Abdomen: ostomy Skin: no rashes or skin lesions on visualized skin Psych: normal mood, affect. Alert and oriented x 3. LABS: Laboratory Tests Test 06/02/21 11:28 06/02/21 17:16 06/02/21 20:52 06/03/21 04:00 Glucose (Fingerstick) 123 mg/dL (70-99) 97 mg/dL (70-99) 108 mg/dL (70-99) White Blood Count 4.7 x10^3/uL (4.0-11.0) Red Blood Count 4.42 x10^6/uL (4.30-5.70) Hemoglobin 11.3 g/dL (13.0-17.5) Hematocrit 35.1 % (39.0-53.0) Mean Corpuscular Volume 80 fL (79-100) Mean Corpuscular Hemoglobin 26 pg (25-35) Mean Corpuscular Hemoglobin Concent 32 g/dL (31-37) Red Cell Distribution Width 18.3 % (11.5-14.5) Platelet Count 188 x10^3/uL (140-400) Neutrophils (%) (Auto) 69 % (31-73) Lymphocytes (%) (Auto) 15 % (24-48) Monocytes (%) (Auto) 16 % (0-9) Eosinophils (%) (Auto) 0 % (0-3) Basophils (%) (Auto) 0 % (0-3) Neutrophils # (Auto) 3.2 x10^3/uL (1.8-7.7) Lymphocytes # (Auto) 0.7 x10^3/uL (1.0-4.8) Monocytes # (Auto) 0.7 x10^3/uL (0.0-1.1) Eosinophils # (Auto) 0.0 x10^3/uL (0.0-0.7) Basophils # (Auto) 0.0 x10^3/uL (0.0-0.2) Sodium Level 136 mmol/L (136-145) Potassium Level 3.8 mmol/L (3.5-5.1) Chloride Level 103 mmol/L (98-107) Carbon Dioxide Level 22 mmol/L (21-32) Anion Gap 11 (6-14) Blood Urea Nitrogen 20 mg/dL (8-26) Creatinine 0.9 mg/dL (0.7-1.3) Estimated GFR (Cockcroft-Gault) 86.1 BUN/Creatinine Ratio 22 (6-20) Glucose Level 87 mg/dL (70-99) Calcium Level 8.5 mg/dL (8.5-10.1) Total Bilirubin 0.2 mg/dL (0.2-1.0) Aspartate Amino Transf (AST/SGOT) 29 U/L (15-37) Alanine Aminotransferase (ALT/SGPT) 20 U/L (16-63) Alkaline Phosphatase 90 U/L (46-116) Total Protein 7.3 g/dL (6.4-8.2) Albumin 3.2 g/dL (3.4-5.0) Albumin/Globulin Ratio 0.8 (1.0-1.7) Test 06/03/21 08:10 06/03/21 11:27 06/03/21 16:49 06/03/21 20:57 Glucose (Fingerstick) 88 mg/dL (70-99) 91 mg/dL (70-99) 103 mg/dL (70-99) 100 mg/dL (70-99) Test 06/04/21 08:49 06/04/21 14:52 06/04/21 15:51 06/04/21 20:48 SARS-CoV-2 Antigen (Rapid) Negative (NEGATIVE) Glucose (Fingerstick) 67 mg/dL (70-99) 127 mg/dL (70-99) 127 mg/dL (70-99) Test 06/05/21 08:04 Glucose (Fingerstick) 122 mg/dL (70-99) Microbiology 06/01/21 Blood Culture - Preliminary, Resulted NO GROWTH AFTER 3 DAYS 06/01/21 Urine Culture - Final, Complete Anne Marie [place] MEDICATIONS: Current Medications Medications (Trade) Dose Ordered Sig/Triny Start Time Stop Time Status Last Admin Dose Admin Acetaminophen (Tylenol) 650 mg PRN Q4HRS PRN 06/02/21 01:30 06/03/21 01:29 DC Acetaminophen/ Hydrocodone Bitart (Lortab 7.5/325) 1 tab PRN Q4HRS PRN 06/03/21 13:45 06/05/21 09:51 DC 06/04/21 22:46 1 TAB Amlodipine Besylate (Norvasc) 10 mg DAILY 06/05/21 10:00 Cefazolin Sodium (Ancef) 2 gm 1X PREOP PRN 06/04/21 15:00 Cancel Cefazolin Sodium/ Dextrose 50 ml @ As Directed STK-MED ONCE 06/04/21 15:02 06/04/21 15:02 DC Dexamethasone Sodium Phosphate (Decadron) 4 mg STK-MED ONCE 06/04/21 14:54 06/04/21 14:54 DC Dextrose (Dextrose 50%-Water Syringe) 12.5 gm PRN Q15MIN PRN 06/04/21 15:00 06/04/21 15:06 12.5 GM Dextrose (Iv Dextrose 5%) 250 ml PRN Q15MIN PRN 06/04/21 15:00 Famotidine (Pepcid Vial) 20 mg STK-MED ONCE 06/04/21 14:54 06/04/21 14:54 DC Fentanyl Citrate (Fentanyl 2ml Vial) 100 mcg STK-MED ONCE 06/04/21 14:54 06/04/21 14:54 DC Fluconazole (Diflucan) 100 mg DAILY 06/05/21 12:00 Hydromorphone HCl (Dilaudid) 0.5 mg PRN Q10MIN PRN 06/04/21 06:00 06/05/21 05:59 DC Info (CONTRAST GIVEN -- Rx MONITORING) 1 each PRN DAILY PRN 06/01/21 22:30 06/03/21 22:29 DC Insulin Human Lispro (HumaLOG VIAL for OP,RR ONLY) 0-10 units PRN Q1HR PRN 06/04/21 15:00 06/05/21 14:59 Iohexol (Omnipaque 300 Mg/ml) 50 ml STK-MED ONCE 06/04/21 14:33 06/04/21 14:34 DC 06/04/21 15:59 50 ML Lactobacillus Rhamnosus (Culturelle) 1 cap BID 06/03/21 09:00 06/05/21 08:48 1 CAP Lidocaine HCl (Glydo (Lidocaine) Jelly) 6 mali STK-MED ONCE 06/04/21 14:34 06/04/21 14:34 DC 06/04/21 15:59 6 MALI Lidocaine HCl (Lidocaine Pf 2% Vial) 5 ml STK-MED ONCE 06/04/21 14:54 06/04/21 14:54 DC Lisinopril (Prinivil) 10 mg DAILY 06/02/21 09:00 06/05/21 08:49 10 MG Morphine Sulfate (Morphine Sulfate) 2 mg STK-MED ONCE 06/04/21 16:01 06/04/21 16:01 DC Multivitamins (Thera M Plus) 1 tab DAILY 06/02/21 09:00 06/05/21 08:48 1 TAB Ondansetron HCl (Zofran) 4 mg STK-MED ONCE 06/04/21 14:54 06/04/21 14:54 DC Oxycodone/ Acetaminophen (Percocet 5/325) 1 tab PRN Q4HRS PRN 06/03/21 13:45 06/04/21 15:19 DC 06/04/21 14:23 1 TAB Oxycodone/ Acetaminophen (Percocet 7.5/ 325) 1 tab PRN Q4HRS PRN 06/04/21 15:30 06/05/21 05:47 1 TAB Pantoprazole Sodium (Protonix) 40 mg DAILYAC 06/03/21 07:30 06/05/21 08:48 40 MG Pioglitazone HCl (Actos) 30 mg DAILY 06/05/21 09:00 06/05/21 08:48 30 MG Piperacillin Sod/ Tazobactam Sod (Zosyn Per Pharmacy) 1 each PRN DAILY PRN 06/02/21 01:30 06/05/21 09:54 DC Piperacillin Sod/ Tazobactam Sod 3.375 gm/Sodium Chloride 50 ml @ 100 mls/hr Q6HRS 06/02/21 06:00 06/05/21 09:51 DC 06/05/21 05:38 100 MLS/HR Piperacillin Sod/ Tazobactam Sod 4.5 gm/Dextrose 100 ml @ 200 mls/hr 1X ONCE 06/02/21 00:30 06/02/21 00:59 DC 06/02/21 01:13 200 MLS/HR Piperacillin Sod/ Tazobactam Sod 4.5 gm/Sodium Chloride 100 ml @ 200 mls/hr 1X ONCE 06/02/21 01:00 06/02/21 01:29 Cancel Prochlorperazine Edisylate (Compazine) 5 mg PACU PRN PRN 06/04/21 06:00 06/05/21 05:59 DC Propofol (Diprivan) 200 mg STK-MED ONCE 06/04/21 14:54 06/04/21 14:54 DC Ringer's Solution 1,000 ml @ 30 mls/hr Q24H 06/04/21 06:00 06/04/21 17:59 DC 06/04/21 05:35 30 MLS/HR Ropinirole HCl (Requip) 0.25 mg HS 06/04/21 21:00 06/04/21 21:07 0.25 MG Sodium Chloride 1,000 ml @ 75 mls/hr [id number] 06/02/21 02:00 06/03/21 01:59 DC 06/02/21 17:05 75 MLS/HR ASSESSMENT & PLAN Retained left ureteral stent UA with RBC, WBC, no bacteria. May be due to stent however empiric abx on-board, f/u cultures. Recommend 10-14 day course of culture specific antibiotics. Reviewed images, stent does not appear to be severely encrusted. Patient taken 06/[address] Walton for cystoscopy with left ureteral stent removal Recommend followup with Dr. Walton in 1 month. OK for discharge from urology standpoint. Problem List: Problems Medical Problems: (1) Acute diarrhea Status: Acute (2) Acute pyelonephritis Status: Acute BHAKTI [employer] IN[employer]CTOR Jun 05, 2021 10:23
[2021-06-05 10:51] VITALS: BP 141/74
[2021-06-05] MEDS: FLUCONAZOLE 100 MG TABLET. PO SCH (11:00)
[2021-06-05 15:00] VITALS: BP 152/74
[2021-06-05 19:38] VITALS: BP 145/71
[2021-06-05] MEDS: rOPINIRole 0.25 MG TABLET. PO SCH (20:03)
[2021-06-05 22:45] VITALS: BP 154/80
[2021-06-06 03:30] VITALS: BP 164/87
[2021-06-06] MEDS: oxyCODONE/APAP 7.5/325 1 TAB TABLET PO PRN ×4 (06:54→20:34)
[2021-06-06 07:00] VITALS: BP 163/78
[2021-06-06] MEDS: MULTIVITAMIN with MINERAL TABLET. PO SCH (08:37)
[2021-06-06] MEDS: PANTOPRAZOLE 40 MG TABLET.DR. PO SCH (08:37)
[2021-06-06] MEDS: LACTOBACILLUS RHAMNOSUS GG 1 CAPSULE. PO SCH ×2 (08:37→20:34)
[2021-06-06] MEDS: PIOGLITAZONE 15 MG TABLET. PO SCH (08:37)
[2021-06-06] MEDS: LISINOPRIL 10 MG TABLET PO SCH (08:37)
[2021-06-06] MEDS: FLUCONAZOLE 100 MG TABLET. PO SCH (08:42)
--- NOTE | 2021-06-06 09:30 | NUR ---
NURSING NOTE Pt care assumed at this time from Harjit WESTON. Pt is A/Ox4, sitting in bed. Had colostomy output and some tea colored urine output. Pt denies pain or needs at this time. Call light in reach, will monitor.
--- NOTE | 2021-06-06 09:56 | PDOC ---
Provider Note Date of Service: DATE: 06/06/21 TIME: 09:55 Provider Note sleeping, vss, not clear how much diarrhea he is having, or source- c diff neg, no new meds, usinf flucon re urine cult- will continue current care , add trial od colestid- may need coloscopy re occult colitis if persists Justifications for Admission Other Justification MARGARET DUDLEY MD Jun 06, 2021 09:56
[2021-06-06] MEDS: COLESTIPOL HCL 1 GM TABLET PO SCH ×2 (10:33→22:00)
[2021-06-06 11:00] VITALS: BP 142/70
[2021-06-06 19:00] VITALS: BP 113/62
[2021-06-06] MEDS: rOPINIRole 0.25 MG TABLET. PO SCH (20:34)
[2021-06-06 23:19] VITALS: BP 157/87
[2021-06-07 03:28] VITALS: BP 175/84
[2021-06-07] MEDS: oxyCODONE/APAP 7.5/325 1 TAB TABLET PO PRN ×2 (06:30→10:59)
[2021-06-07] MEDS: PANTOPRAZOLE 40 MG TABLET.DR. PO SCH (06:31)
[2021-06-07 07:00] VITALS: BP 160/84
--- NOTE | 2021-06-07 08:12 | PDOC ---
Provider Note Date of Service: DATE: 06/07/21 TIME: 08:11 Provider Note seems better even prior to colestipol, will hold that, can go home today if he is ready, no new meds Justifications for Admission Other Justification MARGARET DUDLEY MD Jun 07, 2021 08:12
[2021-06-07] MEDS: PIOGLITAZONE 15 MG TABLET. PO SCH (09:18)
[2021-06-07] MEDS: MULTIVITAMIN with MINERAL TABLET. PO SCH (09:19)
[2021-06-07] MEDS: LISINOPRIL 10 MG TABLET PO SCH (09:22)
[2021-06-07] MEDS: LACTOBACILLUS RHAMNOSUS GG 1 CAPSULE. PO SCH (09:22)
[2021-06-07] MEDS: FLUCONAZOLE 100 MG TABLET. PO SCH (09:23)
[2021-06-07 11:00] VITALS: BP 129/73
--- NOTE | 2021-06-07 11:17 | NUR ---
states he is going home this afternoon. He spoke with his home health rn and she will see him tomorrow. explained that I do not have an order for home health. and Dr. Deleon did not write for one on discharge." already have one and spoke with them . They will see me tomorrow"
--- NOTE | 2021-06-07 14:59 | NUR ---
colostomy bag changed prior to dismissal. refused to have his coccyx wound dressing changed. states it was changed yesterday. reviewed discharge instructions with him. instructed to follow up with dr. urias within the next 7 days. rn to check colostomy bag/ulcer tomorrow. dismissed to home
--- NOTE | 2021-06-09 09:22 | DS ---
DATE OF DISCHARGE: 06/07/2021 HOSPITAL SUMMARY: A 61-year-old white male admitted with persistent diarrhea and indwelling left ureteral stent that was bothering him as well. The stent was removed by the urologist. Urine culture grew out Anne Marie and he was treated with oral fluconazole with good results. His diarrhea persisted throughout the hospital stay of unknown etiology and all studies including stool cultures, C. diff and other tests were unremarkable. prior to his discharge and he was comfortable to be followed as an outpatient at that point. FINAL DIAGNOSES: 1. Acute diarrhea, idiopathic. 2. Urinary tract infection secondary to Anne Marie albicans from indwelling left ureteral stent. OPERATIONS AND PROCEDURES: Cystoscopy and stent removal. COMPLICATIONS: None. CONSULTATION: Urology group. DISPOSITION: Prognosis is good. KMIBERLY DR: Cristian TID: [id number]
== END 2021-06-07 15:19 | disposition home or self-care (01) | DRG 699 ==
LOC: ER 17:59 → 6 SOUTH 06-02 01:10
PROVIDERS: ADMIT Family Medicine; ATTEND Family Medicine
PROC: 0TP98DZ Removal of Intraluminal Device from Ureter, Via Natural or Artificial Opening Endoscopic (ICD-10-PCS; principal; 2021-06-04 15:00)
DX: T19.8XXA Foreign body in other parts of genitourinary tract, initial encounter (principal); N10 Acute pyelonephritis; B37.49 Other urogenital candidiasis; E11.9 Type 2 diabetes mellitus without complications; E78.00 Pure hypercholesterolemia, unspecified; E78.5 Hyperlipidemia, unspecified; E86.0 Dehydration; I11.0 Hypertensive heart disease with heart failure; I50.9 Heart failure, unspecified; N28.89 Other specified disorders of kidney and ureter; Z87.891 Personal history of nicotine dependence; Z93.3 Colostomy status; Z96.659 Presence of unspecified artificial knee joint; G89.29 Other chronic pain; Z88.5 Allergy status to narcotic agent; X58.XXXA Exposure to other specified factors, initial encounter; Y93.89 Activity, other specified; Y92.89 Other specified places as the place of occurrence of the external cause; Y99.8 Other external cause status; Z20.822 Contact with and (suspected) exposure to COVID-19; R19.7 Diarrhea, unspecified
CPT/HCPCS: 36415; 74177; 80053; 81001; 82962; 83605; 84145; 85025; 87040; 87086; 87426; 87493; 87505; 96361; 96365; 96375; A4657; A4911; A4930; C1758; C1769; J0690; J1100; J1170; J2270; J2405; J2543; J2704; J3010; J3490; J7030; J7060; J7120; Q9967; 99285-25; G0378